=== PATIENT | female | born 1965 | race Caucasian/White ===

== ENCOUNTER 2022-12-14 13:56 | Outpatient (REF) | payer OTHER, SELFPAY ==
[2022-12-14 15:49] LABS: Urine Cytology See Pathology rpt
[2022-12-14 15:55] LABS: Blood Urea Nitrogen 6 mg/dL (9-16); Estimated Glomerular Filt Rate > 60
== END 2022-12-14 13:57 | disposition home or self-care (01) ==
LOC: HO.LAB 13:56
PROVIDERS: PCP Internal Medicine Medical Oncology; Visit Provider Nurse Practitioner Family
DX: N39.46 Mixed incontinence (principal); R31.29 Other microscopic hematuria; N32.81 Overactive bladder; R31.0 Gross hematuria
CPT/HCPCS: 36415; 51798; 82565; 84520; 88112; 99202

== ENCOUNTER 2022-12-14 16:08 | Outpatient (REF) | payer OTHER, SELFPAY | END 2022-12-14 16:09 | disposition home or self-care (01) | LOC: HO.LNP 16:08 | PROVIDERS: Visit Provider Nurse Practitioner Family | DX: Z13.89 Encounter for screening for other disorder (principal) ==

== ENCOUNTER 2023-01-09 11:00 | Outpatient (REF) | payer OTHER, SELFPAY ==
--- NOTE | ~2023-01-09 | CT_ITS ---
EXAMINATION: CT ABDOMEN AND PELVIS WITHOUT AND WITH CONTRAST CLINICAL INFORMATION: Gross hematuria COMPARISON: None available. TECHNIQUE: Noncontrast CT of the abdomen and pelvis is performed followed by split bolus contrast-enhanced images using 85 mL Omnipaque 350 contrast.? Postcontrast imaging is performed during the combined nephrogram and excretion phase. Sagittal and coronal reformatted images were obtained on the technologist's workstation for both the precontrast and postcontrast phases. This CT examination was performed using dose optimization techniques as appropriate, variously including the following: *Automated exposure control *Adjustment of mA and/or kV according to patient size (this includes techniques or standardized protocols for targeted exams where dose is matched to indication/reason for exam; i.e. extremities or head) *Use of iterative reconstruction technique DLP: 378 mGy-cm FINDINGS: LUNG BASES: Minimal compressive atelectasis right lung base. Heart size is normal. LIVER, GALLBLADDER, AND BILIARY TREE: The liver is normal in size, shape, and attenuation. No focal hepatic lesion or biliary ductal dilatation is present. The gallbladder is unremarkable with no evidence of radiopaque gallstones, gallbladder wall thickening, or obvious pericholecystic inflammatory changes. PANCREAS: Unremarkable. SPLEEN: Unremarkable. ADRENAL GLANDS: Unremarkable. KIDNEYS AND URETERS: On noncontrast CT there is no radiopaque renal or ureteral calculi. Following contrast administration there is bilateral symmetrical nephrograms with left kidney measuring 12.1 cm right kidney measuring 11.8 cm. There are bilateral extrarenal kidney pelvises. There is good opacification of kidney pelvis and the ureters without any intraluminal filling defect or narrowing. No perinephric stranding visualized. BLADDER: The bladder is unremarkable. GASTROINTESTINAL TRACT: There is diffuse colonic diverticulosis with mild mural thickening involving the sigmoid colon but no pericolic fat stranding seen to suspect any acute inflammatory process. ABDOMINAL WALL: No significant hernia is appreciated. LYMPH NODES: Normal. VASCULAR: Unremarkable. PELVIC VISCERA: The uterus is retroverted. No adnexal mass or free fluid seen. OSSEUS STRUCTURES: There is grade 1 anterolisthesis L4-L5 and degenerative disc changes L4-L5 and L5/S1 disc levels. Rest the disc levels are unremarkable. Mild facet joint arthropathy L5 4-5 disc level is noted. No aggressive lytic or sclerotic process seen. CT/CT urogram IMPRESSION: 1. No radiopaque urolith or hydroureteronephrosis. There are bilateral extrarenal kidney pelvises. The bladder is unremarkable. 2. Diffuse colonic diverticulosis with mild mural thickening involving the sigmoid colon but no pericolic fat stranding seen to suspect any acute inflammatory process. 3. Grade 1 anterolisthesis L4 over L5 with degenerative disc changes L4-L5 and L5-S1 disc levels.
[2023-01-09] MEDS: iohexoL 350 MG/ML 100 ML INFUS..BTL IV (11:44)
== END 2023-01-09 11:01 | disposition home or self-care (01) ==
LOC: HO.CT 11:00
PROVIDERS: PCP Internal Medicine Medical Oncology; Visit Provider Nurse Practitioner Family
DX: R31.0 Gross hematuria (principal)
CPT/HCPCS: 74178; Q9967

== ENCOUNTER 2023-01-09 11:46 | Outpatient (REF) | payer OTHER, SELFPAY ==
--- NOTE | ~2023-01-09 | MM_ITS ---
EXAMINATION: MM SCREENING DIGITAL BREAST TOMOSYNTHESIS, BILATERAL CLINICAL INFORMATION: Screening. Asymptomatic. Prior [id number] mammography from [place] currently unavailable. Prior local mammogram 2005, purged. No known family history breast cancer. The lifetime risk of breast cancer based on the Tyrer-Cuzick Model is 5%. COMPARISON: None. TECHNIQUE: Digital breast tomosynthesis is performed in both the craniocaudal and mediolateral oblique views along with computer-aided detection (CAD). Synthesized 2D images are generated from the tomosynthesis. FINDINGS: There are scattered areas of fibroglandular density (ACR BI-RADS breast composition Category b). There are no significant masses, abnormal calcifications, or other abnormalities. The axilla and skin contours are unremarkable. Radiology department staff will attempt to retrieve prior [id number] mammography to allow for comparison in an addendum report. MM/MM tomosynthesis screening BI IMPRESSION: No mammographic evidence of malignancy. ASSESSMENT: BI-RADS 1: Negative RECOMMENDATION: -Routine annual mammography screening. -Radiology department staff will attempt to retrieve prior [id number] mammography to allow for comparison in an addendum report. This patient's information was entered into a reminder system with a target due date for their next mammogram.
--- NOTE | ~2023-01-09 | MM_ITS ---
EXAMINATION: BONE DENSITOMETRY CLINICAL INDICATION: Menopausal and perimenopausal disorder, unspecified. COMPARISON: None (current study represents initial baseline exam). TECHNIQUE: Using a [employer] DXA System (software version: 13.1) manufactured by [employer], dual-energy x-ray absorptiometry was performed of the lumbar spine and left hip. The images are of good technical quality. Summary results are attached. FINDINGS: AP SPINE L1-L4: BMD 0.790 g/cm2, Z-score -1.8, T-score -3.2, osteoporosis. LEFT FEMUR, NECK: BMD 0.674 g/cm2, Z-score -1.2, T-score -2.6, osteoporosis. LEFT FEMUR, TOTAL: BMD 0.698 g/cm2, Z-score -1.4, T-score -2.5, osteoporosis. IDENTIFIED RISK FACTORS: Menopause, height loss, tobacco use (current smoker). HISTORY OF FRACTURE: None listed. MEDICATIONS: Vitamin D. MM/XR DEXA axial skeleton IMPRESSION: 1. DIAGNOSIS: Osteoporosis based on the lowest T-score value of -3.2 in the lumbar spine applying World Health Organization criteria. 2. 10-YEAR FRACTURE RISK PREDICTION, FRAX: According to the guidelines, FRAX calculation should only be performed on patients in the osteopenia bone density category. Therefore, FRAX was not performed on this patient. 3. Treatment Recommendations: NOF guidelines recommend consideration for treatment in postmenopausal women and men age 50 and older presenting with the following: -A hip or vertebral (clinical or morphometric) fracture. -T-score less than or equal to -2.5 at the femoral neck or spine after appropriate evaluation to exclude secondary causes. -Low bone mass at the hip or spine and a 10-year fracture probability by FRAX of greater than or equal to 3% for hip fracture or greater than or equal to 20% for major osteoporotic fracture based on the [place] adapted WHO algorithm. 4. Other Recommendations: All treatment decisions require clinical judgment and consideration of individual patient factors, including patient preferences, comorbidities, previous drug use, risk factors not captured in the FRAX model (e.g. frailty, falls, vitamin D deficiency, increased bone turnover, interval significant decline in bone density) and possible under or overestimation of fracture risk by FRAX. Additional medical evaluation for secondary cause of low bone mineral density may be appropriate. FUTURE SCAN RECOMMENDATION: People with diagnosed cases of osteoporosis or at high risk for fracture should have regular bone mineral density tests. For patients eligible for Medicare, routine testing is allowed once every 2 years. The testing frequency can be increased to one year for patients who have rapidly progressing disease, those who are receiving or discontinuing medical therapy to restore bone mass, or have additional risk factors.
== END 2023-01-09 11:47 | disposition home or self-care (01) ==
LOC: HO.MAMMO 11:46
PROVIDERS: Visit Provider Internal Medicine Medical Oncology
DX: Z12.31 Encounter for screening mammogram for malignant neoplasm of breast (principal); Z13.820 Encounter for screening for osteoporosis; Z78.0 Asymptomatic menopausal state
CPT/HCPCS: 77063; 77067; 77080

== ENCOUNTER 2023-01-26 11:02 | Outpatient (REF) | payer OTHER, SELFPAY ==
[2023-01-26 11:23] LABS: MANUAL DIFF FLAG NO
[2023-01-26 12:07] LABS: Basophils Absolute Auto 0.1 X10*3/uL (0.0-0.2); Basophils Percent Auto 0.5 % (0-2); Eosinophils Absolute Auto 0.1 X10*3/uL (0.0-0.4); Eosinophils Percent Auto 0.9 % (0-4); Hematocrit 43.7 % (37.0-47.0); Hemoglobin 14.9 g/dl (12.0-16.0); Imm Gran Abs Auto 0.07 X10*3/uL (0.00-0.03); Imm Gran Pct Auto 0.7 % (0.0-0.4); Lymphocytes Absolute Auto 2.6 X10*3/uL (1.2-4.9); Lymphocytes Percent Auto 26.2 % (20-40); Mean Corpuscular HGB Conc 34.1 g/dl (31.0-35.0); Mean Corpuscular Hemoglobin 34.6 pg (27.0-33.0); Mean Corpuscular Volume 101.4 fL (80.0-98.0); Mean Platelet Volume 9.2 fL (9.4-12.3); Monocytes Absolute Auto 0.6 X10*3/uL (0.1-1.2); Monocytes Percent Auto 5.9 % (2-11); Neutrophils Absolute Auto 6.6 x10*3/uL (2.0-8.3); Neutrophils Percent Auto 65.8 % (45-73); Platelet Count 295 X10*3/uL (160-400); Red Blood Count 4.31 X10*6/uL (4.20-5.50); Red Cell Distribution Width 12.5 % (11.0-16.0); White Blood Count 10.1 X10*3/uL (4.8-10.8)
[2023-01-26 12:47] LABS: Erythrocyte Sedimentation Rate 5 MM/HR (0-20)
[2023-01-26 13:09] LABS: Vitamin D 25-OH Total 34.4 ng/mL (>30)
[2023-01-26 13:11] LABS: Alanine Aminotransferase 24 U/L (0-31); Albumin Level 4.3 g/dL (3.5-5.0); Alkaline Phosphatase 83 U/L (39-117); Anion Gap 14 (12-20); Aspartate Amino Transferase 30 U/L (5-31); Bilirubin Total 0.9 mg/dL (0.0-1.0); Blood Urea Nitrogen < 3 mg/dL (9-16); Calcium 9.4 mg/dL (8.4-10.2); Carbon Dioxide 26 mmol/L (22-29); Chloride 102 mmol/L (96-108); Cholesterol 174 mg/dL; Estimated Glomerular Filt Rate > 60; Glucose Fasting 86 mg/dL (60-99); HDL Cholesterol 63 mg/dL; LDL Cholesterol Calculated 97 mg/dl; Potassium 3.4 mmol/L (3.3-5.1); Sodium 139 mmol/L (135-145); Total Protein 7.2 g/dL (6.5-8.0); Triglycerides 71 mg/dL
== END 2023-01-26 11:03 | disposition home or self-care (01) ==
LOC: HO.LAB 11:02
PROVIDERS: PCP Internal Medicine Medical Oncology; Visit Provider Internal Medicine Medical Oncology
DX: I10 Essential (primary) hypertension (principal); K59.00 Constipation, unspecified; R19.7 Diarrhea, unspecified; E55.9 Vitamin D deficiency, unspecified; E78.5 Hyperlipidemia, unspecified; N39.3 Stress incontinence (female) (male); R31.29 Other microscopic hematuria; R39.15 Urgency of urination
CPT/HCPCS: 36415; 52000; 80053; 80061; 82306; 85025; 85652

== ENCOUNTER 2023-01-30 12:57 | Outpatient (REF) | payer OTHER, SELFPAY ==
--- NOTE | ~2023-01-30 | US_ITS ---
EXAMINATION: US PELVIS CLINICAL INFORMATION: Abdominal distention, pelvic pain and bloating COMPARISON: Previous CT of the abdomen and pelvis most recent January 2023 TECHNIQUE: Ultrasound of the pelvis is performed using both transabdominal and transvaginal transducers along with Doppler. Transvaginal imaging is performed due to inadequate visualization transabdominally. FINDINGS: The uterus is retroverted and retroflexed and measures 6.7 x 3.3 x 4.1 cm in dimension. The endometrium is not well visualized. The endometrium does not appear thickened. No focal uterine lesion is seen. The ovaries are not seen. There is a small amount of fluid in the pelvis. There is question of bowel wall thickening. US/US pelvic and transvaginal IMPRESSION: Limited exam. Normal-appearing uterus. Ovaries not seen. Small amount of fluid in the pelvis and question bowel wall thickening. Follow-up CT scan should be considered if clinically indicated.
== END 2023-01-30 12:58 | disposition home or self-care (01) ==
LOC: HO.US 12:57
PROVIDERS: PCP Internal Medicine Medical Oncology; Visit Provider Internal Medicine Medical Oncology
DX: R14.0 Abdominal distension (gaseous) (principal); R10.2 Pelvic and perineal pain
CPT/HCPCS: 76830; 76856

== ENCOUNTER 2023-02-01 11:35 | Outpatient (REF) | payer OTHER, SELFPAY ==
[2023-02-01 13:19] LABS: Appearance Urine Clear; Color Urine Yellow; Glucose Urine UA Negative (Negative); Leukocyte Esterase Urine Negative (Negative); Nitrite Urine Negative (Negative); Specific Gravity - Urine <= 1.005 (1.005-1.025); UMIC TRIGGER UA YES; Urine Blood Moderate (2+) (Negative); Urine Ketones Negative (Negative); Urine Protein Negative (Neg-Trace)
[2023-02-01 13:27] LABS: Bacteria Urine None Seen (None Seen); Hyaline Casts Urine 0-2 /LPF (0-2); Squamous Epithelial Cell Urine 0-2 /HPF (0-2); WBC Urine 0-5 /HPF (0-5)
== END 2023-02-01 11:36 | disposition home or self-care (01) ==
LOC: HO.10HDL 11:35
PROVIDERS: Visit Provider Internal Medicine Medical Oncology
DX: R32 Unspecified urinary incontinence (principal)
CPT/HCPCS: 81001; 87086

== ENCOUNTER → 2023-02-22 15:00 | Outpatient (BNVA) | payer OTHER, SELFPAY | PROVIDERS: PCP Internal Medicine Medical Oncology; Visit Provider Nurse Practitioner | DX: K57.92 Diverticulitis of intestine, part unspecified, without perforation or abscess without bleeding (principal); R10.9 Unspecified abdominal pain | CPT/HCPCS: 99202 ==

== ENCOUNTER 2023-03-28 09:19 | Outpatient (REF) | payer OTHER, SELFPAY ==
--- NOTE | ~2023-03-28 | CT_ITS ---
EXAMINATION: CT ABDOMEN AND PELVIS WITH CONTRAST CLINICAL INFORMATION: Unspecified abdominal pain. COMPARISON: CT of the abdomen and pelvis with IV contrast 01/18/2008. TECHNIQUE: Multidetector volumetric images were obtained from the superior aspect of the liver through the pubic symphysis following administration 85 mL of Omnipaque 350 intravenous contrast. Sagittal and coronal reformatted images were obtained on the technologist's workstation. Oral contrast: No This CT examination was performed using dose optimization techniques as appropriate, variously including the following: *Automated exposure control *Adjustment of mA and/or kV according to patient size (this includes techniques or standardized protocols for targeted exams where dose is matched to indication/reason for exam; i.e. extremities or head) *Use of iterative reconstruction technique DLP: 393 mGy-cm FINDINGS: LUNG BASES: The lung bases are clear. LIVER, GALLBLADDER, AND BILIARY TREE: The liver is normal in size, shape, and diffusely attenuated. No focal hepatic lesion or biliary ductal dilatation is present. The gallbladder is unremarkable with no evidence of radiopaque gallstones, gallbladder wall thickening, or obvious pericholecystic inflammatory changes. PANCREAS: Unremarkable. SPLEEN: Unremarkable. ADRENAL GLANDS: Unremarkable. KIDNEYS AND URETERS: The kidneys are normal in size, shape, and attenuation. No hydronephrosis, hydroureter, or calculi seen. No perinephric stranding. BLADDER: Unremarkable. GASTROINTESTINAL TRACT: There is scattered stool, diverticula and gas seen throughout the colon without distention. There is mild mural thickening involving sigmoid colon but no pericolic fat stranding seen. The small bowel loops are normal caliber. Appendix is normal caliber. Stomach is nondistended. No free air or free fluid seen. ABDOMINAL WALL: No significant hernia is appreciated. LYMPH NODES: Normal. VASCULAR: Mild atherosclerosis without dilation of the abdominal aorta. PELVIC VISCERA: The uterus is anteverted with 2 hypodense areas in the left adnexa, likely ovarian cysts measuring 7 mm and 1 cm and approximately 24 Hounsfield units, likely ovarian cysts. OSSEOUS STRUCTURES: There is grade 1 anterolisthesis at L4-L5 with degenerative disc changes at L4-L5 and L5-S1 disc level. No aggressive lytic or sclerotic process is seen. CT/CT abdomen pelvis w IV con IMPRESSION: 1. Colonic diverticulosis most extensive in the sigmoid colon with mild mural thickening but no pericolic fat stranding. 2. Mild hepatic steatosis without focal lesion. 3. Grade 1 anterolisthesis at L4 over L5 with degenerative disc changes at L4-L5 and L5-S1 disc levels. Fleischner guidelines were followed.
[2023-03-28] MEDS: iohexoL 350 MG/ML 100 ML INFUS..BTL 85 ML IV (11:41)
[2023-03-28] MEDS: Barium Sulfate Oral (Berry) 450 ML ORAL.SUSP 900 ML PO (11:58)
[2023-03-29 09:56] LABS: Creatinine POC 0.6 mg/dL (0.5-1.4); GFR POC 60
== END 2023-03-28 09:20 | disposition home or self-care (01) ==
LOC: HO.CT 09:19
PROVIDERS: PCP Internal Medicine Medical Oncology; Visit Provider Nurse Practitioner
DX: R10.9 Unspecified abdominal pain (principal)
CPT/HCPCS: 74177; 82565; Q9967

== ENCOUNTER 2023-04-19 11:29 | Outpatient (AMB) | payer OTHER, SELFPAY ==
--- NOTE | 2023-04-19 11:30 | A.OFFVIS_ITS ---
Intake Vital Signs 04/19/23 11:34 Height 5 ft 3.5 in Weight 113 lb 5.082 oz BMI 19.8 BP 136/88 Blood Pressure Location Rt brachial Position Sitting Pulse 91 Intake Visit Reasons: F/U CT Scan Intake Note: Patient presents to in office visit today in follow up of CT scan. CC: Patient reports her symptoms continue to be the same. She c/o LLQ abdominal pain, bloating, poor appetite, constipation and diarrhea (that comes out as nuggets). Denies any new GI symptoms. 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 This coupled with her elevated MCV an AST greater than ALT making the seriously question if she has an alcohol use disorder. She has been having constant LLQ pain, she used to have cramps in this area off and on but now it has been constant. She says that she was tx'ed with an antibiotic and there is only cipro (so not the correct coverage for TICS). She does have a hx of diverticulitis many years ago. Her normal BM's are looser, no CIC. Watery stools are her baseline. She has post prandial BM's at her baseline but now she has severe pain in the LLQ and bloating. . She had a CT urogram and a transvaginal US that showed ? thickening in the sigmoid.? I HAD SPENT TIME EDUCATING?THE PATIENT THAT THIS IS NOT a definite finding.? That particularly since she did not have p.o. contrast thickening frequently can be an artifact from underdistention of the colon. She had a colonoscopy about 15 years ago at [facility] and polyps were found - she has not had another.? Obviously she was poorly educated that she should be having a colonoscopy every 5 years.? However, we do not want put a scope an inflamed colon so I would like to get a better idea of what is really going on in there with an appropriate CT scan study and try to get her pain better controlled with appropriate antibiotic coverage. The patient was vigorously and thoroughly educated that she cannot drink any alcohol while she is on the Flagyl.? I took great pains let her know she will need to go 10 days without drinking any alcohol or she will vomit.? I let her know that this is a chemical reaction has nothing to do with decreasing the effectiveness of the antibiotic.? I let her know that even taking NyQuil which is dissolved in alcohol base will cause the vomiting to try to impress upon her how important it is that she avoid alcohol.? I can treat with Augmentin because she is allergic to amoxicillin.? We could consider Bactrim going forward. I am going to order CRP to try to rule out IBD, stool studies to try to rule out an acute infectious process other than diverticulitis, and a CT of the abdomen and pelvis with oral contrast especially since she is also sensitive on the right side of her abdomen as well. Since she is having tenesmus we may also consider dicyclomine but I do not start too many medications at the same time.? I think diverticulitis particularly given her history of having this in the past is the strongest likelihood for the source of her pathology but we really need to find a way to get her through the appropriate antibiotic therapy before we consider colonoscopy.? Putting a colonoscope into an inflamed: Increases the wrist rheumatic late of opportunistic infection and perforation. Return office visit in 2 weeks to see how she is doing and to go over what ever studies we have available at that time. (2) Diverticulitis: ?Code(s): K57.92 - Diverticulitis of intestine, part unspecified, without perforation or abscess without bleeding ? ? ? Orders: Orders CT abdomen pelvis w IV con Today R10.9 - Unspecifie d abdominal pain ? Blood Urea Nitroge n Today R10.9 - Unspecifie d abdominal pain ? Creatinine Today R10.9 - Unspecifie d abdominal pain ? C Reactive Protein Today R10.9 - Unspecifie d abdominal pain ? GI Panel Today R10.9 - Unspecifie d abdominal pain ? Medications: New levofloxacin 500 mg? PO DAILY 1 0 days 10 tabs 0RF K57.92 - Diverticu litis of intestine , part unspecified , without perforat ion or abscess wit hout bleeding ? metronidazole 500 mg? PO TID 10 days 30 tabs 0RF ? LABS:GI panel not performed CT ABDOMEN AND PELVIS 04/10/23 FINDINGS: LUNG BASES: The lung bases are clear.? LIVER, GALLBLADDER, AND BILIARY TREE: The liver is normal in size, shape, and diffusely attenuated. No focal hepatic lesion or biliary ductal dilatation is present. The gallbladder is unremarkable with no evidence of radiopaque gallstones, gallbladder wall thickening, or obvious pericholecystic inflammatory changes.? PANCREAS: Unremarkable.? SPLEEN: Unremarkable.? ADRENAL GLANDS: Unremarkable.? KIDNEYS AND URETERS: The kidneys are normal in size, shape, and attenuation. No hydronephrosis, hydroureter, or calculi seen. No perinephric stranding. ? BLADDER: Unremarkable.? GASTROINTESTINAL TRACT: There is scattered stool, diverticula and gas seen throughout the colon without distention. There is mild mural thickening involving sigmoid colon but no? pericolic fat stranding seen. The small bowel loops are normal caliber. Appendix is normal caliber. Stomach is nondistended. No free air or free fluid seen.? ABDOMINAL WALL: No significant hernia is appreciated.? LYMPH NODES: Normal. VASCULAR: Mild atherosclerosis without dilation of the abdominal aorta. PELVIC VISCERA: The uterus is anteverted with 2 hypodense areas in the left adnexa, likely ovarian cysts measuring 7 mm and 1 cm and approximately 24 Hounsfield units, likely ovarian cysts.? OSSEOUS STRUCTURES: There is grade 1 anterolisthesis at L4-L5 with degenerative disc changes at L4-L5 and L5-S1 disc level. No aggressive lytic or sclerotic process is seen.? CT/CT abdomen pelvis w IV con IMPRESSION: 1. Colonic diverticulosis most extensive in the sigmoid colon with mild mural thickening but no pericolic fat stranding.? ? 2. Mild hepatic steatosis without focal lesion. ? 3. Grade 1 anterolisthesis at L4 over L5 with degenerative disc changes at L4-L5 and L5-S1 disc levels. ? Fleischner guidelines were followed. TODAY'S VISIT She has not yet done the Gi panel. She still has pain in the LLQ that is constant and very severe with BM's I scream in pain when I have to move my bowels even if it is diarrhea or irina. We review the CT and there is no clear cause for her pain revealed. However, she does have ? thickening in the sigmoid but this is a common reading that is not usually pathologic but under-distension but this is why I ordered the Levaquin and Flagyl. She is unclear if there was any improvement with this, she also had dysuria and this improved along with her new incontinence pill. We will order colonoscopy for definitive dx and add thoracic spine xrays and a trial of bentyl. She has established diagnosis of cervical spondylosis has anterolisthesis at L4-L5 and a CT scan so possibility of orthopedic pain is in the differential diagnosis. There are no prior problems with anesthesia or sedation. She denies any cardiac or respiratory problems. There are no infectious disease problems. She had polyps removed [facility] 15 years ago but I do not have any pathology reports about this. ROV 3 weeks. [facility] Medical History Cervical spondylosis Degenerative joint disease of spine Fibromyalgia History of hypertension Insomnia Lumbar radiculopathy Lumbar spinal stenosis Nephrolithiasis Pyelonephritis Tobacco dependence Ureterolithiasis Urinary incontinence Surgical History H/O colonoscopy History of facial surgery History of hip surgery History of right knee surgery History of salpingectomy Social History Household Members Other:: Patient lives by herself Housing: Apartment Alcohol intake: current Alcohol intake frequency: a few times a week Patient Tobacco Use Status: Current everyday Tobacco user Tobacco use type: Cigarette Cigarette Packs Per Day: 1 Cigarettes Per Day: 20.0 Substance Use Type: Marijuana Review of Systems Const Denies fatigue, Denies fever(s), Denies night sweats, Denies poor appetite and Denies weight loss ENT Reports Normal hearing present, Denies dental pain, Denies dysphagia, Denies hearing loss, Denies mouth pain, Denies odynophagia, Denies throat swelling, Denies tongue swelling and Reports other (Dentition adequate) Card Reports no additional complaints Resp Reports no additional complaints GI Reports abdominal pain, Denies melena, Denies bloating, Denies hematochezia, Denies constipation, Reports GI cramping, Denies dysphagia, Denies excessive flatus, Denies early satiety, Denies heartburn, Denies diarrhea, Denies nausea, Denies odynophagia, Denies vomiting and Denies hematemesis Musc Reports back pain, Reports myalgias and Reports arthralgias Skin/Breast Denies pruritus, Denies lesions, Denies rash and Denies jaundice Neuro Reports Normal hearing present and Denies Abnormal speech present Endo Denies fatigue Aller/Immun Denies throat swelling and Denies tongue swelling Physical Exam Vital Signs: Last Vital Signs Pulse 91 04/19/23 11:34 BP 136/88 04/19/23 11:34 BMI result Body Mass Index 19.8 Const General: cooperative, no acute distress, well developed and well groomed Nutritional Appearance: average body habitus and well nourished Orientation/consciousness: oriented to person, oriented to place and oriented to time Limitations: No language barrier HEENT Head: Yes normocephalic and Yes atraumatic Eyes General: appearance normal, both eyes and all related structures Pupils: Equal, round and reactive pupils present Neck Neck: Yes normal visual inspection and Yes no lymphadenopathy Thyroid: Thyroid normal Resp Effort & Inspection: normal respiratory effort and able to speak in complete sentences Auscultation: clear to auscultation bilaterally Cardio Rate: regular rate Rhythm: regular rhythm Heart sounds: Normal, physiologic split S2 sound present Peripheral pulses: radial pulses present and posterior tibial pulses present GI Inspection: No distended and No Abdominal panniculus present Palpation (GI): Soft to palpation, Tenderness to palpation present (GI) in the LLQ, no guarding, not rigid and Hepatosplenomegaly present Percussion: Yes normal to percussion Auscultation: normal bowel sounds Rectal Exam - Female: deferred Skin General skin exam: no rashes or lesions noted, turgor normal, skin not dry, no jaundice, No spider nevi and no striae Rashes: no rashes Nails: normal Neuro General: oriented to person, oriented to place and oriented to time Cranial nerves: Yes Equal, round and reactive pupils present and Yes Normal hearing present Speech: No Abnormal speech present Extrem General: Yes normal to inspection, No clubbing, No cyanosis and No edema Psych Appearance: grossly normal and well kempt Mental Status: mental status grossly normal Speech and movement: Normal speech and movement present Affect: normal affect Attitude: cooperative Thought process: Normal thought process present and not confabulating Thought content: Normal thought content present Insight: Limited insight present (Psych) Judgement: Limited judgement present (Psych) Results Reviewed Results Reviewed: CT ABDOMEN AND PELVIS 04/10/23 FINDINGS: LUNG BASES: The lung bases are clear.? LIVER, GALLBLADDER, AND BILIARY TREE: The liver is normal in size, shape, and diffusely attenuated. No focal hepatic lesion or biliary ductal dilatation is present. The gallbladder is unremarkable with no evidence of radiopaque gallstones, gallbladder wall thickening, or obvious pericholecystic inflammatory changes.? PANCREAS: Unremarkable.? SPLEEN: Unremarkable.? ADRENAL GLANDS: Unremarkable.? KIDNEYS AND URETERS: The kidneys are normal in size, shape, and attenuation. No hydronephrosis, hydroureter, or calculi seen. No perinephric stranding. ? BLADDER: Unremarkable.? GASTROINTESTINAL TRACT: There is scattered stool, diverticula and gas seen throughout the colon without distention. There is mild mural thickening involving sigmoid colon but no? pericolic fat stranding seen. The small bowel loops are normal caliber. Appendix is normal caliber. Stomach is nondistended. No free air or free fluid seen.? ABDOMINAL WALL: No significant hernia is appreciated.? LYMPH NODES: Normal. VASCULAR: Mild atherosclerosis without dilation of the abdominal aorta. PELVIC VISCERA: The uterus is anteverted with 2 hypodense areas in the left adnexa, likely ovarian cysts measuring 7 mm and 1 cm and approximately 24 Hounsfield units, likely ovarian cysts.? OSSEOUS STRUCTURES: There is grade 1 anterolisthesis at L4-L5 with degenerative disc changes at L4-L5 and L5-S1 disc level. No aggressive lytic or sclerotic process is seen.? CT/CT abdomen pelvis w IV con IMPRESSION: 1. Colonic diverticulosis most extensive in the sigmoid colon with mild mural thickening but no pericolic fat stranding.? ? 2. Mild hepatic steatosis without focal lesion. ? 3. Grade 1 anterolisthesis at L4 over L5 with degenerative disc changes at L4-L5 and L5-S1 disc levels. ? Fleischner guidelines were followed Assessment & Plan Assessment & Plan (1) Left sided abdominal pain: Code(s): R10.9 - Unspecified abdominal pain Plan: She has not yet done the Gi panel. She still has pain in the LLQ that is constant and very severe with BM's I scream in pain when I have to move my bowels even if it is diarrhea or irina. We review the CT and there is no clear cause for her pain revealed. However, she does have ? thickening in the sigmoid but this is a common reading that is not usually pathologic but under-distension but this is why I ordered the Levaquin and Flagyl. She is unclear if there was any improvement with this, she also had dysuria and this improved along with her new incontinence pill. We will order colonoscopy for definitive dx and add thoracic spine xrays and a trial of bentyl. She has established diagnosis of cervical spondylosis has anterolisthesis at L4-L5 and a CT scan so possibility of orthopedic pain is in the differential diagnosis. There are no prior problems with anesthesia or sedation. She denies any cardiac or respiratory problems. There are no infectious disease problems. She had polyps removed [facility] 15 years ago but I do not have any pathology reports about this. ROV 3 weeks. (2) Back pain: Code(s): M54.9 - Dorsalgia, unspecified (3) Diverticulitis: Code(s): K57.92 - Diverticulitis of intestine, part unspecified, without perforation or abscess without bleeding (4) History of colon polyps: Comment: Fifteen years ago at [facility] Code(s): Z86.010 - Personal history of colonic polyps (5) Pre-op examination: Code(s): Z01.818 - Encounter for other preprocedural examination Orders: Orders XR thoracic spine 2V 04/19/23 R10.9 - Unspecified abdominal pain, M54.9 - Dorsalgia, unspecified Colonoscopy - GI Use Only 04/19/23 R10.9 - Unspecified abdominal pain, M54.9 - Dorsalgia, unspecified Medications: New peg 3350-electrolytes 236-22.74-6.74 -5.86 gram (Golytely) until fecal effluent is clear; do not exceed a total volume of 2,000 mL 240 mL PO Q10M 4,000 mL 0RF 1 day Z12.11 - Encounter for screening for malignant neoplasm of colon dicyclomine 20 mg PO QID 120 tabs 1RF 30 days Coding Level of Care Code Est Pt Level 4 (28579) Diagnoses Left sided abdominal pain R10.9 Back pain M54.9 Diverticulitis K57.92 History of colon polyps Z86.010 Pre-op examination Z01.818
[2023-04-19 11:34] VITALS: BP 136/88; PULSE 91; BMI 19.8
== END 2023-04-19 12:13 | disposition home or self-care (01) ==
PROVIDERS: PCP Internal Medicine Medical Oncology; Visit Provider Nurse Practitioner
DX: R10.9 Unspecified abdominal pain (principal); M54.9 Dorsalgia, unspecified; K57.92 Diverticulitis of intestine, part unspecified, without perforation or abscess without bleeding; Z86.010 Personal history of colon polyps; Z01.818 Encounter for other preprocedural examination
CPT/HCPCS: 99214

== ENCOUNTER 2023-04-19 11:29 | Outpatient (REF) | payer OTHER, SELFPAY ==
--- NOTE | ~2023-04-19 | XR_ITS ---
EXAMINATION: XR THORACOLUMBAR SPINE CLINICAL INFORMATION: Abdominal pain. COMPARISON: None available. TECHNIQUE: 2 views FINDINGS: There is normal thoracic kyphosis. The vertebral heights and alignment is normal. There is mild loss of T6-T7 and T7-T8 disc heights. There is minimal scoliosis. No visible acute fracture, dislocation or subluxation seen. The paravertebral soft tissues are normal. XR/XR thoracic spine 2V IMPRESSION: Mild scoliosis. Degenerative disc changes mid dorsal spine. No visible acute fracture, dislocation or lytic process seen.
== END 2023-04-19 11:30 | disposition home or self-care (01) ==
LOC: HO.XRAY 11:29
PROVIDERS: PCP Internal Medicine Medical Oncology; Visit Provider Nurse Practitioner
DX: R10.9 Unspecified abdominal pain (principal); M54.9 Dorsalgia, unspecified
CPT/HCPCS: 72070; 99212

== ENCOUNTER 2023-04-20 14:52 | Outpatient (REF) | payer OTHER, SELFPAY ==
[2023-04-21 09:37] LABS: Adenovirus F 40/41 Not Detected (Not Detect.); Campylobacter Detected (Not Detect.); Cryptosporidium Not Detected (Not Detect.); Cyclospora cayetanensis Not Detected (Not Detect.); E. coli EAEC Not Detected (Not Detect.); E. coli EPEC Not Detected (Not Detect.); E. coli ETEC Not Detected (Not Detect.); E. coli STEC Not Detected (Not Detect.); Entamoeba histolytica Not Detected (Not Detect.); Giardia lamblia Not Detected (Not Detect.); Plesiomonas shigelloides Not Detected (Not Detect.); Salmonella Not Detected (Not Detect.); Shigella sp./EIEC Not Detected (Not Detect.); Vibrio Not Detected (Not Detect.); Vibrio Cholerae Not Detected (Not Detect.); Yersinia enterocolitica Not Detected (Not Detect.)
[2023-04-21 09:38] LABS: Astrovirus Not Detected (Not Detect.); Norovirus GI/GII Not Detected (Not Detect.); Rotavirus A Not Detected (Not Detect.); Sapovirus Not Detected (Not Detect.)
== END 2023-04-20 14:53 | disposition home or self-care (01) ==
LOC: HO.LNP 14:52
PROVIDERS: Visit Provider Nurse Practitioner
DX: R10.9 Unspecified abdominal pain (principal)
CPT/HCPCS: 87507

== ENCOUNTER 2023-04-30 11:17 | Outpatient (AMB) | payer OTHER, SELFPAY ==
--- NOTE | 2023-04-30 02:14 | A.OFFVIS_ITS ---
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 04/30/2023? She was last seen by me on 01/26/2023 for microscopic hematuria. Myrbetriq 50 mg QD was ordered at that time, and advised to follow up after 3 months during that time. I reviewed the CAT scan of the abdomen/pelvis results from 03/28/2023 revealed colonic diverticulosis most extensive in the sigmoid colon with mild mural thickening but no pericolic fat stranding.? Mild hepatic steatosis without focal lesion.? Grade 1 anterolisthesis at L4 over L5 with degenerative disc changes at L4-L5 and L5-S1 disc levels. She states that she is taking Myrbetriq with benefit; however she reports urine leakage while coughing, persists but is not bothersome. She states that she had tried Kegel?s exercises with minimal benefit. She states she is scheduled for colonoscopy soon. I discussed with the patient that in future if her stress incontinence worsens, will consider minimal invasive treatment options including bulking agent into the bladder neck. Review of charts: Last visit: 01/26/2023? OV?12/14/22-- with SAIMA Arellano for complains of urinary incontinence. Has history of cigarette use. [employer]IVER discussed work up for microscopic hematuria She was sent for CT urogram and urine for cytology. 01/09/23-- The patient complains having pain on the right lower quadrant. She complains urgency and bladder pressure. States that oxybutynin prescribed by [employer]IVER did not help so she stopped taking it. CT urogram/urinary tract are WNL. Collected--12/14/22--Urine cytology-- negative for malignant cells. Cystoscopy findings--No suspicious bladder lesion visualized. Plan: Myrbetriq 50 mg QD. Follow-up after 3 months. 04/30/2023: Plan: Patient is doing better with Myrbetriq. Will continue Myrbetriq 50 mg daily and follow up in one year. [facility] Medical History Cervical spondylosis Degenerative joint disease of spine Fibromyalgia History of hypertension Insomnia Lumbar radiculopathy Lumbar spinal stenosis Nephrolithiasis Pyelonephritis Tobacco dependence Ureterolithiasis Urinary incontinence Surgical History H/O colonoscopy History of facial surgery History of hip surgery History of right knee surgery History of salpingectomy Social History Household Members Other:: Patient lives by herself Housing: Apartment Alcohol intake: current Alcohol intake frequency: a few times a week Patient Tobacco Use Status: Current everyday Tobacco user Cigarette Packs Per Day: 20 Substance Use Type: Marijuana Review of Systems Const All systems reviewed & are unremarkable except as noted in HPI and below Reports no additional complaints Eyes Reports no additional complaints ENT Reports no additional complaints Card Denies dyspnea Resp Denies cough and Denies dyspnea GI Reports no additional complaints Reports no additional complaints Musc Reports no additional complaints Skin/Breast Denies rash and Denies unusual bruising Neuro Reports no additional complaints Psych Reports no additional complaints Endo Reports no additional complaints Raymond/Lymph Reports no additional complaints Aller/Immun Reports no additional complaints Results Reviewed Results Reviewed: Date of Service: 03/28/23 EXAMINATION: CT ABDOMEN AND PELVIS WITH CONTRAST? CLINICAL INFORMATION: Unspecified abdominal pain.? COMPARISON: CT of the abdomen and pelvis with IV contrast 01/18/2008. FINDINGS: LUNG BASES: The lung bases are clear.? LIVER, GALLBLADDER, AND BILIARY TREE: The liver is normal in size, shape, and diffusely attenuated. No focal hepatic lesion or biliary ductal dilatation is present. The gallbladder is unremarkable with no evidence of radiopaque gallstones, gallbladder wall thickening, or obvious pericholecystic inflammatory changes.? PANCREAS: Unremarkable.? SPLEEN: Unremarkable.? ADRENAL GLANDS: Unremarkable.? KIDNEYS AND URETERS: The kidneys are normal in size, shape, and attenuation. No hydronephrosis, hydroureter, or calculi seen. No perinephric stranding. ? BLADDER: Unremarkable.? GASTROINTESTINAL TRACT: There is scattered stool, diverticula and gas seen throughout the colon without distention. There is mild mural thickening involving sigmoid colon but no? pericolic fat stranding seen. The small bowel loops are normal caliber. Appendix is normal caliber. Stomach is nondistended. No free air or free fluid seen.? ABDOMINAL WALL: No significant hernia is appreciated.? LYMPH NODES: Normal. VASCULAR: Mild atherosclerosis without dilation of the abdominal aorta. PELVIC VISCERA: The uterus is anteverted with 2 hypodense areas in the left adnexa, likely ovarian cysts measuring 7 mm and 1 cm and approximately 24 Hounsfield units, likely ovarian cysts.? OSSEOUS STRUCTURES: There is grade 1 anterolisthesis at L4-L5 with degenerative disc changes at L4-L5 and L5-S1 disc level. No aggressive lytic or sclerotic process is seen.? IMPRESSION: 1. Colonic diverticulosis most extensive in the sigmoid colon with mild mural thickening but no pericolic fat stranding.? ? 2. Mild hepatic steatosis without focal lesion. ? 3. Grade 1 anterolisthesis at L4 over L5 with degenerative disc changes at L4-L5 and L5-S1 disc levels. Assessment & Plan Assessment & Plan (1) Stress incontinence: Code(s): N39.3 - Stress incontinence (female) (male) Plan: Patient is doing better with Myrbetriq. Will continue Myrbetriq 50 mg daily and follow up in one year. (2) Microhematuria: Code(s): R31.29 - Other microscopic hematuria (3) Urinary urgency: Code(s): R39.15 - Urgency of urination (4) Sensation of pressure in bladder area: Code(s): R39.89 - Other symptoms and signs involving the genitourinary system Patient Instructions: The patient had an opportunity to ask questions regarding treatment plan. All questions were answered. Imaging, Laboratory studies and physical exam results were discussed and reviewed in detail. No major barriers to understanding were identified. The patient expressed understanding and agreement with the above treatment plan.? ? ? The patient is aware they should contact our office by phone for worsening of their current condition or the appearance of new symptoms. Compliance is encouraged with any medications and followup testing that is ordered.? ? ? It is a privilege to be allowed the opportunity to participate in the urologic care of your patient. If you have any questions or concerns regarding treatment for the above conditions please do not hesitate to contact me. The office telephone contact is [phone].? ? ? This note is constructed in part using voice recognition software. While every effort has been made to ensure accuracy waiter/waitress informal errors may have been included.? ? ? Yours sincerely,? ? ? Lianna Robertson MD? ? Coding Level of Care Code Est Pt Level 3 (97237) Diagnoses Stress incontinence N39.3 Microhematuria R31.29 Urinary urgency R39.15 Sensation of pressure in bladder area R39.89
== END 2023-04-30 11:53 | disposition home or self-care (01) ==
PROVIDERS: PCP Internal Medicine Medical Oncology; Visit Provider Urology
DX: N39.3 Stress incontinence (female) (male) (principal); R31.29 Other microscopic hematuria; R39.15 Urgency of urination; R39.89 Other symptoms and signs involving the genitourinary system
CPT/HCPCS: 99213

== ENCOUNTER → 2023-04-30 11:17 | Outpatient (BNVA) | payer OTHER, SELFPAY | PROVIDERS: Visit Provider Urology | DX: N39.3 Stress incontinence (female) (male) (principal); R31.29 Other microscopic hematuria; R39.15 Urgency of urination | CPT/HCPCS: 99212 ==

== ENCOUNTER 2023-05-01 11:58 | Day surgery (SDC) | payer OTHER, SELFPAY ==
--- NOTE | 2023-05-01 12:38 | HO.ANESPROP2 ---
HPI - Anesthesia Eval Consult details Narrative: colonoscopy PMFSH Active Problems Active Problems: All Active Problems (Updated 04/19/23 @ 12:04 by LAKHWINDER Flannery) Back pain (Acute) Diverticulitis (Acute) Left sided abdominal pain (Acute) High cholesterol (Acute) Hypertension (Acute) Sensation of pressure in bladder area (Acute) Urinary urgency (Acute) Stress incontinence (Acute) Microhematuria (Acute) Past Medical History Medical History Cervical spondylosis Degenerative joint disease of spine Fibromyalgia History of hypertension Insomnia Lumbar radiculopathy Lumbar spinal stenosis Nephrolithiasis Pyelonephritis Tobacco dependence Ureterolithiasis Urinary incontinence Family History Family history of problems with anesthesia: No Surgical History Surgical History H/O colonoscopy History of facial surgery History of hip surgery History of right knee surgery History of salpingectomy History of Problems with Anesthesia: No Social History Social History Household Members Other:: Patient lives by herself Housing: Apartment Alcohol intake: current Alcohol intake frequency: a few times a week Patient Tobacco Use Status: Current everyday Tobacco user Cigarette Packs Per Day: 20 Substance Use Type: Marijuana Advance Directives: No Advance Directives Information Provided: Yes Meds Allergies Allergy/AdvReac Type Severity Reaction Status Date / Time amoxicillin [From Augmentin] Allergy Vomiting Verified 04/30/23 11:46 clavulanic acid Allergy Vomiting Verified 04/30/23 11:46 [From Augmentin] Home Medications Medication Instructions Recorded Confirmed Last Taken Type calcium carbonate 500 mg calcium 500 mg PO BID 02/22/23 Unknown History (1,250 mg) tablet (Oyster Shell Calcium) cholecalciferol (vitamin D3) 25 25 mcg PO DAILY 02/22/23 Unknown History mcg (1,000 unit) tablet Exam Exam Date and Time: May 01, 2023 1238 Airway Mallampati Class: II TM Dist: >3cm Neck ROM: Full Heart: rrr Lungs: CTA Assessment and Plan Assessment Anesthesia Assessment: Anesthesia Plan Discussed and Chart Reviewed Final Anesthetic Review Family History of Problems with Anesthesia: No History of Problems with Anesthesia: No NPO: Yes Final Preanesthetic Review: No Changes in Pt Med Stat, Meds/Allgs Chart Reviewed, Consent Obtained/Reviewed and Anes Risks/Benef Reviewed Patient Risk: Low Procedure Risk: Low Anesthetic Plan Anesthetic Plan: MAC: and Agree w/ Assess. and Plan Disposition: Standard PACU
[2023-05-01 12:40] VITALS: BMI 19.2
[2023-05-01 12:59] VITALS: BP 153/95; PULSE 80; RESP 16; TEMP 37; O2SAT 97
[2023-05-01] MEDS: Lactated Ringers 1,000 ML 80 ML IVCONT (13:08)
[2023-05-01] MEDS: ondansetron HCL 4 MG/2 ML VIAL IVPUSH (13:08)
--- NOTE | 2023-05-01 13:38 | MHC.SHP ---
Pre-Procedural Eval Section A Date of Service: 05/01/23 Section B Chief Complaint: Dorsalgia, unspecified, Unspecified abdominal pain Relevant Family History (Specify if Yes): No Relevant Social History: Tobacco Use Present Medications: see Short Stay Collaborative assessment Medical History: Significant History (Cervical spondylosis Degenerative joint disease of spine Fibromyalgia History of hypertension Insomnia Lumbar radiculopathy Lumbar spinal stenosis Nephrolithiasis Pyelonephritis Tobacco dependence Ureterolithiasis Urinary incontinence) History of Previous Operations: Relevant previous surgery/procedure and date(s) (H/O colonoscopy History of facial surgery History of hip surgery History of right knee surgery History of salpingectomy) Allergies: Allergies Allergy/AdvReac Type Severity Reaction Status Date / Time amoxicillin [From Augmentin] Allergy Vomiting Verified 04/30/23 11:46 clavulanic acid Allergy Vomiting Verified 04/30/23 11:46 [From Augmentin] Review of Systems Sugical H&P ROS: Negative: Constitution, Cardiovascular, Respiratory, Neurological, Psychiatric, Hem-Onc, Allergic/Immunologic, Gastrointestinal, Genitourinary, Musculoskeletal, Integumentary, Endocrine and Eyes/Ears/Nose/Throat Exam Surgical H&P Exam: Normal: HEENT, Normal: Heart, Normal: Lungs, Normal: Extremities, Normal: Abdomen, Normal: Skin and Normal: Neurological Plan Diagnosis/Plan: Unchanged I have reviewed the history and physical and performed a pertinent physical examination on my patient. No changes have occurred unless specified. Time Spent With Patient Time: Total time managing care of this patient today ____ minutes.
--- NOTE | 2023-05-01 13:52 | P.OP_ITS ---
Operative Note Operative Note Date of Service: 05/01/23 Narrative: Operative Information Procedure Description: Colonoscopy Indication: LLQ pain Anesthesia: MAC COLONOSCOPY Instrument: Olympus variable stiffness pediatric scope 190L Colonoscopy Monitoring: Vital signs and clinical assessment, continuous EKG monitoring, Pulse oximetry, Carbon Dioxide monitoring and blood pressure monitoring were done throughout the procedure. Colon withdrawal time was 14 minutes. Procedure: The patient was placed in the left lateral decubitis position and pre-procedure medications were administered. After a digital rectal examination of the ano-rectum, the video colonoscope was inserted into the rectum and advanced through the colon to the cecum/TI. The colonoscope was slowly withdrawn in a retrograde panoramic fashion and the colon mucosa was carefully examined including a retroflexed view of the rectum. Findings and interventions are described below. Procedure Difficulty: difficult Findings: Terminal Ileum-normal Cecum:normal Ascending Colon: scattered diverticula Transverse Colon -normal Descending Colon: moderate diverticulosis Sigmoid Colon: severe diverticulosis with mucosal hypertrophy and narrowing, with tight angulation of colon. 10 mm sessile polyp removed with cold snare Rectum: Retroflexion with medium sized internal hemorrhoids, grade I, At rectosigmoid jn there was mucosal hypertrophy and marked narrowing with erythema, bx taken, no masses seen Anorectum - normal Colon preparation: [place] Bowel Preparation Scale Right colon; 2 Transverse colon: 2 Left colon; 2 (0 = Unprepared colon segment with mucosa not seen due to solid stool that can not be cleared. 1 = Portion of mucosa of the colon segment seen, but other areas of the colon segment not well seen due to staining, residual stool and/or opaque liquid. 2 = Minor amount of residual staining, small fragments of stool and/or opaque liquid, but mucosa of colon segment seen well. 3 = Entire mucosa of colon segment seen well with no residual staining, small fragments of stool or opaque liquid) Impression and Post Procedure Diagnosis: polyp internal hemorrhoids diverticular disease- probably this is the cause of her LLQ pain non specific colitis possible SCAD Plan: High fiber diet leaflet Avoid straining at stool, epsom salts and sitz bath, anusol supps or cream, avoid constipation Repeat sigmoidoscopy in 3-6 months to re evaluate rectosigmoid area or earlier if clinically indicated--will also send her a trial of mesalamine supp to see if helps Above findings were reviewed with the patient and relevant handouts were provided if indicated.
[2023-05-01 14:34] VITALS: BP 141/97; PULSE 100; RESP 24; TEMP 36.8; O2SAT 96
[2023-05-01 14:49] VITALS: BP 158/93; PULSE 81; RESP 20; TEMP 36.2; O2SAT 98
[2023-05-01] MEDS: Dicyclomine HCl 10 MG CAPSULE PO (14:50)
== END 2023-05-01 15:11 | disposition home or self-care (01) ==
PROVIDERS: PCP Internal Medicine Medical Oncology; Visit Provider Internal Medicine Gastroenterology
PROC: 0DJD8ZZ Inspection of Lower Intestinal Tract, Via Natural or Artificial Opening Endoscopic (ICD-10-PCS; CPT 45378; principal; 2023-05-01 13:50)
DX: R10.32 Left lower quadrant pain (principal); Z87.19 Personal history of other diseases of the digestive system; Z86.010 Personal history of colon polyps; D12.5 Benign neoplasm of sigmoid colon; K57.30 Diverticulosis of large intestine without perforation or abscess without bleeding; K64.0 First degree hemorrhoids; K52.9 Noninfective gastroenteritis and colitis, unspecified; R14.0 Abdominal distension (gaseous); K76.0 Fatty (change of) liver, not elsewhere classified; M47.812 Spondylosis without myelopathy or radiculopathy, cervical region; M54.9 Dorsalgia, unspecified; M79.7 Fibromyalgia; I10 Essential (primary) hypertension; R63.4 Abnormal weight loss; Z68.1 Body mass index [BMI] 19.9 or less, adult; Z79.899 Other long term (current) drug therapy; Z88.1 Allergy status to other antibiotic agents; F17.210 Nicotine dependence, cigarettes, uncomplicated; Z98.890 Other specified postprocedural states
CPT/HCPCS: 45385; 45380; 88305; J2405; J3010

== ENCOUNTER → 2023-05-01 11:58 | Outpatient (BNV) | payer OTHER, SELFPAY | PROVIDERS: PCP Internal Medicine Medical Oncology; Visit Provider Internal Medicine Gastroenterology | DX: R10.32 Left lower quadrant pain (principal); K57.30 Diverticulosis of large intestine without perforation or abscess without bleeding; D12.5 Benign neoplasm of sigmoid colon; K64.0 First degree hemorrhoids | CPT/HCPCS: 45385 ==

== ENCOUNTER 2023-05-21 13:13 | Inpatient (IN) | payer OTHER, SELFPAY ==
--- NOTE | ~2023-05-21 | CT_ITS ---
EXAMINATION: CT ABDOMEN AND PELVIS WITH CONTRAST CLINICAL INFORMATION: LLQ pain rectal bleeding 2 weeks s/p colonoscopy COMPARISON: 03/28/2023 TECHNIQUE: Multidetector volumetric imaging was performed from the superior aspect of the liver through the pubic symphysis following administration of 85 mL Omnipaque 300 intravenous contrast. Sagittal and coronal reformatted images were obtained on the technologist workstation.. This CT examination was performed using dose optimization techniques as appropriate, variously including the following: *Automated exposure control *Adjustment of mA and/or kV according to patient size (this includes techniques or standardized protocols for targeted exams where dose is matched to indication/reason for exam; i.e. extremities or head) *Use of iterative reconstruction technique DLP: 300 mGy-cm FINDINGS: LUNG BASES: Interval dependent atelectasis and lower lobe calcified granuloma. LIVER, GALLBLADDER, AND BILIARY TREE: Mild diffuse fatty infiltration of the liver but no focal hepatic lesion nor biliary ductal dilatation. The gallbladder is unremarkable with mild gallbladder fundal fold but no evidence of radiopaque gallstones, gallbladder wall thickening, or obvious pericholecystic inflammatory changes. PANCREAS: Unremarkable. SPLEEN: Unremarkable. ADRENAL GLANDS: Unremarkable. KIDNEYS AND URETERS: The kidneys are normal in size, shape, and attenuation. No hydronephrosis, hydroureter, or calculi seen. No perinephric stranding. BLADDER: Unremarkable. GASTROINTESTINAL TRACT: Although decompressed there is rectal wall thickening concerning for focal proctitis. This area appeared more normal on the prior 03/28/2023 examination. Colonic diverticulosis more so in the sigmoid colon. No obstructive changes noted. Normal-appearing appendix in the right lower quadrant. Visualized small bowel unremarkable ABDOMINAL WALL: No significant hernia is appreciated. LYMPHOVASCULAR STRUCTURES: Vascular calcification within the aorta iliac system. No bulky adenopathy PELVIC VISCERA: Unremarkable. OSSEOUS STRUCTURES: Degenerative changes in the spine more so at L4/L5 and L5/S1. CT/CT abdomen pelvis w IV con IMPRESSION: Although decompressed there is rectal wall thickening with perirectal inflammatory change concerning for focal proctitis. This area appeared more normal on the prior 03/28/2023 examination. Colonic diverticulosis but no obvious diverticulitis.
[2023-05-21 13:53] VITALS: BP 141/95; PULSE 90; RESP 18; TEMP 36.8; O2SAT 96; BMI 19.8
--- NOTE | 2023-05-21 13:53 | ED.GIBLEED ---
HPI - GI Bleed General Chief complaint: GI Bleed Stated complaint: blood in stool abd pain Time Seen by Provider: 05/21/23 16:31 Source: patient Mode of arrival: ambulatory Limitations: no limitations History of Present Illness HPI Narrative: Patient comes to the emergency room complaining of 2 weeks of rectal bleeding. Patient states that approximately 2 weeks ago, patient had colonoscopy done, since then, she has had left lower quadrant pain and intermittent bright red blood rectal bleeding. Also, patient states that even before her colonoscopy, earlier this month she was diagnosed with that Campylobacter intestinal infection, completed a course of 10 days with Levaquin. Related Data Home Medications Medication Instructions Recorded Confirmed calcium carbonate 500 mg calcium 500 mg PO BID 02/22/23 (1,250 mg) tablet (Oyster Shell Calcium) cholecalciferol (vitamin D3) 25 25 mcg PO DAILY 02/22/23 mcg (1,000 unit) tablet Previous Rx's Medication Instructions Recorded mirabegron 50 mg tablet,extended 50 mg PO DAILY #90 tabs 01/26/23 release 24 hr (Myrbetriq) dicyclomine 20 mg tablet 20 mg PO QID 30 days #120 tabs 04/19/23 peg 3350-electrolytes 236 240 ml PO Q10M 1 day #4,000 mL 04/19/23 gram-22.74 gram-6.74 gram-5.86 gram solution (Golytely) mesalamine 1,000 mg rectal 1 g [place] BEDTIME 30 days #30 ea 05/01/23 suppository Allergies Allergy/AdvReac Type Severity Reaction Status Date / Time amoxicillin [From Augmentin] Allergy Vomiting Verified 04/30/23 11:46 clavulanic acid Allergy Vomiting Verified 04/30/23 11:46 [From Augmentin] Review of Systems Review of Systems: Constitutional : No Weight loss, No Fever, No Chills, No Night Sweats, No Fatigue, No Malaise ENT/Mouth : No Hearing loss, No Ear Pain, No Nasal Congestion, No Sinus Pain, No Hoarseness, No sore throat, No Rhinorrhea, No Swallowing Difficulty Eyes: No Eye Pain, No Swelling, No Redness, No Foreign Body, No Discharge, No Vision Changes Cardiovascular : No Chest Pain, No SOB, No Dyspnea on Exertion, No Orthopnea, No Edema, No Palpitations Respiratory : No Cough, No Sputum, No Wheezing, No Smoke Exposure, No Dyspnea Gastrointestinal : No Nausea, No Vomiting, complaining of bloody stool, bright red blood, left lower quadrant pain Genitourinary : no irregular bleeding, No Dysuria, No Urinary Frequency, No Hematuria, No Urinary Incontinence, No Urgency, No Flank Pain, No Urinary Flow Changes, No Hesitancy Musculoskeletal : No joint pain, No Myalgias, No Joint Swelling Skin : No Skin Lesions, No rash Neuro : No Weakness, No Numbness, No Paresthesias, No Loss of Consciousness, No Dizziness, No Headache Psych : No Anxiety/Panic, No Depression, No SI/HI/AH/VH, No Social Issues, Heme/Lymph: No Bruising, No Bleeding,No Lymphadenopathy Endocrine : No Polyuria, No Polydipsia, No Temperature Intolerance [facility] Past Medical History Medical History Pyelonephritis Nephrolithiasis Ureterolithiasis Insomnia History of hypertension Tobacco dependence Urinary incontinence Lumbar spinal stenosis Cervical spondylosis Lumbar radiculopathy Fibromyalgia Degenerative joint disease of spine Surgical History H/O colonoscopy History of facial surgery History of salpingectomy History of hip surgery History of right knee surgery Social History Social History Household Members Other:: Patient lives by herself Housing: Apartment Alcohol intake: current Alcohol intake frequency: a few times a week Patient Tobacco Use Status: Current everyday Tobacco user Tobacco use type: Cigarette Cigarette Packs Per Day: 1 Cigarettes Per Day: 20.0 Smoked in Last 30 Days: Yes Use of substances other than those prescribed or required for medical reasons: Yes Substance Use Type: Marijuana Advance Directives: No Advance Directives Information Provided: Yes Patient : No Physical Exam Vital Signs: Vital Signs: Last Vital Signs Temp 98.6 F 05/21/23 19:14 Pulse 86 05/21/23 19:14 Resp 18 05/21/23 16:43 BP 134/87 05/21/23 19:14 Pulse Ox 95 05/21/23 19:14 O2 Del Method Room Air 05/21/23 19:14 BMI result Body Mass Index 19.8 Const: Other: Appearance: Alert. Oriented X3. No acute distress. Eyes: Pupils equal, round and reactive to light. ENT: Pharynx normal. Neck: Normal inspection. Neck supple. No lymph nodes noted. No crepitus CVS: Normal heart rate and rhythm. Pulses normal. Normal S1 and S2 Respiratory: No respiratory distress. Breath sounds normal. No Wheezing. No rales Abdomen: Soft , tenderness to palpation the left lower quadrant, mild rebound and guarding Skin: Skin warm and dry. Normal skin color. Normal skin turgor. Extremities: No lower extremity edema. No Lacerations. No Rash Neuro: Oriented X 3. No motor deficit. No sensory deficit. Moving all extremities. No slurred speech. CN 2 through 12 grossly intact Psych: calm, cooperative, normal affect Course Course Course Narrative: RME - 57 yo female with history of colonic polyps, diverticulosis, hemorrhoids, colitis (all on recent colonoscopy 05/01/23) presents to the ER for evaluation of BRBPR that started on Sunday. No GIB history in the past. Reports 6 months of LLQ pain. Had CT in March colonic diverticulosis in the sigmoid colon with mild mural thickening. Reports fatigue and weakness. Reports several episodes per day but small volume. Plan: start w/ lab workup, ?GI bleed CT vs regular CT based on labs and if she is actively bleeding Medications Administered Generic Name Dose Route Start Last Admin Trade Name Freq PRN Reason Stop Dose Admin Sodium Chloride 1,000 mls @ 100 mls/hr 05/21/23 17:02 05/21/23 17:45 Ns IVCONT 05/22/23 03:01 100 mls/hr .Q10H ONE Administration Discontinued Medications Generic Name Dose Route Start Last Admin Trade Name Freq PRN Reason Stop Dose Admin Iohexol 100 ml 05/21/23 17:31 05/21/23 17:32 Iohexol 350 Mg/Ml 100 Ml Infus..Btl IV 05/21/23 17:32 85 ml ONCE ONE Administration Medical Decision Making Medical Decision Making [facility] Narrative: -my interpretation of labs: White blood cell count 9.7, hemoglobin and hematocrit stable. -patient's sodium 127, being repleted with IV fluids -urinalysis pending -my interpretation of CT scan, no small-bowel obstruction, no obvious source of bleeding Differential Diagnosis Differential Diagnoses: The differential diagnosis associated with the presentation includes (Diverticulitis, ovarian cyst, intestinal perforation, colonoscopy complication) Admission/Observation Consideration of admission/observation: Escalation of care including admission/observation considered (Patient being admitted) Consult Healthcare Provider Management of the patient was discussed with: Hospitalist Lab Data MDM Lab Attestation statement: I reviewed the patient's lab results. 05/21/23 14:04 05/21/23 14:04 Labs: Lab Results 05/21/23 Range/Units 14:04 WBC 9.7 (4.8-10.8) X10*3/uL RBC 4.10 L (4.20-5.50) X10*6/uL Hgb 14.6 (12.0-16.0) g/dl Hct 41.1 (37.0-47.0) % MCV 100.2 H (80.0-98.0) fL MCH 35.6 H (27.0-33.0) pg MCHC 35.5 H (31.0-35.0) g/dl RDW 12.1 (11.0-16.0) % Plt Count 235 (160-400) X10*3/uL MPV 8.4 L (9.4-12.3) fL Immature Gran % (Auto) 0.7 H (0.0-0.4) % Neut % (Auto) 54.5 (45-73) % Lymph % (Auto) 29.9 (20-40) % Evans % (Auto) 11.3 H (2-11) % Eos % (Auto) 3.0 (0-4) % Baso % (Auto) 0.6 (0-2) % Lymph # (Auto) 2.9 (1.2-4.9) X10*3/uL Evans # (Auto) 1.1 (0.1-1.2) X10*3/uL Eos # (Auto) 0.3 (0.0-0.4) X10*3/uL Baso # (Auto) 0.1 (0.0-0.2) X10*3/uL Abs Immat Gran (auto) 0.07 H (0.00-0.03) X10*3/uL Absolute Neuts (auto) 5.3 (2.0-8.3) x10*3/uL Absolute Nucleated RBC 0.000 (0.0-0.012) X10*3/uL Nucleated RBC % (auto) 0.0 (0.0-0.2) /100WBC PT 11.0 L (11.1-13.3) SEC INR 0.9 (0.9-1.1) APTT 32.9 (26.0-36.4) SEC Sodium 127 L (135-145) mmol/L Potassium 3.6 (3.3-5.1) mmol/L Chloride 94 L (96-108) mmol/L Carbon Dioxide 22 (22-29) mmol/L Anion Gap 15 (12-20) BUN < 3 L (9-16) mg/dL Creatinine 0.54 (0.5-1.4) mg/dL Estim Creat Clear Calc 91.0 Estimated GFR > 60 Random Glucose 82 (60-115) mg/dL Calcium 9.6 (8.4-10.2) mg/dL Magnesium 1.7 (1.6-2.6) mg/dL Total Bilirubin 0.4 (0.0-1.0) mg/dL Direct Bilirubin 0.2 (0.0-0.5) mg/dL AST 27 (5-31) U/L ALT 21 (0-31) U/L Alkaline Phosphatase 86 (39-117) U/L Total Protein 7.7 (6.5-8.0) g/dL Albumin 4.2 (3.5-5.0) g/dL Independent Interpretation I performed an independent interpretation of an: CT Scan Radiology Impression Discussion of test interpretation with radiology: I have reviewed the radiologist's reading. Radiologist Impression: FINDINGS: LUNG BASES: Interval dependent atelectasis and lower lobe calcified granuloma. LIVER, GALLBLADDER, AND BILIARY TREE: Mild diffuse fatty infiltration of the liver but no focal hepatic lesion nor biliary ductal dilatation. The gallbladder is unremarkable with mild gallbladder fundal fold but no evidence of radiopaque gallstones, gallbladder wall thickening, or obvious pericholecystic inflammatory changes. PANCREAS: Unremarkable. SPLEEN: Unremarkable. ADRENAL GLANDS: Unremarkable. KIDNEYS AND URETERS: The kidneys are normal in size, shape, and attenuation. No hydronephrosis, hydroureter, or calculi seen. No perinephric stranding. BLADDER: Unremarkable. GASTROINTESTINAL TRACT: Although decompressed there is rectal wall thickening concerning for focal proctitis. This area appeared more normal on the prior 03/28/2023 examination. Colonic diverticulosis more so in the sigmoid colon. No obstructive changes noted. Normal-appearing appendix in the right lower quadrant. Visualized small bowel unremarkable ABDOMINAL WALL: No significant hernia is appreciated. LYMPHOVASCULAR STRUCTURES: Vascular calcification within the aorta iliac system. No bulky adenopathy PELVIC VISCERA: Unremarkable. OSSEOUS STRUCTURES: Degenerative changes in the spine more so at L4/L5 and L5/S1. CT/CT abdomen pelvis w IV con IMPRESSION: Although decompressed there is rectal wall thickening with perirectal inflammatory change concerning for focal proctitis. This area appeared more normal on the prior 03/28/2023 examination. Colonic diverticulosis but no obvious diverticulitis. Critical Care Time Critical Care Time Critical Care Time: Yes Total Critical Care Time: 60 Attestation: I have personally provided critical care time. Time includes review of lab data, radiology results, discussion with consultants, and monitoring for potential decompensation. Intervention performed as documented. Discharge Plan Discharge Clinical Impression: Acute hyponatremia, Proctitis Patient Disposition: Admitted As Inpatient Prescriptions: No Action mesalamine 1,000 mg suppository 1 g [place] BEDTIME 30 Days Qty: 30 3RF Myrbetriq 50 mg tablet extended release 24 hr 50 mg PO DAILY Qty: 90 1RF calcium carbonate [Oyster Shell Calcium] 500 mg calcium (1,250 mg) tablet 500 mg PO BID cholecalciferol (vitamin D3) 25 mcg (1,000 unit) tablet 25 mcg PO DAILY peg 3350-electrolytes [Golytely] 236-22.74-6.74 -5.86 gram recon soln 240 ml PO Q10M 1 Days Qty: 4000 0RF Rx Instructions: until fecal effluent is clear; do not exceed a total volume of 2,000 mL dicyclomine 20 mg tablet 20 mg PO QID 30 Days Qty: 120 1RF
[2023-05-21 14:08] LABS: MANUAL DIFF FLAG NO
[2023-05-21 14:11] LABS: Basophils Absolute Auto 0.1 X10*3/uL (0.0-0.2); Basophils Percent Auto 0.6 % (0-2); Eosinophils Absolute Auto 0.3 X10*3/uL (0.0-0.4); Hematocrit 41.1 % (37.0-47.0); Hemoglobin 14.6 g/dl (12.0-16.0); Imm Gran Abs Auto 0.07 X10*3/uL (0.00-0.03); Imm Gran Pct Auto 0.7 % (0.0-0.4); Lymphocytes Absolute Auto 2.9 X10*3/uL (1.2-4.9); Lymphocytes Percent Auto 29.9 % (20-40); Mean Corpuscular HGB Conc 35.5 g/dl (31.0-35.0); Mean Corpuscular Hemoglobin 35.6 pg (27.0-33.0); Mean Corpuscular Volume 100.2 fL (80.0-98.0); Mean Platelet Volume 8.4 fL (9.4-12.3); Monocytes Absolute Auto 1.1 X10*3/uL (0.1-1.2); Monocytes Percent Auto 11.3 % (2-11); Neutrophils Absolute Auto 5.3 x10*3/uL (2.0-8.3); Neutrophils Percent Auto 54.5 % (45-73); Platelet Count 235 X10*3/uL (160-400); Red Cell Distribution Width 12.1 % (11.0-16.0); White Blood Count 9.7 X10*3/uL (4.8-10.8)
[2023-05-21 14:18] LABS: INTERNATIONAL NORM RATIO 0.9 (0.9-1.1)
[2023-05-21 14:21] LABS: Partial Thromboplastin Time 32.9 SEC (26.0-36.4)
[2023-05-21 14:27] LABS: Alanine Aminotransferase 21 U/L (0-31); Albumin Level 4.2 g/dL (3.5-5.0); Alkaline Phosphatase 86 U/L (39-117); Anion Gap 15 (12-20); Aspartate Amino Transferase 27 U/L (5-31); Bilirubin Direct 0.2 mg/dL (0.0-0.5); Bilirubin Total 0.4 mg/dL (0.0-1.0); Blood Urea Nitrogen < 3 mg/dL (9-16); Calcium 9.6 mg/dL (8.4-10.2); Carbon Dioxide 22 mmol/L (22-29); Chloride 94 mmol/L (96-108); Estimated Glomerular Filt Rate > 60; Glucose Random 82 mg/dL (60-115); Magnesium 1.7 mg/dL (1.6-2.6); Potassium 3.6 mmol/L (3.3-5.1); Sodium 127 mmol/L (135-145); Total Protein 7.7 g/dL (6.5-8.0)
[2023-05-21 16:43] VITALS: BP 150/92; PULSE 83; RESP 18; TEMP 37.1; O2SAT 97
[2023-05-21] MEDS: iohexoL 350 MG/ML 100 ML INFUS..BTL IV (17:32)
[2023-05-21] MEDS: 0.9 % Sodium Chloride 1,000 ML 100 ML IVCONT (17:45)
[2023-05-21 18:37] VITALS: O2SAT 99
[2023-05-21 19:14] VITALS: BP 134/87; PULSE 86; TEMP 37; O2SAT 95
--- NOTE | 2023-05-21 19:30 | PC.NURSE ---
md merrill at bedside aware pt c/o abd pain and had x1 bm in bathroom w moderate amt dark red blood per pt report.
--- NOTE | 2023-05-21 19:33 | PC.NURSE ---
pending admission- avtar chatterjee provider at bedside discussing pt plan of care.
--- NOTE | 2023-05-21 19:48 | PM.IMHP ---
History of Present Illness Date of Service: 05/21/23 Attending physician on admission: Bob Barros Chief Complaint: worsening llq pain, brbpr 57-year-old female with degenerative disc disease of the thoracic and lumbar spine, cervical spondylosis, lumbar radiculopathy, osteoporosis, and urge incontinence who is a current 1 pack per day smoker presented to the ED earlier today for evaluation of worsening left lower quadrant pain and bright red blood per rectum. She states that she has been experiencing left lower quadrant pain for about 5 months and has been following with Gastroenterology. She has had multiple CT scans showing colonic diverticulosis with mild mural thickening but no evidence of diverticulitis. She was then found to have Campylobacter infection treated with p.o. Levaquin for 10 days. She then underwent colonoscopy on 05/[address] Sotelo showing severe diverticulosis with mucosal Hydrea pressure via narrowing with tight angulation of the colon and a 1 cm sessile polyp was removed. Possibly a segmental colitis associated with diverticulosis syndrome. It was thought that the diverticular disease was the cause of her left lower quadrant pain. Unfortunately, left lower quadrant pain worsened 2 days ago. The pain now radiates to the left back and she is reporting severe rectal pain/pressure with fecal urgency with limited stool output. There is also been bright red blood per rectum. She is reporting small amount of constipation and occasional diarrhea. Denies any fevers or chills. Currently reports pain as an 8/10. On arrival, vital signs stable. There is no leukocytosis. No anemia. Renal function baseline, though BUN quite low at <3. Sodium 127, chloride 94, electrolytes otherwise normal. Hepatic function normal. CT abdomen/pelvis shows decompressed rectal wall that is thickened with perirectal inflammatory change concerning for focal proctitis which appeared normal on prior exam. There is also colonic diverticulosis as noted but no obvious diverticulitis. In the ED, given 1 L IV NS. The patient does endorse drinking between 3-6 beers about 3 nights per week. She smokes marijuana but denies any illicit drug use. Endorses smoking 1 pack cigarettes on a daily basis. Review of Systems Review of Systems: General: No fevers, malaise, unintentional weight loss Cardiovascular: No chest pain, palpitations, or leg edema Respiratory: No shortness of breath, wheezing, cough GI: +LLQ pain, +rectal pain, +rectal pressure, +fecal urgency, +constipation/diarrhea, +BRBPR. No nausea, vomiting, melena : No dysuria, hematuria, increased urinary frequency, decreased urinary output MSK: No myalgia, back pain Neuro: No headaches, weakness, paresthesias Skin: No rashes or lesions [facility] Medical History Pyelonephritis Nephrolithiasis Ureterolithiasis Insomnia History of hypertension Tobacco dependence Urinary incontinence Lumbar spinal stenosis Cervical spondylosis Lumbar radiculopathy Fibromyalgia Degenerative joint disease of spine Surgical History H/O colonoscopy History of facial surgery History of salpingectomy History of hip surgery History of right knee surgery Social History Household Members Other:: Patient lives by herself Housing: Apartment Alcohol intake: current Alcohol intake frequency: a few times a week Patient Tobacco Use Status: Current everyday Tobacco user Tobacco use type: Cigarette Cigarette Packs Per Day: 1 Cigarettes Per Day: 20.0 Smoked in Last 30 Days: Yes Use of substances other than those prescribed or required for medical reasons: Yes Substance Use Type: Marijuana Advance Directives: No Advance Directives Information Provided: Yes Patient : No Meds Allergies Allergy/AdvReac Type Severity Reaction Status Date / Time amoxicillin [From Augmentin] Allergy Vomiting Verified 04/30/23 11:46 clavulanic acid Allergy Vomiting Verified 04/30/23 11:46 [From Augmentin] Active Medications: Current Medications Acetaminophen (Acetaminophen 325 Mg Tablet) 650 mg PO Q6H PRN PRN Reason: Pain, Mild (Pain Scale 1-3) Docusate Sodium (Docusate Sodium 100 Mg Capsule) 100 mg PO DAILY PRN PRN Reason: Constipation Sodium Chloride (Ns) 1,000 mls @ 100 mls/hr IVCONT .Q10H ONE Stop: 05/22/23 03:01 Last Admin: 05/21/23 17:45 Dose: 100 mls/hr Levofloxacin (Levaquin) 500 mg in 100 mls @ 100 mls/hr IV ONCE ONE Stop: 05/21/23 20:30 Morphine Sulfate (Morphine Sulfate 4 Mg/Ml Cartridge) 2 mg IVPUSH Q4H PRN; Protocol PRN Reason: Pain, Severe (Pain Scale 7-10) Ondansetron HCl (Ondansetron Hcl 4 Mg/2 Ml Vial) 4 mg IVPUSH Q8H PRN PRN Reason: Nausea and Vomiting Oxycodone HCl (Oxycodone Hcl Immed Release 5 Mg Tablet) 5 mg PO Q6H PRN PRN Reason: Pain, Moderate(Pain Scale 4-6) Sodium Chloride (0.9 % Sodium Chloride Flush 3 Ml Syringe) 3 ml IVFLUSH QSHIFT [facility] Home Medications Medication Instructions Recorded Confirmed Last Taken Type calcium carbonate 500 mg calcium 500 mg PO BID 02/22/23 05/21/23 05/21/23 History (1,250 mg) tablet (Oyster Shell Calcium) cholecalciferol (vitamin D3) 25 25 mcg PO DAILY 02/22/23 05/21/23 05/21/23 History mcg (1,000 unit) tablet Physical Exam Vital Signs and Narrative: Vital Signs: Last Vital Signs Temp 98.6 F 05/21/23 19:14 Pulse 86 05/21/23 19:14 Resp 18 05/21/23 16:43 BP 134/87 05/21/23 19:14 Pulse Ox 95 05/21/23 19:14 O2 Del Method Room Air 05/21/23 19:14 BMI result Body Mass Index 19.8 Constitutional - Awake and Alert, No apparent distress Eyes - PERRLA, EOMI Cardiovascular - S1S2, RRR, No edema Respiratory - Normal lung expansion, Normal respiratory effort, No respiratory distress, CTA bilaterally Gastrointestinal - moderate LLQ ttp without guarding or rebound, ND; +BS Extremities - no calf tenderness bilaterally, no swelling Musculoskeletal - Normal inspection, normal ROM Skin - Warm/Dry Neurological - Alert & oriented x3 Psychological - Appropriate affect Results Labs 05/21/23 14:04 05/21/23 14:04 Labs: Laboratory Results - last 24 hr 05/21/23 14:04 MCV 100.2 H MCH 35.6 H MCHC 35.5 H RDW 12.1 Plt Count 235 MPV 8.4 L Immature Gran % (Auto) 0.7 H Neut % (Auto) 54.5 Lymph % (Auto) 29.9 [place] % (Auto) 11.3 H Eos % (Auto) 3.0 Baso % (Auto) 0.6 Lymph # (Auto) 2.9 [place] # (Auto) 1.1 Eos # (Auto) 0.3 Baso # (Auto) 0.1 Abs Immat Gran (auto) 0.07 H Absolute Neuts (auto) 5.3 Absolute Nucleated RBC 0.000 Nucleated RBC % (auto) 0.0 PT 11.0 L INR 0.9 APTT 32.9 Anion Gap 15 Estim Creat Clear Calc 91.0 Estimated GFR > 60 Random Glucose 82 Calcium 9.6 Magnesium 1.7 Total Bilirubin 0.4 Direct Bilirubin 0.2 AST 27 ALT 21 Alkaline Phosphatase 86 Total Protein 7.7 Albumin 4.2 Imaging Radiologist's Impressions: Impressions Abdomen/Pelvis CT 05/21/23 17:31 IMPRESSION: Although decompressed there is rectal wall thickening with perirectal inflammatory change concerning for focal proctitis. This area appeared more normal on the prior 03/28/2023 examination. Colonic diverticulosis but no obvious diverticulitis. Assessment and Plan (1) Proctitis: Status: Acute (2) Acute hyponatremia: Status: Acute Plan 57-year-old female with 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 #Acute proctitis -CT abdomen/pelvis showing decompressed rectal wall with wall thickening consistent with proctitis -No anemia or leukocytosis. VSS. Hold on empiric abx or steroids at this time -Proctofoam q.i.d. -clear liquid diet -ondansetron p.r.n. -pain management using pain scale -gastroenterology consult -continue mesalamine suppositories per GI # acute hyponatremia -etiology unclear, ?r/t etoh use -urine sodium, urine osmolality, serum osmolality ordered -Fluid restrict to 1.2 L -given 1 L IV NS in the ED -follow BMP a.m. # urge incontinence -continue Mirabegron # chronic left lower quadrant pain -recent colonoscopy showed severe diverticulosis which could be contributing to patient's pain per GI -continue dicyclomine, mesalamine suppositories # nicotine dependence -declines NRT -smoking cessation counseling offered DVT prophylaxis- SCPs Full code Time Spent With Patient Time: Total time managing care of this patient today ____ minutes. Quality Stroke Does the patient have a stroke diagnosis?: No VTE Prior VTE?: No VTE Risk Level:: Medical - moderate - high VTE Device Contraindication: N/A - Device Ordered VTE Drug Contraindication: Treatment Not Indicated
--- NOTE | 2023-05-21 19:56 | PHA.MEDREC ---
Pharmacy Consult ? Medication Reconciliation Pharmacy has completed the medication reconciliation. Patient has rx bottles including mesalamine suppositories. Belgica Tobar, PharmD
[2023-05-21 20:02] VITALS: RESP 16
[2023-05-21] MEDS: Morphine Sulfate 4 MG/ML CARTRIDGE IVPUSH (20:02)
[2023-05-21] MEDS: ondansetron HCL 4 MG/2 ML VIAL IVPUSH (20:02)
[2023-05-21] MEDS: levoFLOXacin/D5W 500 MG/100 ML PIGGYBACK 100 MG IV (20:03)
--- NOTE | 2023-05-21 20:29 | PC.NURSE ---
attempt to call report
--- NOTE | 2023-05-21 20:30 | PC.NURSE ---
no answer to rn's phone call to t for report- alan text'd pasquale todd
--- NOTE | 2023-05-21 20:49 | PC.NURSE ---
transport notified report called
[2023-05-21 21:32] LABS: Osmolality Urine 131 mosm/kg (373-1093)
[2023-05-21 21:58] VITALS: BP 126/74; PULSE 80; RESP 16; TEMP 36.4; O2SAT 93
[2023-05-21 21:59] LABS: Osmolality, Serum 271 mosm/kg (281-305)
[2023-05-21] MEDS: Dicyclomine HCl 10 MG CAPSULE 20 MG PO (22:18)
[2023-05-21] MEDS: Morphine Sulfate 4 MG/ML CARTRIDGE 2 MG IVPUSH (22:19)
[2023-05-21 23:02] LABS: OBS Int Ctl Valid YES; OBS1 NEGATIVE (NEGATIVE)
[2023-05-21] MEDS: oxyCODONE HCl Immed Release 5 MG TABLET PO (23:20)
[2023-05-21] MEDS: Melatonin 3 MG TABLET 6 MG PO (23:20)
[2023-05-22] MEDS: Morphine Sulfate 4 MG/ML CARTRIDGE 2 MG IVPUSH ×3 (02:28→15:13)
[2023-05-22] MEDS: ondansetron HCL 4 MG/2 ML VIAL IVPUSH (02:35)
[2023-05-22 03:21] VITALS: BP 120/76; PULSE 72; RESP 20; TEMP 36.3
--- NOTE | 2023-05-22 03:44 | PC.NURSE ---
Pt noted to have cory blood in loose bowel movement and apparent clotting at around 0200. No blood noted earlier when stool sample for OBS collected. Pt states she tries to go and only blood comes out. Reports the bleeding tends to happen at night after CA mesamine.
[2023-05-22 05:54] LABS: MANUAL DIFF FLAG NO
[2023-05-22 05:57] LABS: Basophils Percent Auto 0.5 % (0-2); Eosinophils Absolute Auto 0.3 X10*3/uL (0.0-0.4); Eosinophils Percent Auto 3.1 % (0-4); Hematocrit 39.4 % (37.0-47.0); Hemoglobin 13.8 g/dl (12.0-16.0); Imm Gran Abs Auto 0.03 X10*3/uL (0.00-0.03); Imm Gran Pct Auto 0.4 % (0.0-0.4); Lymphocytes Absolute Auto 1.8 X10*3/uL (1.2-4.9); Mean Corpuscular Hemoglobin 35.2 pg (27.0-33.0); Mean Corpuscular Volume 100.5 fL (80.0-98.0); Mean Platelet Volume 8.6 fL (9.4-12.3); Monocytes Percent Auto 12.5 % (2-11); Neutrophils Absolute Auto 5.1 x10*3/uL (2.0-8.3); Neutrophils Percent Auto 61.5 % (45-73); Platelet Count 227 X10*3/uL (160-400); Red Blood Count 3.92 X10*6/uL (4.20-5.50); Red Cell Distribution Width 12.3 % (11.0-16.0); White Blood Count 8.3 X10*3/uL (4.8-10.8)
[2023-05-22 06:09] LABS: Anion Gap 12 (12-20); Blood Urea Nitrogen 3 mg/dL (9-16); Calcium 9.6 mg/dL (8.4-10.2); Carbon Dioxide 26 mmol/L (22-29); Chloride 101 mmol/L (96-108); Creatinine Clr Calc Pharmacy 94.5; Estimated Glomerular Filt Rate > 60; Glucose Random 89 mg/dL (60-115); Potassium 3.7 mmol/L (3.3-5.1); Sodium 135 mmol/L (135-145)
[2023-05-22 07:30] VITALS: BP 123/71; PULSE 73; RESP 16; TEMP 36.8; O2SAT 91
--- NOTE | 2023-05-22 08:14 | HO.PM.IMPN ---
Subjective Subjective Date of Service: 05/22/23 Interval History: f/u on proctitis, still with pain, no bleeding Physical Exam Vital Signs: Vital Signs: Last Vital Signs Temp 98.2 F 05/22/23 07:30 Pulse 73 05/22/23 07:30 Resp 16 05/22/23 07:30 BP 123/71 05/22/23 07:30 Pulse Ox 91 L 05/22/23 07:30 O2 Del Method Room Air 05/22/23 07:30 BMI result Body Mass Index 19.8 Const: Other: Appearance: Alert. Oriented X3. No acute distress. Eyes: Pupils equal, round and reactive to light. ENT: Pharynx normal. Neck: Normal inspection. Neck supple. No lymph nodes noted. No crepitus CVS: Normal heart rate and rhythm. Pulses normal. Normal S1 and S2 Respiratory: No respiratory distress. Breath sounds normal. No Wheezing. No rales Abdomen: Soft , tenderness to palpation the left lower quadrant, mild rebound and guarding Skin: Skin warm and dry. Normal skin color. Normal skin turgor. Extremities: No lower extremity edema. No Lacerations. No Rash Neuro: Oriented X 3. No motor deficit. No sensory deficit. Moving all extremities. No slurred speech. CN 2 through 12 grossly intact Psych: calm, cooperative, normal affect Objective Data Active Medications Acetaminophen (Acetaminophen 325 Mg Tablet) 650 mg PO Q6H PRN PRN Reason: Pain, Mild (Pain Scale 1-3) Calcium Carbonate (Calcium Carbonate 500 Mg Tablet) 500 mg PO BID [facility] Last Admin: 05/21/23 22:19 Dose: 500 mg Documented By: JOHN Dicyclomine HCl (Dicyclomine Hcl 10 Mg Capsule) 20 mg PO QID [facility] Last Admin: 05/21/23 22:18 Dose: 20 mg Documented By: JOHN Docusate Sodium (Docusate Sodium 100 Mg Capsule) 100 mg PO DAILY PRN PRN Reason: Constipation Melatonin (Melatonin 3 Mg Tablet) 6 mg PO BEDTIME PRN PRN Reason: Insomnia Last Admin: 05/21/23 23:20 Dose: 6 mg Documented By: JOHN Mirabegron (Mirabegron 50 Mg Tab.Er.24h) 50 mg PO DAILY [facility] Morphine Sulfate (Morphine Sulfate 4 Mg/Ml Cartridge) 2 mg IVPUSH Q4H PRN; Protocol PRN Reason: Pain, Severe (Pain Scale 7-10) Last Admin: 05/22/23 02:28 Dose: 2 mg Documented By: JOHN Pt Own (Mesalamine 1 (,000 Mg Suppository)) 1 gm DC BEDTIME [facility] Last Admin: 05/21/23 22:18 Dose: 1 gm Documented By: JOHN Ondansetron HCl (Ondansetron Hcl 4 Mg/2 Ml Vial) 4 mg IVPUSH Q8H PRN PRN Reason: Nausea and Vomiting Last Admin: 05/22/23 02:35 Dose: 4 mg Documented By: JOHN Oxycodone HCl (Oxycodone Hcl Immed Release 5 Mg Tablet) 5 mg PO Q6H PRN PRN Reason: Pain, Moderate(Pain Scale 4-6) Last Admin: 05/21/23 23:20 Dose: 5 mg Documented By: JOHN Sodium Chloride (0.9 % Sodium Chloride Flush 3 Ml Syringe) 3 ml IVFLUSH QSHIFT [facility] Last Admin: 05/21/23 23:04 Dose: Not Given Documented By: JOHN Non-Admin Reason: Previously Administered Vitamin D (Cholecalciferol (Vitamin D3) 25 Mcg Tablet) 25 mcg PO DAILY [facility] Labs 05/22/23 05:35 05/22/23 05:35 Labs: Laboratory Results - last 24 hr 05/21/23 05/21/23 05/21/23 14:04 21:15 21:19 MCV 100.2 H MCH 35.6 H MCHC 35.5 H RDW 12.1 Plt Count 235 MPV 8.4 L Immature Gran % (Auto) 0.7 H Neut % (Auto) 54.5 Lymph % (Auto) 29.9 [place] % (Auto) 11.3 H Eos % (Auto) 3.0 Baso % (Auto) 0.6 Lymph # (Auto) 2.9 [place] # (Auto) 1.1 Eos # (Auto) 0.3 Baso # (Auto) 0.1 Abs Immat Gran (auto) 0.07 H Absolute Neuts (auto) 5.3 Absolute Nucleated RBC 0.000 Nucleated RBC % (auto) 0.0 PT 11.0 L INR 0.9 APTT 32.9 Anion Gap 15 Estim Creat Clear Calc 91.0 Estimated GFR > 60 Random Glucose 82 Osmolality 271 L Calcium 9.6 Magnesium 1.7 Total Bilirubin 0.4 Direct Bilirubin 0.2 AST 27 ALT 21 Alkaline Phosphatase 86 Total Protein 7.7 Albumin 4.2 Urine Osmolality 131 L Ur Random Sodium 24.0 Stool Occult Blood 05/21/23 05/22/23 22:00 05:35 MCV 100.5 H MCH 35.2 H MCHC 35.0 RDW 12.3 Plt Count 227 MPV 8.6 L Immature Gran % (Auto) 0.4 Neut % (Auto) 61.5 Lymph % (Auto) 22.0 [place] % (Auto) 12.5 H Eos % (Auto) 3.1 Baso % (Auto) 0.5 Lymph # (Auto) 1.8 [place] # (Auto) 1.0 Eos # (Auto) 0.3 Baso # (Auto) 0.0 Abs Immat Gran (auto) 0.03 Absolute Neuts (auto) 5.1 Absolute Nucleated RBC 0.000 Nucleated RBC % (auto) 0.0 PT INR APTT Anion Gap 12 Estim Creat Clear Calc 94.5 Estimated GFR > 60 Random Glucose 89 Osmolality Calcium 9.6 Magnesium Total Bilirubin Direct Bilirubin AST ALT Alkaline Phosphatase Total Protein Albumin Urine Osmolality Ur Random Sodium Stool Occult Blood NEGATIVE Assessment and Plan (1) Proctitis: Status: Acute Plan 57-year-old female with 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 #Acute proctitis as seen on CT, proctofoam qid, mesalamine suppositories, gi consult, hold Abx or steroid at this time # acute hyponatremia -etiology unclear, ?r/t etoh use.. Resolved. # urge incontinence -continue Mirabegron # chronic left lower quadrant pain -recent colonoscopy showed severe diverticulosis which could be contributing to patient's pain per GI -continue dicyclomine, mesalamine suppositories # nicotine dependence -declines NRT -smoking cessation counseling offered DVT prophylaxis- SCPs Full code Time Spent With Patient Time: Total time managing care of this patient today ____ minutes. Quality Stroke Does the patient have a stroke diagnosis?: No VTE Prior VTE?: No VTE Risk Level:: Medical - moderate - high VTE Device Contraindication: N/A - Device Ordered VTE Drug Contraindication: Treatment Not Indicated
[2023-05-22] MEDS: Mirabegron 50 MG TAB.ER.24H PO (08:37)
[2023-05-22] MEDS: Dicyclomine HCl 10 MG CAPSULE 20 MG PO ×4 (08:37→20:03)
[2023-05-22] MEDS: Cholecalciferol (Vitamin D3) 25 MCG TABLET PO (08:37)
[2023-05-22] MEDS: 0.9 % Sodium Chloride Flush 3 ML SYRINGE IVFLUSH ×2 (08:38→15:31)
[2023-05-22] MEDS: oxyCODONE HCl Immed Release 5 MG TABLET PO (10:58)
--- NOTE | 2023-05-22 11:59 | MHC.CM.PN ---
FADIA 05/22/23 DX Proctitis She lives with family. She is independent with all functional mobility. A HCP has been documented and scanned into EMR. DP home self care. She will arrange for transportation home.
[2023-05-22 16:00] VITALS: BP 140/79; PULSE 66; RESP 18; TEMP 37; O2SAT 96
--- NOTE | 2023-05-22 16:29 | PM.GICN ---
History of Present Illness Data of Consult Service Date: 05/22/23 [facility] Primary Care Provider: Paresh Strong MD [facility] Reason for consult: Rectal bleeding This is a 57-year-old female with past medical history of chronic lower abdominal pain, diverticular disease, history of nephrolithiasis and pyelonephritis, her myalgia, who presented to the hospital for rectal bleeding. Patient had a colonoscopy on 05/01 for left lower quadrant pain and was noted to have severe diverticulosis of sigmoid colon. Rectosigmoid junction was noted to have marked narrowing and mucosal hypertrophy with erythema but no masses. Biopsies were benign. 10 mm sigmoid polyp was tubular adenoma. Two days ago, she started developing left lower quadrant discomfort again, however this time associated with multiple episodes of loose watery bowel movements which are all maroon to red. When this lasted through the weekend, she presented to the ER. In the ER, was noted to have stable blood counts and vitals. Imaging was significant for rectal wall thickening along with perirectal inflammatory changes. At the time of evaluation, reports persistent episodes bloody diarrhea. Associated with rectal burning and discomfort as well. Patient reports no history of prior episodes. No preceding hx of constipation or fecal impaction. No report of anal receptive intercourse or trauma. Review of Systems Review of Systems: Yes all other systems are reviewed and are negative PMFSH Past Medical History Medical History Pyelonephritis Nephrolithiasis Ureterolithiasis Insomnia History of hypertension Tobacco dependence Urinary incontinence Lumbar spinal stenosis Cervical spondylosis Lumbar radiculopathy Fibromyalgia Degenerative joint disease of spine Surgical History Surgical History H/O colonoscopy History of facial surgery History of salpingectomy History of hip surgery History of right knee surgery Social History Social History Household Members: None Household Members Other:: Patient lives by herself Housing: House Do you presently have visiting nurse or other home services: No Alcohol intake: current Alcohol intake frequency: a few times a week Patient Tobacco Use Status: Current everyday Tobacco user Tobacco use type: Cigarette Cigarette Packs Per Day: 1 Cigarettes Per Day: 20.0 Smoked in Last 30 Days: Yes Use of substances other than those prescribed or required for medical reasons: Yes Substance Use Type: Marijuana Substance Use Frequency: Daily Last Used Substance: Days (ago) Currently Displaying Signs/Symptoms of Drug Intoxication Withdrawal: No Any prior treatment program specific to substance use: No Have you been hit, kicked, punched, or otherwise hurt by someone within the past year? If so, by whom?: No Do you feel safe in your current relationship?: No Current Relationship Is there a partner from a previous relationship who is making you feel unsafe now?: No Are you made to feel afraid or neglected: No [employer] Healthcare Practices: n/a Advance Directives: No Advance Directives Information Provided: Yes Do you have thoughts of harming others: None Do you have a plan to hurt others: No Plan Recently lost weight without trying: Yes How much weight loss: 2-13 pounds Eating poorly because of decreased appetite: Yes Nutrition screen score: 4 Patient : No : No Poor oral hygiene: No service: No Meds Allergies Allergy/AdvReac Type Severity Reaction Status Date / Time amoxicillin [From Augmentin] Allergy Vomiting Verified 04/30/23 11:46 clavulanic acid Allergy Vomiting Verified 04/30/23 11:46 [From Augmentin] Active Medications: Current Medications Acetaminophen (Acetaminophen 325 Mg Tablet) 650 mg PO Q6H PRN PRN Reason: Pain, Mild (Pain Scale 1-3) Calcium Carbonate (Calcium Carbonate 500 Mg Tablet) 500 mg PO BID [facility] Last Admin: 05/22/23 08:37 Dose: 500 mg Dicyclomine HCl (Dicyclomine Hcl 10 Mg Capsule) 20 mg PO QID [facility] Last Admin: 05/22/23 12:32 Dose: 20 mg Docusate Sodium (Docusate Sodium 100 Mg Capsule) 100 mg PO DAILY PRN PRN Reason: Constipation Melatonin (Melatonin 3 Mg Tablet) 6 mg PO BEDTIME PRN PRN Reason: Insomnia Last Admin: 05/21/23 23:20 Dose: 6 mg Mirabegron (Mirabegron 50 Mg Tab.Er.24h) 50 mg PO DAILY [facility] Last Admin: 05/22/23 08:37 Dose: 50 mg Morphine Sulfate (Morphine Sulfate 4 Mg/Ml Cartridge) 2 mg IVPUSH Q4H PRN; Protocol PRN Reason: Pain, Severe (Pain Scale 7-10) Last Admin: 05/22/23 15:13 Dose: 2 mg Pt Own (Mesalamine 1 (,000 Mg Suppository)) 1 gm NM BEDTIME [facility] Last Admin: 05/21/23 22:18 Dose: 1 gm Ondansetron HCl (Ondansetron Hcl 4 Mg/2 Ml Vial) 4 mg IVPUSH Q8H PRN PRN Reason: Nausea and Vomiting Last Admin: 05/22/23 02:35 Dose: 4 mg Oxycodone HCl (Oxycodone Hcl Immed Release 5 Mg Tablet) 5 mg PO Q6H PRN PRN Reason: Pain, Moderate(Pain Scale 4-6) Last Admin: 05/22/23 10:58 Dose: 5 mg Sodium Chloride (0.9 % Sodium Chloride Flush 3 Ml Syringe) 3 ml IVFLUSH QSHIFT [facility] Last Admin: 05/22/23 15:31 Dose: 3 ml Vitamin D (Cholecalciferol (Vitamin D3) 25 Mcg Tablet) 25 mcg PO DAILY [facility] Last Admin: 05/22/23 08:37 Dose: 25 mcg Home Medications Medication Instructions Recorded Confirmed Last Taken Type calcium carbonate 500 mg calcium 500 mg PO BID 02/22/23 05/21/23 05/21/23 History (1,250 mg) tablet (Oyster Shell Calcium) cholecalciferol (vitamin D3) 25 25 mcg PO DAILY 02/22/23 05/21/23 05/21/23 History mcg (1,000 unit) tablet Physical Exam Vital Signs: Vital Signs: Last Vital Signs Temp 98.6 F 05/22/23 16:00 Pulse 66 05/22/23 16:00 Resp 18 05/22/23 16:00 BP 140/79 H 05/22/23 16:00 Pulse Ox 96 05/22/23 16:00 O2 Del Method Room Air 05/22/23 16:00 BMI result Body Mass Index 19.8 Gen appear: NAD HEENT: nonicteric, no cervical lymphadenopathy Chest: CTA CVS: Regular S1/S2 Abd: soft, tender in suprapubic region and LLQ, nondistended, bowel sounds + Ext: no peripheral edema Neuro: A/Ox3, noted to move all extremities spontaneously Psych: interacting appropriately Results Labs 05/22/23 05:35 05/22/23 05:35 Labs: Short CBC 05/22/23 Range/Units 05:35 WBC 8.3 (4.8-10.8) X10*3/uL Hgb 13.8 (12.0-16.0) g/dl Hct 39.4 (37.0-47.0) % Plt Count 227 (160-400) X10*3/uL [facility] 05/22/23 05:35 Sodium 135 Potassium 3.7 Chloride 101 Carbon Dioxide 26 BUN 3 L Creatinine 0.52 Calcium 9.6 Assessment and Plan (1) Bright red rectal bleeding: Status: Acute (2) Proctitis: Status: Acute Plan Bleeding is minimal and not associated with any hemodynamic compromise. Rectal wall thickening noted on CT scan likely corresponds to the findings noted on recent colonoscopy as well. However, at that time, no spontaneous bleeding was noted and the biopsies are normal. Differentials include infectious proctitis, solitary rectal ulcer syndrome, stercoral proctitis. Will proceed with diagnostic flexible sigmoidoscopy for further evaluation and management. Recommendations: - CLD today, NPO after MN - x2 enema to be given before procedure tmrw - Check GI panel (recent hx of campylobacter infection) Thank you for allowing me to participate in her care. Please not hesitate to reach out for any questions or concerns. Time Spent With Patient Time: Total time managing care of this patient today ____ minutes. Procedures Date of Service Date of Service: 05/22/23
[2023-05-22 20:00] VITALS: BP 130/62; PULSE 70; RESP 18; TEMP 36.1; O2SAT 97
[2023-05-22] MEDS: Morphine Sulfate 2 MG/ML CARTRIDGE IVPUSH (20:47)
[2023-05-22] MEDS: Nicotine 14 MG PATCH.TD24 TRANSDERMA (21:38)
[2023-05-23] VITALS (9 sets, daily range): BP systolic 99–163; BP diastolic 60–93; PULSE 70–85; RESP 16–20; TEMP 36.3–37.1; O2SAT 95–97
[2023-05-23] MEDS: Morphine Sulfate 2 MG/ML CARTRIDGE IVPUSH ×4 (03:21→20:45)
[2023-05-23] MEDS: 0.9 % Sodium Chloride Flush 3 ML SYRINGE IVFLUSH ×2 (08:28→20:36)
[2023-05-23] MEDS: Dicyclomine HCl 10 MG CAPSULE 20 MG PO ×3 (08:31→20:33)
[2023-05-23] MEDS: Mirabegron 50 MG TAB.ER.24H PO (08:31)
--- NOTE | 2023-05-23 08:48 | HO.PM.IMPN ---
Subjective Subjective Date of Service: 05/23/23 Interval History: Persistent diarrhea, and abdominal time Physical Exam Vital Signs: Vital Signs: Last Vital Signs Temp 98.7 F 05/23/23 07:44 Pulse 72 05/23/23 07:44 Resp 18 05/23/23 07:44 BP 143/87 H 05/23/23 07:44 Pulse Ox 95 05/23/23 07:44 O2 Del Method Room Air 05/23/23 07:44 BMI result Body Mass Index 19.8 Const: Other: Appearance: Alert. Oriented X3. No acute distress. CVS: Normal heart rate and rhythm. Pulses normal. Normal S1 and S2 Respiratory: No respiratory distress. Breath sounds normal. No Wheezing. No rales Abdomen: Soft , tenderness to palpation the left lower quadrant, mild rebound and guarding Skin: Skin warm and dry. Normal skin color. Normal skin turgor. Extremities: No lower extremity edema. No Lacerations. No Rash Neuro: Oriented X 3. No motor deficit. No sensory deficit. Moving all extremities. No slurred speech. CN 2 through 12 grossly intact Psych: calm, cooperative, normal affect Objective Data Active Medications Acetaminophen (Acetaminophen 325 Mg Tablet) 650 mg PO Q6H PRN PRN Reason: Pain, Mild (Pain Scale 1-3) Calcium Carbonate (Calcium Carbonate 500 Mg Tablet) 500 mg PO BID [facility] Last Admin: 05/22/23 20:03 Dose: 500 mg Documented By: JOHN Dicyclomine HCl (Dicyclomine Hcl 10 Mg Capsule) 20 mg PO QID [facility] Last Admin: 05/23/23 08:31 Dose: 20 mg Documented By: STEVE Docusate Sodium (Docusate Sodium 100 Mg Capsule) 100 mg PO DAILY PRN PRN Reason: Constipation Melatonin (Melatonin 3 Mg Tablet) 6 mg PO BEDTIME PRN PRN Reason: Insomnia Last Admin: 05/21/23 23:20 Dose: 6 mg Documented By: JOHN Mirabegron (Mirabegron 50 Mg Tab.Er.24h) 50 mg PO DAILY [facility] Last Admin: 05/23/23 08:31 Dose: 50 mg Documented By: STEVE Morphine Sulfate (Morphine Sulfate 2 Mg/Ml Cartridge) 2 mg IVPUSH Q4H PRN; Protocol PRN Reason: Pain, Severe (Pain Scale 7-10) Last Admin: 05/23/23 08:28 Dose: 2 mg Documented By: STEVE Nicotine (Nicotine 14 Mg Patch.Td24) 14 mg TRANSDERMA DAILY [facility] Last Admin: 05/22/23 21:38 Dose: 14 mg Documented By: JOHN Pt Own (Mesalamine 1 (,000 Mg Suppository)) 1 gm CA BEDTIME [facility] Last Admin: 05/22/23 20:03 Dose: 1 gm Documented By: JOHN Ondansetron HCl (Ondansetron Hcl 4 Mg/2 Ml Vial) 4 mg IVPUSH Q8H PRN PRN Reason: Nausea and Vomiting Last Admin: 05/22/23 02:35 Dose: 4 mg Documented By: JOHN Oxycodone HCl (Oxycodone Hcl Immed Release 5 Mg Tablet) 5 mg PO Q6H PRN PRN Reason: Pain, Moderate(Pain Scale 4-6) Last Admin: 05/22/23 10:58 Dose: 5 mg Documented By: AMBROSE Sodium Biphosphate/Sodium Phosphate (Sodium Phosphate,Craig-Dibasic 133 Ml Enema) 266 ml CA ONCE ONE Stop: 05/23/23 12:01 Sodium Chloride (0.9 % Sodium Chloride Flush 3 Ml Syringe) 3 ml IVFLUSH QSHIFT [facility] Last Admin: 05/23/23 08:28 Dose: 3 ml Documented By: STEVE Vitamin D (Cholecalciferol (Vitamin D3) 25 Mcg Tablet) 25 mcg PO DAILY [facility] Last Admin: 05/22/23 08:37 Dose: 25 mcg Documented By: AMBROSE Labs 05/22/23 05:35 05/22/23 05:35 Assessment and Plan (1) Proctitis: Status: Acute Plan 57-year-old female with 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 #Acute proctitis as seen on CT, proctofoam qid, mesalamine suppositories, gi consult, hold Abx or steroid at this time. Flex sig today # acute hyponatremia -etiology unclear, ?r/t etoh use.. Resolved. # urge incontinence -continue Mirabegron # chronic left lower quadrant pain -recent colonoscopy showed severe diverticulosis which could be contributing to patient's pain per GI -continue dicyclomine, mesalamine suppositories # nicotine dependence -declines NRT -smoking cessation counseling offered DVT prophylaxis- SCPs Full code Time Spent With Patient Time: Total time managing care of this patient today ____ minutes. Quality Stroke Does the patient have a stroke diagnosis?: No VTE Prior VTE?: No VTE Risk Level:: Medical - moderate - high VTE Device Contraindication: N/A - Device Ordered VTE Drug Contraindication: Treatment Not Indicated
--- NOTE | 2023-05-23 09:34 | PC.NURSE ---
report called to SS Blanca Flores . Pt scheduled ETA for procedure 1330.
[2023-05-23] MEDS: Sodium Phosphate,Mono-Dibasic 133 ML ENEMA 266 ML PR (12:05)
--- NOTE | 2023-05-23 12:42 | PC.NURSE ---
second Fleets enema given
--- NOTE | 2023-05-23 12:47 | HO.ANESPROP2 ---
Documented by User: Nicolle Burden MD 05/23/23 16:34 [facility] Past Medical History Medical History Pyelonephritis Nephrolithiasis Ureterolithiasis Insomnia History of hypertension Tobacco dependence Urinary incontinence Lumbar spinal stenosis Cervical spondylosis Lumbar radiculopathy Fibromyalgia Degenerative joint disease of spine Surgical History Surgical History H/O colonoscopy History of facial surgery History of salpingectomy History of hip surgery History of right knee surgery Social History Social History Household Members: None Household Members Other:: Patient lives by herself Housing: House Do you presently have visiting nurse or other home services: No Alcohol intake: current Alcohol intake frequency: a few times a week Patient Tobacco Use Status: Current everyday Tobacco user Tobacco use type: Cigarette Cigarette Packs Per Day: 1 Cigarettes Per Day: 20.0 Years Smoked: 30 Smoked in Last 30 Days: Yes Use of substances other than those prescribed or required for medical reasons: Yes Substance Use Type: Marijuana Substance Use Frequency: Occasionally Last Used Substance: Days (ago) Currently Displaying Signs/Symptoms of Drug Intoxication Withdrawal: No Any prior treatment program specific to substance use: No Have you been hit, kicked, punched, or otherwise hurt by someone within the past year? If so, by whom?: No Do you feel safe in your current relationship?: No Current Relationship Is there a partner from a previous relationship who is making you feel unsafe now?: No Are you made to feel afraid or neglected: No [employer]ze Healthcare Practices: n/a Are you DNR?: No Advance Directives: No Advance Directives Information Provided: Yes Do you have thoughts of harming others: None Do you have a plan to hurt others: No Plan Recently lost weight without trying: Yes How much weight loss: 2-13 pounds Eating poorly because of decreased appetite: Yes Nutrition screen score: 4 Patient : No : No Poor oral hygiene: No service: No Meds Allergies Allergy/AdvReac Type Severity Reaction Status Date / Time amoxicillin [From Augmentin] Allergy Intermediate Vomiting Verified 05/23/23 13:44 clavulanic acid Allergy Intermediate Vomiting Verified 05/23/23 13:44 [From Augmentin] Home Medications Medication Instructions Recorded Confirmed Last Taken Type calcium carbonate 500 mg calcium 500 mg PO BID 02/22/23 05/21/23 05/21/23 History (1,250 mg) tablet (Oyster Shell Calcium) cholecalciferol (vitamin D3) 25 25 mcg PO DAILY 02/22/23 05/21/23 05/21/23 History mcg (1,000 unit) tablet Exam Airway Mallampati Class: II TM Dist: >3cm Neck ROM: Full Loose/Missing/Broken Teeth: No Heart: RRR Lungs: CTA Assessment and Plan Assessment Anesthesia Assessment: Anesthesia Plan Discussed and Chart Reviewed Final Anesthetic Review NPO: Yes ASA Class: II Final Preanesthetic Review: Meds/Allgs Chart Reviewed, Consent Obtained/Reviewed and Anes Risks/Benef Reviewed Patient Risk: Low Procedure Risk: Low Anesthetic Plan Anesthetic Plan: MAC: Disposition: Standard PACU Documented by User: Elena Fry MD [facility] Active Problems Active Problems: All Active Problems (Updated 05/22/23 @ 16:37 by Daniela Méndez MD) Bright red rectal bleeding (Acute) Proctitis (Acute) Acute hyponatremia (Acute) Pre-op examination (Acute) History of colon polyps (Acute) Back pain (Acute) Diverticulitis (Acute) Left sided abdominal pain (Acute) High cholesterol (Acute) Hypertension (Acute) Sensation of pressure in bladder area (Acute) Urinary urgency (Acute) Stress incontinence (Acute) Microhematuria (Acute) Past Medical History Medical History Pyelonephritis Nephrolithiasis Ureterolithiasis Insomnia History of hypertension Tobacco dependence Urinary incontinence Lumbar spinal stenosis Cervical spondylosis Lumbar radiculopathy Fibromyalgia Degenerative joint disease of spine Family History Family history of problems with anesthesia: No Surgical History Surgical History H/O colonoscopy History of facial surgery History of salpingectomy History of hip surgery History of right knee surgery History of Problems with Anesthesia: No Social History Social History Household Members: None Household Members Other:: Patient lives by herself Housing: House Do you presently have visiting nurse or other home services: No Alcohol intake: current Alcohol intake frequency: a few times a week Patient Tobacco Use Status: Current everyday Tobacco user Tobacco use type: Cigarette Cigarette Packs Per Day: 1 Cigarettes Per Day: 20.0 Years Smoked: 30 Smoked in Last 30 Days: Yes Use of substances other than those prescribed or required for medical reasons: Yes Substance Use Type: Marijuana Substance Use Frequency: Occasionally Last Used Substance: Days (ago) Currently Displaying Signs/Symptoms of Drug Intoxication Withdrawal: No Any prior treatment program specific to substance use: No Have you been hit, kicked, punched, or otherwise hurt by someone within the past year? If so, by whom?: No Do you feel safe in your current relationship?: No Current Relationship Is there a partner from a previous relationship who is making you feel unsafe now?: No Are you made to feel afraid or neglected: No [employer]ze Healthcare Practices: n/a Are you DNR?: No Advance Directives: No Advance Directives Information Provided: Yes Do you have thoughts of harming others: None Do you have a plan to hurt others: No Plan Recently lost weight without trying: Yes How much weight loss: 2-13 pounds Eating poorly because of decreased appetite: Yes Nutrition screen score: 4 Patient : No : No Poor oral hygiene: No service: No Meds Allergies Allergy/AdvReac Type Severity Reaction Status Date / Time amoxicillin [From Augmentin] Allergy Intermediate Vomiting Verified 05/23/23 13:44 clavulanic acid Allergy Intermediate Vomiting Verified 05/23/23 13:44 [From Augmentin] Active Medications: Current Medications Acetaminophen (Acetaminophen 325 Mg Tablet) 650 mg PO Q6H PRN PRN Reason: Pain, Mild (Pain Scale 1-3) Calcium Carbonate (Calcium Carbonate 500 Mg Tablet) 500 mg PO BID [facility] Last Admin: 05/22/23 20:03 Dose: 500 mg Dicyclomine HCl (Dicyclomine Hcl 10 Mg Capsule) 20 mg PO QID [facility] Last Admin: 05/23/23 08:31 Dose: 20 mg Docusate Sodium (Docusate Sodium 100 Mg Capsule) 100 mg PO DAILY PRN PRN Reason: Constipation Melatonin (Melatonin 3 Mg Tablet) 6 mg PO BEDTIME PRN PRN Reason: Insomnia Last Admin: 05/21/23 23:20 Dose: 6 mg Mirabegron (Mirabegron 50 Mg Tab.Er.24h) 50 mg PO DAILY [facility] Last Admin: 05/23/23 08:31 Dose: 50 mg Morphine Sulfate (Morphine Sulfate 2 Mg/Ml Cartridge) 2 mg IVPUSH Q4H PRN; Protocol PRN Reason: Pain, Severe (Pain Scale 7-10) Last Admin: 05/23/23 08:28 Dose: 2 mg Nicotine (Nicotine 14 Mg Patch.Td24) 14 mg TRANSDERMA DAILY [facility] Last Admin: 05/22/23 21:38 Dose: 14 mg Pt Own (Mesalamine 1 (,000 Mg Suppository)) 1 gm MD BEDTIME [facility] Last Admin: 05/22/23 20:03 Dose: 1 gm Ondansetron HCl (Ondansetron Hcl 4 Mg/2 Ml Vial) 4 mg IVPUSH Q8H PRN PRN Reason: Nausea and Vomiting Last Admin: 05/22/23 02:35 Dose: 4 mg Oxycodone HCl (Oxycodone Hcl Immed Release 5 Mg Tablet) 5 mg PO Q6H PRN PRN Reason: Pain, Moderate(Pain Scale 4-6) Last Admin: 05/22/23 10:58 Dose: 5 mg Sodium Chloride (0.9 % Sodium Chloride Flush 3 Ml Syringe) 3 ml IVFLUSH QSHIFT [facility] Last Admin: 05/23/23 08:28 Dose: 3 ml Vitamin D (Cholecalciferol (Vitamin D3) 25 Mcg Tablet) 25 mcg PO DAILY [facility] Last Admin: 05/22/23 08:37 Dose: 25 mcg Home Medications Medication Instructions Recorded Confirmed Last Taken Type calcium carbonate 500 mg calcium 500 mg PO BID 02/22/23 05/21/23 05/21/23 History (1,250 mg) tablet (Oyster Shell Calcium) cholecalciferol (vitamin D3) 25 25 mcg PO DAILY 02/22/23 05/21/23 05/21/23 History mcg (1,000 unit) tablet Exam Exam Date and Time: May 23, 2023 124 Height,Weight and Vital Signs: Height 5 ft 3 in Weight 50.802 kg Last Vital Signs Temp 98.7 F 05/23/23 07:44 Pulse 72 05/23/23 07:44 Resp 18 05/23/23 07:44 BP 143/87 H 05/23/23 07:44 Pulse Ox 95 05/23/23 07:44 O2 Del Method Room Air 05/23/23 07:44 Pertinent Lab Results Pertinent Lab Results: Laboratory Tests 05/21/23 05/21/23 05/21/23 14:04 21:15 21:19 WBC 9.7 RBC 4.10 L Hgb 14.6 Hct 41.1 MCV 100.2 H MCH 35.6 H MCHC 35.5 H RDW 12.1 Plt Count 235 MPV 8.4 L Immature Gran % (Auto) 0.7 H Neut % (Auto) 54.5 Lymph % (Auto) 29.9 [place] % (Auto) 11.3 H Eos % (Auto) 3.0 Baso % (Auto) 0.6 Lymph # (Auto) 2.9 [place] # (Auto) 1.1 Eos # (Auto) 0.3 Baso # (Auto) 0.1 Abs Immat Gran (auto) 0.07 H Absolute Neuts (auto) 5.3 Absolute Nucleated RBC 0.000 Nucleated RBC % (auto) 0.0 PT 11.0 L INR 0.9 APTT 32.9 Sodium 127 L Potassium 3.6 Chloride 94 L Carbon Dioxide 22 Anion Gap 15 BUN < 3 L Creatinine 0.54 Estim Creat Clear Calc 91.0 Estimated GFR > 60 Random Glucose 82 Osmolality 271 L Calcium 9.6 Magnesium 1.7 Total Bilirubin 0.4 Direct Bilirubin 0.2 AST 27 ALT 21 Alkaline Phosphatase 86 Total Protein 7.7 Albumin 4.2 Urine Osmolality 131 L Ur Random Sodium 24.0 Stool Occult Blood 05/21/23 05/22/23 22:00 05:35 WBC 8.3 RBC 3.92 L Hgb 13.8 Hct 39.4 MCV 100.5 H MCH 35.2 H MCHC 35.0 RDW 12.3 Plt Count 227 MPV 8.6 L Immature Gran % (Auto) 0.4 Neut % (Auto) 61.5 Lymph % (Auto) 22.0 [place] % (Auto) 12.5 H Eos % (Auto) 3.1 Baso % (Auto) 0.5 Lymph # (Auto) 1.8 [place] # (Auto) 1.0 Eos # (Auto) 0.3 Baso # (Auto) 0.0 Abs Immat Gran (auto) 0.03 Absolute Neuts (auto) 5.1 Absolute Nucleated RBC 0.000 Nucleated RBC % (auto) 0.0 PT INR APTT Sodium 135 Potassium 3.7 Chloride 101 Carbon Dioxide 26 Anion Gap 12 BUN 3 L Creatinine 0.52 Estim Creat Clear Calc 94.5 Estimated GFR > 60 Random Glucose 89 Osmolality Calcium 9.6 Magnesium Total Bilirubin Direct Bilirubin AST ALT Alkaline Phosphatase Total Protein Albumin Urine Osmolality Ur Random Sodium Stool Occult Blood NEGATIVE Assessment and Plan Final Anesthetic Review Family History of Problems with Anesthesia: No History of Problems with Anesthesia: No
--- NOTE | 2023-05-23 13:39 | PC.NURSE ---
Pt transported to unit
--- NOTE | 2023-05-23 16:38 | P.OP_ITS ---
Operative Note Operative Note Date of Service: 05/23/23 Narrative: Procedure: Flexible sigmoidoscopy Indication: Rectal bleeding Endoscopist: Daniela Méndez MD Anesthesia Provider: Dr Nicolle Burden Anesthesia type: MAC Instrument: Olympus [id number] Consent: Indication, risks vs benefits, and alternatives were discussed with the patient who gave written informed consent to proceed. EKG, pulse, pulse oximetry and blood pressure were monitored throughout the procedure. Please see anesthesia flowsheet. Procedure: The patient was brought to the procedure room and placed in the left lateral decubitus position. IV medications were administered by the anesthesia provider in attendance. A digital rectal exam was performed which was normal The gastroscope was then inserted through the anus and advanced through the colon to sigmoid colon till 40 cm. Mucosa was carefully examined under high definition white light as the instrument was slowly withdrawn in a retrograde panoramic fashion. Retroflexion was performed in rectum. The procedure was not difficult. There were no immediate obvious complications. Limitations: No limitations. Findings: Mucosa: Erythema and cobblestoning was noted in the rectum till 16 cm. The mucosa was then normal till distal sigmoid colon (albeit the lumen was narrowed). Cold forceps biopsies were taken to r/o ulcerative proctitis. Protruding lesions: * Medium internal hemorrhoids without stigmata of recent bleeding. Excavated lesions: * Severe diverticulosis of sigmoid colon. Impression: 1. Abnormal rectal mucosa 2. Diverticulosis 3. Internal hemorrhoids Recommendations: - Follow path results. - If bx confirm ulcerative proctitis will recommend topical mesalamine vs hydrocort enema.
--- NOTE | 2023-05-23 18:10 | PC.NURSE ---
pt returned from sp sigmoidoscopy tolerated well . Okay to have regular diet per Dr Silva
[2023-05-23] MEDS: oxyCODONE HCl Immed Release 5 MG TABLET PO (20:33)
[2023-05-24 03:43] VITALS: BP 130/85; PULSE 83; RESP 18; TEMP 36; O2SAT 96
[2023-05-24] MEDS: Morphine Sulfate 2 MG/ML CARTRIDGE IVPUSH ×4 (04:39→19:40)
[2023-05-24 07:41] VITALS: BP 128/76; PULSE 74; RESP 17; TEMP 36.2; O2SAT 95
[2023-05-24] MEDS: oxyCODONE HCl Immed Release 5 MG TABLET PO ×2 (08:10→19:35)
[2023-05-24] MEDS: Dicyclomine HCl 10 MG CAPSULE 20 MG PO ×3 (08:10→19:36)
[2023-05-24] MEDS: Cholecalciferol (Vitamin D3) 25 MCG TABLET PO (08:10)
[2023-05-24] MEDS: Mirabegron 50 MG TAB.ER.24H PO (08:10)
[2023-05-24] MEDS: 0.9 % Sodium Chloride Flush 3 ML SYRINGE IVFLUSH ×3 (08:11→19:40)
[2023-05-24] MEDS: Nicotine 14 MG PATCH.TD24 TRANSDERMA (08:11)
--- NOTE | 2023-05-24 08:45 | P.PNIM_ITS ---
Subjective Subjective Date of Service: 05/24/23 Interval History: still c/o abdominal pain, but this has been ongoing for at least 6 months Physical Exam 2 Vital Signs: Vital Signs: Last Vital Signs Temp 97.1 F 05/24/23 07:41 Pulse 74 05/24/23 07:41 Resp 17 05/24/23 07:41 BP 128/76 05/24/23 07:41 Pulse Ox 95 05/24/23 07:41 O2 Del Method Room Air 05/24/23 07:41 BMI result Body Mass Index 19.8 Objective Data Active Medications Acetaminophen (Acetaminophen 325 Mg Tablet) 650 mg PO Q6H PRN PRN Reason: Pain, Mild (Pain Scale 1-3) Calcium Carbonate (Calcium Carbonate 500 Mg Tablet) 500 mg PO BID [facility] Last Admin: 05/24/23 08:10 Dose: 500 mg Documented By: STEVE Dicyclomine HCl (Dicyclomine Hcl 10 Mg Capsule) 20 mg PO QID [facility] Last Admin: 05/24/23 08:10 Dose: 20 mg Documented By: STEVE Docusate Sodium (Docusate Sodium 100 Mg Capsule) 100 mg PO DAILY PRN PRN Reason: Constipation Melatonin (Melatonin 3 Mg Tablet) 6 mg PO BEDTIME PRN PRN Reason: Insomnia Last Admin: 05/21/23 23:20 Dose: 6 mg Documented By: JOHN Mirabegron (Mirabegron 50 Mg Tab.Er.24h) 50 mg PO DAILY [facility] Last Admin: 05/24/23 08:10 Dose: 50 mg Documented By: STEVE Morphine Sulfate (Morphine Sulfate 2 Mg/Ml Cartridge) 2 mg IVPUSH Q4H PRN; Protocol PRN Reason: Pain, Severe (Pain Scale 7-10) Last Admin: 05/24/23 04:39 Dose: 2 mg Documented By: SUSHMA Nicotine (Nicotine 14 Mg Patch.Td24) 14 mg TRANSDERMA DAILY [facility] Last Admin: 05/24/23 08:11 Dose: 14 mg Documented By: STEVE Pt Own (Mesalamine 1 (,000 Mg Suppository)) 1 gm [place] BEDTIME [facility] Last Admin: 05/23/23 20:33 Dose: Not Given Documented By: SUSHMA Non-Admin Reason: Patient Refused Ondansetron HCl (Ondansetron Hcl 4 Mg/2 Ml Vial) 4 mg IVPUSH Q8H PRN PRN Reason: Nausea and Vomiting Last Admin: 05/22/23 02:35 Dose: 4 mg Documented By: JOHN Oxycodone HCl (Oxycodone Hcl Immed Release 5 Mg Tablet) 5 mg PO Q6H PRN PRN Reason: Pain, Moderate(Pain Scale 4-6) Last Admin: 05/24/23 08:10 Dose: 5 mg Documented By: STEVE Sodium Chloride (0.9 % Sodium Chloride Flush 3 Ml Syringe) 3 ml IVFLUSH QSHIFT [facility] Last Admin: 05/24/23 08:11 Dose: 3 ml Documented By: STEVE Vitamin D (Cholecalciferol (Vitamin D3) 25 Mcg Tablet) 25 mcg PO DAILY [facility] Last Admin: 05/24/23 08:10 Dose: 25 mcg Documented By: STEVE Labs 05/22/23 05:35 05/22/23 05:35 Assessment and Plan (1) Proctitis: Status: Acute Plan 57-year-old female with 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 #Acute proctitis as seen on CT, proctofoam qid, mesalamine suppositories, gi consult, hold Abx or steroid at this time. Flex yesterday, biopsy taken further recommendation based # acute hyponatremia -etiology unclear, ?r/t etoh use.. Resolved. # urge incontinence -continue Mirabegron # chronic left lower quadrant pain -recent colonoscopy showed severe diverticulosis which could be contributing to patient's pain per GI -continue dicyclomine, mesalamine suppositories # nicotine dependence -declines NRT -smoking cessation counseling offered DVT prophylaxis- SCPs Full code Time Spent With Patient Time: Total time managing care of this patient today ____ minutes. Quality Stroke Does the patient have a stroke diagnosis?: No VTE Prior VTE?: No VTE Risk Level:: Medical - moderate - high VTE Device Contraindication: N/A - Device Ordered VTE Drug Contraindication: Treatment Not Indicated
--- NOTE | 2023-05-24 13:43 | HO.POSTANES ---
Post Anesthesia Evaluation Post Anesthesia Evaluation Date of Service: 05/23/23 Vital Signs: Vital Signs Temp Pulse Resp BP Pulse Ox O2 Del Method 05/24/23 07:41 97.1 F 74 17 128/76 95 Room Air 05/24/23 03:43 96.8 F 83 18 130/85 96 Room Air Anesthesia: Monitored Mental Status: Awake Pain Control: Satisfactory Nausea/Vomiting: None Hydration: Adequate Anesthesia-Related Issues: No Anes. Related Issues
[2023-05-24 15:43] VITALS: BP 156/89; PULSE 85; RESP 18; TEMP 36.5; O2SAT 96
[2023-05-24 19:48] VITALS: BP 158/95; PULSE 80; RESP 18; TEMP 36.3; O2SAT 97
[2023-05-25 03:29] VITALS: BP 128/70; PULSE 64; RESP 18; TEMP 36.2; O2SAT 98
[2023-05-25] MEDS: Morphine Sulfate 2 MG/ML CARTRIDGE IVPUSH ×2 (06:18→10:19)
--- NOTE | 2023-05-25 06:39 | PC.NURSE ---
patient had a small blood tinged BM this morning,
[2023-05-25 07:32] VITALS: BP 119/76; PULSE 88; RESP 16; TEMP 36; O2SAT 94
--- NOTE | 2023-05-25 07:43 | P.PNIM_ITS ---
Subjective Subjective Date of Service: 05/25/23 Interval History: Says she had bloody bm overnight Physical Exam 2 Vital Signs: Vital Signs: Last Vital Signs Temp 96.8 F 05/25/23 07:32 Pulse 88 05/25/23 07:32 Resp 16 05/25/23 07:32 BP 119/76 05/25/23 07:32 Pulse Ox 94 05/25/23 07:32 O2 Del Method Room Air 05/25/23 07:32 BMI result Body Mass Index 19.8 Const: Other: General: AO X 3, no acute distress Resp: CTA bilateral CVS: S1,S2,RRR GI: +BS, minimal lower abd tenderness, no distention Skin: No rash Neuro: motor grossly intact Psych: appropriate affect Objective Data Active Medications Acetaminophen (Acetaminophen 325 Mg Tablet) 650 mg PO Q6H PRN PRN Reason: Pain, Mild (Pain Scale 1-3) Calcium Carbonate (Calcium Carbonate 500 Mg Tablet) 500 mg PO BID [facility] Last Admin: 05/24/23 19:36 Dose: 500 mg Documented By: SUSHMA Dicyclomine HCl (Dicyclomine Hcl 10 Mg Capsule) 20 mg PO QID [facility] Last Admin: 05/24/23 19:36 Dose: 20 mg Documented By: SUSHMA Docusate Sodium (Docusate Sodium 100 Mg Capsule) 100 mg PO DAILY PRN PRN Reason: Constipation Melatonin (Melatonin 3 Mg Tablet) 6 mg PO BEDTIME PRN PRN Reason: Insomnia Last Admin: 05/21/23 23:20 Dose: 6 mg Documented By: JOHN Mirabegron (Mirabegron 50 Mg Tab.Er.24h) 50 mg PO DAILY [facility] Last Admin: 05/24/23 08:10 Dose: 50 mg Documented By: STEVE Morphine Sulfate (Morphine Sulfate 2 Mg/Ml Cartridge) 2 mg IVPUSH Q4H PRN; Protocol PRN Reason: Pain, Severe (Pain Scale 7-10) Last Admin: 05/25/23 06:18 Dose: 2 mg Documented By: SUSHMA Nicotine (Nicotine 14 Mg Patch.Td24) 14 mg TRANSDERMA DAILY [facility] Last Admin: 05/24/23 08:11 Dose: 14 mg Documented By: STEVE Pt Own (Mesalamine 1 (,000 Mg Suppository)) 1 gm [place] BEDTIME [facility] Last Admin: 05/24/23 19:40 Dose: 1 gm Documented By: SUSHMA Ondansetron HCl (Ondansetron Hcl 4 Mg/2 Ml Vial) 4 mg IVPUSH Q8H PRN PRN Reason: Nausea and Vomiting Last Admin: 05/22/23 02:35 Dose: 4 mg Documented By: JOHN Oxycodone HCl (Oxycodone Hcl Immed Release 5 Mg Tablet) 5 mg PO Q6H PRN PRN Reason: Pain, Moderate(Pain Scale 4-6) Last Admin: 05/24/23 19:35 Dose: 5 mg Documented By: SUSHMA Sodium Chloride (0.9 % Sodium Chloride Flush 3 Ml Syringe) 3 ml IVFLUSH QSHIFT [facility] Last Admin: 05/24/23 19:40 Dose: 3 ml Documented By: SUSHMA Vitamin D (Cholecalciferol (Vitamin D3) 25 Mcg Tablet) 25 mcg PO DAILY [facility] Last Admin: 05/24/23 08:10 Dose: 25 mcg Documented By: MCGINNM Labs 05/22/23 05:35 05/22/23 05:35 Assessment and Plan (1) Proctitis: Status: Acute Plan 57-year-old female with 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 #Acute proctitis as seen on CT, proctofoam qid, mesalamine suppositories, , hold Abx or steroid at this time. Flex 05/23: Mucosa: Erythema and cobblestoning was noted in the rectum till 16 cm. The mucosa was then normal till distal sigmoid colon (albeit the lumen was narrowed). Cold forceps biopsies were taken to r/o ulcerative proctitis. Protruding lesions: * Medium internal hemorrhoids without stigmata of recent bleeding. Excavated lesions: * Severe diverticulosis of sigmoid colon. * check cbc today if ok, discharge # acute hyponatremia -etiology unclear, ?r/t etoh use.. Resolved. # urge incontinence -continue Mirabegron # chronic left lower quadrant pain -recent colonoscopy showed severe diverticulosis which could be contributing to patient's pain per GI -continue dicyclomine, mesalamine suppositories # nicotine dependence -declines NRT -smoking cessation counseling offered DVT prophylaxis- SCPs Full code Time Spent With Patient Time: Total time managing care of this patient today ____ minutes. Quality Stroke Does the patient have a stroke diagnosis?: No VTE Prior VTE?: No VTE Risk Level:: Medical - moderate - high VTE Device Contraindication: N/A - Device Ordered VTE Drug Contraindication: Treatment Not Indicated
[2023-05-25] MEDS: Mirabegron 50 MG TAB.ER.24H PO (08:14)
[2023-05-25] MEDS: Docusate Sodium 100 MG CAPSULE PO (08:14)
[2023-05-25] MEDS: Dicyclomine HCl 10 MG CAPSULE 20 MG PO ×2 (08:14→14:08)
[2023-05-25] MEDS: Cholecalciferol (Vitamin D3) 25 MCG TABLET PO (08:15)
[2023-05-25] MEDS: Nicotine 14 MG PATCH.TD24 TRANSDERMA (08:16)
[2023-05-25] MEDS: oxyCODONE HCl Immed Release 5 MG TABLET PO ×2 (08:19→14:10)
[2023-05-25] MEDS: 0.9 % Sodium Chloride Flush 3 ML SYRINGE IVFLUSH (10:21)
[2023-05-25 10:36] LABS: Hematocrit 40.3 % (37.0-47.0); Hemoglobin 14.3 g/dl (12.0-16.0); Mean Corpuscular HGB Conc 35.5 g/dl (31.0-35.0); Mean Corpuscular Hemoglobin 35.9 pg (27.0-33.0); Mean Corpuscular Volume 101.3 fL (80.0-98.0); Mean Platelet Volume 8.8 fL (9.4-12.3); Platelet Count 275 X10*3/uL (160-400); Red Blood Count 3.98 X10*6/uL (4.20-5.50); Red Cell Distribution Width 11.9 % (11.0-16.0); White Blood Count 10.3 X10*3/uL (4.8-10.8)
--- NOTE | 2023-05-25 15:46 | PM.DS ---
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 She states that she has been experiencing left lower quadrant pain for about 5 months and has been following with Gastroenterology. She has had multiple CT scans showing colonic diverticulosis with mild mural thickening but no evidence of diverticulitis. She was then found to have Campylobacter infection treated with p.o. Levaquin for 10 days. She then underwent colonoscopy on 05/[address] Sotelo showing severe diverticulosis with mucosal Hydrea pressure via narrowing with tight angulation of the colon and a 1 cm sessile polyp was removed. Possibly a segmental colitis associated with diverticulosis syndrome. It was thought that the diverticular disease was the cause of her left lower quadrant pain. Unfortunately, left lower quadrant pain worsened 2 days ago. The pain now radiates to the left back and she is reporting severe rectal pain/pressure with fecal urgency with limited stool output. There is also been bright red blood per rectum. She is reporting small amount of constipation and occasional diarrhea. Denies any fevers or chills. Currently reports pain as an 8/10. On arrival, vital signs stable. There is no leukocytosis. No anemia. Renal function baseline, though BUN quite low at <3. Sodium 127, chloride 94, electrolytes otherwise normal. Hepatic function normal. CT abdomen/pelvis shows decompressed rectal wall that is thickened with perirectal inflammatory change concerning for focal proctitis which appeared normal on prior exam. There is also colonic diverticulosis as noted but no obvious diverticulitis. In the ED, given 1 L IV NS. The patient does endorse drinking between 3-6 beers about 3 nights per week. She smokes marijuana but denies any illicit drug use. Endorses smoking 1 pack cigarettes on a daily basis. Hospital course: patient was admitted, initially given antibiotics but these were stopped due to low suspicion for infectious process, her hemoglobin has not shifted and remainin normal range presently at 14. She underwent Flex [address] Méndez on 05/23 with findings and recommendation as follow: 1. Abnormal rectal mucosa 2. Diverticulosis 3. Internal hemorrhoids Recommendations: - Follow path results. - If bx confirm ulcerative proctitis will recommend topical mesalamine vs hydrocort enema. Pathology report is not yet available but will give Preparatio H for hemorrhoid and to follow up with Dr. Méndez for biopsy result and further management. Time Spent with Patient Time attestation: Total time managing care of this patient today ____ minutes. Discharge coordination time: Greater than 30 minutes Quality: Safe Use of Opioids Does Pt have an Active Cancer Diagnosis on the Problem List?: No Quality: Stroke Does the patient have a stroke diagnosis?: No Physical Exam Vital Signs: Vital Signs: Last Vital Signs Temp 96.8 F 05/25/23 07:32 Pulse 88 05/25/23 07:32 Resp 16 05/25/23 07:32 BP 119/76 05/25/23 07:32 Pulse Ox 94 05/25/23 07:32 O2 Del Method Room Air 05/25/23 07:32 BMI result Body Mass Index 19.8 DS: Data Data Completed and Pending Completed studies during hospitalization [Text1]: Pending at discharge 05/23/23 16:29 Surgical [PTH] Routine Labs on day of discharge: Laboratory Results - last 24 hr 05/25/23 10:25 WBC 10.3 RBC 3.98 L Hgb 14.3 Hct 40.3 MCV 101.3 H MCH 35.9 H MCHC 35.5 H RDW 11.9 Plt Count 275 MPV 8.8 L Absolute Nucleated RBC 0.000 Nucleated RBC % (auto) 0.0 Discharge Plan Discharge Anticipated Discharge Date/Time: 05/25/23 15:09 Patient Disposition: Home, Self-Care Discharge Diagnosis: proctitis Referrals: Paresh Strong MD [Primary Care Provider] - 1 Week Daniela Méndez MD [Physician] - 1 Week Discharge Medications: New Hemorrhoidal(PE-min oil-kun) 0.25-14-74.9 % ointment 1 appl MO BID Qty: 57 0RF Continued mesalamine 1,000 mg suppository 1 g MO BEDTIME 30 Days Qty: 30 3RF Myrbetriq 50 mg tablet extended release 24 hr 50 mg PO DAILY Qty: 90 1RF calcium carbonate [Oyster Shell Calcium] 500 mg calcium (1,250 mg) tablet 500 mg PO BID cholecalciferol (vitamin D3) 25 mcg (1,000 unit) tablet 25 mcg PO DAILY dicyclomine 20 mg tablet 20 mg PO QID 30 Days Qty: 120 1RF Discharge Orders: Discharge Order (Routine); Ordered 05/25/23 Ordered By: Pierre Silva Diet: Advance to usual diet Activity on Discharge: As tolerated Stand Alone Forms: Patient Portal Discharge page Care Plan Goals: resolution of rectal inflamation Health Concerns: rectal inflamation Plan of Treatment: use preparation h as recommended and follow up with Dr. Méndez Assessment: as above
--- NOTE | 2023-05-25 16:09 | MHC.CM.PN ---
PT WILL DC HOME WITH NO SERVICES VIA PRIVATE TRANSPORT
== END 2023-05-25 17:00 | disposition home or self-care (01) | DRG 244 ==
LOC: HO.ED 19:37 → HO.EDOVER 19:58 → HO.S3 20:08
PROVIDERS: Internal Medicine; Physician Assistant; Admitting Provider Physician Assistant; Emergency Provider Emergency Medicine; PCP Internal Medicine Medical Oncology; Visit Provider Internal Medicine
PROC: 0DJD8ZZ Inspection of Lower Intestinal Tract, Via Natural or Artificial Opening Endoscopic (ICD-10-PCS; CPT 45330; principal; 2023-05-23 15:10)
DX: K57.31 Diverticulosis of large intestine without perforation or abscess with bleeding (principal); E87.1 Hypo-osmolality and hyponatremia; F17.210 Nicotine dependence, cigarettes, uncomplicated; M48.05 Spinal stenosis, thoracolumbar region; K62.89 Other specified diseases of anus and rectum; M51.05 Intervertebral disc disorders with myelopathy, thoracolumbar region; N39.41 Urge incontinence; M51.15 Intervertebral disc disorders with radiculopathy, thoracolumbar region; K64.8 Other hemorrhoids; Z71.6 Tobacco abuse counseling; Z79.899 Other long term (current) drug therapy
CPT/HCPCS: 36415; 74177; 80048; 80076; 82272; 83735; 83930; 83935; 84300; 85025; 85027; 85610; 85730; 88305; 99285; J1956; J2270; J2405; Q9967

== ENCOUNTER → 2023-05-21 19:46 | Outpatient (BNV) | payer OTHER, SELFPAY | PROVIDERS: Admitting Provider Physician Assistant; Emergency Provider Emergency Medicine; PCP Internal Medicine Medical Oncology; Visit Provider Physician Assistant | DX: K62.89 Other specified diseases of anus and rectum (principal) | CPT/HCPCS: 99223; 99232; 99239 ==

== ENCOUNTER → 2023-05-22 09:43 | Outpatient (BNV) | payer OTHER, SELFPAY | PROVIDERS: Admitting Provider Physician Assistant; Emergency Provider Emergency Medicine; PCP Internal Medicine Medical Oncology; Visit Provider Internal Medicine | DX: K62.5 Hemorrhage of anus and rectum (principal); K57.30 Diverticulosis of large intestine without perforation or abscess without bleeding; K64.9 Unspecified hemorrhoids; K31.89 Other diseases of stomach and duodenum | CPT/HCPCS: 45331; 99222 ==

== ENCOUNTER 2023-05-31 11:12 | Outpatient (AMB) | payer OTHER, SELFPAY ==
--- NOTE | 2023-05-31 11:20 | MHC.OFFVIS ---
Intake Vital Signs 05/31/23 11:24 Height 5 ft 3 in Weight 114 lb 10.246 oz BMI 20.3 BP 128/86 Blood Pressure Location Lt brachial Position Sitting Pulse 84 Intake Visit Reasons: s/p colo Intake Note: Cathie presents in the office as a follow up colonoscopy. CC: She states that she was in the ED mon-sunday last week. She was having bowel movements of blood. She still has some spotting. Gaming Manager Required: No Allergies amoxicillin [From Augmentin] Allergy (Intermediate, Verified 05/31/23 11:25) Vomiting clavulanic acid [From Augmentin] Allergy (Intermediate, Verified 05/31/23 11:25) Vomiting HPI s/p colo HPI Details Assessment & Plan (1) Left sided abdominal pain: ?Code(s): R10.9 - Unspecified abdominal pain (2) Back pain: ?Code(s): M54.9 - Dorsalgia, unspecified ? ? ? Orders: Orders XR thoracic spine 2V Today M54.9 - Dorsalgia, unspecified, R10. 9 - Unspecified ab dominal pain ? Colonoscopy - GI U se Only Today M54.9 - Dorsalgia, unspecified, R10. 9 - Unspecified ab dominal pain ? Medications: New peg 3350-electroly navin 236-22.74-6.74 -5.86 gram (Golyt mohan) ?? until feca l effluent is jami r; do not exceed a total volume of 2 ,000 mL 240 mL? PO Q10M 1 day 4,000 mL 0RF Z12.11 - Encounter for screening for malignant neoplas m of colon ? dicyclomine 20 mg? PO QID 30 d ays 120 tabs 1RF ? She has not yet done the Gi panel. She stlll has pain in hanh LLQ that is constant and very severe with BM's I scream in pain when I have to move my bowels even if it is diarrhea or irina. We review the CT and there is no clear cause for her pain revealed. However, she does have ? thickening in the sigmoid but this is a common reading that is not usually pathologic but under-distension but this is why I ordered the leva and flagy. She is unclear if there was any improvement with this, she also had dysuria and this improved along wtih her new incontinence pill. We will order colonoscopy for definitive dx and add thoracic spine xrays and a trial fo bentyl. ROV 3 weeks.? ? X-RAY OF THORACIC SPINE COLONOSCOPY 05/24/23 Findings: Terminal Ileum-normal Cecum:normal Ascending Colon: scattered diverticula Transverse Colon -normal Descending Colon: moderate diverticulosis Sigmoid Colon: severe diverticulosis with mucosal hypertrophy and narrowing, with tight angulation of colon. 10 mm sessile polyp removed with cold snare Rectum: Retroflexion with medium sized internal hemorrhoids, grade I, At rectosigmoid jn there was mucosal hypertrophy and marked narrowing with erythema, bx taken, no masses seen Anorectum - normal Impression and Post Procedure Diagnosis: polyp internal hemorrhoids diverticular disease- probably this is the cause of her LLQ pain non specific colitis possible SCAD Plan: High fiber diet leaflet Avoid straining at stool, epsom salts and sitz bath, anusol supps or cream, avoid constipation Repeat sigmoidoscopy in 3-6 months to re evaluate rectosigmoid area or earlier if clinically indicated--will also send her a trial of mesalamine supp to see if helps BIOPSY Received: 05/24/23 Diagnosis Rectum, abnormal mucosa, biopsy: Active proctitis with mild activity and surface erosion (see comment). COMMENT: No chronic mucosal injury nor granulomas are seen. The differential diagnosis includes infection, ischemic changes, drug/medication effect or idiopathic inflammatory bowel disease CORRESPONDENCE On 04/30/23 @ 15:51 Adams Eastman Wrote To Tavares,December FYI-Called patient back and she stated that she was returning a call back about test results. She states she had a little bit of diarrhea this morning but she is usually constipated. She is unsure if this is related to bacteria as she states she has been like this for about 5 months sometimes having diarrhea and other times constipation. Patient scheduled for colonoscopy tomorrow. ? Called Jolie Devine and [facility] requesting a call back. On 04/30/23 @ 14:15 Sonja Chapin Wrote To Adams Eastman We already treated her with Levaquin thinking it might be diverticulitis and she was feeling better in terms of the diarrhea.? That is all I really no as she denies eating out or eating any undercooked food seafood etc.. TODAY'S VISIT She had severe rectal bleeding and LLQ pain and presented to the ER where they did a CT scan showing possible focal proctitis and she was admitted. At that time she had either flex sig or full colonoscopy by Dr. Jairo geiger (they said they saw through the ascending colon) that did show cobblestoning and erythema in the sigmoid/rectal region. In the past there been some question for IBD and Dr. Has son had tried putting on mesalamine suppositories which seem to worsen her condition. At this point I will start her on systemic therapy since we have had no other good diagnosis with prednisone and mesalamine. She does have osteoporosis so will need to try to keep the prednisone therapy to the short as possible duration. She was educated about inflammatory bowel disease and the exacerbating remitting nature of it that makes diagnosis difficult which is why she has probably gone for such a long time without a good explanation particularly in the face of having stop severe diverticulosis in the sigmoid area with narrowing also complicating the picture. I think I will get [facility] to try to clarify the diagnosis further and since she was admitted for hyponatremia we will repeat her Chem panel to make sure her . Sodium is normalized. She does drink Gatorade on a regular basis. She is NOT having diarrhea now but CIC (she thinks is r/t oxycodone) and she is digitally disimpacting with a feeling of tenesmus. She still has severe LLQ pain. Smells of ETOH again. ROV 3 weeks. [facility] Medical History (Updated 06/02/23 @ 00:04 by Juan Guallpa) Hx of sigmoidoscopy Pyelonephritis Nephrolithiasis Ureterolithiasis Insomnia History of hypertension Tobacco dependence Urinary incontinence Lumbar spinal stenosis Cervical spondylosis Lumbar radiculopathy Fibromyalgia Degenerative joint disease of spine Surgical History H/O colonoscopy History of facial surgery History of salpingectomy History of hip surgery History of right knee surgery Social History Household Members: None Household Members Other:: Patient lives by herself Housing: House Do you presently have visiting nurse or other home services: No Alcohol intake: current Alcohol intake frequency: a few times a week Patient Tobacco Use Status: Current everyday Tobacco user Tobacco use type: Cigarette Cigarette Packs Per Day: 1 Cigarettes Per Day: 20.0 Years Smoked: 30 Substance Use Type: Marijuana service: No Review of Systems Const Denies fatigue, Denies fever(s), Denies night sweats, Denies poor appetite and Denies weight loss ENT Reports Normal hearing present, Denies dental pain, Denies dysphagia, Denies hearing loss, Denies mouth pain, Denies odynophagia, Denies throat swelling, Denies tongue swelling and Reports other (Dentition adequate) Card Reports no additional complaints Resp Reports no additional complaints GI Reports abdominal pain, Denies melena, Denies bloating, Reports hematochezia, Reports constipation, Denies GI cramping, Denies dysphagia, Denies excessive flatus, Denies early satiety, Denies heartburn, Denies diarrhea, Denies nausea, Denies odynophagia, Denies vomiting and Denies hematemesis Musc Reports back pain Skin/Breast Denies pruritus, Denies lesions, Denies rash and Denies jaundice Neuro Reports Normal hearing present and Denies Abnormal speech present Endo Denies fatigue Aller/Immun Denies throat swelling and Denies tongue swelling Physical Exam Vital Signs: Last Vital Signs Pulse 84 05/31/23 11:24 BP 128/86 05/31/23 11:24 BMI result Body Mass Index 20.3 Const General: cooperative, no acute distress, well developed and well groomed Nutritional Appearance: average body habitus and well nourished Orientation/consciousness: oriented to person, oriented to place and oriented to time Limitations: No language barrier HEENT Head: Yes normocephalic and Yes atraumatic Eyes General: appearance normal, both eyes and all related structures Pupils: Equal, round and reactive pupils present Neck Neck: Yes normal visual inspection and Yes no lymphadenopathy Thyroid: Thyroid normal Resp Effort & Inspection: normal respiratory effort and able to speak in complete sentences Auscultation: clear to auscultation bilaterally Cardio Rate: regular rate Rhythm: regular rhythm Heart sounds: Normal, physiologic split S2 sound present Peripheral pulses: radial pulses present and posterior tibial pulses present GI Inspection: No distended and No Abdominal panniculus present Palpation (GI): Soft to palpation, nontender, no guarding, not rigid and No hepatosplenomegaly present Percussion: Yes normal to percussion Auscultation: normal bowel sounds Rectal Exam - Female: deferred Skin General skin exam: no rashes or lesions noted, turgor normal, skin not dry, no jaundice, No spider nevi and no striae Rashes: no rashes Nails: normal Neuro General: oriented to person, oriented to place and oriented to time Cranial nerves: Yes Equal, round and reactive pupils present and Yes Normal hearing present Speech: No Abnormal speech present Extrem General: Yes normal to inspection, No clubbing, No cyanosis and No edema Psych Appearance: grossly normal and well kempt Mental Status: mental status grossly normal Speech and movement: Normal speech and movement present Affect: normal affect Attitude: cooperative Thought process: Normal thought process present and not confabulating Thought content: Normal thought content present Insight: Limited insight present (Psych) Judgement: Limited judgement present (Psych) Assessment & Plan Assessment & Plan (1) Ulcerative colitis: Code(s): K51.90 - Ulcerative colitis, unspecified, without complications Plan: She had severe rectal bleeding and LLQ pain and presented to the ER where they did a CT scan showing possible focal proctitis and she was admitted. At that time she had either flex sig or full colonoscopy by Dr. Jairo geiger (they said they saw through the ascending colon) that did show cobblestoning and erythema in the sigmoid/rectal region. In the past there been some question for IBD and Has son had tried putting on mesalamine suppositories which seem to worsen her condition. At this point I will start her on systemic therapy since we have had no other good diagnosis with prednisone and mesalamine. She does have osteoporosis so will need to try to keep the prednisone therapy to the short as possible duration. She was educated about inflammatory bowel disease and the exacerbating remitting nature of it that makes diagnosis difficult which is why she has probably gone for such a long time without a good explanation particularly in the face of having stop severe diverticulosis in the sigmoid area with narrowing also complicating the picture. I think I will get [facility] to try to clarify the diagnosis further and since she was admitted for hyponatremia we will repeat her Chem panel to make sure her . Sodium is normalized. She does drink Gatorade on a regular basis. She is NOT having diarrhea now but CIC (she thinks is r/t oxycodone) and she is digitally disimpacting with a feeling of tenesmus. She still has severe LLQ pain. Smells of ETOH again. ROV 3 weeks. (2) Bright red rectal bleeding: Code(s): K62.5 - Hemorrhage of anus and rectum (3) Proctitis: Code(s): K62.89 - Other specified diseases of anus and rectum (4) Left sided abdominal pain: Code(s): R10.9 - Unspecified abdominal pain (5) Hyponatremia: Code(s): E87.1 - Hypo-osmolality and hyponatremia Orders: Orders Electrolytes 05/31/23 E87.1 - Hypo-osmolality and hyponatremia, K51.90 - Ulcerative colitis, unspecified, without complications [facility] 05/31/23 E87.1 - Hypo-osmolality and hyponatremia, K51.90 - Ulcerative colitis, unspecified, without complications [facility] 05/31/23 E87.1 - Hypo-osmolality and hyponatremia, K51.90 - Ulcerative colitis, unspecified, without complications Medications: New prednisone 40 mg (2 x 20 mg) PO DAILY 60 tabs 1RF K51.90 - Ulcerative colitis, unspecified, without complications mesalamine ER 1,000 mg (2 x 500 mg) PO BID 120 caps 3RF K51.90 - Ulcerative colitis, unspecified, without complications, K62.5 - Hemorrhage of anus and rectum, K62.89 - Other specified diseases of anus and rectum, R10.9 - Unspecified abdominal pain Coding Level of Care Code Est Pt Level 4 (35791) Diagnoses Ulcerative colitis K51.90 Bright red rectal bleeding K62.5 Proctitis K62.89 Left sided abdominal pain R10.9 Hyponatremia E87.1
[2023-05-31 11:24] VITALS: BP 128/86; PULSE 84; BMI 20.3
== END 2023-05-31 11:54 | disposition home or self-care (01) ==
PROVIDERS: PCP Internal Medicine Medical Oncology; Visit Provider Nurse Practitioner
DX: K51.90 Ulcerative colitis, unspecified, without complications (principal); K62.5 Hemorrhage of anus and rectum; K62.89 Other specified diseases of anus and rectum; R10.9 Unspecified abdominal pain; E87.1 Hypo-osmolality and hyponatremia
CPT/HCPCS: 99214

== ENCOUNTER → 2023-05-31 11:12 | Outpatient (BNVA) | payer OTHER, SELFPAY | PROVIDERS: PCP Internal Medicine Medical Oncology; Visit Provider Nurse Practitioner | DX: K51.90 Ulcerative colitis, unspecified, without complications (principal); K62.5 Hemorrhage of anus and rectum; K62.89 Other specified diseases of anus and rectum; R10.9 Unspecified abdominal pain; E87.1 Hypo-osmolality and hyponatremia | CPT/HCPCS: 99212 ==

== ENCOUNTER 2023-11-21 11:46 | Outpatient (REF) | payer OTHER, SELFPAY ==
[2023-11-21 13:21] LABS: Anion Gap 14 (12-20); Blood Urea Nitrogen 4 mg/dL (9-16); Carbon Dioxide 31 mmol/L (22-29); Chloride 94 mmol/L (96-108); Estimated Glomerular Filt Rate > 60; Potassium 3.1 mmol/L (3.3-5.1); Sodium 136 mmol/L (135-145)
== END 2023-11-21 11:47 | disposition home or self-care (01) ==
LOC: HO.LAB 11:46
PROVIDERS: PCP Internal Medicine Medical Oncology; Visit Provider Nurse Practitioner
DX: R10.9 Unspecified abdominal pain (principal); E87.1 Hypo-osmolality and hyponatremia; K51.90 Ulcerative colitis, unspecified, without complications; R30.0 Dysuria; N39.0 Urinary tract infection, site not specified
CPT/HCPCS: 36415; 80051; 81335; 81479; 82397; 82565; 83520; 84520; 86140; 87086; 88346; 88350

== ENCOUNTER 2024-01-10 12:00 | Outpatient (AMB) | payer OTHER, SELFPAY ==
--- NOTE | 2024-01-10 12:05 | MHC.OFFVIS ---
Vital Signs 01/10/24 12:06 Height 5 ft 3 in Weight 114 lb 3.191 oz BMI 20.2 BP 125/84 Blood Pressure Location Lt brachial Position Sitting Pulse 93 Intake Visit Reasons: pt requested appointment r/s from 12/12/23 Intake Note: Cathie returns in follow up of labs and abdominal pain. CC: Patient c/o bilateral upper quadrant abdominal pain. She also states that she's had a few flare ups in the past 7 months and was having a clear gel like substance coming out of her rectum mixed with blood. She states her PCP placed her on abx. She states she d/c the Prednisone d/t feeling terrible and a lot of pain all over her body. 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 At that time she had either flex sig or full colonoscopy by Dr. Jairo geiger (they said they saw through the ascending colon) that did show cobblestoning and erythema in the sigmoid/rectal region. In the past there been some question for IBD and DrUlysses Has son had tried putting on mesalamine suppositories which seem to worsen her condition. At this point I will start her on systemic therapy since we have had no other good diagnosis with prednisone and mesalamine. She does have osteoporosis so will need to try to keep the prednisone therapy to the short as possible duration. She was educated about inflammatory bowel disease and the exacerbating remitting nature of it that makes diagnosis difficult which is why she has probably gone for such a long time without a good explanation particularly in the face of having stop severe diverticulosis in the sigmoid area with narrowing also complicating the picture. I think I will get [facility] to try to clarify the diagnosis further and since she was admitted for hyponatremia we will repeat her Chem panel to make sure her . Sodium is normalized. She does drink Gatorade on a regular basis. She is NOT having diarrhea now but CIC (she thinks is r/t oxycodone) and she is digitally disimpacting with a feeling of tenesmus. She still has severe LLQ pain. Smells of ETOH again. ROV 3 weeks. (2) Bright red rectal bleeding: Code(s): K62.5 - Hemorrhage of anus and rectum (3) Proctitis: Code(s): K62.89 - Other specified diseases of anus and rectum (4) Left sided abdominal pain: Code(s): R10.9 - Unspecified abdominal pain (5) Hyponatremia: Code(s): E87.1 - Hypo-osmolality and hyponatremia Orders: Orders Electrolytes 05/31/23 E87.1 - Hypo-osmolality and hyponatremia, K51.90 - Ulcerative colitis, unspecified, without complications [facility] SGI 05/31/23 E87.1 - Hypo-osmolality and hyponatremia, K51.90 - Ulcerative colitis, unspecified, without complications [facility] TPMT Genetics 05/31/23 E87.1 - Hypo-osmolality and hyponatremia, K51.90 - Ulcerative colitis, unspecified, without complications Medications: New prednisone 40 mg (2 x 20 mg) PO DAILY 60 tabs 1RF K51.90 - Ulcerative colitis, unspecified, without complications mesalamine ER 1,000 mg (2 x 500 mg) PO BID 120 caps 3RF K51.90 - Ulcerative colitis, unspecified, without complications, K62.5 - Hemorrhage of anus and rectum, K62.89 - Other specified diseases of anus and rectum, R10.9 - Unspecified abdominal pain LABS: Laboratory Tests 05/22/23 11/21/23 05:35 12:04 Sodium 135 136 Potassium 3.7 3.1 L Chloride 101 94 L Carbon Dioxide 26 31 H C-Reactive Protein 0.80 H [facility] were not consistent with inflammatory bowel disease. X-RAY OF THORACIC SPINE COLONOSCOPY 05/24/23 Findings: Terminal Ileum-normal Cecum:normal Ascending Colon: scattered diverticula Transverse Colon -normal Descending Colon: moderate diverticulosis Sigmoid Colon: severe diverticulosis with mucosal hypertrophy and narrowing, with tight angulation of colon. 10 mm sessile polyp removed with cold snare Rectum: Retroflexion with medium sized internal hemorrhoids, grade I, At rectosigmoid jn there was mucosal hypertrophy and marked narrowing with erythema, bx taken, no masses seen Anorectum - normal Colon preparation: Impression and Post Procedure Diagnosis: polyp internal hemorrhoids diverticular disease- probably this is the cause of her LLQ pain non specific colitis possible SCAD Plan: High fiber diet leaflet Avoid straining at stool, epsom salts and sitz bath, anusol supps or cream, avoid constipation Repeat sigmoidoscopy in 3-6 months to re evaluate rectosigmoid area or earlier if clinically indicated--will also send her a trial of mesalamine supp to see if helps BIOPSY Received: 05/24/23 Diagnosis Rectum, abnormal mucosa, biopsy: Active proctitis with mild activity and surface erosion (see comment). COMMENT: No chronic mucosal injury nor granulomas are seen. The differential diagnosis includes infection, ischemic changes, drug/medication effect or idiopathic inflammatory bowel disease CORRESPONDENCE On 04/30/23 @ 15:51 Adams Eastman Wrote To Chapin,December FYI-Called patient back and she stated that she was returning a call back about test results. She states she had a little bit of diarrhea this morning but she is usually constipated. She is unsure if this is related to bacteria as she states she has been like this for about 5 months sometimes having diarrhea and other times constipation. Patient scheduled for colonoscopy tomorrow. ? Called Jolie Devine and [facility] requesting a call back. On 04/30/23 @ 14:15 Sonja Chapin Wrote To Adams Eastman We already treated her with Levaquin thinking it might be diverticulitis and she was feeling better in terms of the diarrhea.? That is all I really no as she denies eating out or eating any undercooked food seafood etc.. TODAY'S VISIT Patient has not been seen since 05/2023 despite calling for a three-week follow-up. She went on a cruise and says she called the office several times and left messages for appts and 'no one called me back. She could not tolerate the prednisone. I let her know that I do not think the she really has UC, I think she has severe diverticular disease. This was evident on the 2022 scope, and since I have seen her she had episodes of current jelly stools and bleeding. She was treated with abx and this improved the acute problems. However, she still has a low level of LLQ pain that is not solved with prednisone or any IBD tx (and the genetics are negative and the biopsies not conclusive) and has not responded to any IBD tx. She had been taking mesalamine w/o any relief and ? a rash on her back. At this point, I think she needs to see surgery about TICS adn SUDD. Referring to gen surgery. [facility] Medical History Hx of sigmoidoscopy Pyelonephritis Nephrolithiasis Ureterolithiasis Insomnia History of hypertension Tobacco dependence Urinary incontinence Lumbar spinal stenosis Cervical spondylosis Lumbar radiculopathy Fibromyalgia Degenerative joint disease of spine Surgical History H/O colonoscopy History of facial surgery History of salpingectomy History of hip surgery History of right knee surgery Social History Household Members: None Household Members Other:: Patient lives by herself Housing: House Do you presently have visiting nurse or other home services: No Alcohol intake: current Alcohol intake frequency: a few times a week Patient Tobacco Use Status: Current everyday Tobacco user Tobacco use type: Cigarette Cigarette Packs Per Day: 1 Cigarettes Per Day: 20.0 Years Smoked: 30 Substance Use Type: Marijuana service: No Review of Systems Const Denies fatigue, Denies fever(s), Denies night sweats, Denies poor appetite and Denies weight loss ENT Reports Normal hearing present, Denies dental pain, Denies dysphagia, Denies hearing loss, Denies mouth pain, Denies odynophagia, Denies throat swelling, Denies tongue swelling and Reports other (Dentition adequate) Card Reports no additional complaints Resp Reports no additional complaints GI Details: Reports abdominal pain, Denies melena, Denies bloating, Denies hematochezia, Denies constipation, Denies GI cramping, Denies dysphagia, Denies excessive flatus, Denies early satiety, Denies heartburn, Denies diarrhea, Denies nausea, Denies odynophagia, Denies vomiting and Denies hematemesis Skin/Breast Denies pruritus, Denies lesions, Denies rash and Denies jaundice Neuro Reports Normal hearing present and Denies Abnormal speech present Psych Reports anxiety Endo Denies fatigue Aller/Immun Denies throat swelling and Denies tongue swelling Physical Exam Vital Signs: Last Vital Signs Pulse 93 01/10/24 12:06 BP 125/84 01/10/24 12:06 BMI result Body Mass Index 20.2 Const General: cooperative, no acute distress, well developed and well groomed Nutritional Appearance: average body habitus and well nourished Orientation/consciousness: oriented to person, oriented to place and oriented to time Limitations: No language barrier HEENT Head: Yes normocephalic and Yes atraumatic Eyes General: appearance normal, both eyes and all related structures Pupils: Equal, round and reactive pupils present Neck Neck: Yes normal visual inspection and Yes no lymphadenopathy Thyroid: Thyroid normal Resp Effort & Inspection: normal respiratory effort and able to speak in complete sentences Auscultation: clear to auscultation bilaterally Cardio Rate: regular rate Rhythm: regular rhythm Heart sounds: Normal, physiologic split S2 sound present Peripheral pulses: radial pulses present and posterior tibial pulses present GI Inspection: No distended and No Abdominal panniculus present Palpation (GI): Soft to palpation, Tenderness to palpation present (GI) in the LLQ, no guarding, not rigid and No hepatosplenomegaly present Percussion: Yes normal to percussion Auscultation: normal bowel sounds Rectal Exam - Female: deferred Skin General skin exam: no rashes or lesions noted, turgor normal, skin not dry, no jaundice, No spider nevi and no striae Rashes: no rashes Nails: normal Neuro General: oriented to person, oriented to place and oriented to time Cranial nerves: Yes Equal, round and reactive pupils present and Yes Normal hearing present Speech: No Abnormal speech present Extrem General: Yes normal to inspection, No clubbing, No cyanosis and No edema Psych Appearance: grossly normal and well kempt Mental Status: mental status grossly normal Speech and movement: Normal speech and movement present Affect: Labile affect present Attitude: cooperative Thought process: Normal thought process present and not confabulating Thought content: Normal thought content present Insight: Limited insight present (Psych) Judgement: Limited judgement present (Psych) Assessment & Plan Assessment & Plan (1) Ulcerative colitis: Code(s): K51.90 - Ulcerative colitis, unspecified, without complications Category: Medical (2) Left sided abdominal pain: Code(s): R10.9 - Unspecified abdominal pain Category: Medical (3) Diverticulitis large intestine: Comment: Severe LLQ pain not IBD/UC and > 3 tx TICS in past year Code(s): K57.32 - Diverticulitis of large intestine without perforation or abscess without bleeding Category: Medical Plan Patient has not been seen since 05/2023 despite calling for a three-week follow-up. She went on a cruise and says she called the office several times and left messages for appts and 'no one called me back. She could not tolerate the prednisone. I let her know that I do not think the she really has UC, I think she has severe diverticular disease. This was evident on the 2022 scope, and since I have seen her she had episodes of current jelly stools and bleeding. She was treated with abx and this improved the acute problems. However, she still has a low level of LLQ pain that is not solved with prednisone or any IBD tx (and the genetics are negative and the biopsies not conclusive) and has not responded to any IBD tx. She had been taking mesalamine w/o any relief and ? a rash on her back. At this point, I think she needs to see surgery about TICS adn SUDD. Referring to gen surgery. Orders: Referrals General Surgery Referral K57.32 - Diverticulitis of large intestine without perforation or abscess without bleeding Medications: Discontinued mesalamine ER Discontinued Reason: Doctor's Order 1,000 mg (2 x 500 mg) PO BID 120 caps 3RF K51.90 - Ulcerative colitis, unspecified, without complications, K62.5 - Hemorrhage of anus and rectum, K62.89 - Other specified diseases of anus and rectum, R10.9 - Unspecified abdominal pain Coding Level of Care Code Est Pt Level 3 (22340) Diagnoses Ulcerative colitis K51.90 Left sided abdominal pain R10.9 Diverticulitis large intestine K57.32
[2024-01-10 12:06] VITALS: BP 125/84; PULSE 93; BMI 20.2
== END 2024-01-10 12:48 | disposition home or self-care (01) ==
PROVIDERS: PCP Internal Medicine Medical Oncology; Visit Provider Nurse Practitioner
DX: K51.90 Ulcerative colitis, unspecified, without complications (principal); R10.9 Unspecified abdominal pain; K57.32 Diverticulitis of large intestine without perforation or abscess without bleeding
CPT/HCPCS: 99213

== ENCOUNTER → 2024-01-10 12:00 | Outpatient (BNVA) | payer OTHER, SELFPAY | PROVIDERS: PCP Internal Medicine Medical Oncology; Visit Provider Nurse Practitioner | DX: K51.90 Ulcerative colitis, unspecified, without complications (principal); K57.32 Diverticulitis of large intestine without perforation or abscess without bleeding; R10.9 Unspecified abdominal pain | CPT/HCPCS: 99212 ==

== ENCOUNTER 2024-03-07 10:49 | Outpatient (AMB) | payer OTHER, SELFPAY ==
--- NOTE | 2024-03-07 11:01 | MHC.OFFVIS ---
Vital Signs 03/07/24 11:10 Height 5 ft 2.5 in Weight 114 lb BMI 20.5 BP 145/95 H Blood Pressure Location Lt brachial Position Sitting Pulse 85 Intake Visit Reasons: Diverticulitis Intake Note: Patient is seen in office for evaluation and treatment of diverticulitis. 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 She is undergone extensive workup and was found to have an area of proctitis possibly due to ulcerative colitis. She underwent testing for ulcerative colitis and was started on UC treatment without significant improvement. CT abdomen and pelvis revealed an area of diverticular changes in the sigmoid colon and flexible sigmoidoscopy revealed area of thickening of the sigmoid colon suggestive of chronic diverticulitis. She reports persistent pain in the left lower quadrant as well as pain passing her bowels. She denies any bleeding per rectum. She has had some postmenopausal vaginal bleeding and is due to see Melody Dumont in April for an initial evaluation. She denies any fever or chills. 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 [facility] Medical History Hx of sigmoidoscopy Pyelonephritis Nephrolithiasis Ureterolithiasis Insomnia History of hypertension Tobacco dependence Urinary incontinence Lumbar spinal stenosis Cervical spondylosis Lumbar radiculopathy Fibromyalgia Degenerative joint disease of spine Surgical History H/O colonoscopy History of facial surgery History of salpingectomy History of hip surgery History of right knee surgery Social History Household Members: None Household Members Other:: Patient lives by herself Housing: House Do you presently have visiting nurse or other home services: No Alcohol intake: current Alcohol intake frequency: a few times a week Patient Tobacco Use Status: Current everyday Tobacco user Tobacco use type: Cigarette Cigarette Packs Per Day: 1 Cigarettes Per Day: 20.0 Years Smoked: 30 Substance Use Type: Marijuana service: No Review of Systems Const All systems reviewed & are unremarkable except as noted in HPI and below Physical Exam Vital Signs: Last Vital Signs Pulse 85 03/07/24 11:10 BP 145/95 H 03/07/24 11:10 BMI result Body Mass Index 20.5 Const General: cooperative and no acute distress Nutritional Appearance: well nourished Orientation/consciousness: patient oriented x3 Limitations: no limitations HEENT Head: Yes normocephalic and Yes atraumatic Ears: hearing grossly normal bilaterally Resp Effort & Inspection: normal respiratory effort, no audible wheezes, no cough and no respiratory distress Cardio Jugular venous distension: no JVD GI Inspection: Yes normal to inspection Palpation (GI): Soft to palpation, Tenderness to palpation present (GI) in the LLQ and in the RLQ; not at McBurney's point, Severino's sign negative and with no rebound tenderness, no guarding, not rigid and No hepatosplenomegaly present Percussion: Yes normal to percussion Auscultation: normal bowel sounds Rectal Exam - Female: deferred Skin Other: Warm, dry, no rash Neuro General: patient oriented x3 Extrem General: Yes no clubbing, cyanosis or edema Assessment & Plan Assessment & Plan (1) Diverticulitis large intestine: Comment: Severe LLQ pain not IBD/UC and > 3 tx TICS in past year Code(s): K57.32 - Diverticulitis of large intestine without perforation or abscess without bleeding Category: Medical Qualifiers: Diverticulitis bleeding: without bleeding Diverticulitis complication: without perforation or abscess Qualified Code(s): K57.32 - Diverticulitis of large intestine without perforation or abscess without bleeding Plan 58-year-old female patient presenting with complaints of left lower quadrant abdominal pain and difficulty with bowels found to have diverticulitis. Her pain has persisted with several episodes of increased pain requiring IV antibiotics. She currently reports constant pain in the left lower quadrant. She incidentally also noted vaginal bleeding which should be worked up prior to any surgical procedure. She will try to obtain an appointment with radio sales account executive earlier. We discussed the role of surgery for diverticulitis. While she has not had any complications from the diverticulitis she does have persistent pain with multiple episodes of increased pain requiring IV antibiotics. As such we would be a good candidate for sigmoid colectomy. I reviewed the procedure, risks and alternatives in detail. She gives her consent for a hand assisted laparoscopic sigmoid colectomy. She will call after her radio sales account executive examination to schedule the surgery. Coding Level of Care Code New Pt Level 4 (18016) Diagnoses Diverticulitis of large intestine without perforation or abscess without bleeding K57.32 Diverticulitis bleeding: without bleeding Diverticulitis complication: without perforation or abscess
[2024-03-07 11:10] VITALS: BP 145/95; PULSE 85; BMI 20.5
== END 2024-03-07 11:38 | disposition home or self-care (01) ==
PROVIDERS: PCP Internal Medicine Medical Oncology; Referring Provider Nurse Practitioner; Visit Provider Surgery
DX: K57.32 Diverticulitis of large intestine without perforation or abscess without bleeding (principal)
CPT/HCPCS: 99204

== ENCOUNTER 2024-03-07 10:49 | Outpatient (REF) | payer OTHER, SELFPAY ==
[2024-03-07 14:11] LABS: Appearance Urine Clear; Color Urine Yellow; Glucose Urine UA Negative (Negative); Leukocyte Esterase Urine Negative (Negative); Nitrite Urine Negative (Negative); PH 5.5 (5.0-9.0); Specific Gravity - Urine <= 1.005 (1.005-1.025); UMIC TRIGGER UA YES; Urine Blood Small (1+) (Negative); Urine Ketones Negative (Negative); Urine Protein Negative (Neg-Trace)
[2024-03-07 14:27] LABS: Bacteria Urine None Seen (None Seen); Hyaline Casts Urine 0-2 /LPF (0-2); RBC Urine 0-2 /HPF (0-2); Squamous Epithelial Cell Urine 0-2 /HPF (0-2); WBC Urine 0-5 /HPF (0-5)
== END 2024-03-07 10:50 | disposition home or self-care (01) ==
LOC: HO.LAB 10:49
PROVIDERS: Absent Provider Internal Medicine Medical Oncology; PCP Internal Medicine Medical Oncology; Referring Provider Nurse Practitioner; Visit Provider Surgery
DX: K57.32 Diverticulitis of large intestine without perforation or abscess without bleeding (principal); R39.9 Unspecified symptoms and signs involving the genitourinary system
CPT/HCPCS: 81001; 81003; 87086; 99202

== ENCOUNTER 2024-03-20 07:24 | Outpatient (REF) | payer OTHER, SELFPAY ==
[2024-03-20 07:37] LABS: MANUAL DIFF FLAG NO
[2024-03-20 08:09] LABS: Basophils Absolute Auto 0.1 X10*3/uL (0.0-0.2); Basophils Percent Auto 0.6 % (0-2); Eosinophils Percent Auto 0.3 % (0-4); Hematocrit 48.1 % (37.0-47.0); Imm Gran Abs Auto 0.07 X10*3/uL (0.00-0.03); Imm Gran Pct Auto 0.5 % (0.0-0.4); Lymphocytes Absolute Auto 2.6 X10*3/uL (1.2-4.9); Lymphocytes Percent Auto 20.5 % (20-40); Mean Corpuscular HGB Conc 35.3 g/dl (31.0-35.0); Mean Corpuscular Hemoglobin 34.6 pg (27.0-33.0); Mean Platelet Volume 8.9 fL (9.4-12.3); Monocytes Absolute Auto 1.3 X10*3/uL (0.1-1.2); Monocytes Percent Auto 10.1 % (2-11); Neutrophils Absolute Auto 8.7 x10*3/uL (2.0-8.3); Platelet Count 332 X10*3/uL (160-400); Red Blood Count 4.91 X10*6/uL (4.20-5.50); Red Cell Distribution Width 13.2 % (11.0-16.0); White Blood Count 12.8 X10*3/uL (4.8-10.8)
[2024-03-20 08:42] LABS: Alanine Aminotransferase 19 U/L (0-31); Albumin Level 4.3 g/dL (3.5-5.0); Alkaline Phosphatase 117 U/L (39-117); Anion Gap 16 (12-20); Aspartate Amino Transferase 24 U/L (5-31); Bilirubin Total 1.3 mg/dL (0.0-1.0); Blood Urea Nitrogen 6 mg/dL (9-16); Calcium 10.4 mg/dL (8.4-10.2); Carbon Dioxide 25 mmol/L (22-29); Chloride 98 mmol/L (96-108); Cholesterol 151 mg/dL (<200); Estimated Glomerular Filt Rate > 60; Glucose Fasting 105 mg/dL (60-99); HDL Cholesterol 54 mg/dL (>40); LDL Cholesterol Calculated 78 mg/dL (<100); Potassium 3.4 mmol/L (3.3-5.1); Sodium 136 mmol/L (135-145); Total Protein 8.5 g/dL (6.5-8.0); Triglycerides 98 mg/dL (<150)
== END 2024-03-20 07:25 | disposition home or self-care (01) ==
LOC: HO.LAB 07:24
PROVIDERS: PCP Internal Medicine Medical Oncology; Visit Provider Internal Medicine Medical Oncology
DX: I10 Essential (primary) hypertension (principal); E78.5 Hyperlipidemia, unspecified
CPT/HCPCS: 36415; 80053; 80061; 85025

== ENCOUNTER 2024-04-11 10:41 | Outpatient (REF) | payer OTHER, SELFPAY ==
[2024-04-11 12:50] LABS: Bacterial Vaginosis PCR NEGATIVE (Negative); Candida Group PCR NOT DETECTED (Not Detect); Candida glab krusei PCR NOT DETECTED (Not Detect); Trichomonas vaginalis PCR NOT DETECTED (Not Detect)
[2024-04-11 13:23] LABS: CT PCR NOT DETECTED (Not Detect.); NG PCR NOT DETECTED (Not Detect.)
[2024-04-15 18:42] LABS: HPV mRNA E6/E7 Not Detected (Not Detected)
== END 2024-04-11 10:42 | disposition home or self-care (01) ==
LOC: HO.LAB 10:41
PROVIDERS: PCP Internal Medicine Medical Oncology; Visit Provider Advanced Practice Midwife
DX: Z01.419 Encounter for gynecological examination (general) (routine) without abnormal findings (principal); Z11.51 Encounter for screening for human papillomavirus (HPV); N95.0 Postmenopausal bleeding; R35.0 Frequency of micturition; N89.8 Other specified noninflammatory disorders of vagina; R31.9 Hematuria, unspecified
CPT/HCPCS: 0352U; 36415; 81003; 87086; 87491; 87591; 87624; 88175; 99386

== ENCOUNTER 2024-04-11 10:41 | Outpatient (AMB) | payer OTHER, SELFPAY ==
[2024-04-11 10:50] VITALS: BP 142/88; BMI 20.5
--- NOTE | 2024-04-11 10:50 | MHC.OFFVIS ---
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 Appears anxious and concerned, desires to speed up things to get everything done so she can have her bowel surgery. She reports being in constant left lower quadrant severe pain for approximately 2 years. She has concerns: frequency of urination, green discharge-no odor, frequency of urination, postmenopausal bleeding for 2-3 months, pain with intimacy and deep penetration, external irritation-reports frequent wiping and wearing of pads due to discharge. Was treated with an external cream in the past by her PCP. Reports a long history of hematuria. Is due to have bowel surgery due to her chronic pain, medical conditions inflammatory bowel, awaiting medical clearance. Struggling to eat a healthy diet, with calcium and vitamin D. Currently rarely sexually active. STI testing offered; she accepts. Last pap smear; years ago. Last mammogram; not up to date, needs to reschedule. Denies any family history of breast, ovarian or colon cancer. [facility]LY [facility] Medical History Hx of sigmoidoscopy Pyelonephritis Nephrolithiasis Ureterolithiasis Insomnia History of hypertension Tobacco dependence Urinary incontinence Lumbar spinal stenosis Cervical spondylosis Lumbar radiculopathy Fibromyalgia Degenerative joint disease of spine Surgical History H/O colonoscopy History of facial surgery History of salpingectomy History of hip surgery History of right knee surgery Family History (Updated 04/11/24 @ 11:29 by ЕКАТЕРИНА Morrison) Father Esophageal cancer Mother Diabetes mellitus Maternal Grandfather Diabetes mellitus Social History (Updated 04/11/24 @ 10:53 by Jeri M Mendrala, RMA) Household Members: None Household Members Other:: Patient lives by herself Housing: House Do you presently have visiting nurse or other home services: No Alcohol intake: current Alcohol intake frequency: a few times a week Patient Tobacco Use Status: Current everyday Tobacco user Tobacco use type: Cigarette Cigarette Packs Per Day: 1 Cigarettes Per Day: 20.0 Years Smoked: 30 Substance Use Type: Marijuana service: No Sexual orientation: Straight/Heterosexual Gender identity: Female Female Reproductive History Menstrual Menopause type: natural Total pregnancies: 4 Full term: 3 Number of Living Children: 3 Ectopics: 1 History of abnormal pap smear: No Date of Mammogram: 01/09/23 Date of last Bone Density Screenin01/09/23 Review of Systems Const All systems reviewed & are unremarkable except as noted in HPI and below Reports as per HPI Eyes Reports no additional complaints ENT Reports no additional complaints Card Reports no additional complaints Resp Reports no additional complaints GI Reports as per HPI and Reports no additional complaints Reports as per HPI Musc Reports no additional complaints Skin/Breast Reports as per HPI Neuro Reports no additional complaints Psych Reports no additional complaints Endo Reports no additional complaints Raymond/Lymph Reports no additional complaints Aller/Immun Reports no additional complaints Physical Exam Vital Signs: Last Vital Signs BP 142/88 H 04/11/24 10:50 BMI result Body Mass Index 20.5 Const General: cooperative, healthy appearing, no acute distress, well developed and alert Orientation/consciousness: patient oriented x3 HEENT Head: Yes normal to inspection Eyes General: appearance normal, both eyes and all related structures Neck Neck: Yes normal visual inspection Thyroid: Thyroid normal Chest Chest palpation & inspection: normal inspection of the chest and other (no puckering, dimpling, peau de orange, retraction, discharge, masses) Breast/axilla inspection: normal inspection of the breasts Breast/axilla palpation: normal palpation of the breasts Resp Effort & Inspection: normal respiratory effort GI Inspection: Yes normal to inspection Palpation (GI): Soft to palpation, Tenderness to palpation present (GI) in the LUQ and Rigid due to palpation Rectal Exam - Female: deferred Other: Sensitive to speculum insertion and including Q-tip swipe to vaginal rogers reports all uncomfortable. External erythema with labial rash, appears like mechanical irritation from external neyda pads. General: Yes bladder normal to palpation External Female Exam: normal external appearance and normal appearance of the urethra Speculum Exam - Vagina: normal appearance of the vagina, normal palpation, normal vaginal discharge and vagina atrophic Speculum Exam - Cervix: normal appearance of the cervix and normal palpation Bimanual exam- vagina & uterus: normal bimanual exam, normal palpation, uterine size normal, bladder normal to palpation, normal palpation and non-tender Bimanual Exam- Adnexa, other: no masses Skin General skin exam: no rashes or lesions noted Rashes: no rashes Neuro General: patient oriented x3 Cognition (Neuro): normal cognition Extrem General: Yes normal to inspection Psych Attitude: cooperative Thought process: Normal thought process present Results AMB Urinalysis, Automated UA Leukoctes 3 Cathi/uL Last Edit by ЕКАТЕРИНА Morrison on 04/11/24 11:04 UA Nitrite Negative Last Edit by ЕКАТЕРИНА Morrison on 04/11/24 11:04 UA Urobilinogen 0 mg/dL Last Edit by ЕКАТЕРИНА Morrison on 04/11/24 11:04 UA Protein 0 mg/dL Last Edit by ЕКАТЕРИНА Morrison on 04/11/24 11:04 UA pH 6.0 Last Edit by ЕКАТЕРИНА Morrison on 04/11/24 11:04 UA Blood 3 Leopoldo/uL Last Edit by ЕКАТЕРИНА Morrison on 04/11/24 11:04 UA Specific [place] 1.005 Last Edit by ЕКАТЕРИНА Morrison on 04/11/24 11:04 UA Ketone Negative Last Edit by ЕКАТЕРИНА Morrison on 04/11/24 11:04 UA Bilirubin 0 mg/dL Last Edit by ЕКАТЕРИНА Morrison on 04/11/24 11:04 UA Glucose 0 mg/dL Last Edit by ЕКАТЕРИНА Morrison on 04/11/24 11:04 Results Reviewed Results Reviewed: Laboratory Last Values Urine pH (Auto) 6.0 04/11/24 10:59 Specific [place] (Auto) 1.005 04/11/24 10:59 Urine Protein (Auto) 0 mg/dL 04/11/24 10:59 Glucose (UA)(Auto) 0 mg/dL 04/11/24 10:59 Urine Ketones (Auto) Negative 04/11/24 10:59 Urine Blood (Auto) 3 Leopoldo/uL 04/11/24 10:59 Urine Nitrite (Auto) Negative 04/11/24 10:59 Urine Bilirubin (Auto) 0 mg/dL 04/11/24 10:59 Urine Urobilinogen (Auto) 0 mg/dL 04/11/24 10:59 Leukocyte Esterase (Auto) 3 Cathi/uL 04/11/24 10:59 Assessment & Plan Assessment & Plan (1) Encounter for well woman exam with routine gynecological exam: Code(s): Z01.419 - Encounter for gynecological examination (general) (routine) without abnormal findings Category: Medical (2) Postmenopausal bleeding: Code(s): N95.0 - Postmenopausal bleeding (3) Vaginal discharge: Code(s): N89.8 - Other specified noninflammatory disorders of vagina (4) Frequency of urination: Code(s): R35.0 - Frequency of micturition (5) Hematuria: Code(s): R31.9 - Hematuria, unspecified Plan Discussed: Current recommendations for pap smears per ASCCP guidelines. Pap smear obtained today. Breast awareness, periodic self breast exams and yearly mammogram. [facility] her [facility] as soon as possible. Maintain a healthy lifestyle. Cervical and vaginal cultures obtained await results for plan of care. Change neyda pads to different brands to see if the brand is irritating the external labia, and to coat the external region with a thin coat of Vaseline or other topical ointment such as Desitin for now. Urine dip today with leukocytes and blood we will plan to send for culture and initiate antibiotics-Macrobid. Advised to hydrate well mostly water. Workup for postmenopausal bleeding and including pelvic ultrasound and endometrial biopsy. Purpose for the biopsy explained to rule out endometrial cancer. Anticipatory guidance with preparation for testing to include having something to eat drink an hour before her appointment. Patient verbalizes understanding and agrees to the plan of care. She was given opportunity to ask questions and all questions were answered to the best of my ability. 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 This note is constructed using voice recognition software. While every effort has been made to ensure accuracy, allergist/immunologist errors may have been included. Orders: Orders AMB Urinalysis Automated Today R30.0 - Dysuria CT NG by PCR Today N89.8 - Other specified noninflammatory disorders of vagina Urine Culture Today R35.0 - Frequency of micturition Bacterial Vaginosis Panel Today N89.8 - Other specified noninflammatory disorders of vagina PAP + HPV E6/E7 rfx 18/45 Today Z01.419 - Encounter for gynecological examination (general) (routine) without abnormal findings US pelvic and transvaginal Today N95.0 - Postmenopausal bleeding Medications: New nitrofurantoin monohyd/m-cryst 100 mg (Macrobid) must administer with a meal/food 100 mg PO BID 5 days PRN 10 caps 0RF UTI Coding Level of Care Code New Pt Prev Care 40-64y(34337) Diagnoses Encounter for well woman exam with routine gynecological exam Z01.419 Postmenopausal bleeding N95.0 Vaginal discharge N89.8 Frequency of urination R35.0 Hematuria R31.9
== END 2024-04-11 11:32 | disposition home or self-care (01) ==
PROVIDERS: PCP Internal Medicine Medical Oncology; Visit Provider Advanced Practice Midwife
DX: Z01.419 Encounter for gynecological examination (general) (routine) without abnormal findings (principal); N95.0 Postmenopausal bleeding; N89.8 Other specified noninflammatory disorders of vagina; R35.0 Frequency of micturition; R31.9 Hematuria, unspecified; R30.0 Dysuria
CPT/HCPCS: 99386

== ENCOUNTER 2024-04-11 11:24 | Outpatient (REF) | payer OTHER, SELFPAY | END 2024-04-11 11:25 | disposition home or self-care (01) | LOC: HO.LNP 11:24 | PROVIDERS: Visit Provider Advanced Practice Midwife | DX: Z13.89 Encounter for screening for other disorder (principal) ==

== ENCOUNTER 2024-04-15 14:37 | Inpatient (IN) | payer OTHER, SELFPAY ==
[2024-04-15] VITALS (10 sets, daily range): BP systolic 104–140; BP diastolic 61–95; PULSE 78–138; RESP 16–38; TEMP 36.7–37.9; O2SAT 88–96; BMI 20.6
--- NOTE | 2024-04-15 | ECG_ITS ---
Test Reason : LBBB Blood Pressure : / mmHG Vent. Rate : 076 BPM Atrial Rate : 076 BPM P-R Int : 170 ms QRS Dur : 090 ms QT Int : 454 ms P-R-T Axes : 044 043 -71 degrees QTc Int : 510 ms Normal sinus rhythm ST & Marked T wave abnormality, consider anterior ischemia or T wave memory Prolonged QT Abnormal ECG When compared with ECG of 15-APR-2024 15:53, Left bundle branch block is no longer Present Referred By: Yoni Mitchell Electronically Signed By:YUKI ESPINOZA MD
--- NOTE | ~2024-04-15 | CT_ITS ---
EXAMINATION: CT ABDOMEN AND PELVIS WITH CONTRAST CLINICAL INFORMATION: Abdominal discomfort with question of diverticulitis COMPARISON: CT abdomen pelvis 05/21/2023 TECHNIQUE: Multidetector volumetric images were obtained from the superior aspect of the liver through the pubic symphysis following administration 85 mL of Omnipaque 350 intravenous contrast. Sagittal and coronal reformatted images were obtained on the technologist's workstation. Oral contrast: No This CT examination was performed using dose optimization techniques as appropriate, variously including the following: *Automated exposure control *Adjustment of mA and/or kV according to patient size (this includes techniques or standardized protocols for targeted exams where dose is matched to indication/reason for exam; i.e. extremities or head) *Use of iterative reconstruction technique DLP: 328 mGy-cm FINDINGS: LUNG BASES: See report of chest CT same day LIVER, GALLBLADDER, AND BILIARY TREE: The liver is normal in size, shape, and attenuation. No focal hepatic lesion or biliary ductal dilatation is present. The gallbladder is unremarkable with no evidence of radiopaque gallstones, gallbladder wall thickening, or obvious pericholecystic inflammatory changes. PANCREAS: Unremarkable. SPLEEN: Unremarkable. ADRENAL GLANDS: Unremarkable. KIDNEYS AND URETERS: The kidneys are normal in size, shape, and attenuation. No hydronephrosis, hydroureter, or calculi seen. No perinephric stranding. BLADDER: Unremarkable. GASTROINTESTINAL TRACT: Again seen is marked thickening of the sigmoid with extensive diverticular changes. No extraluminal air or drainable fluid collections are seen. There is a structure in the left adnexa abutting this which appears somewhat tubular. This may be a dilated tube with enhancing wall, possibly hydro-/pyosalpinx. A small amount of fluid surrounds this region. The appendix is normal. There is no evidence of small bowel obstruction. A lipoma may be present in the small bowel (13:42). ABDOMINAL WALL: No significant hernia is appreciated. LYMPH NODES: No retroperitoneal lymphadenopathy. VASCULAR: Calcific atherosclerotic changes are present in the aorta and iliac vessels in a Leriche-type pattern. Is this patient a smoker ? There is no evidence of an abdominal aortic aneurysm. PELVIC VISCERA: Please see discussion above regarding question of left-sided hydro-/pyosalpinx. Uterus is difficult to see secondary to abutting surrounding bowel OSSEOUS STRUCTURES: Degenerative changes in the spine predominantly at L4-S1 with grade 1 anterolisthesis of L4 upon L5. CT/CT abdomen pelvis w IV con IMPRESSION: 1. Marked thickening of the sigmoid with extensive diverticular changes. No extraluminal air or drainable fluid collections are seen. Findings could represent mild diverticulitis. Similar appearances have been seen in the past. 2. There is a structure in the left adnexa which appears somewhat tubular. This may be a dilated tube with enhancing wall, possibly hydro-/pyosalpinx. Transabdominal and more importantly endovaginal pelvic ultrasound is recommended for further evaluation. 3. Other incidental findings as described above. Fleischner guidelines were followed.
--- NOTE | ~2024-04-15 | CT_ITS ---
EXAMINATION: CT ANGIOGRAM OF THE CHEST WITH AND WITHOUT CONTRAST (CT PULMONARY ANGIOGRAM FOR PE) CLINICAL INFORMATION: dyspnea, elevated ddimer COMPARISON: Chest radiograph earlier today CT abdomen pelvis 03/28/2023. TECHNIQUE: Prior to contrast administration, noncontrast localization images were obtained. Subsequently, multidetector volumetric imaging was performed from the thoracic inlet to below the diaphragms following the administration of 85 mL Omnipaque 350 intravenous contrast. No contrast reaction reported Sagittal, coronal, and MIP oblique sagittal reformatted images were obtained on the CT workstation, uploaded to PACS, and reviewed. This CT examination was performed using dose optimization techniques as appropriate, variously including the following: *Automated exposure control *Adjustment of mA and/or kV according to patient size (this includes techniques or standardized protocols for targeted exams where dose is matched to indication/reason for exam; i.e. extremities or head) *Use of iterative reconstruction technique Total exam dose-length product 266 mGy-cm FINDINGS: QUALITY OF STUDY/CONTRAST BOLUS: Satisfactory. PULMONARY ARTERIES: No pulmonary emboli. THORACIC AORTA: No aneurysm. LUNG: There is interstitial prominence and Niyah B-lines. There are dependent infiltrates and groundglass changes at the lung bases, right greater than left. These findings are new when compared to the lung bases on the 03/28/2023 study. A calcified granuloma noted at the right lung base. PLEURA: No pleural effusion or pneumothorax. MEDIASTINUM: The left lobe of the thyroid is either quite small or absent. Normal heart size. No pericardial effusion. No hilar or mediastinal lymphadenopathy. No evidence of septal bowing or right heart strain. CORONARY ARTERY CALCIFICATION: None visualized on this study. CHEST WALL/AXILLA: No axillary or internal mammary lymphadenopathy. OSSEOUS STRUCTURES: No acute or suspicious osseous abnormality. UPPER ABDOMEN: Unremarkable. No reflux of contrast into the hepatic veins to suggest elevated right heart pressures. CT/CT angio chest PE protocol IMPRESSION: 1. No evidence of pulmonary emboli. 2. Interstitial prominence with Niyah B-lines and dependent infiltrates and groundglass changes at the lung bases, right greater than left. Findings are suggestive of interstitial and alveolar pulmonary edema. Infectious etiologies would be another possibility although considered to be much less likely VTE: negative.
--- NOTE | ~2024-04-15 | US_ITS ---
EXAMINATION: ULTRASOUND PELVIC, COMPLETE CLINICAL INFORMATION: Pelvic pain. History of right-sided salpingectomy COMPARISON: CT abdomen pelvis April 15, 2024. Pelvic ultrasound January 30, 2023 TECHNIQUE: Transvaginal: Used to better visualize pelvic structures Transabdominal: Not adequate for visualization. Spectral Doppler and color Doppler exam was utilized. LMP: Postmenopausal FINDINGS: Exam limited by bowel. There is a large fluid-filled loop of bowel in the left adnexal area. There is left-sided tenderness. UTERUS: Unremarkable. Uterus is retroverted and retroflexed. Uterus measures 6.2 x 1.9 x 4.1 cm. Endometrial thickness 0.2 cm ADNEXA: Ovarian vascularity:Doppler demonstrates both arterial and venous vascular flow in the right and left ovary. No evidence of ovarian torsion. Right Ovary: 2.1 x 0.8 x 2.1 cm. Volume 1.8 mL. Left Ovary: Left ovary measures 4.6 x 2.6 x 2.6 cm. Volume 15.7 mL. Anechoic follicle/cyst measuring 2.1 x 1.6 x 1.4 cm. There is a corpus luteum cyst with hypervascular rim in the ovary measuring 1 cm. Adjacent to the left ovary the left adnexa is a thick-walled structure with fluid centrally. The rogers hypervascular on color Doppler. This measures approximately 2.6 x 2.8 x 1.5 cm. This correlates to the rim-enhancing structure in the left adnexa on CT abdomen pelvis April 15, 2024. Given the acute process of the adjacent sigmoid colon colon this is likely a small abscess in the pelvis. A tubo-ovarian abscess is less likely. Cul-de-sac: No Fluid US/US pelvic and transvaginal IMPRESSION: 1. Normal ultrasound of uterus. 2. Normal right and left ovary. 3. Thick-walled hypervascular structure in the left adnexa measuring 2.6 x 2.8 x 1.5 cm. This correlates to the rim-enhancing structure in the left adnexa on CT abdomen pelvis April 15, 2024. Given the acute process of the adjacent sigmoid colon, this is likely a small abscess in the pelvis. A tubo-ovarian abscess is less likely.
--- NOTE | ~2024-04-15 | XR_ITS ---
EXAMINATION: XR CHEST CLINICAL INFORMATION: Chest pain COMPARISON: None available TECHNIQUE: Frontal view of the chest was obtained. FINDINGS: There is some mild reticular nodular densities seen at right lung base. No consolidations with air bronchograms are seen. No other abnormality is noted involving the heart, lungs, mediastinum, bony thorax or soft tissues. XR/XR chest 1V IMPRESSION: Mild reticular nodular densities right lung base. No prior studies are available for comparison to assess if this is a chronic finding.
--- NOTE | 2024-04-15 14:39 | ECG_ITS ---
Test Reason : palpitations,sob Blood Pressure : / mmHG Vent. Rate : 140 BPM Atrial Rate : 140 BPM P-R Int : 144 ms QRS Dur : 130 ms QT Int : 328 ms P-R-T Axes : 051 -20 102 degrees QTc Int : 500 ms Sinus tachycardia Left bundle branch block Abnormal ECG When compared with ECG of 13-APR-2006 10:16, Vent. rate has increased BY 77 BPM Left bundle branch block is now Present Referred By: Danielle Sibley Electronically Signed By:YUKI ESPINOZA MD
[2024-04-15 15:14] LABS: MANUAL DIFF FLAG NO
[2024-04-15] MEDS: Metoprolol Tartrate 5 MG/5 ML VIAL IVPUSH (15:18)
[2024-04-15 15:19] LABS: Basophils Absolute Auto 0.1 X10*3/uL (0.0-0.2); Basophils Percent Auto 0.4 % (0-2); Eosinophils Absolute Auto 0.3 X10*3/uL (0.0-0.4); Hematocrit 45.1 % (37.0-47.0); Hemoglobin 16.7 g/dl (12.0-16.0); Imm Gran Abs Auto 0.06 X10*3/uL (0.00-0.03); Imm Gran Pct Auto 0.5 % (0.0-0.4); Lymphocytes Absolute Auto 0.7 X10*3/uL (1.2-4.9); Lymphocytes Percent Auto 5.6 % (20-40); Mean Corpuscular Hemoglobin 35.1 pg (27.0-33.0); Mean Corpuscular Volume 94.7 fL (80.0-98.0); Mean Platelet Volume 9.2 fL (9.4-12.3); Monocytes Percent Auto 7.9 % (2-11); Neutrophils Absolute Auto 10.6 x10*3/uL (2.0-8.3); Neutrophils Percent Auto 83.6 % (45-73); Platelet Count 196 X10*3/uL (160-400); Red Blood Count 4.76 X10*6/uL (4.20-5.50); Red Cell Distribution Width 12.6 % (11.0-16.0); White Blood Count 12.7 X10*3/uL (4.8-10.8)
[2024-04-15 15:34] LABS: Alanine Aminotransferase 16 U/L (0-31); Albumin Level 4.1 g/dL (3.5-5.0); Alkaline Phosphatase 77 U/L (39-117); Anion Gap 15 (12-20); Aspartate Amino Transferase 19 U/L (5-31); Bilirubin Total 1.2 mg/dL (0.0-1.0); Blood Urea Nitrogen 8 mg/dL (9-16); Calcium 10.2 mg/dL (8.4-10.2); Carbon Dioxide 23 mmol/L (22-29); Chloride 95 mmol/L (96-108); Creatinine Clr Calc Pharmacy 79.8; Estimated Glomerular Filt Rate > 60; Glucose Random 120 mg/dL (60-115); Potassium 2.9 mmol/L (3.3-5.1); Sodium 130 mmol/L (135-145); Total Protein 8.3 g/dL (6.5-8.0)
[2024-04-15 15:38] LABS: Troponin-I High Sensitivity 5.9 ng/L (<3.5-17.0)
--- OUTSIDE RECORDS SUMMARY | 2024-04-15 15:41 | XMS_ITS ---
Author Organization Paresh Strong III, MD Address [address] [address] Care Team Providers Care Director Internal Control Name Role Phone Paresh Strong Primary Care Provider [phone] REASON FOR VISIT Vaginal area rash SOCIAL HISTORY Sex Assigned At : Social History Observation Description Sex Assigned At Female Encounters Encounter Location Date Provider Diagnosis Paresh Strong III, MD [address] [place] [address] [place] [address] 02/21/2024 Paresh Strong UTI symptoms R39.9 ASSESSMENTS Encounter Date Diagnosis Assessment Notes Treatment Notes Treatment Clinical Notes 02/21/2024 UTI symptoms (ICD-10 - R39.9) PLAN OF TREATMENT Pending Test Test Name Order Date URINALYSIS (UA) 02/21/2024 URINE CULTURE 02/21/2024 Next Appt Details Provider Name:Paresh Strong, 04/17/2024 11:15:00 AM, [address] [place] [address] [place], [address], Provider Name:Paresh Strong, 11/20/2024 11:00:00 AM, [address] [place] [address] [place], [address],
--- OUTSIDE RECORDS SUMMARY | 2024-04-15 15:41 | XMS_ITS ---
Author Organization Paresh Strong III, MD Address [address] [place] [address] [address] Care Team Providers Care Roustabout Name Role Phone Paresh Strong Primary Care Provider ALLERGIES Allergen (clinical drug ingredient) Drug/Non Drug Allergy documented on EMR Reaction Allergy Type Onset Date Status amoxicillin / clavulanate Augmentin vomiting Drug Allergy Active REASON FOR VISIT Diverticulitis, Postmenopausal bleeding, Lumbar radiculopathy, Hypertension, Ureterolithiasis, Hyperlipidemia, Tobacco dependence MEDICATIONS Medication SIG (Take, Route, Frequency, Duration) Notes Start Date End Date Status metroNIDAZOLE 500 MG TAKE ONE TABLET BY MOUTH EVERY 8 HOURS FOR 7 DAYS Oral Active Vitamin D3 25 MCG (1000 UT) TAKE ONE TAB LET BY MOUTH EVERY DAY Active Myrbetriq 50 MG TAKE ONE TABLET BY M OUTH EVERY DAY Oral Active levoFLOXacin 500 MG TAKE ONE TABLET BY M OUTH EVERY DAY Oral Active Calcium 500 MG as directed Orally T wice a 01/15/2023 Active SOCIAL HISTORY Tobacco Use: Social History Observation Description Date Details (start date - stop date) Current Smoker NA - NA Sex Assigned At : Social History Observation Description Sex Assigned At Female Tobacco Use/Smoking Question Answer Notes Patient is a current smoker How often do you smoke cigarettes? every day How many cigarettes a day do you smoke? 11-20 How soon after you wake up d o you smoke your first cigarette? 6-30 minutes Are you interested in quitting? Not ready to anthony t Additional Findings: Tobacco User Heavy cigarett e smoker (20-39 cigs/day) PROBLEMS Problem Type ICD Code Onset Dates Problem Status W/U Status Risk SNOMED Code Notes Problem Diverticulitis (K57.92) Active confirmed [id number] The condition has become chronic and she is scheduled for resection of the sigmoid colon April 11, 2024. There is no contraindication surgery. She is medically cleared for the procedure. VITAL SIGNS BMI 20.67 kg/m2 03/25/2024 Blood pressure systolic 131 mm Hg 03/25/20 24 Blood pressure diastolic 83 mm Hg 024 Heart Rate 93 /min 03/25/2024 Height 62 in 03/25/2024 Temperature 97.7 degrees Fahrenheit 03/25/20 24 Weight 113 lbs 03/25/2024 Encounters Encounter Location Date Provider Diagnosis Paresh Strong III, MD [address] [place] [address] [place] [address] 03/25/2024 Paresh Strong Essential hypertensi on I10 ; Diverticulitis K57.92 ; Degenerative disc disease at L5-S1 level M51.37 ; Urinary incontinence R32 ; Cervical spondylosis M47.812 ; Lumbar radiculopathy M54.16 ; Spinal stenosis of lumbar region, unspecified whether neurogenic claudication present M48.061 ; Tobacco dependence F17.200 ; Hyperlipidemia E78.5 and Vitamin D deficiency E55.9 ASSESSMENTS Encounter Date Diagnosis Assessment Notes Treatment Notes Treatment Clinical Notes 03/25/2024 Essential hypertension (ICD-10 - I10) Her blood pressure today is 131/83 and no change in her regimen was made. 03/25/2024 Diverticulitis (ICD-10 - K57.92) The condition has become chronic and she is scheduled for resection of the sigmoid colon April 11, 2024. There is no contraindication surgery. She is medically cleared for the procedure. 03/25/2024 Degenerative disc disease at L5-S1 level (ICD-10 - M51.37) She has had several MRIs in the past for ppain like this. She has done nothing she can think of to cause this exacerbation. 03/25/2024 Urinary incontinence (ICD-10 - R32) She has been to see urology and had the cystoscopy. Apparently there were no significant findings. We have requested the note. She has had no hematuria. 03/25/2024 Cervical spondylosis (ICD-10 - M47.812) She has chronic pain with range of motion of the neck. There is no radiculopathy. 03/25/2024 Lumbar radiculopathy (ICD-10 - M54.16) She is experiencing a flareup of the pain, likely due to nerve impingement from a disc. An MRI has been ordered and a surgical consultation may be necessary. She is gooing to use heat and rest and ibuprofen at this time. Dexamethasone will be added. If the pain does not improve rapidly. 03/25/2024 Spinal stenosis of lumbar region, unspecified whether neurogenic claudication present (ICD-10 - M48.061) She will refrain from heavy lifting. If necessary, she will see surgery. 03/25/2024 Tobacco dependence (ICD-10 - F17.200) She has been seen by the gastroenterology consult nontender evaluation is in progress. 03/25/2024 Hyperlipidemia (ICD-10 - E78.5) Comprehensive blood work with a fasting lipid profile will be done tomorrow morning. 03/25/2024 Vitamin D deficiency (ICD-10 - E55.9) Vitamin D supplementation was discussed today. I recommended 1000 units daily. PLAN OF TREATMENT Medication Medication Name Sig Start Date Stop Date Notes metroNIDAZOLE 500 MG TAKE ONE TABLET BY MOUTH EVERY 8 HOURS FOR 7 DAYS Oral Vitamin D3 25 MCG (1000 UT) TAKE ONE TAB LET BY MOUTH EVERY DAY Myrbetriq 50 MG TAKE ONE TABLET BY M OUTH EVERY DAY Oral levoFLOXacin 500 MG TAKE ONE TABLET BY M OUTH EVERY DAY Oral Calcium 500 MG as directed Orally Twice a day 01/15/2023 Next Appt Details Follow Up: 4 Weeks, Reason: Office visit Provider Name:Paresh Strong, 04/17/2024 11:15:00 AM, [address] [place] [address] [address], [place], [address], Provider Name:Paresh Strong, 11/20/2024 11:00:00 AM, [address] [place] [address] [address], [place], [address], Progress Notes * Examination Category Sub-Category Detail Notes General Examination GENERAL APPEARANCE: pleasant , well nourished, well developed, in no acute distress, calm and relaxed , woman HEAD: atraumatic, normocep halic EYES: eomi, perrla, anicte china, conjugate EARS: normal NOSE: septum intact NECK/THYROID: no jugular venous di stention, no carotid bruit, thyroid normal HEART: no clicks, gallops, murmurs, or rubs, regular rhythm, S1, S2 normal, no s3, or vascular bruits LUNGS: clear to auscultatio n ABDOMEN: bowel sounds normal, no ascites, no organomegaly, no mass, Tenderness left lower quadrant NEUROLOGIC: alert and oriented, cranial nerves 2-12 grossly intact, deep tendon reflexes 2+ symmetrical, motor strength normal upper and lower extremities, sensory exam intact SKIN: no suspicious lesion s, anicteric PERIPHERAL PULSES: normal BREASTS: not examined MUSCULOSKELETAL: extremities unremark able, no clubbing, cyanosis or edema LYMPH NODES: no enlarged lymph no ami,spleen normal RECTAL EXAM: not examined PSYCH: alert, oriented , co gnitive function intact , cooperative with exam , good eye contact , speech clear , thought process logical, goal directed ORAL CAVITY: normal, unremarkable History and Physical Notes * HPI (History of Present Illness) Category Sub-Category Detail Notes COVID-19 Screening Questions Have you expe rienced fever, chills, cough, sore throat, shortness of breath, difficulty breathing, muscle aches, loss of taste or smell?: No Have you been exposed to the virus withi n the last 10 days?: No Have you travelled internationally in last 10 days?: No Have you been exposed to COVID-19 in the past?: No
--- OUTSIDE RECORDS SUMMARY | 2024-04-15 15:41 | XMS_ITS ---
Author Organization Paresh Strong III, MD Address [address] [place] [address] Care Team Providers Care Precision Farming Specialist Name Role Phone Paresh Strong Primary Care Provider [phone] MEDICATIONS Medication SIG (Take, Route, Frequency, Duration) Notes Start Date End Date Status Sulfamethoxazole-Trimethop rim 800-160 MG 1 tablet Orally twice a day for 7 days 02/21/2024 02/28/2024 Active Fluconazole 100 MG 1 tablet Orally chris y for 2 days 02/21/2024 02/23/2024 Active SOCIAL HISTORY Sex Assigned At : Social History Observation Description Sex Assigned At Female Encounters Encounter Location Date Provider Diagnosis Paresh Strong III, MD [address] [place] [address] [place] [address] 02/21/2024 Paresh Strong PLAN OF TREATMENT Medication Medication Name Sig Start Date Stop Date Notes Sulfamethoxazole-Trimethopri m 800-160 MG 1 tablet Orally twice a day for 7 days 02/21/2024 02/28/2024 Fluconazole 100 MG 1 tablet Orally chris y for 2 days 02/21/2024 02/23/2024 Next Appt Details Provider Name:Paresh Strong, 04/17/2024 11:15:00 AM, [address] [facility] [place], [address], Provider Name:Paresh Strong, 11/20/2024 11:00:00 AM, [address] [facility] [place], [address],
--- NOTE | 2024-04-15 15:42 | CA_ITS ---
Transthoracic Echocardiogram Patient (Last, First, Middle): Cathie Arguello, Gender: Female Date of : 1965 Age: 58 Procedure Date: 04/15/2024 Procedure Type: Transthoracic Echocardiogram Location: ER Height: 157.48 cm Weight: 50.8 kg BSA: 1.49 m2 Heart Rate: 117 bpm BP: 123 / 79 mmHg Saw Offbearer: BRAYDEN Cramer MD: Shayne Carmichael MD Supervisor Patching: Rufus Grewal MD Symptoms: indication: dyspnea Study Quality: Fair ECG Rhythm: Atrial flutter Conclusions: - 1. Moderately reduced LV ejection fraction at 35-40% with impaired relaxation filling pattern 2. Normal cardiac valvular Doppler Findings Left Ventricle Normal left ventricular cavity size. There is normal left ventricular wall thickness. The left ventricular systolic function is moderately decreased. The visually estimated ejection fraction is between 35-40%. There is moderate global hypokinesis. There is paradoxical septal motion consistent with a left bundle branch block. Spectral Doppler is indicative of an impaired relaxation filling pattern. E/E prime ratio is between 8 and 15 consistent with indeterminate filling pressures. Right Ventricle Normal right ventricular cavity size and systolic function. Atria The left atrium is normal in size. There is no evidence of interatrial shunt. The right atrium is normal in size. Aortic Valve Normal aortic valve structure and function. There is no aortic valve stenosis. There is no aortic valve regurgitation. Mitral Valve Normal mitral valve structure and function. There is trace mitral valve regurgitation. There is no mitral valve stenosis. Pulmonic Valve The pulmonic valve is likely normal. Tricuspid Valve Likely normal tricuspid valve structure and function. Tricuspid regurgitation envelope is inadequate for calculation of right ventricular systolic pressure. Low right atrial pressure. Great Vessels All visible segments of the aorta are normal in size. The pulmonary artery was not well visualized. Venous The inferior vena cava is collapsed, consistent with reduced intravascular volume. Pericardium/Pleural There is no evidence of pericardial effusion. Prior Study Comparison No prior study available for comparison. Measurements 2D Linear Measurements IVSd: 1.00 0.6-0.9/0.6-1.0 cm LVIDd: 4.61 3.9-5.3/4.2-5.9 cm LVIDd Index: 3.09 2.4-3.2/2.2-3.1 cm/m2 LVIDs: 3.49 2.0-3.6 cm LVPWd: 0.90 0.7-1.1 cm LA Diam: 2.80 2.7-3.8/3.0-4.0 cm LAIDs Index: 1.88 1.5-2.3 cm/m2 LV Mass: 184.77 67-162/88-224 g LV Mass Index: 124.01 43-95/49-115 g/m2 LVOT Diam: 1.90 3.0+(-)1.3 cm 2D Systolic Function EF 4C: 36.50 >55% EF 2C: 36.70 >55% EF BiP: 35.50 >55% Mitral Valve E'Lateral: 9.25 E'Medial: 4.13 Aortic Valve AoV Pk Jeramy: 1.63 AoV Mn Jeramy: 1.15 AoV VTI: 0.21 AoV Pk Grad: 11.00 Aov Mn Grad: 6.00 CHRISTIANNE Cont.VTI: 1.69 LVOT LVOT Pk Jeramy: 1.03 LVOT Mn Jeramy: 0.79 LVOT VTI: 0.13 LVOT Pk Grad: 4.00 LVOT Mn Grad: 3.00 LVOT Diam: 1.90 LVOT Area: 2.84 Diastolic Function E'Medial: 4.13 E' Laterial: 9.25 Right Ventricle TAPSE (mm): 13.10 TVS' Jeramy: 11.10 Tricuspid Valve RA Press: 3.00 Great Vessels Aorta Sinus of Valsalva: 3.10 2.0-3.5 cm Ao Asc: 3.50 2.1-3.4 cm Pulmonary Valve PV Pk Jeramy: 1.06 Peak PV Grad: 4.00 Updated in Other Vendor System with Status of Final Rufus Grewal MD electronically signed on 04/15/2024 5:07:29 PM with status of Final
--- OUTSIDE RECORDS SUMMARY | 2024-04-15 15:42 | XMS_ITS | Patient Health Record ---
Author Organization Paresh Strong III, MD Address [address] [place] [address] Care Team Providers Care Renal Medicine Physician Name Role Phone Paresh Strong Primary Care Provider [phone] ALLERGIES Allergen (clinical drug ingredient) Drug/Non Drug Allergy documented on EMR Reaction Allergy Type Onset Date Status amoxicillin / clavulanate Augmentin vomiting Drug Allergy Active RESULTS Component Value Reference Range Notes SCREENING COLONOSCOPY Reviewed date:01/04/2024 04:41:07 AM Interpretation:undefined Performing Lab: Notes/Report: undefined Pathology Reviewed date:05/07/2023 05:10:23 AM Interpretation: Performing Lab:[facility], [address] [place] [phone] Notes/Report: Complete Blood Count Auto Di ff Reviewed date:05/22/2023 11:12:45 AM Interpretation: Performing Lab:[facility], [address] [place] [phone] Notes/Report: White Blood Count 9.7 4.8-10.8 X10*3/uL Red Blood Count 4.10 4.20-5.50 X10*6/uL Hemoglobin 14.6 12.0-16.0 g/dl Hematocrit 41.1 37.0-47.0 % Mean Corpuscular Volume 100.2 80.0-98.0 fL Mean Corpuscular Hemoglobin 35.6 27.0-33.0 pg Mean Corpuscular HGB Conc 35.5 31.0-35.0 g/dl Red Cell Distribution Width 12.1 11.0-16.0 % Platelet Count 235 160-400 X10*3/uL Mean Platelet Volume 8.4 9.4-12.3 fL Neutrophils Percent Auto 54.5 45-73 % Imm Gran Pct Auto 0.7 0.0-0.4 % Lymphocytes Percent Auto 29.9 20-40 % Monocytes Percent Auto 11.3 2-11 % Eosinophils Percent Auto 3.0 0-4 % Basophils Percent Auto 0.6 0-2 % NRBC Pct Auto 0.0 0.0-0.2 /100WBC Neutrophils Absolute Auto 5.3 2.0-8.3 x10*3/u L Imm Gran Abs Auto 0.07 0.00-0.03 X10*3/uL Lymphocytes Absolute Auto 2.9 1.2-4.9 X10*3/u L Monocytes Absolute Auto 1.1 0.1-1.2 X10*3/uL Eosinophils Absolute Auto 0.3 0.0-0.4 X10*3/u L Basophils Absolute Auto 0.1 0.0-0.2 X10*3/uL NRBC Abs Auto 0.000 0.0-0.012 X10*3/uL Prothrombin Time INR Reviewed date:05/22/2023 11:12:45 AM Interpretation: Performing Lab:[address] [phone] Notes/Report: Prothrombin Time 11.0 11.1-13.3 SEC INTERNATIONAL NORM RATIO 0.9 0.9-1.1 INTERNATIONAL NORMALIZED RATIO (INR) REFERENCE RANGES Reference Range For patients not on anticoagulant therapy: 0.9 - 1.1 INR ranges for oral anticoagulant therapy: For prevention and treatment of venous thrombosis and pulmonary embolism: 2.0 - 3.0 For acute myocardial infarction with aspirin therapy: 2.0 - 3.0 For acute myocardial infarction without aspirin therapy: 3.0 - 4.0 For patients with mechanical prosthetic heart valves: 2.5 - 3.5 Partial Thromboplastin Time Reviewed date:05/22/2023 11:12:45 AM Interpretation: Performing Lab:[address] [phone] Notes/Report: Partial Thromboplastin Time 32.9 26.0-36.4 SEC OBSX1 Reviewed date:05/22/2023 11:12:45 AM Interpretation: Performing Lab:[address] [phone] Notes/Report: OBS1 NEGATIVE NEGATIVE Liver Panel Reviewed date:05/22/2023 11:12:45 AM Interpretation: Performing Lab:[facility], [address] [place] [phone] Notes/Report: Bilirubin Total 0.4 0.0-1.0 mg/dL Bilirubin Direct 0.2 0.0-0.5 mg/dL Aspartate Amino Transferase 27 5-31 U/L Alanine Aminotransferase 21 0-31 U/L Total Protein 7.7 6.5-8.0 g/dL Albumin Level 4.2 3.5-5.0 g/dL Alkaline Phosphatase 86 39-117 U/L Basic Metabolic Panel Reviewed date:05/22/2023 11:12:45 AM Interpretation: Performing Lab:[address] [phone] Notes/Report: Sodium 127 135-145 mmol/L Potassium 3.6 3.3-5.1 mmol/L Chloride 94 96-108 mmol/L Carbon Dioxide 22 22-29 mmol/L Anion Gap 15 12-20 Blood Urea Nitrogen < 3 9-16 mg/dL Creatinine 0.54 0.5-1.4 mg/dL Creatinine Clr Calc Pharmacy 91.0 Provided height and weight: 160.02 cm, 50.802 kg. eGFR (calculated from the MDRD study equation) and eCrCl (calculated from the Cockcroft-Gault equation) are based on different parameters and may not yield comparable results. If eCrCl result is absurd, please check patient's height/weight. Estimated Glomerular Filt Rate > 60 NOTE: For -[place] individuals, multiply the result by 1.210. Chronic Kidney Disease: Estimated GFR < 60 mL/min/1.73m2 Severe Kidney Disease: Estimated GFR < 15 mL/min/1.73m2 Glucose Random 82 60-115 mg/dL Calcium 9.6 8.4-10.2 mg/dL Osmolality, Serum Reviewed date:05/22/2023 11:12:45 AM Interpretation: Performing Lab:[facility], [address] [place] [phone] Notes/Report: Osmolality, Serum 271 281-305 mosm/kg Magnesium Reviewed date:05/22/2023 11:12:45 AM Interpretation: Performing Lab:[facility], [address] [place] [phone] Notes/Report: Magnesium 1.7 1.6-2.6 mg/dL Osmolality Urine Reviewed date:05/22/2023 11:12:45 AM Interpretation: Performing Lab:[facility], [address] [place] [phone] Notes/Report: Osmolality Urine 438 306-5373 mosm/kg Sodium Urine Random Reviewed date:05/22/2023 11:12:45 AM Interpretation: Performing Lab:[facility], [address] [place] [phone] Notes/Report: Sodium Urine Random 24.0 CT abdomen pelvis w con Reviewed date:05/22/2023 11:12:45 AM Interpretation: Performing Lab: Notes/Report: [address] [address] [address] Scan Report Signed Patient: Cathie Arguello MR#: [id number] 0 : 1965 Acct:[id number] Age/Sex: 57 / F ADM Date: 05/21/23 Loc: HO.ED Attending Dr: Ordering Physician: Funmilayo Lancaster MD Date of Service: 05/21/23 Procedure(s): CT abdomen pelvis w IV con Accession Number(s): [id number] cc: Paresh Strong MD; Funmilayo Lancaster MD EXAMINATION: CT ABDOMEN AND PELVIS WITH CONTRAST CLINICAL INFORMATION: LLQ pain rectal bleeding 2 weeks s/p colonoscopy COMPARISON: 03/28/2023 TECHNIQUE: Multidetector volumetric imaging was performed from the superior aspect of the liver through the pubic symphysis following administration of 85 mL Omnipaque 300 intravenous contrast. Sagittal and coronal reformatted images were obtained on the technologist workstation.. This CT examination was performed using dose optimization techniques as appropriate, variously including the following: *Automated exposure control *Adjustment of mA and/or kV according to patient size (this includes techniques or standardized protocols for targeted exams where dose is matched to indication/reason for exam; i.e. extremities or head) *Use of iterative reconstruction technique DLP: 300 mGy-cm FINDINGS: LUNG BASES: Interval dependent atelectasis and lower lobe calcified granuloma. LIVER, GALLBLADDER, AND BILIARY TREE: Mild diffuse fatty infiltration of the liver but no focal hepatic lesion nor biliary ductal dilatation. The gallbladder is unremarkable with mild gallbladder fundal fold but no evidence of radiopaque gallstones, gallbladder wall thickening, or obvious pericholecystic inflammatory changes. PANCREAS: Unremarkable. SPLEEN: Unremarkable. ADRENAL GLANDS: Unremarkable. KIDNEYS AND URETERS: The kidneys are normal in size, shape, and attenuation. No hydronephrosis, hydroureter, or calculi seen. No perinephric stranding. BLADDER: Unremarkable. GASTROINTESTINAL TRACT: Although decompressed there is rectal wall thickening concerning for focal proctitis. This area appeared more normal on the prior 03/28/2023 examination. Colonic diverticulosis more so in the sigmoid colon. No obstructive changes noted. Normal-appearing appendix in the right lower quadrant. Visualized small bowel unremarkable ABDOMINAL WALL: No significant hernia is appreciated. LYMPHOVASCULAR STRUCTURES: Vascular calcification within the aorta iliac system. No bulky adenopathy PELVIC VISCERA: Unremarkable. OSSEOUS STRUCTURES: Degenerative changes in the spine more so at L4/L5 and L5/S1. CT/CT abdomen pelvis w IV con IMPRESSION: Although decompressed there is rectal wall thickening with perirectal inflammatory change concerning for focal proctitis. This area appeared more normal on the prior 03/28/2023 examination. Colonic diverticulosis but no obvious diverticulitis. Dictated By: Wilder Powers MD Signed By: <Electronically signed by Wilder Powers MD in OV> 05/21/23 1816 DD/ 1731 TD/TT: Hay Baler: NEELAM Complete Blood Count Auto Di ff Reviewed date:05/22/2023 11:12:45 AM Interpretation: Performing Lab:[facility], [address] [place] [phone] Notes/Report: White Blood Count 8.3 4.8-10.8 X10*3/uL Red Blood Count 3.92 4.20-5.50 X10*6/uL Hemoglobin 13.8 12.0-16.0 g/dl Hematocrit 39.4 37.0-47.0 % Mean Corpuscular Volume 100.5 80.0-98.0 fL Mean Corpuscular Hemoglobin 35.2 27.0-33.0 pg Mean Corpuscular HGB Conc 35.0 31.0-35.0 g/dl Red Cell Distribution Width 12.3 11.0-16.0 % Platelet Count 227 160-400 X10*3/uL Mean Platelet Volume 8.6 9.4-12.3 fL Neutrophils Percent Auto 61.5 45-73 % Imm Gran Pct Auto 0.4 0.0-0.4 % Lymphocytes Percent Auto 22.0 20-40 % Monocytes Percent Auto 12.5 2-11 % Eosinophils Percent Auto 3.1 0-4 % Basophils Percent Auto 0.5 0-2 % NRBC Pct Auto 0.0 0.0-0.2 /100WBC Neutrophils Absolute Auto 5.1 2.0-8.3 x10*3/u L Imm Gran Abs Auto 0.03 0.00-0.03 X10*3/uL Lymphocytes Absolute Auto 1.8 1.2-4.9 X10*3/u L Monocytes Absolute Auto 1.0 0.1-1.2 X10*3/uL Eosinophils Absolute Auto 0.3 0.0-0.4 X10*3/u L Basophils Absolute Auto 0.0 0.0-0.2 X10*3/uL NRBC Abs Auto 0.000 0.0-0.012 X10*3/uL Basic Metabolic Panel Reviewed date:05/22/2023 11:12:45 AM Interpretation: Performing Lab:[facility], [address] [place] [phone] Notes/Report: Sodium 135 135-145 mmol/L Potassium 3.7 3.3-5.1 mmol/L Chloride 101 96-108 mmol/L Carbon Dioxide 26 22-29 mmol/L Anion Gap 12 12-20 Blood Urea Nitrogen 3 9-16 mg/dL Creatinine 0.52 0.5-1.4 mg/dL Creatinine Clr Calc Pharmacy 94.5 Provided height and weight: 160.02 cm, 50.802 kg. eGFR (calculated from the MDRD study equation) and eCrCl (calculated from the Cockcroft-Gault equation) are based on different parameters and may not yield comparable results. If eCrCl result is absurd, please check patient's height/weight. Estimated Glomerular Filt Rate > 60 NOTE: For -[place] individuals, multiply the result by 1.210. Chronic Kidney Disease: Estimated GFR < 60 mL/min/1.73m2 Severe Kidney Disease: Estimated GFR < 15 mL/min/1.73m2 Glucose Random 89 60-115 mg/dL Calcium 9.6 8.4-10.2 mg/dL Pathology Reviewed date:05/26/2023 09:08:47 PM Interpretation: Performing Lab:[facility], [address] [place] [phone] Notes/Report: Complete Blood Count no Diff Reviewed date:05/26/2023 09:08:47 PM Interpretation: Performing Lab:[facility], [address] [place] [phone] Notes/Report: White Blood Count 10.3 4.8-10.8 X10*3/uL Red Blood Count 3.98 4.20-5.50 X10*6/uL Hemoglobin 14.3 12.0-16.0 g/dl Hematocrit 40.3 37.0-47.0 % Mean Corpuscular Volume 101.3 80.0-98.0 fL Mean Corpuscular Hemoglobin 35.9 27.0-33.0 pg Mean Corpuscular HGB Conc 35.5 31.0-35.0 g/dl Red Cell Distribution Width 11.9 11.0-16.0 % Platelet Count 275 160-400 X10*3/uL Mean Platelet Volume 8.8 9.4-12.3 fL NRBC Pct Auto 0.0 0.0-0.2 /100WBC NRBC Abs Auto 0.000 0.0-0.012 X10*3/uL URINE DIP STICK Reviewed date:11/20/2023 11:35:59 AM Interpretation: Performing Lab: Notes/Report: SG 1.020 1.005 - 1.025 pH 5.0 5.0 - 9.0 MOHAMUD 15 Negative - NIT Negative Negative - PRO 15 Negative - Trace GLU Negative Negative - KET 5 Negative - UBG 0.2 0.1 - 1.8 CHI Negative 0.2 - 1.3 BLD Positive Negative - Menstrating No Urine Culture Reviewed date:01/04/2024 04:41:07 AM Interpretation: Performing Lab:[facility], [address] [place] [phone] Notes/Report: Urine Culture No growth. Electrolytes Reviewed date:01/04/2024 04:41:07 AM Interpretation: Performing Lab:[facility], [address] [place] [phone] Notes/Report: Sodium 136 135-145 mmol/L Potassium 3.1 3.3-5.1 mmol/L Chloride 94 96-108 mmol/L Carbon Dioxide 31 22-29 mmol/L Anion Gap 14 12-20 Blood Urea Nitrogen Reviewed date:01/04/2024 04:41:07 AM Interpretation: Performing Lab:[facility], [address] [place] [phone] Notes/Report: Blood Urea Nitrogen 4 9-16 mg/dL Creatinine Reviewed date:01/04/2024 04:41:07 AM Interpretation: Performing Lab:[facility], [address] [place] [phone] Notes/Report: Creatinine 0.53 0.5-1.4 mg/dL Estimated Glomerular Filt Rate > 60 NOTE: For -[place]icar[place] individuals, multiply the result by 1.210. Chronic Kidney Disease: Estimated GFR < 60 mL/min/1.73m2 Severe Kidney Disease: Estimated GFR < 15 mL/min/1.73m2 C Reactive Protein Reviewed date:01/04/2024 04:41:07 AM Interpretation: Performing Lab:[facility], [address] [place] [phone] Notes/Report: C Reactive Protein 0.80 < or = 0.50 mg/dL [facility] Reviewed date:01/04/2024 04:41:07 AM Interpretation: Performing Lab:[facility], [address] [place] [phone] Notes/Report: [facility] SEE NOTE SEE SCANN ED RESULTS IN EMR [facility] Reviewed date:01/04/2024 04:41:07 AM Interpretation: Performing Lab:[facility], [address] [place] [phone] Notes/Report: [facility] SEE NOTE SEE SCANNED RESULTS IN EMR Urinalysis and Microscopic Reviewed date:03/22/2024 07:07:11 AM Interpretation: Performing Lab:[facility] [address] [phone] Notes/Report: Color Urine Yellow Appearance Urine Clear PH 5.5 5.0-9.0 Glucose Urine UA Negative Negative mg/dL Urine Blood Small (1+) Negative Specific [place] - Urine <= 1.005 1.005-1.025 Urine Protein Negative Neg-Trace mg/dL Urine Ketones Negative Negative mg/dL Nitrite Urine Negative Negative Leukocyte Esterase Urine Negative Negative RBC Urine 0-2 0-2 /HPF WBC Urine 0-5 0-5 /HPF Squamous Epithelial Cell Urine 0-2 0-2 /HPF Bacteria Urine None Seen None Seen Hyaline Casts Urine 0-2 0-2 /LPF Urine Culture Reviewed date:03/22/2024 07:07:11 AM Interpretation: Performing Lab:[address] [phone] Notes/Report: Urine Culture Report Result Urine Culture < 10,000 cfu/ml Complete Blood Count Auto Di ff Reviewed date:03/22/2024 07:07:11 AM Interpretation: Performing Lab:[address] [phone] Notes/Report: White Blood Count 12.8 4.8-10.8 X10*3/uL Red Blood Count 4.91 4.20-5.50 X10*6/uL Hemoglobin 17.0 12.0-16.0 g/dl Hematocrit 48.1 37.0-47.0 % Mean Corpuscular Volume 98.0 80.0-98.0 fL Mean Corpuscular Hemoglobin 34.6 27.0-33.0 pg Mean Corpuscular HGB Conc 35.3 31.0-35.0 g/dl Red Cell Distribution Width 13.2 11.0-16.0 % Platelet Count 332 160-400 X10*3/uL Mean Platelet Volume 8.9 9.4-12.3 fL Neutrophils Percent Auto 68.0 45-73 % Imm Gran Pct Auto 0.5 0.0-0.4 % Lymphocytes Percent Auto 20.5 20-40 % Monocytes Percent Auto 10.1 2-11 % Eosinophils Percent Auto 0.3 0-4 % Basophils Percent Auto 0.6 0-2 % NRBC Pct Auto 0.0 0.0-0.2 /100WBC Neutrophils Absolute Auto 8.7 2.0-8.3 x10*3/u L Imm Gran Abs Auto 0.07 0.00-0.03 X10*3/uL Lymphocytes Absolute Auto 2.6 1.2-4.9 X10*3/u L Monocytes Absolute Auto 1.3 0.1-1.2 X10*3/uL Eosinophils Absolute Auto 0.0 0.0-0.4 X10*3/u L Basophils Absolute Auto 0.1 0.0-0.2 X10*3/uL NRBC Abs Auto 0.000 0.0-0.012 X10*3/uL Comprehensive [place]. Panel Fa st Reviewed date:03/22/2024 07:07:11 AM Interpretation: Performing Lab:[facility], [address] [place] [phone] Notes/Report: Sodium 136 135-145 mmol/L Potassium 3.4 3.3-5.1 mmol/L Chloride 98 96-108 mmol/L Carbon Dioxide 25 22-29 mmol/L Anion Gap 16 12-20 Blood Urea Nitrogen 6 9-16 mg/dL Creatinine 0.64 0.5-1.4 mg/dL Estimated Glomerular Filt Rate > 60 NOTE: For -[place]icar[place] individuals, multiply the result by 1.210. Chronic Kidney Disease: Estimated GFR < 60 mL/min/1.73m2 Severe Kidney Disease: Estimated GFR < 15 mL/min/1.73m2 Glucose Fasting 105 60-99 mg/dL A fasting glucose from 100-125 mg/dl is considered impaired (pre-diabetes). Calcium 10.4 8.4-10.2 mg/dL Bilirubin Total 1.3 0.0-1.0 mg/dL Aspartate Amino Transferase 24 5-31 U/L Alanine Aminotransferase 19 0-31 U/L Total Protein 8.5 6.5-8.0 g/dL Albumin Level 4.3 3.5-5.0 g/dL Alkaline Phosphatase 117 39-117 U/L Lipid Panel Reviewed date:03/22/2024 07:07:11 AM Interpretation: Performing Lab:[facility], [address] [place] [phone] Notes/Report: Triglycerides 98 <150 mg/dL Desirable Triglyceride: less than 150 mg/dL Borderline High Triglyceride 150-199 mg/dL High Triglyceride: 200-499 mg/dL Very High Triglyceride: greater than or equal to 5OO mg/dL Cholesterol 151 <200 mg/dL Desirable Cholesterol: less than 200 mg/dL Borderline High Cholesterol: 200-239 mg/dL High Cholesterol: greater than 239 mg/dL LDL Cholesterol Calculated 78 <100 mg/dL Desirable LDL: less than 100 mg/dL Near Optimal/Above Optimal LDL: 110-129 mg/dL Borderline High LDL: 130-159 mg/dL High LDL: 160-189 mg/dL Very High LDL: greater than or equal to 190 mg/dL HDL Cholesterol 54 >40 mg/dL Desirable HDL: greater than 40 mg/dL Note: This HDL assay may give artificially low results in patients with liver disease. CT NG by PCR Reviewed date:04/13/2024 05:52:45 AM Interpretation: Performing Lab:[facility], [address] [place] [phone] Notes/Report: Vaginal CT PCR NOT DETECTED Not Detect. A not detected test result does not exclude the possibility of infection because test results can be affected by improper specimen collection, concurrent antibiotic therapy, or the number of organisms in the specimen which may be below the sensitivity of the test. As with many diagnostic tests, results from the Xpert CT/NG assay should be interpreted in conjunction with other laboratory and clinical data available to the clinician. Xpert CT/NG performance has not been evaluated in patients less than 14 years of age. The assay should not be used for the evaluation of suspected sexual abuse or for other medico-legal indications. Additional testing is recommended in any circumstance when false positive or false negative results could lead to adverse medical, social or psychological consequences. NG PCR NOT DETECTED Not Detect. A not detected test result does not exclude the possibility of infection because test results can be affected by improper specimen collection, concurrent antibiotic therapy, or the number of organisms in the specimen which may be below the sensitivity of the test. As with many diagnostic tests, results from the Xpert CT/NG assay should be interpreted in conjunction with other laboratory and clinical data available to the clinician. Xpert CT/NG performance has not been evaluated in patients less than 14 years of age. The assay should not be used for the evaluation of suspected sexual abuse or for other medico-legal indications. Additional testing is recommended in any circumstance when false positive or false negative results could lead to adverse medical, social or psychological consequences. Bacterial Vaginosis Panel Reviewed date:04/13/2024 05:52:45 AM Interpretation: Performing Lab:[address] [phone] Notes/Report: Trichomonas vaginalis PCR NOT DETECTED Not Detect Bacterial Vaginosis PCR NEGATIVE Negative The BV organism targets of the Xpert Xpress MVP test can be commensal in women; Xpert Xpress MVP positive results for bacterial vaginosis should be considered in conjunction with other clinical and patient information to determine the disease status. Organisms that are not detected by the Xpert Xpress MVP test have also been reported to be associated with BV and aerobic vaginitis. The Xpert Xpress MVP test performance has not been evaluated in patients under the age of 14. [employer] PCR NOT DETECTED Not Detect Mila glab krusei PCR NOT DETECTED Not Detect Urine Culture Reviewed date:04/13/2024 05:52:44 AM Interpretation: Performing Lab:[address] [phone] Notes/Report: Urine Culture No growth. REASON FOR REFERRAL Reason Consult and Treat Diagnosis 1 Lumbar radiculopathy (M54.16) Diagnosis 2 Spinal stenosis of l umbar region, unspecified whether neurogenic claudication present (M48.061) Referral Organization Paresh Strong III, MD Referring Provider First Name Paresh Referring Provider Last Name Tae Referring Provider Speciality Internal M edicine Referred Provider [facility] Referred Provider Specialty Physical Med iciwy General Notes Priti Gray 07/25 04:10:39 PM > FaxedMarina Amber 08/08/2023 03:33:37 PM EST > The office caleed patient and left a message for the patient to call back and schedule. patient never called back.Called patient and given her the number for spine and sports to schedule appointment, patient stated she will call and schedule an appointment.Marina Amber 08/09/2023 02:59:24 PM > Office stated that the patient has not called and scheduled an appointment.Marina Amber 09/25/2023 03:10:21 PM EST > Office stated patient was scheduled for 12/21 which patient rescheduled to 09/18 then the patient cancelled and stated she would call back to reschedule Referral Priority Routine Referral Appointment Date 08/30/2023 Reason yearly pelvic and pa p smear Diagnosis 1 Pelvic pain (R10.2) Diagnosis 2 Annual physical exam (Z00.00) Referral Organization Paresh Strong III, MD Referring Provider First Name Paresh Referring Provider Last Name Tae Referring Provider Speciality Internal M edicine Referred Organization [facility] P[facility] ntindio Referred Provider [facility] Referred Address [address] [place] [address],[place], [id number], Referred Provider Specialty OB - Gynecol ogy General Notes Kamilla Vargas CMA 11/08 01:48:25 PM EDT > ref/demo/progress note sent to [facility], Kamilla Vargas CMA 02/07/2024 11:23:21 AM EDT > called [facility] they stated pt has not been given appt asked for referal to be refaxed to them this was done today , Kamilla Vargas CMA 02/19/2024 03:19:54 PM EDT > called was told they have not contact patient as of yet but will be calling her soon , Kamilal Vargas CMA 02/21/2024 09:30:20 AM EDT > Pt stating called OBGYN and made this appt Referral Priority Routine Referral Appointment Date 04/11/2024 MEDICATIONS Medication SIG (Take, Route, Frequency, Duration) Notes Start Date End Date Status levoFLOXacin 500 MG TAKE ONE TABLET BY M OUTH EVERY DAY Oral Active metroNIDAZOLE 500 MG TAKE ONE TABLET BY MOUTH EVERY 8 HOURS FOR 7 DAYS Oral Active Vitamin D3 25 MCG (1000 UT) TAKE ONE TAB LET BY MOUTH EVERY DAY Active Myrbetriq 50 MG TAKE ONE TABLET BY M OUTH EVERY DAY Oral Active Calcium 500 MG as directed Orally T wi a 01/15/2023 Active IMMUNIZATIONS Vaccine Route Administration Date Status Comme nts Tetanus and Diphtheria Toxoi ds Adsorbed Unknown 08/08/2002 Administered Influenza, quad Unknown 08/15/2018 Administered COVID- 19 Vaccine Unknown 09/18/2022 Administered COVID- 19 Vaccine Unknown 05/08/2021 Administered COVID- 19 Vaccine Unknown 06/05/2021 Administered COVID- 19 Vaccine Unknown 05/29/2021 Administered COVID- 19 Vaccine Unknown 11/24/2021 Administered Influenza no Preserv 3 and > Unknown 10/10/2016 Adminis tered Influenza no Preserv 3 and > Unknown 10/08/2013 Adminis tered Influenza no Preserv 3 and > Unknown 06/06/2012 Adminis tered COVID Pfizer Bivalent Unknown 09/18/2022 Administered Tdap Unknown 12/22/2014 Administered Td (adult) Unknown 08/04/2002 Administered Influenza-iiv4 p-free high dose Unknown 09/18/2022 Admi nistered SOCIAL HISTORY Tobacco Use: Social History Observation [...] User Heavy cigarett e smoker (20-39 cigs/day) Alcohol Screen Question Answer Notes Did you have a drink contain ing alcohol in the past year? Yes How often did you have a dri nk containing alcohol in the past year? 2 to 3 times a week (3 points) How many drinks did you have on a typical day when you were drinking in the past year? 1 or 2 drinks (0 point) How often did you have 6 or more drinks on one occasion in the past year? Never (0 point) Points 3 Interpretation Positive PROBLEMS Problem Type ICD Code Onset Dates Problem Status W/U Status Risk SNOMED Code Notes Problem Hyperlipidemia (E78.5) Active confirmed Hyperlipidemia (71189848) Comprehensive blood work with a fasting lipid profile will be done tomorrow morning. Problem Lumbar radiculopathy (M54.16) Active confirmed [id number] She is experiencing a flareup of the pain, likely due to nerve impingement from a disc. An MRI has been ordered and a surgical consultation may be necessary. She is gooing to use heat and rest and ibuprofen at this time. Dexamethasone will be added. If the pain does not improve rapidly. Problem Primary insomnia (F51.01) Active confirmed [id number] We discussed melatonin. She will continue on current therapy. Problem Ureterolithiasis (N20.1) Active confirmed 54039124 This diagnosis was made in [place] had an episode of renal colic. In recent years she has had no recurrence. She is not aware of any history of hypercalcemia or hyperuricemia. Problem Essential hypertension (I10) Active confirmed 23567366 Her blood pressure today is 131/83 and no change in her regimen was made. Problem Tobacco dependence (F17.200) Active confirmed 82946187 She has been s een by the gastroenterology consult nontender evaluation is in progress. Problem Urinary incontinence (R32) Active confirmed Urinary incontinence (871687716) She has been to see urology and had the cystoscopy. Apparently there were no significant findings. We have requested the note. She has had no hematuria. Problem Cervical spondylosis (M47.812) Active confirmed 189699134 She has chroni c pain with range of motion of the neck. There is no radiculopathy. Problem Vitamin D deficiency (E55.9) Active confirmed Vitamin D deficiency (33472642) Vitamin D supplementation was discussed today. I recommended 1000 units daily. Problem Diverticulitis (K57.92) Active confirmed [id number] The condition has become chronic and she is scheduled for resection of the sigmoid colon April 11, 2024. There is no contraindication surgery. She is medically cleared for the procedure. Problem Constipation (K59.00) Active confirmed Constipation (61751198) Problem Spinal stenosis of lumbar region, unspecified whether neurogenic claudication present (M48.061) Active confirmed 17799219 She will refra in from heavy lifting. If necessary, she will see surgery. Problem Degenerative disc disease at L5-S1 level (M51.37) Active confirmed 92034867 She has had several MRIs in the past for ppain like this. She has done nothing she can think of to cause this exacerbation. Problem Mural thickening of sigmoid colon (K63.9) Active confirmed [id number] This is a find ing on both the ultrasound and CT scan. We have requested a gastroenterology consultation or colonoscopy. She is waiting to hear from them. The rectal examination today was normal. Cystoscopy was brown and guaiac negative. There was significant pain on manipulating the uterus. Colonoscopy seems indicated. He was also referred to [facility]. VITAL SIGNS Heart Rate 93 /min 03/25/2024 Temperature 97.7 degrees Fahrenheit 03/25/2024 Blood pressure diastolic 83 mm Hg 03/25/2024 Height 62 in 03/25/2024 Blood pressure systolic 131 mm Hg 03/25/2024 Weight 113 lbs 03/25/2024 BMI 20.67 kg/m2 03/25/2024 Encounters Encounter Location Date Provider Diagnosis Paresh Strong III, MD [address] [place] [address] [place] [address] 08/28/2023 Paresh Strong III, MD [address] [place] [address] [place] [address] 11/20/2023 Paresh Strong Essential hypertensi on I10 ; Dysuria R30.0 ; Hyperlipidemia E78.5 ; Encounter for screening mammogram for malignant neoplasm of breast Z12.31 ; Urinary incontinence R32 ; Lumbar radiculopathy M54.16 ; Degenerative disc disease at L5-S1 level M51.37 ; Spinal stenosis of lumbar region, unspecified whether neurogenic claudication present M48.061 and Tobacco dependence F17.200 Paresh Strong III, MD [address] [place] [address] [place] [address] 06/05/2023 Paresh Strong III, MD [address] [place] [address] [place] [address] 07/24/2023 Paresh Strong Essential hypertensi on I10 ; Degenerative disc disease at L5-S1 level M51.37 ; Lumbar radiculopathy M54.16 ; Hyperlipidemia E78.5 ; Primary insomnia F51.01 ; Tobacco dependence F17.200 ; Gastrointestinal bleeding, lower K92.2 and Exacerbation of ulcerative colitis with rectal bleeding K51.911 Paresh Strong III, MD [address] [place] [address] [place] [address] 03/25/2024 Paresh Strong Essential hypertensi on I10 ; Diverticulitis K57.92 ; Degenerative disc disease at L5-S1 level M51.37 ; Urinary incontinence R32 ; Cervical spondylosis M47.812 ; Lumbar radiculopathy M54.16 ; Spinal stenosis of lumbar region, unspecified whether neurogenic claudication present M48.061 ; Tobacco dependence F17.200 ; Hyperlipidemia E78.5 and Vitamin D deficiency E55.9 Paresh Strong III, MD [address] [place] [address] [place] [address] 09/20/2023 Paresh Strong Constipation K59.00 and Mural thickening of sigmoid colon K63.9 Paresh Strong III, MD [address] [place] [address] [place] [address] 12/03/2023 Paresh Strong III, MD [address] [place] [address] [place] [address] 02/21/2024 Paresh Strong UTI symptoms R39.9 Paresh Strong III, MD [address] [place] [address] [place] [address] 02/21/2024 Paresh Strong III, MD [address] [place] [address] [place] [address] 04/23/2023 Paresh Strong Degenerative disc di sease at L5-S1 level M51.37 ; Lumbar radiculopathy M54.16 ; Essential hypertension I10 ; Hyperlipidemia E78.5 ; Tobacco dependence F17.200 ; Mural thickening of sigmoid colon K63.9 and Pelvic pain R10.2 Paresh Strong III, MD [address] [place] [address] [place] [address] 05/21/2023 Paresh Strong Essential hypertensi on I10 ; Spinal stenosis of lumbar region, unspecified whether neurogenic claudication present M48.061 ; Lumbar radiculopathy M54.16 ; Primary insomnia F51.01 ; Screening for breast cancer Z12.31 ; Tobacco dependence F17.200 and Gastrointestinal bleeding, lower K92.2 ASSESSMENTS Encounter Date Diagnosis Assessment Notes Treatment Notes Treatment Clinical Notes 11/20/2023 Dysuria (ICD-10 - R30.0) A urine culture will be ordered. 11/20/2023 Essential hypertension (ICD-10 - I10) Her blood pressure today is 137/82 and no change in her regimen was made. 07/24/2023 Essential hypertension (ICD-10 - I10) Her blood pressure today is 110/60. She was given an appointment to return to the office to measure her vital signs. 07/24/2023 Degenerative disc disease at L5-S1 level (ICD-10 - M51.37) She has had several MRIs in the past for ppain like this. She has done nothing she can think of to cause this exacerbation. 03/25/2024 Essential hypertension (ICD-10 - I10) Her blood pressure today is 131/83 and no change in her regimen was made. 03/25/2024 Diverticulitis (ICD-10 - K57.92) The condition has become chronic and she is scheduled for resection of the sigmoid colon April 11, 2024. There is no contraindication surgery. She is medically cleared for the procedure. 04/23/2023 Lumbar radiculopathy (ICD-10 - M54.16) Chest occasionally has exacerbations of low back pain that radiates down both legs. The pain is mild at this time. She is able to conduct all of the activities of daily life. 04/23/2023 Degenerative disc disease at L5-S1 level (ICD-10 - M51.37) She is disabled because of the disease in her spine. She has pain and reduced function in the neck and the lumbar spine. She has occasional thoracic spine. She is using acetaminophen at this time. She has had no benefit from NSAID S and does not wish to take narcotics. She has had no relief in the past from gabapentin. We discussed other options, but she would prefer to stay with acetaminophen. 05/21/2023 Essential hypertension (ICD-10 - I10) Her most recent blood pressure was 126/80. She was given an appointment to return to the office to measure her vital signs. 05/21/2023 Spinal stenosis of lumbar region, unspecified whether neurogenic claudication present (ICD-10 - M48.061) She will refrain from heavy lifting. If necessary, she will see surgery. 11/20/2023 Hyperlipidemia (ICD-10 - E78.5) Comprehensive blood work with a fasting lipid profile will be done tomorrow morning. 07/24/2023 Lumbar radiculopathy (ICD-10 - M54.16) She is experiencing a flareup of the pain, likely due to nerve impingement from a disc. An MRI has been ordered and a surgical consultation may be necessary. She is gooing to use heat and rest and ibuprofen at this time. Dexamethasone will be added. If the pain does not improve rapidly. 03/25/2024 Degenerative disc disease at L5-S1 level (ICD-10 - M51.37) She has had several MRIs in the past for ppain like this. She has done nothing she can think of to cause this exacerbation. 09/20/2023 Constipation (ICD-10 - K59.00) 02/21/2024 UTI symptoms (ICD-10 - R39.9) 04/23/2023 Essential hypertension (ICD-10 - I10) Her most recent blood pressure was 126/80. She was given an appointment to return to the office to measure her vital signs. 05/21/2023 Lumbar radiculopathy (ICD-10 - M54.16) Chest occasionally has exacerbations of low back pain that radiates down both legs. The pain is mild at this time. She is able to conduct all of the activities of daily life. 11/20/2023 Encounter for screening mammogram for malignant neoplasm of breast (ICD-10 - Z12.31) We have scheduled her annual screening mammogram. 07/24/2023 Hyperlipidemia (ICD-10 - E78.5) Comprehensive blood work with a fasting lipid profile has been ordered. 03/25/2024 Urinary incontinence (ICD-10 - R32) She has been to see urology and had the cystoscopy. Apparently there were no significant findings. We have requested the note. She has had no hematuria. 09/20/2023 Mural thickening of sigmoid colon (ICD-10 - K63.9) 04/23/2023 Hyperlipidemia (ICD-10 - E78.5) Comprehensive blood work with a fasting lipid profile has been ordered. 05/21/2023 Primary insomnia (ICD-10 - F51.01) We discussed melatonin. She will continue on current therapy. 11/20/2023 Urinary incontinence (ICD-10 - R32) She has been to see urology and had the cystoscopy. Apparently there were no significant findings. We have requested the note. She has had no hematuria. 07/24/2023 Primary insomnia (ICD-10 - F51.01) We discussed melatonin. She will continue on current therapy. 03/25/2024 Cervical spondylosis (ICD-10 - M47.812) She has chronic pain with range of motion of the neck. There is no radiculopathy. 04/23/2023 Tobacco dependence (ICD-10 - F17.200) She has been seen by the gastroenterology consult nontender evaluation is in progress. 05/21/2023 Screening for breast cancer (ICD-10 - Z12.31) A screening mammogram was ordered. This will be an annual event. 11/20/2023 Lumbar radiculopathy (ICD-10 - M54.16) She is experiencing a flareup of the pain, likely due to nerve impingement from a disc. An MRI has been ordered and a surgical consultation may be necessary. She is gooing to use heat and rest and ibuprofen at this time. Dexamethasone will be added. If the pain does not improve rapidly. 07/24/2023 Tobacco dependence (ICD-10 - F17.200) She has been seen by the gastroenterology consult nontender evaluation is in progress. 03/25/2024 Lumbar radiculopathy (ICD-10 - M54.16) She is experiencing a flareup of the pain, likely due to nerve impingement from a disc. An MRI has been ordered and a surgical consultation may be necessary. She is gooing to use heat and rest and ibuprofen at this time. Dexamethasone will be added. If the pain does not improve rapidly. 04/23/2023 Mural thickening of sigmoid colon (ICD-10 - K63.9) This is a finding on both the ultrasound and CT scan. We have requested a gastroenterology consultation or colonoscopy. She is waiting to hear from them. The rectal examination today was normal. Cystoscopy was brown and guaiac negative. There was significant pain on manipulating the uterus. Colonoscopy seems indicated. He was also referred to [facility]. 05/21/2023 Tobacco dependence (ICD-10 - F17.200) She has been seen by the gastroenterology consult nontender evaluation is in progress. 11/20/2023 Degenerative disc disease at L5-S1 level (ICD-10 - M51.37) She has had several MRIs in the past for ppain like this. She has done nothing she can think of to cause this exacerbation. 07/24/2023 Gastrointestinal bleeding, lower (ICD-10 - K92.2) She was referred to the emergency room and will be seen there. 03/25/2024 Spinal stenosis of lumbar region, unspecified whether neurogenic claudication present (ICD-10 - M48.061) She will refrain from heavy lifting. If necessary, she will see surgery. 04/23/2023 Pelvic pain (ICD-10 - R10.2) She continues to have pain in the pelvis and rectum and left lower quadrant of the abdomen. Both the ultrasound and CT scan had shown thickening of the sigmoid colon. She was given an appointment to the office in 48 hours to evaluate the perineal rash and have a rectal examination. A GI consultation is pending for colonoscopy. 05/21/2023 Gastrointestinal bleeding, lower (ICD-10 - K92.2) She was referred to the emergency room and will be seen there. 11/20/2023 Spinal stenosis of lumbar region, unspecified whether neurogenic claudication present (ICD-10 - M48.061) She will refrain from heavy lifting. If necessary, she will see surgery. 07/24/2023 Exacerbation of ulcerative colitis with rectal bleeding (ICD-10 - K51.911) She will continue to use the prednisone and meselamine. 03/25/2024 Tobacco dependence (ICD-10 - F17.200) She has been seen by the gastroenterology consult nontender evaluation is in progress. 11/20/2023 Tobacco dependence (ICD-10 - F17.200) She has been seen by the gastroenterology consult nontender evaluation is in progress. 03/25/2024 Hyperlipidemia (ICD-10 - E78.5) Comprehensive blood work with a fasting lipid profile will be done tomorrow morning. 03/25/2024 Vitamin D deficiency (ICD-10 - E55.9) Vitamin D supplementation was discussed today. I recommended 1000 units daily. PLAN OF TREATMENT Pending Test Test Name Order Date PROFILE, FASTING (COMPREHENSIVE METABOLI C) 11/20/2023 CBC w DIFF 11/20/2023 URINALYSIS (UA) 02/21/2024 URINE CULTURE 02/21/2024 MRI LUMBAR SPINE NO CONTRAST 07/24/2023 BONE DENSITY DEXA 10/16/2022 MAMMOGRAM DIGITAL BILATERAL SCREEN 10/16 Lipid Panel 11/20/2023 MM tomosynthesis screening BI 11/20/2023 Next Appt Details Provider Name:Paresh Strong, 04/17/2024 11:15:00 AM, [address] [place] [address] [address], [place], [phone], Provider Name:Paresh Strong, 11/20/2024 11:00:00 AM, [address] [place] [address] [place], [address], Insurance Providers Payer Name Payer Address Payer Phone Subscriber Number Group Number Insured Name Patient Relationship to Insured Coverage Start Date Coverage End Date [employer] [address] [address] [place] [address] [id number] Cathie Arguello Self - patient is the insured MEDICAID [address] [place], [place] [id number] [phone] [id number] SurinderCathie navarrete Self - patient is the insured MEDICAL (GENERAL) HISTORY Medical History History ICD Code Disabled from degenerative disease of th e spine Fibromyalgia Lumbar radiculopathy Cervical spondylosis Lumbar spinal stenosis Urinary incontinence History of pyelonephritis Frequent urinary tract infections Allergic to Augmentin Urinary incontinence Tobacco dependence History of hypertension Insomnia Last menstrual period 2014 History of ureterolithiasis Surgical History Surgery Date(Month/Year) Last menstrual period 2014 History of colonoscopy Etopic , right salpingectomy Bilateral hip surgery Right knee patella reconstruction Facial reconstruction
--- NOTE | 2024-04-15 15:45 | ECG_ITS ---
Test Reason : ?CONVERTED TO SR Blood Pressure : / mmHG Vent. Rate : 112 BPM Atrial Rate : 112 BPM P-R Int : 146 ms QRS Dur : 134 ms QT Int : 380 ms P-R-T Axes : 037 -42 100 degrees QTc Int : 518 ms Sinus tachycardia Left axis deviation Left bundle branch block Abnormal ECG When compared with ECG of 15-APR-2024 14:41, No significant change was found Referred By: Shayne Carmichael Electronically Signed By:YUKI ESPINOZA MD
--- NOTE | 2024-04-15 15:46 | ED_ITS ---
HPI - Chest Pain General Chief Complaint: Chest Pain Stated Complaint: Palpitations, SOB Time Seen by Provider: 04/15/24 15:42 Source: patient Mode of arrival: ambulatory Limitations: no limitations History of Present Illness HPI narrative: This is a 58yof with pmhx DDD, osteoporosis, daily smoker, UC who presents for evaluation of dyspnea and palpitations. She states feeling sick for the last 2 days. She states associated dyspnea and chest tightness. She states dry cough without sputum production. She states no hemoptysis. She states no exertional chest pain. She states no syncope. She states no new back or abdominal pain. She states she does have diverticulitis and wonder if it is flaring up. She states chronic abdominal discomfort. She states no changes to bowel habits. She states no vomiting. She states she was diagnosed with a UTI recently with dysuria and has been taking an antibiotic as prescribed. Related Data Home Medications ?Medication ?Instructions ?Recorded ?Confirmed calcium carbonate (Oyster Shell 500 mg PO BID 02/22/23 03/07/24 Calcium) cholecalciferol (vitamin D3) 25 25 mcg PO DAILY 02/22/23 03/07/24 mcg (1,000 unit) tablet Previous Rx's ?Medication ?Instructions ?Recorded mirabegron 50 mg tablet,extended 50 mg PO DAILY 90 days #90 tabs 10/03/23 release 24 hr (Myrbetriq) nitrofurantoin 100 mg PO BID PRN UTI 5 days #10 04/11/24 monohydrate/macrocrystals 100 mg caps capsule (Macrobid) Allergies Allergy/AdvReac Type Severity Reaction Status Date / Time amoxicillin [From Augmentin] Allergy Intermediate Vomiting Verified 04/15/24 15:00 clavulanic acid Allergy Intermediate Vomiting Verified 04/15/24 15:00 [From Augmentin] nitrofurantoin AdvReac Severe Shortness Verified 04/15/24 15:16 of Breath Review of Systems 2 Review of Systems: ROS as per HPI [facility] Past Medical History Medical History Hx of sigmoidoscopy Pyelonephritis Nephrolithiasis Ureterolithiasis Insomnia History of hypertension Tobacco dependence Urinary incontinence Lumbar spinal stenosis Cervical spondylosis Lumbar radiculopathy Fibromyalgia Degenerative joint disease of spine Surgical History H/O colonoscopy History of facial surgery History of salpingectomy History of hip surgery History of right knee surgery Family History Family History Father Esophageal cancer Mother Diabetes mellitus Maternal Grandfather Diabetes mellitus Social History Social History Household Members: None Household Members Other:: Patient lives by herself Housing: House Do you presently have visiting nurse or other home services: No Alcohol intake: current Alcohol intake frequency: 3 or more drinks per day Alcohol type: beer Patient Tobacco Use Status: Current everyday Tobacco user Tobacco use type: Cigarette Cigarette Packs Per Day: 1 Cigarettes Per Day: 20.0 Years Smoked: 30 Smoked in Last 30 Days: Yes Use of substances other than those prescribed or required for medical reasons: No Substance Use Type: Marijuana Advance Directives: Yes Advance Directives on File: Yes Advance Directives Date on File: 05/28/23 Do you have a plan to hurt others: No Plan service: No Sexual orientation: Straight/Heterosexual Gender identity: Female Physical Exam 2 Vital Signs: Vital Signs: Last Vital Signs Temp 98.0 F 04/15/24 19:36 Pulse 82 04/15/24 19:36 Resp 17 04/15/24 19:36 BP 106/61 04/15/24 19:36 Pulse Ox 91 L 04/15/24 19:36 O2 Del Method Nasal Cannula 04/15/24 19:36 O2 Flow Rate 2 04/15/24 19:36 BMI result Body Mass Index 20.6 Gen: NAD, AOx3 HEENT: NCAT, EOMI, normal conjunctiva CV: tachycardic rate, regular rhythm Pulm: CTAB, tachypneic, no respiratory distress, faint expiratory wheezes at bases, no rhonchi GI: Soft, mild generalized abdominal tenderness to palpation, ND, no rebound, guarding or rigidity Neuro: Grossly non focal Medications Administered Discontinued Medications Generic Name Dose Route Start Last Admin Trade Name Freq PRN Reason Stop Dose Admin Albuterol Sulfate 5 mg/ 0 mg 04/15/24 15:57 04/15/24 16:15 Albuterol/Ipratropium 3 ml INHALE 04/15/24 15:58 1 each ONCE ONE Administration Magnesium Sulfate 2 gm in 50 mls @ 25 mls/hr 04/15/24 16:21 04/15/24 18:43 Magnesium Sulfate/H2o IV 04/15/24 18:20 Infused ONCE ONE Infusion Magnesium Sulfate 2 gm in 50 mls @ 25 mls/hr 04/15/24 16:22 04/15/24 18:42 Magnesium Sulfate/H2o IV 04/15/24 18:21 25 mls/hr ONCE ONE Administration Potassium Chloride 10 meq in 100 mls @ 100 mls/hr 04/15/24 16:30 04/15/24 19:49 Potassium Chloride/H20 IV 04/15/24 20:29 100 mls/hr Q1H ELFEGO Administration Iohexol 100 ml 04/15/24 18:29 04/15/24 18:30 Iohexol 350 Mg/Ml 100 Ml Infus..Btl IV 04/15/24 18:30 85 ml ONCE ONE Administration Metoprolol Tartrate 5 mg 04/15/24 15:17 04/15/24 15:18 Metoprolol Tartrate 5 Mg/5 Ml Vial IVPUSH 04/15/24 15:18 5 mg ONCE ONE Administration Protocol Metoprolol Tartrate 25 mg 04/15/24 16:35 04/15/24 16:53 Metoprolol Tartrate 25 Mg Tablet PO 04/15/24 16:36 25 mg ONCE ONE Administration Protocol Potassium Chloride 20 meq 04/15/24 16:22 04/15/24 16:53 Potassium Chloride Er 20 Meq Tab.Er.Prt PO 04/15/24 16:23 20 meq ONCE ONE Administration Medical Decision Making Medical Decision Making [facility] Narrative: 1600 - at time of my evaluation, patient is tachycardic with regular rhyhm. Initial EKG as below demonstrating atrial flutter 140 beats per minute, new left bundle branch block morphology, QRS 130, IA 144, QTC 500. Repeat EKG shortly after my evaluation demonstrates a sinus tachycardia at 112 beats per minute, left bundle branch block morphology, QRS 134, IA 146, QTC 518. Of note, this is after patient has received 5mg IV Lopressor, which is ordered by Dr. Vaughn. Bedside echo performed by Dr. Vaughn with concerning findings for decreased EF. Dr. Vaughn discussed case with System Archive Analyst, Dr. Grewal, who recommended against adenosine and recommended beta-mya and considered loading with Digoxin. Patient is now in sinus tachycardiac, hemodynamically stable alebti with new oxygen requirment. She is mildly tachypneic. I will provide DuoNeb given scattered expiratory wheezes at the bases and history of smoking. Screening labs and chest x-ray ordered. Further, System Archive Analyst recommend urgent echocardiogram, which is ordered Dr. Vaughn (I am notified that order needs to be modified with need for indication, which is updated by me). I do not suspect this is sepsis. 1636 - I updated Dr. Grewal on conversion to sinus tachycardia. they recommend po metoprolol at this time. will provide 25mg po metoprolol tartrate. I have reviewed and interpreted labs which are notable for WBC 12.7 (suspect this is reactive leukocytosis), Hgb 16.7 (this may be secondary to chronic smoking), Na 130, K 2.9, Mg 1.4. Tbili 1.2 (suspect this is reactive and/or secondary to alcohol use). I have initiated repletion of hypokalemia and hypomagnesemia. D- dimer is unable to exclude PE at 302, thus will obtain CTA PE. Given mild abdominal discomfort and reported history of diverticulitis, will obtain CT imaging for evaluation of diverticulitis as trigger for atrial tachycardia. otherwise, alcohol abuse may be contributing factor especially in contact of aforementioend electrolyte/lab abnormalities commonly seen is alcohol abuse. 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 will await CT imaging. anticipate admission. I reviewed ultrasound finding results ?System Archive Analyst: Rufus Grewal MD Symptoms: indication: dyspnea Study Quality: Fair ECG Rhythm: Atrial flutter Conclusions: - 1. Moderately reduced LV ejection fraction at 35-40% with impaired relaxation filling pattern 2. Normal cardiac valvular Doppler I independently reviewed the patient's chest x-ray which demonstrates no focal consolidation or pneumothorax. I reviewed radiology impression of chest x-ray as below. I reviewed radiology impression of CT imaging as below.CT imaging demonstrates no evidence of pulmonary emboli. CT images with findings of interstitial and alveolar pulmonary edema. I considered diuresis, but patient is hypokalemic receiving potassium chloride repletion. I discussed this with the admitting hospitalist, Dr. Galloway, and we will withhold at this time until repeat potassium level is obtained following potassium repletion. Admission/Observation Consideration of admission/observation: Escalation of care including admission/observation considered Consult Healthcare Provider Management of the patient was discussed with: Hospitalist and Document Examiner I have discussed case and management with System Archive Analyst, Dr. Grewal, as above. Lab Data MDM Lab Attestation statement: I reviewed the patient's lab results. 04/15/24 15:10 04/15/24 15:10 Labs: Lab Results 04/15/24 04/15/24 04/15/24 Range/Units 15:10 15:35 17:34 WBC 12.7 H (4.8-10.8) X10*3/uL RBC 4.76 (4.20-5.50) X10*6/uL Hgb 16.7 H (12.0-16.0) g/dl Hct 45.1 (37.0-47.0) % MCV 94.7 (80.0-98.0) fL MCH 35.1 H (27.0-33.0) pg MCHC 37.0 H (31.0-35.0) g/dl RDW 12.6 (11.0-16.0) % Plt Count 196 D (160-400) X10*3/uL MPV 9.2 L (9.4-12.3) fL Immature Gran % (Auto) 0.5 H (0.0-0.4) % Neut % (Auto) 83.6 H (45-73) % Lymph % (Auto) 5.6 L (20-40) % [place] % (Auto) 7.9 (2-11) % Eos % (Auto) 2.0 (0-4) % Baso % (Auto) 0.4 (0-2) % Lymph # (Auto) 0.7 L (1.2-4.9) X10*3/uL [place] # (Auto) 1.0 (0.1-1.2) X10*3/uL Eos # (Auto) 0.3 (0.0-0.4) X10*3/uL Baso # (Auto) 0.1 (0.0-0.2) X10*3/uL Abs Immat Gran (auto) 0.06 H (0.00-0.03) X10*3/uL Absolute Neuts (auto) 10.6 H (2.0-8.3) x10*3/uL Absolute Nucleated RBC 0.000 (0.0-0.012) X10*3/uL Nucleated RBC % (auto) 0.0 (0.0-0.2) /100WBC D-Dimer High Sensitivty 302 NG/ML Sodium 130 L (135-145) mmol/L Potassium 2.9 L* (3.3-5.1) mmol/L Chloride 95 L (96-108) mmol/L Carbon Dioxide 23 (22-29) mmol/L Anion Gap 15 (12-20) BUN 8 L (9-16) mg/dL Creatinine 0.60 (0.5-1.4) mg/dL Estim Creat Clear Calc 79.8 Estimated GFR > 60 Random Glucose 120 H (60-115) mg/dL Calcium 10.2 (8.4-10.2) mg/dL Magnesium 1.4 L* (1.6-2.6) mg/dL Total Bilirubin 1.2 H (0.0-1.0) mg/dL AST 19 (5-31) U/L ALT 16 (0-31) U/L Alkaline Phosphatase 77 (39-117) U/L Troponin I High Sens 5.9 (<3.5-17.0) ng/L B-Natriuretic Peptide 24 (<100) pg/mL Total Protein 8.3 H (6.5-8.0) g/dL Albumin 4.1 (3.5-5.0) g/dL Influenza Type A (PCR) NEGATIVE (Negative) Influenza Type B (PCR) NEGATIVE (Negative) RSV RNA Qual (PCR) NEGATIVE (Negative) SARS-CoV-2 RNA (RT-PCR) NEGATIVE (Negative) Radiology Impression Discussion of test interpretation with radiology: I have reviewed the radiologist's reading. Radiologist Impression: IMPRESSION: Mild reticular nodular densities right lung base. No prior studies are available for comparison to assess if this is a chronic finding. Dictated By: Aman Romo MD Signed By: <Electronically signed by Aman Romo MD in [place]> 04/15/[address]/CT angio chest PE protocol IMPRESSION: 1. No evidence of pulmonary emboli. 2. Interstitial prominence with Niyah B-lines and dependent infiltrates and groundglass changes at the lung bases, right greater than left. Findings are suggestive of interstitial and alveolar pulmonary edema. Infectious etiologies would be another possibility although considered to be much less likely VTE: negative. Dictated By: Aman Romo MD Signed By: <Electronically signed by Aman Romo MD in [place]> 04/15/242023 Discharge Plan Discharge Clinical Impression: New onset of congestive heart failure Patient Disposition: Admitted As Inpatient Print Language: Chinese
[2024-04-15 15:57] LABS: D Dimer High Sensitivity 302 NG/ML
[2024-04-15 16:01] LABS: B Type Natriuretic Peptide 24 pg/mL (<100)
[2024-04-15] MEDS: Albuterol Sulfate 5 MG, Albuterol/Iprat 2.5/0.5MG 3 ML 3 ML INHALE (16:15)
[2024-04-15 16:21] LABS: Magnesium 1.4 mg/dL (1.6-2.6)
--- NOTE | 2024-04-15 16:33 | PC.NURSE ---
Patient currently getting bedside ECHO, MG and K to be hung once ECHO complete.
--- NOTE | 2024-04-15 16:43 | P.CONCA_ITS ---
History of Present Illness History of Present Illness Date of Service: 04/15/24 Requesting physician: Doron Vaughn Consult reason: other (Atrial flutter) Chief complaint: Palpitations, SOB Narrative: I was consulted to see Cathie in urgent in cardiology consultation today as she was noted to be in persistent no complex tachycardia consistent with atrial flutter with rapid ventricular response difficult to control. Patient came to the hospital saying that she has been treated for some UTI urinary tract related infection. She was antibiotics and for the last 2-3 days she was feeling rapid heart rate. She then got significantly short of breath and her mother brought her to the emergency room. She says she has been short of breath with exertion for some time. 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 Her BNP at 24. She was given digoxin and IV metoprolol and subsequently EKG shows that she has converted to sinus tachycardia. She remained short of breath. She has not had any wheezing. She does smoke about a pack a day but she said for the last 2 3 days she has not had much smoking. She denies any clear orthopnea, PND. She denies any syncopal episode. Denies any chest pain. Still appears to be very short of breath. Review of Systems 2 Constitutional: Constitutional: Reports lethargy Eyes: Eyes: Reports no additional eye complaints Cardiovascular: Cardiovascular: Denies chest pain, Denies lightheadedness, Denies Loss of Consciousness, Reports palpitations and Reports dyspnea Respiratory: Respiratory: Reports dyspnea Genitourinary: Genitourinary: Reports flank pain, Reports urinary incontinence and Reports urinary urgency Neurologic: Reports system reviewed and no additional complaints, except as documented Endocrine: Endocrine: Reports palpitations [facility] Past Medical History Medical History Hx of sigmoidoscopy Pyelonephritis Nephrolithiasis Ureterolithiasis Insomnia History of hypertension Tobacco dependence Urinary incontinence Lumbar spinal stenosis Cervical spondylosis Lumbar radiculopathy Fibromyalgia Degenerative joint disease of spine Family History Family History Father Esophageal cancer Mother Diabetes mellitus Maternal Grandfather Diabetes mellitus Surgical History Surgical History H/O colonoscopy History of facial surgery History of salpingectomy History of hip surgery History of right knee surgery Social History Social History Household Members: None Household Members Other:: Patient lives by herself Housing: House Do you presently have visiting nurse or other home services: No Alcohol intake: current Alcohol intake frequency: 3 or more drinks per day Alcohol type: beer Patient Tobacco Use Status: Current everyday Tobacco user Tobacco use type: Cigarette Cigarette Packs Per Day: 1 Cigarettes Per Day: 20.0 Years Smoked: 30 Smoked in Last 30 Days: Yes Use of substances other than those prescribed or required for medical reasons: No Substance Use Type: Marijuana Advance Directives: Yes Advance Directives on File: Yes Advance Directives Date on File: 05/28/23 Do you have a plan to hurt others: No Plan service: No Sexual orientation: Straight/Heterosexual Gender identity: Female Meds Allergies Allergy/AdvReac Type Severity Reaction Status Date / Time amoxicillin [From Augmentin] Allergy Intermediate Vomiting Verified 04/15/24 15:00 clavulanic acid Allergy Intermediate Vomiting Verified 04/15/24 15:00 [From Augmentin] nitrofurantoin AdvReac Severe Shortness Verified 04/15/24 15:16 of Breath Active Medications: Current Medications Magnesium Sulfate (Magnesium Sulfate/H2o) 2 gm in 50 mls @ 25 mls/hr IV ONCE ONE Stop: 04/15/24 18:20 Magnesium Sulfate (Magnesium Sulfate/H2o) 2 gm in 50 mls @ 25 mls/hr IV ONCE ONE Stop: 04/15/24 18:21 Potassium Chloride (Potassium Chloride/H20) 10 meq in 100 mls @ 100 mls/hr IV Q1H ELFEGO Stop: 04/15/24 20:29 Home Medications ?Medication ?Instructions ?Recorded ?Confirmed ?Last Taken ?Type calcium carbonate (Oyster Shell 500 mg PO BID 02/22/23 03/07/24 05/21/23 History Calcium) cholecalciferol (vitamin D3) 25 25 mcg PO DAILY 02/22/23 03/07/24 05/21/23 History mcg (1,000 unit) tablet Physical Exam 2 Vital Signs: Vital Signs: Last Vital Signs Temp 98.5 F 04/15/24 14:59 Pulse 108 H 04/15/24 16:16 Resp 16 04/15/24 16:16 BP 134/84 04/15/24 15:20 Pulse Ox 88 L 04/15/24 14:59 O2 Del Method Room Air 04/15/24 14:59 BMI result Body Mass Index 20.6 Const: General: cooperative, alert, awake, in distress mild and respiratory and anxious Nutritional Appearance: thin and underweight O rientation/consciousness: patient oriented x3 HEENT: Head: Yes normocephalic and Yes atraumatic Neck: Neck: Yes trachea midline, Yes supple and Yes no JVD Resp: Effort & Inspection: normal respiratory effort Auscultation: no rales, no wheezes and diminished lung sounds Cardio: Jugular venous distension: no JVD Rate: tachycardic Heart sounds: S1 normal heart sound present, S2 normal heart sound present, no click, no gallops and no murmurs GI: Auscultation: normal bowel sounds Skin: General skin exam: no rashes or lesions noted Neuro: General: patient oriented x3 and no focal motor deficits Extrem: General: Yes no clubbing, cyanosis or edema Objective Labs and Meds 04/15/24 15:10 04/15/24 15:10 Lab results: Laboratory Results - last 24 hr 04/15/24 04/15/24 15:10 15:35 WBC 12.7 H RBC 4.76 Hgb 16.7 H Hct 45.1 MCV 94.7 MCH 35.1 H MCHC 37.0 H RDW 12.6 Plt Count 196 D MPV 9.2 L Immature Gran % (Auto) 0.5 H Neut % (Auto) 83.6 H Lymph % (Auto) 5.6 L Door % (Auto) 7.9 Eos % (Auto) 2.0 Baso % (Auto) 0.4 Lymph # (Auto) 0.7 L [place] # (Auto) 1.0 Eos # (Auto) 0.3 Baso # (Auto) 0.1 Abs Immat Gran (auto) 0.06 H Absolute Neuts (auto) 10.6 H Absolute Nucleated RBC 0.000 Nucleated RBC % (auto) 0.0 D-Dimer High Sensitivty 302 Sodium 130 L Potassium 2.9 L* Chloride 95 L Carbon Dioxide 23 Anion Gap 15 BUN 8 L Creatinine 0.60 Estim Creat Clear Calc 79.8 Estimated GFR > 60 Random Glucose 120 H Calcium 10.2 Magnesium 1.4 L* Total Bilirubin 1.2 H AST 19 ALT 16 Alkaline Phosphatase 77 Troponin I High Sens 5.9 B-Natriuretic Peptide 24 Total Protein 8.3 H Albumin 4.1 EKG 1. Is suggestive sinus tachycardia at 140 beats per minute left bundle- branch block. EKG 2. Shows sinus tachycardia left bundle-branch block Assessment and Plan (1) Sinus tachycardia: Status: Acute Patient's initial EKG also appears to be sinus tachycardia. Has underlying left bundle-branch block. Unknown duration. Cause for sinus tachycardia is not sure. Ruled out sepsis. Also ruled out pulmonary embolism given her significant shortness of breath. Clinically does appear to be in heart failure. Replace electrolytes aggressively. Also I would consider hydration. (2) Cardiomyopathy: Status: Acute Cardiomyopathy process do not think is causing her shortness of breath as she does not appear to be in congestive heart failure. I would gently hydrate her. Could be related to either left bundle-branch block or alcohol related. Advised to stop alcohol. P.o. metoprolol therapy for neurohormonal modulation for now. IV hydration for now. Will review the echocardiogram. Once stable and blood pressure is stabilized will consider adding other neurohormonal modulators. Will follow with you Procedures Date of Service Date of Service: 04/15/24
[2024-04-15] MEDS: Potassium Chloride ER 20 MEQ TAB.ER.PRT PO (16:53)
[2024-04-15] MEDS: Metoprolol Tartrate 25 MG TABLET PO (16:53)
[2024-04-15] MEDS: Magnesium Sulfate/H2O 2 GM/50 ML PIGGYBACK IV ×2 (17:03→18:42)
[2024-04-15] MEDS: Potassium Chloride/H20 10 MEQ/100 ML PIGGYBACK 100 MEQ IV ×4 (17:04→22:08)
[2024-04-15 18:20] LABS: Influenza A PCR NEGATIVE (Negative); Influenza B PCR NEGATIVE (Negative); Resp Syncy Virus RNA Qual PCR NEGATIVE (Negative); SARS COV2 PCR INHOUSE NEGATIVE (Negative)
[2024-04-15] MEDS: iohexoL 350 MG/ML 100 ML INFUS..BTL IV (18:30)
--- NOTE | 2024-04-15 21:17 | PC.NURSE ---
Pt taken to u/s. Ab ordered to be administered once pt returns from u/s.
--- NOTE | 2024-04-15 21:52 | PHA.MEDREC ---
Addendum entered by Andrey Ramírez RPh 04/15/24 22:02: Reviewed by [facility] Original Note: Pharmacy Consult ? Medication Reconciliation Pharmacy has completed the medication reconciliation. Spoke to patient to confirm med list.
[2024-04-15] MEDS: metroNIDAZOLE/NS 500 MG/100 ML PIGGYBACK 100 MG IV (22:08)
[2024-04-15] MEDS: levoFLOXacin/D5W 750 MG/150 ML PIGGYBACK 100 MG IV (22:08)
--- NOTE | 2024-04-15 22:21 | PM.IMHP ---
History of Present Illness Date of Service: 04/15/24 Attending physician on admission: Yoni Mitchell Chief Complaint: Shortness of breaths Cathie Arguello is a 58 years old woman with past medical history significant for UC, fibromyalgia and over reactive bladder presents to the emergency department complaining of multiple symptoms including shortness on breath, productive cough of yellowish sputum, chest tightness, palpitations suggestive fever, chills, sweats, vaginal spotting + yellowish discharge, LLQ pain, RLQ pain radiating to the back, pain with urination, occasional rectal bleeding, nausea, vomiting and soft stools (this is normal to her). Patient denied alcohol abuse. She has an ongoing tobacco smoker and smokes 1 pack per day, smokes and consumes marijuana edible occasionally. Denies illicit drug use. In the ED, she was found to have sinus tachycardia, tachypnea and oxygen saturation of 88% on room air. She is currently requiring 2 liters/minute supplemental oxygen via nasal cannula. Blood workup was remarkable for leukocytosis of 12.7, hemoglobin 16.7 and platelets 196. There is hypokalemia 2.9, hyponatremia 130 and hypomagnesemia 1.4. Bilirubin is slightly elevated 1.2, but other LFTs are normal. BNP is 24 and troponin is 5.6. Urinalysis is not available. Viral testing is negative for COVID-19, influenza and RSV. Chest, abdomen pelvis CT scan showed marked thickening of the sigmoid colon with extensive diverticular changes without drainable fluid collections, possibly representing mild diverticulitis. It also showed finding possible secondary to hydro/pyosalpinx. Pelvic ultrasound done but results still pending. Chest CTA showed no PE, however showed findings a suggestive of interstitial and alveolar pulmonary edema. ECGs showed sinus tachycardia associated with lung bundle branch block which seems to be new. ECG was repeated after resolution of tachycardia and showed normal sinus rhythm with a heart rate of 76 beats per minute, with T-wave inversions in the anterior and inferior leads, QT is prolonged with 510 msec. TTE showed EF of 35-40% with impaired relaxation filling pattern. ED tx: Metoprolol 5 mg IV, DuoNeb, magnesium 2 g IV, potassium 20 mEq p.o., KCl IV, metoprolol 25 mg p.o. daily, metronidazole 500 mg IV, Levaquin 700 mg IV, magnesium sulfate 2 g IV Review of Systems Review of Systems: All 12 systems were reviewed and normal except as noted in HPI. [facility] Medical History Hx of sigmoidoscopy Pyelonephritis Nephrolithiasis Ureterolithiasis Insomnia History of hypertension Tobacco dependence Urinary incontinence Lumbar spinal stenosis Cervical spondylosis Lumbar radiculopathy Fibromyalgia Degenerative joint disease of spine Family History Father Esophageal cancer Mother Diabetes mellitus Maternal Grandfather Diabetes mellitus Surgical History H/O colonoscopy History of facial surgery History of salpingectomy History of hip surgery History of right knee surgery Social History Household Members: None Household Members Other:: Patient lives by herself Housing: House Do you presently have visiting nurse or other home services: No Alcohol intake: current Alcohol intake frequency: 3 or more drinks per day Alcohol type: beer Patient Tobacco Use Status: Current everyday Tobacco user Tobacco use type: Cigarette Cigarette Packs Per Day: 1 Cigarettes Per Day: 20.0 Years Smoked: 30 Smoked in Last 30 Days: Yes Use of substances other than those prescribed or required for medical reasons: No Substance Use Type: Marijuana Advance Directives: Yes Advance Directives on File: Yes Advance Directives Date on File: 05/28/23 Do you have a plan to hurt others: No Plan Nutrition Risks: No Nutritional Risk service: No Sexual orientation: Straight/Heterosexual Gender identity: Female Meds Allergies Allergy/AdvReac Type Severity Reaction Status Date / Time amoxicillin [From Augmentin] Allergy Intermediate Vomiting Verified 04/15/24 15:00 clavulanic acid Allergy Intermediate Vomiting Verified 04/15/24 15:00 [From Augmentin] nitrofurantoin AdvReac Severe Shortness Verified 04/15/24 15:16 of Breath Active Medications: Current Medications Acetaminophen (Acetaminophen 325 Mg Tablet) 975 mg PO Q6H PRN PRN Reason: Pain, Mild (Pain Scale 1-3), fever or headache Aspirin (Aspirin 81 Mg Tab.Chew) 324 mg PO ONCE STA Stop: 04/15/24 22:21 Aspirin (Aspirin Enteric Coated 81 Mg Tablet.Dr) 81 mg PO DAILY ELFEGO Heparin Sodium (Porcine) (Heparin Sodium,Porcine 5,000 Unit/Ml Vial) 5,000 unit SUBCUT Q8H [facility] Levofloxacin (Levaquin) 750 mg in 150 mls @ 100 mls/hr IV ONCE ONE Stop: 04/15/24 22:41 Last Admin: 04/15/24 22:08 Dose: 100 mls/hr Potassium Chloride/Sodium Chloride (Kcl 40 Meq In 0.9 % Sodium Chl) 40 meq in 1,000 mls @ 75 mls/hr IVCONT .[id number] [facility] Melatonin (Melatonin 3 Mg Tablet) 6 mg PO BEDTIME PRN PRN Reason: Insomnia Prochlorperazine Edisylate (Prochlorperazine Edisylate 10 Mg/2 Ml Vial) 5 mg IVPUSH Q6H PRN PRN Reason: Nausea and Vomiting Sodium Chloride (0.9 % Sodium Chloride Flush 3 Ml Syringe) 3 ml IVFLUSH QSHIFT [facility] Home Medications ?Medication ?Instructions ?Recorded ?Confirmed ?Last Taken ?Type calcium carbonate (Oyster Shell 500 mg PO BID 02/22/23 04/15/24 04/15/24 History Calcium) cholecalciferol (vitamin D3) 25 25 mcg PO DAILY 02/22/23 04/15/24 04/15/24 History mcg (1,000 unit) tablet Physical Exam Vital Signs and Narrative: Vital Signs: Last Vital Signs Temp 98.0 F 04/15/24 22:18 Pulse 78 04/15/24 22:18 Resp 22 H 04/15/24 22:18 BP 104/70 04/15/24 22:18 Pulse Ox 96 04/15/24 22:18 O2 Del Method Nasal Cannula 04/15/24 22:18 O2 Flow Rate 2 04/15/24 22:18 BMI result Body Mass Index 20.6 Constitutional - Awake and Alert, No apparent distress. Cooperative. HEENT - Normocephalic. Normal sclerae. Heart - RRR, No murmurs. Lungs - Normal lung expansion, Normal respiratory effort, No respiratory distress. Tachypnea. Bilateral rhonchi. No wheezing. No crackles. Abdomen - left lower quadrant right lower quadrant tenderness, nondistended; increased BS; No rebound or guarding Extremities - no calf tenderness bilaterally, no swelling Musculoskeletal - Normal inspection, normal ROM Skin - Warm/Dry Neurological - Alert & oriented x3. No focal weakness grossly noted. Normal speech. Psychological - Appropriate affect Results Labs 04/15/24 15:10 04/15/24 15:10 Labs: Laboratory Results - last 24 hr 04/15/24 04/15/24 04/15/24 15:10 15:35 17:34 MCV 94.7 MCH 35.1 H MCHC 37.0 H RDW 12.6 Plt Count 196 D MPV 9.2 L Immature Gran % (Auto) 0.5 H Neut % (Auto) 83.6 H Lymph % (Auto) 5.[address] [place] % (Auto) 7.9 Eos % (Auto) 2.0 Baso % (Auto) 0.4 Lymph # (Auto) 0.[address] [place] # (Auto) 1.0 Eos # (Auto) 0.3 Baso # (Auto) 0.1 Abs Immat Gran (auto) 0.06 H Absolute Neuts (auto) 10.6 H Absolute Nucleated RBC 0.000 Nucleated RBC % (auto) 0.0 D-Dimer High Sensitivty 302 Anion Gap 15 Estim Creat Clear Calc 79.8 Estimated GFR > 60 Random Glucose 120 H Calcium 10.2 Magnesium 1.4 L* Total Bilirubin 1.2 H AST 19 ALT 16 Alkaline Phosphatase 77 Troponin I High Sens 5.9 B-Natriuretic Peptide 24 Total Protein 8.3 H Albumin 4.1 Influenza Type A (PCR) NEGATIVE Influenza Type B (PCR) NEGATIVE RSV RNA Qual (PCR) NEGATIVE SARS-CoV-2 RNA (RT-PCR) NEGATIVE Imaging Radiologist's Impressions: Impressions Chest X-Ray 04/15/24 15:31 IMPRESSION: Mild reticular nodular densities right lung base. No prior studies are available for comparison to assess if this is a chronic finding. Abdomen/Pelvis CT 04/15/24 18:59 IMPRESSION: 1. Marked thickening of the sigmoid with extensive diverticular changes. No extraluminal air or drainable fluid collections are seen. Findings could represent mild diverticulitis. Similar appearances have been seen in the past. 2. There is a structure in the left adnexa which appears somewhat tubular. This may be a dilated tube with enhancing wall, possibly hydro-/pyosalpinx. Transabdominal and more importantly endovaginal pelvic ultrasound is recommended for further evaluation. 3. Other incidental findings as described above. Fleischner guidelines were followed. Chest CTA 04/15/24 18:59 IMPRESSION: 1. No evidence of pulmonary emboli. 2. Interstitial prominence with Niyah B-lines and dependent infiltrates and groundglass changes at the lung bases, right greater than left. Findings are suggestive of interstitial and alveolar pulmonary edema. Infectious etiologies would be another possibility although considered to be much less likely VTE: negative. Assessment and Plan (1) Cardiomyopathy: Qualifiers: Cardiomyopathy type: unspecified Qualified Code(s): I42.9 - Cardiomyopathy, unspecified Status: Acute (2) Diverticulitis large intestine: Qualifiers: Diverticulitis bleeding: without bleeding Diverticulitis complication: without perforation or abscess Qualified Code(s): K57.32 - Diverticulitis of large intestine without perforation or abscess without bleeding Status: Acute (3) Hyponatremia: Status: Acute Plan Cathie Arguello is a 58 years old woman admitted with: Hypoxic respiratory failure, suspected underlying COPD/acute bronchitis associated with underlying systolic congestive heart failure (new diagnosis) without decompensation. Admit to hospitalist service. Telemetry. Pulse oximetry. Supplemental oxygen to keep oxygen saturation above 90%. IV steroids and bronchodilator therapy. IV antibiotic therapy: Doxycycline. Left bundle branch block, new, while having sinus tachycardia associated with chest pain. First troponin negative. Repeat troponin now. Repeat/recent ECG NSR with T-wave inversion in the anterior and inferior leads. Start treatment with aspirin. Check lipid panel and hemoglobin A1c. Cardiology consult obtained by ED. Systolic congestive heart failure, doubt acute decompensation. BNP is normal. TTE done today showed significant congestive heart failure, EF 35-40%. Acute diverticulitis. Continue treatment with Flagyl. Start ceftriaxone. Discontinue Levaquin due to prolonged QT. Left adnexa structure. Possible small abscess in the pelvis, tubo-ovarian abscess less likely. Continue antibiotic therapy with Flagyl, ceftriaxone and doxycycline. Multiple electrolyte imbalances: Hyponatremia, hypomagnesemia and hypokalemia. Replete as needed. Continue to monitor electrolytes. Continue gentle IV fluids. Prolonged QT, likely secondary to electrolyte imbalances. Telemetry. Dysuria. Check urinalysis. Over reactive bladder. Continue Myrbetriq. Tobacco smoking. Tobacco cessation education. DVT prophylaxis: Heparin Code status: Full Patient will need hospitalization for at least 2 midnights for hypoxic respiratory failure treatment with supplemental oxygen, bronchodilator therapy, IV steroids and IV antibiotics. Patient also will need evaluation by Cardiology Service. Quality Stroke Does the patient have a stroke diagnosis?: No VTE Prior VTE?: No VTE Risk Level:: Medical - moderate - high VTE Device Contraindication: Treatment Not Indicated VTE Drug Contraindication: N/A - Med Ordered
[2024-04-15] MEDS: Albuterol/Iprat 2.5/0.5MG 3 ML AMPUL.NEB INHALE (22:33)
[2024-04-15 23:00] LABS: Thyroid Stimulating Hormone 2.02 uIU/mL (0.32-4.0)
[2024-04-15 23:02] LABS: Anion Gap 15 (12-20); Blood Urea Nitrogen 7 mg/dL (9-16); Calcium 8.8 mg/dL (8.4-10.2); Carbon Dioxide 24 mmol/L (22-29); Chloride 97 mmol/L (96-108); Creatinine Clr Calc Pharmacy 81.2; Estimated Glomerular Filt Rate > 60; Glucose Random 151 mg/dL (60-115); Magnesium 2.8 mg/dL (1.6-2.6); Potassium 3.4 mmol/L (3.3-5.1); Sodium 133 mmol/L (135-145)
[2024-04-15 23:10] LABS: Troponin-I High Sensitivity 2.8 ng/L (<3.5-17.0)
[2024-04-15] MEDS: methylPREDNISolone Sod Succ 125 MG/2 ML VIAL 80 MG IVPUSH (23:17)
[2024-04-15] MEDS: KCl 40 mEq in 0.9 % Sodium Chl 40 MEQ/1,000 ML IV.SOLN 75 MEQ IVCONT (23:17)
[2024-04-15] MEDS: Aspirin 81 MG TAB.CHEW 324 MG PO (23:18)
[2024-04-15] MEDS: 0.9 % Sodium Chloride Flush 3 ML SYRINGE IVFLUSH (23:21)
[2024-04-15] MEDS: cefTRIAXone sodium 1 GM in 0.9 % Sodium Chloride 50 ML IV (23:52)
[2024-04-16] VITALS (8 sets, daily range): BP systolic 93–144; BP diastolic 66–88; PULSE 69–90; RESP 16–26; TEMP 36.2–36.6; O2SAT 95–98
[2024-04-16] MEDS: Doxycycline Hyclate 100 MG in 0.9 % Sodium Chloride 250 ML 166.67 MG IV ×3 (00:56→23:26)
[2024-04-16 05:06] LABS: MANUAL DIFF FLAG NO
[2024-04-16 05:07] LABS: Basophils Percent Auto 0.4 % (0-2); Eosinophils Absolute Auto 0.3 X10*3/uL (0.0-0.4); Eosinophils Percent Auto 4.4 % (0-4); Hematocrit 40.8 % (37.0-47.0); Hemoglobin 14.4 g/dl (12.0-16.0); Imm Gran Abs Auto 0.04 X10*3/uL (0.00-0.03); Imm Gran Pct Auto 0.5 % (0.0-0.4); Lymphocytes Absolute Auto 0.6 X10*3/uL (1.2-4.9); Lymphocytes Percent Auto 8.1 % (20-40); Mean Corpuscular HGB Conc 35.3 g/dl (31.0-35.0); Mean Corpuscular Hemoglobin 34.6 pg (27.0-33.0); Mean Corpuscular Volume 98.1 fL (80.0-98.0); Mean Platelet Volume 9.6 fL (9.4-12.3); Monocytes Absolute Auto 0.8 X10*3/uL (0.1-1.2); Monocytes Percent Auto 10.7 % (2-11); Neutrophils Absolute Auto 5.7 x10*3/uL (2.0-8.3); Neutrophils Percent Auto 75.9 % (45-73); Platelet Count 194 X10*3/uL (160-400); Red Blood Count 4.16 X10*6/uL (4.20-5.50); Red Cell Distribution Width 12.9 % (11.0-16.0); White Blood Count 7.5 X10*3/uL (4.8-10.8)
[2024-04-16 05:26] LABS: Anion Gap 13 (12-20); Blood Urea Nitrogen 6 mg/dL (9-16); Calcium 8.7 mg/dL (8.4-10.2); Carbon Dioxide 20 mmol/L (22-29); Chloride 106 mmol/L (96-108); Cholesterol 122 mg/dL (<200); Creatinine Clr Calc Pharmacy 90.4; Estimated Glomerular Filt Rate > 60; Glucose Random 113 mg/dL (60-115); HDL Cholesterol 27 mg/dL (>40); LDL Cholesterol Calculated 74 mg/dL (<100); Magnesium 2.3 mg/dL (1.6-2.6); Potassium 3.7 mmol/L (3.3-5.1); Sodium 135 mmol/L (135-145); Triglycerides 109 mg/dL (<150)
[2024-04-16 05:48] LABS: Estimated Average Glucose 88 mg/dL; Hemoglobin A1c % 4.7 % (<6.0)
[2024-04-16] MEDS: metroNIDAZOLE/NS 500 MG/100 ML PIGGYBACK 100 MG IV ×3 (06:19→21:32)
[2024-04-16 07:10] LABS: Reflex LDLD? No
--- NOTE | 2024-04-16 09:48 | PM.PNCARD ---
Subjective Subjective Date of Service: 04/16/24 Principal diagnosis: Cardiomyopathy, intra-abdominal abscess Interval history: Patient's heart rate settled down since yesterday. However she remains short of breath with minimal exertion. She also has quite quick oxygen desaturation. BNP was still normal, she did not receive any diuresis although CT chest was suggestive of congestive heart failure. She has no other symptoms of congestive heart failure. Continues to have left flank discomfort. Abdominal CT and ultrasound suggestive of pelvic abscess Review of Systems Constitutional: Reports malaise Cardiovascular: Denies chest pain, Denies leg edema, Denies lightheadedness, Denies palpitations and Reports dyspnea on exertion Respiratory: Reports dyspnea on exertion Genitourinary: Reports flank pain Musculoskeletal: Reports no additional musculoskeletal complaints Endocrine: Denies palpitations Physical Exam Vital Signs: Last Vital Signs Temp 97.9 F 04/16/24 07:30 Pulse 77 04/16/24 07:30 Resp 20 04/16/24 07:30 BP 133/88 04/16/24 07:30 Pulse Ox 96 04/16/24 07:30 O2 Del Method Nasal Cannula 04/16/24 07:30 O2 Flow Rate 2 04/16/24 07:30 BMI result Body Mass Index 20.6 Const General: cooperative, comfortable and alert Nutritional Appearance: thin and underweight Orientation/consciousness: patient oriented x3 Neck Neck: Yes trachea midline, Yes supple and Yes no JVD Resp Effort & Inspection: normal respiratory effort Auscultation: diminished lung sounds and bronchovesicular breath sounds Cardio Jugular venous distension: no JVD Rate: regular rate Rhythm: regular rhythm Heart sounds: S1 normal heart sound present, S2 normal heart sound present, no click, no gallops and no murmurs GI Auscultation: normal bowel sounds Neuro General: patient oriented x3 and no focal motor deficits Extrem General: Yes no clubbing, cyanosis or edema Objective Labs and Meds 04/16/24 04:33 04/16/24 04:33 Lab results: Laboratory Results - last 24 hr 04/15/24 04/15/24 04/15/24 15:10 15:35 17:34 WBC 12.7 H RBC 4.76 Hgb 16.7 H Hct 45.1 MCV 94.7 MCH 35.1 H MCHC 37.0 H RDW 12.6 Plt Count 196 D MPV 9.2 L Immature Gran % (Auto) 0.5 H Neut % (Auto) 83.6 H Lymph % (Auto) 5.6 L [place] % (Auto) 7.9 Eos % (Auto) 2.0 Baso % (Auto) 0.4 Lymph # (Auto) 0.7 L [place] # (Auto) 1.0 Eos # (Auto) 0.3 Baso # (Auto) 0.1 Abs Immat Gran (auto) 0.06 H Absolute Neuts (auto) 10.6 H Absolute Nucleated RBC 0.000 Nucleated RBC % (auto) 0.0 D-Dimer High Sensitivty 302 Sodium 130 L Potassium 2.9 L* Chloride 95 L Carbon Dioxide 23 Anion Gap 15 BUN 8 L Creatinine 0.60 Estim Creat Clear Calc 79.8 Estimated GFR > 60 Random Glucose 120 H Estimat Average Glucose Hemoglobin A1c % Calcium 10.2 Magnesium 1.4 L* Total Bilirubin 1.2 H AST 19 ALT 16 Alkaline Phosphatase 77 Troponin I High Sens 5.9 B-Natriuretic Peptide 24 Total Protein 8.3 H Albumin 4.1 Triglycerides Cholesterol LDL Cholesterol, Calc HDL Cholesterol TSH 2.02 Influenza Type A (PCR) NEGATIVE Influenza Type B (PCR) NEGATIVE RSV RNA Qual (PCR) NEGATIVE SARS-CoV-2 RNA (RT-PCR) NEGATIVE 04/15/24 04/16/24 22:41 04:33 WBC 7.5 RBC 4.16 L Hgb 14.4 Hct 40.8 MCV 98.1 H MCH 34.6 H MCHC 35.3 H RDW 12.9 Plt Count 194 MPV 9.6 Immature Gran % (Auto) 0.5 H Neut % (Auto) 75.9 H Lymph % (Auto) 8.1 L [place] % (Auto) 10.7 Eos % (Auto) 4.4 H Baso % (Auto) 0.4 Lymph # (Auto) 0.6 L [place] # (Auto) 0.8 Eos # (Auto) 0.3 Baso # (Auto) 0.0 Abs Immat Gran (auto) 0.04 H Absolute Neuts (auto) 5.7 Absolute Nucleated RBC 0.000 Nucleated RBC % (auto) 0.0 D-Dimer High Sensitivty Sodium 133 L 135 Potassium 3.4 3.7 Chloride 97 106 Carbon Dioxide 24 20 L Anion Gap 15 13 BUN 7 L 6 L Creatinine 0.59 0.53 Estim Creat Clear Calc 81.2 90.4 Estimated GFR > 60 > 60 Random Glucose 151 H 113 Estimat Average Glucose 88 Hemoglobin A1c % 4.7 Calcium 8.8 D 8.7 Magnesium 2.8 H 2.3 Total Bilirubin AST ALT Alkaline Phosphatase Troponin I High Sens 2.8 D B-Natriuretic Peptide Total Protein Albumin Triglycerides 109 Cholesterol 122 LDL Cholesterol, Calc 74 HDL Cholesterol 27 L TSH Influenza Type A (PCR) Influenza Type B (PCR) RSV RNA Qual (PCR) SARS-CoV-2 RNA (RT-PCR) Imaging Radiologist's impression: Impressions Chest X-Ray 04/15/24 15:31 IMPRESSION: Mild reticular nodular densities right lung base. No prior studies are available for comparison to assess if this is a chronic finding. Abdomen/Pelvis CT 04/15/24 18:59 IMPRESSION: 1. Marked thickening of the sigmoid with extensive diverticular changes. No extraluminal air or drainable fluid collections are seen. Findings could represent mild diverticulitis. Similar appearances have been seen in the past. 2. There is a structure in the left adnexa which appears somewhat tubular. This may be a dilated tube with enhancing wall, possibly hydro-/pyosalpinx. Transabdominal and more importantly endovaginal pelvic ultrasound is recommended for further evaluation. 3. Other incidental findings as described above. Fleischner guidelines were followed. Chest CTA 04/15/24 18:59 IMPRESSION: 1. No evidence of pulmonary emboli. 2. Interstitial prominence with Niyah B-lines and dependent infiltrates and groundglass changes at the lung bases, right greater than left. Findings are suggestive of interstitial and alveolar pulmonary edema. Infectious etiologies would be another possibility although considered to be much less likely VTE: negative. Pelvic/Transvag US 04/15/24 21:33 IMPRESSION: 1. Normal ultrasound of uterus. 2. Normal right and left ovary. 3. Thick-walled hypervascular structure in the left adnexa measuring 2.6 x 2.8 x 1.5 cm. This correlates to the rim-enhancing structure in the left adnexa on CT abdomen pelvis April 15, 2024. Given the acute process of the adjacent sigmoid colon, this is likely a small abscess in the pelvis. A tubo-ovarian abscess is less likely. Progress Note: A&P Assessment and plan (1) Cardiomyopathy: Status: Acute Assessment and Plan: Cardiomyopathy which either could be alcohol related and/or stress related from her intra-abdominal process. Her tachycardia has improved with IV hydration and metoprolol therapy. Continue metoprolol therapy for neurohormonal modulation. Clinically she does not appear to be in congestive heart failure. Chest CTA findings are unclear question acute lung injury. I would suggest to continue to hydrate if she requires. She has significant intra-abdominal process that needs attention. Discussed with hospitalist team and surgery and electric blanket packer will be involved in her care. Add valsartan 20 mg b.i.d. for neurohormonal modulation if blood pressure allows. Continue to treat underlying pulmonary issues with bronchodilators and continue oxygen therapy given that she desaturates quickly. Incentive spirometry should be considered. Will follow with you Time Spent With Patient Time: Total time managing care of this patient today ____ minutes. Progress Note: Quality Stroke Does the patient have a stroke diagnosis?: No Procedures Date of Service Date of Service: 04/16/24
[2024-04-16] MEDS: Mirabegron 50 MG TAB.ER.24H PO (10:21)
[2024-04-16] MEDS: Aspirin Enteric Coated 81 MG TABLET.DR PO (10:21)
[2024-04-16] MEDS: Cholecalciferol (Vitamin D3) 25 MCG TABLET PO (10:22)
[2024-04-16] MEDS: Heparin Sodium,Porcine 5,000 UNIT/ML VIAL 5000 UNIT SUBCUT ×3 (10:23→23:27)
--- NOTE | 2024-04-16 10:50 | MHC.CM.PN ---
Pt lives alone, she does not have home health services or DME. HCP is on file, her daughter, Nyasia. Pt. can arrange transport home at [place]. PCP confirmed: Paresh Strong. DCP: home, self care. CM to follow for DC needs.
--- NOTE | 2024-04-16 11:16 | HO.PM.IMPN ---
Subjective Subjective Date of Service: 04/17/24 Interval History: Complaining of bilateral lower quadrant abdominal pain, worse in left lower quadrant, complaining of intermittent yellowish vaginal discharge, denies bleeding, denies fever, no chills, denies chest pain or palpitations, denies nausea,or vomiting, tolerating diet. Complaining of mild shortness of breath and cough productive of white phlegm. Shortness of breath worse with activity and humid weather. Tele monitor showed no recurrent sinus tachycardia . Review of Systems All other system reviewed and are negative Physical Exam Vital Signs: Vital Signs: Last Vital Signs Temp 97.8 F 04/16/24 10:18 Pulse 76 04/16/24 10:18 Resp 26 H 04/16/24 10:18 BP 121/78 04/16/24 10:18 Pulse Ox 96 04/16/24 10:18 O2 Del Method Nasal Cannula 04/16/24 10:18 O2 Flow Rate 2 04/16/24 10:18 BMI result Body Mass Index 20.6 Const: Other: General awake alert x3, in no acute distress. Anicteric sclera Neck no JVD. CVS regular rate rhythm, Respiratory lungs coarse breath sounds at bases, no respiratory distress, no wheeze, no rhonchi. Gastrointestinal abdomen soft, right and left lower quadrant tenderness, bowel sounds audible, no guarding , no rigidity. Extremities no edema. Neuro non focal Skin no rash Psych appropriate affect Objective Data Active Medications Acetaminophen (Acetaminophen 325 Mg Tablet) 975 mg PO Q6H PRN PRN Reason: Pain, Mild (Pain Scale 1-3), fever or headache Aspirin (Aspirin Enteric Coated 81 Mg Tablet.) 81 mg PO DAILY [facility] Last Admin: 04/16/24 10:21 Dose: 81 mg Documented By: CHRISTINA Heparin Sodium (Porcine) (Heparin Sodium,Porcine 5,000 Unit/Ml Vial) 5,000 unit SUBCUT Q8H [facility] Last Admin: 04/16/24 10:23 Dose: 5,000 unit Documented By: CHRISTINA Potassium Chloride/Sodium Chloride (Kcl 40 Meq In 0.9 % Sodium Chl) 40 meq in 1,000 mls @ 75 mls/hr IVCONT .[id number] [facility] Last Admin: 04/15/24 23:17 Dose: 75 mls/hr Documented By: MICHAEL Ceftriaxone Sodium 1 gm/ (Sodium Chloride) 50 mls @ 100 mls/hr IV Q24H [facility] Last Infusion: 04/16/24 00:22 Dose: Infused Documented By: MICHAEL Metronidazole (Flagyl) 500 mg in 100 mls @ 100 mls/hr IV Q8H [facility] Last Infusion: 04/16/24 07:30 Dose: Infused Documented By: CHRISTINA Doxycycline Hyclate 100 mg/ (Sodium Chloride) 250 mls @ 166.67 mls/hr IV Q12H [facility] Last Infusion: 04/16/24 02:34 Dose: Infused Documented By: MICHAEL Melatonin (Melatonin 3 Mg Tablet) 6 mg PO BEDTIME PRN PRN Reason: Insomnia Mirabegron (Mirabegron 50 Mg Tab.Er.24h) 50 mg PO DAILY [facility] Last Admin: 04/16/24 10:21 Dose: 50 mg Documented By: CHRISTINA Prochlorperazine Edisylate (Prochlorperazine Edisylate 10 Mg/2 Ml Vial) 5 mg IVPUSH Q6H PRN PRN Reason: Nausea and Vomiting Sodium Chloride (0.9 % Sodium Chloride Flush 3 Ml Syringe) 3 ml IVFLUSH QSHIFT [facility] Last Admin: 04/16/24 08:02 Dose: Not Given Documented By: CHRISTINA Non-Admin Reason: IV Running Vitamin D (Cholecalciferol (Vitamin D3) 25 Mcg Tablet) 25 mcg PO DAILY [facility] Last Admin: 04/16/24 10:22 Dose: 25 mcg Documented By: CHRISTINA Labs 04/16/24 04:33 04/16/24 04:33 Labs: Laboratory Results - last 24 hr 04/15/24 04/15/24 04/15/24 15:10 15:35 17:34 MCV 94.7 MCH 35.1 H MCHC 37.0 H RDW 12.6 Plt Count 196 D MPV 9.2 L Immature Gran % (Auto) 0.5 H Neut % (Auto) 83.6 H Lymph % (Auto) 5.6 L [place] % (Auto) 7.9 Eos % (Auto) 2.0 Baso % (Auto) 0.4 Lymph # (Auto) 0.7 L [place] # (Auto) 1.0 Eos # (Auto) 0.3 Baso # (Auto) 0.1 Abs Immat Gran (auto) 0.06 H Absolute Neuts (auto) 10.6 H Absolute Nucleated RBC 0.000 Nucleated RBC % (auto) 0.0 D-Dimer High Sensitivty 302 Anion Gap 15 Estim Creat Clear Calc 79.8 Estimated GFR > 60 Random Glucose 120 H Estimat Average Glucose Hemoglobin A1c % Calcium 10.2 Magnesium 1.4 L* Total Bilirubin 1.2 H AST 19 ALT 16 Alkaline Phosphatase 77 Troponin I High Sens 5.9 B-Natriuretic Peptide 24 Total Protein 8.3 H Albumin 4.1 Triglycerides Cholesterol LDL Cholesterol, Calc HDL Cholesterol TSH 2.02 Influenza Type A (PCR) NEGATIVE Influenza Type B (PCR) NEGATIVE RSV RNA Qual (PCR) NEGATIVE SARS-CoV-2 RNA (RT-PCR) NEGATIVE 04/15/24 04/16/24 22:41 04:33 MCV 98.1 H MCH 34.6 H MCHC 35.3 H RDW 12.9 Plt Count 194 MPV 9.6 Immature Gran % (Auto) 0.5 H Neut % (Auto) 75.9 H Lymph % (Auto) 8.1 L [place] % (Auto) 10.7 Eos % (Auto) 4.4 H Baso % (Auto) 0.4 Lymph # (Auto) 0.6 L [place] # (Auto) 0.8 Eos # (Auto) 0.3 Baso # (Auto) 0.0 Abs Immat Gran (auto) 0.04 H Absolute Neuts (auto) 5.7 Absolute Nucleated RBC 0.000 Nucleated RBC % (auto) 0.0 D-Dimer High Sensitivty Anion Gap 15 13 Estim Creat Clear Calc 81.2 90.4 Estimated GFR > 60 > 60 Random Glucose 151 H 113 Estimat Average Glucose 88 Hemoglobin A1c % 4.7 Calcium 8.8 D 8.7 Magnesium 2.8 H 2.3 Total Bilirubin AST ALT Alkaline Phosphatase Troponin I High Sens 2.8 D B-Natriuretic Peptide Total Protein Albumin Triglycerides 109 Cholesterol 122 LDL Cholesterol, Calc 74 HDL Cholesterol 27 L TSH Influenza Type A (PCR) Influenza Type B (PCR) RSV RNA Qual (PCR) SARS-CoV-2 RNA (RT-PCR) Assessment and Plan (1) Cardiomyopathy: Status: Acute (2) Sinus tachycardia: Status: Acute (3) Diverticulitis large intestine: Status: Acute Plan Cathie Arguello is a 58 years old woman admitted with: Acute Hypoxic respiratory failure, suspected underlying COPD/acute bronchitis CTA chest showed no PE, but showed dependent infiltrates/ground-glass changes right greater than left suggestive of interstitial/alveolar pulmonary edema and less likely infectious Clinically no evidence of systolic congestive heart failure, normal troponin and BNP Add incentive spirometry, wean oxygen as tolerated not on home oxygen strongly recommend to abstain from smoking. Seen by cardiology they recommend to add valsartan 25 b.i.d. if blood pressure allows, recommend to use IV fluid if needed. Will treat underlying infection. Sinus tachycardia with underlying left bundle branch block unknown duration Normal troponin x2, denies chest pain, LDL 122, hemoglobin A1c less than 6, echo showed EF 35-40%, moderate global hypokinesis and impaired relaxation filling pattern Cardiomyopathy with no acute evidence of CHF Being followed by Cardiology. Acute diverticulitis. Continue treatment with Flagyl and IV ceftriaxone started on 04/15. Left adnexa structure. Possible small abscess in the pelvis, tubo-ovarian abscess less likely. Continue antibiotic therapy with Flagyl, ceftriaxone and doxycycline. Patient had recent negative STD screen, General surgery and advanced practice nurse psychotherapist consult obtained. Acute hypomagnesemia repleted and normalized Acute hypokalemia repleted Prolonged QT, likely secondary to electrolyte imbalances. Dysuria. UA showed no bacteria. Over reactive bladder. Continue Myrbetriq. Tobacco smoking. Tobacco cessation education. DVT prophylaxis: Heparin Code status: Full Patient will need hospitalization for at least 2 midnights for hypoxic respiratory failure treatment with supplemental oxygen, bronchodilator therapy, IV steroids and IV antibiotics. Patient also will need evaluation by Cardiology Service as well as OBGYN. Quality Stroke Does the patient have a stroke diagnosis?: No VTE Prior VTE?: No VTE Risk Level:: Medical - moderate - high VTE Device Contraindication: Treatment Not Indicated VTE Drug Contraindication: N/A - Med Ordered
[2024-04-16] MEDS: KCl 40 mEq in 0.9 % Sodium Chl 40 MEQ/1,000 ML IV.SOLN 75 MEQ IVCONT (12:01)
--- NOTE | 2024-04-16 13:58 | PM.CNGS ---
History of Present Illness Consult details Consult date: 04/16/24 Requesting physician: Sherrill Hernandez Narrative: 58-year-old female patient previously evaluated by me as an outpatient now presenting to the ED with complaints of shortness of breath. She initially presented with left lower quadrant pain which persists and was previously diagnosed with diverticulitis. She was being considered for a laparoscopic sigmoid resection because of her persistent symptoms however needed to be evaluated by obstetrics gynecology physician due to changes noted by the CT suggestive of a tubal fluid collection. She was evaluated by Melody Dumont from OBGYN last [place] and arrangements made for a pelvic ultrasound. Subsequent workup in the emergency department revealed an elevated WBC of 12.7. CT angio was negative for pulmonary embolism. Abdomen and pelvic CT was repeated again reveals an area of what appears to be diverticulitis with a fluid collection in the left lower quadrant possibly from the adnexa. Subsequent ultrasound of the pelvis reveals normal uterus and normal left and right ovary. A thick-walled hypervascular structure was noted in the left adnexa measuring 2.6 x 2.8 x 1.5 cm. This correlated with the rim enhanced structure in the left adnexa on CT. This was felt to be likely a small abscess in the pelvis although a tubo-ovarian abscess was less likely. She is mainly concerned about the persistent abdominal pain in the left lower abdomen and is anxious to proceed to a sigmoid colectomy. Consultation with Dr. Mandujano is pending. Review of Systems Review of Systems: Yes all other systems are reviewed and are negative PMFSH Past Medical History Medical History Hx of sigmoidoscopy Pyelonephritis Nephrolithiasis Ureterolithiasis Insomnia History of hypertension Tobacco dependence Urinary incontinence Lumbar spinal stenosis Cervical spondylosis Lumbar radiculopathy Fibromyalgia Degenerative joint disease of spine Family History Family History Father Esophageal cancer Mother Diabetes mellitus Maternal Grandfather Diabetes mellitus Surgical History Surgical History H/O colonoscopy History of facial surgery History of salpingectomy History of hip surgery History of right knee surgery Social History Social History Household Members: Family Household Members Other:: Patient lives by herself Housing: House Do you presently have visiting nurse or other home services: No Alcohol intake: current Alcohol intake frequency: 3 or more drinks per day Alcohol type: beer Patient Tobacco Use Status: Current everyday Tobacco user Tobacco use type: Cigarette Cigarette Packs Per Day: 1 Cigarettes Per Day: 20.0 Years Smoked: 30 Substance Use Type: Marijuana Advance Directives Date on File: 05/28/23 service: No Sexual orientation: Straight/Heterosexual Gender identity: Female Meds Allergies Allergy/AdvReac Type Severity Reaction Status Date / Time amoxicillin [From Augmentin] Allergy Intermediate Vomiting Verified 04/15/24 15:00 clavulanic acid Allergy Intermediate Vomiting Verified 04/15/24 15:00 [From Augmentin] nitrofurantoin AdvReac Severe Shortness Verified 04/15/24 15:16 of Breath Active Medications: Current Medications Acetaminophen (Acetaminophen 325 Mg Tablet) 975 mg PO Q6H PRN PRN Reason: Pain, Mild (Pain Scale 1-3), fever or headache Aspirin (Aspirin Enteric Coated 81 Mg Tablet.) 81 mg PO DAILY [facility] Last Admin: 04/16/24 10:21 Dose: 81 mg Heparin Sodium (Porcine) (Heparin Sodium,Porcine 5,000 Unit/Ml Vial) 5,000 unit SUBCUT Q8H [facility] Last Admin: 04/16/24 10:23 Dose: 5,000 unit Potassium Chloride/Sodium Chloride (Kcl 40 Meq In 0.9 % Sodium Chl) 40 meq in 1,000 mls @ 75 mls/hr IVCONT .[id number] [facility] Last Admin: 04/16/24 12:01 Dose: 75 mls/hr Ceftriaxone Sodium 1 gm/ (Sodium Chloride) 50 mls @ 100 mls/hr IV Q24H [facility] Last Infusion: 04/16/24 00:22 Dose: Infused Metronidazole (Flagyl) 500 mg in 100 mls @ 100 mls/hr IV Q8H [facility] Last Infusion: 04/16/24 07:30 Dose: Infused Doxycycline Hyclate 100 mg/ (Sodium Chloride) 250 mls @ 166.67 mls/hr IV Q12H [facility] Last Infusion: 04/16/24 13:50 Dose: Infused Melatonin (Melatonin 3 Mg Tablet) 6 mg PO BEDTIME PRN PRN Reason: Insomnia Mirabegron (Mirabegron 50 Mg Tab.Er.24h) 50 mg PO DAILY [facility] Last Admin: 04/16/24 10:21 Dose: 50 mg Prochlorperazine Edisylate (Prochlorperazine Edisylate 10 Mg/2 Ml Vial) 5 mg IVPUSH Q6H PRN PRN Reason: Nausea and Vomiting Sodium Chloride (0.9 % Sodium Chloride Flush 3 Ml Syringe) 3 ml IVFLUSH QSHIFT [facility] Last Admin: 04/16/24 08:02 Dose: Not Given Vitamin D (Cholecalciferol (Vitamin D3) 25 Mcg Tablet) 25 mcg PO DAILY [facility] Last Admin: 04/16/24 10:22 Dose: 25 mcg Home Medications ?Medication ?Instructions ?Recorded ?Confirmed ?Last Taken ?Type calcium carbonate ([place]yster [place] 500 mg PO BID 02/22/23 04/15/24 04/15/24 History Calcium) cholecalciferol (vitamin D3) 25 25 mcg PO DAILY 02/22/23 04/15/24 04/15/24 History mcg (1,000 unit) tablet Physical Exam Vital Signs: Vital Signs: Last Vital Signs Temp 97.1 F 04/16/24 11:40 Pulse 71 04/16/24 11:40 Resp 18 04/16/24 11:40 BP 138/83 04/16/24 11:40 Pulse Ox 97 04/16/24 11:40 O2 Del Method Nasal Cannula 04/16/24 11:40 O2 Flow Rate 2 04/16/24 11:40 BMI result Body Mass Index 20.0 Const: General: cooperative and no acute distress Nutritional Appearance: well nourished Orientation/consciousness: patient oriented x3 Limitations: no limitations HEENT: Head: Yes normocephalic and Yes atraumatic Ears: hearing grossly normal bilaterally Resp: Effort & Inspection: normal respiratory effort, no audible wheezes, no cough and no respiratory distress Cardio: Jugular venous distension: no JVD GI: Inspection: Yes normal to inspection Palpation (GI): Soft to palpation, Tenderness to palpation present (GI) in the RLQ; with no rebound tenderness, no guarding and not rigid Percussion: Yes normal to percussion Auscultation: normal bowel sounds Rectal Exam - Female: deferred Skin: Other: Warm, dry, no rash Neuro: General: patient oriented x3 Extrem: General: Yes no clubbing, cyanosis or edema Results Labs 04/16/24 04:33 04/16/24 04:33 Labs: Abnormal lab results 04/15/24 04/15/24 04/16/24 Range/Units 15:10 22:41 04:33 WBC 12.7 H (4.8-10.8) X10*3/uL RBC 4.16 L (4.20-5.50) X10*6/uL Hgb 16.7 H (12.0-16.0) g/dl MCV 98.1 H (80.0-98.0) fL MCH 35.1 H 34.6 H (27.0-33.0) pg MCHC 37.0 H 35.3 H (31.0-35.0) g/dl MPV 9.2 L (9.4-12.3) fL Immature Gran % (Auto) 0.5 H 0.5 H (0.0-0.4) % Neut % (Auto) 83.6 H 75.9 H (45-73) % Lymph % (Auto) 5.6 L 8.1 L (20-40) % Eos % (Auto) 4.4 H (0-4) % Lymph # (Auto) 0.7 L 0.6 L (1.2-4.9) X10*3/uL Abs Immat Gran (auto) 0.06 H 0.04 H (0.00-0.03) X10*3/uL Absolute Neuts (auto) 10.6 H (2.0-8.3) x10*3/uL Sodium 130 L 133 L (135-145) mmol/L Potassium 2.9 L* (3.3-5.1) mmol/L Chloride 95 L (96-108) mmol/L Carbon Dioxide 20 L (22-29) mmol/L BUN 8 L 7 L 6 L (9-16) mg/dL Random Glucose 120 H 151 H (60-115) mg/dL Magnesium 1.4 L* 2.8 H (1.6-2.6) mg/dL Total Bilirubin 1.2 H (0.0-1.0) mg/dL Total Protein 8.3 H (6.5-8.0) g/dL HDL Cholesterol 27 L (>40) mg/dL Short CBC 08/06/24 08/07/24 Range/Units 15:10 04:33 WBC 12.7 H 7.5 (4.8-10.8) X10*3/uL Hgb 16.7 H 14.4 (12.0-16.0) g/dl Hct 45.1 40.8 (37.0-47.0) % Plt Count 196 D 194 (160-400) X10*3/uL BMP 04/15/24 04/15/24 04/16/24 15:10 22:41 04:33 Sodium 130 L 133 L 135 Potassium 2.9 L* 3.4 3.7 Chloride 95 L 97 106 Carbon Dioxide 23 24 20 L BUN 8 L 7 L 6 L Creatinine 0.60 0.59 0.53 Calcium 10.2 8.8 D 8.7 Liver Function 04/15/24 Range/Units 15:10 Total Bilirubin 1.2 H (0.0-1.0) mg/dL AST 19 (5-31) U/L ALT 16 (0-31) U/L Alkaline Phosphatase 77 (39-117) U/L Albumin 4.1 (3.5-5.0) g/dL All other labs normal. Imaging Abdomen CT scan report/results: image reviewed CT scan - chest: image reviewed CT scan - pelvis: image reviewed US - pelvic: image reviewed Assessment and Plan (1) Diverticulitis large intestine: Qualifiers: Diverticulitis bleeding: without bleeding Diverticulitis complication: without perforation or abscess Qualified Code(s): K57.32 - Diverticulitis of large intestine without perforation or abscess without bleeding Status: Acute Plan 58-year-old female patient with a known history of sigmoid diverticulitis now returning to the ER with complaints of shortness of breath and abdominal pain in the left lower quadrant. A fluid collection in the left pelvis appears to be a possible abscess related to the sigmoid diverticulitis and less likely tubo-ovarian abscess. Will await Dr. Mandujano's consultation. Could potentially schedule a hand assisted laparoscopic sigmoid colectomy, possible open, possible colostomy with drainage of abscess collection, during this hospitalization. Patient expresses understanding and agrees with the plan. Procedures Date of Service Date of Service: 04/16/24
[2024-04-16] MEDS: Acetaminophen 325 MG TABLET 975 MG PO (14:03)
--- NOTE | 2024-04-16 14:04 | P.CONOB_ITS ---
RAIL GRINDER - CN: HPI Data of Consult Consult date: 04/16/24 Requesting Physician: Sherrill Hernandez MD Primary Care Provider: Paresh Strong MD Consult Narrative Narrative: I was consulted on Cathie Arguello who is a 58 year old female who presented to the emergency room yesterday complaining of multiple symptoms including shortness on breath, productive cough of yellowish sputum, chest tightness, palpitations suggestive fever, chills, sweats. The patient gives history multiple episodes of vaginal bleeding over the last few months associated with yellowish discharge, in addition to LLQ pain, RLQ pain radiating to the back. In the ED, she was found to have sinus tachycardia, tachypnea and oxygen saturation of 88% on room air. Chest, abdomen pelvis CT scan showed marked thickening of the sigmoid colon with extensive diverticular changes without drainable fluid collections, possibly representing mild diverticulitis. It also showed finding possible secondary to hydro/pyosalpinx. Pelvic ultrasound showed the following: UTERUS: Unremarkable. Uterus is retroverted and retroflexed. Uterus measures 6.2 x 1.9 x 4.1 cm. Endometrial thickness 0.2 cm ADNEXA: Ovarian vascularity:Doppler demonstrates both arterial and venous vascular flow in the right and left ovary. No evidence of ovarian torsion. Right Ovary: 2.1 x 0.8 x 2.1 cm. Volume 1.8 mL. Left Ovary: Left ovary measures 4.6 x 2.6 x 2.6 cm. Volume 15.7 mL. Anechoic follicle/cyst measuring 2.1 x 1.6 x 1.4 cm. There is a corpus luteum cyst with hypervascular rim in the ovary measuring 1 cm. Adjacent to the left ovary the left adnexa is a thick-walled structure with fluid centrally. The rogers hypervascular on color Doppler. This measures approximately 2.6 x 2.8 x 1.5 cm. This correlates to the rim-enhancing structure in the left adnexa on CT abdomen pelvis April 15, 2024. Given the acute process of the adjacent sigmoid colon colon this is likely a small abscess in the pelvis. A tubo-ovarian abscess is less likely. Cul-de-sac: No Fluid Chest CTA showed no PE Echocardiogram showed cardiomyopathy In the ED metronidazole 500 mg IV was started and continued Q 8 our, Levaquin 750 mg IV 1 dose was given Doxycycline 100 IV b.i.d. and ceftriaxone 1 g Q 24 were added later yesterday In the emergency room CBC showed a white count of 12.7 K , H and H 16.7/45.1 This a.m. CBC showed a white count was 7.5k, H&H 14.4/40.8 The patient was seen in the outpatient office on 04/11 : co testing was negative GC/CT was negative BV panel was negative for Trichomonas Mila and bacterial vaginosis cc:: CC: Sherrill Hernandez MD [facility] Past Medical History Medical History Hx of sigmoidoscopy Pyelonephritis Nephrolithiasis Ureterolithiasis Insomnia History of hypertension Tobacco dependence Urinary incontinence Lumbar spinal stenosis Cervical spondylosis Lumbar radiculopathy Fibromyalgia Degenerative joint disease of spine Family History Family History Father Esophageal cancer Mother Diabetes mellitus Maternal Grandfather Diabetes mellitus Surgical History Surgical History H/O colonoscopy History of facial surgery History of salpingectomy History of hip surgery History of right knee surgery Social History Social History Household Members: Family Household Members Other:: Patient lives by herself Housing: House Do you presently have visiting nurse or other home services: No Alcohol intake: current Alcohol intake frequency: 3 or more drinks per day Alcohol type: beer Patient Tobacco Use Status: Current everyday Tobacco user Tobacco use type: Cigarette Cigarette Packs Per Day: 1 Cigarettes Per Day: 20.0 Years Smoked: 30 Substance Use Type: Marijuana Advance Directives Date on File: 05/28/23 service: No Sexual orientation: Straight/Heterosexual Gender identity: Female Meds Allergies Allergy/AdvReac Type Severity Reaction Status Date / Time amoxicillin [From Augmentin] Allergy Intermediate Vomiting Verified 04/15/24 15:00 clavulanic acid Allergy Intermediate Vomiting Verified 04/15/24 15:00 [From Augmentin] nitrofurantoin AdvReac Severe Shortness Verified 04/15/24 15:16 of Breath Active Medications: Current Medications Acetaminophen (Acetaminophen 325 Mg Tablet) 975 mg PO Q6H PRN PRN Reason: Pain, Mild (Pain Scale 1-3), fever or headache Aspirin (Aspirin Enteric Coated 81 Mg Tablet.Dr) 81 mg PO DAILY [facility] Last Admin: 04/16/24 10:21 Dose: 81 mg Heparin Sodium (Porcine) (Heparin Sodium,Porcine 5,000 Unit/Ml Vial) 5,000 unit SUBCUT Q8H [facility] Last Admin: 04/16/24 10:23 Dose: 5,000 unit Potassium Chloride/Sodium Chloride (Kcl 40 Meq In 0.9 % Sodium Chl) 40 meq in 1,000 mls @ 75 mls/hr IVCONT .[id number] [facility] Last Admin: 04/16/24 12:01 Dose: 75 mls/hr Ceftriaxone Sodium 1 gm/ (Sodium Chloride) 50 mls @ 100 mls/hr IV Q24H [facility] Last Infusion: 04/16/24 00:22 Dose: Infused Metronidazole (Flagyl) 500 mg in 100 mls @ 100 mls/hr IV Q8H [facility] Last Infusion: 04/16/24 07:30 Dose: Infused Doxycycline Hyclate 100 mg/ (Sodium Chloride) 250 mls @ 166.67 mls/hr IV Q12H [facility] Last Infusion: 04/16/24 13:50 Dose: Infused Melatonin (Melatonin 3 Mg Tablet) 6 mg PO BEDTIME PRN PRN Reason: Insomnia Mirabegron (Mirabegron 50 Mg Tab.Er.24h) 50 mg PO DAILY [facility] Last Admin: 04/16/24 10:21 Dose: 50 mg Prochlorperazine Edisylate (Prochlorperazine Edisylate 10 Mg/2 Ml Vial) 5 mg IVPUSH Q6H PRN PRN Reason: Nausea and Vomiting Sodium Chloride (0.9 % Sodium Chloride Flush 3 Ml Syringe) 3 ml IVFLUSH QSHIFT [facility] Last Admin: 04/16/24 08:02 Dose: Not Given Vitamin D (Cholecalciferol (Vitamin D3) 25 Mcg Tablet) 25 mcg PO DAILY [facility] Last Admin: 04/16/24 10:22 Dose: 25 mcg Home Medications ?Medication ?Instructions ?Recorded ?Confirmed ?Last Taken ?Type calcium carbonate (Oyster Shell 500 mg PO BID 02/22/23 04/15/24 04/15/24 History Calcium) cholecalciferol (vitamin D3) 25 25 mcg PO DAILY 02/22/23 04/15/24 04/15/24 History mcg (1,000 unit) tablet [facility]IL [facility]ER Physical Exam Vitals Vital signs: Temp Pulse Resp BP Pulse Ox O2 Del Method O2 Flow Rate 97.1 F 71 18 138/83 97 Nasal Cannula 2 04/16/24 11:40 04/16/24 11:40 04/16/24 11:40 04/16/24 11:40 04/16/24 11:40 04/16/24 11:40 04/16/24 11:40 BMI result Body Mass Index 20.0 Abdomen Auscultation/Inspection/Palpation: Soft, Non-distended and Tenderness (Left lower quadrant) Female Genitalia (Pelvic) Vulva: No lesions Vagina: Nontender Cervix: Grossly normal Uterus: Normal size Adnexa/Parametria: Adnexal Tenderness: None, Adnexal Mass: None, Parametrial Tenderness: None and Parametrial Mass: None RAIL GRINDER - Results Labs 04/16/24 04:33 04/16/24 04:33 Labs: Short CBC 04/15/24 04/16/24 Range/Units 15:10 04:33 WBC 12.7 H 7.5 (4.8-10.8) X10*3/uL Hgb 16.7 H 14.4 (12.0-16.0) g/dl Hct 45.1 40.8 (37.0-47.0) % Plt Count 196 D 194 (160-400) X10*3/uL BMP 04/15/24 04/15/24 04/16/24 15:10 22:41 04:33 Sodium 130 L 133 L 135 Potassium 2.9 L* 3.4 3.7 Chloride 95 L 97 106 Carbon Dioxide 23 24 20 L BUN 8 L 7 L 6 L Creatinine 0.60 0.59 0.53 Calcium 10.2 8.8 D 8.7 Liver Function 04/15/24 Range/Units 15:10 Total Bilirubin 1.2 H (0.0-1.0) mg/dL AST 19 (5-31) U/L ALT 16 (0-31) U/L Alkaline Phosphatase 77 (39-117) U/L Albumin 4.1 (3.5-5.0) g/dL Imaging US - abdomen: Radiologist's impression: ITS Impressions Chest X-Ray 04/15/24 15:31 IMPRESSION: Mild reticular nodular densities right lung base. No prior studies are available for comparison to assess if this is a chronic finding. Abdomen/Pelvis CT 04/15/24 18:59 IMPRESSION: 1. Marked thickening of the sigmoid with extensive diverticular changes. No extraluminal air or drainable fluid collections are seen. Findings could represent mild diverticulitis. Similar appearances have been seen in the past. 2. There is a structure in the left adnexa which appears somewhat tubular. This may be a dilated tube with enhancing wall, possibly hydro-/pyosalpinx. Transabdominal and more importantly endovaginal pelvic ultrasound is recommended for further evaluation. 3. Other incidental findings as described above. Fleischner guidelines were followed. Chest CTA 04/15/24 18:59 IMPRESSION: 1. No evidence of pulmonary emboli. 2. Interstitial prominence with Niyah B-lines and dependent infiltrates and groundglass changes at the lung bases, right greater than left. Findings are suggestive of interstitial and alveolar pulmonary edema. Infectious etiologies would be another possibility although considered to be much less likely VTE: negative. Pelvic/Transvag US 04/15/24 21:33 IMPRESSION: 1. Normal ultrasound of uterus. 2. Normal right and left ovary. 3. Thick-walled hypervascular structure in the left adnexa measuring 2.6 x 2.8 x 1.5 cm. This correlates to the rim-enhancing structure in the left adnexa on CT abdomen pelvis April 15, 2024. Given the acute process of the adjacent sigmoid colon, this is likely a small abscess in the pelvis. A tubo-ovarian abscess is less likely. Assessment and Plan (1) Diverticulitis large intestine: Qualifiers: Diverticulitis bleeding: without bleeding Diverticulitis complication: without perforation or abscess Qualified Code(s): K57.32 - Diverticulitis of large intestine without perforation or abscess without bleeding Status: Acute Defer the management to the hospitalist and surgical team (2) Tubo-ovarian abscess: Status: Acute Although unlikely for the patient to have tubo-ovarian abscess with a recent negative STD screen , the patient is on the [facility] parental regimen for the treatment of tubo-ovarian abscess GC chlamydia, BV panel and Trichomonas taken. STD screen including HIV, hepatitis-B surface antigen, Hepatitis-C antibody and RPR done on 04/11 were all negative. Recommend continue IV antibiotics with Ceftriaxone 1 g Q 24, doxycycline 100 mg p.o. or IV q.12, metronidazole 500 mg IV or p.o. q.12 till clinical improvement for 48-72 hours, then discharge home on doxycycline 100 mg p.o. b.i.d. with Flagyl 500 mg p.o. b.i.d. for a total of 14 days, to be followed up as an outpatient within 2 weeks. In the event the patient does not progress or develop any of the following: Suspected sepsis , enlarging pelvic mass, new onset fever, persistent or worsening abdomino/pelvic tenderness after 48-72 hours of treatment with IV antibiotics, the patient might need minimally invasive abscess drainage through interventional radiology or surgical intervention. (3) Complex cyst of left ovary: Status: Acute Pelvic ultrasound reports a left colpo luteum cyst; is unlikely for a 58-year-old postmenopausal patient to have ovulation, therefore left ovarian cyst could not be a corpous luteum cyst; will consider the left ovarian cyst ultrasound finding as a complex ovarian cyst, and will follow it up with outpatient pelvic MRI for further evaluation with ovarian cancer tumor marker and will treat accordingly (4) Postmenopausal bleeding: Status: Acute Discussed with the patient the differential diagnosis of post menopausal bleeding with normal pelvic exam including but not limited to, endometrial hyperplasia, cancer, polyps and other causes; co testing done on 04/11 was negative, pelvic ultrasound to endometrial stripe was 2 mm; discussed with the patient that although the endometrial thickness is less than 4 mm, the negative predictive value of endometrial pathology is 99%, but since the patient had recurrent episodes of vaginal bleeding, recommended office endometrial sampling versus hysteroscopy D&C polypectomy , per patient request attempted endometrial biopsy but was aborted since it could not be tolerated by the patient. Instructions given the patient to schedule an outpatient follow-up after discharge for office EMB rule out endometrial pathology . All questions answered, the patient verbalized understanding and agreed with the plan.
[2024-04-16] MEDS: Morphine Sulfate 4 MG/ML CARTRIDGE 3 MG IVPUSH ×2 (15:45→21:31)
[2024-04-16 16:31] LABS: Bacterial Vaginosis PCR NEGATIVE (Negative); Candida Group PCR DETECTED (Not Detect); Candida glab krusei PCR NOT DETECTED (Not Detect); Trichomonas vaginalis PCR NOT DETECTED (Not Detect)
[2024-04-16 17:10] LABS: CT PCR NOT DETECTED (Not Detect.); NG PCR NOT DETECTED (Not Detect.)
[2024-04-16 17:17] LABS: Appearance Urine Turbid; Color Urine Dark Yellow; Glucose Urine UA Negative (Negative); Leukocyte Esterase Urine Large (3+) (Negative); Nitrite Urine Negative (Negative); PH 5.5 (5.0-9.0); Specific Gravity - Urine 1.025 (1.005-1.025); UMIC TRIGGER UACC YES; Urine Blood Large (3+) (Negative); Urine Ketones Negative (Negative); Urine Protein 30 (1+) mg/dL (Neg-Trace)
[2024-04-16 17:19] LABS: Bacteria Urine None Seen (None Seen); Hyaline Casts Urine 0-2 /LPF (0-2); RBC Urine >20 /HPF (0-2); Squamous Epithelial Cell Urine 0-2 /HPF (0-2); UACC Culture Trigger YES; WBC Urine >50 /HPF (0-5)
[2024-04-16] MEDS: oxyCODONE HCl Immed Release 5 MG TABLET PO (19:14)
[2024-04-16] MEDS: cefTRIAXone sodium 1 GM in 0.9 % Sodium Chloride 50 ML IV (22:49)
[2024-04-16] MEDS: 0.9 % Sodium Chloride Flush 3 ML SYRINGE IVFLUSH (23:28)
[2024-04-17] MEDS: KCl 40 mEq in 0.9 % Sodium Chl 40 MEQ/1,000 ML IV.SOLN 75 MEQ IVCONT (01:07)
[2024-04-17 03:48] VITALS: BP 122/77; PULSE 74; RESP 18; TEMP 36.3; O2SAT 97
[2024-04-17] MEDS: metroNIDAZOLE/NS 500 MG/100 ML PIGGYBACK 100 MG IV ×3 (05:50→21:54)
[2024-04-17] MEDS: Morphine Sulfate 4 MG/ML CARTRIDGE 3 MG IVPUSH ×3 (05:50→19:37)
[2024-04-17 08:00] VITALS: BP 133/91; PULSE 69; RESP 18; TEMP 36.6; O2SAT 97
[2024-04-17] MEDS: Heparin Sodium,Porcine 5,000 UNIT/ML VIAL 5000 UNIT SUBCUT ×2 (08:42→17:33)
[2024-04-17] MEDS: Mirabegron 50 MG TAB.ER.24H PO (08:42)
[2024-04-17] MEDS: Aspirin Enteric Coated 81 MG TABLET.DR PO (08:42)
[2024-04-17] MEDS: Cholecalciferol (Vitamin D3) 25 MCG TABLET PO (08:42)
[2024-04-17] MEDS: 0.9 % Sodium Chloride Flush 3 ML SYRINGE IVFLUSH ×3 (08:43→23:03)
[2024-04-17] MEDS: oxyCODONE HCl Immed Release 5 MG TABLET PO (08:49)
--- NOTE | 2024-04-17 10:32 | PM.PNGS ---
Subjective Subjective Date of Service: 04/17/24 Interval history: Patient with continued abdominal pain mainly in the left lower quadrant. Also reports pain with bowel movements. Physical Exam Vital Signs: Vital Signs: Last Vital Signs Temp 97.9 F 04/17/24 08:00 Pulse 69 04/17/24 08:00 Resp 18 04/17/24 08:00 BP 133/91 H 04/17/24 08:00 Pulse Ox 97 04/17/24 08:00 O2 Del Method Room Air 04/17/24 08:00 O2 Flow Rate 2 04/17/24 03:48 BMI result Body Mass Index 20.0 Const: General: cooperative and no acute distress Nutritional Appearance: well nourished Orientation/consciousness: patient oriented x3 Limitations: no limitations HEENT: Head: Yes normocephalic and Yes atraumatic Ears: hearing grossly normal bilaterally Resp: Effort & Inspection: normal respiratory effort, no audible wheezes, no cough and no respiratory distress Cardio: Jugular venous distension: no JVD GI: Inspection: Yes normal to inspection Palpation (GI): Soft to palpation, Tenderness to palpation present (GI) in the RLQ; with no rebound tenderness, no guarding and not rigid Percussion: Yes normal to percussion Auscultation: normal bowel sounds Rectal Exam - Female: deferred Skin: Other: Warm, dry, no rash Neuro: General: patient oriented x3 Extrem: General: Yes no clubbing, cyanosis or edema Objective Data Active Medications Acetaminophen (Acetaminophen 325 Mg Tablet) 975 mg PO Q6H PRN PRN Reason: Pain, Mild (Pain Scale 1-3), fever or headache Last Admin: 04/16/24 14:03 Dose: 975 mg Documented By: INES Aspirin (Aspirin Enteric Coated 81 Mg Tablet.) 81 mg PO DAILY [facility] Last Admin: 04/17/24 08:42 Dose: 81 mg Documented By: GONZALO Heparin Sodium (Porcine) (Heparin Sodium,Porcine 5,000 Unit/Ml Vial) 5,000 unit SUBCUT Q8H [facility] Last Admin: 04/17/24 08:42 Dose: 5,000 unit Documented By: GONZALO Potassium Chloride/Sodium Chloride (Kcl 40 Meq In 0.9 % Sodium Chl) 40 meq in 1,000 mls @ 75 mls/hr IVCONT .[id number] [facility] Last Admin: 04/17/24 01:07 Dose: 75 mls/hr Documented By: SUSHMA Ceftriaxone Sodium 1 gm/ (Sodium Chloride) 50 mls @ 100 mls/hr IV Q24H [facility] Last Infusion: 04/16/24 23:24 Dose: Infused Documented By: SUSHMA Metronidazole (Flagyl) 500 mg in 100 mls @ 100 mls/hr IV Q8H [facility] Last Infusion: 04/17/24 06:58 Dose: Infused Documented By: GONZALO Doxycycline Hyclate 100 mg/ (Sodium Chloride) 250 mls @ 166.67 mls/hr IV Q12H [facility] Last Infusion: 04/17/24 00:59 Dose: Infused Documented By: SUSHMA Melatonin (Melatonin 3 Mg Tablet) 6 mg PO BEDTIME PRN PRN Reason: Insomnia Mirabegron (Mirabegron 50 Mg Tab.Er.24h) 50 mg PO DAILY [facility] Last Admin: 04/17/24 08:42 Dose: 50 mg Documented By: GONZALO Morphine Sulfate (Morphine Sulfate 4 Mg/Ml Cartridge) 3 mg IVPUSH Q4H PRN; Protocol PRN Reason: Pain, Severe (Pain Scale 7-10) Last Admin: 04/17/24 05:50 Dose: 3 mg Documented By: SUSHMA Oxycodone HCl (Oxycodone Hcl Immed Release 5 Mg Tablet) 5 mg PO Q6H PRN PRN Reason: Pain, Moderate(Pain Scale 4-6) Last Admin: 04/17/24 08:49 Dose: 5 mg Documented By: GONZALO Prochlorperazine Edisylate (Prochlorperazine Edisylate 10 Mg/2 Ml Vial) 5 mg IVPUSH Q6H PRN PRN Reason: Nausea and Vomiting Sodium Chloride (0.9 % Sodium Chloride Flush 3 Ml Syringe) 3 ml IVFLUSH QSHIFT [facility] Last Admin: 04/17/24 08:43 Dose: 3 ml Documented By: GONZALO Vitamin D (Cholecalciferol (Vitamin D3) 25 Mcg Tablet) 25 mcg PO DAILY [facility] Last Admin: 04/17/24 08:42 Dose: 25 mcg Documented By: GONZALO Labs 04/16/24 04:33 04/16/24 04:33 Labs: Laboratory Results - last 24 hr 04/16/24 04/16/24 15:00 17:05 Urine Color Dark Yellow Urine Appearance Turbid Urine pH 5.5 Ur Specific Sandy 1.025 Urine Protein 30 (1+) H Urine Glucose (UA) Negative Urine Ketones Negative Urine Blood Large (3+) H Urine Nitrite Negative Ur Leukocyte Esterase Large (3+) H Urine RBC >20 H Urine WBC >50 H Ur Squamous Epith Cells 0-2 Urine Bacteria None Seen Hyaline Casts 0-2 Chlam trachomat DNA PCR NOT DETECTED N.gonorrhoeae DNA (PCR) NOT DETECTED T. vaginalis (PCR) NOT DETECTED Bact Vaginosis (PCR) NEGATIVE C. krusei/glabrata (PCR) NOT DETECTED Mila group (PCR) DETECTED A Procedures Date of Service Date of Service: 04/17/24 Progress Note: A&P Assessment and plan (1) Diverticulitis large intestine: Status: Acute Plan 58-year-old female patient with persistent abdominal pain in the left lower quadrant with CT findings suggestive of diverticulitis and a possible abscess collection verses tubal abscess. Patient currently on antibiotics for a potential tubal abscess. I discussed once again proceeding to a hand assisted laparoscopic sigmoid colectomy during this admission. I reviewed the procedure, risks, and alternatives, and she wishes to proceed with the surgery. I will tentatively schedule her for Sunday if she is medically cleared. She expressed understanding and agrees with the plan. Time Spent With Patient Time: Total time managing care of this patient today ____ minutes. Quality Stroke Does the patient have a stroke diagnosis?: No VTE Prior VTE?: No VTE Risk Level:: Medical - moderate - high VTE Device Contraindication: Treatment Not Indicated VTE Drug Contraindication: N/A - Med Ordered
[2024-04-17] MEDS: Doxycycline Hyclate 100 MG in 0.9 % Sodium Chloride 250 ML 166.67 MG IV ×2 (11:40→23:56)
--- NOTE | 2024-04-17 12:53 | P.PNIM_ITS ---
Subjective Subjective Date of Service: 04/17/24 Interval History: Being followed for diverticulitis/tachycardia/shortness of breath. Complaining of persistent left lower quadrant abdominal pain, had loose bowel movement after breakfast, as per patient this is a chronic issue to have bowel movement after every meal, no shortness of breath at rest, complaining of dry cough no phlegm, complaining of shortness of breath with activity, denies fever, no chills, no vaginal discharge. No nausea, no vomiting. Review of Systems All other system reviewed and are negative Physical Exam 2 Vital Signs: Vital Signs: Last Vital Signs Temp 97.9 F 04/17/24 08:00 Pulse 69 04/17/24 08:00 Resp 18 04/17/24 08:00 BP 133/91 H 04/17/24 08:00 Pulse Ox 97 04/17/24 08:00 O2 Del Method Room Air 04/17/24 08:00 O2 Flow Rate 2 04/17/24 03:48 BMI result Body Mass Index 20.0 Const: Other: General awake alert x3, in no acute distress. Anicteric sclera Neck no JVD. CVS regular rate rhythm, Respiratory lungs coarse breath sounds at bases, no respiratory distress, no wheeze, no rhonchi. Gastrointestinal abdomen soft, left lower quadrant tenderness with palpation, bowel sounds audible, no guarding , no rigidity. Extremities no edema. Neuro non focal Skin no rash Psych appropriate affect Objective Data Active Medications Acetaminophen (Acetaminophen 325 Mg Tablet) 975 mg PO Q6H PRN PRN Reason: Pain, Mild (Pain Scale 1-3), fever or headache Last Admin: 04/16/24 14:03 Dose: 975 mg Documented By: INES Aspirin (Aspirin Enteric Coated 81 Mg Tablet.) 81 mg PO DAILY [facility] Last Admin: 04/17/24 08:42 Dose: 81 mg Documented By: GONZALO Erythromycin (Erythromycin Base 250 Mg Tablet) 1,000 mg PO 1300,1400,2200 [facility] Stop: 04/20/24 22:01 Heparin Sodium (Porcine) (Heparin Sodium,Porcine 5,000 Unit/Ml Vial) 5,000 unit SUBCUT Q8H [facility] Last Admin: 04/17/24 08:42 Dose: 5,000 unit Documented By: GONZALO Potassium Chloride/Sodium Chloride (Kcl 40 Meq In 0.9 % Sodium Chl) 40 meq in 1,000 mls @ 75 mls/hr IVCONT .[id number] [facility] Last Admin: 04/17/24 01:07 Dose: 75 mls/hr Documented By: SUSHMA Ceftriaxone Sodium 1 gm/ (Sodium Chloride) 50 mls @ 100 mls/hr IV Q24H [facility] Last Infusion: 04/16/24 23:24 Dose: Infused Documented By: SUSHMA Metronidazole (Flagyl) 500 mg in 100 mls @ 100 mls/hr IV Q8H [facility] Last Infusion: 04/17/24 06:58 Dose: Infused Documented By: GONZALO Doxycycline Hyclate 100 mg/ (Sodium Chloride) 250 mls @ 166.67 mls/hr IV Q12H [facility] Last Admin: 04/17/24 11:40 Dose: 166.67 mls/hr Documented By: GONZALO Melatonin (Melatonin 3 Mg Tablet) 6 mg PO BEDTIME PRN PRN Reason: Insomnia Mirabegron (Mirabegron 50 Mg Tab.Er.24h) 50 mg PO DAILY [facility] Last Admin: 04/17/24 08:42 Dose: 50 mg Documented By: GONZALO Morphine Sulfate (Morphine Sulfate 4 Mg/Ml Cartridge) 3 mg IVPUSH Q4H PRN; Protocol PRN Reason: Pain, Severe (Pain Scale 7-10) Last Admin: 04/17/24 11:36 Dose: 3 mg Documented By: GONZALO Neomycin Sulfate (Neomycin Sulfate 500 Mg Tablet) 1,000 mg PO 13,14,22 [facility] Stop: 04/20/24 22:01 Oxycodone HCl (Oxycodone Hcl Immed Release 5 Mg Tablet) 5 mg PO Q6H PRN PRN Reason: Pain, Moderate(Pain Scale 4-6) Last Admin: 04/17/24 08:49 Dose: 5 mg Documented By: GONZALO Polyethylene Glycol/Electrolytes (Peg 3350/Na Sulf,Bicarb,Cl/Kcl 4,000 Ml Soln.Recon) 4,000 ml PO ONCE ONE Stop: 04/20/24 12:01 Prochlorperazine Edisylate (Prochlorperazine Edisylate 10 Mg/2 Ml Vial) 5 mg IVPUSH Q6H PRN PRN Reason: Nausea and Vomiting Sodium Chloride (0.9 % Sodium Chloride Flush 3 Ml Syringe) 3 ml IVFLUSH QSHIFT [facility] Last Admin: 04/17/24 08:43 Dose: 3 ml Documented By: GONZALO Vitamin D (Cholecalciferol (Vitamin D3) 25 Mcg Tablet) 25 mcg PO DAILY [facility] Last Admin: 04/17/24 08:42 Dose: 25 mcg Documented By: GONZALO Labs 04/16/24 04:33 04/16/24 04:33 Labs: Laboratory Results - last 24 hr 04/16/24 04/16/24 15:00 17:05 Urine Color Dark Yellow Urine Appearance Turbid Urine pH 5.5 Ur Specific [place] 1.025 Urine Protein 30 (1+) H Urine Glucose (UA) Negative Urine Ketones Negative Urine Blood Large (3+) H Urine Nitrite Negative Ur Leukocyte Esterase Large (3+) H Urine RBC >20 H Urine WBC >50 H Ur Squamous Epith Cells 0-2 Urine Bacteria None Seen Hyaline Casts 0-2 Chlam trachomat DNA PCR NOT DETECTED N.gonorrhoeae DNA (PCR) NOT DETECTED T. vaginalis (PCR) NOT DETECTED Bact Vaginosis (PCR) NEGATIVE C. krusei/glabrata (PCR) NOT DETECTED Mila group (PCR) DETECTED A Microbiology Microbiology Results: Microbiology 04/16/24 Unknown Urine Culture - Preliminary Urine clean catch - Clean Catch Midstream No growth to date. Assessment and Plan (1) Cardiomyopathy: Status: Acute (2) Sinus tachycardia: Status: Acute (3) Diverticulitis large intestine: Status: Acute Plan Cathie Arguello is a 58 years old woman admitted with: Acute Hypoxic respiratory failure, suspected underlying COPD/acute bronchitis CTA chest showed no PE, but showed dependent infiltrates/ground-glass changes right greater than left suggestive of interstitial/alveolar pulmonary edema and less likely infectious Clinically no evidence of systolic congestive heart failure, normal troponin and BNP Shortness of breath resolved, mostly shortness of breath with activity Wean oxygen as tolerated not on home O2, strongly recommend to abstain from smoking, as needed inhalers, incentive spirometry. Seen by cardiology they recommend to add valsartan 25 b.i.d. if blood pressure allows, blood pressure improved will DC IV fluids and follow blood pressure Will treat underlying infection. Sinus tachycardia with underlying left bundle branch block unknown duration Normal troponin x2, denies chest pain, LDL 122, hemoglobin A1c less than 6, echo showed EF 35-40%, moderate global hypokinesis and impaired relaxation filling pattern Cardiomyopathy with no acute evidence of CHF, question stress-induced Continue tele monitor, heart rate stable not on beta-blockers. Acute diverticulitis. Persistent left lower quadrant abdominal pain/diarrhea. Continue treatment with Flagyl and IV ceftriaxone started on 04/15. Left adnexa structure likely possible diverticulitis with abscess collection, tubo-ovarian abscess less likely. Continue antibiotic therapy with Flagyl, ceftriaxone and doxycycline. Seen by Dr. Garnett he recommend hand assisted laparoscopic sigmoid colectomy tentatively scheduled for Sunday Seen by Dr. Mandujano from OBGYN he agrees with current treatment with IV ceftriaxone, doxycycline and metronidazole till clinical improvement in 48-72 hours then he recommend doxycycline 100 mg b.i.d. and Flagyl 500 mg b.i.d. for total 14 days to cover for possible tubo-ovarian abscess although less likely with recent negative STD screen and outpatient follow-up with OBGYN in 2 weeks in regard to complex cyst of left ovary he recommend outpatient pelvic MRI for further evaluation. He recommend outpatient endometrial sampling versus hysteroscopy D&C polypectomy for postmenopausal bleeding Acute hypomagnesemia repleted and normalized. Acute hypokalemia repleted. Dysuria. resolved, UA showed no bacteria. Over reactive bladder. Continue Myrbetriq. Tobacco smoking. Tobacco cessation education. DVT prophylaxis: Heparin Code status: Full Patient will need continued inpatient hospitalization for hypoxic respiratory failure treatment with supplemental oxygen, bronchodilator therapy, and IV antibiotics, in regard to acute diverticulitis and abscess will possibly undergo Surgery. Quality Stroke Does the patient have a stroke diagnosis?: No VTE Prior VTE?: No VTE Risk Level:: Medical - moderate - high VTE Device Contraindication: Treatment Not Indicated VTE Drug Contraindication: N/A - Med Ordered
[2024-04-17 15:41] VITALS: BP 146/82; PULSE 83; RESP 16; TEMP 36.4; O2SAT 96
[2024-04-17 19:35] VITALS: BP 134/79; PULSE 80; RESP 18; TEMP 36.7; O2SAT 93
[2024-04-17] MEDS: Prochlorperazine Edisylate 10 MG/2 ML VIAL 5 MG IVPUSH (19:36)
[2024-04-17] MEDS: cefTRIAXone sodium 1 GM in 0.9 % Sodium Chloride 50 ML IV (23:03)
[2024-04-18] MEDS: Morphine Sulfate 4 MG/ML CARTRIDGE 3 MG IVPUSH ×4 (00:11→20:33)
[2024-04-18] MEDS: Heparin Sodium,Porcine 5,000 UNIT/ML VIAL 5000 UNIT SUBCUT ×3 (01:38→17:18)
[2024-04-18] MEDS: oxyCODONE HCl Immed Release 5 MG TABLET PO ×2 (02:42→18:10)
[2024-04-18 03:07] VITALS: BP 133/82; PULSE 60; RESP 18; TEMP 36.4; O2SAT 97
[2024-04-18] MEDS: metroNIDAZOLE/NS 500 MG/100 ML PIGGYBACK 100 MG IV ×3 (05:58→21:37)
[2024-04-18 07:56] VITALS: BP 148/87; PULSE 80; RESP 14; TEMP 37.1; O2SAT 96
[2024-04-18] MEDS: 0.9 % Sodium Chloride Flush 3 ML SYRINGE IVFLUSH ×2 (08:07→17:18)
[2024-04-18] MEDS: Cholecalciferol (Vitamin D3) 25 MCG TABLET PO (08:08)
[2024-04-18] MEDS: Aspirin Enteric Coated 81 MG TABLET.DR PO (08:08)
[2024-04-18] MEDS: Mirabegron 50 MG TAB.ER.24H PO (08:08)
[2024-04-18] MEDS: Doxycycline Hyclate 100 MG in 0.9 % Sodium Chloride 250 ML 166.67 MG IV ×2 (11:52→23:18)
--- NOTE | 2024-04-18 12:16 | P.PNIM_ITS ---
Subjective Subjective Date of Service: 04/18/24 Interval History: Feels better, slept well tolerated breakfast, no nausea no vomiting, had 4 bowel movement, seems to be her baseline after every meal has a bowel movement, denies fever, no chills right-sided abdominal pain has improved, no acute events overnight. No shortness a breath, minimal intermittent cough. Review of Systems All other system reviewed and are negative. Physical Exam 2 Vital Signs: Vital Signs: Last Vital Signs Temp 98.7 F 04/18/24 07:56 Pulse 80 04/18/24 07:56 Resp 14 04/18/24 07:56 BP 148/87 H 04/18/24 07:56 Pulse Ox 96 04/18/24 07:56 O2 Del Method Nasal Cannula 04/18/24 07:56 O2 Flow Rate 2 04/18/24 07:56 BMI result Body Mass Index 20.0 Const: Other: General awake alert x3, in no acute distress. Anicteric sclera Neck no JVD. CVS regular rate rhythm, Respiratory lungs coarse breath sounds at bases, no respiratory distress, no wheeze, no rhonchi. Gastrointestinal abdomen soft, left lower quadrant tenderness with palpation, bowel sounds audible, no guarding , no rigidity. Extremities no edema. Neuro non focal Skin no rash Psych appropriate affect Objective Data Active Medications Acetaminophen (Acetaminophen 325 Mg Tablet) 975 mg PO Q6H PRN PRN Reason: Pain, Mild (Pain Scale 1-3), fever or headache Last Admin: 04/16/24 14:03 Dose: 975 mg Documented By: INES Albuterol Sulfate (Albuterol Sulfate 90 Mcg 8 Gm Inhaler) 2 puff INHALE RQ4H PRN PRN Reason: sob Aspirin (Aspirin Enteric Coated 81 Mg Tablet.) 81 mg PO DAILY [facility] Last Admin: 04/18/24 08:08 Dose: 81 mg Documented By: NAEEM Erythromycin (Erythromycin Base 250 Mg Tablet) 1,000 mg PO 1300,1400,2200 [facility] Stop: 04/20/24 22:01 Heparin Sodium (Porcine) (Heparin Sodium,Porcine 5,000 Unit/Ml Vial) 5,000 unit SUBCUT Q8H [facility] Last Admin: 04/18/24 08:07 Dose: 5,000 unit Documented By: NAEEM Ceftriaxone Sodium 1 gm/ (Sodium Chloride) 50 mls @ 100 mls/hr IV Q24H [facility] Last Infusion: 04/17/24 23:56 Dose: Infused Documented By: JOZEF Metronidazole (Flagyl) 500 mg in 100 mls @ 100 mls/hr IV Q8H [facility] Last Infusion: 04/18/24 08:09 Dose: Infused Documented By: NAEEM Doxycycline Hyclate 100 mg/ (Sodium Chloride) 250 mls @ 166.67 mls/hr IV Q12H [facility] Last Admin: 04/18/24 11:52 Dose: 166.67 mls/hr Documented By: NAEEM Melatonin (Melatonin 3 Mg Tablet) 6 mg PO BEDTIME PRN PRN Reason: Insomnia Mirabegron (Mirabegron 50 Mg Tab.Er.24h) 50 mg PO DAILY [facility] Last Admin: 04/18/24 08:08 Dose: 50 mg Documented By: NAEEM Morphine Sulfate (Morphine Sulfate 4 Mg/Ml Cartridge) 3 mg IVPUSH Q4H PRN; Protocol PRN Reason: Pain, Severe (Pain Scale 7-10) Last Admin: 04/18/24 09:28 Dose: 3 mg Documented By: TIAN Neomycin Sulfate (Neomycin Sulfate 500 Mg Tablet) 1,000 mg PO 13,14,22 [facility] Stop: 04/20/24 22:01 Oxycodone HCl (Oxycodone Hcl Immed Release 5 Mg Tablet) 5 mg PO Q6H PRN PRN Reason: Pain, Moderate(Pain Scale 4-6) Last Admin: 04/18/24 02:42 Dose: 5 mg Documented By: JOZEF Polyethylene Glycol/Electrolytes (Peg 3350/Na Sulf,Bicarb,Cl/Kcl 4,000 Ml Soln.Recon) 4,000 ml PO ONCE ONE Stop: 04/20/24 12:01 Prochlorperazine Edisylate (Prochlorperazine Edisylate 10 Mg/2 Ml Vial) 5 mg IVPUSH Q6H PRN PRN Reason: Nausea and Vomiting Last Admin: 04/17/24 19:36 Dose: 5 mg Documented By: JOZEF Sodium Chloride (0.9 % Sodium Chloride Flush 3 Ml Syringe) 3 ml IVFLUSH QSHIFT [facility] Last Admin: 04/18/24 08:07 Dose: 3 ml Documented By: NAEEM Vitamin D (Cholecalciferol (Vitamin D3) 25 Mcg Tablet) 25 mcg PO DAILY [facility] Last Admin: 04/18/24 08:08 Dose: 25 mcg Documented By: NAEEM Labs 04/16/24 04:33 04/16/24 04:33 Microbiology Microbiology Results: Microbiology 04/16/24 Unknown Urine Culture - Preliminary Urine clean catch - Clean Catch Midstream No growth to date. Assessment and Plan (1) Cardiomyopathy: Status: Acute (2) Sinus tachycardia: Status: Acute (3) Diverticulitis large intestine: Status: Acute Plan Cathie Arguello is a 58 years old woman admitted with: Acute Hypoxic respiratory failure, suspected underlying COPD/acute bronchitis No recurrent episode, hypoxia improving, shortness of breath resolved CTA chest showed no PE, but showed dependent infiltrates/ground-glass changes right greater than left suggestive of interstitial/alveolar pulmonary edema and less likely infectious Clinically no evidence of systolic congestive heart failure, normal troponin and BNP Shortness of breath resolved, mostly shortness of breath with activity Wean oxygen as tolerated not on home O2, strongly recommend to abstain from smoking, as needed inhalers, incentive spirometry. Seen by cardiology they recommend to add valsartan 25 b.i.d. if blood pressure allows, started on low-dose beta-blockers, if BP remains stable will add low-dose valsartan Sinus tachycardia with underlying left bundle branch block unknown duration Normal troponin x2, denies chest pain, LDL 122, hemoglobin A1c less than 6, echo showed EF 35-40%, moderate global hypokinesis and impaired relaxation filling pattern Cardiomyopathy with no acute evidence of CHF, question stress-induced Continue tele monitor, will place on low-dose beta-blockers . Acute diverticulitis. Persistent left lower quadrant abdominal pain/diarrhea, no worsening symptoms, WBC normalized. Left adnexa structure likely possible diverticulitis with abscess collection, tubo-ovarian abscess less likely. Continue antibiotic therapy with Flagyl, ceftriaxone and doxycycline started 04/15. Will transition to by mouth antibiotic after surgery. Seen by Dr. Garnett he recommend hand assisted laparoscopic sigmoid colectomy tentatively scheduled for Sunday Seen by Dr. Mandujano from [facility] he agrees with current treatment with IV ceftriaxone, doxycycline and metronidazole till clinical improvement in 48-72 hours then he recommend doxycycline 100 mg b.i.d. and Flagyl 500 mg b.i.d. for total 14 days to cover for possible tubo-ovarian abscess although less likely with recent negative STD screen and outpatient follow-up with OBGYN in 2 weeks in regard to complex cyst of left ovary he recommend outpatient pelvic MRI for further evaluation. He recommend outpatient endometrial sampling versus hysteroscopy D&C polypectomy for postmenopausal bleeding Acute hypomagnesemia repleted and normalized. Acute hypokalemia repleted. Dysuria. resolved, UA showed no bacteria. Over reactive bladder. Continue Myrbetriq. Tobacco smoking. Tobacco cessation education. DVT prophylaxis: Heparin Code status: Full Patient will need continued inpatient hospitalization for hypoxic respiratory failure treatment with supplemental oxygen, bronchodilator therapy, and IV antibiotics, for acute diverticulitis and abscess will possibly undergo Surgery. Quality Stroke Does the patient have a stroke diagnosis?: No VTE Prior VTE?: No VTE Risk Level:: Medical - moderate - high VTE Device Contraindication: Treatment Not Indicated VTE Drug Contraindication: N/A - Med Ordered
--- NOTE | 2024-04-18 13:01 | MHC.CM.PN ---
PER MD ROUNDS, PT IS EXPECTED TO REMAIN THROUGH THE WEEKEND DCP REMAINS HOME WITH NO SERVICES VIA PRIVATE TRANSPORT
[2024-04-18] MEDS: Metoprolol Tartrate 12.5 MG HALFTAB PO ×2 (13:12→20:33)
--- NOTE | 2024-04-18 13:14 | P.PNGS_ITS ---
Subjective Subjective Date of Service: 04/18/24 Interval history: Patient with no new complaints. Continues with frequent BM after eating. Mild left lower quadrant abdominal pain Physical Exam 2 Vital Signs: Vital Signs: Last Vital Signs Temp 98.7 F 04/18/24 07:56 Pulse 80 04/18/24 07:56 Resp 14 04/18/24 07:56 BP 148/87 H 04/18/24 07:56 Pulse Ox 96 04/18/24 07:56 O2 Del Method Nasal Cannula 04/18/24 07:56 O2 Flow Rate 2 04/18/24 07:56 BMI result Body Mass Index 20.0 Const: General: no acute distress Nutritional Appearance: well nourished Orientation/consciousness: patient oriented x3 Resp: Effort & Inspection: normal respiratory effort GI: Inspection: Yes normal to inspection Palpation (GI): Soft to palpation, Tenderness to palpation present (GI) in the LLQ, no guarding, not rigid and No hepatosplenomegaly present Percussion: Yes normal to percussion A uscultation: normal bowel sounds Rectal Exam - Female: deferred Neuro: General: patient oriented x3 Objective Data Active Medications Acetaminophen (Acetaminophen 325 Mg Tablet) 975 mg PO Q6H PRN PRN Reason: Pain, Mild (Pain Scale 1-3), fever or headache Last Admin: 04/16/24 14:03 Dose: 975 mg Documented By: INES Albuterol Sulfate (Albuterol Sulfate 90 Mcg 8 Gm Inhaler) 2 puff INHALE RQ4H PRN PRN Reason: sob Benzonatate (Benzonatate 100 Mg Capsule) 100 mg PO TID PRN PRN Reason: Cough Erythromycin (Erythromycin Base 250 Mg Tablet) 1,000 mg PO 1300,1400,2200 [facility] Stop: 04/20/24 22:01 Heparin Sodium (Porcine) (Heparin Sodium,Porcine 5,000 Unit/Ml Vial) 5,000 unit SUBCUT Q8H [facility] Last Admin: 04/18/24 08:07 Dose: 5,000 unit Documented By: NAEEM Ceftriaxone Sodium 1 gm/ (Sodium Chloride) 50 mls @ 100 mls/hr IV Q24H [facility] Last Infusion: 04/17/24 23:56 Dose: Infused Documented By: JOZEF Metronidazole (Flagyl) 500 mg in 100 mls @ 100 mls/hr IV Q8H [facility] Last Infusion: 04/18/24 08:09 Dose: Infused Documented By: NAEEM Doxycycline Hyclate 100 mg/ (Sodium Chloride) 250 mls @ 166.67 mls/hr IV Q12H [facility] Last Admin: 04/18/24 11:52 Dose: 166.67 mls/hr Documented By: NAEEM Melatonin (Melatonin 3 Mg Tablet) 6 mg PO BEDTIME PRN PRN Reason: Insomnia Metoprolol Tartrate (Metoprolol Tartrate 12.5 Mg Halftab) 12.5 mg PO BID [facility]; Protocol Mirabegron (Mirabegron 50 Mg Tab.Er.24h) 50 mg PO DAILY [facility] Last Admin: 04/18/24 08:08 Dose: 50 mg Documented By: NAEEM Morphine Sulfate (Morphine Sulfate 4 Mg/Ml Cartridge) 3 mg IVPUSH Q4H PRN; Protocol PRN Reason: Pain, Severe (Pain Scale 7-10) Last Admin: 04/18/24 09:28 Dose: 3 mg Documented By: TIAN Neomycin Sulfate (Neomycin Sulfate 500 Mg Tablet) 1,000 mg PO 13,14,22 [facility] Stop: 04/20/24 22:01 Oxycodone HCl (Oxycodone Hcl Immed Release 5 Mg Tablet) 5 mg PO Q6H PRN PRN Reason: Pain, Moderate(Pain Scale 4-6) Last Admin: 04/18/24 02:42 Dose: 5 mg Documented By: JOZEF Polyethylene Glycol/Electrolytes (Peg 3350/Na Sulf,Bicarb,Cl/Kcl 4,000 Ml Soln.Recon) 4,000 ml PO ONCE ONE Stop: 04/20/24 12:01 Prochlorperazine Edisylate (Prochlorperazine Edisylate 10 Mg/2 Ml Vial) 5 mg IVPUSH Q6H PRN PRN Reason: Nausea and Vomiting Last Admin: 04/17/24 19:36 Dose: 5 mg Documented By: JOZEF Sodium Chloride (0.9 % Sodium Chloride Flush 3 Ml Syringe) 3 ml IVFLUSH QSHIFT [facility] Last Admin: 04/18/24 08:07 Dose: 3 ml Documented By: NAEEM Vitamin D (Cholecalciferol (Vitamin D3) 25 Mcg Tablet) 25 mcg PO DAILY [facility] Last Admin: 04/18/24 08:08 Dose: 25 mcg Documented By: NAEEM Labs 04/16/24 04:33 04/16/24 04:33 Microbiology Microbiology Results: Microbiology 04/16/24 Unknown Urine Culture - Final Urine clean catch - Clean Catch Midstream No growth. Procedures Date of Service Date of Service: 04/18/24 Progress Note: A&P Assessment and plan (1) Diverticulitis large intestine: Status: Acute (2) Intra-abdominal abscess: Status: Acute Plan 58-year-old female patient with recurrent episodes of sigmoid diverticulitis and continued abdominal pain found to have possible pelvic abscess in the left lower quadrant verses tubal abscess. Overall the patient does feel improved but still has some tenderness in the left lower quadrant. Once again discussed the risks, alternatives, and benefits of hand assisted laparoscopic sigmoid colectomy possible open and she consents to the surgery. She has been added onto the schedule for Sunday. She will undergo bowel prep on Sunday including GoLYTELY in the morning and antibiotics p.o. in the afternoon. She should remain on a clear liquid diet on Sunday. Patient expressed understanding and agrees with the plan. Time Spent With Patient Time: Total time managing care of this patient today ____ minutes. Quality Stroke Does the patient have a stroke diagnosis?: No VTE Prior VTE?: No VTE Risk Level:: Medical - moderate - high VTE Device Contraindication: Treatment Not Indicated VTE Drug Contraindication: N/A - Med Ordered
[2024-04-18 16:00] VITALS: BP 138/85; PULSE 68; RESP 14; TEMP 36.6; O2SAT 97
[2024-04-18 19:40] VITALS: BP 156/84; PULSE 68; RESP 19; TEMP 36.7; O2SAT 95
[2024-04-18] MEDS: cefTRIAXone sodium 1 GM in 0.9 % Sodium Chloride 50 ML IV (22:42)
[2024-04-19] MEDS: Morphine Sulfate 4 MG/ML CARTRIDGE 3 MG IVPUSH ×4 (00:57→20:10)
[2024-04-19] MEDS: Melatonin 3 MG TABLET 6 MG PO (00:58)
[2024-04-19] MEDS: Heparin Sodium,Porcine 5,000 UNIT/ML VIAL 5000 UNIT SUBCUT ×3 (01:03→16:37)
[2024-04-19] MEDS: 0.9 % Sodium Chloride Flush 3 ML SYRINGE IVFLUSH ×3 (01:04→14:55)
[2024-04-19 04:00] VITALS: BP 125/71; PULSE 60; RESP 14; TEMP 36.4; O2SAT 93
[2024-04-19] MEDS: metroNIDAZOLE/NS 500 MG/100 ML PIGGYBACK 100 MG IV ×3 (06:14→22:18)
[2024-04-19] MEDS: oxyCODONE HCl Immed Release 5 MG TABLET PO ×3 (06:26→22:30)
[2024-04-19 08:00] VITALS: BP 133/82; PULSE 66; RESP 16; TEMP 36; O2SAT 95
[2024-04-19] MEDS: Cholecalciferol (Vitamin D3) 25 MCG TABLET PO (09:18)
[2024-04-19] MEDS: Metoprolol Tartrate 12.5 MG HALFTAB PO ×2 (09:18→20:11)
[2024-04-19] MEDS: Mirabegron 50 MG TAB.ER.24H PO (09:36)
--- NOTE | 2024-04-19 09:54 | P.PNGS_ITS ---
Subjective Subjective Date of Service: 04/19/24 Interval history: No new complaints Continues to have what she describes as chronic left lower quadrant pain Tolerating diet Physical Exam 2 Vital Signs: Vital Signs: Last Vital Signs Temp 96.8 F 04/19/24 08:00 Pulse 66 04/19/24 08:00 Resp 16 04/19/24 08:00 BP 133/82 04/19/24 08:00 Pulse Ox 95 04/19/24 08:00 O2 Del Method Nasal Cannula 04/19/24 08:00 O2 Flow Rate 1 04/19/24 08:00 BMI result Body Mass Index 20.0 Const: General: comfortable and no acute distress Resp: Effort & Inspection: normal respiratory effort GI: Other: Some tenderness mostly Palpation (GI): Soft to palpation, not firm and no guarding Objective Data Active Medications Acetaminophen (Acetaminophen 325 Mg Tablet) 975 mg PO Q6H PRN PRN Reason: Pain, Mild (Pain Scale 1-3), fever or headache Last Admin: 04/16/24 14:03 Dose: 975 mg Documented By: INES Albuterol Sulfate (Albuterol Sulfate 90 Mcg 8 Gm Inhaler) 2 puff INHALE RQ4H PRN PRN Reason: sob Benzonatate (Benzonatate 100 Mg Capsule) 100 mg PO TID PRN PRN Reason: Cough Erythromycin (Erythromycin Base 250 Mg Tablet) 1,000 mg PO 1300,1400,2200 [facility] Stop: 04/20/24 22:01 Heparin Sodium (Porcine) (Heparin Sodium,Porcine 5,000 Unit/Ml Vial) 5,000 unit SUBCUT Q8H [facility] Last Admin: 04/19/24 09:18 Dose: 5,000 unit Documented By: SHADI Ceftriaxone Sodium 1 gm/ (Sodium Chloride) 50 mls @ 100 mls/hr IV Q24H [facility] Last Infusion: 04/18/24 23:26 Dose: Infused Documented By: SUSHMA Metronidazole (Flagyl) 500 mg in 100 mls @ 100 mls/hr IV Q8H [facility] Last Infusion: 04/19/24 07:31 Dose: Infused Documented By: SHADI Doxycycline Hyclate 100 mg/ (Sodium Chloride) 250 mls @ 166.67 mls/hr IV Q12H [facility] Last Infusion: 04/19/24 01:04 Dose: Infused Documented By: SUSHMA Melatonin (Melatonin 3 Mg Tablet) 6 mg PO BEDTIME PRN PRN Reason: Insomnia Last Admin: 04/19/24 00:58 Dose: 6 mg Documented By: SUSHMA Metoprolol Tartrate (Metoprolol Tartrate 12.5 Mg Halftab) 12.5 mg PO BID [facility]; Protocol Last Admin: 04/19/24 09:18 Dose: 12.5 mg Documented By: SHADI Mirabegron (Mirabegron 50 Mg Tab.Er.24h) 50 mg PO DAILY [facility] Last Admin: 04/19/24 09:36 Dose: 50 mg Documented By: SHADI Morphine Sulfate (Morphine Sulfate 4 Mg/Ml Cartridge) 3 mg IVPUSH Q4H PRN; Protocol PRN Reason: Pain, Severe (Pain Scale 7-10) Last Admin: 04/19/24 09:19 Dose: 3 mg Documented By: SHADI Neomycin Sulfate (Neomycin Sulfate 500 Mg Tablet) 1,000 mg PO 13,14,22 [facility] Stop: 04/20/24 22:01 Oxycodone HCl (Oxycodone Hcl Immed Release 5 Mg Tablet) 5 mg PO Q6H PRN PRN Reason: Pain, Moderate(Pain Scale 4-6) Last Admin: 04/19/24 06:26 Dose: 5 mg Documented By: SUSHMA Polyethylene Glycol/Electrolytes (Peg 3350/Na Sulf,Bicarb,Cl/Kcl 4,000 Ml Soln.Recon) 4,000 ml PO ONCE ONE Stop: 04/20/24 12:01 Prochlorperazine Edisylate (Prochlorperazine Edisylate 10 Mg/2 Ml Vial) 5 mg IVPUSH Q6H PRN PRN Reason: Nausea and Vomiting Last Admin: 04/17/24 19:36 Dose: 5 mg Documented By: JOZEF Sodium Chloride (0.9 % Sodium Chloride Flush 3 Ml Syringe) [facility] Last Admin: 04/19/24 09:17 Dose: 3 ml Documented By: SHADI Vitamin D (Cholecalciferol (Vitamin D3) 25 Mcg Tablet) 25 mcg PO DAILY [facility] Last Admin: 04/19/24 09:18 Dose: 25 mcg Documented By: SHADI Labs 04/16/24 04:33 04/16/24 04:33 Microbiology Microbiology Results: Microbiology 04/16/24 Unknown Urine Culture - Final Urine clean catch - Clean Catch Midstream No growth. Procedures Date of Service Date of Service: 04/19/24 Progress Note: A&P Assessment and plan (1) Diverticulitis large intestine: Status: Acute Assessment and Plan: With question of diverticulitis related abscesses in the pelvis next to the ovaries For sigmoid resection Sunday Bowel prep tomorrow Patient understands plan well Time Spent With Patient Time: Total time managing care of this patient today ____ minutes. Quality Stroke Does the patient have a stroke diagnosis?: No VTE Prior VTE?: No VTE Risk Level:: Medical - moderate - high VTE Device Contraindication: Treatment Not Indicated VTE Drug Contraindication: N/A - Med Ordered
--- NOTE | 2024-04-19 10:57 | P.PNIM_ITS ---
Subjective Subjective Date of Service: 04/19/24 Interval History: Being followed for acute diverticulitis No recurrent episode of sinus tachycardia, oxygenation stable on 1 L, scheduled for hand assisted laparoscopic sigmoid colectomy for Sunday. Complaining of persistent left lower quadrant pain, associated with bowel movement soon after every meal Denies shortness of breath at rest, mild dry cough, no fevers, no chills, no other acute events overnight. Review of Systems All other system reviewed and are negative. Physical Exam 2 Vital Signs: Vital Signs: Last Vital Signs Temp 96.8 F 04/19/24 08:00 Pulse 66 04/19/24 08:00 Resp 16 04/19/24 08:00 BP 133/82 04/19/24 08:00 Pulse Ox 95 04/19/24 08:00 O2 Del Method Nasal Cannula 04/19/24 08:00 O2 Flow Rate 1 04/19/24 08:00 BMI result Body Mass Index 20.0 Const: Other: General awake alert x3, in no acute distress. Anicteric sclera Neck no JVD. CVS regular rate rhythm, Respiratory lungs coarse breath sounds at bases, no respiratory distress, no wheeze, no rhonchi. Gastrointestinal abdomen soft, left lower quadrant tenderness with palpation, bowel sounds audible, no guarding , no rigidity. Extremities no edema. Neuro non focal Skin no rash Psych appropriate affect Objective Data Active Medications Acetaminophen (Acetaminophen 325 Mg Tablet) 975 mg PO Q6H PRN PRN Reason: Pain, Mild (Pain Scale 1-3), fever or headache Last Admin: 04/16/24 14:03 Dose: 975 mg Documented By: INES Albuterol Sulfate (Albuterol Sulfate 90 Mcg 8 Gm Inhaler) 2 puff INHALE RQ4H PRN PRN Reason: sob Benzonatate (Benzonatate 100 Mg Capsule) 100 mg PO TID PRN PRN Reason: Cough Erythromycin (Erythromycin Base 250 Mg Tablet) 1,000 mg PO 1300,1400,2200 [facility] Stop: 04/20/24 22:01 Heparin Sodium (Porcine) (Heparin Sodium,Porcine 5,000 Unit/Ml Vial) 5,000 unit SUBCUT Q8H [facility] Last Admin: 04/19/24 09:18 Dose: 5,000 unit Documented By: SHADI Ceftriaxone Sodium 1 gm/ (Sodium Chloride) 50 mls @ 100 mls/hr IV Q24H [facility] Last Infusion: 04/18/24 23:26 Dose: Infused Documented By: SUSHMA Metronidazole (Flagyl) 500 mg in 100 mls @ 100 mls/hr IV Q8H [facility] Last Infusion: 04/19/24 07:31 Dose: Infused Documented By: SHADI Doxycycline Hyclate 100 mg/ (Sodium Chloride) 250 mls @ 166.67 mls/hr IV Q12H [facility] Last Infusion: 04/19/24 01:04 Dose: Infused Documented By: SUSHMA Melatonin (Melatonin 3 Mg Tablet) 6 mg PO BEDTIME PRN PRN Reason: Insomnia Last Admin: 04/19/24 00:58 Dose: 6 mg Documented By: SUSHMA Metoprolol Tartrate (Metoprolol Tartrate 12.5 Mg Halftab) 12.5 mg PO BID [facility]; Protocol Last Admin: 04/19/24 09:18 Dose: 12.5 mg Documented By: SHADI Mirabegron (Mirabegron 50 Mg Tab.Er.24h) 50 mg PO DAILY [facility] Last Admin: 04/19/24 09:36 Dose: 50 mg Documented By: SHADI Morphine Sulfate (Morphine Sulfate 4 Mg/Ml Cartridge) 3 mg IVPUSH Q4H PRN; Protocol PRN Reason: Pain, Severe (Pain Scale 7-10) Last Admin: 04/19/24 09:19 Dose: 3 mg Documented By: SHADI Neomycin Sulfate (Neomycin Sulfate 500 Mg Tablet) 1,000 mg PO 13,14,22 [facility] Stop: 04/20/24 22:01 Oxycodone HCl (Oxycodone Hcl Immed Release 5 Mg Tablet) 5 mg PO Q6H PRN PRN Reason: Pain, Moderate(Pain Scale 4-6) Last Admin: 04/19/24 06:26 Dose: 5 mg Documented By: SUSHMA Polyethylene Glycol/Electrolytes (Peg 3350/Na Sulf,Bicarb,Cl/Kcl 4,000 Ml Soln.Recon) 4,000 ml PO ONCE ONE Stop: 04/20/24 12:01 Prochlorperazine Edisylate (Prochlorperazine Edisylate 10 Mg/2 Ml Vial) 5 mg IVPUSH Q6H PRN PRN Reason: Nausea and Vomiting Last Admin: 04/17/24 19:36 Dose: 5 mg Documented By: JOZEF Sodium Chloride (0.9 % Sodium Chloride Flush 3 Ml Syringe) 3 ml IVFLUSH QSHIFT [facility] Last Admin: 04/19/24 09:17 Dose: 3 ml Documented By: SHADI Vitamin D (Cholecalciferol (Vitamin D3) 25 Mcg Tablet) 25 mcg PO DAILY [facility] Last Admin: 04/19/24 09:18 Dose: 25 mcg Documented By: SHADI Labs 04/16/24 04:33 04/16/24 04:33 Microbiology Microbiology Results: Microbiology 04/16/24 Unknown Urine Culture - Final Urine clean catch - Clean Catch Midstream No growth. Assessment and Plan (1) Cardiomyopathy: Status: Acute (2) Sinus tachycardia: Status: Acute (3) Diverticulitis large intestine: Status: Acute Plan Cathie Arguello is a 58 years old woman admitted with: Acute Hypoxic respiratory failure, suspected underlying COPD/acute bronchitis/no CHF No recurrent episode, hypoxia improving, shortness of breath resolved at rest ,c/o mild shortness of breath with activity, CTA chest showed no PE, but showed dependent infiltrates/ground-glass changes right greater than left suggestive of interstitial/alveolar pulmonary edema and less likely infectious Echo showed EF 35-40%, moderate global hypokinesis and impaired relaxation filling pattern, question stress-induced cardiomyopathy Clinically no evidence of systolic congestive heart failure, normal troponin and BNP Wean oxygen as tolerated not on home O2, strongly recommend to abstain from smoking, as needed inhalers, incentive spirometry. Seen by cardiology they recommend to add valsartan 25 b.i.d. if blood pressure allows, Sinus tachycardia with underlying left bundle branch block unknown duration Normal troponin x2, likely due to infection, underlying cardiomyopathy Continue tele monitor, continue metoprolol 12.5 b.i.d. Acute diverticulitis. Persistent left lower quadrant abdominal pain/diarrhea, no worsening symptoms, WBC normalized. Left adnexa structure likely possible diverticulitis with abscess collection, tubo-ovarian abscess less likely. Continue antibiotic therapy with Flagyl, ceftriaxone and doxycycline started 04/15. Will transition to by mouth antibiotic after surgery. Seen by Dr. Garnett he recommend hand assisted laparoscopic sigmoid colectomy tentatively scheduled for Sunday Seen by Dr. Mandujano from OBGYN he agrees with current treatment with IV ceftriaxone, doxycycline and metronidazole till clinical improvement in 48-72 hours then he recommend doxycycline 100 mg b.i.d. and Flagyl 500 mg b.i.d. for total 14 days to cover for possible tubo-ovarian abscess although less likely with recent negative STD screen and outpatient follow-up with OBGYN in 2 weeks in regard to complex cyst of left ovary he recommend outpatient pelvic MRI for further evaluation. He recommend outpatient endometrial sampling versus hysteroscopy D&C polypectomy for postmenopausal bleeding Acute hypomagnesemia repleted and normalized. Acute hypokalemia repleted. Dysuria. resolved, UA showed no bacteria. Over reactive bladder. Continue Myrbetriq. Tobacco smoking. Tobacco cessation education. DVT prophylaxis: Heparin Code status: Full Patient will need continued inpatient hospitalization for hypoxic respiratory failure treatment with supplemental oxygen, bronchodilator therapy, and IV antibiotics, for acute diverticulitis and abscess will possibly undergo Surgery on 04/21.. Quality Stroke Does the patient have a stroke diagnosis?: No VTE Prior VTE?: No VTE Risk Level:: Medical - moderate - high VTE Device Contraindication: Treatment Not Indicated VTE Drug Contraindication: N/A - Med Ordered
[2024-04-19] MEDS: Doxycycline Hyclate 100 MG in 0.9 % Sodium Chloride 250 ML 166.67 MG IV (12:47)
[2024-04-19 15:47] VITALS: BP 134/84; PULSE 64; RESP 12; TEMP 37.1; O2SAT 96
[2024-04-19 19:55] VITALS: BP 146/93; PULSE 65; RESP 16; TEMP 36.8; O2SAT 95
[2024-04-19] MEDS: cefTRIAXone sodium 1 GM in 0.9 % Sodium Chloride 50 ML IV (23:25)
[2024-04-20] VITALS (7 sets, daily range): BP systolic 144–166; BP diastolic 76–88; PULSE 64–94; RESP 14–18; TEMP 36.4–36.6; O2SAT 94–96
[2024-04-20] MEDS: Doxycycline Hyclate 100 MG in 0.9 % Sodium Chloride 250 ML 166.67 MG IV ×3 (00:02→23:21)
[2024-04-20] MEDS: Morphine Sulfate 4 MG/ML CARTRIDGE 3 MG IVPUSH ×5 (00:03→21:29)
[2024-04-20] MEDS: 0.9 % Sodium Chloride Flush 3 ML SYRINGE IVFLUSH ×4 (00:04→21:35)
[2024-04-20] MEDS: Melatonin 3 MG TABLET 6 MG PO (01:33)
[2024-04-20] MEDS: Heparin Sodium,Porcine 5,000 UNIT/ML VIAL 5000 UNIT SUBCUT (01:34)
[2024-04-20] MEDS: metroNIDAZOLE/NS 500 MG/100 ML PIGGYBACK 100 MG IV ×3 (06:07→21:32)
[2024-04-20 07:07] LABS: Hematocrit 39.1 % (37.0-47.0); Hemoglobin 13.6 g/dl (12.0-16.0); Mean Corpuscular HGB Conc 34.8 g/dl (31.0-35.0); Mean Corpuscular Hemoglobin 34.8 pg (27.0-33.0); Mean Platelet Volume 9.5 fL (9.4-12.3); Platelet Count 384 X10*3/uL (160-400); Red Blood Count 3.91 X10*6/uL (4.20-5.50); Red Cell Distribution Width 12.6 % (11.0-16.0); White Blood Count 12.4 X10*3/uL (4.8-10.8)
[2024-04-20 07:15] LABS: Anion Gap 12 (12-20); Blood Urea Nitrogen 4 mg/dL (9-16); Calcium 9.6 mg/dL (8.4-10.2); Carbon Dioxide 25 mmol/L (22-29); Chloride 103 mmol/L (96-108); Creatinine Clr Calc Pharmacy 96.6; Estimated Glomerular Filt Rate > 60; Glucose Random 60 mg/dL (60-115); Potassium 3.4 mmol/L (3.3-5.1); Sodium 137 mmol/L (135-145)
[2024-04-20] MEDS: Valsartan 40 MG TABLET 20 MG PO ×2 (08:44→21:30)
[2024-04-20] MEDS: Metoprolol Tartrate 12.5 MG HALFTAB PO ×2 (08:44→21:30)
[2024-04-20] MEDS: Cholecalciferol (Vitamin D3) 25 MCG TABLET PO (08:45)
[2024-04-20] MEDS: Mirabegron 50 MG TAB.ER.24H PO (08:45)
[2024-04-20] MEDS: oxyCODONE HCl Immed Release 5 MG TABLET PO ×2 (08:49→22:37)
--- NOTE | 2024-04-20 09:51 | PM.PNGS ---
Subjective Subjective Date of Service: 04/20/24 Interval history: No new complaints Has chronic pain in the left side Says she is looking forward to finally having surgery for diverticular disease Physical Exam Vital Signs: Vital Signs: Last Vital Signs Temp 97.6 F 04/20/24 07:38 Pulse 73 04/20/24 07:38 Resp 16 04/20/24 07:38 BP 166/88 H 04/20/24 08:44 Pulse Ox 94 04/20/24 07:38 O2 Del Method Room Air 04/20/24 07:38 O2 Flow Rate 1 04/19/24 15:47 BMI result Body Mass Index 20.0 Const: General: comfortable and no acute distress Resp: Effort & Inspection: normal respiratory effort Cardio: Rate: regular rate GI: Palpation (GI): Soft to palpation, not firm and no guarding Objective Data Active Medications Acetaminophen (Acetaminophen 325 Mg Tablet) 975 mg PO Q6H PRN PRN Reason: Pain, Mild (Pain Scale 1-3), fever or headache Last Admin: 04/16/24 14:03 Dose: 975 mg Documented By: INES Albuterol Sulfate (Albuterol Sulfate 90 Mcg 8 Gm Inhaler) 2 puff INHALE RQ4H PRN PRN Reason: sob Benzonatate (Benzonatate 100 Mg Capsule) 100 mg PO TID PRN PRN Reason: Cough Erythromycin (Erythromycin Base 250 Mg Tablet) 1,000 mg PO 1300,1400,2200 [facility] Stop: 04/20/24 22:01 Heparin Sodium (Porcine) (Heparin Sodium,Porcine 5,000 Unit/Ml Vial) 5,000 unit SUBCUT Q8H [facility] Last Admin: 04/20/24 01:34 Dose: 5,000 unit Documented By: SUSHMA Ceftriaxone Sodium 1 gm/ (Sodium Chloride) 50 mls @ 100 mls/hr IV Q24H [facility] Last Infusion: 04/20/24 00:04 Dose: Infused Documented By: SUSHMA Metronidazole (Flagyl) 500 mg in 100 mls @ 100 mls/hr IV Q8H [facility] Last Infusion: 04/20/24 07:11 Dose: Infused Documented By: STEVE Doxycycline Hyclate 100 mg/ (Sodium Chloride) 250 mls @ 166.67 mls/hr IV Q12H [facility] Last Infusion: 04/20/24 01:38 Dose: Infused Documented By: SUSHMA Melatonin (Melatonin 3 Mg Tablet) 6 mg PO BEDTIME PRN PRN Reason: Insomnia Last Admin: 04/20/24 01:33 Dose: 6 mg Documented By: SUSHMA Metoprolol Tartrate (Metoprolol Tartrate 12.5 Mg Halftab) 12.5 mg PO BID [facility]; Protocol Last Admin: 04/20/24 08:44 Dose: 12.5 mg Documented By: STEVE Mirabegron (Mirabegron 50 Mg Tab.Er.24h) 50 mg PO DAILY [facility] Last Admin: 04/20/24 08:45 Dose: 50 mg Documented By: STEVE Morphine Sulfate (Morphine Sulfate 4 Mg/Ml Cartridge) 3 mg IVPUSH Q4H PRN; Protocol PRN Reason: Pain, Severe (Pain Scale 7-10) Last Admin: 04/20/24 06:06 Dose: 3 mg Documented By: SUSHMA Neomycin Sulfate (Neomycin Sulfate 500 Mg Tablet) 1,000 mg PO 13,14, [facility] Stop: 04/20/24 22:01 Oxycodone HCl (Oxycodone Hcl Immed Release 5 Mg Tablet) 5 mg PO Q6H PRN PRN Reason: Pain, Moderate(Pain Scale 4-6) Last Admin: 04/20/24 08:49 Dose: 5 mg Documented By: STEVE Polyethylene Glycol/Electrolytes (Peg 3350/Na Sulf,Bicarb,Cl/Kcl 4,000 Ml Soln.Recon) 4,000 ml PO ONCE ONE Stop: 04/20/24 12:01 Prochlorperazine Edisylate (Prochlorperazine Edisylate 10 Mg/2 Ml Vial) 5 mg IVPUSH Q6H PRN PRN Reason: Nausea and Vomiting Last Admin: 04/17/24 19:36 Dose: 5 mg Documented By: JOZEF Sodium Chloride (0.9 % Sodium Chloride Flush 3 Ml Syringe) 3 ml IVFLUSH QSHIFT [facility] Last Admin: 04/20/24 08:44 Dose: 3 ml Documented By: STEVE Valsartan (Valsartan 40 Mg Tablet) 20 mg PO BID [facility]; Protocol Last Admin: 04/20/24 08:44 Dose: 20 mg Documented By: STEVE Vitamin D (Cholecalciferol (Vitamin D3) 25 Mcg Tablet) 25 mcg PO DAILY [facility] Last Admin: 04/20/24 08:45 Dose: 25 mcg Documented By: STEVE Labs 04/20/24 05:59 04/20/24 05:59 Labs: Laboratory Results - last 24 hr 04/20/24 05:59 MCV 100.0 H MCH 34.8 H MCHC 34.8 RDW 12.6 Plt Count 384 D MPV 9.5 Absolute Nucleated RBC 0.000 Nucleated RBC % (auto) 0.0 Anion Gap 12 Estim Creat Clear Calc 96.6 Estimated GFR > 60 Random Glucose 60 Calcium 9.6 D Procedures Date of Service Date of Service: 04/20/24 Progress Note: A&P Assessment and plan (1) Diverticulitis large intestine: Status: Acute Assessment and Plan: For sigmoid resection tomorrow Bowel prep today Patient currently on clear liquids She understands plan of care well Time Spent With Patient Time: Total time managing care of this patient today ____ minutes. Quality Stroke Does the patient have a stroke diagnosis?: No VTE Prior VTE?: No VTE Risk Level:: Medical - moderate - high VTE Device Contraindication: Treatment Not Indicated VTE Drug Contraindication: N/A - Med Ordered
--- NOTE | 2024-04-20 09:55 | P.PNIM_ITS ---
Subjective Subjective Date of Service: 04/20/24 Interval History: Being followed for acute diverticulitis possible abscess Complaining of persistent left lower quadrant abdominal pain and diarrhea after every meal, on clear liquid diet today and NPO after midnight for sigmoid colectomy at a.m. No acute events overnight. Review of Systems All other system reviewed and negative. Physical Exam 2 Vital Signs: Vital Signs: Last Vital Signs Temp 97.6 F 04/20/24 07:38 Pulse 73 04/20/24 07:38 Resp 16 04/20/24 07:38 BP 166/88 H 04/20/24 08:44 Pulse Ox 94 04/20/24 07:38 O2 Del Method Room Air 04/20/24 07:38 O2 Flow Rate 1 04/19/24 15:47 BMI result Body Mass Index 20.0 Const: Other: General awake alert x3, in no acute distress. Anicteric sclera Neck no JVD. CVS regular rate rhythm, Respiratory lungs coarse breath sounds at bases, no respiratory distress, no wheeze, no rhonchi. Gastrointestinal abdomen soft, left lower quadrant tenderness with palpation, bowel sounds audible, no guarding , no rigidity. Extremities no edema. Neuro non focal Skin no rash Psych appropriate affect Objective Data Active Medications Acetaminophen (Acetaminophen 325 Mg Tablet) 975 mg PO Q6H PRN PRN Reason: Pain, Mild (Pain Scale 1-3), fever or headache Last Admin: 04/16/24 14:03 Dose: 975 mg Documented By: INES Albuterol Sulfate (Albuterol Sulfate 90 Mcg 8 Gm Inhaler) 2 puff INHALE RQ4H PRN PRN Reason: sob Benzonatate (Benzonatate 100 Mg Capsule) 100 mg PO TID PRN PRN Reason: Cough Erythromycin (Erythromycin Base 250 Mg Tablet) 1,000 mg PO 1300,1400,2200 [facility] Stop: 04/20/24 22:01 Heparin Sodium (Porcine) (Heparin Sodium,Porcine 5,000 Unit/Ml Vial) 5,000 unit SUBCUT Q8H [facility] Last Admin: 04/20/24 01:34 Dose: 5,000 unit Documented By: SUSHMA Ceftriaxone Sodium 1 gm/ (Sodium Chloride) 50 mls @ 100 mls/hr IV Q24H [facility] Last Infusion: 04/20/24 00:04 Dose: Infused Documented By: SUSHMA Metronidazole (Flagyl) 500 mg in 100 mls @ 100 mls/hr IV Q8H [facility] Last Infusion: 04/20/24 07:11 Dose: Infused Documented By: STEVE Doxycycline Hyclate 100 mg/ (Sodium Chloride) 250 mls @ 166.67 mls/hr IV Q12H [facility] Last Infusion: 04/20/24 01:38 Dose: Infused Documented By: SUSHMA Melatonin (Melatonin 3 Mg Tablet) 6 mg PO BEDTIME PRN PRN Reason: Insomnia Last Admin: 04/20/24 01:33 Dose: 6 mg Documented By: SUSHMA Metoprolol Tartrate (Metoprolol Tartrate 12.5 Mg Halftab) 12.5 mg PO BID [facility]; Protocol Last Admin: 04/20/24 08:44 Dose: 12.5 mg Documented By: STEVE Mirabegron (Mirabegron 50 Mg Tab.Er.24h) 50 mg PO DAILY [facility] Last Admin: 04/20/24 08:45 Dose: 50 mg Documented By: STEVE Morphine Sulfate (Morphine Sulfate 4 Mg/Ml Cartridge) 3 mg IVPUSH Q4H PRN; Protocol PRN Reason: Pain, Severe (Pain Scale 7-10) Last Admin: 04/20/24 06:06 Dose: 3 mg Documented By: SUSHMA Neomycin Sulfate (Neomycin Sulfate 500 Mg Tablet) 1,000 mg PO 13,14, [facility] Stop: 04/20/24 22:01 Oxycodone HCl (Oxycodone Hcl Immed Release 5 Mg Tablet) 5 mg PO Q6H PRN PRN Reason: Pain, Moderate(Pain Scale 4-6) Last Admin: 04/20/24 08:49 Dose: 5 mg Documented By: STEVE Polyethylene Glycol/Electrolytes (Peg 3350/Na Sulf,Bicarb,Cl/Kcl 4,000 Ml Soln.Recon) 4,000 ml PO ONCE ONE Stop: 04/20/24 12:01 Prochlorperazine Edisylate (Prochlorperazine Edisylate 10 Mg/2 Ml Vial) 5 mg IVPUSH Q6H PRN PRN Reason: Nausea and Vomiting Last Admin: 04/17/24 19:36 Dose: 5 mg Documented By: JOZEF Sodium Chloride (0.9 % Sodium Chloride Flush 3 Ml Syringe) 3 ml IVFLUSH QSHIFT [facility] Last Admin: 04/20/24 08:44 Dose: 3 ml Documented By: STEVE Valsartan (Valsartan 40 Mg Tablet) 20 mg PO BID [facility]; Protocol Last Admin: 04/20/24 08:44 Dose: 20 mg Documented By: STEVE Vitamin D (Cholecalciferol (Vitamin D3) 25 Mcg Tablet) 25 mcg PO DAILY [facility] Last Admin: 04/20/24 08:45 Dose: 25 mcg Documented By: STEVE Labs 04/20/24 05:59 04/20/24 05:59 Labs: Laboratory Results - last 24 hr 04/20/24 05:59 MCV 100.0 H MCH 34.8 H MCHC 34.8 RDW 12.6 Plt Count 384 D MPV 9.5 Absolute Nucleated RBC 0.000 Nucleated RBC % (auto) 0.0 Anion Gap 12 Estim Creat Clear Calc 96.6 Estimated GFR > 60 Random Glucose 60 Calcium 9.6 D Assessment and Plan (1) Diverticulitis large intestine: Status: Acute (2) Intra-abdominal abscess: Status: Acute (3) Complex cyst of left ovary: Status: Acute (4) Cardiomyopathy: Status: Acute (5) Sinus tachycardia: Status: Acute Plan Cathie Arguello is a 58 years old woman admitted with: Acute Hypoxic respiratory failure, suspected underlying COPD/acute bronchitis/no CHF No recurrent episode, hypoxia and shortness of breath resolved CTA chest showed no PE, but showed dependent infiltrates/ground-glass changes right greater than left suggestive of interstitial/alveolar pulmonary edema and less likely infectious Echo showed EF 35-40%, moderate global hypokinesis and impaired relaxation filling pattern, question stress-induced cardiomyopathy Clinically no evidence of systolic congestive heart failure, normal troponin and BNP Continue as needed albuterol/IS/ Seen by cardiology they recommend valsartan 20 b.i.d. Sinus tachycardia with underlying left bundle branch block unknown duration Normal troponin x2, likely due to infection, underlying cardiomyopathy metoprolol 12.5 b.i.d. Acute diverticulitis. Persistent left lower quadrant abdominal pain/diarrhea, no worsening symptoms, WBC elevated,no fevers. Left adnexa structure likely possible diverticulitis with abscess collection, tubo-ovarian abscess less likely. Continue antibiotic therapy with Flagyl, ceftriaxone and doxycycline started 04/15. Seen by Dr. Garnett he recommend hand assisted laparoscopic sigmoid colectomy tentatively scheduled for Thursday 06/[address] Mandujano from OBGYN he agrees with current treatment with IV ceftriaxone, doxycycline and metronidazole till clinical improvement in 48-72 hours then he recommend doxycycline 100 mg b.i.d. and Flagyl 500 mg b.i.d. for total 14 days end date 04/29 to cover for possible tubo-ovarian abscess although less likely with recent negative STD screen and outpatient follow-up with OBGYN in 2 weeks in regard to complex cyst of left ovary he recommend outpatient pelvic MRI for further evaluation. outpatient endometrial sampling versus hysteroscopy D&C polypectomy for postmenopausal bleeding. Acute hypomagnesemia repleted and normalized. Acute hypokalemia repleted. Dysuria. resolved, UA showed no bacteria. Over reactive bladder. Continue Myrbetriq. Tobacco smoking. Tobacco cessation education. DVT prophylaxis: Heparin Code status: Full Patient will need continued inpatient hospitalization for IV antibiotics for acute diverticulitis and abscess will possibly undergo Surgery on 04/21.. Quality Stroke Does the patient have a stroke diagnosis?: No VTE Prior VTE?: No VTE Risk Level:: Medical - moderate - high VTE Device Contraindication: Treatment Not Indicated VTE Drug Contraindication: N/A - Med Ordered
[2024-04-20] MEDS: PEG 3350/Na Sulf,Bicarb,Cl/KCL 4,000 ML SOLN.RECON 4000 ML PO (13:07)
[2024-04-20] MEDS: neoMYCIN Sulfate 500 MG TABLET 1000 MG PO ×3 (13:08→22:42)
[2024-04-20] MEDS: Erythromycin Base 250 MG TABLET 1000 MG PO ×3 (13:08→21:29)
[2024-04-20] MEDS: Prochlorperazine Edisylate 10 MG/2 ML VIAL 5 MG IVPUSH (16:18)
[2024-04-20] MEDS: cefTRIAXone sodium 1 GM in 0.9 % Sodium Chloride 50 ML IV (22:38)
[2024-04-21] VITALS (14 sets, daily range): BP systolic 101–158; BP diastolic 62–88; PULSE 71–111; RESP 14–22; TEMP 36.3–37.1; O2SAT 93–96
--- NOTE | 2024-04-21 00:37 | PC.NURSE ---
Addendum entered by Sindy Centeno RN 04/21/24 06:38: Report called to short stay surgery per RN [email or web address] request that stated anticipated pickup at 07:30 this morning. Handoff report given to oncoming RN. Original Note: Patient requesting Can you please not wake me up for vitals at four a.m.? I'd like to get more than two hours of sleep tonight . Plan discussed with patient; patient requests to do vitals around 01:30 when due for next IV pain medication instead of 23:00 and 04:00 vitals. Plan discussed with [employer] as well. Patient finished her bowel prep drink and has been NPO since midnight as ordered for OR on 04/21. Denies n/v. 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 Reports pain is well managed with current regimen. Safety measures in place.
[2024-04-21] MEDS: Morphine Sulfate 4 MG/ML CARTRIDGE 3 MG IVPUSH ×5 (01:34→23:42)
[2024-04-21] MEDS: metroNIDAZOLE/NS 500 MG/100 ML PIGGYBACK 100 MG IV ×3 (06:11→21:33)
[2024-04-21] MEDS: 0.9 % Sodium Chloride Flush 3 ML SYRINGE IVFLUSH ×3 (07:25→20:34)
--- NOTE | 2024-04-21 07:59 | HO.ANESPROP2 ---
[facility] Active Problems Active Problems: All Active Problems Diverticulitis large intestine (Acute) Intra-abdominal abscess (Acute) Postmenopausal bleeding (Acute) Complex cyst of left ovary (Acute) Tubo-ovarian abscess (Acute) New onset of congestive heart failure (Acute) Cardiomyopathy (Acute) Sinus tachycardia (Acute) Encounter for well woman exam with routine gynecological exam (Acute) Hyponatremia (Acute) Ulcerative colitis (Acute) Proctitis (Acute) Pre-op examination (Acute) History of colon polyps (Acute) Back pain (Acute) Diverticulitis (Acute) Left sided abdominal pain (Acute) High cholesterol (Acute) Hypertension (Acute) Sensation of pressure in bladder area (Acute) Urinary urgency (Acute) Stress incontinence (Acute) Microhematuria (Acute) Past Medical History Medical History Hx of sigmoidoscopy Pyelonephritis Nephrolithiasis Ureterolithiasis Insomnia History of hypertension Tobacco dependence Urinary incontinence Lumbar spinal stenosis Cervical spondylosis Lumbar radiculopathy Fibromyalgia Degenerative joint disease of spine Functional capacity: independent ambulation Patient : No Family History Family History Father Esophageal cancer Mother Diabetes mellitus Maternal Grandfather Diabetes mellitus Family history of problems with anesthesia: No Surgical History Surgical History H/O colonoscopy History of facial surgery History of salpingectomy History of hip surgery History of right knee surgery History of Problems with Anesthesia: No Social History Social History Household Members: Family Household Members Other:: Patient lives by herself Housing: House Do you presently have visiting nurse or other home services: No Alcohol intake: current Alcohol intake frequency: 3 or more drinks per day Alcohol type: beer Patient Tobacco Use Status: Current everyday Tobacco user Tobacco use type: Cigarette Cigarette Packs Per Day: 1 Cigarettes Per Day: 20.0 Years Smoked: 30 Substance Use Type: Marijuana Advance Directives Date on File: 05/28/23 service: No Sexual orientation: Straight/Heterosexual Gender identity: Female Meds Allergies Allergy/AdvReac Type Severity Reaction Status Date / Time amoxicillin [From Augmentin] Allergy Intermediate Vomiting Verified 04/15/24 15:00 clavulanic acid Allergy Intermediate Vomiting Verified 04/15/24 15:00 [From Augmentin] nitrofurantoin AdvReac Severe Shortness Verified 04/15/24 15:16 of Breath Active Medications: Current Medications Acetaminophen (Acetaminophen 325 Mg Tablet) 975 mg PO Q6H PRN PRN Reason: Pain, Mild (Pain Scale 1-3), fever or headache Last Admin: 04/16/24 14:03 Dose: 975 mg Albuterol Sulfate (Albuterol Sulfate 90 Mcg 8 Gm Inhaler) 2 puff INHALE RQ4H PRN PRN Reason: sob Benzonatate (Benzonatate 100 Mg Capsule) 100 mg PO TID PRN PRN Reason: Cough Heparin Sodium (Porcine) (Heparin Sodium,Porcine 5,000 Unit/Ml Vial) 5,000 unit SUBCUT Q8H [facility] Last Admin: 04/20/24 01:34 Dose: 5,000 unit Ceftriaxone Sodium 1 gm/ (Sodium Chloride) 50 mls @ 100 mls/hr IV Q24H [facility] Last Infusion: 04/20/24 23:08 Dose: Infused Metronidazole (Flagyl) 500 mg in 100 mls @ 100 mls/hr IV Q8H [facility] Last Infusion: 04/21/24 07:23 Dose: Infused Doxycycline Hyclate 100 mg/ (Sodium Chloride) 250 mls @ 166.67 mls/hr IV Q12H [facility] Last Infusion: 04/21/24 00:51 Dose: Infused Melatonin (Melatonin 3 Mg Tablet) 6 mg PO BEDTIME PRN PRN Reason: Insomnia Last Admin: 04/20/24 01:33 Dose: 6 mg Metoprolol Tartrate (Metoprolol Tartrate 12.5 Mg Halftab) 12.5 mg PO BID [facility]; Protocol Last Admin: 04/21/24 07:24 Dose: Not Given Mirabegron (Mirabegron 50 Mg Tab.Er.24h) 50 mg PO DAILY [facility] Last Admin: 04/21/24 07:24 Dose: Not Given Morphine Sulfate (Morphine Sulfate 4 Mg/Ml Cartridge) 3 mg IVPUSH Q4H PRN; Protocol PRN Reason: Pain, Severe (Pain Scale 7-10) Last Admin: 04/21/24 06:20 Dose: 3 mg Oxycodone HCl (Oxycodone Hcl Immed Release 5 Mg Tablet) 5 mg PO Q6H PRN PRN Reason: Pain, Moderate(Pain Scale 4-6) Last Admin: 04/20/24 22:37 Dose: 5 mg Prochlorperazine Edisylate (Prochlorperazine Edisylate 10 Mg/2 Ml Vial) 5 mg IVPUSH Q6H PRN PRN Reason: Nausea and Vomiting Last Admin: 04/20/24 16:18 Dose: 5 mg Sodium Chloride (0.9 % Sodium Chloride Flush 3 Ml Syringe) 3 ml IVFLUSH QSHIFT [facility] Last Admin: 04/21/24 07:25 Dose: 3 ml Valsartan (Valsartan 40 Mg Tablet) 20 mg PO BID [facility]; Protocol Last Admin: 04/21/24 07:24 Dose: Not Given Vitamin D (Cholecalciferol (Vitamin D3) 25 Mcg Tablet) 25 mcg PO DAILY [facility] Last Admin: 04/21/24 07:24 Dose: Not Given Home Medications ?Medication ?Instructions ?Recorded ?Confirmed ?Last Taken ?Type calcium carbonate (Oyster Shell 500 mg PO BID 02/22/23 04/15/24 04/15/24 History Calcium) cholecalciferol (vitamin D3) 25 25 mcg PO DAILY 02/22/23 04/15/24 04/15/24 History mcg (1,000 unit) tablet Exam Height,Weight and Vital Signs: Height 5 ft 2 in Weight 49.5 kg Last Vital Signs Temp 98.1 F 04/21/24 07:49 Pulse 95 04/21/24 07:49 Resp 18 04/21/24 07:49 BP 155/82 H 04/21/24 07:49 Pulse Ox 95 04/21/24 07:49 O2 Del Method Room Air 04/21/24 07:49 O2 Flow Rate 1 04/19/24 15:47 Pertinent Lab Results Pertinent Lab Results: Laboratory Tests 04/15/24 04/15/24 04/15/24 15:10 15:35 17:34 WBC 12.7 H RBC 4.76 Hgb 16.7 H Hct 45.1 MCV 94.7 MCH 35.1 H MCHC 37.0 H RDW 12.6 Plt Count 196 D MPV 9.2 L Immature Gran % (Auto) 0.5 H Neut % (Auto) 83.6 H Lymph % (Auto) 5.6 L Hill % (Auto) 7.9 Eos % (Auto) 2.0 Baso % (Auto) 0.4 Lymph # (Auto) 0.7 L Hill # (Auto) 1.0 Eos # (Auto) 0.3 Baso # (Auto) 0.1 Abs Immat Gran (auto) 0.06 H Absolute Neuts (auto) 10.6 H Absolute Nucleated RBC 0.000 Nucleated RBC % (auto) 0.0 D-Dimer High Sensitivty 302 Sodium 130 L Potassium 2.9 L* Chloride 95 L Carbon Dioxide 23 Anion Gap 15 BUN 8 L Creatinine 0.60 Estim Creat Clear Calc 79.8 Estimated GFR > 60 Random Glucose 120 H Estimat Average Glucose Hemoglobin A1c % Calcium 10.2 Magnesium 1.4 L* Total Bilirubin 1.2 H AST 19 ALT 16 Alkaline Phosphatase 77 Troponin I High Sens 5.9 B-Natriuretic Peptide 24 Total Protein 8.3 H Albumin 4.1 Triglycerides Cholesterol LDL Cholesterol, Calc HDL Cholesterol TSH 2.02 Urine Color Urine Appearance Urine pH Ur Specific [place] Urine Protein Urine Glucose (UA) Urine Ketones Urine Blood Urine Nitrite Ur Leukocyte Esterase Urine RBC Urine WBC Ur Squamous Epith Cells Urine Bacteria Hyaline Casts Chlam trachomat DNA PCR Influenza Type A (PCR) NEGATIVE Influenza Type B (PCR) NEGATIVE N.gonorrhoeae DNA (PCR) RSV RNA Qual (PCR) NEGATIVE SARS-CoV-2 RNA (RT-PCR) NEGATIVE T. vaginalis (PCR) Bact Vaginosis (PCR) C. krusei/glabrata (PCR) Mila group (PCR) Blood Type Antibody Screen 04/15/24 04/16/24 04/16/24 22:41 04:33 15:00 WBC 7.5 RBC 4.16 L Hgb 14.4 Hct 40.8 MCV 98.1 H MCH 34.6 H MCHC 35.3 H RDW 12.9 Plt Count 194 MPV 9.6 Immature Gran % (Auto) 0.5 H Neut % (Auto) 75.9 H Lymph % (Auto) 8.1 L Hill % (Auto) 10.7 Eos % (Auto) 4.4 H Baso % (Auto) 0.4 Lymph # (Auto) 0.6 L Hill # (Auto) 0.8 Eos # (Auto) 0.3 Baso # (Auto) 0.0 Abs Immat Gran (auto) 0.04 H Absolute Neuts (auto) 5.7 Absolute Nucleated RBC 0.000 Nucleated RBC % (auto) 0.0 D-Dimer High Sensitivty Sodium 133 L 135 Potassium 3.4 3.7 Chloride 97 106 Carbon Dioxide 24 20 L Anion Gap 15 13 BUN 7 L 6 L Creatinine 0.59 0.53 Estim Creat Clear Calc 81.2 90.4 Estimated GFR > 60 > 60 Random Glucose 151 H 113 Estimat Average Glucose 88 Hemoglobin A1c % 4.7 Calcium 8.8 D 8.7 Magnesium 2.8 H 2.3 Total Bilirubin AST ALT Alkaline Phosphatase Troponin I High Sens 2.8 D B-Natriuretic Peptide Total Protein Albumin Triglycerides 109 Cholesterol 122 LDL Cholesterol, Calc 74 HDL Cholesterol 27 L TSH Urine Color Urine Appearance Urine pH Ur Specific [place] Urine Protein Urine Glucose (UA) Urine Ketones Urine Blood Urine Nitrite Ur Leukocyte Esterase Urine RBC Urine WBC Ur Squamous Epith Cells Urine Bacteria Hyaline Casts Chlam trachomat DNA PCR NOT DETECTED Influenza Type A (PCR) Influenza Type B (PCR) N.gonorrhoeae DNA (PCR) NOT DETECTED RSV RNA Qual (PCR) SARS-CoV-2 RNA (RT-PCR) T. vaginalis (PCR) NOT DETECTED Bact Vaginosis (PCR) NEGATIVE C. krusei/glabrata (PCR) NOT DETECTED Mila group (PCR) DETECTED A Blood Type Antibody Screen 04/16/24 04/20/24 04/20/24 17:05 05:59 09:47 WBC 12.4 H RBC 3.91 L Hgb 13.6 Hct 39.1 MCV 100.0 H MCH 34.8 H MCHC 34.8 RDW 12.6 Plt Count 384 D MPV 9.5 Immature Gran % (Auto) Neut % (Auto) Lymph % (Auto) Hill % (Auto) Eos % (Auto) Baso % (Auto) Lymph # (Auto) Hill # (Auto) Eos # (Auto) Baso # (Auto) Abs Immat Gran (auto) Absolute Neuts (auto) Absolute Nucleated RBC 0.000 Nucleated RBC % (auto) 0.0 D-Dimer High Sensitivty Sodium 137 Potassium 3.4 Chloride 103 Carbon Dioxide 25 Anion Gap 12 BUN 4 L Creatinine 0.49 L Estim Creat Clear Calc 96.6 Estimated GFR > 60 Random Glucose 60 Estimat Average Glucose Hemoglobin A1c % Calcium 9.6 D Magnesium Total Bilirubin AST ALT Alkaline Phosphatase Troponin I High Sens B-Natriuretic Peptide Total Protein Albumin Triglycerides Cholesterol LDL Cholesterol, Calc HDL Cholesterol TSH Urine Color Dark Yellow Urine Appearance Turbid Urine pH 5.5 Ur Specific Clayton 1.025 Urine Protein 30 (1+) H Urine Glucose (UA) Negative Urine Ketones Negative Urine Blood Large (3+) H Urine Nitrite Negative Ur Leukocyte Esterase Large (3+) H Urine RBC >20 H Urine WBC >50 H Ur Squamous Epith Cells 0-2 Urine Bacteria None Seen Hyaline Casts 0-2 Chlam trachomat DNA PCR Influenza Type A (PCR) Influenza Type B (PCR) N.gonorrhoeae DNA (PCR) RSV RNA Qual (PCR) SARS-CoV-2 RNA (RT-PCR) T. vaginalis (PCR) Bact Vaginosis (PCR) C. krusei/glabrata (PCR) Mila group (PCR) Blood Type O Positive Antibody Screen NEGATIVE Assessment and Plan Final Anesthetic Review Family History of Problems with Anesthesia: No History of Problems with Anesthesia: No
[2024-04-21] MEDS: Lactated Ringers 1,000 ML 50 ML IVCONT (08:06)
--- NOTE | 2024-04-21 08:13 | HO.ANESPROP2 ---
[facility] Active Problems Active Problems: All Active Problems Diverticulitis large intestine (Acute) Intra-abdominal abscess (Acute) Postmenopausal bleeding (Acute) Complex cyst of left ovary (Acute) Tubo-ovarian abscess (Acute) New onset of congestive heart failure (Acute) Cardiomyopathy (Acute) Sinus tachycardia (Acute) Encounter for well woman exam with routine gynecological exam (Acute) Hyponatremia (Acute) Ulcerative colitis (Acute) Proctitis (Acute) Pre-op examination (Acute) History of colon polyps (Acute) Back pain (Acute) Diverticulitis (Acute) Left sided abdominal pain (Acute) High cholesterol (Acute) Hypertension (Acute) Sensation of pressure in bladder area (Acute) Urinary urgency (Acute) Stress incontinence (Acute) Microhematuria (Acute) Past Medical History Medical History Hx of sigmoidoscopy Pyelonephritis Nephrolithiasis Ureterolithiasis Insomnia History of hypertension Tobacco dependence Urinary incontinence Lumbar spinal stenosis Cervical spondylosis Lumbar radiculopathy Fibromyalgia Degenerative joint disease of spine Functional capacity: independent ambulation Family History Family History Father Esophageal cancer Mother Diabetes mellitus Maternal Grandfather Diabetes mellitus Family history of problems with anesthesia: No Surgical History Surgical History H/O colonoscopy History of facial surgery History of salpingectomy History of hip surgery History of right knee surgery History of Problems with Anesthesia: No Social History Social History Household Members: Family Household Members Other:: Patient lives by herself Housing: House Do you presently have visiting nurse or other home services: No Alcohol intake: current Alcohol intake frequency: 3 or more drinks per day Alcohol type: beer Patient Tobacco Use Status: Current everyday Tobacco user Tobacco use type: Cigarette Cigarette Packs Per Day: 1 Cigarettes Per Day: 20.0 Years Smoked: 30 Substance Use Type: Marijuana Advance Directives Date on File: 05/28/23 service: No Sexual orientation: Straight/Heterosexual Gender identity: Female Meds Allergies Allergy/AdvReac Type Severity Reaction Status Date / Time amoxicillin [From Augmentin] Allergy Intermediate Vomiting Verified 04/15/24 15:00 clavulanic acid Allergy Intermediate Vomiting Verified 04/15/24 15:00 [From Augmentin] nitrofurantoin AdvReac Severe Shortness Verified 04/15/24 15:16 of Breath Active Medications: Current Medications Acetaminophen (Acetaminophen 325 Mg Tablet) 975 mg PO Q6H PRN PRN Reason: Pain, Mild (Pain Scale 1-3), fever or headache Last Admin: 04/16/24 14:03 Dose: 975 mg Albuterol Sulfate (Albuterol Sulfate 90 Mcg 8 Gm Inhaler) 2 puff INHALE RQ4H PRN PRN Reason: sob Benzonatate (Benzonatate 100 Mg Capsule) 100 mg PO TID PRN PRN Reason: Cough Heparin Sodium (Porcine) (Heparin Sodium,Porcine 5,000 Unit/Ml Vial) 5,000 unit SUBCUT Q8H [facility] Last Admin: 04/20/24 01:34 Dose: 5,000 unit Ceftriaxone Sodium 1 gm/ (Sodium Chloride) 50 mls @ 100 mls/hr IV Q24H [facility] Last Infusion: 04/20/24 23:08 Dose: Infused Metronidazole (Flagyl) 500 mg in 100 mls @ 100 mls/hr IV Q8H [facility] Last Infusion: 04/21/24 07:23 Dose: Infused Doxycycline Hyclate 100 mg/ (Sodium Chloride) 250 mls @ 166.67 mls/hr IV Q12H [facility] Last Infusion: 04/21/24 00:51 Dose: Infused Lactated Ringer's (Lr) 1,000 mls @ 50 mls/hr IVCONT .Q20H [facility] Last Admin: 04/21/24 08:06 Dose: 50 mls/hr Melatonin (Melatonin 3 Mg Tablet) 6 mg PO BEDTIME PRN PRN Reason: Insomnia Last Admin: 04/20/24 01:33 Dose: 6 mg Metoprolol Tartrate (Metoprolol Tartrate 12.5 Mg Halftab) 12.5 mg PO BID [facility]; Protocol Last Admin: 04/21/24 07:24 Dose: Not Given Mirabegron (Mirabegron 50 Mg Tab.Er.24h) 50 mg PO DAILY [facility] Last Admin: 04/21/24 07:24 Dose: Not Given Morphine Sulfate (Morphine Sulfate 4 Mg/Ml Cartridge) 3 mg IVPUSH Q4H PRN; Protocol PRN Reason: Pain, Severe (Pain Scale 7-10) Last Admin: 04/21/24 06:20 Dose: 3 mg Oxycodone HCl (Oxycodone Hcl Immed Release 5 Mg Tablet) 5 mg PO Q6H PRN PRN Reason: Pain, Moderate(Pain Scale 4-6) Last Admin: 04/20/24 22:37 Dose: 5 mg Prochlorperazine Edisylate (Prochlorperazine Edisylate 10 Mg/2 Ml Vial) 5 mg IVPUSH Q6H PRN PRN Reason: Nausea and Vomiting Last Admin: 04/20/24 16:18 Dose: 5 mg Sodium Chloride (0.9 % Sodium Chloride Flush 3 Ml Syringe) 3 ml IVFLUSH QSHIFT [facility] Last Admin: 04/21/24 07:25 Dose: 3 ml Valsartan (Valsartan 40 Mg Tablet) 20 mg PO BID [facility]; Protocol Last Admin: 04/21/24 07:24 Dose: Not Given Vitamin D (Cholecalciferol (Vitamin D3) 25 Mcg Tablet) 25 mcg PO DAILY [facility] Last Admin: 04/21/24 07:24 Dose: Not Given Home Medications ?Medication ?Instructions ?Recorded ?Confirmed ?Last Taken ?Type calcium carbonate (Oyster Shell 500 mg PO BID 02/22/23 04/15/24 04/15/24 History Calcium) cholecalciferol (vitamin D3) 25 25 mcg PO DAILY 02/22/23 04/15/24 04/15/24 History mcg (1,000 unit) tablet Exam Height,Weight and Vital Signs: Height 5 ft 2 in Weight 49.5 kg Last Vital Signs Temp 98.4 F 04/21/24 08:01 Pulse 75 04/21/24 08:01 Resp 18 04/21/24 08:01 BP 110/78 04/21/24 08:01 Pulse Ox 94 04/21/24 08:01 O2 Del Method Room Air 04/21/24 08:01 O2 Flow Rate 1 04/19/24 15:47 Pertinent Lab Results Pertinent Lab Results: Laboratory Tests 04/15/24 04/15/24 04/15/24 15:10 15:35 17:34 WBC 12.7 H RBC 4.76 Hgb 16.7 H Hct 45.1 MCV 94.7 MCH 35.1 H MCHC 37.0 H RDW 12.6 Plt Count 196 D MPV 9.2 L Immature Gran % (Auto) 0.5 H Neut % (Auto) 83.6 H Lymph % (Auto) 5.6 L [place] % (Auto) 7.9 Eos % (Auto) 2.0 Baso % (Auto) 0.4 Lymph # (Auto) 0.7 L [place] # (Auto) 1.0 Eos # (Auto) 0.3 Baso # (Auto) 0.1 Abs Immat Gran (auto) 0.06 H Absolute Neuts (auto) 10.6 H Absolute Nucleated RBC 0.000 Nucleated RBC % (auto) 0.0 D-Dimer High Sensitivty 302 Sodium 130 L Potassium 2.9 L* Chloride 95 L Carbon Dioxide 23 Anion Gap 15 BUN 8 L Creatinine 0.60 Estim Creat Clear Calc 79.8 Estimated GFR > 60 Random Glucose 120 H Estimat Average Glucose Hemoglobin A1c % Calcium 10.2 Magnesium 1.4 L* Total Bilirubin 1.2 H AST 19 ALT 16 Alkaline Phosphatase 77 Troponin I High Sens 5.9 B-Natriuretic Peptide 24 Total Protein 8.3 H Albumin 4.1 Triglycerides Cholesterol LDL Cholesterol, Calc HDL Cholesterol TSH 2.02 Urine Color Urine Appearance Urine pH Ur Specific [place] Urine Protein Urine Glucose (UA) Urine Ketones Urine Blood Urine Nitrite Ur Leukocyte Esterase Urine RBC Urine WBC Ur Squamous Epith Cells Urine Bacteria Hyaline Casts Chlam trachomat DNA PCR Influenza Type A (PCR) NEGATIVE Influenza Type B (PCR) NEGATIVE N.gonorrhoeae DNA (PCR) RSV RNA Qual (PCR) NEGATIVE SARS-CoV-2 RNA (RT-PCR) NEGATIVE T. vaginalis (PCR) Bact Vaginosis (PCR) C. krusei/glabrata (PCR) Mila group (PCR) Blood Type Antibody Screen 04/15/24 04/16/24 04/16/24 22:41 04:33 15:00 WBC 7.5 RBC 4.16 L Hgb 14.4 Hct 40.8 MCV 98.1 H MCH 34.6 H MCHC 35.3 H RDW 12.9 Plt Count 194 MPV 9.6 Immature Gran % (Auto) 0.5 H Neut % (Auto) 75.9 H Lymph % (Auto) 8.1 L [place] % (Auto) 10.7 Eos % (Auto) 4.4 H Baso % (Auto) 0.4 Lymph # (Auto) 0.6 L [place] # (Auto) 0.8 Eos # (Auto) 0.3 Baso # (Auto) 0.0 Abs Immat Gran (auto) 0.04 H Absolute Neuts (auto) 5.7 Absolute Nucleated RBC 0.000 Nucleated RBC % (auto) 0.0 D-Dimer High Sensitivty Sodium 133 L 135 Potassium 3.4 3.7 Chloride 97 106 Carbon Dioxide 24 20 L Anion Gap 15 13 BUN 7 L 6 L Creatinine 0.59 0.53 Estim Creat Clear Calc 81.2 90.4 Estimated GFR > 60 > 60 Random Glucose 151 H 113 Estimat Average Glucose 88 Hemoglobin A1c % 4.7 Calcium 8.8 D 8.7 Magnesium 2.8 H 2.3 Total Bilirubin AST ALT Alkaline Phosphatase Troponin I High Sens 2.8 D B-Natriuretic Peptide Total Protein Albumin Triglycerides 109 Cholesterol 122 LDL Cholesterol, Calc 74 HDL Cholesterol 27 L TSH Urine Color Urine Appearance Urine pH Ur Specific [place] Urine Protein Urine Glucose (UA) Urine Ketones Urine Blood Urine Nitrite Ur Leukocyte Esterase Urine RBC Urine WBC Ur Squamous Epith Cells Urine Bacteria Hyaline Casts Chlam trachomat DNA PCR NOT DETECTED Influenza Type A (PCR) Influenza Type B (PCR) N.gonorrhoeae DNA (PCR) NOT DETECTED RSV RNA Qual (PCR) SARS-CoV-2 RNA (RT-PCR) T. vaginalis (PCR) NOT DETECTED Bact Vaginosis (PCR) NEGATIVE C. krusei/glabrata (PCR) NOT DETECTED Mila group (PCR) DETECTED A Blood Type Antibody Screen 04/16/24 04/20/24 04/20/24 17:05 05:59 09:47 WBC 12.4 H RBC 3.91 L Hgb 13.6 Hct 39.1 MCV 100.0 H MCH 34.8 H MCHC 34.8 RDW 12.6 Plt Count 384 D MPV 9.5 Immature Gran % (Auto) Neut % (Auto) Lymph % (Auto) [place] % (Auto) Eos % (Auto) Baso % (Auto) Lymph # (Auto) [place] # (Auto) Eos # (Auto) Baso # (Auto) Abs Immat Gran (auto) Absolute Neuts (auto) Absolute Nucleated RBC 0.000 Nucleated RBC % (auto) 0.0 D-Dimer High Sensitivty Sodium 137 Potassium 3.4 Chloride 103 Carbon Dioxide 25 Anion Gap 12 BUN 4 L Creatinine 0.49 L Estim Creat Clear Calc 96.6 Estimated GFR > 60 Random Glucose 60 Estimat Average Glucose Hemoglobin A1c % Calcium 9.6 D Magnesium Total Bilirubin AST ALT Alkaline Phosphatase Troponin I High Sens B-Natriuretic Peptide Total Protein Albumin Triglycerides Cholesterol LDL Cholesterol, Calc HDL Cholesterol TSH Urine Color Dark Yellow Urine Appearance Turbid Urine pH 5.5 Ur Specific [place] 1.025 Urine Protein 30 (1+) H Urine Glucose (UA) Negative Urine Ketones Negative Urine Blood Large (3+) H Urine Nitrite Negative Ur Leukocyte Esterase Large (3+) H Urine RBC >20 H Urine WBC >50 H Ur Squamous Epith Cells 0-2 Urine Bacteria None Seen Hyaline Casts 0-2 Chlam trachomat DNA PCR Influenza Type A (PCR) Influenza Type B (PCR) N.gonorrhoeae DNA (PCR) RSV RNA Qual (PCR) SARS-CoV-2 RNA (RT-PCR) T. vaginalis (PCR) Bact Vaginosis (PCR) C. krusei/glabrata (PCR) Mila group (PCR) Blood Type O Positive Antibody Screen NEGATIVE Assessment and Plan Final Anesthetic Review Family History of Problems with Anesthesia: No History of Problems with Anesthesia: No
--- NOTE | 2024-04-21 08:34 | MHC.SHP ---
Pre-Procedural Eval Section A - 24 Hr Update-Section A only Date of Service: 04/21/24 The patient is an INPATIENT: Yes Changes since office visit: Yes Patient answered all questions; No Cold of Flu in the past 2 weeks, No New Medical Problems and No Changes in Medication Section B - Complete if H&P > 30 days Chief Complaint: acute diverticulitis and bronchitis Allergies: Allergies Allergy/AdvReac Type Severity Reaction Status Date / Time amoxicillin [From Augmentin] Allergy Intermediate Vomiting Verified 04/15/24 15:00 clavulanic acid Allergy Intermediate Vomiting Verified 04/15/24 15:00 [From Augmentin] nitrofurantoin AdvReac Severe Shortness Verified 04/15/24 15:16 of Breath Plan Diagnosis/Plan: Unchanged I have reviewed the history and physical and performed a pertinent physical examination on my patient. No changes have occurred unless specified. Time Spent With Patient Time: Total time managing care of this patient today ____ minutes.
--- NOTE | 2024-04-21 08:40 | PM.PNGS ---
Subjective Subjective Date of Service: 04/21/24 <Yas Dick PA-C - Last Filed: 04/21/24 08:43> 04/21/24 <Tony Garnett MD - Last Filed: 04/21/24 09:10> Interval history: Awaiting surgery today. Had bowel prep yesterday. Reports clear liquid stools. <Yas Dick PA-C - Last Filed: 04/21/24 08:43> Physical Exam Vital Signs: Vital Signs: Last Vital Signs Temp 98.4 F 04/21/24 08:01 Pulse 75 04/21/24 08:01 Resp 18 04/21/24 08:01 BP 110/78 04/21/24 08:01 Pulse Ox 94 04/21/24 08:01 O2 Del Method Room Air 04/21/24 08:01 O2 Flow Rate 1 04/19/24 15:47 BMI result Body Mass Index 20.0 <Yas Dick PA-C - Last Filed: 04/21/24 08:43> Const: General: comfortable, no acute distress and alert <Yas Dick PA-C - Last Filed: 04/21/24 08:43> Orientation/consciousness: patient oriented x3 <Yas Dick PA-C - Last Filed: 04/21/24 08:43> Resp: Effort & Inspection: normal respiratory effort <Yas Dick PA-C - Last Filed: 04/21/24 08:43> GI: Inspection: No distended <Yas Dick PA-C - Last Filed: 04/21/24 08:43> Palpation (GI): Soft to palpation, Tenderness to palpation present (GI) ( LLQ ) and no guarding <Yas Dick PA-C - Last Filed: 04/21/24 08:43> Skin: General skin exam: no rashes or lesions noted <RUPERTO Bhagat Last Filed: 04/21/24 08:43> Neuro: General: patient oriented x3 and moves all extremities <Yas Dick PA-C - Last Filed: 04/21/24 08:43> Objective Data Active Medications Acetaminophen (Acetaminophen 325 Mg Tablet) 975 mg PO Q6H PRN PRN Reason: Pain, Mild (Pain Scale 1-3), fever or headache Last Admin: 04/16/24 14:03 Dose: 975 mg Documented By: INES Albuterol Sulfate (Albuterol Sulfate 90 Mcg 8 Gm Inhaler) 2 puff INHALE RQ4H PRN PRN Reason: sob Benzonatate (Benzonatate 100 Mg Capsule) 100 mg PO TID PRN PRN Reason: Cough Heparin Sodium (Porcine) (Heparin Sodium,Porcine 5,000 Unit/Ml Vial) 5,000 unit SUBCUT Q8H [facility] Last Admin: 04/20/24 01:34 Dose: 5,000 unit Documented By: SUSHMA Ceftriaxone Sodium 1 gm/ (Sodium Chloride) 50 mls @ 100 mls/hr IV Q24H [facility] Last Infusion: 04/20/24 23:08 Dose: Infused Documented By: JANEL Metronidazole (Flagyl) 500 mg in 100 mls @ 100 mls/hr IV Q8H [facility] Last Infusion: 04/21/24 07:23 Dose: Infused Documented By: GONZALO Doxycycline Hyclate 100 mg/ (Sodium Chloride) 250 mls @ 166.67 mls/hr IV Q12H [facility] Last Infusion: 04/21/24 00:51 Dose: Infused Documented By: JANEL Lactated Ringer's (Lr) 1,000 mls @ 50 mls/hr IVCONT .Q20H [facility] Last Admin: 04/21/24 08:06 Dose: 50 mls/hr Documented By: MAVERICK Melatonin (Melatonin 3 Mg Tablet) 6 mg PO BEDTIME PRN PRN Reason: Insomnia Last Admin: 04/20/24 01:33 Dose: 6 mg Documented By: SUSHMA Metoprolol Tartrate (Metoprolol Tartrate 12.5 Mg Halftab) 12.5 mg PO BID [facility]; Protocol Last Admin: 04/21/24 07:24 Dose: Not Given Documented By: GONZALO Non-Admin Reason: Med held for surgery Mirabegron (Mirabegron 50 Mg Tab.Er.24h) 50 mg PO DAILY [facility] Last Admin: 04/21/24 07:24 Dose: Not Given Documented By: GONZALO Non-Admin Reason: Med held for surgery Morphine Sulfate (Morphine Sulfate 4 Mg/Ml Cartridge) 3 mg IVPUSH Q4H PRN; Protocol PRN Reason: Pain, Severe (Pain Scale 7-10) Last Admin: 04/21/24 06:20 Dose: 3 mg Documented By: JANEL Oxycodone HCl (Oxycodone Hcl Immed Release 5 Mg Tablet) 5 mg PO Q6H PRN PRN Reason: Pain, Moderate(Pain Scale 4-6) Last Admin: 04/20/24 22:37 Dose: 5 mg Documented By: JANEL Prochlorperazine Edisylate (Prochlorperazine Edisylate 10 Mg/2 Ml Vial) 5 mg IVPUSH Q6H PRN PRN Reason: Nausea and Vomiting Last Admin: 04/20/24 16:18 Dose: 5 mg Documented By: STEVE Sodium Chloride (0.9 % Sodium Chloride Flush 3 Ml Syringe) [facility] Last Admin: 04/21/24 07:25 Dose: 3 ml Documented By: GONZALO Valsartan (Valsartan 40 Mg Tablet) 20 mg PO BID [facility]; Protocol Last Admin: 04/21/24 07:24 Dose: Not Given Documented By: GONZALO Non-Admin Reason: Med held for surgery Vitamin D (Cholecalciferol (Vitamin D3) 25 Mcg Tablet) 25 mcg PO DAILY [facility] Last Admin: 04/21/24 07:24 Dose: Not Given Documented By: GONZALO Non-Admin Reason: Med held for surgery <Yas Dick PA-C - Last Filed: 04/21/24 08:43> Labs CBC & Chem 7: 04/20/24 05:59 04/20/24 05:59 <Yas Dick PA-C - Last Filed: 04/21/24 08:43> Labs: Laboratory Results - last 24 hr 04/20/24 09:47 Blood Type O Positive Antibody Screen NEGATIVE <Yas Dick PA-C - Last Filed: 04/21/24 08:43> Procedures Date of Service Date of Service: 04/21/24 <Yas Dick PA-C - Last Filed: 04/21/24 08:43> 04/21/24 <Tony Garnett MD - Last Filed: 04/21/24 09:10> Progress Note: A&P Assessment and plan (1) Diverticulitis large intestine: Status: Acute <Yas Dick PA-C - Last Filed: 04/21/24 08:43> (2) Intra-abdominal abscess: Status: Acute <Yas Dick PA-C - Last Filed: 04/21/24 08:43> Assessment and Plan: Plan for MARYLU sigmoid colectomy today. All questions answered. <Yas Dick PA-C - Last Filed: 04/21/24 08:43> Time Spent With Patient Time: Total time managing care of this patient today ____ minutes. <Yas Dick PA-C - Last Filed: 04/21/24 08:43> Quality Stroke Does the patient have a stroke diagnosis?: No <Ysa Dick PA-C - Last Filed: 04/21/24 08:43> VTE Prior VTE?: No <Yas Dick PA-C - Last Filed: 04/21/24 08:43> VTE Risk Level:: Medical - moderate - high <Yas Dick PA-C - Last Filed: 04/21/24 08:43> VTE Device Contraindication: Treatment Not Indicated <Yas Dick PA-C - Last Filed: 04/21/24 08:43> VTE Drug Contraindication: N/A - Med Ordered <Yas Dick PA-C - Last Filed: 04/21/24 08:43>
--- NOTE | 2024-04-21 09:05 | HO.ANESPROP2 ---
[facility] Active Problems Active Problems: All Active Problems (Updated 04/18/24 @ 13:15 by Tony Garnett MD) Diverticulitis large intestine (Acute) Intra-abdominal abscess (Acute) Postmenopausal bleeding (Acute) Complex cyst of left ovary (Acute) Tubo-ovarian abscess (Acute) New onset of congestive heart failure (Acute) Cardiomyopathy (Acute) Sinus tachycardia (Acute) Encounter for well woman exam with routine gynecological exam (Acute) Hyponatremia (Acute) Ulcerative colitis (Acute) Proctitis (Acute) Pre-op examination (Acute) History of colon polyps (Acute) Back pain (Acute) Diverticulitis (Acute) Left sided abdominal pain (Acute) High cholesterol (Acute) Hypertension (Acute) Sensation of pressure in bladder area (Acute) Urinary urgency (Acute) Stress incontinence (Acute) Microhematuria (Acute) Past Medical History Medical History Hx of sigmoidoscopy Pyelonephritis Nephrolithiasis Ureterolithiasis Insomnia History of hypertension Tobacco dependence Urinary incontinence Lumbar spinal stenosis Cervical spondylosis Lumbar radiculopathy Fibromyalgia Degenerative joint disease of spine Functional capacity: independent ambulation Family History Family History Father Esophageal cancer Mother Diabetes mellitus Maternal Grandfather Diabetes mellitus Family history of problems with anesthesia: No Surgical History Surgical History H/O colonoscopy History of facial surgery History of salpingectomy History of hip surgery History of right knee surgery History of Problems with Anesthesia: No Social History Social History Household Members: Family Household Members Other:: Patient lives by herself Housing: House Do you presently have visiting nurse or other home services: No Alcohol intake: current Alcohol intake frequency: 3 or more drinks per day Alcohol type: beer Patient Tobacco Use Status: Current everyday Tobacco user Tobacco use type: Cigarette Cigarette Packs Per Day: 1 Cigarettes Per Day: 20.0 Years Smoked: 30 Substance Use Type: Marijuana Advance Directives Date on File: 05/28/23 service: No Sexual orientation: Straight/Heterosexual Gender identity: Female Meds Allergies Allergy/AdvReac Type Severity Reaction Status Date / Time amoxicillin [From Augmentin] Allergy Intermediate Vomiting Verified 04/15/24 15:00 clavulanic acid Allergy Intermediate Vomiting Verified 04/15/24 15:00 [From Augmentin] nitrofurantoin AdvReac Severe Shortness Verified 04/15/24 15:16 of Breath Active Medications: Current Medications Acetaminophen (Acetaminophen 325 Mg Tablet) 975 mg PO Q6H PRN PRN Reason: Pain, Mild (Pain Scale 1-3), fever or headache Last Admin: 04/16/24 14:03 Dose: 975 mg Albuterol Sulfate (Albuterol Sulfate 90 Mcg 8 Gm Inhaler) 2 puff INHALE RQ4H PRN PRN Reason: sob Benzonatate (Benzonatate 100 Mg Capsule) 100 mg PO TID PRN PRN Reason: Cough Heparin Sodium (Porcine) (Heparin Sodium,Porcine 5,000 Unit/Ml Vial) 5,000 unit SUBCUT Q8H [facility] Last Admin: 04/20/24 01:34 Dose: 5,000 unit Ceftriaxone Sodium 1 gm/ (Sodium Chloride) 50 mls @ 100 mls/hr IV Q24H [facility] Last Infusion: 04/20/24 23:08 Dose: Infused Metronidazole (Flagyl) 500 mg in 100 mls @ 100 mls/hr IV Q8H [facility] Last Infusion: 04/21/24 07:23 Dose: Infused Doxycycline Hyclate 100 mg/ (Sodium Chloride) 250 mls @ 166.67 mls/hr IV Q12H [facility] Last Infusion: 04/21/24 00:51 Dose: Infused Lactated Ringer's (Lr) 1,000 mls @ 50 mls/hr IVCONT .Q20H [facility] Last Admin: 04/21/24 08:06 Dose: 50 mls/hr Melatonin (Melatonin 3 Mg Tablet) 6 mg PO BEDTIME PRN PRN Reason: Insomnia Last Admin: 04/20/24 01:33 Dose: 6 mg Metoprolol Tartrate (Metoprolol Tartrate 12.5 Mg Halftab) 12.5 mg PO BID [facility]; Protocol Last Admin: 04/21/24 07:24 Dose: Not Given Mirabegron (Mirabegron 50 Mg Tab.Er.24h) 50 mg PO DAILY [facility] Last Admin: 04/21/24 07:24 Dose: Not Given Morphine Sulfate (Morphine Sulfate 4 Mg/Ml Cartridge) 3 mg IVPUSH Q4H PRN; Protocol PRN Reason: Pain, Severe (Pain Scale 7-10) Last Admin: 04/21/24 06:20 Dose: 3 mg Oxycodone HCl (Oxycodone Hcl Immed Release 5 Mg Tablet) 5 mg PO Q6H PRN PRN Reason: Pain, Moderate(Pain Scale 4-6) Last Admin: 04/20/24 22:37 Dose: 5 mg Prochlorperazine Edisylate (Prochlorperazine Edisylate 10 Mg/2 Ml Vial) 5 mg IVPUSH Q6H PRN PRN Reason: Nausea and Vomiting Last Admin: 04/20/24 16:18 Dose: 5 mg Sodium Chloride (0.9 % Sodium Chloride Flush 3 Ml Syringe) 3 ml IVFLUSH [facility] Last Admin: 04/21/24 07:25 Dose: 3 ml Valsartan (Valsartan 40 Mg Tablet) 20 mg PO BID [facility]; Protocol Last Admin: 04/21/24 07:24 Dose: Not Given Vitamin D (Cholecalciferol (Vitamin D3) 25 Mcg Tablet) 25 mcg PO DAILY [facility] Last Admin: 04/21/24 07:24 Dose: Not Given Home Medications ?Medication ?Instructions ?Recorded ?Confirmed ?Last Taken ?Type calcium carbonate (Oyster Shell 500 mg PO BID 02/22/23 04/15/24 04/15/24 History Calcium) cholecalciferol (vitamin D3) 25 25 mcg PO DAILY 02/22/23 04/15/24 04/15/24 History mcg (1,000 unit) tablet Exam Height,Weight and Vital Signs: Height 5 ft 2 in Weight 49.5 kg Last Vital Signs Temp 98.4 F 04/21/24 08:01 Pulse 75 04/21/24 08:01 Resp 18 04/21/24 08:01 BP 110/78 04/21/24 08:01 Pulse Ox 94 04/21/24 08:01 O2 Del Method Room Air 04/21/24 08:01 O2 Flow Rate 1 04/19/24 15:47 Pertinent Lab Results Pertinent Lab Results: Laboratory Tests 04/15/24 04/15/24 04/15/24 15:10 15:35 17:34 WBC 12.7 H RBC 4.76 Hgb 16.7 H Hct 45.1 MCV 94.7 MCH 35.1 H MCHC 37.0 H RDW 12.6 Plt Count 196 D MPV 9.2 L Immature Gran % (Auto) 0.5 H Neut % (Auto) 83.6 H Lymph % (Auto) 5.6 L [place] % (Auto) 7.9 Eos % (Auto) 2.0 Baso % (Auto) 0.4 Lymph # (Auto) 0.7 L [place] # (Auto) 1.0 Eos # (Auto) 0.3 Baso # (Auto) 0.1 Abs Immat Gran (auto) 0.06 H Absolute Neuts (auto) 10.6 H Absolute Nucleated RBC 0.000 Nucleated RBC % (auto) 0.0 D-Dimer High Sensitivty 302 Sodium 130 L Potassium 2.9 L* Chloride 95 L Carbon Dioxide 23 Anion Gap 15 BUN 8 L Creatinine 0.60 Estim Creat Clear Calc 79.8 Estimated GFR > 60 Random Glucose 120 H Estimat Average Glucose Hemoglobin A1c % Calcium 10.2 Magnesium 1.4 L* Total Bilirubin 1.2 H AST 19 ALT 16 Alkaline Phosphatase 77 Troponin I High Sens 5.9 B-Natriuretic Peptide 24 Total Protein 8.3 H Albumin 4.1 Triglycerides Cholesterol LDL Cholesterol, Calc HDL Cholesterol TSH 2.02 Urine Color Urine Appearance Urine pH Ur Specific [place] Urine Protein Urine Glucose (UA) Urine Ketones Urine Blood Urine Nitrite Ur Leukocyte Esterase Urine RBC Urine WBC Ur Squamous Epith Cells Urine Bacteria Hyaline Casts Chlam trachomat DNA PCR Influenza Type A (PCR) NEGATIVE Influenza Type B (PCR) NEGATIVE N.gonorrhoeae DNA (PCR) RSV RNA Qual (PCR) NEGATIVE SARS-CoV-2 RNA (RT-PCR) NEGATIVE T. vaginalis (PCR) Bact Vaginosis (PCR) C. krusei/glabrata (PCR) Mila group (PCR) Blood Type Antibody Screen 04/15/24 04/16/24 04/16/24 22:41 04:33 15:00 WBC 7.5 RBC 4.16 L Hgb 14.4 Hct 40.8 MCV 98.1 H MCH 34.6 H MCHC 35.3 H RDW 12.9 Plt Count 194 MPV 9.6 Immature Gran % (Auto) 0.5 H Neut % (Auto) 75.9 H Lymph % (Auto) 8.1 L [place] % (Auto) 10.7 Eos % (Auto) 4.4 H Baso % (Auto) 0.4 Lymph # (Auto) 0.6 L [place] # (Auto) 0.8 Eos # (Auto) 0.3 Baso # (Auto) 0.0 Abs Immat Gran (auto) 0.04 H Absolute Neuts (auto) 5.7 Absolute Nucleated RBC 0.000 Nucleated RBC % (auto) 0.0 D-Dimer High Sensitivty Sodium 133 L 135 Potassium 3.4 3.7 Chloride 97 106 Carbon Dioxide 24 20 L Anion Gap 15 13 BUN 7 L 6 L Creatinine 0.59 0.53 Estim Creat Clear Calc 81.2 90.4 Estimated GFR > 60 > 60 Random Glucose 151 H 113 Estimat Average Glucose 88 Hemoglobin A1c % 4.7 Calcium 8.8 D 8.7 Magnesium 2.8 H 2.3 Total Bilirubin AST ALT Alkaline Phosphatase Troponin I High Sens 2.8 D B-Natriuretic Peptide Total Protein Albumin Triglycerides 109 Cholesterol 122 LDL Cholesterol, Calc 74 HDL Cholesterol 27 L TSH Urine Color Urine Appearance Urine pH Ur Specific [place] Urine Protein Urine Glucose (UA) Urine Ketones Urine Blood Urine Nitrite Ur Leukocyte Esterase Urine RBC Urine WBC Ur Squamous Epith Cells Urine Bacteria Hyaline Casts Chlam trachomat DNA PCR NOT DETECTED Influenza Type A (PCR) Influenza Type B (PCR) N.gonorrhoeae DNA (PCR) NOT DETECTED RSV RNA Qual (PCR) SARS-CoV-2 RNA (RT-PCR) T. vaginalis (PCR) NOT DETECTED Bact Vaginosis (PCR) NEGATIVE C. krusei/glabrata (PCR) NOT DETECTED Mila group (PCR) DETECTED A Blood Type Antibody Screen 04/16/24 04/20/24 04/20/24 17:05 05:59 09:47 WBC 12.4 H RBC 3.91 L Hgb 13.6 Hct 39.1 MCV 100.0 H MCH 34.8 H MCHC 34.8 RDW 12.6 Plt Count 384 D MPV 9.5 Immature Gran % (Auto) Neut % (Auto) Lymph % (Auto) [place] % (Auto) Eos % (Auto) Baso % (Auto) Lymph # (Auto) [place] # (Auto) Eos # (Auto) Baso # (Auto) Abs Immat Gran (auto) Absolute Neuts (auto) Absolute Nucleated RBC 0.000 Nucleated RBC % (auto) 0.0 D-Dimer High Sensitivty Sodium 137 Potassium 3.4 Chloride 103 Carbon Dioxide 25 Anion Gap 12 BUN 4 L Creatinine 0.49 L Estim Creat Clear Calc 96.6 Estimated GFR > 60 Random Glucose 60 Estimat Average Glucose Hemoglobin A1c % Calcium 9.6 D Magnesium Total Bilirubin AST ALT Alkaline Phosphatase Troponin I High Sens B-Natriuretic Peptide Total Protein Albumin Triglycerides Cholesterol LDL Cholesterol, Calc HDL Cholesterol TSH Urine Color Dark Yellow Urine Appearance Turbid Urine pH 5.5 Ur Specific [place] 1.025 Urine Protein 30 (1+) H Urine Glucose (UA) Negative Urine Ketones Negative Urine Blood Large (3+) H Urine Nitrite Negative Ur Leukocyte Esterase Large (3+) H Urine RBC >20 H Urine WBC >50 H Ur Squamous Epith Cells 0-2 Urine Bacteria None Seen Hyaline Casts 0-2 Chlam trachomat DNA PCR Influenza Type A (PCR) Influenza Type B (PCR) N.gonorrhoeae DNA (PCR) RSV RNA Qual (PCR) SARS-CoV-2 RNA (RT-PCR) T. vaginalis (PCR) Bact Vaginosis (PCR) C. krusei/glabrata (PCR) Mila group (PCR) Blood Type O Positive Antibody Screen NEGATIVE Airway Mallampati Class: II TM Dist: >3cm Neck ROM: Full Heart: RRR Lungs: CTA Assessment and Plan Assessment Anesthesia Assessment: Anesthesia Plan Discussed, Smoking Cess. Discussed and Chart Reviewed Final Anesthetic Review Family History of Problems with Anesthesia: No History of Problems with Anesthesia: No NPO: Yes ASA Class: III Final Preanesthetic Review: Meds/Allgs Chart Reviewed, Consent Obtained/Reviewed and Anes Risks/Benef Reviewed Patient Risk: Intermediate Procedure Risk: Intermediate Anesthetic Plan Anesthetic Plan: GA Disposition: Standard PACU
--- NOTE | 2024-04-21 11:50 | HO.PM.IMPN ---
Subjective Subjective Date of Service: 04/21/24 Interval History: NPO for colectomy. No acute events overnight, vitals stable, no shortness of breath, no chest no lightheadedness or dizziness persistent abdominal pain. Review of Systems All other system reviewed and are negative Physical Exam Vital Signs: Vital Signs: Last Vital Signs Temp 98.4 F 04/21/24 08:01 Pulse 75 04/21/24 08:01 Resp 18 04/21/24 08:01 BP 110/78 04/21/24 08:01 Pulse Ox 94 04/21/24 08:01 O2 Del Method Room Air 04/21/24 08:01 O2 Flow Rate 1 04/19/24 15:47 BMI result Body Mass Index 20.0 Const: Other: General awake alert x3, in no acute distress. Anicteric sclera Neck no JVD. CVS regular rate rhythm, Respiratory lungs coarse breath sounds at bases, no respiratory distress, no wheeze, no rhonchi. Gastrointestinal abdomen soft, left lower quadrant tenderness with palpation, bowel sounds audible, no guarding , no rigidity. Extremities no edema. Neuro non focal Skin no rash Psych appropriate affect Objective Data Active Medications Acetaminophen (Acetaminophen 325 Mg Tablet) 975 mg PO Q6H PRN PRN Reason: Pain, Mild (Pain Scale 1-3), fever or headache Last Admin: 04/16/24 14:03 Dose: 975 mg Documented By: INES Albuterol Sulfate (Albuterol Sulfate 90 Mcg 8 Gm Inhaler) 2 puff INHALE RQ4H PRN PRN Reason: sob Benzonatate (Benzonatate 100 Mg Capsule) 100 mg PO TID PRN PRN Reason: Cough Droperidol (Droperidol 5 Mg/2 Ml Vial) 0.625 mg IVPUSH ONCE PRN PRN Reason: intractable nausea Stop: 04/21/24 15:07 Fentanyl (Fentanyl Citrate/Pf 100 Mcg/2 Ml Vial) 25 mcg IVPUSH Q5M PRN PRN Reason: Pain, Moderate(Pain Scale 4-6) Stop: 04/21/24 15:07 Heparin Sodium (Porcine) (Heparin Sodium,Porcine 5,000 Unit/Ml Vial) 5,000 unit SUBCUT Q8H [facility] Last Admin: 04/20/24 01:34 Dose: 5,000 unit Documented By: SUSHMA Hydromorphone HCl (Hydromorphone Hcl 0.5 Mg/0.5 Ml Syringe) 0.5 mg IVPUSH Q5M PRN PRN Reason: Pain, Severe (Pain Scale 7-10) Stop: 04/21/24 15:07 Ceftriaxone Sodium 1 gm/ (Sodium Chloride) 50 mls @ 100 mls/hr IV Q24H [facility] Last Infusion: 04/20/24 23:08 Dose: Infused Documented By: JANEL Metronidazole (Flagyl) 500 mg in 100 mls @ 100 mls/hr IV Q8H [facility] Last Infusion: 04/21/24 07:23 Dose: Infused Documented By: GONZALO Doxycycline Hyclate 100 mg/ (Sodium Chloride) 250 mls @ 166.67 mls/hr IV Q12H [facility] Last Infusion: 04/21/24 00:51 Dose: Infused Documented By: JANEL Lactated Ringer's (Lr) 1,000 mls @ 50 mls/hr IVCONT .Q20H [facility] Last Admin: 04/21/24 08:06 Dose: 50 mls/hr Documented By: MAVERICK Melatonin (Melatonin 3 Mg Tablet) 6 mg PO BEDTIME PRN PRN Reason: Insomnia Last Admin: 04/20/24 01:33 Dose: 6 mg Documented By: SUSHMA Metoprolol Tartrate (Metoprolol Tartrate 12.5 Mg Halftab) 12.5 mg PO BID [facility]; Protocol Last Admin: 04/21/24 07:24 Dose: Not Given Documented By: GONZALO Non-Admin Reason: Med held for surgery Mirabegron (Mirabegron 50 Mg Tab.Er.24h) 50 mg PO DAILY [facility] Last Admin: 04/21/24 07:24 Dose: Not Given Documented By: GONZALO Non-Admin Reason: Med held for surgery Morphine Sulfate (Morphine Sulfate 4 Mg/Ml Cartridge) 3 mg IVPUSH Q4H [facility]; Protocol PRN Reason: Pain, Severe (Pain Scale 7-10) Last Admin: 04/21/24 06:20 Dose: 3 mg Documented By: JANEL Oxycodone HCl (Oxycodone Hcl Immed Release 5 Mg Tablet) 5 mg PO Q6H PRN PRN Reason: Pain, Moderate(Pain Scale 4-6) Last Admin: 04/20/24 22:37 Dose: 5 mg Documented By: JANEL Prochlorperazine Edisylate (Prochlorperazine Edisylate 10 Mg/2 Ml Vial) 5 mg IVPUSH Q6H PRN PRN Reason: Nausea and Vomiting Last Admin: 04/20/24 16:18 Dose: 5 mg Documented By: STEVE Sodium Chloride (0.9 % Sodium Chloride Flush 3 Ml Syringe) 3 ml IVFLUSH QSHIFT [facility] Last Admin: 04/21/24 07:25 Dose: 3 ml Documented By: GONZALO Valsartan (Valsartan 40 Mg Tablet) 20 mg PO BID [facility]; Protocol Last Admin: 04/21/24 07:24 Dose: Not Given Documented By: GONZALO Non-Admin Reason: Med held for surgery Vitamin D (Cholecalciferol (Vitamin D3) 25 Mcg Tablet) 25 mcg PO DAILY [facility] Last Admin: 04/21/24 07:24 Dose: Not Given Documented By: GONZALO Non-Admin Reason: Med held for surgery Labs 04/20/24 05:59 04/20/24 05:59 Assessment and Plan (1) Diverticulitis large intestine: Status: Acute Plan Cathie Arguello is a 58 years old woman admitted with: Acute Hypoxic respiratory failure, suspected underlying COPD/acute bronchitis/no CHF No recurrent episode, hypoxia and shortness of breath resolved CTA chest showed no PE, but showed dependent infiltrates/ground-glass changes right greater than left suggestive of interstitial/alveolar pulmonary edema and less likely infectious Echo showed EF 35-40%, moderate global hypokinesis and impaired relaxation filling pattern, question stress-induced cardiomyopathy Clinically no evidence of systolic congestive heart failure, normal troponin and BNP Continue as needed albuterol/IS/ Seen by cardiology they recommend valsartan 20 b.i.d. and beta-blockers Outpatient follow-up with Cardiology Dr. Aguirre Sinus tachycardia with underlying left bundle branch block unknown duration Normal troponin x2, likely due to infection, underlying cardiomyopathy metoprolol 12.5 b.i.d. Acute diverticulitis. Persistent left lower quadrant abdominal pain/diarrhea, no worsening symptoms, WBC elevated 12.4,no fevers. Left adnexa structure likely possible diverticulitis with abscess collection, tubo-ovarian abscess less likely. Continue antibiotic therapy with Flagyl, ceftriaxone and doxycycline started 04/15. Seen by Dr. Garnett he recommend hand assisted laparoscopic sigmoid colectomy tentatively scheduled for Thursday 06/[address] Mandujano from OBGYN he agrees with current treatment with IV ceftriaxone, doxycycline and metronidazole till clinical improvement in 48-72 hours then he recommend doxycycline 100 mg b.i.d. and Flagyl 500 mg b.i.d. for total 14 days end date 04/29 to cover for possible tubo-ovarian abscess although less likely with recent negative STD screen and outpatient follow-up with OBGYN in 2 weeks in regard to complex cyst of left ovary he recommend outpatient pelvic MRI for further evaluation. outpatient endometrial sampling versus hysteroscopy D&C polypectomy for postmenopausal bleeding.(patient has an appointment with Dr. Mandujano on 05/08) Acute hypomagnesemia repleted and normalized. Acute hypokalemia repleted. Dysuria. resolved, UA showed no bacteria. Over reactive bladder. Continue Myrbetriq. Tobacco smoking. Tobacco cessation education. DVT prophylaxis: Heparin Code status: Full Patient will need continued inpatient hospitalization for IV antibiotics for acute diverticulitis and abscess , and to undergo surgery today (04/21.) Quality Stroke Does the patient have a stroke diagnosis?: No VTE Prior VTE?: No VTE Risk Level:: Medical - moderate - high VTE Device Contraindication: Treatment Not Indicated VTE Drug Contraindication: N/A - Med Ordered
--- NOTE | 2024-04-21 13:26 | P.OP_ITS ---
Operative Note Operative Note Date of Service: 04/21/24 Narrative: Preoperative diagnosis: Sigmoid diverticulitis with abscess Postoperative diagnosis: Same Procedure: Hand assisted laparoscopic sigmoid colectomy, colorectal anastomosis, drainage of abscess, extensive lysis of adhesions Surgeon: Tony Garnett MD Industrial Arts Teacher: Yas Dick PA-C, KARLEY Watters Anesthesia: General endotracheal Indications for procedure: 58-year-old female patient presenting with com plaints of pain in the left lower quadrant associated with difficulty with bowel movements and pain. Patient reports a bowel movement after each meal. Workup revealed extensive area of diverticulitis. There is a question of a pelvic abscess verses tubal abscess. Operative findings: Large area of diverticulitis involving the sigmoid colon with a perforation/abscess located in the pelvic wall. No tubal abscess identified. Specimen: Sigmoid colon, wound culture, pelvic abscess Estimated blood loss: 25 mL Complications: None Procedure details: Patient was brought to the OR and placed in a supine position. After administering general anesthesia, the patient was placed in a lithotomy position. A Worley catheter was inserted, and then the abdomen and perineum was prepped and draped in a sterile fashion. Surgical time-out was called the consent confirmed. Patient received ongoing preoperative antibiotics and Venodyne boots were in place. A tap block and rectus sheath block was previously applied by anesthesia. A 7.5 mm incision was then made in the lower midline and carried out through subcutaneous tissue, through linea alba into the peritoneum. Dense adhesions were identified in the anterior abdominal wall. This was taken down using gentle dissection. Extensive lysis of adhesion was performed at which point the hand port was inserted. The abdomen was insufflated to a pressure of 15 mmHg. A 12 mm trocar was then placed in the right upper quadrant. A LigaSure was then used to dissect the adhesions to the anterior abdominal wall. A 5 mm trocar was then placed in the upper midline and 5 mm trocar placed in the left upper quadrant. Once the it anterior abdominal wall he adhesions were completely taken down the patient was placed in a right lateral decubitus position. The left colon was then mobilized along the white line of [place]t using LigaSure. This was continued up to the splenic flexure. The splenic flexure was then completely mobilized. Dissection was then continued distally to the sigmoid colon. The sigmoid colon was found to be densely adherent to the pelvic sidewall. With dissection a abscess was identified into the pelvis. This was drained and cultures obtained. The sigmoid colon was noted to be very phlegmonous. Gentle dissection was then used to free the sigmoid colon down to the rectosigmoid junction. After an extensive amount of dissection a proximal line of division was identified in the proximal sigmoid colon. The mesentery was divided using LigaSure and a Endo-MILAGROS purple 60 stapler used to divide the bowel at this level. A LigaSure was then used to dissect mesentery below the sigmoid colon beyond the area of the diverticulitis. Hemostasis was assured using a suture LigaSure of 3-0 Polysorb sutures as well as LigaSure. Dissection was then continued below the area of diverticulitis to the area distal which was softer with a normal texture. At this point a 2nd firing of the Endo-MILAGROS using a curved stapler was used to divide the bowel. The specimen was removed and sent to pathology for further examination. At this point the pursestring clamp was applied to the descending colon and a pursestring applied. This was then opened and sequentially dilated. A 28 EEA stapler was then obtained. The anvil was placed in the descending colon and the pursestring tied. The rectum was then dilated using the EEA sizers. Stapler was then inserted and the spike passed through the staple line distally. The anvil the was connected to the spike and the stapler fired. Two complete donuts were identified. At this point a leak test was performed by filling the pelvis with saline solution and instilling air into the rectum. No leak could be identified. The anastomosis was reinforced using interrupted 3-0 Surgilon sutures. The abdomen was then thoroughly irrigated and suctioned dry. Fascia was then closed using a running 0 PDS looped suture. Fascia in the 12 mm trocar site was closed using a [id number] 0 Polysorb suture. All skin incisions were then closed using 4-0 Polysorb suture in a subcuticular fashion. Steri-Strips, 4 x 4 gauze and Tegaderm were then applied. The patient tolerated the procedure well. Sponge, instrument, and needle counts reported as correct. The patient was transferred to PACU in stable condition.
[2024-04-21] MEDS: HYDROmorphone HCl 0.5 MG/0.5 ML SYRINGE IVPUSH (13:45)
[2024-04-21] MEDS: fentaNYL citrate/PF 100 MCG/2 ML VIAL 25 MCG IVPUSH (14:13)
--- NOTE | 2024-04-21 14:41 | HO.ANESEVENT ---
Anesthesia Event Note Date of Service: 04/21/24 Event Note: called to PACU , pt complaining of right eye, sand like sensation and irrtation. appears to be a corneal abrasion. eye patched , will reassess in 24 hrs. Time Spent With Patient Time: Total time managing care of this patient today ____ minutes.
--- NOTE | 2024-04-21 16:02 | MHC.CM.PN ---
per rounds pt is not medically stable expected dc thurs or fri
[2024-04-21] MEDS: oxyCODONE HCl Immed Release 5 MG TABLET PO ×2 (16:20→22:48)
[2024-04-21] MEDS: Erythromycin Base 0.5% Oph Oin 1 GM TUBE 1 CM EYE-RIGHT ×2 (17:19→20:34)
[2024-04-21] MEDS: Valsartan 40 MG TABLET 20 MG PO (20:34)
[2024-04-21] MEDS: Metoprolol Tartrate 12.5 MG HALFTAB PO (20:34)
[2024-04-21] MEDS: cefTRIAXone sodium 1 GM in 0.9 % Sodium Chloride 50 ML IV (22:48)
[2024-04-21] MEDS: Doxycycline Hyclate 100 MG in 0.9 % Sodium Chloride 250 ML 166.7 MG IV (23:42)
[2024-04-22] MEDS: Melatonin 3 MG TABLET 6 MG PO (01:18)
[2024-04-22 03:19] VITALS: BP 122/71; PULSE 71; RESP 20; TEMP 35.8; O2SAT 93
[2024-04-22] MEDS: Morphine Sulfate 4 MG/ML CARTRIDGE 3 MG IVPUSH (05:33)
[2024-04-22] MEDS: metroNIDAZOLE/NS 500 MG/100 ML PIGGYBACK 100 MG IV ×3 (05:34→21:58)
[2024-04-22 06:54] LABS: Hematocrit 32.9 % (37.0-47.0); Hemoglobin 11.4 g/dl (12.0-16.0); Mean Corpuscular HGB Conc 34.7 g/dl (31.0-35.0); Mean Corpuscular Hemoglobin 34.7 pg (27.0-33.0); Mean Platelet Volume 9.3 fL (9.4-12.3); Platelet Count 433 X10*3/uL (160-400); Red Blood Count 3.29 X10*6/uL (4.20-5.50); Red Cell Distribution Width 12.8 % (11.0-16.0)
--- NOTE | 2024-04-22 06:56 | PM.PNGS ---
Subjective Subjective Date of Service: 04/22/24 <[facility] Last Filed: 04/22/24 07:07> 04/22/24 <Tony Garnett MD - Last Filed: 04/22/24 07:22> Interval history: Patient reports she is doing well overall. Says her pain is somewhat managed, but she thinks I'm getting used to the morphine and it's not helping like it used to . Currently receiving Morphine 3mg IV q4 hrs and oxycodone 5mg PO q 6 hrs. Tolerating clear liquids without difficulty. Interested in increasing diet today. Urinary catheter still in place. Has not passed gas or had a BM since surgery. Interested in ice pack for alternative pain control. Plans to work on increasing ambulation today. <[facility] Filed: 04/22/24 07:07> Physical Exam Vital Signs: Vital Signs: Last Vital Signs Temp 96.4 F L 04/22/24 03:19 Pulse 71 04/22/24 03:19 Resp 20 04/22/24 03:19 BP 122/71 04/22/24 03:19 Pulse Ox 93 04/22/24 03:19 O2 Del Method Nasal Cannula 04/22/24 03:19 O2 Flow Rate 2 04/22/24 03:19 BMI result Body Mass Index 20.0 <[facility] Filed: 04/22/24 07:07> Const: General: cooperative and healthy appearing <[facility] Filed: 04/22/24 07:07> Orientation/consciousness: patient oriented x3 <[facility] Filed: 04/22/24 07:07> Chest: Chest palpation & inspection: normal inspection of the chest <[facility] Filed: 04/22/24 07:07> Resp: Effort & Inspection: normal respiratory effort and able to speak in complete sentences <[facility] Filed: 04/22/24 07:07> Cardio: Rate: regular rate <[facility] Filed: 04/22/24 07:07> Rhythm: regular rhythm <[facility] Filed: 04/22/24 07:07> GI: Inspection: Yes normal to inspection, Yes distended (mildly) and Yes incision (bandages clean, dry and intact) <[facility] Filed: 04/22/24 07:07> Neuro: General: patient oriented x3 <[facility] Filed: 04/22/24 07:07> Extrem: General: Yes normal to inspection and Yes full ROM <[facility] Filed: 04/22/24 07:07> Objective Data Active Medications Acetaminophen (Acetaminophen 325 Mg Tablet) 975 mg PO Q6H PRN PRN Reason: Pain, Mild (Pain Scale 1-3), fever or headache Last Admin: 04/16/24 14:03 Dose: 975 mg Documented By: INES Albuterol Sulfate (Albuterol Sulfate 90 Mcg 8 Gm Inhaler) 2 puff INHALE RQ4H PRN PRN Reason: sob Benzonatate (Benzonatate 100 Mg Capsule) 100 mg PO TID PRN PRN Reason: Cough Erythromycin (Erythromycin Base 0.5% Oph Oin 1 Gm Tube) 1 cm EYE-RIGHT QID [facility] Last Admin: 04/21/24 20:34 Dose: 1 cm Documented By: JOZEF Heparin Sodium (Porcine) (Heparin Sodium,Porcine 5,000 Unit/Ml Vial) 5,000 unit SUBCUT Q12H [facility] Ceftriaxone Sodium 1 gm/ (Sodium Chloride) 50 mls @ 100 mls/hr IV Q24H [facility] Last Infusion: 04/21/24 23:34 Dose: Infused Documented By: JOZEF Metronidazole (Flagyl) 500 mg in 100 mls @ 100 mls/hr IV Q8H [facility] Last Infusion: 04/22/24 06:39 Dose: Infused Documented By: JOZEF Doxycycline Hyclate 100 mg/ (Sodium Chloride) 250 mls @ 166.67 mls/hr IV Q12H [facility] Last Infusion: 04/22/24 01:23 Dose: Infused Documented By: JOZEF Lactated Ringer's (Lr) 1,000 mls @ 50 mls/hr IVCONT .Q20H [facility] Last Admin: 04/22/24 06:04 Dose: Not Given Documented By: JOZEF Non-Admin Reason: IV Running Melatonin (Melatonin 3 Mg Tablet) 6 mg PO BEDTIME PRN PRN Reason: Insomnia Last Admin: 04/22/24 01:18 Dose: 6 mg Documented By: JOZEF Metoprolol Tartrate (Metoprolol Tartrate 12.5 Mg Halftab) 12.5 mg PO BID [facility]; Protocol Last Admin: 04/21/24 20:34 Dose: 12.5 mg Documented By: JOZEF Mirabegron (Mirabegron 50 Mg Tab.Er.24h) 50 mg PO DAILY [facility] Last Admin: 04/21/24 07:24 Dose: Not Given Documented By: GONZALO Non-Admin Reason: Med held for surgery Morphine Sulfate (Morphine Sulfate 4 Mg/Ml Cartridge) 3 mg IVPUSH Q4H PRN; Protocol PRN Reason: Pain, Severe (Pain Scale 7-10) Last Admin: 04/22/24 05:33 Dose: 3 mg Documented By: JOZEF Ondansetron HCl (Ondansetron Hcl 4 Mg/2 Ml Vial) 4 mg IVPUSH QID PRN PRN Reason: Nausea Oxycodone HCl (Oxycodone Hcl Immed Release 5 Mg Tablet) 5 mg PO Q6H PRN PRN Reason: Pain, Moderate(Pain Scale 4-6) Last Admin: 04/21/24 22:48 Dose: 5 mg Documented By: JOZEF Prochlorperazine Edisylate (Prochlorperazine Edisylate 10 Mg/2 Ml Vial) 5 mg IVPUSH Q6H PRN PRN Reason: Nausea and Vomiting Last Admin: 04/20/24 16:18 Dose: 5 mg Documented By: STEVE Sodium Chloride (0.9 % Sodium Chloride Flush 3 Ml Syringe) 3 ml IVFSH [facility] Last Admin: 04/21/24 20:34 Dose: 3 ml Documented By: JOZEF Valsartan (Valsartan 40 Mg Tablet) 20 mg PO BID [facility]; Protocol Last Admin: 04/21/24 20:34 Dose: 20 mg Documented By: JOZEF Vitamin D (Cholecalciferol (Vitamin D3) 25 Mcg Tablet) 25 mcg PO DAILY [facility] Last Admin: 04/21/24 07:24 Dose: Not Given Documented By: GONZALO Non-Admin Reason: Med held for surgery <[facility] [place] - Last Filed: 04/22/24 07:07> Labs CBC & Chem 7: 04/22/24 05:31 04/20/24 05:59 <[facility] Last Filed: 04/22/24 07:07> Labs: Laboratory Results - last 24 hr 04/22/24 05:31 MCV 100.0 H MCH 34.7 H MCHC 34.7 RDW 12.8 Plt Count 433 H MPV 9.3 L Absolute Nucleated RBC 0.000 Nucleated RBC % (auto) 0.0 <[facility] Filed: 04/22/24 07:07> Microbiology Microbiology Results: Microbiology 04/21/24 11:05 Gram Stain - Final Abscess Intra-abdominal <[facility] Last Filed: 04/22/24 07:07> Procedures Date of Service Date of Service: 04/22/24 <[facility] Last Filed: 04/22/24 07:07> 04/22/24 <Tony Garnett MD - Last Filed: 04/22/24 07:22> Progress Note: A&P Assessment and plan (1) Diverticulitis large intestine: Status: Acute <[facility] Last Filed: 04/22/24 07:07> (2) S/P laparoscopic colectomy: Status: Acute <[facility] Filed: 04/22/24 07:07> Assessment and Plan: Patient is s/p sigmoid colectomy and abscess drainage secondary to diverticulitis. Pain is overall well managed, will add order for ice pack. Will increase morphine to 4mg. Tolerating clear liquids without difficulty, can consider increasing diet. Encouraged ambulation. Order to remove levy catheter. <[facility] Filed: 04/22/24 07:07> Patient is s/p sigmoid colectomy and abscess drainage secondary to diverticulitis. Pain is overall well managed, will add order for ice pack. Will increase morphine to 4mg. Tolerating clear liquids without difficulty, can consider increasing diet. Encouraged ambulation. Order to remove levy catheter. Agree with the above assessment and plan. Patient reports feeling bloated with pain in the right lower quadrant mainly. Wounds are clean and intact. Abdomen distended. WBC increased after drainage of abscess. Encouraged patient to limit narcotic intake to reduce abdominal distension. Encouraged OOB and ambulation; Instructed patient on incentive spirometry, q1hr x10. Will hold to clear liquids for now due to the abdominal distension. <Tony Garnett MD - Last Filed: 04/22/24 07:22> Time Spent With Patient Time: Total time managing care of this patient today ____ minutes. <[facility] [place] - Last Filed: 04/22/24 07:07> Quality Stroke Does the patient have a stroke diagnosis?: No <[facility] Last Filed: 04/22/24 07:07> VTE Prior VTE?: No <[facility] Filed: 04/22/24 07:07> VTE Risk Level:: Medical - moderate - high <[facility] Filed: 04/22/24 07:07> VTE Device Contraindication: Treatment Not Indicated <[facility] Filed: 04/22/24 07:07> VTE Drug Contraindication: N/A - Med Ordered <[facility] Filed: 04/22/24 07:07>
[2024-04-22 07:25] LABS: Anion Gap 13 (12-20); Blood Urea Nitrogen 3 mg/dL (9-16); Calcium 8.8 mg/dL (8.4-10.2); Carbon Dioxide 27 mmol/L (22-29); Chloride 101 mmol/L (96-108); Creatinine Clr Calc Pharmacy 100.6; Estimated Glomerular Filt Rate > 60; Glucose Random 116 mg/dL (60-115); Potassium 2.9 mmol/L (3.3-5.1); Sodium 138 mmol/L (135-145)
[2024-04-22 07:33] VITALS: BP 112/62; PULSE 61; RESP 18; TEMP 36.8; O2SAT 96
[2024-04-22] MEDS: Acetaminophen 1,000 MG/100 ML PIGGYBACK 400 MG IV ×3 (07:39→19:06)
[2024-04-22] MEDS: oxyCODONE HCl Immed Release 5 MG TABLET PO ×3 (07:45→21:01)
[2024-04-22] MEDS: Potassium Chloride/H20 10 MEQ/100 ML PIGGYBACK 100 MEQ IV (08:04)
[2024-04-22] MEDS: Valsartan 40 MG TABLET 20 MG PO ×2 (08:40→21:02)
[2024-04-22] MEDS: Metoprolol Tartrate 12.5 MG HALFTAB PO ×2 (08:40→21:01)
[2024-04-22] MEDS: Erythromycin Base 0.5% Oph Oin 1 GM TUBE 1 CM EYE-RIGHT ×4 (08:40→21:01)
[2024-04-22] MEDS: Cholecalciferol (Vitamin D3) 25 MCG TABLET PO (08:40)
[2024-04-22] MEDS: Mirabegron 50 MG TAB.ER.24H PO (08:40)
--- NOTE | 2024-04-22 08:41 | HO.POSTANES ---
Post Anesthesia Evaluation Post Anesthesia Evaluation Date of Service: 04/21/24 Vital Signs: Vital Signs Temp Pulse Resp BP Pulse Ox O2 Del Method O2 Flow Rate 04/22/24 07:33 98.3 F 61 18 112/62 96 Nasal Cannula 2 04/22/24 03:19 96.4 F L 71 20 122/71 93 Nasal Cannula 2 04/21/24 23:32 97.6 F 71 17 114/62 95 Room Air Anesthesia: General Mental Status: Awake Pain Control: Satisfactory Nausea/Vomiting: None Hydration: Adequate Anesthesia-Related Issues: No Anes. Related Issues (eye irritation much better, patch will beoff in 24 hrs)
[2024-04-22] MEDS: Potassium Chloride ER 20 MEQ TAB.ER.PRT PO ×2 (09:11→21:01)
[2024-04-22] MEDS: Morphine Sulfate 4 MG/ML CARTRIDGE IVPUSH ×3 (10:53→21:58)
[2024-04-22 11:51] VITALS: BP 98/60; PULSE 59; RESP 18; TEMP 36.6; O2SAT 59
[2024-04-22] MEDS: Doxycycline Hyclate 100 MG in 0.9 % Sodium Chloride 250 ML 166.7 MG IV ×2 (11:59→23:48)
[2024-04-22] MEDS: Heparin Sodium,Porcine 5,000 UNIT/ML VIAL 5000 UNIT SUBCUT (14:53)
--- NOTE | 2024-04-22 15:10 | P.PNIM_ITS ---
Subjective Subjective Date of Service: 04/22/24 Interval History: No acute issues overnight. Pain control adequate Review of Systems Denies chest pain Denies shortness of breath Denies nausea vomiting diarrhea Admits to mild abdominal discomfort Physical Exam 2 Vital Signs: Vital Signs: Last Vital Signs Temp 98 F 04/22/24 11:51 Pulse 59 04/22/24 11:51 Resp 18 04/22/24 11:51 BP 98/60 04/22/24 11:51 Pulse Ox 59 L 04/22/24 11:51 O2 Del Method Nasal Cannula 04/22/24 11:51 O2 Flow Rate 2 04/22/24 11:51 BMI result Body Mass Index 20.0 Const: Other: Awake alert no acute distress Resp: Other: Clear to auscultation bilaterally no rales rhonchi or wheezes Cardio: Other: No S4; positive S1-S2; no S3 murmurs rubs or gallops GI: Other: Soft quiet bowel sounds. Diffusely tender to soft palpation Neuro: Other: Cranial nerves 2-12 grossly intact as tested. Sensation is intact bilaterally. Motor is 5/5 Extrem: Other: No edema bilaterally Objective Data Active Medications Albuterol Sulfate (Albuterol Sulfate 90 Mcg 8 Gm Inhaler) 2 puff INHALE RQ4H PRN PRN Reason: sob Benzonatate (Benzonatate 100 Mg Capsule) 100 mg PO TID PRN PRN Reason: Cough Erythromycin (Erythromycin Base 0.5% Oph Oin 1 Gm Tube) 1 cm EYE-RIGHT QID [facility] Last Admin: 04/22/24 13:13 Dose: 1 cm Documented By: GONZALO Heparin Sodium (Porcine) (Heparin Sodium,Porcine 5,000 Unit/Ml Vial) 5,000 unit SUBCUT Q12H [facility] Last Admin: 04/22/24 14:53 Dose: 5,000 unit Documented By: GONZALO Ceftriaxone Sodium 1 gm/ (Sodium Chloride) 50 mls @ 100 mls/hr IV Q24H [facility] Last Infusion: 04/21/24 23:34 Dose: Infused Documented By: JOZEF Metronidazole (Flagyl) 500 mg in 100 mls @ 100 mls/hr IV Q8H [facility] Last Admin: 04/22/24 14:54 Dose: 100 mls/hr Documented By: GONZALO Doxycycline Hyclate 100 mg/ (Sodium Chloride) 250 mls @ 166.67 mls/hr IV Q12H [facility] Last Infusion: 04/22/24 13:36 Dose: Infused Documented By: GONZALO Lactated Ringer's (Lr) 1,000 mls @ 50 mls/hr IVCONT .Q20H [facility] Last Admin: 04/22/24 06:04 Dose: Not Given Documented By: JOZEF Non-Admin Reason: IV Running Acetaminophen (Ofirmev) 1,000 mg in 100 mls @ 400 mls/hr IV Q6H [facility] Last Infusion: 04/22/24 14:01 Dose: Infused Documented By: GONZALO Melatonin (Melatonin 3 Mg Tablet) 6 mg PO BEDTIME PRN PRN Reason: Insomnia Last Admin: 04/22/24 01:18 Dose: 6 mg Documented By: JOZEF Metoprolol Tartrate (Metoprolol Tartrate 12.5 Mg Halftab) 12.5 mg PO BID [facility]; Protocol Last Admin: 04/22/24 08:40 Dose: 12.5 mg Documented By: GONZALO Mirabegron (Mirabegron 50 Mg Tab.Er.24h) 50 mg PO DAILY [facility] Last Admin: 04/22/24 08:40 Dose: 50 mg Documented By: GONZALO Morphine Sulfate (Morphine Sulfate 4 Mg/Ml Cartridge) 4 mg IVPUSH Q4H PRN; Protocol PRN Reason: Pain, Severe (Pain Scale 7-10) Last Admin: 04/22/24 10:53 Dose: 4 mg Documented By: GONZALO Ondansetron HCl (Ondansetron Hcl 4 Mg/2 Ml Vial) 4 mg IVPUSH QID PRN PRN Reason: Nausea Oxycodone HCl (Oxycodone Hcl Immed Release 5 Mg Tablet) 5 mg PO Q4H PRN PRN Reason: Pain, Moderate(Pain Scale 4-6) Last Admin: 04/22/24 15:00 Dose: 5 mg Documented By: GONZALO Potassium Chloride (Potassium Chloride Er 20 Meq Tab.Er.Prt) 20 meq PO BID [facility] Stop: 04/22/24 21:01 Last Admin: 04/22/24 09:11 Dose: 20 meq Documented By: GONZALO Prochlorperazine Edisylate (Prochlorperazine Edisylate 10 Mg/2 Ml Vial) 5 mg IVPUSH Q6H PRN PRN Reason: Nausea and Vomiting Last Admin: 04/20/24 16:18 Dose: 5 mg Documented By: STEVE Sodium Chloride (0.9 % Sodium Chloride Flush 3 Ml Syringe) 3 ml IVFLUSH QSHIFT [facility] Last Admin: 04/22/24 08:05 Dose: Not Given Documented By: GONZALO Non-Admin Reason: IV Running Valsartan (Valsartan 40 Mg Tablet) 20 mg PO BID [facility]; Protocol Last Admin: 04/22/24 08:40 Dose: 20 mg Documented By: GONZALO Vitamin D (Cholecalciferol (Vitamin D3) 25 Mcg Tablet) 25 mcg PO DAILY [facility] Last Admin: 04/22/24 08:40 Dose: 25 mcg Documented By: GONZALO Labs 04/22/24 05:31 04/22/24 05:31 Labs: Laboratory Results - last 24 hr 04/22/24 05:31 MCV 100.0 H MCH 34.7 H MCHC 34.7 RDW 12.8 Plt Count 433 H MPV 9.3 L Absolute Nucleated RBC 0.000 Nucleated RBC % (auto) 0.0 Anion Gap 13 Estim Creat Clear Calc 100.6 Estimated GFR > 60 Random Glucose 116 H Calcium 8.8 D Microbiology Microbiology Results: Microbiology 04/21/24 11:05 Gram Stain - Final Abscess Intra-abdominal Routine Culture - Preliminary No growth to date. Assessment and Plan (1) Diverticulitis large intestine: Status: Acute (2) S/P laparoscopic colectomy: Status: Acute Plan Cathie Arguello is a 58 years old woman admitted with: 1.Acute Hypoxic respiratory failure, suspected underlying COPD/acute bronchitis/no CHF -resolved -further treatment as per surgery 2.Acute diverticulitis... Status post colectomy -IV ceftriaxone, doxycycline and metronidazole till clinical improvement in 48- 72 hours then he recommend doxycycline 100 mg b.i.d. and Flagyl 500 mg b.i.d. x 14 days -status post colectomy -as per surgery Heparin Full Patient will need continued inpatient hospitalization for IV antibiotics for acute diverticulitis and abscess ; further plans as per surgery Quality Stroke Does the patient have a stroke diagnosis?: No VTE Prior VTE?: No VTE Risk Level:: Medical - moderate - high VTE Device Contraindication: Treatment Not Indicated VTE Drug Contraindication: N/A - Med Ordered
[2024-04-22 16:00] VITALS: BP 122/67; PULSE 57; RESP 18; TEMP 36.8; O2SAT 96
[2024-04-22] MEDS: Lactated Ringers 1,000 ML 50 ML IVCONT ×2 (17:54→21:07)
[2024-04-22 19:36] VITALS: BP 150/84; PULSE 58; RESP 18; TEMP 36.3; O2SAT 97
[2024-04-22] MEDS: 0.9 % Sodium Chloride Flush 3 ML SYRINGE IVFLUSH (21:03)
[2024-04-22] MEDS: cefTRIAXone sodium 1 GM in 0.9 % Sodium Chloride 50 ML IV (23:08)
[2024-04-22 23:56] VITALS: BP 144/72; PULSE 56; RESP 18; TEMP 36.3; O2SAT 95
[2024-04-23] VITALS (7 sets, daily range): BP systolic 114–160; BP diastolic 59–94; PULSE 52–72; RESP 16–18; TEMP 36.1–36.7; O2SAT 93–97
[2024-04-23] MEDS: Acetaminophen 1,000 MG/100 ML PIGGYBACK 400 MG IV ×4 (01:22→19:32)
[2024-04-23] MEDS: Heparin Sodium,Porcine 5,000 UNIT/ML VIAL 5000 UNIT SUBCUT ×2 (01:22→12:52)
[2024-04-23] MEDS: Melatonin 3 MG TABLET 6 MG PO (02:00)
[2024-04-23] MEDS: Morphine Sulfate 4 MG/ML CARTRIDGE IVPUSH ×5 (02:00→19:47)
[2024-04-23] MEDS: metroNIDAZOLE/NS 500 MG/100 ML PIGGYBACK 100 MG IV ×3 (05:39→21:22)
[2024-04-23 06:43] LABS: MANUAL DIFF FLAG NO
[2024-04-23 06:53] LABS: Basophils Absolute Auto 0.1 X10*3/uL (0.0-0.2); Basophils Percent Auto 0.3 % (0-2); Eosinophils Absolute Auto 0.2 X10*3/uL (0.0-0.4); Eosinophils Percent Auto 1.1 % (0-4); Hematocrit 31.8 % (37.0-47.0); Hemoglobin 10.9 g/dl (12.0-16.0); Imm Gran Abs Auto 0.11 X10*3/uL (0.00-0.03); Imm Gran Pct Auto 0.7 % (0.0-0.4); Lymphocytes Absolute Auto 3.4 X10*3/uL (1.2-4.9); Lymphocytes Percent Auto 22.4 % (20-40); Mean Corpuscular HGB Conc 34.3 g/dl (31.0-35.0); Mean Corpuscular Hemoglobin 34.3 pg (27.0-33.0); Mean Platelet Volume 9.3 fL (9.4-12.3); Monocytes Absolute Auto 1.2 X10*3/uL (0.1-1.2); Monocytes Percent Auto 7.8 % (2-11); Neutrophils Absolute Auto 10.2 x10*3/uL (2.0-8.3); Neutrophils Percent Auto 67.7 % (45-73); Platelet Count 464 X10*3/uL (160-400); Red Blood Count 3.18 X10*6/uL (4.20-5.50); Red Cell Distribution Width 12.9 % (11.0-16.0); White Blood Count 15.1 X10*3/uL (4.8-10.8)
--- NOTE | 2024-04-23 07:03 | P.PNGS_ITS ---
Subjective Subjective Date of Service: 04/23/24 <[facility] Last Filed: 04/23/24 07:16> 04/23/24 <Yas Dick PA-C - Last Filed: 04/23/24 08:02> 04/23/24 <Tony Garnett MD - Last Filed: 04/23/24 10:04> Interval history: Patient is doing well. She reports her pain is better controlled with increase in morphine to 4mg. She is tolerating full liquid diet but reports associated nausea with eating. She had a bowel movement overnight. She reports increased abdominal pain with trying to pass gas. <[facility] Last Filed: 04/23/24 07:16> Physical Exam 2 Vital Signs: Vital Signs: Last Vital Signs Temp 98 F 04/23/24 02:58 Pulse 57 04/23/24 02:58 Resp 18 04/23/24 02:58 BP 147/76 H 04/23/24 02:58 Pulse Ox 93 04/23/24 02:58 O2 Del Method Room Air 04/23/24 02:58 O2 Flow Rate 2 04/22/24 19:36 BMI result Body Mass Index 20.0 <[facility] Filed: 04/23/24 07:16> Const: General: cooperative and comfortable <[facility] Filed: 04/23/24 07:16> Orientation/consciousness: patient oriented x3 <[facility] Filed: 04/23/24 07:16> Chest: Chest palpation & inspection: normal inspection of the chest < [facility] Filed: 04/23/24 07:16> Resp: Effort & Inspection: normal respiratory effort and able to speak in complete sentences <[facility] Filed: 04/23/24 07:16> Cardio: Rate: regular rate <[facility] Filed: 04/23/24 07:16> Rhythm: regular rhythm <[facility] Filed: 04/23/24 07:16> Heart sounds: S1 normal heart sound present and S2 normal heart sound present <[facility] Filed: 04/23/24 07:16> GI: Inspection: Yes normal to inspection, Yes distended and Yes incision (clean, dry and intact) <[facility] Filed: 04/23/24 07:16> Percussion: Yes tympanic to percussion <[facility] Filed: 04/23/24 07:16> Neuro: General: patient oriented x3 <[facility] Filed: 04/23/24 07:16> Objective Data Active Medications Albuterol Sulfate (Albuterol Sulfate 90 Mcg 8 Gm Inhaler) 2 puff INHALE RQ4H PRN PRN Reason: sob Benzonatate (Benzonatate 100 Mg Capsule) 100 mg PO TID PRN PRN Reason: Cough Erythromycin (Erythromycin Base 0.5% Oph Oin 1 Gm Tube) 1 cm EYE-RIGHT QID [facility] Last Admin: 04/22/24 21:01 Dose: 1 cm Documented By: JOZEF Heparin Sodium (Porcine) (Heparin Sodium,Porcine 5,000 Unit/Ml Vial) 5,000 unit SUBCUT Q12H [facility] Last Admin: 04/23/24 01:22 Dose: 5,000 unit Documented By: SHITAL Ceftriaxone Sodium 1 gm/ (Sodium Chloride) 50 mls @ 100 mls/hr IV Q24H [facility] Last Infusion: 04/22/24 23:47 Dose: Infused Documented By: JOZEF Metronidazole (Flagyl) 500 mg in 100 mls @ 100 mls/hr IV Q8H [facility] Last Admin: 04/23/24 05:39 Dose: 100 mls/hr Documented By: JOZEF Doxycycline Hyclate 100 mg/ (Sodium Chloride) 250 mls @ 166.67 mls/hr IV Q12H [facility] Last Infusion: 04/23/24 01:33 Dose: Infused Documented By: SHITAL Lactated Ringer's (Lr) 1,000 mls @ 50 mls/hr IVCONT .Q20H [facility] Last Admin: 04/22/24 21:07 Dose: 50 mls/hr Documented By: JOZEF Acetaminophen (Ofirmev) 1,000 mg in 100 mls @ 400 mls/hr IV Q6H [facility] Last Infusion: 04/23/24 01:37 Dose: Infused Documented By: SHITAL Melatonin (Melatonin 3 Mg Tablet) 6 mg PO BEDTIME PRN PRN Reason: Insomnia Last Admin: 04/23/24 02:00 Dose: 6 mg Documented By: JOZEF Metoprolol Tartrate (Metoprolol Tartrate 12.5 Mg Halftab) 12.5 mg PO BID [facility]; Protocol Last Admin: 04/22/24 21:01 Dose: 12.5 mg Documented By: JOZEF Mirabegron (Mirabegron 50 Mg Tab.Er.24h) 50 mg PO DAILY [facility] Last Admin: 04/22/24 08:40 Dose: 50 mg Documented By: GONZALO Morphine Sulfate (Morphine Sulfate 4 Mg/Ml Cartridge) 4 mg IVPUSH Q4H PRN; Protocol PRN Reason: Pain, Severe (Pain Scale 7-10) Last Admin: 04/23/24 05:59 Dose: 4 mg Documented By: JOZEF Ondansetron HCl (Ondansetron Hcl 4 Mg/2 Ml Vial) 4 mg IVPUSH QID PRN PRN Reason: Nausea Oxycodone HCl (Oxycodone Hcl Immed Release 5 Mg Tablet) 5 mg PO Q4H PRN PRN Reason: Pain, Moderate(Pain Scale 4-6) Last Admin: 04/22/24 21:01 Dose: 5 mg Documented By: JOZEF Prochlorperazine Edisylate (Prochlorperazine Edisylate 10 Mg/2 Ml Vial) 5 mg IVPUSH Q6H PRN PRN Reason: Nausea and Vomiting Last Admin: 04/20/24 16:18 Dose: 5 mg Documented By: STEVE Sodium Chloride (0.9 % Sodium Chloride Flush 3 Ml Syringe) 3 ml [facility] Last Admin: 04/22/24 21:03 Dose: 3 ml Documented By: JOZEF Valsartan (Valsartan 40 Mg Tablet) 20 mg PO BID [facility]; Protocol Last Admin: 04/22/24 21:02 Dose: 20 mg Documented By: JOZEF Vitamin D (Cholecalciferol (Vitamin D3) 25 Mcg Tablet) 25 mcg PO DAILY [facility] Last Admin: 04/22/24 08:40 Dose: 25 mcg Documented By: GONZALO <[facility] Last Filed: 04/23/24 07:16> Labs CBC & Chem 7: 04/23/24 05:35 04/23/24 05:35 <[facility] [place] - Last Filed: 04/23/24 07:16> Labs: Laboratory Results - last 24 hr 04/22/24 04/23/24 05:31 05:35 MCV 100.0 H MCH 34.3 H MCHC 34.3 RDW 12.9 Plt Count 464 H MPV 9.3 L Immature Gran % (Auto) 0.7 H Neut % (Auto) 67.7 Lymph % (Auto) 22.4 Howard % (Auto) 7.8 Eos % (Auto) 1.1 Baso % (Auto) 0.3 Lymph # (Auto) 3.4 Howard # (Auto) 1.2 Eos # (Auto) 0.2 Baso # (Auto) 0.1 Abs Immat Gran (auto) 0.11 H Absolute Neuts (auto) 10.2 H Absolute Nucleated RBC 0.000 Nucleated RBC % (auto) 0.0 Anion Gap 13 Estim Creat Clear Calc 100.6 Estimated GFR > 60 Random Glucose 116 H Calcium 8.8 D <[facility] Last Filed: 04/23/24 07:16> Microbiology Microbiology Results: Microbiology 04/21/24 11:05 Gram Stain - Final Abscess Intra-abdominal Routine Culture - Preliminary No growth to date. <[facility] Last Filed: 04/23/24 07:16> Procedures Date of Service Date of Service: 04/23/24 <[facility] - Last Filed: 04/23/24 07:16> 04/23/24 <Yas Dick PA-C - Last Filed: 04/23/24 08:02> 04/23/24 <Tony Garnett MD - Last Filed: 04/23/24 10:04> Progress Note: A&P Assessment and plan (1) S/P laparoscopic colectomy: Status: Acute <[facility] Last Filed: 04/23/24 07:16> (2) Diverticulitis large intestine: Status: Acute <[facility] Last Filed: 04/23/24 07:16> (3) Intra-abdominal abscess: Status: Acute <[facility] Last Filed: 04/23/24 07:16> Assessment and Plan: Patient is s/p sigmoid colectomy secondary to diverticulitis. Her pain is better managed with increase of morphine yesterday, will continue current pain management. Abdomen is distended and she reports nausea with meals- would continue full liquid diet, can consider advancing this evening or tomorrow morning if symptoms improve. Encouraged ambulation, icing of the incision and incentive spirometry. < [facility] Last Filed: 04/23/24 07:16> Patient is s/p sigmoid colectomy secondary to diverticulitis. Her pain is better managed with increase of morphine yesterday, will continue current pain management. Abdomen is distended and she reports nausea with meals- would continue full liquid diet, can consider advancing this evening or tomorrow morning if symptoms improve. Encouraged ambulation, icing of the incision and incentive spirometry. Agree with above assessment and plan. POD #2 s/p Hand assisted laparoscopic sigmoid colectomy, colorectal anastomosis, drainage of abscess, extensive lysis of adhesions. Continues to do fairy well post op. Had some nausea following full liquids last night but reports passing more flatus and liquid BM overnight. VSS. Abd exam benign with appropriate post op tenderness, clean incisions, distention improved. If tolerating full liquids this morning, advance to solids. Dc IVF. Increase activity. WBC downtrending. Patient comfortable with plan. <Yas Dick PA-C - Last Filed: 04/23/24 08:02> Time Spent With Patient Time: Total time managing care of this patient today ____ minutes. <[facility] - Last Filed: 04/23/24 07:16> Quality Stroke Does the patient have a stroke diagnosis?: No <[facility] Last Filed: 04/23/24 07:16> VTE Prior VTE?: No <[facility] Last Filed: 04/23/24 07:16> VTE Risk Level:: Medical - moderate - high <[facility] - Last Filed: 04/23/24 07:16> VTE Device Contraindication: Treatment Not Indicated <[facility] - Last Filed: 04/23/24 07:16> VTE Drug Contraindication: N/A - Med Ordered <[facility] Last Filed: 04/23/24 07:16>
[2024-04-23 07:08] LABS: Alanine Aminotransferase 13 U/L (0-31); Alkaline Phosphatase 41 U/L (39-117); Anion Gap 11 (12-20); Aspartate Amino Transferase 20 U/L (5-31); Bilirubin Total 0.3 mg/dL (0.0-1.0); Blood Urea Nitrogen 3 mg/dL (9-16); Calcium 9.1 mg/dL (8.4-10.2); Carbon Dioxide 25 mmol/L (22-29); Chloride 104 mmol/L (96-108); Creatinine Clr Calc Pharmacy 98.6; Estimated Glomerular Filt Rate > 60; Glucose Fasting 74 mg/dL (60-99); Potassium 3.2 mmol/L (3.3-5.1); Sodium 137 mmol/L (135-145); Total Protein 5.7 g/dL (6.5-8.0)
[2024-04-23] MEDS: Valsartan 40 MG TABLET 20 MG PO ×2 (08:40→21:24)
[2024-04-23] MEDS: Metoprolol Tartrate 12.5 MG HALFTAB PO ×2 (08:41→21:24)
[2024-04-23] MEDS: Mirabegron 50 MG TAB.ER.24H PO (08:41)
[2024-04-23] MEDS: Cholecalciferol (Vitamin D3) 25 MCG TABLET PO (08:42)
[2024-04-23] MEDS: Erythromycin Base 0.5% Oph Oin 1 GM TUBE 1 CM EYE-RIGHT ×3 (08:42→21:22)
[2024-04-23] MEDS: 0.9 % Sodium Chloride Flush 3 ML SYRINGE IVFLUSH ×2 (08:46→16:20)
[2024-04-23] MEDS: oxyCODONE HCl Immed Release 5 MG TABLET PO ×3 (09:20→21:24)
--- NOTE | 2024-04-23 12:34 | P.PNIM_ITS ---
Subjective Subjective Date of Service: 04/23/24 Interval History: Slowly improving. Diet advanced to full liquids. Pain control adequate per patient Review of Systems Denies chest pain Denies shortness of breath Denies nausea vomiting diarrhea Admits to mild abdominal discomfort that is improving Physical Exam 2 Vital Signs: Vital Signs: Last Vital Signs Temp 97.9 F 04/23/24 11:21 Pulse 52 04/23/24 11:21 Resp 16 04/23/24 11:21 BP 114/59 L 04/23/24 11:21 Pulse Ox 95 04/23/24 11:21 O2 Del Method Room Air 04/23/24 11:21 O2 Flow Rate 2 04/22/24 19:36 BMI result Body Mass Index 20.0 Const: Other: Awake alert no acute distress Resp: Other: Clear to auscultation bilaterally no rales rhonchi or wheezes Cardio: Other: No S4; positive S1-S2; no S3 murmurs rubs or gallops GI: Other: Soft quiet bowel sounds. Diffusely tender to soft palpation Neuro: Other: Cranial nerves 2-12 grossly intact as tested. Sensation is intact bilaterally. Motor is 5/5 Extrem: Other: No edema bilaterally Objective Data Active Medications Albuterol Sulfate (Albuterol Sulfate 90 Mcg 8 Gm Inhaler) 2 puff INHALE RQ4H PRN PRN Reason: sob Benzonatate (Benzonatate 100 Mg Capsule) 100 mg PO TID PRN PRN Reason: Cough Erythromycin (Erythromycin Base 0.5% Oph Oin 1 Gm Tube) 1 cm EYE-RIGHT QID [facility] Last Admin: 04/23/24 08:42 Dose: 1 cm Documented By: FLIP Heparin Sodium (Porcine) (Heparin Sodium,Porcine 5,000 Unit/Ml Vial) 5,000 unit SUBCUT Q12H [facility] Last Admin: 04/23/24 01:22 Dose: 5,000 unit Documented By: SHITAL Ceftriaxone Sodium 1 gm/ (Sodium Chloride) 50 mls @ 100 mls/hr IV Q24H [facility] Last Infusion: 04/22/24 23:47 Dose: Infused Documented By: JOZEF Metronidazole (Flagyl) 500 mg in 100 mls @ 100 mls/hr IV Q8H [facility] Last Infusion: 04/23/24 07:00 Dose: Infused Documented By: FLIP Doxycycline Hyclate 100 mg/ (Sodium Chloride) 250 mls @ 166.67 mls/hr IV Q12H [facility] Last Infusion: 04/23/24 01:33 Dose: Infused Documented By: SHITAL Lactated Ringer's (Lr) 1,000 mls @ 50 mls/hr IVCONT .Q20H [facility] Last Admin: 04/22/24 21:07 Dose: 50 mls/hr Documented By: JOZEF Acetaminophen (Ofirmev) 1,000 mg in 100 mls @ 400 mls/hr IV Q6H [facility] Last Infusion: 04/23/24 09:19 Dose: Infused Documented By: FLIP Melatonin (Melatonin 3 Mg Tablet) 6 mg PO BEDTIME PRN PRN Reason: Insomnia Last Admin: 04/23/24 02:00 Dose: 6 mg Documented By: JOZEF Metoprolol Tartrate (Metoprolol Tartrate 12.5 Mg Halftab) 12.5 mg PO BID [facility]; Protocol Last Admin: 04/23/24 08:41 Dose: 12.5 mg Documented By: FLIP Mirabegron (Mirabegron 50 Mg Tab.Er.24h) 50 mg PO DAILY [facility] Last Admin: 04/23/24 08:41 Dose: 50 mg Documented By: FLIP Morphine Sulfate (Morphine Sulfate 4 Mg/Ml Cartridge) 4 mg IVPUSH Q4H PRN; Protocol PRN Reason: Pain, Severe (Pain Scale 7-10) Last Admin: 04/23/24 10:39 Dose: 4 mg Documented By: FLIP Ondansetron HCl (Ondansetron Hcl 4 Mg/2 Ml Vial) 4 mg IVPUSH QID PRN PRN Reason: Nausea Oxycodone HCl (Oxycodone Hcl Immed Release 5 Mg Tablet) 5 mg PO Q4H PRN PRN Reason: Pain, Moderate(Pain Scale 4-6) Last Admin: 04/23/24 09:20 Dose: 5 mg Documented By: FLIP Prochlorperazine Edisylate (Prochlorperazine Edisylate 10 Mg/2 Ml Vial) 5 mg IVPUSH Q6H PRN PRN Reason: Nausea and Vomiting Last Admin: 04/20/24 16:18 Dose: 5 mg Documented By: STEVE Sodium Chloride (0.9 % Sodium Chloride Flush 3 Ml Syringe) 3 ml IVFLUSH QSHIFT [facility] Last Admin: 04/23/24 08:46 Dose: 3 ml Documented By: FLIP Valsartan (Valsartan 40 Mg Tablet) 20 mg PO BID [facility]; Protocol Last Admin: 04/23/24 08:40 Dose: 20 mg Documented By: FLIP Vitamin D (Cholecalciferol (Vitamin D3) 25 Mcg Tablet) 25 mcg PO DAILY [facility] Last Admin: 04/23/24 08:42 Dose: 25 mcg Documented By: FLIP Labs 04/23/24 05:35 04/23/24 05:35 Labs: Laboratory Results - last 24 hr 04/23/24 05:35 MCV 100.0 H MCH 34.3 H MCHC 34.3 RDW 12.9 Plt Count 464 H MPV 9.3 L Immature Gran % (Auto) 0.7 H Neut % (Auto) 67.7 Lymph % (Auto) 22.4 [place] % (Auto) 7.8 Eos % (Auto) 1.1 Baso % (Auto) 0.3 Lymph # (Auto) 3.4 [place] # (Auto) 1.2 Eos # (Auto) 0.2 Baso # (Auto) 0.1 Abs Immat Gran (auto) 0.11 H Absolute Neuts (auto) 10.2 H Absolute Nucleated RBC 0.000 Nucleated RBC % (auto) 0.0 Anion Gap 11 L Estim Creat Clear Calc 98.6 Estimated GFR > 60 Fasting Glucose 74 Calcium 9.1 Total Bilirubin 0.3 AST 20 ALT 13 Alkaline Phosphatase 41 Total Protein 5.7 L Albumin 3.0 L Microbiology Microbiology Results: Microbiology 04/21/24 11:05 Gram Stain - Final Abscess Intra-abdominal Routine Culture - Preliminary Culture in progress. Assessment and Plan (1) Diverticulitis large intestine: Status: Acute (2) S/P laparoscopic colectomy: Status: Acute Plan Cathie Arguello is a 58 years old woman admitted with: 1.Acute Hypoxic respiratory failure, suspected underlying COPD/acute bronchitis/no CHF -resolved -further treatment as per surgery 2.Acute diverticulitis... Status post colectomy -IV ceftriaxone, doxycycline and metronidazole till clinical improvement in 48- 72 hours then he recommend doxycycline 100 mg b.i.d. and Flagyl 500 mg b.i.d. x 14 days -status post colectomy -as per surgery 3. Hypokalemia -replete -follow renals/divalents Heparin Full Patient will need continued inpatient hospitalization for IV antibiotics for acute diverticulitis and abscess ; further plans as per surgery Quality Stroke Does the patient have a stroke diagnosis?: No VTE Prior VTE?: No VTE Risk Level:: Medical - moderate - high VTE Device Contraindication: Treatment Not Indicated VTE Drug Contraindication: N/A - Med Ordered
[2024-04-23] MEDS: Potassium Chloride ER 20 MEQ TAB.ER.PRT PO ×2 (12:51→21:24)
[2024-04-23] MEDS: Doxycycline Hyclate 100 MG in 0.9 % Sodium Chloride 250 ML 166.7 MG IV (13:19)
[2024-04-23] MEDS: cefTRIAXone sodium 1 GM in 0.9 % Sodium Chloride 50 ML IV (22:50)
[2024-04-23] MEDS: Doxycycline Hyclate 100 MG in 0.9 % Sodium Chloride 250 ML 166.67 MG IV (23:28)
[2024-04-24] VITALS (9 sets, daily range): BP systolic 137–159; BP diastolic 69–91; PULSE 63–68; RESP 16–20; TEMP 36.1–36.7; O2SAT 93–95
[2024-04-24] MEDS: Heparin Sodium,Porcine 5,000 UNIT/ML VIAL 5000 UNIT SUBCUT ×2 (01:15→13:33)
[2024-04-24] MEDS: Melatonin 3 MG TABLET 6 MG PO (01:16)
[2024-04-24] MEDS: Morphine Sulfate 4 MG/ML CARTRIDGE IVPUSH ×5 (01:16→20:58)
[2024-04-24] MEDS: oxyCODONE HCl Immed Release 5 MG TABLET PO ×4 (03:19→19:52)
[2024-04-24 06:14] LABS: MANUAL DIFF FLAG NO
[2024-04-24] MEDS: metroNIDAZOLE/NS 500 MG/100 ML PIGGYBACK 100 MG IV ×3 (06:41→20:59)
[2024-04-24 06:43] LABS: Basophils Absolute Auto 0.1 X10*3/uL (0.0-0.2); Basophils Percent Auto 0.6 % (0-2); Eosinophils Absolute Auto 0.5 X10*3/uL (0.0-0.4); Eosinophils Percent Auto 4.5 % (0-4); Hematocrit 32.1 % (37.0-47.0); Hemoglobin 11.3 g/dl (12.0-16.0); Imm Gran Abs Auto 0.08 X10*3/uL (0.00-0.03); Imm Gran Pct Auto 0.7 % (0.0-0.4); Lymphocytes Absolute Auto 3.2 X10*3/uL (1.2-4.9); Lymphocytes Percent Auto 28.1 % (20-40); Mean Corpuscular HGB Conc 35.2 g/dl (31.0-35.0); Mean Corpuscular Hemoglobin 35.2 pg (27.0-33.0); Mean Platelet Volume 9.2 fL (9.4-12.3); Monocytes Absolute Auto 0.8 X10*3/uL (0.1-1.2); Neutrophils Absolute Auto 6.7 x10*3/uL (2.0-8.3); Neutrophils Percent Auto 59.1 % (45-73); Platelet Count 468 X10*3/uL (160-400); Red Blood Count 3.21 X10*6/uL (4.20-5.50); Red Cell Distribution Width 12.8 % (11.0-16.0); White Blood Count 11.4 X10*3/uL (4.8-10.8)
[2024-04-24 06:50] LABS: Alanine Aminotransferase 12 U/L (0-31); Albumin Level 3.1 g/dL (3.5-5.0); Alkaline Phosphatase 36 U/L (39-117); Anion Gap 11 (12-20); Aspartate Amino Transferase 18 U/L (5-31); Bilirubin Total 0.3 mg/dL (0.0-1.0); Blood Urea Nitrogen 3 mg/dL (9-16); Calcium 8.5 mg/dL (8.4-10.2); Carbon Dioxide 27 mmol/L (22-29); Chloride 104 mmol/L (96-108); Creatinine Clr Calc Pharmacy 112.6; Estimated Glomerular Filt Rate > 60; Glucose Fasting 83 mg/dL (60-99); Potassium 3.7 mmol/L (3.3-5.1); Sodium 138 mmol/L (135-145); Total Protein 5.9 g/dL (6.5-8.0)
--- NOTE | 2024-04-24 06:53 | P.PNGS_ITS ---
Subjective Subjective Date of Service: 04/24/24 <[facility] Last Filed: 04/24/24 07:10> 04/24/24 <Yas Dick PA-C - Last Filed: 04/24/24 07:46> 04/24/24 <Tony Garnett MD - Last Filed: 04/24/24 08:16> Interval history: Patient reports she is doing better overall. Reporting pain with urination and increased frequency. Bandages removed yesterday, steri strips are intact. Continues to complain of abdominal pain but reports the current pain management is helpful. Tolerating regular diet without nausea or vomiting. Reports loose BM overnight. <[facility] Last Filed: 04/24/24 07:10> Physical Exam 2 Vital Signs: Vital Signs: Last Vital Signs Temp 97.5 F 04/23/24 23:28 Pulse 60 04/23/24 23:28 Resp 20 04/24/24 04:00 BP 153/92 H 04/23/24 23:28 Pulse Ox 97 04/23/24 23:28 O2 Del Method Room Air 04/23/24 23:28 O2 Flow Rate 2 04/22/24 19:36 BMI result Body Mass Index 20.0 <[facility] Last Filed: 04/24/24 07:10> Const: General: cooperative, healthy appearing and comfortable <[facility] Filed: 04/24/24 07:10> Orientation/consciousness: patient oriented x3 <[facility] Filed: 04/24/24 07:10> Chest: Chest palpation & inspection: normal inspection of the chest < [facility] Last Filed: 04/24/24 07:10> Resp: Effort & Inspection: normal respiratory effort and able to speak in complete sentences <[facility] Last Filed: 04/24/24 07:10> Cardio: Rate: regular rate <[facility] Last Filed: 04/24/24 07:10> Rhythm: regular rhythm <[facility] Filed: 04/24/24 07:10> GI: Inspection: Yes incision (steri-strips intact, no bleeding or drainage from incision sites) <[facility] Filed: 04/24/24 07:10> Palpation (GI): Soft to palpation and Tenderness to palpation present (GI) (appropriate, complains of increased tenderness in RLQ and suprapubic) < [facility] Filed: 04/24/24 07:10> Neuro: General: patient oriented x3 <[facility] Filed: 04/24/24 07:10> Objective Data Active Medications Albuterol Sulfate (Albuterol Sulfate 90 Mcg 8 Gm Inhaler) 2 puff INHALE RQ4H PRN PRN Reason: sob Benzonatate (Benzonatate 100 Mg Capsule) 100 mg PO TID PRN PRN Reason: Cough Erythromycin (Erythromycin Base 0.5% Oph Oin 1 Gm Tube) 1 cm EYE-RIGHT QID [facility] Last Admin: 04/23/24 21:22 Dose: 1 cm Documented By: SUSHMA Heparin Sodium (Porcine) (Heparin Sodium,Porcine 5,000 Unit/Ml Vial) 5,000 unit SUBCUT Q12H [facility] Last Admin: 04/24/24 01:15 Dose: 5,000 unit Documented By: SUSHMA Ceftriaxone Sodium 1 gm/ (Sodium Chloride) 50 mls @ 100 mls/hr IV Q24H [facility] Last Infusion: 04/23/24 23:32 Dose: Infused Documented By: SUSHMA Metronidazole (Flagyl) 500 mg in 100 mls @ 100 mls/hr IV Q8H [facility] Last Admin: 04/24/24 06:41 Dose: 100 mls/hr Documented By: SUSHMA Doxycycline Hyclate 100 mg/ (Sodium Chloride) 250 mls @ 166.67 mls/hr IV Q12H [facility] Last Infusion: 04/24/24 01:00 Dose: Infused Documented By: SUSHMA Lactated Ringer's (Lr) 1,000 mls @ 50 mls/hr IVCONT .Q20H [facility] Last Infusion: 04/23/24 21:26 Dose: 0 mls/hr Documented By: SUSHMA Acetaminophen (Ofirmev) 1,000 mg in 100 mls @ 400 mls/hr IV Q6H [facility] Last Admin: 04/24/24 03:32 Dose: Not Given Documented By: SUSHMA Non-Admin Reason: exceeded allowed daily dose Melatonin (Melatonin 3 Mg Tablet) 6 mg PO BEDTIME PRN PRN Reason: Insomnia Last Admin: 04/24/24 01:16 Dose: 6 mg Documented By: SUSHMA Metoprolol Tartrate (Metoprolol Tartrate 12.5 Mg Halftab) 12.5 mg PO BID [facility]; Protocol Last Admin: 04/23/24 21:24 Dose: 12.5 mg Documented By: SUSHMA Mirabegron (Mirabegron 50 Mg Tab.Er.24h) 50 mg PO DAILY [facility] Last Admin: 04/23/24 08:41 Dose: 50 mg Documented By: FLIP Morphine Sulfate (Morphine Sulfate 4 Mg/Ml Cartridge) 4 mg IVPUSH Q4H PRN; Protocol PRN Reason: Pain, Severe (Pain Scale 7-10) Last Admin: 04/24/24 06:46 Dose: 4 mg Documented By: SUSHMA Ondansetron HCl (Ondansetron Hcl 4 Mg/2 Ml Vial) 4 mg IVPUSH QID PRN PRN Reason: Nausea Oxycodone HCl (Oxycodone Hcl Immed Release 5 Mg Tablet) 5 mg PO Q4H PRN PRN Reason: Pain, Moderate(Pain Scale 4-6) Last Admin: 04/24/24 03:19 Dose: 5 mg Documented By: SUSHMA Prochlorperazine Edisylate (Prochlorperazine Edisylate 10 Mg/2 Ml Vial) 5 mg IVPUSH Q6H PRN PRN Reason: Nausea and Vomiting Last Admin: 04/20/24 16:18 Dose: 5 mg Documented By: STEVE Sodium Chloride (0.9 % Sodium Chloride Flush 3 Ml Syringe) 3 ml IVFLUSH [facility] Last Admin: 04/24/24 00:41 Dose: Not Given Documented By: SUSHMA Non-Admin Reason: IV Running Valsartan (Valsartan 40 Mg Tablet) 20 mg PO BID [facility]; Protocol Last Admin: 04/23/24 21:24 Dose: 20 mg Documented By: SUSHMA Vitamin D (Cholecalciferol (Vitamin D3) 25 Mcg Tablet) 25 mcg PO DAILY [facility] Last Admin: 04/23/24 08:42 Dose: 25 mcg Documented By: FLIP <Jeanne [place] - Last Filed: 04/24/24 07:10> Labs CBC & Chem 7: 04/24/24 05:23 04/24/24 05:23 <[facility] - Last Filed: 04/24/24 07:10> Labs: Laboratory Results - last 24 hr 04/23/24 04/24/24 05:35 05:23 MCV 100.0 H 100.0 H MCH 34.3 H 35.2 H MCHC 34.3 35.2 H RDW 12.9 12.8 Plt Count 464 H 468 H MPV 9.3 L 9.2 L Immature Gran % (Auto) 0.7 H 0.7 H Neut % (Auto) 67.7 59.1 Lymph % (Auto) 22.4 28.1 [place] % (Auto) 7.8 7.0 Eos % (Auto) 1.1 4.5 H Baso % (Auto) 0.3 0.6 Lymph # (Auto) 3.4 3.2 [place] # (Auto) 1.2 0.8 Eos # (Auto) 0.2 0.5 H Baso # (Auto) 0.1 0.1 Abs Immat Gran (auto) 0.11 H 0.08 H Absolute Neuts (auto) 10.2 H 6.7 Absolute Nucleated RBC 0.000 0.000 Nucleated RBC % (auto) 0.0 0.0 Anion Gap 11 L 11 L Estim Creat Clear Calc 98.6 112.6 Estimated GFR > 60 > 60 Fasting Glucose 74 83 Calcium 9.1 8.5 D Total Bilirubin 0.3 0.3 AST 20 18 ALT 13 12 Alkaline Phosphatase 41 36 L Total Protein 5.7 L 5.9 L Albumin 3.0 L 3.1 L <[facility] - Last Filed: 04/24/24 07:10> Microbiology Microbiology Results: Microbiology 04/21/24 11:05 Gram Stain - Final Abscess Intra-abdominal Routine Culture - Preliminary Culture in progress. <[facility] - Last Filed: 04/24/24 07:10> Procedures Date of Service Date of Service: 04/24/24 <[facility] - Last Filed: 04/24/24 07:10> 04/24/24 <Yas Dick PA-C - Last Filed: 04/24/24 07:46> 04/24/24 <Tony Garnett MD - Last Filed: 04/24/24 08:16> Progress Note: A&P Assessment and plan (1) S/P laparoscopic colectomy: Status: Acute <Jeanne [place] - Last Filed: 04/24/24 07:10> (2) Diverticulitis large intestine: Status: Acute <[facility] Last Filed: 04/24/24 07:10> Assessment and Plan: Patient is POD #3 s/p hand assisted laparoscopic sigmoid resection and abscess drainage. Tolerating regular diet without nausea and continues to have BMs. Appropriate post operative tenderness, abdominal distention improving. No bleeding or drainage from incision sites. Complaining of pain with urination and increased frequency. Can consider ordering UA. UTI would be surprising given she is currently receiving ceftriaxone, doxycycline and metronidazole. Continue ambulation, icing of incision and incentive spirometry. IV fluids were discontinued yesterday. WBC downtrending and Hgb/Hct is stable. <[facility] Last Filed: 04/24/24 07:10> Patient is POD #3 s/p hand assisted laparoscopic sigmoid resection and abscess drainage. Tolerating regular diet without nausea and continues to have BMs. Appropriate post operative tenderness, abdominal distention improving. No bleeding or drainage from incision sites. Complaining of pain with urination and increased frequency. Can consider ordering UA. UTI would be surprising given she is currently receiving ceftriaxone, doxycycline and metronidazole. Continue ambulation, icing of incision and incentive spirometry. IV fluids were discontinued yesterday. WBC downtrending and Hgb/Hct is stable. POD #3 s/p hand assisted laparoscopic sigmoid resection and abscess drainage. Doing well, tolerating solid diet and continues to pass flatus. VSS. Abd exam is benign with clean incision, she does have a fair amount of ecchymosis of right and left lower abdomen and fullness of right side, ?hematoma secondary to surgery vs heparin injections, H/H stable. She does report some burning and urinary frequency but this would be covered by the ceftriaxone and doxy. Encouraged transition to oral analgesics. Stable for dc from surgical standpoint when comfortable on PO analgesics. <Yas Dick PA-C - Last Filed: 04/24/24 07:46> Time Spent With Patient Time: Total time managing care of this patient today ____ minutes. <[facility] Last Filed: 04/24/24 07:10> Quality Stroke Does the patient have a stroke diagnosis?: No <[facility] Filed: 04/24/24 07:10> VTE Prior VTE?: No <[facility] Filed: 04/24/24 07:10> VTE Risk Level:: Medical - moderate - high <[facility] Filed: 04/24/24 07:10> VTE Device Contraindication: Treatment Not Indicated <[facility] Filed: 04/24/24 07:10> VTE Drug Contraindication: N/A - Med Ordered <[facility] Filed: 04/24/24 07:10>
[2024-04-24] MEDS: Mirabegron 50 MG TAB.ER.24H PO (07:56)
[2024-04-24] MEDS: Erythromycin Base 0.5% Oph Oin 1 GM TUBE 1 CM EYE-RIGHT ×2 (07:56→20:58)
[2024-04-24] MEDS: Valsartan 40 MG TABLET 20 MG PO ×2 (07:56→20:58)
[2024-04-24] MEDS: Metoprolol Tartrate 12.5 MG HALFTAB PO ×2 (07:56→20:58)
[2024-04-24] MEDS: Cholecalciferol (Vitamin D3) 25 MCG TABLET PO (07:56)
[2024-04-24] MEDS: Acetaminophen 1,000 MG/100 ML PIGGYBACK 400 MG IV ×2 (09:43→16:55)
[2024-04-24 10:25] LABS: Appearance Urine Clear; Color Urine Yellow; Glucose Urine UA Negative (Negative); Leukocyte Esterase Urine Negative (Negative); Nitrite Urine Negative (Negative); PH 7.5 (5.0-9.0); Urine Blood Negative (Negative); Urine Ketones Negative (Negative); Urine Protein Negative (Neg-Trace)
[2024-04-24 10:39] LABS: Bacteria Urine None Seen (None Seen); Hyaline Casts Urine 0-2 /LPF (0-2); RBC Urine 0-2 /HPF (0-2); Squamous Epithelial Cell Urine 0-2 /HPF (0-2); WBC Urine 0-5 /HPF (0-5)
[2024-04-24] MEDS: Doxycycline Hyclate 100 MG in 0.9 % Sodium Chloride 250 ML 166.67 MG IV ×2 (11:25→22:49)
[2024-04-24] MEDS: 0.9 % Sodium Chloride Flush 3 ML SYRINGE IVFLUSH ×2 (13:29→22:50)
--- NOTE | 2024-04-24 13:42 | P.PNIM_ITS ---
Subjective Subjective Date of Service: 04/24/24 Interval History: Slowly improving. Advancing diet Review of Systems Denies chest pain Denies shortness of breath Denies nausea vomiting diarrhea Admits to mild abdominal discomfort that is improving Physical Exam 2 Vital Signs: Vital Signs: Last Vital Signs Temp 97.0 F 04/24/24 12:00 Pulse 65 04/24/24 12:00 Resp 18 04/24/24 12:00 BP 137/80 04/24/24 12:00 Pulse Ox 95 04/24/24 12:00 O2 Del Method Room Air 04/24/24 12:00 O2 Flow Rate 2 04/22/24 19:36 BMI result Body Mass Index 20.0 Const: Other: Awake alert no acute distress Resp: Other: Clear to auscultation bilaterally no rales rhonchi or wheezes Cardio: Other: No S4; positive S1-S2; no S3 murmurs rubs or gallops GI: Other: Soft quiet bowel sounds. Diffusely tender to soft palpation Neuro: Other: Cranial nerves 2-12 grossly intact as tested. Sensation is intact bilaterally. Motor is 5/5 Extrem: Other: No edema bilaterally Objective Data Active Medications Albuterol Sulfate (Albuterol Sulfate 90 Mcg 8 Gm Inhaler) 2 puff INHALE RQ4H PRN PRN Reason: sob Benzonatate (Benzonatate 100 Mg Capsule) 100 mg PO TID PRN PRN Reason: Cough Erythromycin (Erythromycin Base 0.5% Oph Oin 1 Gm Tube) 1 cm EYE-RIGHT QID [facility] Last Admin: 04/24/24 12:50 Dose: Not Given Documented By: COTEMA Non-Admin Reason: Patient Refused Heparin Sodium (Porcine) (Heparin Sodium,Porcine 5,000 Unit/Ml Vial) 5,000 unit SUBCUT Q12H [facility] Last Admin: 04/24/24 13:33 Dose: 5,000 unit Documented By: COTEMA Ceftriaxone Sodium 1 gm/ (Sodium Chloride) 50 mls @ 100 mls/hr IV Q24H [facility] Last Infusion: 04/23/24 23:32 Dose: Infused Documented By: LYSZ Metronidazole (Flagyl) 500 mg in 100 mls @ 100 mls/hr IV Q8H [facility] Last Admin: 04/24/24 13:31 Dose: 100 mls/hr Documented By: COTEMA Doxycycline Hyclate 100 mg/ (Sodium Chloride) 250 mls @ 166.67 mls/hr IV Q12H [facility] Last Infusion: 04/24/24 13:03 Dose: Infused Documented By: COTEMA Acetaminophen (Ofirmev) 1,000 mg in 100 mls @ 400 mls/hr IV Q6H PRN PRN Reason: Pain, Mild (Pain Scale 1-3) Last Infusion: 04/24/24 10:04 Dose: Infused Documented By: BLANCA Melatonin (Melatonin 3 Mg Tablet) 6 mg PO BEDTIME PRN PRN Reason: Insomnia Last Admin: 04/24/24 01:16 Dose: 6 mg Documented By: LYSJairo Metoprolol Tartrate (Metoprolol Tartrate 12.5 Mg Halftab) 12.5 mg PO BID [facility]; Protocol Last Admin: 04/24/24 07:56 Dose: 12.5 mg Documented By: BLANCA Mirabegron (Mirabegron 50 Mg Tab.Er.24h) 50 mg PO DAILY [facility] Last Admin: 04/24/24 07:56 Dose: 50 mg Documented By: BLANCA Morphine Sulfate (Morphine Sulfate 4 Mg/Ml Cartridge) 4 mg IVPUSH Q4H PRN; Protocol PRN Reason: Pain, Severe (Pain Scale 7-10) Last Admin: 04/24/24 11:26 Dose: 4 mg Documented By: BLANCA Ondansetron HCl (Ondansetron Hcl 4 Mg/2 Ml Vial) 4 mg IVPUSH QID PRN PRN Reason: Nausea Oxycodone HCl (Oxycodone Hcl Immed Release 5 Mg Tablet) 5 mg PO Q4H PRN PRN Reason: Pain, Moderate(Pain Scale 4-6) Last Admin: 04/24/24 13:32 Dose: 5 mg Documented By: BLANCA Prochlorperazine Edisylate (Prochlorperazine Edisylate 10 Mg/2 Ml Vial) 5 mg IVPUSH Q6H PRN PRN Reason: Nausea and Vomiting Last Admin: 04/20/24 16:18 Dose: 5 mg Documented By: RABIANM Sodium Chloride (0.9 % Sodium Chloride Flush 3 Ml Syringe) [facility] Last Admin: 04/24/24 13:29 Dose: 3 ml Documented By: BLANCA Valsartan (Valsartan 40 Mg Tablet) 20 mg PO BID [facility]; Protocol Last Admin: 04/24/24 07:56 Dose: 20 mg Documented By: BLANCA Vitamin D (Cholecalciferol (Vitamin D3) 25 Mcg Tablet) 25 mcg PO DAILY [facility] Last Admin: 04/24/24 07:56 Dose: 25 mcg Documented By: BLANCA Labs 04/24/24 05:23 04/24/24 05:23 Labs: Laboratory Results - last 24 hr 04/24/24 04/24/24 05:23 09:54 MCV 100.0 H MCH 35.2 H MCHC 35.2 H RDW 12.8 Plt Count 468 H MPV 9.2 L Immature Gran % (Auto) 0.7 H Neut % (Auto) 59.1 Lymph % (Auto) 28.1 [place] % (Auto) 7.0 Eos % (Auto) 4.5 H Baso % (Auto) 0.6 Lymph # (Auto) 3.2 [place] # (Auto) 0.8 Eos # (Auto) 0.5 H Baso # (Auto) 0.1 Abs Immat Gran (auto) 0.08 H Absolute Neuts (auto) 6.7 Absolute Nucleated RBC 0.000 Nucleated RBC % (auto) 0.0 Anion Gap 11 L Estim Creat Clear Calc 112.6 Estimated GFR > 60 Fasting Glucose 83 Calcium 8.5 D Total Bilirubin 0.3 AST 18 ALT 12 Alkaline Phosphatase 36 L Total Protein 5.9 L Albumin 3.1 L Urine Color Yellow Urine Appearance Clear Urine pH 7.5 Ur Specific [place] 1.010 Urine Protein Negative Urine Glucose (UA) Negative Urine Ketones Negative Urine Blood Negative Urine Nitrite Negative Ur Leukocyte Esterase Negative Urine RBC 0-2 Urine WBC 0-5 Ur Squamous Epith Cells 0-2 Urine Bacteria None Seen Hyaline Casts 0-2 Microbiology Microbiology Results: Microbiology 04/21/24 11:05 Gram Stain - Final Abscess Intra-abdominal Routine Culture - Preliminary Yeast Assessment and Plan (1) S/P laparoscopic colectomy: Status: Acute Plan Cathie Arguello is a 58 years old woman admitted with: 1.Acute Hypoxic respiratory failure, suspected underlying COPD/acute bronchitis/no CHF -resolved -further treatment as per surgery 2.Acute diverticulitis... Status post colectomy -IV ceftriaxone, doxycycline and metronidazole till clinical improvement in 48- 72 hours then he recommend doxycycline 100 mg b.i.d. and Flagyl 500 mg b.i.d. x 14 days (as per surgery) -status post colectomy -as per surgery 3. Hypokalemia -replete -follow renals/divalents Heparin Full Patient will need continued inpatient hospitalization for IV antibiotics for acute diverticulitis and abscess ; further plans as per surgery Quality Stroke Does the patient have a stroke diagnosis?: No VTE Prior VTE?: No VTE Risk Level:: Medical - moderate - high VTE Device Contraindication: Treatment Not Indicated VTE Drug Contraindication: N/A - Med Ordered
[2024-04-24] MEDS: cefTRIAXone sodium 1 GM in 0.9 % Sodium Chloride 50 ML IV (22:11)
[2024-04-25] MEDS: Melatonin 3 MG TABLET 6 MG PO (01:04)
[2024-04-25] MEDS: oxyCODONE HCl Immed Release 5 MG TABLET PO (01:04)
[2024-04-25] MEDS: Heparin Sodium,Porcine 5,000 UNIT/ML VIAL 5000 UNIT SUBCUT (01:05)
[2024-04-25] MEDS: Morphine Sulfate 4 MG/ML CARTRIDGE IVPUSH ×2 (01:06→06:19)
[2024-04-25] MEDS: metroNIDAZOLE/NS 500 MG/100 ML PIGGYBACK 100 MG IV (06:08)
[2024-04-25 06:32] LABS: MANUAL DIFF FLAG NO
[2024-04-25 06:38] LABS: Basophils Absolute Auto 0.1 X10*3/uL (0.0-0.2); Basophils Percent Auto 0.6 % (0-2); Eosinophils Absolute Auto 0.5 X10*3/uL (0.0-0.4); Eosinophils Percent Auto 5.4 % (0-4); Hematocrit 33.6 % (37.0-47.0); Hemoglobin 11.7 g/dl (12.0-16.0); Imm Gran Abs Auto 0.09 X10*3/uL (0.00-0.03); Lymphocytes Absolute Auto 2.6 X10*3/uL (1.2-4.9); Lymphocytes Percent Auto 28.4 % (20-40); Mean Corpuscular HGB Conc 34.8 g/dl (31.0-35.0); Mean Corpuscular Hemoglobin 34.5 pg (27.0-33.0); Mean Corpuscular Volume 99.1 fL (80.0-98.0); Mean Platelet Volume 9.1 fL (9.4-12.3); Monocytes Absolute Auto 0.7 X10*3/uL (0.1-1.2); Monocytes Percent Auto 7.5 % (2-11); Neutrophils Absolute Auto 5.3 x10*3/uL (2.0-8.3); Neutrophils Percent Auto 57.1 % (45-73); Platelet Count 500 X10*3/uL (160-400); Red Blood Count 3.39 X10*6/uL (4.20-5.50); Red Cell Distribution Width 12.7 % (11.0-16.0); White Blood Count 9.3 X10*3/uL (4.8-10.8)
[2024-04-25 06:55] LABS: Alanine Aminotransferase 11 U/L (0-31); Albumin Level 3.3 g/dL (3.5-5.0); Alkaline Phosphatase 43 U/L (39-117); Anion Gap 14 (12-20); Aspartate Amino Transferase 13 U/L (5-31); Bilirubin Total 0.4 mg/dL (0.0-1.0); Blood Urea Nitrogen 3 mg/dL (9-16); Calcium 9.2 mg/dL (8.4-10.2); Carbon Dioxide 24 mmol/L (22-29); Chloride 104 mmol/L (96-108); Creatinine Clr Calc Pharmacy 105.1; Estimated Glomerular Filt Rate > 60; Glucose Fasting 89 mg/dL (60-99); Potassium 3.3 mmol/L (3.3-5.1); Sodium 139 mmol/L (135-145); Total Protein 6.2 g/dL (6.5-8.0)
[2024-04-25 07:15] VITALS: BP 137/87; PULSE 76; RESP 20; TEMP 36.7; O2SAT 93
--- NOTE | 2024-04-25 07:27 | PM.PNGS ---
Subjective Subjective Date of Service: 04/25/24 <Yas Dick PA-C - Last Filed: 04/25/24 07:31> 04/25/24 <Tony Garnett MD - Last Filed: 04/25/24 08:40> Interval history: C/o pain at incision and right lower abdomen. Overall feels better but still stating she needs IV morphine and oxycodone for adequate pain control. Passing flatus, BMs becoming more solid. Tolerating solid diet. <Yas Dick PA-C - Last Filed: 04/25/24 07:31> Physical Exam Vital Signs: Vital Signs: Last Vital Signs Temp 98.1 F 04/25/24 07:15 Pulse 76 04/25/24 07:15 Resp 20 04/25/24 07:15 BP 137/87 04/25/24 07:15 Pulse Ox 93 04/25/24 07:15 O2 Del Method Room Air 04/25/24 07:15 O2 Flow Rate 2 04/22/24 19:36 BMI result Body Mass Index 20.0 <Yas Dick PA-C - Last Filed: 04/25/24 07:31> Const: General: comfortable, no acute distress and alert <RUPERTO Bhagat Last Filed: 04/25/24 07:31> Orientation/consciousness: patient oriented x3 <Yas Dick PA-C - Last Filed: 04/25/24 07:31> Resp: Effort & Inspection: normal respiratory effort <Yas Dick PA-C - Last Filed: 04/25/24 07:31> GI: Other: ecchymosis lateral to midline incision extending into RLQ and right flank, mild tenderness, no significant fullness <Yas Dick PA-C - Last Filed: 04/25/24 07:31> Inspection: Yes distended (mildly ) and Yes incision (clean) <RUPERTO Bhagat Last Filed: 04/25/24 07:31> Palpation (GI): Soft to palpation, Tenderness to palpation present (GI) and no guarding <RUPERTO Bhagat Last Filed: 04/25/24 07:31> Skin: General skin exam: no rashes or lesions noted <Yas Dick PA-C - Last Filed: 04/25/24 07:31> Neuro: General: patient oriented x3 and moves all extremities <Yas Dick PA-C - Last Filed: 04/25/24 07:31> Objective Data Active Medications Albuterol Sulfate (Albuterol Sulfate 90 Mcg 8 Gm Inhaler) 2 puff INHALE RQ4H PRN PRN Reason: sob Benzonatate (Benzonatate 100 Mg Capsule) 100 mg PO TID PRN PRN Reason: Cough Erythromycin (Erythromycin Base 0.5% Oph Oin 1 Gm Tube) 1 cm EYE-RIGHT QID [facility] Last Admin: 04/24/24 20:58 Dose: 1 cm Documented By: SUSHMA Heparin Sodium (Porcine) (Heparin Sodium,Porcine 5,000 Unit/Ml Vial) 5,000 unit SUBCUT Q12H [facility] Last Admin: 04/25/24 01:05 Dose: 5,000 unit Documented By: SUSHMA Ceftriaxone Sodium 1 gm/ (Sodium Chloride) 50 mls @ 100 mls/hr IV Q24H [facility] Last Infusion: 04/24/24 22:48 Dose: Infused Documented By: SUSHMA Metronidazole (Flagyl) 500 mg in 100 mls @ 100 mls/hr IV Q8H [facility] Last Admin: 04/25/24 06:08 Dose: 100 mls/hr Documented By: SUSHMA Doxycycline Hyclate 100 mg/ (Sodium Chloride) 250 mls @ 166.67 mls/hr IV Q12H [facility] Last Infusion: 04/25/24 00:42 Dose: Infused Documented By: SUSHMA Acetaminophen (Ofirmev) 1,000 mg in 100 mls @ 400 mls/hr IV Q6H PRN PRN Reason: Pain, Mild (Pain Scale 1-3) Last Infusion: 04/24/24 17:19 Dose: Infused Documented By: COTEMA Melatonin (Melatonin 3 Mg Tablet) 6 mg PO BEDTIME PRN PRN Reason: Insomnia Last Admin: 04/25/24 01:04 Dose: 6 mg Documented By: SUSHMA Metoprolol Tartrate (Metoprolol Tartrate 12.5 Mg Halftab) 12.5 mg PO BID [facility]; Protocol Last Admin: 04/24/24 20:58 Dose: 12.5 mg Documented By: SUSHMA Mirabegron (Mirabegron 50 Mg Tab.Er.24h) 50 mg PO DAILY [facility] Last Admin: 04/24/24 07:56 Dose: 50 mg Documented By: BLANCA Morphine Sulfate (Morphine Sulfate 4 Mg/Ml Cartridge) 4 mg IVPUSH Q4H PRN; Protocol PRN Reason: Pain, Severe (Pain Scale 7-10) Last Admin: 04/25/24 06:19 Dose: 4 mg Documented By: SUSHMA Ondansetron HCl (Ondansetron Hcl 4 Mg/2 Ml Vial) 4 mg IVPUSH QID PRN PRN Reason: Nausea Oxycodone HCl (Oxycodone Hcl Immed Release 5 Mg Tablet) 5 mg PO Q4H PRN PRN Reason: Pain, Moderate(Pain Scale 4-6) Last Admin: 04/25/24 01:04 Dose: 5 mg Documented By: SUSHMA Prochlorperazine Edisylate (Prochlorperazine Edisylate 10 Mg/2 Ml Vial) 5 mg IVPUSH Q6H PRN PRN Reason: Nausea and Vomiting Last Admin: 04/20/24 16:18 Dose: 5 mg Documented By: STEVE Sodium Chloride (0.9 % Sodium Chloride Flush 3 Ml Syringe) [facility] Last Admin: 04/24/24 22:50 Dose: 3 ml Documented By: SUSHMA Valsartan (Valsartan 40 Mg Tablet) 20 mg PO BID [facility]; Protocol Last Admin: 04/24/24 20:58 Dose: 20 mg Documented By: SUSHMA Vitamin D (Cholecalciferol (Vitamin D3) 25 Mcg Tablet) 25 mcg PO DAILY [facility] Last Admin: 04/24/24 07:56 Dose: 25 mcg Documented By: BLANCA <Yas Dick PA-C - Last Filed: 04/25/24 07:31> Labs CBC & Chem 7: 04/25/24 05:36 04/25/24 05:36 <Yas Dick PA-C - Last Filed: 04/25/24 07:31> Labs: Laboratory Results - last 24 hr 04/24/24 04/25/24 09:54 05:36 MCV 99.1 H MCH 34.5 H MCHC 34.8 RDW 12.7 Plt Count 500 H MPV 9.1 L Immature Gran % (Auto) 1.0 H Neut % (Auto) 57.1 Lymph % (Auto) 28.4 [place] % (Auto) 7.5 Eos % (Auto) 5.4 H Baso % (Auto) 0.6 Lymph # (Auto) 2.6 [place] # (Auto) 0.7 Eos # (Auto) 0.5 H Baso # (Auto) 0.1 Abs Immat Gran (auto) 0.09 H Absolute Neuts (auto) 5.3 Absolute Nucleated RBC 0.000 Nucleated RBC % (auto) 0.0 Anion Gap 14 Estim Creat Clear Calc 105.1 Estimated GFR > 60 Fasting Glucose 89 Calcium 9.2 D Total Bilirubin 0.4 AST 13 ALT 11 Alkaline Phosphatase 43 Total Protein 6.2 L Albumin 3.3 L Urine Color Yellow Urine Appearance Clear Urine pH 7.5 Ur Specific [place] 1.010 Urine Protein Negative Urine Glucose (UA) Negative Urine Ketones Negative Urine Blood Negative Urine Nitrite Negative Ur Leukocyte Esterase Negative Urine RBC 0-2 Urine WBC 0-5 Ur Squamous Epith Cells 0-2 Urine Bacteria None Seen Hyaline Casts 0-2 <Yas Dick PA-C - Last Filed: 04/25/24 07:31> Microbiology Microbiology Results: Microbiology 04/21/24 11:05 Gram Stain - Final Abscess Intra-abdominal Routine Culture - Preliminary Yeast <Yas Dick PA-C - Last Filed: 04/25/24 07:31> Procedures Date of Service Date of Service: 04/25/24 <Yas Dick PA-C - Last Filed: 04/25/24 07:31> 04/25/24 <Tony Garnett MD - Last Filed: 04/25/24 08:40> Progress Note: A&P Assessment and plan (1) S/P laparoscopic colectomy: Status: Acute <Yas Dick PA-C - Last Filed: 04/25/24 07:31> (2) Diverticulitis large intestine: Status: Acute <Yas Dick PA-C - Last Filed: 04/25/24 07:31> Assessment and Plan: POD #4 s/p hand assisted laparoscopic sigmoid resection and abscess drainage. Doing well, tolerating solid diet and continues to pass flatus now with more solid BMs. VSS. Abd exam is benign, clean incisions, does have moderate ecchymosis of RLQ/right flank but H/H has been stable for the past few days. Encouraged transition to oral analgesics. Stable for dc from surgical standpoint when comfortable on PO analgesics, patient reports she is not ready today. <Yas Dick PA-C - Last Filed: 04/25/24 07:31> POD #4 s/p hand assisted laparoscopic sigmoid resection and abscess drainage. Doing well, tolerating solid diet and continues to pass flatus now with more solid BMs. VSS. Abd exam is benign, clean incisions, does have moderate ecchymosis of RLQ/right flank but H/H has been stable for the past few days. Encouraged transition to oral analgesics. Stable for dc from surgical standpoint when comfortable on PO analgesics, patient reports she is not ready today. Patient is much improved, reports a solid bowel movement yesterday, no bleeding. Does know bruising in the abdominal wall bilaterally. Patient is still taking IV pain medication. I will stop the IV pain meds and switched only to p.o. in preparation for discharge to home. We will stop heparin due to the increased ecchymosis in her abdominal wall. Encouraged out of bed and ambulation. If patient is tolerating oral pain medication, will be ready for discharge possibly tomorrow. <Tony Garnett MD - Last Filed: 04/25/24 08:40> Time Spent With Patient Time: Total time managing care of this patient today ____ minutes. <Yas Dick PA-C - Last Filed: 04/25/24 07:31> Quality Stroke Does the patient have a stroke diagnosis?: No <Yas Dick PA-C - Last Filed: 04/25/24 07:31> VTE Prior VTE?: No <Yas Dick PA-C - Last Filed: 04/25/24 07:31> VTE Risk Level:: Medical - moderate - high <Yas Dick PA-C - Last Filed: 04/25/24 07:31> VTE Device Contraindication: Treatment Not Indicated <Yas Dick PA-C - Last Filed: 04/25/24 07:31> VTE Drug Contraindication: N/A - Med Ordered <Yas Dick PA-C - Last Filed: 04/25/24 07:31>
[2024-04-25] MEDS: Metoprolol Tartrate 12.5 MG HALFTAB PO ×2 (08:52→21:33)
[2024-04-25] MEDS: 0.9 % Sodium Chloride Flush 3 ML SYRINGE IVFLUSH ×3 (08:52→21:31)
[2024-04-25] MEDS: Valsartan 40 MG TABLET 20 MG PO ×2 (08:52→21:33)
[2024-04-25] MEDS: Cholecalciferol (Vitamin D3) 25 MCG TABLET PO (08:53)
[2024-04-25] MEDS: Mirabegron 50 MG TAB.ER.24H PO (08:53)
[2024-04-25] MEDS: oxyCODONE HCl Immed Release 5 MG TABLET 10 MG PO ×4 (09:00→21:32)
[2024-04-25 12:00] VITALS: BP 127/76; PULSE 79; RESP 20; TEMP 36.6; O2SAT 92
--- NOTE | 2024-04-25 12:06 | P.PNIM_ITS ---
Subjective Subjective Date of Service: 04/25/24 Interval History: status post hand assisted laparoscopic sigmoid resection due to recurrent diverticulitis. Patient complaining of abdominal pain worse with movement, tolerating diet with no nausea, no vomiting had a bowel movement without pain, denies fever, no chills, no other acute issues overnight. Review of Systems All other system reviewed and are negative. Physical Exam 2 Vital Signs: Vital Signs: Last Vital Signs Temp 98.1 F 04/25/24 07:15 Pulse 76 04/25/24 07:15 Resp 20 04/25/24 07:15 BP 137/87 04/25/24 07:15 Pulse Ox 93 04/25/24 07:15 O2 Del Method Room Air 04/25/24 07:15 O2 Flow Rate 2 04/22/24 19:36 BMI result Body Mass Index 20.0 Const: Other: General awake alert x3, in no acute distress. Anicteric sclera Neck no JVD. CVS regular rate rhythm, Respiratory lungs , no respiratory distress, no wheeze, no rhonchi. Gastrointestinal abdomen diffuse ecchymosis , midline incision, tender to palpation, bowel sounds audible, no guarding , no rigidity. Extremities no edema. Neuro non focal Skin no rash Psych appropriate affect Objective Data Active Medications Albuterol Sulfate (Albuterol Sulfate 90 Mcg 8 Gm Inhaler) 2 puff INHALE RQ4H PRN PRN Reason: sob Benzonatate (Benzonatate 100 Mg Capsule) 100 mg PO TID PRN PRN Reason: Cough Erythromycin (Erythromycin Base 0.5% Oph Oin 1 Gm Tube) 1 cm EYE-RIGHT QID [facility] Last Admin: 04/25/24 08:53 Dose: Not Given Documented By: SHADI Non-Admin Reason: Patient Refused Ceftriaxone Sodium 1 gm/ (Sodium Chloride) 50 mls @ 100 mls/hr IV Q24H [facility] Last Infusion: 04/24/24 22:48 Dose: Infused Documented By: SUSHMA Metronidazole (Flagyl) 500 mg in 100 mls @ 100 mls/hr IV Q8H [facility] Last Infusion: 04/25/24 08:59 Dose: Infused Documented By: SHADI Doxycycline Hyclate 100 mg/ (Sodium Chloride) 250 mls @ 166.67 mls/hr IV Q12H [facility] Last Infusion: 04/25/24 00:42 Dose: Infused Documented By: SUSHMA Melatonin (Melatonin 3 Mg Tablet) 6 mg PO BEDTIME PRN PRN Reason: Insomnia Last Admin: 04/25/24 01:04 Dose: 6 mg Documented By: SUSHMA Metoprolol Tartrate (Metoprolol Tartrate 12.5 Mg Halftab) 12.5 mg PO BID [facility]; Protocol Last Admin: 04/25/24 08:52 Dose: 12.5 mg Documented By: SHADI Mirabegron (Mirabegron 50 Mg Tab.Er.24h) 50 mg PO DAILY [facility] Last Admin: 04/25/24 08:53 Dose: 50 mg Documented By: SHADI Ondansetron HCl (Ondansetron Hcl 4 Mg/2 Ml Vial) 4 mg IVPUSH QID PRN PRN Reason: Nausea Oxycodone HCl (Oxycodone Hcl Immed Release 5 Mg Tablet) 5 mg PO Q4H PRN PRN Reason: Pain, Moderate(Pain Scale 4-6) Last Admin: 04/25/24 01:04 Dose: 5 mg Documented By: SUSHMA Oxycodone HCl (Oxycodone Hcl Immed Release 5 Mg Tablet) 10 mg PO Q4H PRN PRN Reason: Pain, Severe (Pain Scale 7-10) Last Admin: 04/25/24 09:00 Dose: 10 mg Documented By: SHADI Prochlorperazine Edisylate (Prochlorperazine Edisylate 10 Mg/2 Ml Vial) 5 mg IVPUSH Q6H PRN PRN Reason: Nausea and Vomiting Last Admin: 04/20/24 16:18 Dose: 5 mg Documented By: STEVE Sodium Chloride (0.9 % Sodium Chloride Flush 3 Ml Syringe) 3 ml IVFLUSH [facility] Last Admin: 04/25/24 08:52 Dose: 3 ml Documented By: SHADI Valsartan (Valsartan 40 Mg Tablet) 20 mg PO BID [facility]; Protocol Last Admin: 04/25/24 08:52 Dose: 20 mg Documented By: SHADI Vitamin D (Cholecalciferol (Vitamin D3) 25 Mcg Tablet) 25 mcg PO DAILY [facility] Last Admin: 04/25/24 08:53 Dose: 25 mcg Documented By: SHADI Labs 04/25/24 05:36 04/25/24 05:36 Labs: Laboratory Results - last 24 hr 04/25/24 05:36 MCV 99.1 H MCH 34.5 H MCHC 34.8 RDW 12.7 Plt Count 500 H MPV 9.1 L Immature Gran % (Auto) 1.0 H Neut % (Auto) 57.1 Lymph % (Auto) 28.4 [place] % (Auto) 7.5 Eos % (Auto) 5.4 H Baso % (Auto) 0.6 Lymph # (Auto) 2.6 [place] # (Auto) 0.7 Eos # (Auto) 0.5 H Baso # (Auto) 0.1 Abs Immat Gran (auto) 0.09 H Absolute Neuts (auto) 5.3 Absolute Nucleated RBC 0.000 Nucleated RBC % (auto) 0.0 Anion Gap 14 Estim Creat Clear Calc 105.1 Estimated GFR > 60 Fasting Glucose 89 Calcium 9.2 D Total Bilirubin 0.4 AST 13 ALT 11 Alkaline Phosphatase 43 Total Protein 6.2 L Albumin 3.3 L Microbiology Microbiology Results: Microbiology 04/21/24 11:05 Gram Stain - Final Abscess Intra-abdominal Routine Culture - Final Mila albicans Assessment and Plan (1) S/P laparoscopic colectomy: Status: Acute (2) Diverticulitis large intestine: Status: Acute (3) Intra-abdominal abscess: Status: Acute Plan Cathie Arguello is a 58 years old woman admitted with: Acute Hypoxic respiratory failure, suspected underlying COPD/acute bronchitis/no CHF Hypoxia resolved CTA chest showed no PE, but showed dependent infiltrates/ground-glass changes right greater than left suggestive of interstitial/alveolar pulmonary edema and less likely infectious Echo showed EF 35-40%, moderate global hypokinesis and impaired relaxation filling pattern, question stress-induced cardiomyopathy Clinically no evidence of systolic congestive heart failure, normal troponin and BNP Seen by cardiology they recommend valsartan 20 b.i.d. and beta-blockers Outpatient follow-up with Cardiology Dr. Aguirre Sinus tachycardia with underlying left bundle branch block unknown duration Normal troponin x2, likely due to infection, underlying cardiomyopathy metoprolol 12.5 b.i.d. Acute diverticulitis. Status post hand assisted laparoscopic sigmoid resection POD# 4 on iv Flagyl, ceftriaxone and doxycycline started / 6. Will DC IV ceftriaxone and transition IV Flagyl and doxy to by mouth Seen by Dr. Mandujano from OBGYN he recommend doxycycline 100 mg b.i.d. and Flagyl 500 mg b.i.d. for total 14 days end date 04/29 to cover for possible tubo-ovarian abscess although less likely with recent negative STD screen outpatient follow- up with OBGYN in 2 weeks in regard to complex cyst of left ovary he recommend outpatient pelvic MRI for further evaluation. outpatient endometrial sampling versus hysteroscopy D&C polypectomy for postmenopausal bleeding.(patient has an appointment with Dr. Mandujano on 05/08) Encourage ambulation, transitioned to by mouth analgesics. Acute hypomagnesemia repleted and normalized. Acute hypokalemia repleted. Dysuria. resolved, UA showed no bacteria. Over reactive bladder. Continue Myrbetriq. Tobacco smoking. Tobacco cessation education. DVT prophylaxis: Up ad isaura Code status: Full Patient will need continued inpatient hospitalization for IV antibiotics , analgesics and safe disposition. Quality Stroke Does the patient have a stroke diagnosis?: No VTE Prior VTE?: No VTE Risk Level:: Medical - moderate - high VTE Device Contraindication: Treatment Not Indicated VTE Drug Contraindication: N/A - Med Ordered
--- NOTE | 2024-04-25 13:34 | MHC.CM.PN ---
EMR reviewed and per MD rounds, pt is not medically cleared for discharge due to management of post operative care.
[2024-04-25] MEDS: metroNIDAZOLE 500 MG TABLET PO ×2 (13:43→21:34)
[2024-04-25] MEDS: Doxycycline Monohydrate 100 MG CAPSULE PO ×2 (13:43→23:04)
[2024-04-25 16:00] VITALS: BP 145/89; PULSE 69; RESP 18; TEMP 36.2; O2SAT 94
[2024-04-25] MEDS: Acetaminophen 325 MG TABLET 650 MG PO (16:50)
[2024-04-25 19:24] VITALS: BP 138/82; PULSE 71; RESP 18; TEMP 36.5; O2SAT 93
[2024-04-25] MEDS: Nystatin Oral Susp 500,000 UNIT/5 ML ORAL.SUSP 500000 UNIT PO (23:04)
[2024-04-25 23:53] VITALS: BP 135/75; PULSE 71; RESP 20; TEMP 36.8; O2SAT 93
[2024-04-26] VITALS: RESP 18
[2024-04-26] MEDS: oxyCODONE HCl Immed Release 5 MG TABLET 10 MG PO ×6 (02:24→22:32)
[2024-04-26 04:00] VITALS: RESP 20
[2024-04-26] MEDS: metroNIDAZOLE 500 MG TABLET PO ×3 (05:11→20:14)
[2024-04-26 07:58] VITALS: BP 127/73; PULSE 80; RESP 18; TEMP 36.7; O2SAT 91
[2024-04-26] MEDS: Cholecalciferol (Vitamin D3) 25 MCG TABLET PO (08:42)
[2024-04-26] MEDS: Mirabegron 50 MG TAB.ER.24H PO (08:42)
[2024-04-26] MEDS: Metoprolol Tartrate 12.5 MG HALFTAB PO ×2 (08:42→20:14)
[2024-04-26] MEDS: Valsartan 40 MG TABLET 20 MG PO ×2 (08:42→20:14)
[2024-04-26] MEDS: oxyCODONE HCl Immed Release 5 MG TABLET PO ×3 (08:48→17:03)
[2024-04-26] MEDS: Nystatin Oral Susp 500,000 UNIT/5 ML ORAL.SUSP 500000 UNIT PO ×4 (08:49→20:14)
[2024-04-26] MEDS: Doxycycline Monohydrate 100 MG CAPSULE PO (11:20)
[2024-04-26 11:48] VITALS: BP 115/72; PULSE 84; RESP 18; TEMP 36.9
--- NOTE | 2024-04-26 12:20 | P.PNIM_ITS ---
Subjective Subjective Date of Service: 04/26/24 Interval History: Feeling better, moving bowels , complaining of persistent abdominal pain requiring narcotics every 4 hours, tolerating diet, denies fever, no chills, no other acute issues overnight. Review of Systems All other system reviewed and are negative. Physical Exam 2 Vital Signs: Vital Signs: Last Vital Signs Temp 98.4 F 04/26/24 11:48 Pulse 84 04/26/24 11:48 Resp 18 04/26/24 11:48 BP 115/72 04/26/24 11:48 Pulse Ox 91 L 04/26/24 07:58 O2 Del Method Room Air 04/26/24 11:48 O2 Flow Rate 2 04/22/24 19:36 BMI result Body Mass Index 20.0 Const: Other: General awake alert x3, in no acute distress. Anicteric sclera Neck no JVD. CVS regular rate rhythm, Respiratory lungs , no respiratory distress, no wheeze, no rhonchi. Gastrointestinal abdomen diffuse ecchymosis , midline incision, tender to palpation, bowel sounds audible, no guarding , no rigidity. Extremities no edema. Neuro non focal Skin no rash Psych appropriate affect Objective Data Active Medications Acetaminophen (Acetaminophen 325 Mg Tablet) 650 mg PO Q6H PRN PRN Reason: Pain, Mild (Pain Scale 1-3) Last Admin: 04/25/24 16:50 Dose: 650 mg Documented By: SHADI Albuterol Sulfate (Albuterol Sulfate 90 Mcg 8 Gm Inhaler) 2 puff INHALE RQ4H PRN PRN Reason: sob Benzonatate (Benzonatate 100 Mg Capsule) 100 mg PO TID PRN PRN Reason: Cough Doxycycline Monohydrate (Doxycycline Monohydrate 100 Mg Capsule) 100 mg PO Q12H [facility] Last Admin: 04/26/24 11:20 Dose: 100 mg Documented By: GARTH Melatonin (Melatonin 3 Mg Tablet) 6 mg PO BEDTIME PRN PRN Reason: Insomnia Last Admin: 04/25/24 01:04 Dose: 6 mg Documented By: SUSHMA Metoprolol Tartrate (Metoprolol Tartrate 12.5 Mg Halftab) 12.5 mg PO BID [facility]; Protocol Last Admin: 04/26/24 08:42 Dose: 12.5 mg Documented By: GARTH Metronidazole (Metronidazole 500 Mg Tablet) 500 mg PO Q8H [facility] Last Admin: 04/26/24 11:20 Dose: 500 mg Documented By: GARTH Mirabegron (Mirabegron 50 Mg Tab.Er.24h) 50 mg PO DAILY [facility] Last Admin: 04/26/24 08:42 Dose: 50 mg Documented By: GARTH Nystatin (Nystatin Oral Susp 500,000 Unit/5 Ml Oral.Susp) 500,000 unit PO QID [facility]; Protocol Last Admin: 04/26/24 11:20 Dose: 500,000 unit Documented By: GARTH Ondansetron HCl (Ondansetron Hcl 4 Mg/2 Ml Vial) 4 mg IVPUSH QID PRN PRN Reason: Nausea Oxycodone HCl (Oxycodone Hcl Immed Release 5 Mg Tablet) 5 mg PO Q4H PRN PRN Reason: Pain, Moderate(Pain Scale 4-6) Last Admin: 04/26/24 08:48 Dose: 5 mg Documented By: GARTH Oxycodone HCl (Oxycodone Hcl Immed Release 5 Mg Tablet) 10 mg PO Q4H PRN PRN Reason: Pain, Severe (Pain Scale 7-10) Last Admin: 04/26/24 10:38 Dose: 10 mg Documented By: GARTH Prochlorperazine Edisylate (Prochlorperazine Edisylate 10 Mg/2 Ml Vial) 5 mg IVPUSH Q6H PRN PRN Reason: Nausea and Vomiting Last Admin: 04/20/24 16:18 Dose: 5 mg Documented By: STEVE Sodium Chloride (0.9 % Sodium Chloride Flush 3 Ml Syringe) [facility] Last Admin: 04/26/24 12:01 Dose: Not Given Documented By: GARTH Non-Admin Reason: Previously Administered Valsartan (Valsartan 40 Mg Tablet) 20 mg PO BID [facility]; Protocol Last Admin: 04/26/24 08:42 Dose: 20 mg Documented By: GARTH Vitamin D (Cholecalciferol (Vitamin D3) 25 Mcg Tablet) 25 mcg PO DAILY [facility] Last Admin: 04/26/24 08:42 Dose: 25 mcg Documented By: GARTH Labs 04/25/24 05:36 04/25/24 05:36 Microbiology Microbiology Results: Microbiology 04/21/24 11:05 Gram Stain - Final Abscess Intra-abdominal Routine Culture - Final Mila albicans Assessment and Plan (1) Diverticulitis large intestine: Status: Acute (2) S/P laparoscopic colectomy: Status: Acute Plan Cathie Arguello is a 58 years old woman admitted with: Acute Hypoxic respiratory failure, suspected underlying COPD/acute bronchitis/no CHF Hypoxia resolved CTA chest showed no PE, but showed dependent infiltrates/ground-glass changes right greater than left suggestive of interstitial/alveolar pulmonary edema and less likely infectious Echo showed EF 35-40%, moderate global hypokinesis and impaired relaxation filling pattern, question stress-induced cardiomyopathy Clinically no evidence of systolic congestive heart failure, normal troponin and BNP Continue valsartan 20 b.i.d. and beta-blockers Outpatient follow-up with Cardiology Dr. Aguirre Sinus tachycardia with underlying left bundle branch block unknown duration Normal troponin x2, likely due to infection, underlying cardiomyopathy metoprolol 12.5 b.i.d. Acute diverticulitis. Status post hand assisted laparoscopic sigmoid resection POD# 5 s/p iv Flagyl, ceftriaxone and doxycycline started 04/15. now on po Flagyl and doxy to by mouth day 07/[address]. [address] Mandujano from OBGYN he recommend doxycycline 100 mg b.i.d. and Flagyl 500 mg b.i.d. for total 14 days end date 04/29 to cover for possible tubo-ovarian abscess although less likely with recent negative STD screen outpatient follow- up with OBGYN in 2 weeks in regard to complex cyst of left ovary he recommend outpatient pelvic MRI for further evaluation. outpatient endometrial sampling versus hysteroscopy D&C polypectomy for postmenopausal bleeding.(patient has an appointment with Dr. Mandujano on 05/08) Encourage ambulation, transitioned to by mouth analgesics. Acute hypomagnesemia repleted and normalized. Acute hypokalemia repleted. Dysuria. resolved, UA showed no bacteria. Over reactive bladder. Continue Myrbetriq. Tobacco smoking. Tobacco cessation education. DVT prophylaxis: Up ad isaura Code status: Full Patient will need continued inpatient hospitalization for close clinical monitoring, tolerance of by mouth antibiotics, analgesics and safe disposition. Quality Stroke Does the patient have a stroke diagnosis?: No VTE Prior VTE?: No VTE Risk Level:: Medical - moderate - high VTE Device Contraindication: Treatment Not Indicated VTE Drug Contraindication: N/A - Med Ordered
[2024-04-26 14:55] VITALS: BP 122/78; PULSE 83; RESP 18; TEMP 37.1; O2SAT 95
--- NOTE | 2024-04-26 16:04 | PM.PNGS ---
Subjective Subjective Date of Service: 04/26/24 Interval history: pt complaining of feeling bloated but better - hoping to go home tomorrow, tolerating po diet and having bowel movements, pain is better Physical Exam Vital Signs: Vital Signs: Last Vital Signs Temp 98.8 F 04/26/24 14:55 Pulse 83 04/26/24 14:55 Resp 18 04/26/24 14:55 BP 122/78 04/26/24 14:55 Pulse Ox 95 04/26/24 14:55 O2 Del Method Room Air 04/26/24 14:55 O2 Flow Rate 2 04/22/24 19:36 BMI result Body Mass Index 20.0 GI: Other: abdo is a little distended and tender at bruises, good bowel sounds . Objective Data Active Medications Acetaminophen (Acetaminophen 325 Mg Tablet) 650 mg PO Q6H PRN PRN Reason: Pain, Mild (Pain Scale 1-3) Last Admin: 04/25/24 16:50 Dose: 650 mg Documented By: SHADI Albuterol Sulfate (Albuterol Sulfate 90 Mcg 8 Gm Inhaler) 2 puff INHALE RQ4H PRN PRN Reason: sob Benzonatate (Benzonatate 100 Mg Capsule) 100 mg PO TID PRN PRN Reason: Cough Doxycycline Monohydrate (Doxycycline Monohydrate 100 Mg Capsule) 100 mg PO Q12H [facility] Last Admin: 04/26/24 11:20 Dose: 100 mg Documented By: GARTH Melatonin (Melatonin 3 Mg Tablet) 6 mg PO BEDTIME PRN PRN Reason: Insomnia Last Admin: 04/25/24 01:04 Dose: 6 mg Documented By: SUSHMA Metoprolol Tartrate (Metoprolol Tartrate 12.5 Mg Halftab) 12.5 mg PO BID [facility]; Protocol Last Admin: 04/26/24 08:42 Dose: 12.5 mg Documented By: GARTH Metronidazole (Metronidazole 500 Mg Tablet) 500 mg PO Q8H [facility] Last Admin: 04/26/24 11:20 Dose: 500 mg Documented By: GARTH Mirabegron (Mirabegron 50 Mg Tab.Er.24h) 50 mg PO DAILY [facility] Last Admin: 04/26/24 08:42 Dose: 50 mg Documented By: GARTH Nystatin (Nystatin Oral Susp 500,000 Unit/5 Ml Oral.Susp) 500,000 unit PO QID [facility]; Protocol Last Admin: 04/26/24 11:20 Dose: 500,000 unit Documented By: GARTH Ondansetron HCl (Ondansetron Hcl 4 Mg/2 Ml Vial) 4 mg IVPUSH QID PRN PRN Reason: Nausea Oxycodone HCl (Oxycodone Hcl Immed Release 5 Mg Tablet) 5 mg PO Q4H PRN PRN Reason: Pain, Moderate(Pain Scale 4-6) Last Admin: 04/26/24 12:50 Dose: 5 mg Documented By: AMBROSE Oxycodone HCl (Oxycodone Hcl Immed Release 5 Mg Tablet) 10 mg PO Q4H PRN PRN Reason: Pain, Severe (Pain Scale 7-10) Last Admin: 04/26/24 14:45 Dose: 10 mg Documented By: GARTH Prochlorperazine Edisylate (Prochlorperazine Edisylate 10 Mg/2 Ml Vial) 5 mg IVPUSH Q6H PRN PRN Reason: Nausea and Vomiting Last Admin: 04/20/24 16:18 Dose: 5 mg Documented By: STEVE Sodium Chloride (0.9 % Sodium Chloride Flush 3 Ml Syringe) [facility] Last Admin: 04/26/24 12:01 Dose: Not Given Documented By: GARTH Non-Admin Reason: Previously Administered Valsartan (Valsartan 40 Mg Tablet) 20 mg PO BID [facility]; Protocol Last Admin: 04/26/24 08:42 Dose: 20 mg Documented By: GARTH Vitamin D (Cholecalciferol (Vitamin D3) 25 Mcg Tablet) 25 mcg PO DAILY [facility] Last Admin: 04/26/24 08:42 Dose: 25 mcg Documented By: GARTH Labs 04/25/24 05:36 04/25/24 05:36 Procedures Date of Service Date of Service: 04/26/24 Progress Note: A&P Assessment and plan (1) S/P laparoscopic colectomy: Status: Acute Plan pt doing well s/p la colectomy now - to be dc home and fu outpt with surgery in 2 weeks. pt to follow up with [employer] as outpt. Time Spent With Patient Time: Total time managing care of this patient today ____ minutes. Quality Stroke Does the patient have a stroke diagnosis?: No VTE Prior VTE?: No VTE Risk Level:: Medical - moderate - high VTE Device Contraindication: Treatment Not Indicated VTE Drug Contraindication: N/A - Med Ordered
[2024-04-26 19:38] VITALS: BP 113/69; PULSE 92; RESP 18; TEMP 36; O2SAT 93
[2024-04-26] MEDS: Acetaminophen 325 MG TABLET 650 MG PO (20:14)
--- NOTE | 2024-04-26 21:33 | PC.NURSE ---
Assumed care of patient at 19:00. Handoff report given at 21:30. Please see shift assessment, task, and MAR for full details.
[2024-04-27] MEDS: Doxycycline Monohydrate 100 MG CAPSULE PO (02:20)
[2024-04-27] MEDS: oxyCODONE HCl Immed Release 5 MG TABLET 10 MG PO ×3 (02:23→10:34)
[2024-04-27 03:58] VITALS: BP 117/71; PULSE 83; RESP 16; TEMP 36.4; O2SAT 94
[2024-04-27] MEDS: Acetaminophen 325 MG TABLET 650 MG PO (04:54)
[2024-04-27] MEDS: metroNIDAZOLE 500 MG TABLET PO (04:55)
[2024-04-27 08:00] VITALS: BP 115/73; PULSE 85; RESP 18; TEMP 37.2; O2SAT 95
[2024-04-27] MEDS: Metoprolol Tartrate 12.5 MG HALFTAB PO (09:05)
[2024-04-27] MEDS: Mirabegron 50 MG TAB.ER.24H PO (09:05)
[2024-04-27] MEDS: 0.9 % Sodium Chloride Flush 3 ML SYRINGE IVFLUSH (09:05)
[2024-04-27] MEDS: Cholecalciferol (Vitamin D3) 25 MCG TABLET PO (09:05)
[2024-04-27] MEDS: Nystatin Oral Susp 500,000 UNIT/5 ML ORAL.SUSP 500000 UNIT PO (09:06)
[2024-04-27] MEDS: Valsartan 40 MG TABLET 20 MG PO (09:06)
--- NOTE | 2024-04-27 09:46 | PM.DS ---
DS: Providers Provider Date of Service: 04/27/24 Date of admission: 04/15/24 22:13 Primary care physician: Paresh Strong MD Consults: 04/15/24 15:18 Consult to Cardiology Stat Consulting Provider: [facility] Reason for consultation: rapid flutter Has provider been notified: Yes 04/15/24 22:19 Consult to Cardiology Routine Consulting Provider: [facility] [place] Reason for consultation: LBBB, tachycardia Has provider been notified: Yes 04/16/24 11:06 Consult to General Surgery Routine Consulting Provider: Tony Garnett Reason for consultation: recurrent diverticulitis Has provider been notified: No 04/16/24 11:08 Consult to Obstetrics / Gynecology Routine Consulting Provider: Phillip Mandujano Reason for consultation: left adnexa abscess Has provider been notified: No DS: Diagnosis Discharge Diagnosis (1) S/P laparoscopic colectomy: Status: Acute DS: Summary Hospital Course Hospital Course: History of presenting illness: Date of Service: 04/15/24 Attending physician on admission: Yoni Mitchell Chief Complaint: Shortness of breaths Cathie Arguello is a 58 years old woman with past medical history significant for UC, fibromyalgia and over reactive bladder presents to the emergency department complaining of multiple symptoms including shortness on breath, productive cough of yellowish sputum, chest tightness, palpitations suggestive fever, chills, sweats, vaginal spotting + yellowish discharge, LLQ pain, RLQ pain radiating to the back, pain with urination, occasional rectal bleeding, nausea, vomiting and soft stools (this is normal to her). Patient denied alcohol abuse. She has an ongoing tobacco smoker and smokes 1 pack per day, smokes and consumes marijuana edible occasionally. Denies illicit drug use. In the ED, she was found to have sinus tachycardia, tachypnea and oxygen saturation of 88% on room air. She is currently requiring 2 liters/minute supplemental oxygen via nasal cannula. Blood workup was remarkable for leukocytosis of 12.7, hemoglobin 16.7 and platelets 196. There is hypokalemia 2.9, hyponatremia 130 and hypomagnesemia 1.4. Bilirubin is slightly elevated 1.2, but other LFTs are normal. BNP is 24 and troponin is 5.6. Urinalysis is not available. Viral testing is negative for COVID-19, influenza and RSV. Chest, abdomen pelvis CT scan showed marked thickening of the sigmoid colon with extensive diverticular changes without drainable fluid collections, possibly representing mild diverticulitis. It also showed finding possible secondary to hydro/pyosalpinx. Pelvic ultrasound done but results still pending. Chest CTA showed no PE, however showed findings a suggestive of interstitial and alveolar pulmonary edema. ECGs showed sinus tachycardia associated with lung bundle branch block which seems to be new. ECG was repeated after resolution of tachycardia and showed normal sinus rhythm with a heart rate of 76 beats per minute, with T-wave inversions in the anterior and inferior leads, QT is prolonged with 510 msec. TTE showed EF of 35-40% with impaired relaxation filling pattern. ED tx: Metoprolol 5 mg IV, DuoNeb, magnesium 2 g IV, potassium 20 mEq p.o., KCl IV, metoprolol 25 mg p.o. daily, metronidazole 500 mg IV, Levaquin 700 mg IV, magnesium sulfate 2 g IV Hospital course: 58 years old woman admitted with Acute Hypoxic respiratory failure, underwent extensive testing, CTA chest showed no PE, but showed dependent infiltrates/ground-glass changes right greater than left suggestive of interstitial/alveolar pulmonary edema and less likely infection,Echo showed EF 35-40%, moderate global hypokinesis and impaired relaxation filling pattern, question stress-induced cardiomyopathy, clinically had no evidence of systolic congestive heart failure, normal troponin and BNP, hypoxia likely due to underlying COPD/acute bronchitis , patient also noted to have sinus tachycardia with underlying left bundle branch block of unknown duration, troponin were negative, patient seen by fly tier Dr. Aguirre he recommended low-dose beta-blockers and valsartan patient is tolerating metoprolol 12.5 mg b.i.d. and valsartan 20 mg b.i.d. with good blood pressure control recommend outpatient follow-up with Cardiology for repeat echocardiogram to rule out possibility of stress-induced cardiomyopathy. In regard to abdominal pain, patient diagnosed to have Acute diverticulitis with history of underlying recurrent diverticulitis and possible abscess, patient evaluated by General surgery and underwent hand assisted laparoscopic sigmoid resection ,Postprocedure patient is doing well, recommend to continue oxycodone for moderate to severe pain, and Tylenol for mild pain,and outpatient follow-up with Dr. Garnett, patient treated with iv Flagyl, ceftriaxone and doxycycline to cover for acute diverticulitis and possible tubo ovarian abscess, although less likely with recent negative STD screen, patient will finish a total 14 day course of doxycycline and Flagyl, she is recommended outpatient follow-up with Dr. Rodrigues in 2 weeks. Patient noted to have multiple electrolyte abnormalities including hypo magnesemia, hypokalemia repleted and normalized. She is recommended to continue nystatin for oral thrush. In regard to complex cyst of left ovary recommend outpatient pelvic MRI for further evaluation, and outpatient endometrial sampling versus hysteroscopy D&C polypectomy for postmenopausal bleeding.(patient has an appointment with Dr. Mandujano on 05/08) History of Over reactive bladder, UA was unremarkable,Continue Myrbetriq. Tobacco smoking. Tobacco cessation education provided.. Time Attestation Discharge Coordination Time (in mins): 40 Quality: Safe Use of Opioids Does Pt have an Active Cancer Diagnosis on the Problem List?: No Quality: Stroke Does the patient have a stroke diagnosis?: No Physical Exam Vital Signs: Vital Signs: Last Vital Signs Temp 98.9 F 04/27/24 08:00 Pulse 85 04/27/24 08:00 Resp 18 04/27/24 08:00 BP 115/73 04/27/24 08:00 Pulse Ox 95 04/27/24 08:00 O2 Del Method Room Air 04/27/24 08:00 O2 Flow Rate 2 04/22/24 19:36 BMI result Body Mass Index 20.0 Const: Other: General awake alert x3, in no acute distress. Anicteric sclera Neck no JVD. CVS regular rate rhythm, Respiratory lungs , no respiratory distress, no wheeze, no rhonchi. Gastrointestinal abdominal wall ecchymosis , midline incision,mild tender to palpation, bowel sounds audible, no guarding , no rigidity. Extremities no edema. Neuro non focal Skin no rash Psych appropriate affect DS: Data Data Completed and Pending Completed studies during hospitalization [Text1]: Pending at discharge 04/21/24 12:00 Surgical Path [Surgical] [PTH] Routine Procedures Excision of Sigmoid Colon, Via Natural or Artificial Opening Endoscopic, Diagnostic (05/22/23) Discharge Plan Discharge Anticipated Discharge Date/Time: 04/27/24 09:35 Patient Disposition: Home, Self-Care Discharge Diagnosis: Acute hypoxic respiratory failure Acute diverticulitis status post sigmoid resection Referrals: Paresh Strong MD [Primary Care Provider] - 1 Week Tony Garnett MD [Physician] - 1 Week Discharge Medications: New oxycodone 5 mg Tablet 5 mg PO Q4H PRN (Reason: pain (scale score 7-10)) Qty: 20 0RF Rx Instructions: Take 5 mg 1-2 tablet as needed for moderate to severe pain. ondansetron 4 mg tablet,disintegrating 4 mg PO Q8H PRN (Reason: nausea and vomiting) Qty: 20 0RF metronidazole 500 mg Tablet 500 mg PO Q8H Qty: 8 0RF doxycycline monohydrate 100 mg Capsule 100 mg PO Q12H Qty: 5 0RF albuterol sulfate [Ventolin HFA] 90 mcg/actuation Hfa Aerosol Inhaler 2 puff inhalation RQ4H PRN (Reason: sob) Qty: 8.5 0RF nystatin 100,000 unit/mL Suspension 500,000 unit PO QID 11 Days Qty: 220 0RF valsartan 40 mg Tablet 20 mg PO BID Qty: 60 0RF Protocol: Hold for SBP< HOLD for SBP < : 90 metoprolol tartrate 25 mg tablet 12.5 mg PO BID Qty: 30 0RF Continued Myrbetriq 50 mg tablet extended release 24 hr 50 mg PO DAILY 90 Days Qty: 90 1RF calcium carbonate [Oyster Shell Calcium] 500 mg calcium (1,250 mg) tablet 500 mg PO BID cholecalciferol (vitamin D3) 25 mcg (1,000 unit) tablet 25 mcg PO DAILY Discontinued nitrofurantoin monohyd/m-cryst [Macrobid] 100 mg capsule 100 mg PO BID PRN (Reason: UTI) 5 Days Qty: 10 0RF Rx Instructions: must administer with a meal/food Discharge Orders: Discharge Order (Routine); Ordered 04/27/24 Ordered By: Sherrill Hernandez Diet: Advance to usual diet Activity on Discharge: As tolerated Stand Alone Forms: Patient Portal Discharge page Print Language: Nigerian Activity Restrictions/Additional Instructions: If the incision area is tender, you may apply an ice pack for short intervals (No more than 20 minutes on, followed by at least 20 minutes off). Do not apply heat. Do not use creams, lotions, or topical antibiotics. You have steri strips (small white cloth strips) covering your incision- these will fall off ~1 week. No heavy lifting (>10lbs) or strenuous activity! Take Tylenol Extra-strength 1-2 tabs every 6 hours as needed. Oxycodone every 6-8 hours as needed for pain. Colace 100 mg every day as needed for constipation. Follow up in office with Dr. Garnett in 1 week. ([phone]) Call Your Doctor If: -Your temperature exceeds 101.5? F -You experience excessive pain or swelling -You have an unexpected reaction to medication -You have excessive bleeding -You experience continued vomiting/nausea -Your incision begins to separate -Your incision shows signs of infection such as increased redness, swelling, excessive pain, drainage (light blood or clear fluid is normal) or heat Care Plan Goals: Take doxycycline and Flagyl as prescribed Minimize use of oxycodone, take 5 to 10 mg tablet q.4 to 6 hours as needed, use Tylenol 500-1000 mg 3 times a day Finished course of nystatin Health Concerns: Continue home medications from before Plan of Treatment: Outpatient follow-up Dr. Hugh Mandujano Outpatient follow-up with primary care physician call for appointment Outpatient follow-up Dr. Garnett as above Assessment: as above Patient Instructions: Doxycycline (By mouth), Metronidazole (By mouth), Bowel Resection (DC)
--- NOTE | 2024-04-27 11:09 | MHC.CM.PN ---
PT WILL DC HOME TODAY WITH NO SERVICES VIA SELF TRANSPORT
== END 2024-04-27 10:48 | disposition home or self-care (01) | DRG 231 ==
LOC: HO.ED 20:37 → HO.EDOVER 22:18 → HO.S3 04-16 10:12
PROVIDERS: Emergency Medicine; Hospitalist; Obstetrics & Gynecology; Physician Assistant Surgical; Surgery; Admitting Provider Internal Medicine; Emergency Provider Emergency Medicine; PCP Internal Medicine Medical Oncology; Visit Provider Hospitalist
PROC: 0DTE0ZZ Resection of Large Intestine, Open Approach (ICD-10-PCS; principal; 2024-04-21 08:50)
DX: K57.20 Diverticulitis of large intestine with perforation and abscess without bleeding (principal); J96.01 Acute respiratory failure with hypoxia; J44.0 Chronic obstructive pulmonary disease with (acute) lower respiratory infection; J20.9 Acute bronchitis, unspecified; E87.1 Hypo-osmolality and hyponatremia; N83.202 Unspecified ovarian cyst, left side; E87.6 Hypokalemia; K66.0 Peritoneal adhesions (postprocedural) (postinfection); R00.0 Tachycardia, unspecified; G89.18 Other acute postprocedural pain; R94.31 Abnormal electrocardiogram [ECG] [EKG]; N95.0 Postmenopausal bleeding; E83.42 Hypomagnesemia; N32.81 Overactive bladder; F17.210 Nicotine dependence, cigarettes, uncomplicated; I51.81 Takotsubo syndrome; I44.7 Left bundle-branch block, unspecified; I48.92 Unspecified atrial flutter; Z20.822 Contact with and (suspected) exposure to COVID-19; Z71.6 Tobacco abuse counseling; Z79.899 Other long term (current) drug therapy
CPT/HCPCS: 0241U; 0352U; 36415; 71045; 71275; 74177; 76830; 76856; 80048; 80053; 80061; 81001; 83036; 83735; 83880; 84443; 84484; 85025; 85027; 85379; 86850; 86900; 86901; 87070; 87077; 87086; 87205; 87491; 87591; 88304; 88305; 88307; 93005; 93306; 94640; 99285; 99499; J0131; J0696; J0737; J1100; J1170; J1644; J1836; J1956; J2250; J2270; J2371; J2405; J2704; J2795; J2919; J3010; J3475; J3480; J7120; Q9957; Q9967

== ENCOUNTER → 2024-04-15 15:19 | Outpatient (BNV) | payer OTHER, SELFPAY | PROVIDERS: Emergency Provider Emergency Medicine; PCP Internal Medicine Medical Oncology; Visit Provider Internal Medicine Cardiovascular Disease | DX: I42.9 Cardiomyopathy, unspecified (principal); I44.7 Left bundle-branch block, unspecified; R00.0 Tachycardia, unspecified | CPT/HCPCS: 93010; 93306; 99222; 99233 ==

== ENCOUNTER → 2024-04-15 22:13 | Outpatient (BNV) | payer OTHER, SELFPAY | PROVIDERS: Admitting Provider Internal Medicine; Emergency Provider Emergency Medicine; PCP Internal Medicine Medical Oncology; Visit Provider Internal Medicine | DX: G89.18 Other acute postprocedural pain (principal); Z90.49 Acquired absence of other specified parts of digestive tract | CPT/HCPCS: 99223; 99232; 99233; 99239 ==

== ENCOUNTER → 2024-04-15 22:13 | Outpatient (BNV) | payer OTHER, SELFPAY | PROVIDERS: Admitting Provider Internal Medicine; Emergency Provider Emergency Medicine; PCP Internal Medicine Medical Oncology; Visit Provider Obstetrics & Gynecology | DX: N95.0 Postmenopausal bleeding (principal); N70.93 Salpingitis and oophoritis, unspecified; N83.292 Other ovarian cyst, left side; K57.32 Diverticulitis of large intestine without perforation or abscess without bleeding | CPT/HCPCS: 99222 ==

== ENCOUNTER → 2024-04-15 22:13 | Outpatient (BNV) | payer OTHER, SELFPAY | PROVIDERS: Admitting Provider Internal Medicine; Emergency Provider Emergency Medicine; PCP Internal Medicine Medical Oncology; Visit Provider Surgery | DX: Z90.49 Acquired absence of other specified parts of digestive tract (principal) | CPT/HCPCS: 44204; 99024; 99222; 99231; 99232 ==

== ENCOUNTER 2024-05-08 10:03 | Outpatient (REF) | payer OTHER, SELFPAY ==
[2024-05-08 13:41] LABS: Blood Urea Nitrogen 10 mg/dL (9-16); Estimated Glomerular Filt Rate > 60
== END 2024-05-08 10:04 | disposition home or self-care (01) ==
LOC: HO.LAB 10:03
PROVIDERS: Absent Provider Obstetrics & Gynecology; PCP Internal Medicine Medical Oncology; Visit Provider Surgery
DX: N95.0 Postmenopausal bleeding (principal); N83.292 Other ovarian cyst, left side; Z48.815 Encounter for surgical aftercare following surgery on the digestive system; Z90.49 Acquired absence of other specified parts of digestive tract; Z87.19 Personal history of other diseases of the digestive system
CPT/HCPCS: 36415; 58100; 82565; 84520; 99212

== ENCOUNTER 2024-05-08 10:12 | Outpatient (AMB) | payer OTHER, SELFPAY ==
--- NOTE | 2024-05-08 10:16 | A.OFFVIS_ITS ---
Vital Signs 05/08/24 10:18 Height 5 ft 2 in Weight 107 lb BMI 19.6 BP 111/69 Blood Pressure Location Lt brachial Position Sitting Pulse 81 Intake Visit Reasons: s/p Colon Resection Laparoscopic Intake Note: Patient is seen in office for post op assessment post laparoscopic colon resection. 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 Required: No Accompanied by: Family/Other Allergies amoxicillin [From Augmentin] Allergy (Intermediate, Verified 05/08/24 10:20) Vomiting clavulanic acid [From Augmentin] Allergy (Intermediate, Verified 05/08/24 10:20) Vomiting nitrofurantoin Adverse Reaction (Severe, Verified 05/08/24 10:20) Shortness of Breath Medication List - Last Reconciled 05/08/24 by Tony Garnett MD albuterol sulfate 90 mcg/actuation (Ventolin HFA) 2 puffs inhalation RQ4H PRN calcium carbonate (Oyster Shell Calcium) 500 mg PO BID cholecalciferol (vitamin D3) 25 mcg PO DAILY metoprolol tartrate 12.5 mg (1/2 x 25 mg) PO BID mirabegron ER (Myrbetriq) 50 mg PO DAILY 90 days nystatin 500,000 units (5 mL) PO QID 11 days ondansetron 4 mg PO Q8H PRN oxycodone 5 mg PO Q4H PRN valsartan 20 mg See Protocol PO BID HPI Comments Details: 58-year-old female patient returning following hand assisted sigmoid colectomy for diverticulitis. She is feeling improved with decreased left lower quadrant abdominal pain in regular bowel movements. 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 She has been eating well but has remained on a low residue diet. She denies any nausea, vomiting, fever or chills. [facility] Medical History Hx of sigmoidoscopy Pyelonephritis Nephrolithiasis Ureterolithiasis Insomnia History of hypertension Tobacco dependence Urinary incontinence Lumbar spinal stenosis Cervical spondylosis Lumbar radiculopathy Fibromyalgia Degenerative joint disease of spine Surgical History S/P laparoscopic colectomy (04/21/24) H/O colonoscopy History of facial surgery History of salpingectomy History of hip surgery History of right knee surgery Family History Father Esophageal cancer Mother Diabetes mellitus Maternal Grandfather Diabetes mellitus Social History Household Members: Family Household Members Other:: Patient lives by herself Housing: House Do you presently have visiting nurse or other home services: No Alcohol intake: current Alcohol intake frequency: 3 or more drinks per day Alcohol type: beer Patient Tobacco Use Status: Current everyday Tobacco user Tobacco use type: Cigarette Cigarette Packs Per Day: 1 Cigarettes Per Day: 20.0 Years Smoked: 30 Substance Use Type: Marijuana Advance Directives Date on File: 05/28/23 service: No Sexual orientation: Straight/Heterosexual Gender identity: Female Physical Exam Vital Signs: Last Vital Signs Pulse 81 05/08/24 10:18 BP 111/69 05/08/24 10:18 BMI result Body Mass Index 19.6 Const General: no acute distress Nutritional Appearance: well nourished Orientation/consciousness: patient oriented x3 Resp Effort & Inspection: normal respiratory effort GI Other: Abdominal incisions are clean, dry, and intact without redness or discharge. No hernias appreciated. Abdomen is otherwise soft and nondistended. Neuro General: patient oriented x3 Extrem Other: No edema Assessment & Plan Assessment & Plan (1) S/P laparoscopic colectomy: Onset Date: 04/21/24 Comment: Hand assisted laparoscopic sigmoid colectomy, colorectal anastomosis, drainage of abscess, extensive lysis of adhesions- Tony Garnett MD Code(s): Z90.49 - Acquired absence of other specified parts of digestive tract Category: Surgical (2) Diverticulitis large intestine: Comment: Severe LLQ pain not IBD/UC and > 3 tx TICS in past year Code(s): K57.32 - Diverticulitis of large intestine without perforation or abscess without bleeding Category: Medical Qualifiers: Diverticulitis bleeding: without bleeding Diverticulitis complication: without perforation or abscess Qualified Code(s): K57.32 - Diverticulitis of large intestine without perforation or abscess without bleeding Plan 58-year-old female patient returning 1 week following discharge from the [facility] after a hand assisted laparoscopic sigmoid colectomy. She tolerated the procedure well and her wounds are healing nicely. She should continue to avoid lifting greater than 10 lb for the next 4 weeks. She should return in 1 month for follow-up examination. She may increase her diet and add fiber as tolerated. Coding Level of Care Code Global (47099) Diagnoses S/P laparoscopic colectomy Z90.49 Diverticulitis of large intestine without perforation or abscess without bleeding K57.32 Diverticulitis bleeding: without bleeding Diverticulitis complication: without perforation or abscess
[2024-05-08 10:18] VITALS: BP 111/69; PULSE 81; BMI 19.6
== END 2024-05-08 10:24 | disposition home or self-care (01) ==
PROVIDERS: PCP Internal Medicine Medical Oncology; Visit Provider Surgery
DX: Z90.49 Acquired absence of other specified parts of digestive tract (principal); K57.32 Diverticulitis of large intestine without perforation or abscess without bleeding
CPT/HCPCS: 99024

== ENCOUNTER 2024-05-08 11:05 | Outpatient (AMB) | payer OTHER, SELFPAY ==
[2024-05-08 11:21] VITALS: BP 110/60; BMI 19.4
--- NOTE | 2024-05-08 11:21 | A.OFFVIS_ITS ---
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 The patient gives a history of recurrent multiple episodes of postmenopausal bleeding and during her in patients admission pelvic ultrasound was done which showed the following: Exam limited by bowel. There is a large fluid-filled loop of bowel in the left adnexal area. There is left-sided tenderness. UTERUS: Unremarkable. Uterus is retroverted and retroflexed. Uterus measures 6.2 x 1.9 x 4.1 cm. Endometrial thickness 0.2 cm ADNEXA: Ovarian vascularity:Doppler demonstrates both arterial and venous vascular flow in the right and left ovary. No evidence of ovarian torsion. Right Ovary: 2.1 x 0.8 x 2.1 cm. Volume 1.8 mL. Left Ovary: Left ovary measures 4.6 x 2.6 x 2.6 cm. Volume 15.7 mL. Anechoic follicle/cyst measuring 2.1 x 1.6 x 1.4 cm. There is a corpus luteum cyst with hypervascular rim in the ovary measuring 1 cm. Adjacent to the left ovary the left adnexa is a thick-walled structure with fluid centrally. The rogers hypervascular on color Doppler. This measures approximately 2.6 x 2.8 x 1.5 cm. This correlates to the rim-enhancing structure in the left adnexa on CT abdomen pelvis April 15, 2024. Given the acute process of the adjacent sigmoid colon colon this is likely a small abscess in the pelvis. A tubo-ovarian abscess is less likely. Cul-de-sac: No Fluid Last co testing was done in 05/03 was negative 05/03 GC/CT were negative PFSH Medical History Hx of sigmoidoscopy Pyelonephritis Nephrolithiasis Ureterolithiasis Insomnia History of hypertension Tobacco dependence Urinary incontinence Lumbar spinal stenosis Cervical spondylosis Lumbar radiculopathy Fibromyalgia Degenerative joint disease of spine Surgical History S/P laparoscopic colectomy (04/21/24) H/O colonoscopy History of facial surgery History of salpingectomy History of hip surgery History of right knee surgery Family History Father Esophageal cancer Mother Diabetes mellitus Maternal Grandfather Diabetes mellitus Social History Household Members: Family Household Members Other:: Patient lives by herself Housing: House Do you presently have visiting nurse or other home services: No Alcohol intake: current Alcohol intake frequency: 3 or more drinks per day Alcohol type: beer Patient Tobacco Use Status: Current everyday Tobacco user Tobacco use type: Cigarette Cigarette Packs Per Day: 1 Cigarettes Per Day: 20.0 Years Smoked: 30 Substance Use Type: Marijuana Advance Directives Date on File: 05/28/23 service: No Sexual orientation: Straight/Heterosexual Gender identity: Female Physical Exam Vital Signs: Last Vital Signs BP 110/60 05/08/24 11:21 BMI result Body Mass Index 19.4 Office Procedures Endometrial Biopsy Details: The patient was counseled regarding the indication and benefits of endometrial sampling to rule out endometrial pathology including not limited to endometrial hyperplasia or endometrial cancer and others; The alternatives (Either do nothing vs. hysteroscopy D&C) & the risks were discussed with the patient including but not limited: pain, uterine perforation, bleeding, infection, possible injury to bladder, bowel, ureter, possible need for blood transfusion with all its possible risks. The patient verbalized understanding all questions answered and signed consent. The patient was placed into the dorsal lithotomy position; a speculum was inserted in the vagina. Using aseptic technique for the procedure, the cervix was cleansed with Betadine. 10 cc of 2% lidocaine was injected at 02, 4, 8 and 10 o'clock at the cervix The anterior lip of the cervix was grasped with a single tooth tenaculum. The uterus was sounded to 7 cm with a 4 mm Pipelle was used. After 2 passes the patient could not tolerate the procedure and was aborted. Minimal tissues samples were obtained and placed in formalin, in a patient labeled container and sent to the pathology department. At the end of the procedure, there was minimal bleeding noted The patient tolerated the procedure well and was discharged in good condition with the following instructions: Nothing in the vagina until the bleeding stops. No sex until the bleeding stops, to call if any of the following occurs: fever (>100.4), flu-like symptoms, abdominal pain, heavy bleeding, four smelling vaginal discharge. The patient was instructed to schedule a Follow up appointment in 2 weeks to discuss pathology results of the biopsy and treatment options. This note was generated with a voice recognition program. Some errors may have been overlooked during the review of this note. Sometimes these errors may affect the content or meaning of a given sentence. [id number] Biopsy Assessment & Plan Assessment & Plan (1) Postmenopausal bleeding: Code(s): N95.0 - Postmenopausal bleeding Category: Medical Plan: Discussed with the patient the differential diagnosis of post menopausal bleeding with normal pelvic exam including but not limited to, endometrial hyperplasia, cancer, polyps and other causes; Explained to the patient that although endometrial stripe is 2 mm with a high negative predictive value endometrial pathology including endometrial hyperplasia and/or malignancy, recommended endometrial sampling to rule out endometrial pathology because of her recurrent episode of vaginal bleeding via hysteroscopy D&C possible polypectomy versus of endometrial biopsy with parac ervical block per patient request to r/o endometrial pathology including hyperplasia or cancer. All the pros and cons risks and benefits of each approach were discussed with the patient, endometrial biopsy being less invasive, office procedure with less sensitivity and inability diagnose a polyp and removal versus hysteroscopy done under anesthesia more invasive more sensitive to endometrial cancer and possibility of diagnosing and endometrial polyp with the possibility of polypectomy. All questions were answered pt verbalized understanding and decided to proceed with endometrial biopsy with paracervical block per patient's request (2) Complex cyst of left ovary: Code(s): N83.292 - Other ovarian cyst, left side Category: Medical Plan: Discussed with the patient the finding on ultrasound showing a left complex ovarian cyst, differential diagnosis discussed with the patient including other benign or malignant ovarian pathology including precancer or cancer . will order pelvic MRI. Instructions given the patient to schedule a pelvic MRI ophelia and a 2 week follow-up appointment. Orders: Orders AMB Endometrial Biopsy Today N83.292 - Other ovarian cyst, left side MR pelvis wo/w con Today N83.292 - Other ovarian cyst, left side Coding Level of Care Code Est Pt Level 3 (19991) Procedure Only Diagnoses Postmenopausal bleeding N95.0 Complex cyst of left ovary N83.292 CPT Codes Endometrial Biopsy - CPT: 86090-[id number] Biopsy ([id number])
== END 2024-05-08 14:07 | disposition home or self-care (01) ==
PROVIDERS: PCP Internal Medicine Medical Oncology; Visit Provider Obstetrics & Gynecology
DX: N95.0 Postmenopausal bleeding (principal); N83.292 Other ovarian cyst, left side
CPT/HCPCS: 58100; 99213

== ENCOUNTER 2024-05-08 12:10 | Outpatient (REF) | payer OTHER, SELFPAY | END 2024-05-08 12:11 | disposition home or self-care (01) | LOC: HO.LNP 12:10 | PROVIDERS: Visit Provider Obstetrics & Gynecology | DX: N95.0 Postmenopausal bleeding (principal); N83.292 Other ovarian cyst, left side | CPT/HCPCS: 88305 ==

== ENCOUNTER 2024-05-15 10:37 | Outpatient (AMB) | payer OTHER, SELFPAY ==
--- NOTE | 2024-05-15 10:39 | A.OFFVIS_ITS ---
Vital Signs 05/15/24 10:45 Height 5 ft 2 in Weight 107 lb BMI 19.6 BP 120/83 Blood Pressure Location Lt brachial Position Sitting Pulse 91 Temp 98 F Intake Visit Reasons: draining, hard lump , Hx colon resection Intake Note: Patient is seen in office for wound check, post laparoscopic colon resection. Pt c/o: constant pain, notice a hard lump past 3 days, redness, nausea, diarrhea, sweats, no temp Research Professional Required: No Accompanied by: Self / Same As Patient Allergies amoxicillin [From Augmentin] Allergy (Intermediate, Verified 05/08/24 10:20) Vomiting clavulanic acid [From Augmentin] Allergy (Intermediate, Verified 05/08/24 10:20) Vomiting nitrofurantoin Adverse Reaction (Severe, Verified 05/08/24 10:20) Shortness of Breath HPI Comments Details: Patient returns for wound check due to a hard lump located in the incision. She reports pain when the incision is palpated. She reports increasing her activity and doing some lifting which seemed to aggravate the pain. She also reports diarrhea with decreased appetite. [facility] Medical History Hx of sigmoidoscopy Pyelonephritis Nephrolithiasis Ureterolithiasis Insomnia History of hypertension Tobacco dependence Urinary incontinence Lumbar spinal stenosis Cervical spondylosis Lumbar radiculopathy Fibromyalgia Degenerative joint disease of spine Surgical History S/P laparoscopic colectomy (04/21/24) H/O colonoscopy History of facial surgery History of salpingectomy History of hip surgery History of right knee surgery Family History Father Esophageal cancer Mother Diabetes mellitus Maternal Grandfather Diabetes mellitus Social History Household Members: Family Household Members Other:: Patient lives by herself Housing: House Do you presently have visiting nurse or other home services: No Alcohol intake: current Alcohol intake frequency: 3 or more drinks per day Alcohol type: beer Patient Tobacco Use Status: Current everyday Tobacco user Tobacco use type: Cigarette Cigarette Packs Per Day: 1 Cigarettes Per Day: 20.0 Years Smoked: 30 Substance Use Type: Marijuana Advance Directives Date on File: 05/28/23 service: No Sexual orientation: Straight/Heterosexual Gender identity: Female Physical Exam Vital Signs: Last Vital Signs Temp 98 F 05/15/24 10:45 Pulse 91 05/15/24 10:45 BP 120/83 05/15/24 10:45 BMI result Body Mass Index 19.6 Const General: no acute distress Nutritional Appearance: well nourished Orientation/consciousness: patient oriented x3 Resp Effort & Inspection: normal respiratory effort GI Other: Abdominal incisions are clean, dry, and intact without redness or discharge. No hernias appreciated. Abdomen is otherwise soft and nondistended. There is a palpable healing ridge noted at the site of the patient's concern. No changes noted with Valsalva maneuvers. Neuro General: patient oriented x3 Extrem Other: No edema Assessment & Plan Assessment & Plan (1) S/P laparoscopic colectomy: Onset Date: 04/21/24 Comment: Hand assisted laparoscopic sigmoid colectomy, colorectal anastomosis, drainage of abscess, extensive lysis of adhesions- Tony Garnett MD Code(s): Z90.49 - Acquired absence of other specified parts of digestive tract Category: Surgical Plan 58-year-old female patient status post sigmoid colectomy for diverticulitis with an abscess. She has some diarrhea currently and incisional pain. On examination there is no evidence of wound infection or hernia. She needs to avoid lifting greater than 10 lb. I will refill her prescription for oxycodone for pain. She will return in 3 weeks for wound examination. Medications: New loperamide (Imodium A-D) 2 mg PO Q6H PRN 30 caps 0RF loose stool Z90.49 - Acquired absence of other specified parts of digestive tract Refilled oxycodone Take 5 mg 1-2 tablet as needed for moderate to severe pain. 5 mg PO Q4H PRN 20 tabs 0RF pain (scale score 7-10) Coding Level of Care Code Global (09378) Diagnoses S/P laparoscopic colectomy Z90.49
[2024-05-15 10:45] VITALS: BP 120/83; PULSE 91; TEMP 36.6; BMI 19.6
== END 2024-05-15 11:06 | disposition home or self-care (01) ==
PROVIDERS: PCP Internal Medicine Medical Oncology; Visit Provider Surgery
DX: Z90.49 Acquired absence of other specified parts of digestive tract (principal)
CPT/HCPCS: 99024

== ENCOUNTER → 2024-05-15 10:37 | Outpatient (BNVA) | payer OTHER, SELFPAY | PROVIDERS: PCP Internal Medicine Medical Oncology; Visit Provider Surgery | DX: R19.7 Diarrhea, unspecified (principal); Z48.815 Encounter for surgical aftercare following surgery on the digestive system; Z90.49 Acquired absence of other specified parts of digestive tract | CPT/HCPCS: 99212 ==

== ENCOUNTER 2024-05-16 12:34 | Outpatient (REF) | payer OTHER, SELFPAY ==
--- NOTE | ~2024-05-16 | MM_ITS ---
EXAMINATION: MM SCREENING DIGITAL BREAST TOMOSYNTHESIS, BILATERAL CLINICAL INFORMATION: Screening. Asymptomatic. COMPARISON: Mammography: Comparison is made with available priors TECHNIQUE: Digital breast mammography with tomosynthesis is performed in both the craniocaudal and mediolateral oblique views along with computer-aided detection (CAD). FINDINGS: There are scattered areas of fibroglandular density (ACR BI-RADS breast composition Category b). There are no significant masses, abnormal calcifications, or other abnormalities. MM/MM tomosynthesis screening BI IMPRESSION: No mammographic evidence of malignancy. ASSESSMENT: BI-RADS BI-RADS 1 - Negative RECOMMENDATION: Routine annual mammography screening. 1 year F/U This examination should not preclude the clinical evaluation of a suspicious palpable abnormality. This patient's information was entered into a reminder system with a target due date for their next mammogram. Electronically signed by: Tammy Weaver DO 06/01/2024 06:41 PM EDT
== END 2024-05-16 12:35 | disposition home or self-care (01) ==
LOC: HO.MAMMO 12:34
PROVIDERS: PCP Internal Medicine Medical Oncology; Visit Provider Obstetrics & Gynecology
DX: Z12.31 Encounter for screening mammogram for malignant neoplasm of breast (principal)
CPT/HCPCS: 77063; 77067

== ENCOUNTER → 2024-05-16 12:45 | Outpatient (BNV) | payer OTHER, SELFPAY | PROVIDERS: PCP Internal Medicine Medical Oncology; Visit Provider Internal Medicine | DX: Z12.31 Encounter for screening mammogram for malignant neoplasm of breast (principal) | CPT/HCPCS: 77063; 77067 ==

== ENCOUNTER 2024-05-22 10:26 | Outpatient (AMB) | payer OTHER, SELFPAY ==
[2024-05-22 10:27] VITALS: BMI 19.4
--- NOTE | 2024-05-22 10:27 | A.OFFVIS_ITS ---
Vital Signs 05/22/24 10:27 Height 5 ft 2 in Weight 105 lb 13.15 oz BMI 19.4 Intake Visit Reasons: MRI and U/S results Appeals Reviewer Veteran Required: No Information Interpreted: non-clinical & clinical Accompanied by: Self / Same As Patient Allergies amoxicillin [From Augmentin] Allergy (Intermediate, Verified 05/22/24 10:29) Vomiting clavulanic acid [From Augmentin] Allergy (Intermediate, Verified 05/22/24 10:29) Vomiting nitrofurantoin Adverse Reaction (Severe, Verified 05/22/24 10:29) Shortness of Breath Post menopausal: Yes HPI Comments Details: Presenting for follow-up pelvic MRI and endometrial biopsy regarding pos tmenopausal bleeding. Doing well with no complaints. No vaginal bleeding. 04/15 pelvic ultrasound showed the following: IMPRESSION: 1. Normal ultrasound of uterus. 2. Normal right and left ovary. 3. Thick-walled hypervascular structure in the left adnexa measuring 2.6 x 2.8 x 1.5 cm. This correlates to the rim-enhancing structure in the left adnexa on CT abdomen pelvis April 15, 2024. Given the acute process of the adjacent sigmoid colon, this is likely a small abscess in the pelvis. A tubo-ovarian abscess is less likely. Pelvic MRI showed suspected pelvic mass otherwise no suspicious findings Endometrial biopsy pathology showed the following: Endometrium, biopsy: Superficial strips of benign endometrial and endocervical epithelium; no atypia identified PFSH Medical History Hx of sigmoidoscopy Pyelonephritis Nephrolithiasis Ureterolithiasis Insomnia History of hypertension Tobacco dependence Urinary incontinence Lumbar spinal stenosis Cervical spondylosis Lumbar radiculopathy Fibromyalgia Degenerative joint disease of spine Surgical History S/P laparoscopic colectomy (04/21/24) H/O colonoscopy History of facial surgery History of salpingectomy History of hip surgery History of right knee surgery Family History Father Esophageal cancer Mother Diabetes mellitus Maternal Grandfather Diabetes mellitus Social History Household Members: Family Household Members Other:: Patient lives by herself Housing: House Do you presently have visiting nurse or other home services: No Alcohol intake: current Alcohol intake frequency: 3 or more drinks per day Alcohol type: beer Patient Tobacco Use Status: Current everyday Tobacco user Tobacco use type: Cigarette Cigarette Packs Per Day: 1 Cigarettes Per Day: 20.0 Years Smoked: 30 Substance Use Type: Marijuana Advance Directives Date on File: 05/28/23 service: No Sexual orientation: Straight/Heterosexual Gender identity: Female Review of Systems Const All systems reviewed & are unremarkable except as noted in HPI and below Reports as per HPI and Reports no additional complaints GI Reports no additional complaints Reports no additional complaints Physical Exam Vital Signs: BMI result Body Mass Index 19.4 Assessment & Plan Assessment & Plan (1) Rectal mass: Comment: By MRI Code(s): K62.89 - Other specified diseases of anus and rectum Category: Medical Plan: Discussed with the patient the MRI finding possible rectal mass, no other suspicious findings. Since the patient is status post laparoscopic colectomy for diverticular abscess will refer to Dr. Garnett for follow-up regarding MRI finding (2) Postmenopausal bleeding: Code(s): N95.0 - Postmenopausal bleeding Category: Medical Plan: Discussed with the patient the results of the endometrial biopsy showing inactive endometrium. Discussed with the patient the sensitivity, specificity, positive and negative predictive value, of endometrial biopsy in detecting endometrial pathology including but not limited to endometrial hyperplasia, cancer and other pathology; instructed the patient to call in case vaginal bleeding bleeding recurs, the next step will be to proceed with a diagnostic hysteroscopy/D&C for further endometrial sampling evaluation to rule out endometrial pathology. All questions answered and the patient verbalized understanding and agreed with the plan. Coding Level of Care Code Est Pt Level 3 (94054) Diagnoses Rectal mass K62.89 Postmenopausal bleeding N95.0
== END 2024-05-22 12:47 | disposition home or self-care (01) ==
PROVIDERS: PCP Internal Medicine Medical Oncology; Visit Provider Obstetrics & Gynecology
DX: K62.89 Other specified diseases of anus and rectum (principal); N95.0 Postmenopausal bleeding
CPT/HCPCS: 99213

== ENCOUNTER → 2024-05-22 10:26 | Outpatient (BNVA) | payer OTHER, SELFPAY | PROVIDERS: PCP Internal Medicine Medical Oncology; Visit Provider Obstetrics & Gynecology | DX: N95.0 Postmenopausal bleeding (principal); K62.89 Other specified diseases of anus and rectum | CPT/HCPCS: 99212 ==

== ENCOUNTER 2024-06-06 11:07 | Outpatient (AMB) | payer OTHER, SELFPAY ==
--- NOTE | 2024-06-06 11:09 | MHC.OFFVIS ---
Vital Signs 06/06/24 11:18 Height 5 ft 2 in Weight 113 lb BMI 20.7 BP 109/71 Blood Pressure Location Lt brachial Position Sitting Pulse 82 Intake Visit Reasons: one month s/p Colon Resection Laparoscopic Intake Note: Patient is seen in office for one month follow up visit, post laparoscopic colon resection. 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: No Accompanied by: Family/Other Allergies amoxicillin [From Augmentin] Allergy (Intermediate, Verified 06/06/24 11:12) Vomiting clavulanic acid [From Augmentin] Allergy (Intermediate, Verified 06/06/24 11:12) Vomiting nitrofurantoin Adverse Reaction (Severe, Verified 06/06/24 11:12) Shortness of Breath Medication List - Last Reconciled 06/06/24 by Tony Garnett MD albuterol sulfate 90 mcg/actuation (Ventolin HFA) 2 puffs inhalation RQ4H PRN calcium carbonate (Oyster Shell Calcium) 500 mg PO BID cholecalciferol (vitamin D3) 25 mcg PO DAILY loperamide (Imodium A-D) 2 mg PO Q6H PRN metoprolol tartrate 12.5 mg (1/2 x 25 mg) PO BID mirabegron ER (Myrbetriq) 50 mg PO DAILY 90 days nystatin 500,000 units (5 mL) PO QID 11 days ondansetron 4 mg PO Q8H PRN oxycodone 5 mg PO Q4H PRN valsartan 20 mg See Protocol PO BID HPI Comments Details: Patient returns for postop visit following hand assisted laparoscopic sigmoid colectomy for a perforated sigmoid colon with abscess on 04/21/2024. Since her last visit she notes continued pain in the right lower quadrant and loose stool. She denies nausea or vomiting. She was evaluated by Dr. Mandujano and an MRI performed. This revealed a suspected rectal mass incompletely imaged on this non-targeted study. The images of this study are not available to time of this visit. [facility] Medical History Hx of sigmoidoscopy Pyelonephritis Nephrolithiasis Ureterolithiasis Insomnia History of hypertension Tobacco dependence Urinary incontinence Lumbar spinal stenosis Cervical spondylosis Lumbar radiculopathy Fibromyalgia Degenerative joint disease of spine Surgical History S/P laparoscopic colectomy (04/21/24) H/O colonoscopy History of facial surgery History of salpingectomy History of hip surgery History of right knee surgery Family History Father Esophageal cancer Mother Diabetes mellitus Maternal Grandfather Diabetes mellitus Social History Household Members: Family Household Members Other:: Patient lives by herself Housing: House Do you presently have visiting nurse or other home services: No Alcohol intake: current Alcohol intake frequency: 3 or more drinks per day Alcohol type: beer Patient Tobacco Use Status: Current everyday Tobacco user Tobacco use type: Cigarette Cigarette Packs Per Day: 1 Cigarettes Per Day: 20.0 Years Smoked: 30 Substance Use Type: Marijuana Advance Directives Date on File: 05/28/23 service: No Sexual orientation: Straight/Heterosexual Gender identity: Female Physical Exam Vital Signs: Last Vital Signs Pulse 82 06/06/24 11:18 BP 109/71 06/06/24 11:18 BMI result Body Mass Index 20.7 Const General: comfortable and anxious Nutritional Appearance: thin Orientation/consciousness: patient oriented x3 Resp Effort & Inspection: normal respiratory effort GI Other: Well-healed lower midline incision and Pfannenstiel incision, tender right lower quadrant adjacent to the incision with light palpation. No palpable hernia noted with Valsalva maneuvers. No evidence of wound infection. Neuro General: patient oriented x3 Extrem Other: No edema Assessment & Plan Assessment & Plan (1) S/P laparoscopic colectomy: Onset Date: 04/21/24 Comment: Hand assisted laparoscopic sigmoid colectomy, colorectal anastomosis, drainage of abscess, extensive lysis of adhesions- Tony Garnett MD Code(s): Z90.49 - Acquired absence of other specified parts of digestive tract Category: Surgical (2) Rectal mass: Comment: By MRI Code(s): K62.89 - Other specified diseases of anus and rectum Category: Medical Plan Patient with a recent MRI of the pelvis which revealed evidence of rectal thickening which was partially imaged in his non targeted study. Given that she is postoperative from a sigmoid colectomy with colorectal anastomosis, this is most likely due to postoperative changes. I recommended further evaluation with a CT abdomen and pelvis with contrast with compare with prior studies. She will return following the study to review the results and discuss treatment options. Orders: Orders CT abdomen pelvis w IV con Today K62.89 - Other specified diseases of anus and rectum, Z90.49 - Acquired absence of other specified parts of digestive tract Coding Level of Care Code Global (50706) Diagnoses S/P laparoscopic colectomy Z90.49 Rectal mass K62.89
[2024-06-06 11:18] VITALS: BP 109/71; PULSE 82; BMI 20.7
== END 2024-06-06 11:37 | disposition home or self-care (01) ==
PROVIDERS: PCP Internal Medicine Medical Oncology; Visit Provider Surgery
DX: Z90.49 Acquired absence of other specified parts of digestive tract (principal); K62.89 Other specified diseases of anus and rectum
CPT/HCPCS: 99024

== ENCOUNTER → 2024-06-06 11:07 | Outpatient (BNVA) | payer OTHER, SELFPAY | PROVIDERS: PCP Internal Medicine Medical Oncology; Visit Provider Surgery | DX: K62.89 Other specified diseases of anus and rectum (principal); Z90.49 Acquired absence of other specified parts of digestive tract | CPT/HCPCS: 99212 ==

== ENCOUNTER 2024-07-22 13:54 | Outpatient (REF) | payer OTHER, SELFPAY ==
--- NOTE | ~2024-07-22 | CT_ITS ---
EXAMINATION: CT ABDOMEN AND PELVIS WITH CONTRAST CLINICAL INFORMATION: Other specified diseases of anus and rectum. Status post sigmoid colectomy and colorectal anastomosis. Rectal mass noted on MRI. COMPARISON: CT dated April 15, 2024 TECHNIQUE: Multidetector volumetric images were obtained from the superior aspect of the liver through the pubic symphysis following administration 80 mL of Omnipaque 350 intravenous contrast without reported immediate complications. Sagittal and coronal reformatted images were obtained on the technologist's workstation. Oral contrast: No This CT examination was performed using dose optimization techniques as appropriate, variously including the following: *Automated exposure control *Adjustment of mA and/or kV according to patient size (this includes techniques or standardized protocols for targeted exams where dose is matched to indication/reason for exam; i.e. extremities or head) *Use of iterative reconstruction technique DLP: 225 mGy-cm FINDINGS: Submitted for interpretation on July 31, 2024. LIVER, GALLBLADDER, AND BILIARY TREE: Liver measures 15 cm. No focal mass. Decreased enhancement pattern. Portal veins and hepatic veins are patent. Intrahepatic portion of the IVC is patent. No intrahepatic or extrahepatic biliary ductal dilatation. Gallbladder is contracted. No pericholecystic fluid collection or gallbladder wall thickening. PANCREAS: No focal pancreatic mass or peripancreatic fluid collection. No main pancreatic ductal dilatation. There is a focal calcification in the midportion of the splenic artery. SPLEEN: 6 cm. No focal mass. ADRENAL GLANDS: No nodular lesions. KIDNEYS AND URETERS: Normal enhancement pattern without gross renal mass or hydronephrosis. Subcentimeter cyst both kidneys. BLADDER: Fluid-filled. GASTROINTESTINAL TRACT: Sutures at the rectosigmoid colon demonstrated Fluid-filled pre and post anastomotic site without gross enhancing lesion. Few scattered diverticula in the sigmoid colon. No intestinal obstruction pattern. No ascites. No pneumoperitoneum. No pneumatosis intestinalis. No peripheral enhancing fluid collections in the peritoneal cavity. Appendix is normal. ABDOMINAL WALL: Post surgical/treatment changes at infraumbilical midline laparotomy incision without fluid collection. LYMPH NODES: Nonspecific prominent mesenteric lymph nodes. VASCULAR: Calcified plaques throughout the abdominal aorta wall and iliac arteries without aneurysm or dissection. Calcified plaques in the proximal main renal arteries and mesenteric arteries. PELVIC VISCERA: No gross masses in the adnexa or the uterus. OSSEOUS STRUCTURES: Osteopenia versus osteoporosis. Multilevel thoracolumbar spondylosis. Grade 1 anterolisthesis L4-5 on a degenerative basis resulting in bilateral neuroforamina stenosis. Fatty replaced bone marrow in the sacrum. No gross lytic or blastic lesions. CT/CT abdomen pelvis w IV con IMPRESSION: Post surgical/treatment changes at the rectosigmoid colon and anastomosis without gross mass at the anastomotic site or gross lymphadenopathy. Fleischner guidelines were followed. Electronically signed by: Asim Moralez MD 07/31/2024 10:13 AM CHUCK
[2024-07-22] MEDS: iohexoL 350 MG/ML 100 ML INFUS..BTL IV (16:49)
[2024-07-22] MEDS: Barium Sulfate Oral (Berry) 450 ML ORAL.SUSP 900 ML PO (16:49)
[2024-07-23 11:15] LABS: Creatinine POC 0.8 mg/dL (0.5-1.4); GFR POC > 60
== END 2024-07-22 13:55 | disposition home or self-care (01) ==
LOC: HO.CT 13:54
PROVIDERS: PCP Internal Medicine Medical Oncology; Referring Provider Obstetrics & Gynecology; Visit Provider Surgery
DX: K62.89 Other specified diseases of anus and rectum (principal); Z90.49 Acquired absence of other specified parts of digestive tract
CPT/HCPCS: 74177; 82565; Q9967

== ENCOUNTER → 2024-07-22 13:56 | Outpatient (BNV) | payer OTHER, SELFPAY | PROVIDERS: PCP Internal Medicine Medical Oncology; Referring Provider Obstetrics & Gynecology; Visit Provider Radiology Diagnostic Radiology | DX: K62.89 Other specified diseases of anus and rectum (principal) | CPT/HCPCS: 74177 ==

== ENCOUNTER 2024-11-20 12:06 | Outpatient (REF) | payer OTHER, SELFPAY ==
--- NOTE | ~2024-11-20 | XR_ITS ---
EXAMINATION: XR HAND 3 OR MORE VIEWS RIGHT HISTORY: PAIN IN RIGHT HAND COMPARISON: There are no prior studies available for comparison. FINDINGS: Three views of the right hand are submitted. The bones are osteopenic. There are fractures of the bases of the proximal phalanges of the index and middle fingers and the middle phalanx of the ring finger. The fracture lines are not well-defined and there is callus formation suggesting subacute fractures. 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 The soft tissues are unremarkable. XR/XR hand RT min 3V IMPRESSION: Osteopenia. Findings suggestive of subacute fractures of the bases of the index and middle fingers and the middle phalanx of the ring finger. Clinical correlation is recommended. Electronically signed by: Paresh Dennis MD 11/20/2024 12:44 PM EDT
--- OUTSIDE RECORDS SUMMARY | 2024-11-20 15:31 | XMS_ITS ---
Author Organization Paresh Strong III, MD Address [address] [facility] [address] Care Team Providers Care Residential Lawn Specialist Name Role Phone Paresh Strong Primary Care Provider [phone] Allergies Allergen (clinical drug ingredient) Drug/Non Drug Allergy documented on EMR Reaction Allergy Type Onset Date Status amoxicillin / clavulanate Augmentin vomiting Drug Allergy Active Results Component Value Reference Range Notes URINE DIP STICK Reviewed date:11/20/2024 11:53:00 AM Interpretation: Performing Lab: Notes/Report: SG 1.005 1.005 - 1.025 pH 5.0 5.0 - 9.0 MOHAMUD 15 + - Negative - NIT Negative Negative - PRO 15 Negative - Trace GLU Negative Negative - KET 5 Negative - UBG 0.2 0.1 - 1.8 CHI Negative 0.2 - 1.3 BLD +++ Negative - Menstrating No XR hand RT min 3V (Not yet r eviewed by provider) Interpretation: Performing Lab: Notes/Report: [address] [address] XRay Report Signed Patient: Cathie Thakkar MR#: [id number] 0 : 1965 Acct:[id number] Age/Sex: 59 / F ADM Date: 11/20/24 Loc: [facility] Attending Dr: Paresh Strong MD Ordering Physician: Paresh Strong MD Date of Service: 11/20/24 Procedure(s): XR hand RT min 3V Accession Number(s): [id number] cc: Paresh Strong MD EXAMINATION: XR HAND 3 OR MORE VIEWS RIGHT HISTORY: PAIN IN RIGHT HAND COMPARISON: There are no prior studies available for comparison. FINDINGS: Three views of the right hand are submitted. The bones are osteopenic. There are fractures of the bases of the proximal phalanges of the index and middle fingers and the middle phalanx of the ring finger. The fracture lines are not well-defined and there is callus formation suggesting subacute fractures. 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 The soft tissues are unremarkable. XR/XR hand RT min 3V IMPRESSION: Osteopenia. Findings suggestive of subacute fractures of the bases of the index and middle fingers and the middle phalanx of the ring finger. Clinical correlation is recommended. 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 FINDINGS: Three views of the r ight hand are submitted. The bones are osteopenic. There are fractures of the bases of the proximal phalanges of the index and middle fin gers and the middle phalanx of the ring finger. The fracture lines are n ot well-defined and there is callus formation suggesting subacute fractures. There is moderate osteoarthritis of the PIP joint of the rin g finger. The soft tissues are unremarkable. X R/XR hand RT min 3V IMPRESSION: Osteopenia. Findings suggestive of subacute fractures of the bases of the index and middle fingers and the middle phalanx of the ring finger. Clinical correlation is recommended. Electronically laurie d by: Paresh Dennis MD 11/20/2024 12:44 PM EDT Dictated By: Paresh Dennis MD Signed By: <Cindy ceron signed by Paresh Dennis MD in OV> 11/20/24 1244 DD/ 1219 TD/TT: 11/20/24 1225 Sheet Metal Duct Installer: Reason For Referral Reason Evaluate and Treat Right Hand Pain ? Fracture of Fingers 2,3 & 4 Diagnosis 1 Right hand pain (M79 .641) Referral Organization Paresh Strong III, MD Referring Provider First Name Paresh Referring Provider Last Name Tae Referring Provider Speciality Internal M edicine Referred Provider Kalina De La Torre Referred Provider Specialty Hand Surgery Referral Priority Routine REASON FOR VISIT Annual Exam, Right knee weakness loose balance, Rapid palpitations, zerbe Medications Medication SIG (Take, Route, Frequency, Duration) Notes Start Date End Date Status Vitamin D3 25 MCG (1000 UT) TAKE ONE TAB LET BY MOUTH EVERY DAY Active Myrbetriq 50 MG TAKE ONE TABLET BY M OUTH EVERY DAY Oral Active Nystatin 372366 UNIT/ML TAKE 5ML BY MOUT H 4 TIMES A DAY FOR 11 DAYS Mouth/Throat Active Ondansetron 4 MG DISSOLVE ONE TABLET BY MOUTH EVERY 8 HOURS NEEDED FOR NAUSEA AND VOMITING Oral Active Valsartan 40 MG 1/2 tablet Orally Tw ice a day Active Metoprolol Tartrate 25 MG TAKE ONE HALF TABLET BY MOUTH TWICE DAILY Oral Twice a day Active Oyster Shell Calcium 500 MG TAKE ONE TAB LET BY MOUTH TWICE A DAY DIRECTED Active Ventolin HFA 108 (90 Base) MCG/ACT two puffs Inhalation every 4 hrs for shortness of breath 05/08/2024 Active Social History Tobacco Use: Social History Observation Description Date Details (start date - stop date) Current Smoker NA - NA Sex Assigned At : Social History Observation Description Sex Assigned At Female Tobacco Control (Standard) Question Answer Notes Tobacco use: Current smoker How often do you smoke cigarettes? Every day How many cigarettes a day do you smoke? 6-10 How soon after you wake up d o you smoke your first cigarette? 6-30 minutes Are you interested in quitting? Not ready to anthony t Additional Findings: Tobacco user Modera te cigarette smoker (10-19 cigs/day) AUDIT-C (Standard) Question Answer Notes Did you have a drink contain ing alcohol in the past year? Yes How often did you have six o r more drinks on one occasion in the past year? 2 to 4 times a month (2 points) How many drinks did you have on a typical day when you were drinking in the past year? 10 or more drinks (4 points) How often did you have a dri nk containing alcohol in the past year? 2 to 4 times a month (2 points) Points 8 Interpretation Positive Vital Signs Temperature 97.5 degrees Fahrenheit 11/21/19 25 Blood pressure systolic 103 mm Hg 11/21/19 25 Blood pressure diastolic 64 mm Hg 025 Heart Rate 74 /min 11/20/2024 Height 62 in 11/20/2024 Weight 116 lbs 11/20/2024 BMI 21.21 kg/m2 11/20/2024 Encounters Encounter Location Date Provider Diagnosis Paresh Strong III, MD [address] [place] [address] [place] [id number] 11/20/2024 Paresh Strong Essential hypertensi on I10 ; Pain in right hand M79.641 ; Hyperlipidemia E78.5 ; Underweight R63.6 and Annual physical exam Z00.00 Assessments Encounter Date Diagnosis (ICD Code) Assessment Notes Treat ment Notes Treatment Clinical Notes 11/20/2024 Essential hypertension (ICD-10 - I10) Her blood presssure today iss 120/75. No change in her regimen is needed. 11/20/2024 Pain in right hand (ICD-10 - M79.641) 11/20/2024 Hyperlipidemia (ICD-10 - E78.5) 11/20/2024 Underweight (ICD-10 - R63.6) 11/20/2024 Annual physical exam (ICD-10 - Z00.00) Plan Of Treatment Medication Medication Name Sig Start Date Stop Date Notes Vitamin D3 25 MCG (1000 UT) TAKE ONE TAB LET BY MOUTH EVERY DAY Myrbetriq 50 MG TAKE ONE TABLET BY M OUTH EVERY DAY Oral Nystatin 999786 UNIT/ML TAKE 5ML BY MOUT H 4 TIMES A DAY FOR 11 DAYS Mouth/Throat Ondansetron 4 MG DISSOLVE ONE TABLET BY MOUTH EVERY 8 HOURS NEEDED FOR NAUSEA AND VOMITING Oral Valsartan 40 MG 1/2 tablet Orally Tw ice a day Metoprolol Tartrate 25 MG TAKE ONE HALF TABLET BY MOUTH TWICE DAILY Oral Twice a day Oyster Shell Calcium 500 MG TAKE ONE TAB LET BY MOUTH TWICE A DAY DIRECTED Ventolin HFA 108 (90 Base) MCG/ACT two puffs Inhalation every 4 hrs for shortness of breath 05/08/2024 Pending Test Test Name Order Date PROFILE, FASTING (COMPREHENSIVE METABOLI C) 11/20/2024 CBC w DIFF 11/20/2024 Lipid Panel 11/20/2024 XR hand RT min 3V 11/20/2024 Referrals Referral Date Details 11/20/2024 11/20/2024, Evaluate and Treat Right Hand Pain ? Fracture of Fingers 2,3 & 4, Kalina De La Torre Next Appt Details Follow Up: 3 Months, Reason: OV Provider Name:Paresh Strong, 11/27/2024 11:30:00 AM, [address] [place] [address] [address], [place], [id number], Provider Name:Paresh Strong, 02/20/2025 11:00:00 AM, [address] [place] [address] [address], [place], [phone], Provider Name:Paresh Strong, 11/24/2025 11:00:00 AM, [address] [place] [address] [address], [place], [phone], Progress Notes * Cathie THAKKAR CDOB:[birth year] (59 yo F)Acc No.[id number]:11/20/2024 Progress Notes Patient:?Cathie THAKKAR C Provider:?Paresh Strong MD :1965???Age:59 Y???Sex:Female D ate:11/20/2024 Address:[address] [place] [address] [id number] Subjective: * Chief Complaints: * ???1. Annual Exam. 2. Right knee weakness loose balance. 3. Rapid palpitations. 4. Zerbe. * HPI: ???Depression Screening:?PHQ-9?Little interest or pleasure in doing things?More than half the days ?Feeling down, depressed, or hopeless?More than half the days ?Trouble falling or staying asleep, or sleeping too much?More than half the days ?Feeling tired or having little energy?More than half the days ?Poor appetite or overeating?More than half the days ?Feeling bad about yourself or that you are a failure, or have let yourself or your family down?More than half the days ?Trouble concentrating on things, such as reading the newspaper or watching television?Not at all ?Moving or speaking so slowly that other people could have noticed; or the opposite, being so fidgety or restless that you have been moving around a lot more than usual?Not at all ?Thoughts that you would be better off or of hurting yourself in some way?Not at all ?Total Score?12 ?Interpretation?Moderate Depression ???COVID-19 Screening:?r hand ? fz. still diarrhea, ct no findings, has roids, urine ok? wears pads 12 a day, ad, back hurts, sharp pin down legs. ?Questions?Have you had any new onset fever, chills, cough, congestion, sore throat, shortness of breath, muscle aches??No ???SDOH Questions:?SDOH Questions?In the past year have you been worried about losing your housing??No ?In the past year have you or any family members you live with been unable to get any of the following when it was really needed? Check all that apply:?None * ROS:?General/Constitutional:?pain?only normal aches and pains.?Chills?denies.?Fatigue?admits.?Fever?denies.?ENT:?Decreased hearing?denies.?Respiratory:?Cough?denies.?Cardiovascular:?Chest pain with exertion?denies.?Dyspnea on exertion?denies.?Shortness of breath?denies.?Gastrointestinal:?Constipation?denies.?Decreased appetite?denies.?Diarrhea?denies.?Heartburn?denies.?Nausea?denies.?Rectal bleeding?denies.?Vomiting?denies.?Hematology:?bruising?denies.?petechiae?denies.?Swollen glands?none have been noted.?Genitourinary:?Frequent urination?denies.?Musculoskeletal:?Muscle aches?denies.?Painful joints?denies.?Sciatica?denies.?Weakness?denies.?Skin:?Itching?denies.?Rash?denies.?Skin lesion(s)?denies.?Neurologic:?Difficulty speaking?denies.?Dizziness?denies.?Headache?denies.?Low back pain?denies.?Psychiatric:?Depressed mood?denies.? * Medical History:?Disabled fr om degenerative disease of the spine, Fibromyalgia, Lumbar radiculopathy, Cervical spondylosis, Lumbar spinal stenosis, Urinary incontinence, History of pyelonephritis, Frequent urinary tract infections, Allergic to Augmentin, Urinary incontinence, Tobacco dependence, History of hypertension, Insomnia, Last menstrual period 2014, History of ureterolithiasis. * Surgical History:?Facial rec onstruction , Right knee patella reconstruction , Bilateral hip surgery , Etopic , right salpingectomy , History of colonoscopy , Last menstrual period 2014 , Sigmoid Colectomy 04/2024. * Hospitalization/Major Diagno stic Procedure:?Denies Past Hospitalization. * Family History:?Father: dece ased, diagnosed with Cancer.?Mother: alive, Diabetes mellitus, diagnosed with DM.?1 brother(s) - healthy. 1 son(s) , 2 daughter(s) - healthy. .? Her mother and grandmother had diabetes. There is no history of coronary artery disease. She is not aware of any family history of mental illness or substance use disorder. * Social History:?Tobacco Use:?Tobacco Control (Standard)?Tobacco use:?Current smoker ?How often do you smoke cigarettes??Every day ?How many cigarettes a day do you smoke??6-10 ?How soon after you wake up do you smoke your first cigarette??6-30 minutes ?Are you interested in quitting??Not ready to quit ?Additional Findings: Tobacco user?Moderate cigarette smoker (10-19 cigs/day) ???Drugs/Alcohol:?Drugs?Have you used drugs other than those for medical reasons in the past 12 months??Yes ?Marijuana??Yes ???Drug/Alcohol:?AUDIT-C (Standard)?Did you have a drink containing alcohol in the past year??Yes ?How often did you have six or more drinks on one occasion in the past year??2 to 4 times a month (2 points) ?How many drinks did you have on a typical day when you were drinking in the past year??10 or more drinks (4 points) ?How often did you have a drink containing alcohol in the past year??2 to 4 times a month (2 points) ?Points?8 ?Interpretation?Positive ???She was born in [place], [place]. She moved to [place] at the age of 53 and has just returned due to the of Kyle,a significant other, from esophageal cancer. She has 3 children, Shayne 40, Mariana 36, Nyasia 33. She has 10 grandchildren. She is unemployed and disabled at this time due to degenerative disease of the spine. She is now single. * Medications:?Taking Oyster S hell Calcium 500 MG Tablet TAKE ONE TABLET BY MOUTH TWICE A DAY DIRECTED , Taking Nystatin 786519 UNIT/ML Suspension TAKE 5ML BY MOUTH 4 TIMES A DAY FOR 11 DAYS Mouth/Throat , Taking Ondansetron 4 MG Tablet Disintegrating DISSOLVE ONE TABLET BY MOUTH EVERY 8 HOURS NEEDED FOR NAUSEA AND VOMITING Oral , Taking Myrbetriq 50 MG Tablet Extended Release 24 Hour TAKE ONE TABLET BY MOUTH EVERY DAY Oral , Taking Vitamin D3 25 MCG (1000 UT) Tablet TAKE ONE TABLET BY MOUTH EVERY DAY , Taking Valsartan 40 MG Tablet 1/2 tablet Orally Twice a day , Taking Ventolin HFA 108 (90 Base) MCG/ACT Aerosol Solution two puffs Inhalation every 4 hrs for shortness of breath , Taking Metoprolol Tartrate 25 MG Tablet TAKE ONE HALF TABLET BY MOUTH TWICE DAILY Oral Twice a day , Medication List reviewed and reconciled with the patient * Allergies:?Augmentin: vomiti ng. Objective: * Vitals:?Ht: 62, Wt: 116, BMI :21.21, BP: 103/64, HR: 74, Temp: 97.5, Wt-k.62. * Examination: ???General Examination: ?GENERAL APPEARANCE:?pleasant, well nourished, well developed, in no acute distress, calm and relaxed.?HEAD:?atraumatic, normocephalic.?EYES:?eomi, perrla, anicteric, conjugate.?EARS:?normal.?NOSE:?septum intact.?ORAL CAVITY:?normal, unremarkable.?NECK/THYROID:?no jugular venous distention, no carotid bruit, thyroid normal.?LYMPH NODES:?no enlarged lymph nodes,spleen normal.?SKIN:?no suspicious lesions, anicteric.?HEART:?no clicks, gallops, murmurs, or rubs, regular rhythm, S1, S2 normal, no s3, or vascular bruits.?LUNGS:?clear to auscultation .?BREASTS:??no masses palpable bilaterally.?ABDOMEN:?bowel sounds normal, no ascites, no organomegaly, no mass.?RECTAL EXAM:?not examined.?MUSCULOSKELETAL:?extremities unremarkable, no clubbing, cyanosis or edema.?PERIPHERAL PULSES:?normal.?NEUROLOGIC:?alert and oriented, cranial nerves 2-12 grossly intact, deep tendon reflexes 2+ symmetrical, motor strength normal upper and lower extremities, sensory exam intact.?PSYCH:?alert, oriented.? Assessment: * Assessment: 1.?Annual physical exam - Z0 0.00 (Primary)???2.?Essential hypertension - I10???Notes :Her blood presssure today iss 120/75. No change in her regimen is needed.???3.?Pain in right hand - M79.641???4.?Hyperlipidemia - E78.5???5.?Underweight - R63.6??? Plan: * Treatment: ? Value Reference Range ?SG 1.005 1.005 - 1.025 * ?pH 5.0 5.0 - 9.0 * ?MOHAMUD 15 + - Negative - * ?NIT Negative Negative - * ?PRO 15 Negative - Trac e * ?GLU Negative Negative - * ?KET 5 Negative - * ?UBG 0.2 0.1 - 1.8 * ?CHI Negative 0.2 - 1.3 * ?BLD +++ Negative - * ?Menstrating No 2.?Essential hypertension? Continue Myrbetriq Tablet Extended Release 24 Hour, 50 MG, TAKE ONE TABLET BY MOUTH EVERY DAY, Oral;?Continue Vitamin D3 Tablet, 25 MCG (1000 UT), TAKE ONE TABLET BY MOUTH EVERY DAY.?LAB: PROFILE, FASTING (COMPREHENSIVE METABOLIC) ?LAB: CBC w DIFF ?LAB: Lipid Panel3.?Pain in right hand?Imaging: XR hand RT min 3V (Performed Date - 11/20/2024)4.?Hyperlipidemia?LAB: PROFILE, FASTING (COMPREHENSIVE METABOLIC) ?LAB: CBC w DIFF ?LAB: Lipid Panel5.?Underweight?LAB: PROFILE, FASTING (COMPREHENSIVE METABOLIC) ?LAB: CBC w DIFF ?LAB: Lipid Panel6.?Others? Continue Valsartan Tablet, 40 MG, 1/2 tablet, Orally, Twice a day;?Continue Ventolin HFA Aerosol Solution, 108 (90 Base) MCG/ACT, two puffs, Inhalation, every 4 hrs for shortness of breath;?Continue Metoprolol Tartrate Tablet, 25 MG, TAKE ONE HALF TABLET BY MOUTH TWICE DAILY, Oral, Twice a day;?Continue Oyster Shell Calcium Tablet, 500 MG, TAKE ONE TABLET BY MOUTH TWICE A DAY DIR ECTED;?Continue Nystatin Suspension, 861593 UNIT/ML, TAKE 5ML BY MOUTH 4 TIMES A DAY FOR 11 DAYS, Mouth/Throat;?Continue Ondansetron Tablet Disintegrating, 4 MG, DISSOLVE ONE TABLET BY MOUTH EVERY 8 HOURS NEEDED FOR NAUSEA AND VOMITING, Oral.? Referral To:Kalina De La Torre??Hand Surgery ?Reason:Evaluateand Treat Right Hand Pain ? Fracture of Fingers 2,3 & 4 * Procedure Codes:?46079 URINE -NO MICRO * Preventive Medicine:? ??Counseling:?Smoking/Tobacco Use?Patient counseled on the dangers of tobacco use and urged to quit.?11/20/2024 * Follow Up:?3 Months (Reason: OV) * Images: * The named appointment provid er may or may not be the originator of this progress note, and it is not deemed complete until electronically signed by the appointment provider. Sign off status: Pending * Provider:?Paresh Strong MD Date:?11/08 Generated for Sajan roberts/Crystal/Annie on:?11/20/2024 03:30 PM EDT History and Physical Notes * HPI (History of Present Illness) Category Sub-Category Detail Notes Depression Screening PHQ-9 Little inte rest or pleasure in doing things: More than half the days Feeling down, depressed, or hopeless: Mo re than half the days Trouble falling or staying a sleep, or sleeping too much: More than half the days Feeling tired or having little energy: M ore than half the days Poor appetite or overeating: More than h fdc the days Feeling bad about yourself o r that you are a failure, or have let yourself or your family down: More than half the days Trouble concentrating on thi ngs, such as reading the newspaper or watching television: Not at all Moving or speaking so slowly that other people could have noticed; or the opposite, being so fidgety or restless that you have been moving around a lot more than usual: Not at all Thoughts that you would be b lamberto off or of hurting yourself in some way: Not at all Total Score: 12 Interpretation: Moderate Depression COVID-19 Screening Questions Have you had any new onset fever, chills, cough, congestion, sore throat, shortness of breath, muscle aches?: No SDOH Questions SDOH Questions In the past year have you been worried about losing your housing?: No In the past year have you or any family members you live with been unable to get any of the following when it was really needed? Check all that apply:: None Examination Category Sub-Category Detail Notes General Examination GENERAL APPEARANCE: pleasant , well nourished, well developed, in no acute distress, calm and relaxed HEAD: atraumatic, normocep halic EYES: eomi, perrla, anicte china, conjugate EARS: normal NOSE: septum intact NECK/THYROID: no jugular venous di stention, no carotid bruit, thyroid normal HEART: no clicks, gallops, murmurs, or rubs, regular rhythm, S1, S2 normal, no s3, or vascular bruits LUNGS: clear to auscultatio n ABDOMEN: bowel sounds normal, no ascites, no organomegaly, no mass NEUROLOGIC: alert and oriented, cranial nerves 2-12 grossly intact, deep tendon reflexes 2+ symmetrical, motor strength normal upper and lower extremities, sensory exam intact SKIN: no suspicious lesion s, anicteric PERIPHERAL PULSES: normal BREASTS: no masses palpable b ilaterally MUSCULOSKELETAL: extremities unremark able, no clubbing, cyanosis or edema LYMPH NODES: no enlarged lymph no ami,spleen normal RECTAL EXAM: not examined PSYCH: alert, oriented ORAL CAVITY: normal, unremarkable Consultation Request Notes Referral Date Referring Provider Referred Provider Not es 11/20/2024 Paresh Strong Allison Evaluate and Treat Right Hand Pain ? Fracture of Fingers 2,3 & 4
--- OUTSIDE RECORDS SUMMARY | 2024-11-20 15:31 | XMS_ITS ---
Author Organization Paresh Strong III, MD Address [address] [place] [address] Care Team Providers Care Channel Opener Name Role Phone Paresh Strong Primary Care Provider [phone] REASON FOR VISIT Rx Refill Medications Medication SIG (Take, Route, Frequency, Duration) Notes Start Date End Date Status Ventolin HFA 108 (90 Base) MCG/ACT two puffs Inhalation every 4 hrs for shortness of breath for 90 days 05/08/2024 Active Metoprolol Tartrate 25 MG TAKE ONE HALF TABLET BY MOUTH TWICE DAILY Oral Twice a day for 90 days Active Valsartan 40 MG 1/2 tablet Orally Tw ice a day for 90 days Active Social History Sex Assigned At : Social History Observation Description Sex Assigned At Female Encounters Encounter Location Date Provider Diagnosis Paresh Strong III, MD [address] [place] [address] [place] [address] 08/05/2024 Paresh Strong Plan Of Treatment Medication Medication Name Sig Start Date Stop Date Notes Ventolin HFA 108 (90 Base) MCG/ACT two puffs Inhalation every 4 hrs for shortness of breath for 90 days 05/08/2024 Metoprolol Tartrate 25 MG TAKE ONE HALF TABLET BY MOUTH TWICE DAILY Oral Twice a day for 90 days Valsartan 40 MG 1/2 tablet Orally Tw ice a day for 90 days Next Appt Details Provider Name:Paresh Strong, 11/27/2024 11:30:00 AM, [address] [facility] [place], [address], Provider Name:Paresh Strong, 02/20/2025 11:00:00 AM, [address] [facility] [address] [place], [place], [address], Provider Name:Paresh Strong, 11/24/2025 11:00:00 AM, [address] [place] [address] [address] [place], [place], [address], Progress Notes * RONALDOTRINACathie CDOB:[birth year] (59 yo F)Acc No.[id number]:08/05/2024 Patient:?Cathie THAKKAR C :1965???Age:59 Y???Sex:Female Address:[address] [place] [address], [place], [address] * Refills? Refill Valsartan Tablet, 40 MG, Orally, 90, 1/2 tablet, Twice a day, 90 days, Refills=3 Refill Ventolin HFA Aerosol Solution, 108 (90 Base) MCG/ACT, Inhalation, 1, two puffs, every 4 hrs for shortness of breath, 90 days, Refills=3 Refill Metoprolol Tartrate Tablet, 25 MG, Oral, 90, TAKE ONE HALF TABLET BY MOUTH TWICE DAILY, Twice a day, 90 days, Refills=3 * true * Date:? Generated for Sajan roberts/Crystal/Keenasmitting on:?11/20/2024 03:31 PM EDT
--- OUTSIDE RECORDS SUMMARY | 2024-11-20 15:31 | XMS_ITS | Data Portability ---
Author Organization [place] - [facility], [facility] Address [address] [place] [address] Assessment No assessment recorded. Plan of Treatment Reminders Order Date Submit Date Provider Last Modified By Organization Details Last Modified Time Details Appointments None recorded. Lab CBC 2021 SEE Not available 08:50:12 protein electrophor esis panel, serum or plasma 2021 SEE Not available 08:50:12 ESR (erythrocyt e sedimentati on rate), blood 2021 SEE Not available 08:50:12 vitamin D, 25-hydroxy, total, serum 2021 SEE Not available 08:50:11 hepatic function panel, serum 2021 SEE Not available 08:50:11 urinalysis complete, reflex culture 2021 SEE Not available 08:50:12 BMP, serum or plasma 2021 022 SEE Not available 08:50:12 HIV-1 Ab, serum 2020 021 SEE Not available 15:35:39 hepatitis C Ab, serum 2020 021 SEE Not available 15:35:37 lipid panel, serum 2020 021 SEE Not available 15:35:32 vitamin D, 25-hydroxy, total, serum 2020 SEE Not available 15:35:34 vitamin B12 + folate, serum or blood 2020 SEE Not available 15:35:35 CBC 2020 SEE Not available 15:35:33 urinalysis complete, reflex culture 2020 SEE Not available 15:35:38 CMP, serum or plasma 2020ENA Not available 15:35:36 glycohemogl obin, total, blood 2020ENA Not available 15:35:34 TSH + free T4, serum 2020 SEE Not available 15:35:37 Referral pain management referral - Eval and treat - former patient from [facility] (change due to insurance non-PAR) 2020 [email or web address] 3 [facility], [id number], [place], [address], 08:52:57 Procedures None recorded. Surgeries None recorded. Imaging None recorded. Medication Orders ergocalcife rol (vitamin D2) 1,250 mcg (50,000 unit) capsule 2020 [facility], [id number] [address], [address], 09:11:30 potassium chloride ER 20 mEq tablet,exte nded release(par t/cryst) 2020 [facility], [id number] [address], [address], 09:17:27 cefprozil 250 mg tablet 2020 022 messi servin [facility], [id number] [address], [address], 08:20:45 montelukast 10 mg tablet 2020 021 SEE [facility], [id number] [address], [address], 07:34:28 Patient Targets Encounter Date Encounter Id Patient Goals Patient Target Last Modified By Organization Details Last Modified Time Maintain or improve feelings of good well beingImprove control of chronic pain symptoms Not available 06/03/2021 07:24:52 Alleviate ear symptoms.Allevi ate chronic pain symptoms - establish with new provider.Normal potassium and vitamin D levels.Resolve WBC elevation. Not available 09/12/2021 08:45:23 Patient Instructions Encounter Date Encounter Id Patient Instructions Last Modified By Organization Details Last Modified Time 06/02/2021 [id number] Complete labs, fasting preferred. Patient is advised to call if she does not receive expected referrals or if unable to complete the testing. Not available 06/03/2021 07:26:29 Answered questions regarding the current plan of treatment. Recommend that patient notify us if she encounters any difficulties completing the planned evaluation. Currently no barriers to medications and/or treatment regimen. [email or web address] Not available 06/03/2021 07:26:11 07/01/2021 [id number] Complete labs, fasting preferred, just prior to the next scheduled appointment. [email or web address] Not available 09/12/2021 08:47:24 Medications discussed including proper use, side effects, risks, and benefits and other precautions. Answered questions regarding the current plan of treatment. Recommend that patient notify us if she encounters any difficulties completing the planned evaluation or if there is any intolerance or inability to comply with the recommended medication regimen. Currently no barriers to medications and/or treatment regimen. Not available 09/12/2021 08:47:42 Reason for Referral Pain Management Referral for Chronic pain former provider non-PAR with insurance/ Authorization Ref.#[id number] Eval and treat - former patient from [facility] (change due to insurance non-PAR) Referring Physician: Shima Lees, Family Medicine, Encounter Date: 06/02/2021 Results Created Date Observation Date Name Description Value Unit Range Abnormal Flag Note LastModifiedBy Organization Detail LastModifiedTime 06/02/20 21 06/03/2021 LIPID SCREE N (BASI C LIPID PROFI LE) cholesterol 152 mg/dL <200 Not Available [facility] ([facility]) [address], [place], [address], 06/03/2021 15:35:32 06/02/20 21 06/03/2021 LIPID SCREE N (BASI C LIPID PROFI LE) HDL chol., direct 40 mg/dL >50 low Not Available [facility] ([facility]) [address], [place], [address], 06/03/2021 15:35:32 06/02/20 21 06/03/2021 LIPID SCREE N (BASI C LIPID PROFI LE) triglyceride s 198 mg/dL <150 high Not Available [facility] ([facility]) [address], [place], [address], 06/03/2021 15:35:32 06/02/20 21 06/03/2021 LIPID SCREE N (BASI C LIPID PROFI LE) HDL % of cholesterol 26 % >14 Evalu ation : BELOW AVERA GE RISK Not Available [facility] ([facility]) [address], [place], [address], 06/03/2021 15:35:32 06/02/20 21 06/03/2021 LIPID SCREE N (BASI C LIPID PROFI LE) chol/HDL ratio 3.8 <5.8 Evalu ation : BELOW AVERA GE RISK Not Available [facility] ([facility]) [address], [place], [address], 06/03/2021 15:35:32 06/02/20 21 06/03/2021 LIPID SCREE N (BASI C LIPID PROFI LE) LDL/HDL ratio 1.80 <3.56 Not Available [facility] ([facility]) [address], [place], [address], 06/03/2021 15:35:32 06/02/20 21 06/03/2021 LIPID SCREE N (BASI C LIPID PROFI LE) LDL cholesterol 72 mg/dL <100 Not Available [facility] ([facility]) [address], [place], [address], 06/03/2021 15:35:32 06/02/20 21 06/03/2021 LIPID SCREE N (BASI C LIPID PROFI LE) VLDL, calculated 40 mg/dL 7-32 high Not Available [facility] ([facility]) [address], [place], [address], 06/03/2021 15:35:32 06/02/20 21 06/03/2021 LIPID SCREE N (BASI C LIPID PROFI LE) non-HDL cholesterol 112 mg/dL <130 Not Available [facility] ([facility]) [address], [place], [address], 06/03/2021 15:35:32 06/02/20 21 06/03/2021 CBC W/DIF F, PLATE LET CT. WBC 13.01 x10(3 )/uL 4.00-1 0.10 high Not Available [facility] ([facility]) [address], [place], [address], 06/03/2021 15:35:33 06/02/20 21 06/03/2021 CBC W/DIF F, PLATE LET CT. RBC 3.71 x10(6 )/uL 3.58-5 .19 Not Available [facility] ([facility]) [address], [place], [address], 06/03/2021 15:35:33 06/02/20 21 06/03/2021 CBC W/DIF F, PLATE LET CT. HGB 13.1 g/dL 11.0-1 5.5 Not Available [facility] ([facility]) [address], [place], [address], 06/03/2021 15:35:33 06/02/20 21 06/03/2021 CBC W/DIF F, PLATE LET CT. HCT 36.6 % 31.5-4 4.8 Not Available [facility] ([facility]) [address], [place], [address], 06/03/2021 15:35:33 06/02/20 21 06/03/2021 CBC W/DIF F, PLATE LET CT. MCV 98.7 fL 78.0-9 8.0 high Not Available [facility] ([facility]) [address], [place], [address], 06/03/2021 15:35:33 06/02/20 21 06/03/2021 CBC W/DIF F, PLATE LET CT. MCH 35.3 pg 25.2-3 2.6 high Not Available [facility] ([facility]) [address], [place], [address], 06/03/2021 15:35:33 06/02/20 21 06/03/2021 CBC W/DIF F, PLATE LET CT. MCHC 35.8 g/dL 31.0-3 4.7 high Not Available [facility] ([facility]) [address], [place], [address], 06/03/2021 15:35:33 06/02/20 21 06/03/2021 CBC W/DIF F, PLATE LET CT. RDW 11.5 % 12.0-1 5.5 low Not Available [facility] ([facility]) [address], [place], [address], 06/03/2021 15:35:33 06/02/20 21 06/03/2021 CBC W/DIF F, PLATE LET CT. polys 63.5 % 37.1-7 8.1 Not Available [facility] ([facility]) [address], [place], [address], 06/03/2021 15:35:33 06/02/20 21 06/03/2021 CBC W/DIF F, PLATE LET CT. lymphs 24.8 % 13.7-5 0.9 Not Available [facility] ([facility]) [address], [place], [address], 06/03/2021 15:35:33 06/02/20 21 06/03/2021 CBC W/DIF F, PLATE LET CT. monos 8.6 % 3.0-11 .9 Not Available [facility] ([facility]) [address], [place], [address], 06/03/2021 15:35:33 06/02/20 21 06/03/2021 CBC W/DIF F, PLATE LET CT. eos 2.3 % 0.0-5. 0 Not Available [facility] ([facility]) [address], [place], [address], 06/03/2021 15:35:33 06/02/20 21 06/03/2021 CBC W/DIF F, PLATE LET CT. basos 0.4 % 0.0-1. 0 Not Available [facility] ([facility]) [address], [place], [address], 06/03/2021 15:35:33 06/02/20 21 06/03/2021 CBC W/DIF F, PLATE LET CT. immature granulocytes 0.4 % 0.0-1. 0 Not Available [facility] ([facility]) [address], [place], [address], 06/03/2021 15:35:33 06/02/20 21 06/03/2021 CBC W/DIF F, PLATE LET CT. platelet count 336 x10(3 )/uL 140-42 5 Not Available [facility] ([facility]) [address], [place], [address], 06/03/2021 15:35:33 06/02/20 21 06/03/2021 CBC W/DIF F, PLATE LET CT. MPV 9.4 fL 8.6-12 .1 Not Available [facility] ([facility]) [address], [place], [address], 06/03/2021 15:35:33 06/02/20 21 06/03/2021 HEMOG LOBIN A1C (GLYC OHGB) hemoglobin A1C 4.8 % <5.7 HEMOG LOBIN A1c AND eAG REFER ENCE RANGE S A1c(% ) DIABE GINNA CATEG ORY* <5.7 Cheryle l (non- diabe tic) 5.7-6 .4 Incre ased risk of diabe ginna =>6.5 Consi stent with diabe ginna A1c(% ) eAG(E STIMA WERNER AVERA GE PLASM A GLUCO SE)(m g/dL) 6 126 7 154 8 183 9 212 10 240 11 269 12 298 *andrey mmend ed range s-[facility] n(201 0) NOTE: The amoun t of glyca werner hemog lobin as measu red by the HbA1c test may be overe stima werner in [place] an Ameri cans and shoul d not be used as the sole jaydon eter of glyce gurmeet burde n. Simil joshua, hemol ysis, kenyon ic hemog lobin varia nts and chemi jason modif ied hemog lobin deriv ative s (as seen in renal failu re, smoki ng, aspir in use) may also affec t glyca werner hemog lobin level s. Not Available [facility] ([facility] [address], [place], [address], 06/03/2021 15:35:33 06/02/20 21 06/03/2021 VITAM IN D, 25-HY DROXY , SERUM 25OH, vitamin D 10.3 NG/mL 32.0-1 00.0 low Not Available [facility] ([facility]) [address], [place], [address], 06/03/2021 15:35:34 06/02/20 21 06/03/2021 VITAM IN B12/F OLATE folic acid 16.43 NG/mL >5.38 Folic Acid Range Units (ng/m L) Cheryle l >5.38 Borde rline defic ient 3.38- 5.38 Defic ient 0.35- 3.37 Exces sive >24.0 0 Not Available [facility] ([facility]) [address], [place], [address], 06/03/2021 15:35:35 06/02/20 21 06/03/2021 VITAM IN B12/F OLATE vitamin B12 899 pg/mL 211-91 1 Not Available [facility] ([facility]) [address], [place], [address], 06/03/2021 15:35:35 06/02/20 21 06/03/2021 COMPR EHENS MARISOL METAB OLIC PANEL total protein 7.1 g/dL 5.9-8. 4 Not Available [facility] ([facility]) [address], [place], [address], 06/03/2021 15:35:36 06/02/20 21 06/03/2021 COMPR EHENS MARISOL METAB OLIC PANEL albumin 4.5 g/dL 3.5-5. 2 Not Available [facility] ([facility]) [address], [place], [address], 06/03/2021 15:35:36 06/02/20 21 06/03/2021 COMPR EHENS MARISOL METAB OLIC PANEL globulin 2.6 g/dL 1.7-3. 7 Not Available [facility] ([facility]) [address], [place], [address], 06/03/2021 15:35:36 06/02/20 21 06/03/2021 COMPR EHENS MARISOL METAB OLIC PANEL A/G ratio 1.7 ratio 1.1-2. 9 Not Available [facility] ([facility]) [address], [place], [address], 06/03/2021 15:35:36 06/02/20 21 06/03/2021 COMPR EHENS MARISOL METAB OLIC PANEL sodium 135 mmol/ L 136-14 5 low Not Available [facility] ([facility]) [address], [place], [address], 06/03/2021 15:35:36 06/02/20 21 06/03/2021 COMPR EHENS MARISOL METAB OLIC PANEL potassium 3.4 mmol/ L 3.6-5. 6 low Not Available [facility] ([facility]) [address], [place], [address], 06/03/2021 15:35:36 06/02/20 21 06/03/2021 COMPR EHENS MARISOL METAB OLIC PANEL chloride 91 mmol/ L 96-108 low Not Available [facility] ([facility]) [address], [place], [address], 06/03/2021 15:35:36 06/02/20 21 06/03/2021 COMPR EHENS MARISOL METAB OLIC PANEL CO2 28 mmol/ L 22-29 Not Available [facility] ([facility]) [address], [place], [address], 06/03/2021 15:35:36 06/02/20 21 06/03/2021 COMPR EHENS MARISOL METAB OLIC PANEL BUN 3 mg/dL 6-20 low Not Available [facility] ([facility]) [address], [place], [address], 06/03/2021 15:35:36 06/02/20 21 06/03/2021 COMPR EHENS MARISOL METAB OLIC PANEL creatinine 0.39 mg/dL 0.49-1 .02 low Not Available [facility] ([facility]) [address], [place], [address], 06/03/2021 15:35:36 06/02/20 21 06/03/2021 COMPR EHENS MARISOL METAB OLIC PANEL E-GFR 117 mL/mi n >or=60 Not Available [facility] ([facility]) [address], [place], [address], 06/03/2021 15:35:36 06/02/20 21 06/03/2021 COMPR EHENS MARISOL METAB OLIC PANEL E-GFR, 136 mL/mi n >or=60 Not Available [facility] ([facility]) [address], [place], [address], 06/03/2021 15:35:36 06/02/20 21 06/03/2021 COMPR EHENS MARISOL METAB OLIC PANEL BUN/creat ratio 7.7 ratio 10.0-2 8.0 low Not Available [facility] ([facility]) [address], [place], [address], 06/03/2021 15:35:36 06/02/20 21 06/03/2021 COMPR EHENS MARISOL METAB OLIC PANEL calcium 9.9 mg/dL 8.6-10 .4 Not Available [facility] ([facility]) [address], [place], [address], 06/03/2021 15:35:36 06/02/20 21 06/03/2021 COMPR EHENS MARISOL METAB OLIC PANEL bilirubin, total 0.4 mg/dL <1.2 Not Available [facility] ([facility]) [address], [place], [address], 06/03/2021 15:35:36 06/02/20 21 06/03/2021 COMPR EHENS MARISOL METAB OLIC PANEL alk phos 88 U/L 40-156 Not Available [facility] ([facility]) [address], [place], [address], 06/03/2021 15:35:36 06/02/20 21 06/03/2021 COMPR EHENS MARISOL METAB OLIC PANEL AST 14 U/L <32 Not Available [facility] ([facility]) [address], [place], [address], 06/03/2021 15:35:36 06/02/20 21 06/03/2021 COMPR EHENS MARISOL METAB OLIC PANEL ALT 12 U/L <33 Not Available [facility] ([facility] [address], [place], [address], 06/03/2021 15:35:36 06/02/20 21 06/03/2021 COMPR EHENS MARISOL METAB OLIC PANEL glucose 88 mg/dL 70-99 Not Available [facility] ([facility] [address], [place], [address], 06/03/2021 15:35:36 06/02/20 21 06/03/2021 T4,FR EE + TSH thyroxine, free (FT4) 1.15 NG/dL 0.84-1 .62 Not Available [facility] ([facility]) [address], [place], [address], 06/03/2021 15:35:36 06/02/20 21 06/03/2021 T4,FR EE + TSH TSH 0.506 uIU/m L 0.282- 4.000 Not Available [facility] ([facility]) [address], [place], [address], 06/03/2021 15:35:36 06/02/20 21 06/03/2021 HEPAT ITIS C ANTIB CIERRA W/ REFLE X RT PCR hep C Ab. (S/co ratio) 0.03 <0.80 Not Available [facility] ([facility]) [address], [place], [address], 06/03/2021 15:35:37 06/02/20 21 06/03/2021 HEPAT ITIS C ANTIB CIERRA W/ REFLE X RT PCR hep. C Ab. NON-RE ACTIVE non-re active Not Available [facility] ([facility]) [address], [place], [address], 06/03/2021 15:35:37 06/02/20 21 06/03/2021 URINA LYSIS W/REF ANA ROSA TO CULTU RE specific gravity ur 1.005 1.003- 1.030 Not Available [facility] ([facility]) [address], [place], [address], 06/03/2021 15:35:38 06/02/20 21 06/03/2021 URINA LYSIS W/REF ANA ROSA TO CULTU RE pH urine 6.0 5.0-8. 0 Not Available [facility] ([facility]) [address], [place], [address], 06/03/2021 15:35:38 06/02/20 21 06/03/2021 URINA LYSIS W/REF ANA ROSA TO CULTU RE protein, urine NEGATI VE negati ve Not Available [facility] ([facility]) [address], [place], [address], 06/03/2021 15:35:38 06/02/20 21 06/03/2021 URINA LYSIS W/REF ANA ROSA TO CULTU RE glucose, urine NEGATI VE negati ve Not Available [facility] ([facility]) [address], [place], [address], 06/03/2021 15:35:38 06/02/20 21 06/03/2021 URINA LYSIS W/REF ANA ROSA TO CULTU RE ketone, urine NEGATI VE negati ve Not Available [facility] ([facility]) [address], [place], [address], 06/03/2021 15:35:38 06/02/20 21 06/03/2021 URINA LYSIS W/REF ANA ROSA TO CULTU RE urobilinogen urine 0.2 mg/dL 0.2-1. 0 Not Available [facility] ([facility]) [address], [place], [address], 06/03/2021 15:35:38 06/02/20 21 06/03/2021 URINA LYSIS W/REF ANA ROSA TO CULTU RE bilirubin, urine NEGATI VE negati ve Not Available [facility] ([facility]) [address], [place], [address], 06/03/2021 15:35:38 06/02/20 21 06/03/2021 URINA LYSIS W/REF ANA ROSA TO CULTU RE blood, urine MODERA TE negati ve abnormal Not Available [facility] ([facility]) [address], [place], [address], 06/03/2021 15:35:38 06/02/20 21 06/03/2021 URINA LYSIS W/REF ANA ROSA TO CULTU RE nitrites urine NEGATI VE negati ve Not Available [facility] ([facility]) [address], [place], [address], 06/03/2021 15:35:38 06/02/20 21 06/03/2021 URINA LYSIS W/REF ANA ROSA TO CULTU RE crystals urine NONE none Not Available [facility] ([facility]) [address], [place], [address], 06/03/2021 15:35:38 06/02/20 21 06/03/2021 URINA LYSIS W/REF ANA ROSA TO CULTU RE WBC, urine 0-4 /[hpf ] 0-4 Not Available [facility] ([facility]) [address], [place], [address], 06/03/2021 15:35:38 06/02/20 21 06/03/2021 URINA LYSIS W/REF ANA ROSA TO CULTU RE RBC, urine 2-5 /[hpf ] none seen high Not Available [facility] ([facility]) [address], [place], [address], 06/03/2021 15:35:38 06/02/20 21 06/03/2021 URINA LYSIS W/REF ANA ROSA TO CULTU RE cast, RBC, urine NONE SEEN /[lpf ] 0-1 Not Available [facility] ([facility]) [address], [place], [address], 06/03/2021 15:35:38 06/02/20 21 06/03/2021 URINA LYSIS W/REF ANA ROSA TO CULTU RE cast, hyaline, urine 0-4 /[lpf ] 0-4 Not Available [facility] ([facility]) [address], [place], [address], 06/03/2021 15:35:38 06/02/20 21 06/03/2021 URINA LYSIS W/REF ANA ROSA TO CULTU RE epithelial cells, ur FEW none-f ew Not Available [facility] ([facility]) [address], [place], [address], 06/03/2021 15:35:38 06/02/20 21 06/03/2021 URINA LYSIS W/REF ANA ROSA TO CULTU RE cast, granular, ur NONE SEEN /[lpf ] 0-1 Not Available [facility] ([facility]) [address], [place], [address], 06/03/2021 15:35:38 06/02/20 21 06/03/2021 URINA LYSIS W/REF ANA ROSA TO CULTU RE bacteria, urine NONE none-f ew Not Available [facility] ([facility]) [address], [place], [address], 06/03/2021 15:35:38 06/02/20 21 06/03/2021 URINA LYSIS W/REF ANA ROSA TO CULTU RE crystal amt. urine NONE /[hpf ] none Not Available [facility] ([facility]) [address], [place], [address], 06/03/2021 15:35:38 06/02/20 21 06/03/2021 URINA LYSIS W/REF ANA ROSA TO CULTU RE leukocyte esterase NEGATI VE negati ve Not Available [facility] ([facility]) [address], [place], [address], 06/03/2021 15:35:38 06/02/20 21 06/03/2021 URINA LYSIS W/REF ANA ROSA TO CULTU RE color YELLOW yellow , straw, yovanny Not Available [facility] ([facility]) [address], [place], [address], 06/03/2021 15:35:38 06/02/20 21 06/03/2021 URINA LYSIS W/REF ANA ROSA TO CULTU RE character CLEAR clear Not Available [facility] ([facility]) [address], [place], [address], 06/03/2021 15:35:38 06/02/20 21 06/03/2021 HIV AG/AB 4TH GENER ATION HIV Ag/Ab NON-RE ACTIVE non-re active Assay Infor matio n: Assay for the detec tion of HIV p24 antig en and antib odies to Human Immun odefi cienc y Virus Type 1,inc marjorie g Group O (HIV- 1 + O ) and/o r Type 2 (HIV- 2) Metho d: Chemi lumin escen ce (Siem ens Healt hcare Diagn ostic s) Not Available [facility] ([facility]) [address], [place], [address], 06/03/2021 15:35:39 06/07/20 21 05/08/2020 MRI, lumba r spine , w/wo contr ast No observ ation record ed. [id number] Not Available 2020 14:17:13 06/07/20 21 05/26/2019 MRI, lumba r spine , w/o contr ast No observ ation record ed. [id number] Not Available 2020 14:19:59 Result Notes None recorded. Procedures Surgical History Date Name Laterality Status Provider Name and Address Organization Details Recorded Time 1 HEDIS MEASURES MEDICAID completed Andreea Rodriguez MA [facility] 06/02/2021 13:21:49 0 Colposcopy completed Andreea Rodriguez MA [facility] 06/02/2021 13:19:04 0 Date of Last Pap Smear completed Andreea Rodriguez MA [facility], [facility] 06/02/2021 13:23:49 0 Most Recent Mammogram completed Andreea Rodriguez MA [facility], [facility] 06/02/2021 13:24:10 0 operation on hip joint completed Andreea Rodriguez MA [facility], [facility] 06/02/2021 13:22:57 8 operative procedure on knee completed Andreea Rodriguez MA [place] [facility], [facility] 06/02/2021 13:23:08 Imaging Results Imaging Date Name Status LastModified by Organiz ation Details LastModified Time 05/08/2020 MRI, lumbar spine, w/wo contrast completed [email or web address] Information not available 06/07/2021 14:17:13 05/26/2019 MRI, lumbar spine, w/o contrast completed [email or web address] Information not available 06/07/2021 14:19:59 Procedure Notes None recorded. Medical Equipment None Reported. Allergies Allergen ID Allergen Name Allergen Category Reaction Reaction Severity Criticality Documentation Date Start Date Code Code System Note Provider Name and Address Organization Details Recorded Time 8673 Augmentin medicatio n nausea Not available Not available 06/02/2021 98218 2 RxNorm not an aller gy - side effec t intol eranc e Not Available Not Available Not Available Medications Name Sig Start Date Stop Date Status Note LastModified by Organization Details LastModified Time nicotine 14 mg/24 hr daily transdermal patch APPLY 1 PATCH ONTO SKIN AND REPLACE EVERY 24 HOURS active Not Available Not Available No t Available oxybutynin chloride ER 10 mg tablet,extende d release 24 hr TAKE ONE TABLET BY MOUTH EVERY DAY active Not Available Not Available No t Available prednisone 20 mg tablet TAKE TWO TABLETS BY MOUTH EVERY DAY WITH FOOD active Not Available Not Available No t Available metronidazole 500 mg tablet TAKE ONE TABLET BY MOUTH THREE TIMES A DAY FOR 10 DAYS active Not Available Not Available No t Available ciprofloxacin 500 mg tablet TAKE ONE TABLET BY MOUTH EVERY 12 HOURS FOR 10 DAYS active Not Available Not Available No t Available triamcinolone acetonide 0.1 % topical cream APPLY TO AFFECTED AREA S) TWO TIMES A DAY active Not Available Not Available No t Available potassium chloride ER 20 mEq tablet,extende d release(part/c ryst) Take 1 tablet every day by oral route. 2020 active Not Available Not Available Not Avai lable calcium 500 mg (as calcium carbonate 1,250 mg) tablet TAKE ONE TABLET BY MOUTH TWICE A DAY DIRECTED active Not Available Not Available No t Available dicyclomine 20 mg tablet TAKE ONE TABLET BY MOUTH FOUR TIMES A DAY active Not Available Not Available No t Available montelukast 10 mg tablet Take 1 tablet every day by oral route for 90 days. 2020 active Not Available Not Available Not Avai lable ergocalciferol (vitamin D2) 1,250 mcg (50,000 unit) capsule Take 1 capsule every week by oral route. 2020 active Not Available Not Available Not Avai lable cefprozil 250 mg tablet Take 1 tablet every 12 hours by oral route for 7 days. 2020 active Not Available Not Available Not Avai lable levofloxacin 500 mg tablet TAKE ONE TABLET BY MOUTH EVERY DAY FOR 10 DAYS active Not Available Not Available No t Available oxycodone 5 mg tablet TAKE ONE TABLET BY MOUTH EVERY 6 HOURS NEEDED FOR PAIN ON SCALE 7-10 active Not Available Not Available No t Available Pentasa 500 mg capsule,contro lled release TAKE TWO CAPSULES BY MOUTH TWICE A DAY active Not Available Not Available No t Available Canasa 1,000 mg rectal suppository INSERT 1 GRAM RECTALLY AT BEDTIME FOR 30 DAYS active Not Available Not Available No t Available cholecalcifero l (vitamin D3) 25 mcg (1,000 unit) tablet TAKE ONE TABLET BY MOUTH EVERY DAY active Not Available Not Available No t Available GaviLyte-G 236 gram-22.74 gram-6.74 gram-5.86 gram oral solution DRINK 240ML BY MOUTH EVERY 10 MINUTES UNTIL FECAL EFFLUENT IS CLEAR. DO NOT EXCEED A TOTAL VOLUME OF 2000ML HALF CONTAINER ) active Not Available Not Available No t Available Myrbetriq 50 mg tablet,extende d release TAKE ONE TABLET BY MOUTH EVERY DAY active Not Available Not Available No t Available Vitals Date Recorded Body weight Body mass index (BMI) Body height Body temperature Respiratory rate Oxygen saturation Oxygen saturation in Arterial blood by Pulse oximetry Heart rate Systolic blood pressure Diastolic blood pressure Provider Name and Address Organization Details Last Updated DateTime 88322.0 4 g 20.1 kg/m2 160.02 cm 98.6 [degF] 18 /min 98 % 98 % 85 /min 113 mm[Hg] 65 mm[Hg] [facility] 13:25:28 Social History Question Answer Notes LastModified by Organizat ion Details LastModified Time Tobacco Smoking Status Current Every Day Smoker Andreea Rodriguez MA null, [facility] 06/02/2021 13:19:15 Do You Have An Advance Directive? No [email or web address] Information n ot available 06/02/2021 What Is Your Level Of Alcohol Consumption? Occasional [email or web address] Information not available 06/02/2021 Do You Wear A Helmet When Biking? No [email or web address] Information not available 06/02/2021 Is Blood Transfusion Acceptable In An Emergency? Yes Information not available 06/02/2021 What Is Your Level Of Caffeine Consumption? Occasional [email or web address] Information not available 06/02/2021 How Much Tobacco Do You Chew? None [email or web address] Information not available 06/02/2021 In The 14 Days Before Symptom Onset, Have You Had Close Contact With A Laboratory-confirm ed COVID-19 While That Case Was Ill? No Information n ot available 06/02/2021 In The 14 Days Before Symptom Onset, Have You Had Close Contact With A Person Who Is Under Investigation For COVID-19 While That Person Was Ill? No [email or web address] Information not available 06/02/2021 Have You Been To An Area Known To Be High Risk For COVID-19? No [email or web address] Information not available 06/02/2021 Are You Currently Employed? No [email or web address] Information not available 06/02/2021 Are You Deaf Or Do You Have Serious Difficulty Hearing? No [email or web address] Information not available 06/02/2021 Which Illicit Or Recreational Drugs Have You Used? Lea [email or web address] Information not available 06/02/2021 Have You Processed Blood Or Body Fluids From An Ebola Virus Disease Patient Without Appropriate PPE? No [email or web address] Information not available 06/02/2021 Do You Reside In Or Have You Traveled To An Area Where Ebola Virus Transmission Is Active? No [email or web address] Information not available 06/02/2021 What Is The Highest Grade Or Level Of School You Have Completed Or The Highest Degree You Have Received? [id number] [email or web address] Information not available 06/02/2021 What Is Your Occupation? Disabled [email or web address] Information not available 06/02/2021 Have There Been Any Changes To Your Family Or Social Situation? No [email or web address] Information no t available 06/02/2021 Are There Any Guns Present In Your Home? No [email or web address] Information not available 06/02/2021 How Many Family Members, Including Yourself, Do You Currently Live With? 1 [email or web address] Information not available 06/02/2021 What Is Your Housing Situation Today? I Have Housing [email or web address] Information not available 06/02/2021 Are You Worried About Losing Your Housing? No [email or web address] Information not available 06/02/2021 What Is The Highest Level Of School That You Have Finished? High School Diploma Or GED [email or web address] Information not available 06/02/2021 What Is Your Current Work Situation? Unemployed [email or web address] Information not available 06/02/2021 In The Past Year Have You Or Any Of Your Family Members Been Unable To Get OWNER CONSULTING ENGINEER When It Was Really Needed? No [email or web address] Information n ot available 06/02/2021 In The Past Year Have You Or Any Of Your Family Members Been Unable To Get CLOTHING When It Was Really Needed? No [email or web address] Information n ot available 06/02/2021 In The Past Year Have You Or Any Of Your Family Members Been Unable To Get FOOD When It Was Really Needed? No [email or web address] Information not available 06/02/2021 In The Past Year Have You Or Any Of Your Family Members Been Unable To Get PHONE When It Was Really Needed? No [email or web address] Information not available 06/02/2021 In The Past Year Have You Or Any Of Your Family Members Been Unable To Get UTILITIES When It Was Really Needed? No [email or web address] Information n ot available 06/02/2021 Has Lack Of Transportation Kept You From Medical Appointments, Meetings, Work, Or From Getting Things Needed For Daily Living? I Choose Not To Answer [email or web address] Information not available 06/02/2021 How Often Do You See Or Talk To People That You Care About And Feel Close To? 1 Or 2 Times A Week [email or web address] Information not available 06/02/2021 How Stressed Are You? Somewhat [email or web address] Information not available 06/02/2021 In The Past Year, Have You Spent More Than 2 Nights In A Row In A Senior Care, Shelter, Long-Term Center, Or Juvenile Correctional Facility? No [email or web address] Information not available 06/02/2021 Do You Feel Physically And Emotionally Safe Where You Currently Live? No [email or web address] Information not available 06/02/2021 In The Past Year, Have You Been Afraid Of Your Partner Or Ex-partner? No [email or web address] Information not available 06/02/2021 What Was The Date Of Your Most Recent Tobacco Screening? 06/02/2021 [email or web address] Information not available 06/02/2021 How Many Children Do You Have? 3 [email or web address] Information not available 06/02/2021 Do You Have Any Pets? No [email or web address] Information not available 06/02/2021 Do You Use Your Seat Belt Or Car Seat Routinely? Yes [email or web address] Information not available 06/02/2021 Are You Sexually Active? No [email or web address] Information not available 06/02/2021 Do You Have Smoke And Carbon Monoxide Detectors In Your Home? Yes [email or web address] Information not available 06/02/2021 At What Age Did You Start Smoking Tobacco? 13 [email or web address] Information not available 06/02/2021 Are You Passively Exposed To Smoke? No [email or web address] Information no t available 06/02/2021 How Much Tobacco Do You Smoke? 1 PPD [email or web address] Information not available 06/02/2021 Do You Use Any Illicit Or Recreational Drugs? No [email or web address] Information not available 06/02/2021 Do You Use Sunscreen Routinely? No [email or web address] Information not available 06/02/2021 How Many Years Have You Smoked Tobacco? 30 [email or web address] Information not available 06/02/2021 Sex: Female Functional Status Question Answer Note LastModified by Organizat ion Details LastModified Time Are you able to care for yourself? Yes [email or web address] Information not available 06/02/2021 What is your exercise level? Occasional [email or web address] Information not available 06/02/2021 Mental Status None recorded. Family History Relationship Description Onset Age of this Age Resolved Age Notes LastModified by Organization Details LastModified Time Mother Diabetes mellitus [email or web address] Not available 06/02 13:23:19 Medical History Condition Response Allergies/Hayfever Y Fibromyalgia Y Arthritis Y Gynecological History Statement/Question Response Abnormal Pap N Post Menopausal Bleeding N STIs/STDs N Colposcopy 09/10/2019 HPV Vaccine N Current Control Method Menopause Most Recent Mammogram 09/10/2019 Age at Menarche 13 Age at First Child 17 If Post Menopausal, Age at Menopause 49 Sexually Active? N Y Date of Last Pap Smear 09/10/2019 Sexual Problems? N Hormone Replacement Therapy N Obstetrics History GPAL:G 3 P 3 0 0 3 Type Value Multiple Births 0 Full Term 3 Induced 0 Spontaneous 0 Premature 0 Living 3 Ectopics 0 Total 3 Immunizations Vaccine Type Date Status Note Provider Nam e and Address Organization Details Recorded Time Influenza, split virus, quadrivalent, PF 07/13/2020 completed Shima Lees MD [address] [place], [address], [facility] 06/02/2021 14:31:41 COVID-19, mRNA, LNP-S, PF, 30 mcg/0.3 mL dose 05/08/2021 completed Shima Lees MD [address] [place], [address], [facility], [facility] 06/02/2021 14:31:41 Past Encounters Encounter ID Performer Location Encounter Start Date Encounter Closed Date Diagnosis/Indication Diagnosis SNOMED-CT Code Diagnosis ICD10 Code Diagnosis Note [id number] Shima Lees MD [address] [place] [address] 06/02/2021 12:57:44 06/06/2021 02:28:29 Screening for disorder 722759448 Z13.9 Check labs Long-term drug therapy 078432829 Z79.899 Check labs Chronic pain 59312616 G8 9.29 M79.7 M51.36 M50.30 Patient with long-stand ing chronic pain. Prior treatment with chronic opioids but none in the past 6 months. Will assist her with finding a pain management provider who accepts her healthcare plan. Viral screening 58058899 4 Z11.59 Check labs Body mass index 20-24 - normal 865358986 Z68.20 Normal weight by BMI. Immunization advised 310 550926 Z71.9 Recommend vaccine for influenza. Patient declines. [id number] Shima Lees MD [address] [place] [address] 07/01/2021 10:28:30 07/06/2021 19:40:40 Otitis media 92986059 H66.90 Patient c/o ear symptoms not fully resolved with treatment. I suspect she has underlying allergic drainage that is contributi ng to her ear symptoms. There may not actually be residual infection, could be just fluid congestion . Neverthele ss, will treat again with a different abx course. Suggest to take Singulair daily. If still not resoved, should f/u with ENT. Vitamin D deficiency 347 09691 E55.9 Low level on labs. Resume supplement s. Recheck for improvemen t. Hypokalemia 38690363 E87 .6 Low level on labs. Resume supplement s. Recheck for improvemen t. Patient in formed - test result 057487944 Z71.2 Reviewed results of recent testing. Answered questions and discussed plans for recommende d follow-up as indicated. Leukocytosis 621912482 D 72.829 Mildly elevated total WBC due to elevated neutrophil s primarily. Unsure if reactionar y from the ear infection at the time. She denies treatment course of steroids. Will see if elevation of blood counts persist on future lab tests. Long-term drug therapy 673269579 Z79.899 Check labs Health Concerns Section Related Observation LastModified by Organization Detai ls LastModified Time None Recorded Concern Status LastModified by Organization Details LastModified Time None Recorded Advance Directives Directive N: Payers Encounter Date Sequence Insurance Name Policy Number Policy Lemus Covered Member ID Lemus Member ID Guarantor Name 06/02/2021 1 [employer] CLAIM[employer] [id number] Cathie [employer] [id number] Cathie Filiault 07/01/2021 1 [employer] [id number] Cathie Filiault [id number] Cathie Aries [employer] Notes Date Note Type Note Provider Name and Address Organization Details Recorded Time 06/02/2021 text/html New patient here to establish. Her main medical complaint is chronic back pain and the need for meds for pain. She gives a h/o DDD, cervical and lumbosacral, and fibromyalgia. She has been seen most recently for pain management at [facility]. She says there was discussion of obtaining a new MRI of the cervical spine because she has had worsening of the pain.It has been a while since she has had a Rx for meds for pain. Previously treated with Percocet. Last fill, based on [employer] was 10/11/2020. Patient says she has generally kept up to date with basic preventive health measures and screenings when under the care of her prior providers. Patient lives in [place]. She says that she is unable to continue care with any of her prior providers there because they do not take her insurance. She says that the only providers she can see are in [place]. Currently on abx therapy (amoxicillin) for left ear infection. On day 2 after a change from Augmentin to plain amoxicillin. Otherwise, no Rx meds. Patient brings in a large folder full of prior medical care records. Shima Lees MD [address] [place], [address], [facility], [facility] 06/03/2021 07:37:39 07/01/2021 text/html Patient is being seen at a remote location via telemedicine (includes audio and video communication). The patient is informed that telemedicine is a billable service; copays, co-insurance, and deductibles may apply. Potential risks of medical care via telemedicine include security breech, technological failure, inability to perform a comprehensive physical exam which could delay or prevent an accurate diagnosis, and potential complications from treatment decisions rendered over a telemedicine platform. The patient understands and consents to the use of telemedicine services. Seen at last visit as a new patient. Visit today is to f/u on test results and issues discussed at that visit.The main topic of discussion was chronic pain. Patient is trying to find a new provider on her health plan. It has been very difficult so far. Chronic pain symptoms continue. Labs show a mildly low potassium and low vitamin D. Recalls h/o low potassium. Takes an OTC potassium but currently she is out. Out of vitamin D supplement as well. Requesting a medication for ear infection. Patient was on treatment for an ear infection when seen at last visit. Meds completed. C/o symptoms did not fully resolve. Has a pain and pressure feeling. She has congestion, post-nasal drainage sometimes. Shima Lees MD [address] [place], [address], [facility] 09/12/2021 08:54:05 OBGyn Episode No OBEpisode recorded.
--- OUTSIDE RECORDS SUMMARY | 2024-11-20 15:31 | XMS_ITS | Data Portability ---
Author Organization [place] - [facility] - Jean rida, SVPE_CARDIO_CC_CCMOB [address] Address [address] [place] [address] Care Team Providers Care Milk Inspector Name Role Phone MARA PAL Primary Care Provider LULA FOSS Pain Management MARA PAL Primary Care Provider Assessment Encounter Date Assessment Date Assessment LastModified by Organization Details LastModified Time 08/26/2020 08/26/2020 Impression/Plan: 1) Anxiety/Depression : trial of hydroxyzine - took this medication twice and did not feel has helped her at all. Reports she is managing anxiety/depression . 2) Chronic pain - request for new pain mgmt referral d/t insurance - is continue pain managing with Dr. Braden - will be changing insurance 09/10/2020 to [employer] Medicaid 3) Elevated BP without diagnosis of HTN - probable white coat syndrome - will have her monitor at home 4) e-coli uti - recheck urine cx neg for uti 5) UE paresthesia - may be r/t cervical DDD - she will address with her spine and pain specialist Dr. Braden. Advised to schedule OV for EKG and cardiac evaluation. Consider labs - B12 , Mg+ level. Advised to seek medical attention if symptoms worsens or change sin nature. Patient verbalized understanding of POC> Patient will need full set of FBW ordered at next office visit Patietn will need to schedule AWE Plan: Renew as indicated Goals: healthier eating improved compliance Lifestyle Goals: Decreased pain Barriers of care/plan: support cost of medications Plan: Renew as indicated Goals: healthier eating improved compliance Lifestyle Goals: Decreased pain Barriers of care/plan: support cost of medications Time spent with patient:__25__minu navin. Have you been seen in the last 7 days by an [facility] provider? no I did not request that the patient schedule an appointment at the next available time as a result of this encounter. CPT CODES: Telephone with video and/or VPO/Virtual/AmWell /Google Meets Emergency Coverage Options Medicare,Medicaid, Aetna (all plans),UHC (all plans),[place] (all plans)/*[employer] (urgent cases only) 69158,GT Est Pt - Hx EPF, MDM St Fwd (10 mins) 17912,GT Est Pt - Hx EPF, MDM Low (15 mins) 33263,GT Est Pt - Hx Detailed, MDM Moderate (25 mins) 66386,GT Est Pt - Hx Comprehensive, MDM High (40 mins) 35777,GT New Pt - Hx PF, MDM St Fwd (10 mins) 40746,GT New Pt - Hx PF, MDM St Fwd (20 mins) 45885,GT New Pt - Hx Detailed, MDM Low (30 mins) 52397,GT New Pt - Hx Detailed, MDM Moderate (45 mins) 95831,GT New Pt - Hx Comprehensive, MDM High (60 mins) Telephone Audio Only --Commercial Payors-- 76097- (5-10 mins) Telephone Eval 28375- (11-20 mins) Telephone Eval 61767- (21+ mins) Telephone Eval Telephone Audio Only --Medicare/Medicai d/C-- G2012- (5-10 mins) Telephone Eval G0071- (5-10 mins) [facility] Telephone Eval Virtual Provider Office (VPO) AmWell/Audio+Video *Normal(No Emergency Options)* CIGNA and others not emergency coverage 83073- (5-10 mins) Online Digital/Virtual 45618- (11-20 mins) Online Digital/Virtual 83975- (21+ mins) Online Digital/Virtual [email or web address] Not available 08/26/2020 16:39:02 09/01/2020 09/01/2020 Impression/Plan: 1) Anxiety/Depression : trial of hydroxyzine - took this medication twice and did not feel has helped her at all. Reports she is managing anxiety/depression . 2) Chronic pain - request for new pain mgmt referral d/t insurance - is continue pain managing with Dr. Braden - will be changing insurance 09/10/2020 to [employer] Medicaid 3) Elevated BP without diagnosis of HTN - probable white coat syndrome - will have her monitor at home . BP stable today 4) e-coli uti - recheck urine cx neg for uti, urine culture negative 5) UE paresthesia - may be r/t cervical DDD - she will address with her spine and pain specialist Dr. Braden. 6) Insomnia: trazadone for sleep EKG in office today: NSR with HR= 83 bpm. No ectopy or acute ST-T wave changes Serologic work-up: B12, TSH, Mg+ FBW ordered Schedule AWE/CBE/No PAP in 2 weeks UTD with PAP . Recent cologuard negative. Will need Mammogram. Plan: Renew as indicated Goals: healthier eating improved compliance Lifestyle Goals: Decreased pain Barriers of care/plan: support cost of medications Plan: Renew as indicated Goals: healthier eating improved compliance Lifestyle Goals: Decreased pain Barriers of care/plan: support cost of medications emmanuel Not available 09/01/2020 15:05:11 01/14/2021 01/14/2021 Impression/Plan: Will have blood work on Sunday 1) Anxiety/Depression : trial of hydroxyzine - took this medication twice and did not feel has helped her at all. Reports she is managing anxiety/depression . No adjustments made to management at this time. She denies homicidal suicidal ideation. 2) Chronic pain -Patient has upcoming office visit to establish care with new pain management at [facility]. 3) Elevated BP without diagnosis of HTN - probable white coat syndrome - will have her monitor at home . BP stable [id number]. She is not currently on any pharmacotherapy for this. Advised her on DASH diet, smoking cessation, stress mgmt 4) Complaint of dysuria, right sided flank pain, urinary frequency: Urine dipstick in office negative for leukocytes and nitrates but positive for moderate blood. Will treat with Macrobid to cover possible UTI, Pyridium for lower pelvic discomfort. Reviewed home care conservative measures with patient. Urine culture will be sent out. If positive she will continue and complete antibiotic treatment. If negative will discontinue. If symptoms persist with hematuria consider urology referral. 5) Insomnia: Patient has difficulty falling and staying asleep - trazadone for sleep ? P rescription refill for 50 mg at bedtime as needed. Reviewed medication including adverse effects. Patient verbalized understanding. FBW ordered Schedule AWE/CBE/No PAP in 2 weeks UTD with PAP . Recent cologuard negative. Will need Mammogram. Plan: Renew as indicated Goals: healthier eating improved compliance Lifestyle Goals: Decreased pain Barriers of care/plan: support cost of medications Plan: Renew as indicated Goals: healthier eating improved compliance Lifestyle Goals: Decreased pain Barriers of care/plan: support cost of medications [email or web address] Not available 01/14/2021 14:58:30 05/25/2021 05/25/2021 Impression/Plan: Chief Complaint/Reason for visit: left otalgia Date of last AWE/AMWE -Advised patient to schedule annual physical exam. Patient declines reporting that she is establishing with a new PCP on 05/30/2021 who she reports will prescribe benzodiazepines with her chronic pain medication. Date of last Labs/ labs ordered today - Pending Orders/Referrals- Imaging Studies/Referrals ordered today - Time spent for Non Cspl-vx-Vood :5 minutes - reviewed previous medical records, chart prepping, review of last labs/imaging results, review of last office visit, review of specialty notes. Face-to Face time spent with patient : 15minutes - counseling, teaching/educating , reviewing medications, diet, lifestyle changes, plan of care, follow-up. Left otitis media: Clinical exam consistent with LOM. Trial of Augmentin. Reviewed new medication with patient including name, indication, dosage, frequency, adverse effects, contraindications/ cautions, safety/instruction s, and special instructions. Advised to monitor for worsening symptoms and to call office for follow-up if no improvement, worsening or changes in nature. Advised on home care/conservative measures.Patient verbalized understanding. [email or web address] Not available 05/25/2021 13:46:42 Plan of Treatment Reminders Order Date Submit Date Provider Last Modified By Organization Details Last Modified Time Details Appointments None recorded. Lab lipid panel, serum 2020 021 [email or web address] [facility], [address] [place], [address], 10:52:08 [email or web address], [address] [place], [address], 1 10:52:08 TSH + free T4, serum 2020 021 [email or web address] [facility], [address] [place], [address], 1 10:52:09 CBC w/ auto diff 2020 021 [email or web address] [facility], [address] [place], [address], 1 10:52:09 magnesium , serum or plasma 2020 021 [email or web address] [facility], [address] [place], [address], 1 10:52:09 HbA1c (hemoglob in A1c), blood [email or web address], [address] [place], [address], 1 10:52:09 culture, urine 2020 021 SEE [facility], [address] [place], [address], 1 01:43:34 urinalysi s, dipstick, auto 2020 021 [email or web address] [facility] [place] Orders (For In-Office Services Only), [address] [place], [address], 1 14:45:58 hepatitis C virus Ab, serum 2020 [facility], [address] [place], [address], 1 10:52:09 lipid panel, serum 2019 [id number] [facility], [address] [place], [address], 1 10:24:51 CBC 2019 [id number] [facility], [address] [place], [address], 1 10:24:51 vitamin B12 + folate, serum or blood 2019 [facility], [address] [place], [address], 1 14:38:16 TSH + free T4, serum 2019 [id number] [facility], [address] [place], [address], 1 10:24:50 magnesium , serum or plasma 2019 [id number] [facility], [address] [place], [address], 1 10:24:50 CMP, serum or plasma 2019 [id number] [facility], [address] [place], [address], 1 10:24:50 hepatitis C virus Ab, serum 2019 [id number] [facility], [address] [place], [address], 1 10:24:51 HbA1c (hemoglob in A1c), blood 2019 [id number] [facility], [address] [place], [address], 1 10:24:51 Referral None recorded. Procedures None recorded. Surgeries None recorded. Imaging electroca rdiogram [address] [facility] [place] Orders (For In-Office Services Only), [address] [place], [address], 0 16:25:11 Medication Orders Augmentin 875 mg-125 mg tablet 2020 021 [facility], [address] [place] [address], [address], 1 13:39:56 trazodone 50 mg tablet 2020 021 [facility], [address] [place] [address], [address], 1 14:46:08 Pyridium 200 mg tablet [address] [facility], [address] [place] [address], [address], 1 13:33:41 Macrobid 100 mg capsule 2020 021 [place] [address], [address] [place] [address], [address], 1 13:33:38 Patient TargetsNo targets recorded. Patient Instructions Encounter Date Encounter Id Patient Instructions Last Modified By Organization Details Last Modified Time 08/26/2020 [id number] rest & fluids [email or web address] Not available 08/26/2020 16:39:09 depression education [email or web address] Not available 08/26/2020 16:39:09 smoking cessatio n counseling, greater than 3 minutes up to 10 minutes* Not available 09/02/2020 08:26:58 hand-washing: ca re instructions [email or web address] Not available 08/26/2020 16:39:09 COVID-19: What T o Do If You Are Sick (CDC Official) [email or web address] Not available 08/26/2020 16:39:08 COVID-19: What y ou need to know (CDC Official) [email or web address] Not available 08/26/2020 16:39:09 Discussed with patient the following including lab orders, imaging orders, new medications, referrals. Patient verbalized understanding. All medications were reviewed including dosages, pharmacotherapy, adverse effects, management and monitoring of labs. Plan of care was discussed in detail with patient including reason for testing and follow-up care. All questions were answered to the best my ability. The patient verbalized understanding of plan of care and it is in agreement with current management plan. Time spent with patient was approximately __25 minutes___ with greater than 50% vfik-ff-nlko counseling time. [email or web address] Not available 08/26/2020 16:39:18 09/01/2020 [id number] smoking cessatio n counseling, greater than 3 minutes up to 10 minutes* Not available 09/01/2020 16:18:30 depression education vpaskowski Not available 09/01/2020 14:47:37 rest & fluids vpaskowski Not available 1 11/02/2019 14:47:38 hand-washing: ca re instructions [email or web address] Not available 09/01/2020 14:47:37 COVID-19: What T o Do If You Are Sick (CDC Official) [email or web address] Not available 09/01/2020 14:47:37 COVID-19: What y ou need to know (CDC Official) [email or web address] Not available 09/01/2020 14:47:37 Discussed with patient the following including lab orders, imaging orders, new medications, referrals. Patient verbalized understanding. All medications were reviewed including dosages, pharmacotherapy, adverse effects, management and monitoring of labs. Plan of care was discussed in detail with patient including reason for testing and follow-up care. All questions were answered to the best my ability. The patient verbalized understanding of plan of care and it is in agreement with current management plan. Time spent with patient was approximately __30 minutes___ with greater than 50% tuju-gf-cmvg counseling time. [email or web address] Not available 09/01/2020 14:50:58 01/14/2021 [id number] blood in the urine: care instructions vpaskowski Not available 01/14/2021 14:48:28 insomnia: care instructions vpaskowski Not available 01/14/2021 14:45:58 smoking cessatio n counseling, greater than 3 minutes up to 10 minutes* Not available 01/17/2021 09:06:17 depression education vpaskowski Not available 01/14/2021 14:45:59 rest & fluids vpaskowski Not available 0 01/14/2021 14:45:58 medication information vpaskowski Not available 01/14/2021 14:59:42 New Medication [email or web address] Not available 01/14/2021 14:59:42 frequent urination: care instructions vpaskowski Not available 01/14/2021 14:45:58 Wipe front to back. Always wipe from the front to the back after using the bathroom. Do not try to reach from behind because germs from the rectum can be transferred to the hand and tissue. After bowel movements, clean the area around the anus gently, wiping from front to back. Never wipe twice with the same tissue. Any wiping motion that starts nearer to the rectum and then approaches the bladder-opening area moves potentially pathogenic bacteria closer to the bladder. Take showers and avoid prolonged baths. Bath water may fairly quickly become contaminated by the bather's own skin florae. Sitting in a tub allows bacteria to reach the bladder opening area. Wash properly, front to back, in the shower or bath. Rinse well and remember to wipe correctly from front to back. Douches have no proven benefit in preventing ladder infections. Use tampons for periods. Tampons are advised during the menstrual period rather than sanitary napkins or pads because they keep the bladder opening area drier take off tender than a sanitary pad, thereby limiting bacterial overgrowth. Extremely effective is avoiding long intervals between urinating. Try to empty the bladder at least every 4 hours during the day while awake, even if the need or urge to void is absent. When feeling the need to empty the bladder, do not try to ? h old it? until a more convenient time or place. Clothing Do not wear tight-fitting undergarments made of nonbreathing materials. With such fabrics, accumulating moisture builds up .This leads to maceration of the skin and bacterial over growth adjacent to the opening of the bladder Cotton underwear for general use is suggested. Diet Drink more water. Start with 1 extra glass with each meal. If the urine appears any darker than a very pale yellow, this means not enough liquid is being ingested; increase the fluid intake. Cranberry juice and cranberry pills have unproven benefit in reducing urinary infections. They appear to be most effective in younger women. Activities When engaging in physical activity and exercise, make sure to empty the bladder frequently and drink plenty of water and other fluids. Take special precautions after sexual activity; such activity may also increase risk because it can introduce bacteria into the bladder area. The bladder should be emptied after intercourse; drink 2 extra glasses of water. [email or web address] Not available 01/14/2021 15:00:09 Discussed with patient the following including lab orders, imaging orders, new medications, referrals. Patient verbalized understanding. All medications were reviewed including dosages, pharmacotherapy, adverse effects, management and monitoring of labs. Plan of care was discussed in detail with patient including reason for testing and follow-up care. All questions were answered to the best my ability. The patient verbalized understanding of plan of care and it is in agreement with current management plan. Time spent with patient was approximately _25 minutes____ with greater than 50% crfx-nq-evlv counseling time. [email or web address] Not available 01/14/2021 14:59:56 05/25/2021 [id number] medication information [email or web address] Not available 05/25/2021 13:46:46 New Medication [email or web address] Not available 05/25/2021 13:46:46 learning about healthy weight vpaskowski Not available 05/25/2021 13:39:40 Discussed with patient the following including lab orders, imaging orders, new medications, referrals. Patient verbalized understanding. All medications were reviewed including dosages, pharmacotherapy, adverse effects, management and monitoring of labs. Plan of care was discussed in detail with patient including reason for testing and follow-up care. All questions were answered to the best my ability. The patient verbalized understanding of plan of care and it is in agreement with current management plan. [email or web address] Not available 05/25/2021 13:46:52 Reason for Referral None Reported. Results Created Date Observation Date Name Description Value Unit Range Abnormal Flag Note LastModifiedBy Organization Detail LastModifiedTime 07/13/20 20 07/15/2020 cultu re, urine urine culture Name: BRODERICK CONNER LT normal [id number] [facility] [place] [id number] #: /A GE/ 1964 55 years Femal e SEX: ORD PHY: Janine riley APRN, Vivia n Urine /GI Cultu res & Exams PROCE DURE: Cultu re Urine COLLE CTED: 2019 00:00 EST SOURC E: Ur START ED: 2019 19:35 EST FREE TEXT SOURC E: RECEI JAY DATE/ TIME: 2019 19:35 EST BODY SITE: NA ACCES MANNY: [id number] ORDER ING PHYSI LATA: Janine riley APRN, Vivia n FI NAL REPOR TS Final Repor t [] Verif ied Date/ Time: 2019 04:13 EST Ureth ral nancy 10,00 0-30, 000 cfu/m L Not Available [facility] [address] [place], [address], 07/15/2020 04:20:28 07/13/20 20 07/13/2020 urina lysis , dipst ick Leukocytes Negati ve Not Available [facility] [place] [facility] (For In-Office Services Only) [address] [place], [address], 07/13/2020 13:33:47 07/13/20 20 07/13/2020 urina lysis , dipst ick Nitrite negati ve Not Available [facility] [place] [facility] (For In-Office Services Only) [address] [place], [address], 07/13/2020 13:33:47 07/13/20 20 07/13/2020 urina lysis , dipst ick Urobilinogen 0.2 Not Available [facility] [place] [facility] (For In-Office Services Only) [address] [place], [address], 07/13/2020 13:33:47 07/13/20 20 07/13/2020 urina lysis , dipst ick Protein Negati ve Not Available [facility] [place] [facility] (For In-Office Services Only) [address] [place], [address], 07/13/2020 13:33:47 07/13/20 20 07/13/2020 urina lysis , dipst ick pH 6.0 Not Available [facility] [place] [facility] (For In-Office Services Only) [address] [place], [address], 07/13/2020 13:33:47 07/13/20 20 07/13/2020 urina lysis , dipst ick Blood Modera te Not Available [facility] [place] Orders (For In-Office Services Only) [address] [place], [address], 07/13/2020 13:33:47 07/13/20 20 07/13/2020 urina lysis , dipst ick Specific [place] 1.010 Not Available [facility] [place] [facility] (For In-Office Services Only) [address] [place], [address], 07/13/2020 13:33:47 07/13/20 20 07/13/2020 urina lysis , dipst ick Ketone Negati ve Not Available [facility] [place] Orders (For In-Office Services Only) [address] [place], [address], 07/13/2020 13:33:47 07/13/20 20 07/13/2020 urina lysis , dipst ick Bilirubin Small Not Available [facility] [place] [facility] (For In-Office Services Only) [address] [place], [address], 07/13/2020 13:33:47 07/13/20 20 07/13/2020 urina lysis , dipst ick Glucose Negati ve Not Available [facility] [place] [facility] (For In-Office Services Only) [address] [place], [address], 07/13/2020 13:33:47 07/13/20 20 07/13/2020 urina lysis , dipst ick Appearance Clear Not Available [facility] [place] [facility] (For In-Office Services Only) [address] [place], [address], 07/13/2020 13:33:47 07/13/20 20 07/13/2020 urina lysis , dipst ick Color Yellow Not Available [facility] [place] [facility] (For In-Office Services Only) [address] [place], [address], 07/13/2020 13:33:47 07/22/20 20 07/22/2020 urina lysis , compl ete urine source Random random normal Not Available [facility] [address] [place], [address], 07/22/2020 20:11:58 07/22/20 20 07/22/2020 urina lysis , compl ete urine color Colorl ess yellow normal Not Available [facility] [address] [place], [address], 07/22/2020 20:11:58 07/22/20 20 07/22/2020 urina lysis , compl ete urine clarity Clear clear normal Not Available [facility] [address] [place], [address], 07/22/2020 20:11:58 07/22/20 20 07/22/2020 urina lysis , compl ete urine specific gravity 1.003 1.005- 1.035 low Not Available [facility] [address] [place], [address], 07/22/2020 20:11:58 07/22/20 20 07/22/2020 urina lysis , compl ete urine pH 5.0 5.0-8. 0 normal Not Available [facility] [address] [place], [address], 07/22/2020 20:11:58 07/22/20 20 07/22/2020 urina lysis , compl ete urine protein Negati ve mg/dL negati ve normal Not Available [facility] [address] [place], [address], 07/22/2020 20:11:58 07/22/20 20 07/22/2020 urina lysis , compl ete urine glucose Normal (<30) mg/dL normal (<30) normal Not Available [facility] [address], [address], 07/22/2020 20:11:58 07/22/20 20 07/22/2020 urina lysis , compl ete urine ketones Negati ve mg/dL negati ve normal Not Available [facility] [address], [address], 07/22/2020 20:11:58 07/22/20 20 07/22/2020 urina lysis , compl ete urine bilirubin Negati ve mg/dL negati ve normal Not Available [facility] [address], [address], 07/22/2020 20:11:58 07/22/20 20 07/22/2020 urina lysis , compl ete urine blood 0.1 mg/dL negati ve abnormal Not Available [facility] [address], [address], 07/22/2020 20:11:58 07/22/20 20 07/22/2020 urina lysis , compl ete urine nitrite Negati ve negati ve normal Not Available [facility] [address], [address], 07/22/2020 20:11:58 07/22/20 20 07/22/2020 urina lysis , compl ete urine urobilinogen Normal (<2.0) mg/dL normal (<2.0) normal Not Available [facility] [address], [address], 07/22/2020 20:11:58 07/22/20 20 07/22/2020 urina lysis , compl ete urine leukocyte esterase Negati ve zz negati ve normal Not Available [facility] [address], [address], 07/22/2020 20:11:58 07/22/20 20 07/22/2020 urina lysis , compl ete urine white blood cells <1 per_h pf 0-5 normal Not Available [facility] [address] [place], [address], 07/22/2020 20:11:58 07/22/20 20 07/22/2020 urina lysis , compl ete urine red blood cells <1 per_h pf 0-5 normal Not Available [facility] [address], [address], 07/22/2020 20:11:58 07/22/20 20 07/22/2020 urina lysis , compl ete squamous epithelial <1 per_h pf 0-5 normal Not Available [facility] [address], [address], 07/22/2020 20:11:58 08/24/20 20 08/24/2020 nonin vasiv e color ectal cance r DNA + occul t blood scree azam, stool cologuard result reportable Negati ve not applic able A negat malini resul t indic ates a low likel ihood that a color ectal cance r (CRC) or an advan genesis adeno ma (raymond omato us polyp s with more advan genesis pre-m align ant featu res) is prese nt. The chanc e that a perso n with a negat malini Colog uard test has a color ectal cance r is less than 1 in 1500 (nega tive predi ctive value >99.9 %) or has an advan genesis adeno ma is less than 5.3% (nega tive predi ctive value 94.7% ). These data are based on a prosp ectiv e cross -sect ional scree azam study of 10,00 0 indiv idual s at hurt ge risk for color ectal cance r who were scree gab with both Colog uard and colon oscop y. (Bakari Garcia et al, N Engl J Med 2014; 370(1 4):12 86-12 97) The gabriele l value (refe rence range ) for this assay is negat malini. COLOG UARD RE-SC OPAL HOANG RECOM MENDA TION: Perio dic routi ne color ectal cance r scree azam is an impor tant part of preve ntive healt hcare for asymp tomat ic perso ns at [facility] risk for color ectal cance r. Follo wing a negat malini Colog uard resul t, the Ameri can Cance r Socie ty and U.S. Multi -Soci ety Task Force scree azam guide lines recom mend a Colog uard re-sc reehernan ng inter marilee of 3 years . Refer ences : Ameri can Cance r Socie ty (ACS) . Color ectal cance r preve ntion and early detec tion. Madan rowe [place]: Ameri can Cance r Socie ty; [upda christiano 2016 Jan 01]. https ://ww w.can cer.o rg/ca ncer/ colon -rect al-ca ncer/ detec tion- diagn osis- stagi ng/ac s-rec ommen datio ns.ht ml. Acces sed Augus t 2017; Carson YANG, Anabel martínez CR, Osmel DudleyK, Color ectal Cance r Scree azam: Recom menda tions for Physi cians and Patie nts from the U.S. Multi -Soci ety Task Force on Color ectal Cance r Scree azam, Am Luis Enrique callejas y 2017; 112:1 016-1 030. TEST TYPE: Alcova site algor ithmi c grant sis of stool DNA-b iomar kers with hemog lobin immun oassa y. Quant itati ve value s of indiv idual bioma rkers are not repor table and are not assoc iated with indiv idual bioma rker resul t refer ence range s. PRECA UTION S AND LIMIT ATION S: Colog uard is inten ded for color ectal cance r scree azam of adult s of eithe r sex, 45 years or older , who are at [facility] for color ectal cance r (CRC) . Colog uard has been appro jay for use by the U.S. FDA. Colog uard may produ ce a false negat malini or false posit malini resul t. A negat malini Colog uard test resul t does not guara ntee the absen ce of CRC or advan genesis adeno ma (pre- cance r). Patie nts with a negat malini Colog uard test resul t shoul d be advis ed to roberto nue parti cipat ing in a color ectal cance r scree azam progr am. The scree azam inter marilee for Colog uard is curre ntly recom bud d at an inter marilee of every 3 years by the Ameri can Cance r Socie ty and U.S. Multi -Soci ety Task Force . A false posit malini resul t occur s when Colog uard produ carolina a posit malini resul t, even thoug h a colon oscop y may not find color ectal cance r or preca ncero us polyp s. The perfo rmanc e of Colog uard has been estab lishe d in a cross secti onal study (i.e. , singl e point in time) of [facility] adult s aged 50-84 . Colog uard perfo rmanc e in patie nts ages 45 to 49 years was estim ated by emily-g kwaku grant sis of near- age group s. Colog uard perfo rmanc e data in a 10,00 0 patie nt pivot al study using colon oscop y as the refer ence metho d can be acces sed at the follo wing locat ion: www.e xactl abs.c om/re sults . Addit ional descr iptio n of the Colog uard test proce ss, warni ngs and preca ution s can be found at www.c [address] [facility].co m. Rx only. Not Available [facility] (Cologuard Orders Only) [address], [place], [address], 08/27/2020 08:55:53 01/15/2001/16/2021 cultu re, urine urine culture Name: [place] [id number] [facility] [id number] #: /[id number] 55 years Femal e SEX: ORD PHY: Janine riley APRN, Vivia n Urine /GI Cultu res & Exams PROCE DURE: Cultu re Urine COLLE CTED: 00:00 EDT SOURC E: URINE START ED: 20:11 EDT FREE TEXT SOURC E: RECEI JAY DATE/ TIME: 20:11 EDT BODY SITE: ACCES MANNY: [id number] ORDER ING PHYSI LATA: Janine riley APRN, Vivia n FI NAL REPOR TS Final Repor t [] Verif ied Date/ Time: 01:26 EDT Ureth ral nancy 1,000 -10,0 00 cfu/m L Not Available [facility] [address] [place], [address], 01/16/2021 01:43:34 01/15/20 21 01/14/2021 urina lysis , dipst ick, auto Leukocytes Negati ve Not Available [facility] Physician [place] Orders (For In-Office Services Only) [address] [place], [address], 01/14/2021 14:39:51 01/15/20 21 01/14/2021 urina lysis , dipst ick, auto Nitrate negati ve Not Available [facility] Phys[facility] [place] Orders (For In-Office Services Only) [address] [place], [address], 01/14/2021 14:39:51 01/15/20 21 01/14/2021 urina lysis , dipst ick, auto Urobilinogen 0.2mg/ dL Not Available [facility] Physician [place] Orders (For In-Office Services Only) [address] [place], [address], 01/14/2021 14:39:51 01/15/20 21 01/14/2021 urina lysis , dipst ick, auto Specific [place] 1.005 Not Available [facility] [place] Orders (For In-Office Services Only) [address] [place], [address], 01/14/2021 14:39:51 01/15/20 21 01/14/2021 urina lysis , dipst ick, auto Ketone Negati ve Not Available [facility] Physician [place] Orders (For In-Office Services Only) [address] [place], [address], 01/14/2021 14:39:51 01/15/20 21 01/14/2021 urina lysis , dipst ick, auto Blood Non-He molyze d: Modera te Not Available [facility] Physician [place] Orders (For In-Office Services Only) [address] [place], [address], 01/14/2021 14:39:51 01/15/20 21 01/14/2021 urina lysis , dipst ick, auto pH 5.5 Not Available [facility] Physician [place] Orders (For In-Office Services Only) [address] [place], [address], 01/14/2021 14:39:51 01/15/20 21 01/14/2021 urina lysis , dipst ick, auto Protein Negati ve Not Available [facility] Physician [place] Orders (For In-Office Services Only) [address] [place], [address], 01/14/2021 14:39:51 01/15/20 21 01/14/2021 urina lysis , dipst ick, auto Bilirubin Negati ve Not Available [facility] Physician [place] Orders (For In-Office Services Only) [address] [place], [address], 01/14/2021 14:39:51 01/15/20 21 01/14/2021 urina lysis , dipst ick, auto Glucose Negati ve Not Available [facility] Physician [place] Orders (For In-Office Services Only) [address] [place], [address], 01/14/2021 14:39:51 01/15/20 21 01/14/2021 urina lysis , dipst ick, auto Appearance Clear Not Available [facility] Phys[facility] [place] Orders (For In-Office Services Only) [address] [place], [address], 01/14/2021 14:39:51 01/15/20 21 01/14/2021 urina lysis , dipst ick, auto Color Yellow Not Available [facility] Phys[facility] [place] Orders (For In-Office Services Only) [address] [place], [address], 01/14/2021 14:39:51 09/01/20 20 elect porsha trangr am No observ ation record ed. Not Available 2019 16:25:36 09/14/19 21 05/30/2019 MAMMO , scree azam, digit al, bilat eral No observ ation record ed. Not Available 2020 11:02:53 Result Notes None recorded. Problems Name Problem SNOMED Code Status Onset Date Resolution Date Notes Provider Name and Address Organization Details Recorded Time Health educatio n given 366959307 Active 2019 Mara Pal APRN [address] [facility],[address], [place], [address] , [facility] 0 20:52:43 Tobacco dependen ce syndrome 11738446 Active 2019 Mara Pal APRN [address], [place], [address] , [facility] - [facility] 0 20:48:41 Chronic pain syndrome 714015083 Active [address] [facility] - has to change to [place] [facility] d/t insuranc e. H/O DDD Mara Garcia Citlaly, PRINT MANAGER [address], [place], [address] , [facility] 0 20:49:45 Degenera tion of interver tebral disc 39557358 Active 2019 Mara Garcia Citlaly, PRINT MANAGER [address], [place], [address] , [facility] 0 20:49:58 Divertic ular disease 067672489 Active 2019 h/o divertic ulosis Mara Garcia HELEN PalN [address], [place], [address] , [facility] 0 20:50:21 Fibromya lgia 798697144 Active 2019 Mara Garcia HELEN PalN [address], [place], [address] , [facility] 0 15:59:05 Degenera tion of lumbar interver tebral disc 58431097 Active 2019 Patient has received cortison e shots to cervical and lumbar spine Mara Radha Citlaly, TANMAY [address], [place], [address] , [facility] 0 16:00:24 Degenera tion of cervical interver tebral disc 80092295 Active 2019 Patient has received cortison e shots to the cervical and lumbar spine Mara Radha TANMAY Pal [address], [place], [address] , [facility] 0 16:00:34 Bilatera l bursitis of hips [id number] 851440 Active 2019 Mara Radha TANMAY Pal [address], [place], [address] , [facility] 0 15:59:43 Paresthe tre 14551223 Active 2019 Mara Pal APRN [address], [place], [address] , [facility] 0 16:37:41 Bacteria l urinary infectio n 611701635 Completed 201909/12/2020 [facility] :ER visit for gram-neg ative e-coli UTI; hyperkal emia; severe dehydrat ion. She was treated with ciproflo xacin Mara Pal APRN [address], [place], [address] , [facility] 1 17:35:33 Insomnia 978166482 Active 2020 Mara Pal APRN [address], [place], [address] , [facility] 1 14:44:45 Arthriti s 1414807 Active 2020 Mara Pal APRN [address], [place], [address] , [facility] 1 16:05:38 Essentia l hyperten manny 54460586 Active 2020 Mara Pal APRN [address], [place], [address] , [facility] 1 16:06:06 Chronic depressi on 529066852 Active 2020 Mara Pal APRN [address], [place], [address] , [facility] 1 16:06:31 Generali zed anxiety disorder 41979309 Active 2020 Mara Pal APRN [address], [place], [address] , [place] - [facility] 1 16:06:44 [facility] emia [id number] Completed 202001/18/2021 Mara Garcia Citlaly, PRINT MANAGER [address], [place], [address] , [place] - [facility] 1 16:07:01 Spondylo listhesi s 298364935 Active 2020 L4-L5 level Mara Garcia Citlaly, PRINT MANAGER [address], [place], [address] , [place] - [facility] 1 16:08:49 Lumbosac ral spondylo sis without myelopat hy 78503086 Active 2020 Mara F Citlaly, PRINT MANAGER [address], [place], [address] , [place] - [facility] 1 16:09:00 Primary insomnia 9751683 Active 2020 Mara Garcia Citlaly, PRINT MANAGER [address], [place], [address] , [place] - [facility] 1 16:09:22 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 Procedures Surgical History Date Name Laterality Status Provider Name and Address Organization Details Recorded Time 1 [facility] completed Mara Pal APRN [address], [place], [address], [facility] 05/25/2021 13:47:00 1 [facility] completed Mara Pal APRN [address], [place], [address], [facility] 01/14/2021 14:59:46 1 [facility] cancelled Liliane Vasquez [place] - [facility] 09/07/2020 11:21:53 0 [facility] completed Liliane Vasquez [place] - [facility] 08/27/2020 16:02:41 0 [facility] completed Liliane Vasquez [place] - [facility] 08/19/2020 14:12:44 0 [facility] completed Liliane Vasquez [place] - [facility] 07/09/2020 12:23:19 9 Date of Last Pap Smear completed Mara Pal APRN [address], [place], [address], [facility] 2020 16:05:21 6 Hip Surgery completed [address], [place], [address], [facility] 01/18/2021 16:07:16 9 Knee Surgery completed Mara Pal APRN [address], [place], [address], [facility] 01/18/2021 16:08:08 repair of nose completed Cass Vega [place] - [facility] 07/12/2020 14:11:03 Imaging Results Imaging Date Name Status LastModified by Organization Details LastModified Time 09/01/2020 electrocardiogram completed Informa tion not available 09/01/2020 16:25:36 05/30/2019 MAMMO, screening, digital, bilateral completed Information not available 09/14/2020 11:02:53 Procedure Notes None recorded. Medical Equipment None Reported. Medications Name Sig Start Date Stop Date Status Note LastModified by Organization Details LastModified Time cyclobenzap rine 10 mg tablet TAKE 1 TABLET BY MOUTH TWICE DAILY 1 2 HOURS BEFORE BEDTIME 05/25 completed Not Available Not Available Not Available trazodone 50 mg tablet TAKE 1 TABLET BY MOUTH ONCE DAILY AT BEDTIME NEEDED FOR 30 DAYS active Not Available Not Available No t Available ibuprofen 800 mg tablet TAKE 1 TABLET BY MOUTH 4 TIMES DAILY FOR 10 DAYS 01/14 completed Not Available Not Available Not Available phenazopyri dine 200 mg tablet TAKE 1 TABLET BY MOUTH THREE TIMES DAILY NEEDED 05/25 completed Not Available Not Available Not Available penicillin V potassium 500 mg tablet TAKE 1 TABLET BY MOUTH 4 TIMES DAILY FOR 7 DAYS 01/14 completed Not Available Not Available Not Available ciprofloxac in 500 mg tablet TAKE 1 TABLET BY MOUTH EVERY 12 HOURS 01/14 completed Not Available Not Available Not Available oxycodone-a cetaminophe n 5 mg-325 mg tablet TAKE 1 TABLET BY MOUTH EVERY 6 HOURS NEEDED FOR 28 DAYS 01/14 completed Not Available Not Available Not Available amoxicillin 875 mg tablet TAKE 1 TABLET BY MOUTH EVERY 12 HOURS WITH MEALS FOR 10 DAYS active Not Available Not Available No t Available dicyclomine 20 mg tablet TAKE 1 TABLET BY MOUTH THREE TIMES DAILY NEEDED FOR CRAMPING 01/14 completed Not Available Not Available Not Available hydroxyzine HCl 25 mg tablet Take 1 tablet 3 times a day by oral route as needed. 08/26 completed Not Available Not Available Not Available oxycodone-a cetaminophe n 7.5 mg-325 mg tablet TAKE 1 TABLET BY MOUTH EVERY 6 HOURS NEEDED FOR 28 DAYS 01/14 completed Not Available Not Available Not Available ondansetron 4 mg disintegrat ing tablet DISSOLVE 1 TABLET IN MOUTH EVERY 4 HOURS NEEDED FOR NAUSEA AND VOMITING 01/14 completed Not Available Not Available Not Available amoxicillin 875 mg-potassiu m clavulanate 125 mg tablet TAKE 1 TABLET BY MOUTH EVERY 12 HOURS WITH MEALS FOR 10 DAYS active Not Available Not Available No t Available nitrofurant oin monohydrate /macrocryst als 100 mg capsule TAKE 1 CAPSULE BY MOUTH EVERY 12 HOURS WITH MEALS FOR 5 DAYS 05/25 completed Not Available Not Available Not Available Vitamin C 1 tablet once a day 01/14 completed Not Available Not Available Not Available oxycodone 7.5 MG 1 tab every 6 hours as needed 01/14 completed Not Available Not Available Not Available zinc 1 tablet once a day 01/14 completed Not Available Not Available Not Available Vitamin D Take 1 tablet once daily 05/25 completed Not Available Not Available Not Available cyclobenzap rine 1 tablet once a day as needed 01/14 completed Not Available Not Available Not Available trazodone 1 tablet as needed for sleep 01/14 completed Not Available Not Available Not Available potassium 1 tablet twice a day 05/25 completed Not Available Not Available Not Available Multi Vitamin 1 tablet once a day 09/01 completed Not Available Not Available Not Available marijuana (cannabis) Uses as needed active Not Available Not Available No t Available albuterol sulfate 90 mcg/actuati on breath activated powder inhaler Inhale 2 puffs every 4 hours by inhalatio n route. 2020 active Not Available Not Available Not Avai lable Vitals Date Recorded Body height Body temperature Provider N marielena and Address Organization Details Last Updated DateTime 07/22/2020 162.56 cm 97.9 [degF] [facility] 07/22/2020 14:05:02 Date Recorded Body height Body mass index (BMI) Body weight Pain severity - 0-10 verbal numeric rating [Score] - Reported Heart rate Oxygen saturation Oxygen saturation in Arterial blood by Pulse oximetry Systolic blood pressure Diastolic blood pressure Provider Name and Address Organization Details Last Updated DateTime 0 162.56 cm 20.1 kg/m2 76223.3 1 g 5 101 /min 97 % 97 % 128 mm[Hg] 92 mm[Hg] [facility] 0 11:14:46 Date Recorded Body height Body temperature Body mass index (BMI) Body weight Heart rate Respiratory rate Oxygen saturation Oxygen saturation in Arterial blood by Pulse oximetry Pain severity - 0-10 verbal numeric rating [Score] - Reported Systolic blood pressure Diastolic blood pressure Provider Name and Address Organization Details Last Updated DateTime 0 162.56 cm 97 [degF] 20.6 kg/m2 75593.0 8 g 99 /min 16 /min 95 % 95 % 7 134 mm[Hg] 85 mm[Hg] Cass Vega [facility] [place] 0 14:35:12 Date Recorded Body height Body mass index (BMI) Body weight Heart rate Respiratory rate Oxygen saturation Oxygen saturation in Arterial blood by Pulse oximetry Body temperature Pain severity - 0-10 verbal numeric rating [Score] - Reported Systolic blood pressure Diastolic blood pressure Provider Name and Address Organization Details Last Updated DateTime 1 162.56 cm 19.8 kg/m2 23272.8 2 g 90 /min 16 /min 97 % 97 % 97.5 [degF] 8 142 mm[Hg] 88 mm[Hg] Cass Vega [facility] 1 14:30:53 Date Recorded Body height Body mass index (BMI) Body weight Heart rate Respiratory rate Oxygen saturation Oxygen saturation in Arterial blood by Pulse oximetry Body temperature Pain severity - 0-10 verbal numeric rating [Score] - Reported Systolic blood pressure Diastolic blood pressure Provider Name and Address Organization Details Last Updated DateTime 1 162.56 cm 19.1 kg/m2 10791.1 5 g 99 /min 16 /min 97 % 97 % 97.3 [degF] 4 143 mm[Hg] 96 mm[Hg] Cassmindy Vega [facility] [place] 1 13:32:23 Social History Question Answer Notes LastModified by Organizat ion Details LastModified Time Tobacco Smoking Status Current Every Day Smoker Cass Vega [facility] 07/12/2020 14:06:12 Do You Have An Advance Directive? No Information not available 07/12/2020 What Is Your Level Of Alcohol Consumption? Occasional Information not available 07/12/2020 How Many Years Have You Consumed Alcohol? 30 Information not available 01/14/2021 Are You Blind Or Do You Have Difficulty Seeing? No Information not available 07/12/2020 What Is Your Level Of Caffeine Consumption? None Information not available 01/14/2021 In The 14 Days Before Symptom Onset, Have You Had Close Contact With A Laboratory-confir med COVID-19 While That Case Was Ill? No Information not available 05/25/2021 In The 14 Days Before Symptom Onset, Have You Had Close Contact With A Person Who Is Under Investigation For COVID-19 While That Person Was Ill? No Information not available 05/25/2021 Have You Been To An Area Known To Be High Risk For COVID-19? No Information not available 05/25/2021 Are You Currently Employed? No Information not available 01/14/2021 Are You Deaf Or Do You Have Serious Difficulty Hearing? No Information not available 07/12/2020 Which Illicit Or Recreational Drugs Have You Used? MARIJUANA USER Information not available 01/14/2021 Do You Reside In Or Have You Traveled To An Area Where Ebola Virus Transmission Is Active? No Information not available 05/25/2021 Do You Or Have You Ever Used E-cigarettes Or Vape? Never Used Electronic Cigarettes Information not available 01/14/2021 How Hard Is It For You To Pay For The Very Basics Like Food, Housing, Medical Care, And Heating? [id number] Information not available 07/12/2020 Hard Of Hearing Or Deaf In One Or Both Ears? No Information not available 07/12/2020 Legally Blind In One Or Both Eyes? No Information no t available 07/12/2020 Patient Would Like A Flu Shot No Information not available 09/01/2020 Please List The Date The Patient Received The Flu Shot 07/13/2020 Information not available 09/01/2020 Please List The Location Where The Patient Received The Flu Shot In Office Information not available 09/01/2020 Date Of Last Colon Screening 10/23/2020 Information not available 01/14/2021 Location Of Last Colon Screening Did A Home Cologuard Information not available 01/14/2021 Patient Interested In Colorectal Cancer Screening No Information not available 01/14/2021 Forms Of Tobacco Cigarettes Informat ion not available 07/12/2020 Have You Had A Fever And/or Symptoms Of A Lower Respiratory Illness (cough, Difficulty Breathing, Etc)? No Information not available 07/12/2020 Have You Had Any Of These Symptoms: Chills ,Headache, Fatigue, Muscle Or Body Aches , Sore Throat, New Loss Of Taste Or Smell, Nausea Or Vomiting, Or Diarrhea? No Information not available 01/14/2021 Have You Had A COVID-19 Vaccine In The Last 7 Days? No Information not available 08/26/2020 Marital Status Informatio n not available 01/14/2021 What Was The Date Of Your Most Recent Tobacco Screening? 05/25/2021 Information not available 05/25/2021 How Many Children Do You Have? 3 Information not available 01/14/2021 What Is Your Current Pack Years? 10-19packyears Information not available 01/14/2021 Seat Belts Used Routinely Yes Information not available 07/12/2020 Smoke Alarm In Home Yes Information not available 07/12/2020 Do You Or Have You Ever Used Smokeless Tobacco? Never Used Smokeless Tobacco Information not available 01/14/2021 How Much Tobacco Do You Smoke? 1 PPW Information not available 07/12/2020 General Stress Level High Information not available 07/12/2020 Do You Feel Stressed (tense, Restless, Nervous, Or Anxious, Or Unable To Sleep At Night)? [id number] Information not available 01/14/2021 Do You Use Sunscreen Routinely? Yes Information not available 01/14/2021 How Many Years Have You Smoked Tobacco? 30 Information not available 07/12/2020 Sex: Unknown Functional Status Question Answer Note LastModified by Organizat ion Details LastModified Time Do you have difficulty walking or climbing stairs? No Information not available 07/12/2020 Do you have transportation difficulties? No Information not available 05/25/2021 Do you have difficulty doing errands alone? No Information not available 07/12/2020 Are you able to care for yourself? Yes Information not available 01/14/2021 Do you have difficulty dressing or bathing? No Information not available 07/12/2020 Mental Status Question Answer Note LastModified by Organization D etails LastModified Time Do you have difficulty concentrating, remembering or making decisions? Yes Information no t available 07/12/2020 Family History Relationship Description Onset Age of this Age Resolved Age Notes LastModified by Organization Details LastModified Time Mother Diabetes mellitus Not available 2019 14:05:30 Paternal Grandmother Diabetes mellitus [email or web address] Not available 07/14 16:00:45 Medical History No medical history recorded. Gynecological History Statement/Question Response Date and Result of Last Mammogram 019 [facility]. BI-RADS 1 - negative. Annual Mammagraphy recommended Flow Moderate Date of LMP 09/10/2011 Frequency of Cycle (Q days) 5 On BCP's at Conception? N Menses Monthly N Date of Last Pap Smear 05/09/2019 Duration of Flow (days) 5 Age at Menarche 12 LMP Approximate Location/facility name of mammogram [facility] History GPAL:G 3 P 0 0 0 3 Type Value Living 3 Total 3 Immunizations Vaccine Type Date Status Note Provider Nam e and Address Organization Details Recorded Time COVID-19, mRNA, LNP-S, PF, 30 mcg/0.3 mL dose 05/08/2021 completed Cass Vega [facility] 05/25/2021 13:35:57 Influenza, split virus, quadrivalent, PF 07/13/2020 completed Mara Pal APRN [address], [place], [address], [facility] 07/18/2020 17:11:54 Past Encounters Encounter ID Performer Location Encounter Start Date Encounter Closed Date Diagnosis/Indication Diagnosis SNOMED-CT Code Diagnosis ICD10 Code Diagnosis Note [id number] Mara Pal APRN SV[facility]PRIM ARY_FERNA NDINA [address] [place] [address] 07/12/2020 13:38:18 07/12/2020 14:54:47 Depression screening 806482135 Z13.31 Health edu cation given 376644128 Z71.9 Reviewed careplan with patient/ca regiver. Changes made where necessary, discussed obstacles and limitation s. Normal bod y mass index 56471845 Z68.20 BMO =20.3 Dysuria 22892089 R30.0 Patient was not able to give sufficient sample - will advise her to give urine sample tomorrow Low back pain 953812486 M54.5 advised patient to push fluids and take meds as directed. Screening for malignant neoplasm of colon 821092969 Z12.11 USPSTF recommends FIT -DNA test every 3 years Chronic back pain 324493 002 M54.9 Referral to [facility] - see patient order group - Dr. Mary Pablo ordering provider d/t insurance Mixed anxi ety and depressive disorder 008840108 F41.8 ANN-7 =, PHQ-9 =09/05. Denies HI/SI. We discussed pharmacoth erapy options - unfortunat mohan d/t patient being on chronic opioid therapy she is limited to medication s due to interactio ns . Trial of hydroxyzin e.Declines Psychiatry and referral at this time Cautions were reviewed with the use of this medication . Patient understand s this medication is not for long-term use. Reviewed that she should not drive, operate heavy machinery, or perform tasks that may be considered dangerous when using this medication . It should not be combined with alcohol consumptio n. Patient should not take any other sedating medication s or supplement s including sleep agents, benzodiaze pines, muscle relaxants. Advised that this medication is addictive and intended for short-term use for intermitte nt use only. Dosage and instructio ns about medication discussed with the patient. Patient educated about side effects of the medication . Patient verbalized understand ing. A safety plan was developed, patient was provided with clinic contact and crisis line informatio n. Advised patient if he/she develops any suicidal or homicidal ideation call 911 or seek emergency medical attention. Patient has decision-m aking capacity and informed consent for all treatment, interventi ons was obtained. Pros and cons of all therapeuti c interventi ons were discussed. .Patient verbalized understand ing. Elevated blood-pressure reading without diagnosis of hypertension 997771308 R03.0 Recheck BP 138/82. Continue to monitor [id number] Mara Pal APRN [facility]FERNA [facility] [address] [address] [place] [address] 07/13/2020 13:28:39 07/13/2020 14:21:43 Administration of influenza vaccine 11144992 Z23 FLu vaccine administer ed without adverse effects. Patient tolerated well. Dysuria 84640113 R30.9 Nurse visit on 07/13/2020 - u/a with moderate blood, will notify patient - advise that she will need urine cx - recently treated for e-coli UTI [id number] Mara Pal APRN [facility]FERNA [facility] [address] [address] [place] [address] 07/22/2020 13:57:28 07/22/2020 14:10:53 [id number] Mara Pal APRN [facility]FERNA [facility] [address] [address] [place] [address] 08/26/2020 11:08:28 08/26/2020 11:55:55 Tobacco dependence syndrome 26304664 F17.200 Degenerati on of cervical intervertebral disc 28734336 M50.30 see above. managed by [facility] Degenerati on of lumbar intervertebral disc 77921039 M51.36 see above. managed by [facility] spine and pain Depression screening 171 849124 Z13.31 PHQ-2=0/6 Health edu cation given 054154157 Z71.9 Reviewed careplan with patient/ca regiver. Changes made where necessary, discussed obstacles and limitation s. Normal bod y mass index 70041589 Z68.20 BMO =20.1 Dysuria 57858122 R30.0 resolved Low back pain 353791013 M54.5 advised patient to push fluids and take meds as directed. Screening for malignant neoplasm of colon 811322739 Z12.11 USPSTF recommends FIT -DNA test every 3 years Chronic back pain 615089 002 M54.9 Referral to [facility] - see patient order group - Dr. Mary Pablo ordering provider d/t insurance Mixed anxi ety and depressive disorder 728156492 F41.8 HANSA - ANN-7 =13/21, PHQ-9 =09/05. Denies HI/SI. We discussed pharmacoth erapy options - unfortunat mohan d/t patient being on chronic opioid therapy she is limited to medication s due to interactio ns . Trial of hydroxyzin e not effective. Declines Psychiatry and referral at this time Reports she i smanaging symptoms Safety education 2178413 04 Z71.9 Paresthesia 86860721 R20 .2 see above [id number] Mara Pal APRN [facility]FER[facility] [address] [place] [address] 09/01/2020 14:28:32 09/01/2020 15:04:12 Paresthesia 05688594 R20.2 see above Tobacco de pendence syndrome 35255487 F17.200 3-10 minutes spent counsellin g on smoking cessation. Reviewed the risk of smoking including health and socioecono gurmeet. Discussed benefits of cessation and methods including medication s, replacemen t and alternativ e therapies, self/behav ior cessation and counsellin g treatments as appropriat e. Also detailed e-cig vs smoking risks if appropriat e. Recommende d cessation with planned stop date and support. Normal bod y mass index 03253827 Z68.20 BMO =20.1 Degenerati on of cervical intervertebral disc 11832601 M50.30 see above. managed by [facility] Degenerati on of lumbar intervertebral disc 81237922 M51.36 see above. managed by [facility] spine and pain Depression screening 171 399740 Z13.31 PHQ-2=08/11 7 at [facility] edu cation given 295115595 Z71.9 Reviewed careplan with patient/ca regiver. Changes made where necessary, discussed obstacles and limitation s. Dysuria 73256600 R30.0 resolved- repeat urine cx neg Low back pain 697364542 M54.5 advised patient to push fluids and take meds as directed. Screening for malignant neoplasm of colon 822032178 Z12.11 USPSTF recommends FIT -DNA test every 3 years Chronic back pain 042210 002 M54.9 Referral to [facility] - see patient order group - Dr. Mary Pablo ordering provider d/t insurance Mixed anxi ety and depressive disorder 146799470 F41.8 [facility] - ANN-7 =, PHQ-9 =09/05. Denies HI/SI. We discussed pharmacoth erapy options - unfortunat mohan d/t patient being on chronic opioid therapy she is limited to medication s due to interactio ns . Trial of hydroxyzin e not effective. Declines Psychiatry and referral at this time Reports she i smanaging symptoms Safety education 6417731 04 Z71.9 Diabetes m ellitus screening 186421429 Z13.1 scr diabetes Anemia screening 1404210 07 Z13.0 scr anemia Hepatitis C screening 41 7223186 Z11.59 scr hep c Hyperlipid emia screening 470759571 Z13.220 scr lipi [id number] Mara Pal APRN [facility]PR[facility] ARY_NICHOLENA NDINA [address] [place] [address] 01/14/2021 14:19:54 01/14/2021 15:01:42 Increased frequency of urination 014347401 R35.0 see above Tobacco de pendence syndrome 80513082 F17.200 3-10 minutes spent counsellin g on smoking cessation. Reviewed the risk of smoking including health and socioecono gurmeet. Discussed benefits of cessation and methods including medication s, replacemen t and alternativ e therapies, self/behav ior cessation and counsellin g treatments as appropriat e. Also detailed e-cig vs smoking risks if appropriat e. Recommende d cessation with planned stop date and support. Normal bod y mass index 76092325 Z68.20 BMO =20.1 Degenerati on of cervical intervertebral disc 29218242 M50.30 see above. managed by [facility] Degenerati on of lumbar intervertebral disc 04934360 M51.36 see above. managed by [facility] spine and pain Depression screening 171 380202 Z13.31 PHQ-2=08/11 7 at [facility] edu cation given 155100630 Z71.9 Reviewed careplan with patient/ca regiver. Changes made where necessary, discussed obstacles and limitation s. Dysuria 92349323 R30.0 see aboveRevie wed new medication with patient including name, indication , dosage, frequency, adverse effects, contraindi cations/ca utions, safety/ins tructions, and special instructio ns. Patient verbalized understand ing. Low back pain 541216285 M54.5 advised patient to push fluids and take meds as directed. Chronic back pain 485883 002 M54.9 Referral to [facility] - see patient order group - Dr. Mary Pablo ordering provider d/t insurance Mixed anxi ety and depressive disorder 266791745 F41.8 HANSA - ANN-7 =, PHQ-9 =09/05. Denies HI/SI. We discussed pharmacoth erapy options - letty preston d/t patient being on chronic opioid therapy she is limited to medication s due to interactio ns . Trial of hydroxyzin e not effective. Declines Psychiatry and referral at this time Reports she i smanaging symptoms Hyperlipid emia screening 342310209 Z13.220 scr lipi Anemia screening 9577897 07 Z13.0 scr anemia Thyroid di sorder screening 379047508 Z13.29 Diabetes m ellitus screening 972222384 Z13.1 scr diabetes Hepatitis C screening 41 4242990 Z11.59 scr hep c Paresthesia 76398039 R20 .2 see above Insomnia 669531750 G47.0 0 Reviewed new medication with patient including name, indication , dosage, frequency, adverse effects, contraindi cations/ca utions, safety/ins tructions, and special instructio ns. Patient verbalized understand ing. Microscopic hematuria 19 8342935 R31.29 Urinalysis dipstick in clinic on 07/13/2020 with moderate blood. Urine culture on 07/13/2020 - for UTI. Advised patient to repeat urine complete to be done at [facility] ed. New medica tion commenced 749267461 Z71.89 New medication started or change in medication discussed. Reviewed indication s, possible drug interactio ns, side effects and indicators to stop. Patient and/or caregiver understand s. [id number] TANMAY SolizPE_PRIM SUHA_JILLIAN MONTEIROINA [address] [place] [address] 05/25/2021 13:22:37 05/25/2021 14:27:58 Body mass index less than 20 713911316 Z68.1 Acute left otitis media 744860291 H66.92 New medica tion commenced 281357062 Z71.89 New medication started or change in medication discussed. Reviewed indication s, possible drug interactio ns, side effects and indicators to stop. Patient and/or caregiver understand s. Health Concerns Section Related Observation LastModified by Organization Detai ls LastModified Time None Recorded Concern Status LastModified by Organization Details LastModified Time None Recorded Advance Directives Directive N: Payers Encounter Date Sequence Insurance Name Policy Number Policy Lemus Covered Member ID Lemus Member ID Guarantor Name 07/22/2020 1 [facility] - [place] [facility] Broderick C Filiault [id number] Broderick Filiault 08/26/2020 1 [employer] [place] Broderick C Filiault [id number] Broderick Filiault 09/01/2020 1 [employer] [place] - [place] Broderick C Filiault [id number] Broderick Filiault 01/14/2021 1 [employer] [place] - [place] Broderick Filiault [id number] Broderick Filiault 05/25/2021 1 [employer] [place] - [place] Broderick Filiault [id number] Broderick Filiault Notes Date Note Type Note Provider Name and Address Organization Details Recorded Time 08/26/2020 text/html Patient acknowle dged, consented, and participated in this {{telephone - audio only visit. telephone - audio and video visit which was conducted using secure real time audio and video.*}} Patient co-pay amounts may apply to virtual services when coverage is available per your payor. If coverage is not available, patient assumes responsibility for payment. {{Yes* No}} HPI: Patient acknowledged consented and participated in this virtual visit, which was conducted using secure real time audio and video. Total time spent on medical discussion: Persons present during virtual visit: Patient is a 55-year-old white female here for follow-up for urine results, DDD cervical and lumbar spine, tobacco cessation Review [facility] records. Last ER visit on 05/27/2020: Patient presented with 3 days of flank pain. BP = 143/107. Labs noted: Elevated WBC 11.65, sodium = 129, potassium = 2.2, calcium = 10.7. Elevated AST/ALT = 73/67. Pyuria with hematuria CT renal pelvis: Minimal right-sided hydronephrosis without evidence of obstructing ureteral calculus. Colonic diverticulosis without evidence of focal diverticulitis. She is diagnosed with gram-negative bacterial UTI and hypokalemia from persistent vomiting. Nausea and persistent vomiting probably multifactorial from UTI and narcotic withdrawal been unable to keep oral medications down. E. coli UTI. Hemoconcentration with hemoglobin 16.6 and macrocytosis. Hypercalcemia from hemoconcentration and dehydration. Chronic pain and chronic narcotic therapy managed by Dr. Luna from pain management. She was admitted as inpatient.Patient was discharged on 05/29/2020. She was prescribed ciprofloxacin, dicyclomine, ondansetron.07/13/2020 urine culture negative for UTIPatient reports she is no longer having urinary symptoms.States she completed cologuard on 08/24/2020. New Patient visit on 07/12/2020:Specialists: [facility] : Dr. Jaime SANTO 07/09/2020 Needs to change to [facility] due to insurance - requesting referral Review of [facility] records. Last ER visit on 05/27/2020: Patient presented with 3 days of flank pain. BP = 143/107. Labs noted: Elevated WBC 11.65, sodium = 129, potassium = 2.2, calcium = 10.7. Elevated AST/ALT = 73/67. Pyuria with hematuria CT renal pelvis: Minimal right-sided hydronephrosis without evidence of obstructing ureteral calculus. Colonic diverticulosis without evidence of focal diverticulitis. She is diagnosed with gram-negative bacterial UTI and hypokalemia from persistent vomiting. Nausea and persistent vomiting probably multifactorial from UTI and narcotic withdrawal been unable to keep oral medications down. E. coli UTI. Hemoconcentration with hemoglobin 16.6 and macrocytosis. Hypercalcemia from hemoconcentration and dehydration. Chronic pain and chronic narcotic therapy managed by Dr. Luna from pain management. She was admitted as inpatient.Patient was discharged on 05/29/2020. She was prescribed ciprofloxacin, dicyclomine, ondansetron. PMH includes: 1) chronic pain on chronic narcotic therapy ? O xycodone 7.[address] Luna pain management. 2)Degenerative disc disease of her spine - h/o bursitis of hips b/l, knees b/l 3) diverticulosis 4)Tobacco use disorder 5) Urinary incontinence wears poise - does kegels exercise CC: Feeling numbness and tingling to fingers and arms.H/O DDD cervical and lumbar spine - will discuss with pain management PSH: 1) arthroscopy right knee 2) bilateral hip surgery in [place] due to bursitis 3) fractures facial as a child from playground accident requiring surgery 4) tubal removed FH: Diabetes - mother Last CPE: reports has been within a year Last PAP: approx 1 year ago +yeast infection otherwise normal Last Mammogram: Last mammogram at [facility] this year - normal Last Colonoscopy: has not had colonoscopy - had one in [place] DEXA: has not had one Immunizations needed: Flu vaccine Social History: Has BF with esophageal Cancer 38 yo, 25 yo , 23 yo, 10 grandparents Living in [place] - with Kyle significant other On disability - SSI Education: some college Enjoys gardening Moved 2 yrs ago [facility] Mara Pal, PRINT MANAGER [address], [place], [address] 08/26/2020 16:39:32 09/01/2020 text/html Patient is a 54 year old female here to establish primary care with the practice as a new patient. Previous PCP: Dr. Wilder Perry Specialists: [facility] : Dr. Jaime SANTO 07/09/2020 Needs to change to [facility] due to insurance - requesting referral Review of [facility] records. Last ER visit on 05/27/2020: Patient presented with 3 days of flank pain. BP = 143/107. Labs noted: Elevated WBC 11.65, sodium = 129, potassium = 2.2, calcium = 10.7. Elevated AST/ALT = 73/67. Pyuria with hematuria CT renal pelvis: Minimal right-sided hydronephrosis without evidence of obstructing ureteral calculus. Colonic diverticulosis without evidence of focal diverticulitis. She is diagnosed with gram-negative bacterial UTI and hypokalemia from persistent vomiting. Nausea and persistent vomiting probably multifactorial from UTI and narcotic withdrawal been unable to keep oral medications down. E. coli UTI. Hemoconcentration with hemoglobin 16.6 and macrocytosis. Hypercalcemia from hemoconcentration and dehydration. Chronic pain and chronic narcotic therapy managed by Dr. Luna from pain management. She was admitted as inpatient.Patient was discharged on 05/29/2020. She was prescribed ciprofloxacin, dicyclomine, ondansetron. PMH includes: 1) chronic pain on chronic narcotic therapy ? O xycodone 7.[address] Luna pain management. 2)Degenerative disc disease of her spine - h/o bursitis of hips b/l, knees b/l 3) diverticulosis 4)Tobacco use disorder 5) Urinary incontinence wears poise - does kegels exercise PSH: 1) arthroscopy right knee 2) bilateral hip surgery in [place] due to bursitis 3) fractures facial as a child from playground accident requiring surgery 4) tubal removed FH: Diabetes - mother Last CPE: reports has been within a year Last PAP: approx 1 year ago +yeast infection otherwise normal Last Mammogram: Last mammogram at [facility] this year - normal 06/18/2019 Last Colonoscopy: has not had colonoscopy - Cologuard negative DEXA: has not had one Immunizations needed: Flu vaccine Social History: Has BF with esophageal Cancer 38 yo, 25 yo , 23 yo, 10 grandparents Living in [place] - with Kyle significant other On disability - SSI Education: some college Enjoys gardening Moved 2 yrs ago [facility] Mara Pal, PRINT MANAGER [address], [place], [address], [facility] 09/01/2020 15:08:08 01/14/2021 text/html Patient is a 54 year old female here for acute OV .CC: urinary frequency, right flank pain, dysuria x 3 daysH/O e-coli UTI Specialists: Has upcoming appt next week with [facility] mg[facility] Review of [facility] records. Last ER visit on 05/27/2020: Patient presented with 3 days of flank pain. BP = 143/107. Labs noted: Elevated WBC 11.65, sodium = 129, potassium = 2.2, calcium = 10.7. Elevated AST/ALT = 73/67. Pyuria with hematuria CT renal pelvis: Minimal right-sided hydronephrosis without evidence of obstructing ureteral calculus. Colonic diverticulosis without evidence of focal diverticulitis. She is diagnosed with gram-negative bacterial UTI and hypokalemia from persistent vomiting. Nausea and persistent vomiting probably multifactorial from UTI and narcotic withdrawal been unable to keep oral medications down. E. coli UTI. Hemoconcentration with hemoglobin 16.6 and macrocytosis. Hypercalcemia from hemoconcentration and dehydration. Chronic pain and chronic narcotic therapy managed by Dr. Luna from pain management. She was admitted as inpatient.Patient was discharged on 05/29/2020. She was prescribed ciprofloxacin, dicyclomine, ondansetron. PMH includes: 1) chronic pain on chronic narcotic therapy ? O xycodone 7.[address] Luna pain management. 2)Degenerative disc disease of her spine - h/o bursitis of hips b/l, knees b/l 3) diverticulosis 4)Tobacco use disorder 5) Urinary incontinence wears poise - does kegels exercise 6) insomnia - Patient has difficulty falling and staying asleep. Reports trazodone is very effective for her. Social History: Has BF with esophageal Cancer 38 yo, 25 yo , 23 yo, 10 grandparents Living in [place] - with Kyle significant other On disability - SSI Education: some college Enjoys gardening Moved 2 yrs ago [facility] Mara Pal, PRINT MANAGER [address], [place], [address], [facility] 01/14/2021 15:00:37 05/25/2021 text/html Patient is a 55-year-old female here for acute office visit. PMH includes cervical spondylosis, primary insomnia, lumbar sacral spondylosis, generalized anxiety disorder, chronic depression, HTN, insomnia, fibromyalgia, chronic pain syndrome, tobacco dependence syndrome.Medications include: Trazodone, medical marijuana Patient reports that her left ear started bothering her a couple days ago. She has been using Debrox earwax softener drops thinking that it was earwax. She has not noted any otorrhea. She denies any fever, chills, sinus pain, headache. Reports that she does have some allergies and occasionally will have clear rhinorrhea. She denies any postnasal drip, shortness of breath, cough. She has not had a recent URI or sinus infection. She does not swim and has not gotten any water into her ear. Reports that she is prone to ear infections. She continues to smoke and does not want to quit at this time. Mara Pal, PRINT MANAGER [address], [place], [address], [facility] - [facility] 05/25/2021 13:47:18 OBGyn Episode No OBEpisode recorded.
--- OUTSIDE RECORDS SUMMARY | 2024-11-20 15:31 | XMS_ITS ---
Author Organization Paresh Strong III, MD Address [address] [facility] [place] [address] Care Team Providers Care Hvac R Instructor Name Role Phone Paresh Strong Primary Care Provider [phone] Allergies Allergen (clinical drug ingredient) Drug/Non Drug Allergy documented on EMR Reaction Allergy Type Onset Date Status amoxicillin / clavulanate Augmentin vomiting Drug Allergy Active REASON FOR VISIT follow up Medications Medication SIG (Take, Route, Frequency, Duration) Notes Start Date End Date Status Oyster Shell Calcium 500 MG TAKE ONE TAB LET BY MOUTH TWICE A DAY DIRECTED Active Vitamin D3 25 MCG (1000 UT) TAKE ONE TAB LET BY MOUTH EVERY DAY Active Myrbetriq 50 MG TAKE ONE TABLET BY M OUTH EVERY DAY Oral Active Ondansetron 4 MG DISSOLVE ONE TABLET BY MOUTH EVERY 8 HOURS NEEDED FOR NAUSEA AND VOMITING Oral Active Nystatin 720481 UNIT/ML TAKE 5ML BY MOUT H 4 TIMES A DAY FOR 11 DAYS Mouth/Throat Active Metoprolol Tartrate 25 MG TAKE ONE HALF TABLET BY MOUTH TWICE DAILY Oral Active Ventolin HFA 108 (90 Base) MCG/ACT 1 puff as needed Inhalation every 4 hrs 05/08/2024 Active Valsartan 40 MG 1/2 tablet Orally Tw ice a day Active Social History Tobacco Use: Social History [...] User Heavy cigarett e smoker (20-39 cigs/day) Encounters Encounter Location Date Provider Diagnosis Paresh Strong III, MD [address] [place] [address] [place] [address] 06/25/2024 Paresh Strong Essential hypertensi on I10 Assessments Encounter Date Diagnosis (ICD Code) Assessment Notes Treat ment Notes Treatment Clinical Notes 06/25/2024 Essential hypertension (ICD-10 - I10) Her blood presssure today iss 120/75. No change in her regimen is needed. Plan Of Treatment Medication Medication Name Sig Start Date Stop Date Notes Oyster Shell Calcium 500 MG TAKE ONE TAB LET BY MOUTH TWICE A DAY DIRECTED Vitamin D3 25 MCG (1000 UT) TAKE ONE TAB LET BY MOUTH EVERY DAY Myrbetriq 50 MG TAKE ONE TABLET BY M OUTH EVERY DAY Oral Ondansetron 4 MG DISSOLVE ONE TABLET BY MOUTH EVERY 8 HOURS NEEDED FOR NAUSEA AND VOMITING Oral Nystatin 773042 UNIT/ML TAKE 5ML BY MOUT H 4 TIMES A DAY FOR 11 DAYS Mouth/Throat Metoprolol Tartrate 25 MG TAKE ONE HALF TABLET BY MOUTH TWICE DAILY Oral Ventolin HFA 108 (90 Base) MCG/ACT 1 puff as needed Inhalation every 4 hrs 05/08/2024 Valsartan 40 MG 1/2 tablet Orally Tw ice a day Next Appt Details Provider Name:Paresh Strong, 11/27/2024 11:30:00 AM, [address] [place] [address] [address], [place], [address], Provider Name:Paresh Strong, 02/20/2025 11:00:00 AM, [address] [place] [address] [place], [address], Provider Name:Paresh Strong, 11/24/2025 11:00:00 AM, [address] [place] [address] [place], [address], Progress Notes * Cathie THAKKAR CDOB:[birth year] (59 yo F)Acc No.[id number]:06/25/2024 Progress Notes Patient:?Cathie THAKKAR Provider:?Paresh Strong MD :1965???Age:58 Y???Sex:Female D ate:06/25/2024 Address:[facility] [id number] Subjective: * Chief Complaints: * ???1. Follow up. * HPI: ???COVID-19 Screening:?Questions?Have you had any new onset fever, chills, cough, congestion, sore throat, shortness of breath, muscle aches??No ?Have you been exposed to the virus within the last 10 days??No ?Have you travelled internationally in the last 10 days??No ?Have you been exposed to COVID-19 in the past??No * ROS:?General/Constitutional:?pain?only normal aches and pains.?Chills?denies.?Fatigue?admits.?Fever?denies.?ENT:?Decreased hearing?denies.?Respiratory:?Cough?denies.?Cardiovascular:?Chest [...] of colonoscopy , Last menstrual period 2014 . * Hospitalization/Major Diagno stic Procedure:?Denies Past Hospitalization. [...] substance use disorder. * Social History:?Tobacco Use:?Tobacco Use/Smoking?Patient is a?current smoker ?How often do you smoke cigarettes??every day ?How many cigarettes a day do you smoke??11-20 ?How soon after you wake up do you smoke your first cigarette??6-30 minutes ?Are you interested in quitting??Not ready to quit ?Additional Findings: Tobacco User?Heavy cigarette smoker (20-39 cigs/day) ???She was born in [place], [place]. She moved to [place] at the age of 53 and has [...] MOUTH TWICE A DAY DIRECTED , Taking Valsartan 40 MG Tablet 1/2 tablet Orally Twice a day , Taking Ventolin HFA 108 (90 Base) MCG/ACT Aerosol Solution 1 puff as needed Inhalation every 4 hrs , Taking Metoprolol Tartrate 25 MG Tablet TAKE ONE HALF TABLET BY MOUTH TWICE DAILY Oral , Taking Nystatin 464756 UNIT/ML Suspension TAKE 5ML BY MOUTH 4 [...] ONE TABLET BY MOUTH EVERY DAY , Medication List reviewed and reconciled with the patient * Allergies:?Augmentin: vomiti ng. Objective: * Vitals:? * Examination: ???General Examination: ?GENERAL APPEARANCE:?pleasant, well [...] sensory exam intact.?PSYCH:?alert, oriented.? Assessment: * Assessment: 1.?Essential hypertension - I10???Notes :Her blood presssure today iss 120/75. No change in her regimen is needed.??? Plan: * Treatment: 2.?Others? Continue Oyster Shell Calcium Tablet, 500 MG, TAKE ONE TABLET BY MOUTH TWICE A DAY DIRECTED;?Continue Valsartan Tablet, 40 MG, 1/2 tablet, Orally, Twice a day;?Continue Ventolin HFA Aerosol Solution, 108 (90 Base) MCG/ACT, 1 puff as needed, Inhalation, every 4 hrs;?Continue Metoprolol Tartrate Tablet, 25 MG, TAKE ONE HALF TABLET BY MOUTH TWICE DAILY, Oral;?Continue Nystatin Suspension, 185552 UNIT/ML, TAKE 5ML BY MOUTH 4 TIMES A DAY FOR 11 DAYS, Mouth/Throat;?Continue Ondansetron Tablet Disintegrating, 4 MG, DISSOLVE ONE TABLET BY MOUTH EVERY 8 HOURS NEEDED FOR NAUSEA AND VOMITING, Oral.?? * Images: * The named appointment provid er may or may not be the originator of this progress note, and it is not deemed complete until electronically signed by the appointment provider. Sign off status: Pending * Provider:?Paresh Strong MD Date:?06/10 Generated for Sajan roberts/Crystal/Carlaitting on:?11/20/2024 03:30 PM EDT History and Physical Notes * HPI (History of Present Illness) Category Sub-Category Detail Notes COVID-19 Screening Questions Have you had any new onset fever, chills, cough, congestion, sore throat, shortness of breath, muscle aches?: No Have you been exposed to the virus withi n the last 10 days?: No Have you travelled internationally in e last 10 days?: No Have you been exposed to COVID-19 in the past?: No Examination Category Sub-Category Detail Notes General Examination [...]
== END 2024-11-20 12:07 | disposition home or self-care (01) ==
LOC: HO.XRAY 12:06
PROVIDERS: PCP Internal Medicine Medical Oncology; Visit Provider Internal Medicine Medical Oncology
DX: M79.641 Pain in right hand (principal)
CPT/HCPCS: 73130

== ENCOUNTER → 2024-11-20 12:19 | Outpatient (BNV) | payer OTHER, SELFPAY | PROVIDERS: PCP Internal Medicine Medical Oncology; Visit Provider Radiology Diagnostic Radiology | DX: M79.641 Pain in right hand (principal) | CPT/HCPCS: 73130 ==

== ENCOUNTER 2024-11-25 09:45 | Outpatient (REF) | payer OTHER, SELFPAY | END 2024-11-25 09:46 | disposition home or self-care (01) | LOC: HO.HOSX 09:45 | PROVIDERS: Visit Provider Orthopaedic Surgery | DX: Z13.89 Encounter for screening for other disorder (principal) ==

== ENCOUNTER 2024-11-26 10:13 | Outpatient (AMB) | payer OTHER, SELFPAY ==
--- NOTE | 2024-11-26 10:24 | A.OFFVIS_ITS ---
Vital Signs 11/26/24 10:25 Height 5 ft 2 in Weight 113 lb BMI 20.7 Intake Visit Reasons: FC- RT IF, MF, PF fx, DOI 08/27/24 Intake Note: Cathie is a 59 year old left hand dominant female who presents today as a new patient for a fracture care visit of her right hand 2nd, 3rd, and 4th digits s/p falling down 08/27/24. States she did not seek medical advise. She did RICE, elevation and splinted it herself for a few weeks. She removed splint a few weeks later and her finger were stiff at her PIP joint. She also has a ring in her ring finger that she is not able to remove. Denies numbness or tingling. Allergies amoxicillin [From Augmentin] Allergy (Intermediate, Verified 11/26/24 10:29) Vomiting clavulanic acid [From Augmentin] Allergy (Intermediate, Verified 11/26/24 10:29) Vomiting nitrofurantoin Adverse Reaction (Severe, Verified 11/26/24 10:29) Shortness of Breath HPI HPI FC- RT IF, MF, PF fx, DOI 08/27/24: Details: Cathie is a 59 year old left hand dominant woman who presents for right hand pain & stiffness. She has a hx of multiple finger fractures that went untreated, after a fall, DOI: 08/27/24. She splinted her fingers at home. She complains of pain and stiffness in her index, middle, and ring fingers, particularly at the PIP joints. She says she has been limiting the use of her right hand since her injury, but finds this difficult. She also says she has a ring on her ring finger, and is not able to remove it. She says she has arthritis throughout her body, which she feels is limiting her. She is unemployed due to disability [facility] Medical History Hx of sigmoidoscopy Pyelonephritis Nephrolithiasis Ureterolithiasis Insomnia History of hypertension Tobacco dependence Urinary incontinence Lumbar spinal stenosis Cervical spondylosis Lumbar radiculopathy Fibromyalgia Degenerative joint disease of spine Surgical History S/P laparoscopic colectomy (04/21/24) H/O colonoscopy History of facial surgery History of salpingectomy History of hip surgery History of right knee surgery Family History Father Esophageal cancer Mother Diabetes mellitus Maternal Grandfather Diabetes mellitus Social History (Updated 11/26/24 @ 10:30 by DANNA Cabrera) Household Members: Family Household Members Other:: Patient lives by herself Housing: House Do you presently have visiting nurse or other home services: No Alcohol intake: current Alcohol intake frequency: 3 or more drinks per day Alcohol type: beer Patient Tobacco Use Status: Current everyday Tobacco user Tobacco use type: Cigarette Cigarette Packs Per Day: 1 Cigarettes Per Day: 20.0 Years Smoked: 30 Substance Use Type: Marijuana Advance Directives Date on File: 05/28/23 service: No Current occupational status: disabled Current occupation: left hand Sexual orientation: Straight/Heterosexual Gender identity: Female Review of Systems Const All systems reviewed & are unremarkable except as noted in HPI and below Physical Exam Vital Signs: BMI result Body Mass Index 20.7 Const General: cooperative, healthy appearing and no acute distress Orientation/consciousness: patient oriented x3 HEENT Head: Yes normocephalic and Yes atraumatic Eyes EOM: EOMs intact bilaterally Resp Effort & Inspection: normal respiratory effort and able to speak in complete sentences Cardio Jugular venous distension: no JVD Skin General skin exam: turgor normal Rashes: no rashes Neuro General: patient oriented x3 Extrem Other: Evaluation of Right Upper Extremity: The patient is alert, oriented, and in no acute distress Neuro: Median, Ulnar, Radial nerves motor and sensory intact and sensation is normal to the tips of all digits Vascular: Cap refill brisk ROM: She has visible apex volar deformities to the index & middle finger proximal phalanx bases We worked on ROM exercises for more than 15 minutes today in clinic. Initially she was able to actively bring her index & middle fingertips to ~6cm from her palm Before leaving clinic: She could bring her index & middle fingertips to ~3cm from her palm She also has slight flexion contractures of the PIP joints of the index and middle fingers though these appear to be reducible by placing them flat on the table. Active ROM of the ring finger PIP joint is from ~40-80 degrees of flexion I did not try to push ROM of that joint given the severe injury seen on radiographs Full ROM of the thumb & small finger Skin: No lacerations or abrasions. General: No Ecchymosis. No Erythema or evidence of infection. Radiographs: 3 views of the right hand were taken and viewed by me today in clinic. They show : 1. Right index finger proximal phalanx base fracture malunion with ~14 degrees of apex volar angulation 2. Right middle finger proximal phalanx base fracture malunion, with ~ 25 degrees of apex volar angulation 3. Right ring finger middle phalanx base fracture malunion, rather severe, that essentially healed with the dorsal subluxation of the joint, and a fairly large volar fracture fragment piece Psych Appearance: grossly normal Affect: normal affect Attitude: cooperative Office Procedures AMB Fracture Care Details: No fracture, manual therapy in clinic greater than 15 minutes [id number] Fracture Billing Code: Fracture Billing Code Assessment & Plan Assessment & Plan (1) Stiffness of right hand joint: Code(s): M25.641 - Stiffness of right hand, not elsewhere classified Category: Medical (2) Disp fracture of proximal phalanx of right index finger with malunion: Code(s): S62.610P - Displaced fracture of proximal phalanx of right index finger, subsequent encounter for fracture with malunion Category: Medical (3) Disp fracture of proximal phalanx of right middle finger with malunion: Code(s): S62.612P - Displaced fracture of proximal phalanx of right middle finger, subsequent encounter for fracture with malunion Category: Medical (4) Closed fracture of middle phalanx of right ring finger with malunion: Code(s): S62.624P - Displaced fracture of middle phalanx of right ring finger, subsequent encounter for fracture with malunion Category: Medical (5) Nondisp fx of proximal phalanx of right middle finger with malunion: Code(s): S62.642P - Nondisplaced fracture of proximal phalanx of right middle finger, subsequent encounter for fracture with malunion Category: Medical (6) Fracture of proximal phalanx of right index finger: Code(s): S62.610A - Displaced fracture of proximal phalanx of right index finger, initial encounter for closed fracture Category: Medical (7) Fracture of middle phalanx of right ring finger: Code(s): S62.624A - Displaced fracture of middle phalanx of right ring finger, initial encounter for closed fracture Category: Medical Plan Assessment & Plan: 1. Right hand stiffness, S/P injury DOI: 08/27/24 from a fall onto her hand 2. Right index finger proximal phalanx base fracture, malunion with ~14 degrees of apex volar angulation From an injury, DOI: 08/27/24 3. Right middle finger proximal phalanx base fracture, malunion with ~ 25 degrees of apex volar angulation From an injury, DOI: 08/27/24 4. Right ring finger middle phalanx base fracture, malunion This was essentially a fracture dislocation that went untreated From an injury, DOI: 08/27/24 Range of motion 40-80 degrees I educated her about these conditions I discussed operative & non-operative treatment options. I am not recommending surgery at this time. I recommend activity modification, and working on improving index and middle finger range of motion and she is in agreement I discussed activity modifications, she is to use her hand for more normal activities at this time She will perform ROM exercises at home, 20x daily every hour, with a focus on index & middle finger ROM We worked on ROM exercises for more than 15 minutes today in clinic I ordered OT hand therapy to work on stretching, ROM, and normalizing function In regards to the ring at the base of her ring finger, this is snug but not tight, and there is no way currently to remove this. I recommend she speak with a jeweller or other professional to have this cut off & removed from her ring finger. She expressed understanding I am hoping we can avoid the need for surgery if she can improve her range of motion some for the index and middle fingers. Given the severity of the injury to the ring finger PIP joint I would not pursue trying to improve range of motion much at all. My hope is to avoid her needing an arthrodesis in the future. She will follow up in 6-8 weeks for a ROM check Please note that greater than 45 minutes was spent with this patient going over the history, evaluating the patient and radiographs, formulating possible treatment options, discussing them with the patient, and documenting the visit. Scribed for Kalina De La Torre MD by Brendon Frazier, medical orderly, on 11/26/24 at 10:35 AM, EST. Orders: Orders OT Evaluation and Treatment Today S62.610P - Displaced fracture of proximal phalanx of right index finger, subsequent encounter for fracture with malunion, S62.612P - Displaced fracture of proximal phalanx of right middle finger, subsequent encounter for fracture with malunion, S62.624P - Displaced fracture of middle phalanx of right ring finger, subsequent encounter for fracture with malunion XR hand RT min 3V Today M79.641 - Pain in right hand Coding Level of Care Code New Pt Level 4 (13968) Diagnoses Stiffness of right hand joint M25.641 Disp fracture of proximal phalanx of right index finger with malunion S62.610P Disp fracture of proximal phalanx of right middle finger with malunion S62.612P Closed fracture of middle phalanx of right ring finger with malunion S62.624P Nondisp fx of proximal phalanx of right middle finger with malunion S62.642P Fracture of proximal phalanx of right index finger S62.610A Fracture of middle phalanx of right ring finger S62.624A CPT Codes Fracture Care - Fracture Billing Code: Fracture Billing Code ([id number])
[2024-11-26 10:25] VITALS: BMI 20.7
--- NOTE | 2024-11-26 10:25 | A.OFFVIS_ITS ---
Vital Signs 11/26/24 10:25 Height 5 ft 2 in Weight 113 lb BMI 20.7 Intake Visit Reasons: FC- RT IF, MF, PF fx, DOI 08/27/24 Allergies amoxicillin [From Augmentin] Allergy (Intermediate, Verified 11/26/24 10:29) Vomiting clavulanic acid [From Augmentin] Allergy (Intermediate, Verified 11/26/24 10:29) Vomiting nitrofurantoin Adverse Reaction (Severe, Verified 11/26/24 10:29) Shortness of Breath PFSH Medical History Hx of sigmoidoscopy Pyelonephritis Nephrolithiasis Ureterolithiasis Insomnia History of hypertension Tobacco dependence Urinary incontinence Lumbar spinal stenosis Cervical spondylosis Lumbar radiculopathy Fibromyalgia Degenerative joint disease of spine Surgical History S/P laparoscopic colectomy (04/21/24) H/O colonoscopy History of facial surgery History of salpingectomy History of hip surgery History of right knee surgery Family History Father Esophageal cancer Mother Diabetes mellitus Maternal Grandfather Diabetes mellitus Social History (Updated 11/26/24 @ 10:30 by DANNA Cabrera) Household Members: Family Household Members Other:: Patient lives by herself Housing: House Do you presently have visiting nurse or other home services: No Alcohol intake: current Alcohol intake frequency: 3 or more drinks per day Alcohol type: beer Patient Tobacco Use Status: Current everyday Tobacco user Tobacco use type: Cigarette Cigarette Packs Per Day: 1 Cigarettes Per Day: 20.0 Years Smoked: 30 Substance Use Type: Marijuana Advance Directives Date on File: 05/28/23 service: No Current occupational status: disabled Current occupation: left hand Sexual orientation: Straight/Heterosexual Gender identity: Female Physical Exam Vital Signs: BMI result Body Mass Index 20.7 Assessment & Plan Assessment & Plan Orders: Orders XR hand RT min 3V Today M79.641 - Pain in right hand Coding
== END 2024-11-26 11:07 | disposition home or self-care (01) ==
LOC: HO.HOS 10:13
PROVIDERS: PCP Internal Medicine Medical Oncology; Visit Provider Orthopaedic Surgery
DX: M25.641 Stiffness of right hand, not elsewhere classified (principal); S62.610 Displaced fracture of proximal phalanx of right index finger; S62.612 Displaced fracture of proximal phalanx of right middle finger; S62.624P Displaced fracture of middle phalanx of right ring finger, subsequent encounter for fracture with malunion; S62.642 Nondisplaced fracture of proximal phalanx of right middle finger; S62.610A Displaced fracture of proximal phalanx of right index finger, initial encounter for closed fracture; S62.624A Displaced fracture of middle phalanx of right ring finger, initial encounter for closed fracture
CPT/HCPCS: 99203

== ENCOUNTER → 2024-11-26 10:14 | Outpatient (BNV) | payer OTHER, SELFPAY | PROVIDERS: Visit Provider Radiology Diagnostic Radiology | DX: S62.611A Displaced fracture of proximal phalanx of left index finger, initial encounter for closed fracture (principal); S62.624A Displaced fracture of middle phalanx of right ring finger, initial encounter for closed fracture; S62.612A Displaced fracture of proximal phalanx of right middle finger, initial encounter for closed fracture | CPT/HCPCS: 73130 ==

== ENCOUNTER 2024-11-26 12:07 | Outpatient (REF) | payer OTHER, SELFPAY ==
--- NOTE | ~2024-11-26 | XR_ITS ---
EXAMINATION: XR HAND 3 OR MORE VIEWS RIGHT HISTORY: M79.641 - Pain in right hand COMPARISON: Comparison is made with the prior examination dated 11/20/2024. FINDINGS: Three views of the right hand are submitted. The bones are osteopenic. Again seen are fractures of the bases of the proximal phalanges of the index and middle fingers and the base of the middle phalanx of the ring finger. The fracture lines remain visible. The joint spaces are preserved. The soft tissues are unremarkable. XR/XR hand RT min 3V IMPRESSION: Fractures of the bases of the proximal phalanges of the index and middle fingers and the base of the middle phalanx of the ring finger. Electronically signed by: Paresh Dennis MD 11/26/2024 01:40 PM EDT
== END 2024-11-26 12:08 | disposition home or self-care (01) ==
LOC: HO.HOSX 12:07
PROVIDERS: Visit Provider Orthopaedic Surgery
DX: S62.610 Displaced fracture of proximal phalanx of right index finger (principal); S62.612 Displaced fracture of proximal phalanx of right middle finger; S62.642 Nondisplaced fracture of proximal phalanx of right middle finger; S62.624P Displaced fracture of middle phalanx of right ring finger, subsequent encounter for fracture with malunion; M79.641 Pain in right hand; M25.641 Stiffness of right hand, not elsewhere classified
CPT/HCPCS: 73130; 97140; 99202

== ENCOUNTER 2024-11-27 11:59 | Outpatient (REF) | payer OTHER, SELFPAY ==
--- NOTE | ~2024-11-27 | XR_ITS ---
EXAMINATION: XR PARANASAL SINUSES 3 VIEWS HISTORY: PAIN MAXILLARY SINUS COMPARISON: There are no prior studies for comparison. FINDINGS: Four views of the paranasal sinuses are submitted. The bilateral frontal, maxillary, ethmoid, and sphenoid sinuses are well-aerated and clear. There are sutures in the frontal regions. XR/XR sinus min 3V IMPRESSION: Unremarkable examination of the paranasal sinuses. Electronically signed by: Paresh Dennis MD 11/28/2024 08:26 AM EDT
== END 2024-11-27 12:00 | disposition home or self-care (01) ==
LOC: HO.XRAY 11:59
PROVIDERS: PCP Internal Medicine Medical Oncology; Visit Provider Internal Medicine Medical Oncology
DX: J32.9 Chronic sinusitis, unspecified (principal); J34.89 Other specified disorders of nose and nasal sinuses
CPT/HCPCS: 70220

== ENCOUNTER → 2024-11-27 12:03 | Outpatient (BNV) | payer OTHER, SELFPAY | PROVIDERS: PCP Internal Medicine Medical Oncology; Visit Provider Radiology Diagnostic Radiology | DX: J32.9 Chronic sinusitis, unspecified (principal) | CPT/HCPCS: 70220 ==

== ENCOUNTER 2025-01-01 11:25 | Outpatient (REF) | payer OTHER, SELFPAY ==
[2025-01-01 13:27] LABS: Alanine Aminotransferase 32 U/L (0-31); Albumin Level 4.9 g/dL (3.5-5.0); Alkaline Phosphatase 74 U/L (39-117); Anion Gap 13 (12-20); Aspartate Amino Transferase 40 U/L (5-31); Bilirubin Total 0.7 mg/dL (0.0-1.0); Blood Urea Nitrogen 5 mg/dL (9-16); Carbon Dioxide 21 mmol/L (22-29); Chloride 101 mmol/L (96-108); Cholesterol 192 mg/dL (<200); Estimated Glomerular Filt Rate > 60; Glucose Fasting 91 mg/dL (60-99); HDL Cholesterol 64 mg/dL (>40); LDL Cholesterol Calculated 106 mg/dL (<100); Potassium 4.2 mmol/L (3.3-5.1); Sodium 131 mmol/L (135-145); Total Protein 8.5 g/dL (6.5-8.0); Triglycerides 114 mg/dL (<150)
[2025-01-01 13:36] LABS: PLT CLUMP 1; SCAN SMEAR FLAG 1
[2025-01-01 13:38] LABS: Basophils Absolute Auto 0.1 X10*3/uL (0.0-0.2); Basophils Percent Auto 0.9 % (0-2); Eosinophils Absolute Auto 0.2 X10*3/uL (0.0-0.4); Eosinophils Percent Auto 1.6 % (0-4); Hematocrit 43.6 % (37.0-47.0); Hemoglobin 15.4 g/dl (12.0-16.0); Imm Gran Abs Auto 0.08 X10*3/uL (0.00-0.03); Imm Gran Pct Auto 0.9 % (0.0-0.4); Lymphocytes Absolute Auto 2.8 X10*3/uL (1.2-4.9); Lymphocytes Percent Auto 29.9 % (20-40); MANUAL DIFF FLAG SCAN; Mean Corpuscular HGB Conc 35.3 g/dl (31.0-35.0); Mean Corpuscular Hemoglobin 34.6 pg (27.0-33.0); Monocytes Absolute Auto 0.6 X10*3/uL (0.1-1.2); Monocytes Percent Auto 6.8 % (2-11); Neutrophils Absolute Auto 5.6 x10*3/uL (2.0-8.3); Neutrophils Percent Auto 59.9 % (45-73); Red Blood Count 4.45 X10*6/uL (4.20-5.50); Red Cell Distribution Width 12.8 % (11.0-16.0)
--- OUTSIDE RECORDS SUMMARY | 2025-01-01 13:42 | XMS_ITS ---
Author Organization Paresh Strong III, MD Address [address] [facility] [place] [address] Care Team Providers Care Data Systems Analyst Name Role Phone Paresh Strong Primary Care [...] Provider Speciality Internal M edicine Referred Provider [facility], [facility] Referred Provider Specialty Otolaryngolo gy General Notes Kamilla Proctor CMA 12/01 10:25:29 AM > ref/progress note/x ray faxed to [facility] Referral Priority Routine REASON FOR VISIT Left maxillary sinus infection, [...] FOR NAUSEA AND VOMITING Oral Active Nystatin 695322 UNIT/ML TAKE 5ML BY MOUT H 4 [...] Problem Status W/U Status Risk Notes Problem 580569716 Closed displaced fracture of proximal phalanx of right index finger with delayed healing, subsequent encounter (S62.610G) Active confirmed She has 3 fractured fingers and will undergo a course of physical therapy under the supervision of the hand surgeon. Vital Signs Blood pressure systolic 139 mm Hg 11/28/19 25 Blood pressure diastolic 88 mm Hg 025 Heart Rate 78 /min 11/27/2024 Height 62 in 11/27/2024 Weight 117 lbs 11/27/2024 BMI 21.4 kg/m2 11/27/2024 Encounters Encounter Location Date Provider Diagnosis Paresh Strong III, MD [address] [place] [address] [place] [address] 11/27/2024 Paresh Strong Essential hypertensi on I10 [...] - N20.1) This diagnosis was made in [place] had an episode of renal colic. In [...] NEEDED FOR NAUSEA AND VOMITING Oral Nystatin 357271 UNIT/ML TAKE 5ML BY MOUT H 4 [...] Details 11/27/2024 11/27/2024, blocked left ear, of [facility] [place], [facility] Next Appt Details Follow Up: 1 Week, Reason: T V review x ray Provider Name:Paresh Strong, 03/05/2025 11:15:00 AM, [address] [place] [address] [address], [place], [address], Provider Name:Paresh Strong, 11/24/2025 11:00:00 AM, [address] [place] [address] [address], [place], [address], Progress Notes * Cathie THAKKAR CDOB:[birth year] (59 yo F)Acc No.[id number]:11/27/2024 Progress Notes Patient:?DAREKSOO Cathie C Provider:?Paresh Strong MD :1965???Age:59 Y???Sex:Female D ate:11/27/2024 Address:[address] [place] [address] [id number] Subjective: * Chief Complaints: * ???Left maxillary sinus infe ctionLumbar radiculopathyHypertensionTobacco dependenceUnderweight3 fractured fingers * HPI: ???COVID-19 Screening:? She has been to the hand surgeon after a recent x-ray of her hand showed 3 fractures.? The mobility of those 3 fingers is diminished.? A plan for physical therapy is in place.? It is felt that surgery will not be necessary.? A new complaint is pain in the left maxillary sinus for several days.? This is worsened if she bends her head forward.? She was given an antibiotic for sinusitis.? A follow-up visit was arranged.? She had no other acute complaints today.? She continues to smoke cigarettes and we discussed smoking cessation at length today again. ?Questions?Have you had any new onset fever, chills, cough, congestion, sore throat, shortness of breath, muscle aches??No * ROS:?General/Constitutional:?pain?3 fingers right hand.?Chills?denies.?Fatigue?admits.?Fever?denies.?ENT:?Decreased hearing?denies.?Respiratory:?Cough?non-productive.?Cardiovascular:?Chest pain with exertion?denies.?Dyspnea on exertion?denies.?Shortness of breath?denies.?Gastrointestinal:?Constipation?denies.?Decreased appetite?denies.?Diarrhea?denies.?Heartburn?denies.?Nausea?denies.?Rectal bleeding?denies.?Vomiting?denies.?Hematology:?bruising?denies.?petechiae?denies.?Swollen glands?none have been noted.?Genitourinary:?Frequent urination?at night.?Musculoskeletal:?Muscle aches?denies.?Painful joints?denies.?Sciatica?denies.?Weakness?denies.?Skin:?Itching?denies.?Rash?denies.?Skin lesion(s)?denies.?Neurologic:?Difficulty speaking?denies.?Dizziness?denies.?Headache?denies.?Low back pain?denies.?Psychiatric:?Depressed mood?denies.? * Medical History:? * Surgical History:?Facial rec onstruction Right knee patella reconstruction Bilateral hip surgery Etopic , right salpingectomy History of colonoscopy Last menstrual period 2014 Sigmoid Colectomy 04/2024 * Hospitalization/Major Diagno stic Procedure:?[facility], laparoscopic resection of colon 2023 * Family History:?Father: dece ased, diagnosed with [...] Findings: Tobacco user?Moderate cigarette smoker (10-19 cigs/day) ???She was born in [place], [place]. She moved to [place] at the age of 53 and has just returned due to the of Kyle,a significant other, from esophageal cancer. She has 3 children, Shayne 40, Mariana 36, Nyasia 33. She has 10 grandchildren. She is unemployed and disabled at this time due to degenerative disease of the spine. She is now single. * Medications:?TakingValsartan 40 MG Tablet 1/2 tablet Orally Twice a day Ventolin HFA 108 (90 Base) MCG/ACT Aerosol Solution two puffs Inhalation every 4 hrs for shortness of breath Metoprolol Tartrate 25 MG Tablet TAKE ONE HALF TABLET BY MOUTH TWICE DAILY Oral Twice a day Oyster Shell Calcium 500 MG Tablet TAKE ONE TABLET BY MOUTH TWICE A DAY DIRECTED Nystatin 175179 UNIT/ML Suspension TAKE 5ML BY MOUTH 4 [...] MOUTH TWICE A DAY DIRECTED Taking Nystatin 069982 UNIT/ML Suspension TAKE 5ML BY MOUTH 4 [...] reconciled with the patient * Allergies:?Augmentin: vomiti niall[Allergies Verified] Objective: * Vitals:?Ht: 62, Wt: 117, BMI :21.4, BP: 139/88, HR: 78, Wt-k.07. * Examination: ???General Examination: ?GENERAL APPEARANCE:?pleasant, well nourished, well developed, in no acute distress, calm and relaxed, woman.?HEAD:?atraumatic, normocephalic.?EYES:?eomi, perrla, anicteric, conjugate.?EARS:?normal.?NOSE:?septum intact.?ORAL CAVITY:?normal, unremarkable.?NECK/THYROID:?no jugular venous distention, no carotid bruit, thyroid normal.?LYMPH NODES:?no enlarged lymph nodes,spleen normal.?SKIN:?no suspicious lesions, anicteric.?HEART:?no clicks, gallops, murmurs, or rubs, regular rhythm, S1, S2 normal, no s3, or vascular bruits.?LUNGS:?clear to auscultation .?BREASTS:?Not examined.?ABDOMEN:?bowel sounds normal, no ascites, no organomegaly, no mass.?RECTAL EXAM:?not examined.?MUSCULOSKELETAL:?Significant loss of mobility second third and fourth fingers right hand with pain.?PERIPHERAL PULSES:?normal.?NEUROLOGIC:?alert and oriented, cranial nerves 2-12 grossly intact, deep tendon reflexes 2+ symmetrical, motor strength normal upper and lower extremities, sensory exam intact.?PSYCH:?alert, oriented.? Assessment: * Assessment: 1.?Closed displaced fracture of proximal phalanx of right index finger with delayed healing, subsequent encounter - S62.610G (Primary)???Notes :She has 3 fractured fingers and will undergo a course of physical therapy under the supervision of the hand surgeon.???2.?Essential hypertension - I10???Notes :Her blood presssure today is within normal limits. No change in her regimen is needed.???3.?Pain of maxillary sinus - J34.89???Notes :She was treated with an antibiotic for a sinus infection.? A follow-up visit was arranged.???4.?Degenerative disc disease at L5-S1 level - M51.37???Notes :She has had several MRIs in the past for ppain like this. She has done nothing she can think of to cause this exacerbation.???5.?Lumbar radiculopathy - M54.16???Notes :She is experiencing a flareup of the pain, likely due to nerve impingement from a disc. An MRI has been ordered and a surgical consultation may be necessary. She is gooing to use heat and rest and ibuprofen at this time. Dexamethasone will be added. If the pain does not improve rapidly.???6.?Ureterolithiasis - N20.1???Notes :This diagnosis was made in [place] had an episode of renal colic. In recent years she has had no recurrence. She is not aware of any history of hypercalcemia or hyperuricemia.???7.?Primary insomnia - F51.01???Notes :We discussed melatonin. She will continue on current therapy.???8.?Tobacco dependence - F17.200???Notes :She has been seen by the gastroenterology consult nontender evaluation is in progress.??? Plan: * Treatment: 2.?Pain of maxillary sinus?Imaging: XR SINUSES 3.?Others? Continue Valsartan Tablet, 40 MG, 1/2 tablet, Orally, Twice a day;?Continue Ventolin HFA Aerosol Solution, 108 (90 Base) MCG/ACT, two puffs, Inhalation, every 4 hrs for shortness of breath;?Continue Metoprolol Tartrate Tablet, 25 MG, TAKE ONE HALF TABLET BY MOUTH TWICE DAILY, Oral, Twice a day;?Continue Oyster Shell Calcium Tablet, 500 MG, TAKE ONE TABLET BY MOUTH TWICE A DAY DIRECTED;?Continue Nystatin Suspension, 279412 UNIT/ML, TAKE 5ML BY MOUTH 4 TIMES A DAY FOR 11 DAYS, Mouth/Throat;?Continue Ondansetron Tablet Disintegrating, 4 MG, DISSOLVE ONE TABLET BY MOUTH EVERY 8 HOURS NEEDED FOR NAUSEA AND VOMITING, Oral.? Referral To:[facility]??Otolaryngology ?Reason:blocked left ear * Procedure Codes:? * Preventive Medicine:? ??Counseling:?Smoking/Tobacco Use?Patient counseled on the dangers of tobacco use and urged to quit.?11/27/2024 ?Patient Lifestyle Goals?Patient wants to quit ?Treatment Goals?Set a quit date, Cut down by 1 cigarette a week ?Barriers?Stress, Social smoker ?Self-Management Plan?Make a plan to cut down number of cigarettes over time and set a date to work towards quitting * Follow Up:?1 Week (Reason: T V review x ray) * Images: * Sign off status: Completed true * Provider:?Paresh Strong MD Date:?11/09 Generated for Sajan roberts/Crystal/Annie on:?01/01/2025 01:42 PM EDT History and Physical Notes * [...] Referral Date Referring Provider Referred Provider Not rubia 11/27/2024 Paresh Strong [facility], [facility] blocked left ear
--- OUTSIDE RECORDS SUMMARY | 2025-01-01 13:42 | XMS_ITS ---
Author Organization Paresh Strong III, MD Address [address] [address] Care Team Providers Care Seismograph Computer Name Role Phone Paresh Strong Primary [facility] [...] Provider Speciality Internal M edicine Referred Provider [facility], [facility], [facility] Referred Provider Specialty Otolaryngolo gy Referral Priority Routine REASON FOR VISIT Fractured fingers right hand, [...] FOR NAUSEA AND VOMITING Oral Active Nystatin 921016 UNIT/ML TAKE 5ML BY MOUT H 4 [...] Date Provider Diagnosis Paresh Strong III, MD [address] [place] [address] [place] [address] 12/04/2024 Paresh Strong Essential hypertensi on I10 [...] - N20.1) This diagnosis was made in [place] had an episode of renal colic. In [...] NEEDED FOR NAUSEA AND VOMITING Oral Nystatin 677098 UNIT/ML TAKE 5ML BY MOUT H 4 [...] Pain at site of past surgery, of [facility], [facility] Next Appt Details Follow Up: 4 Weeks, Reason: OV Provider Name:Paresh Strong, 03/05/2025 11:15:00 AM, [address] [place] [address] [address] [place], [place], [phone], Provider Name:Paresh Strong, 11/24/2025 11:00:00 AM, [address] [place] [address] [address] [place], [place], [phone], Progress Notes * Cathie THAKKAR CDOB:[birth year] (59 yo F)Acc No.[id number]:12/04/2024 Patient:?Cathie THAKKAR Provider:?Paresh Strong MD :1965???Age:59 Y???Sex:Female D ate:12/04/2024 Address:[address] [place] [address] [facility]-[id number] Subjective: * Chief Complaints: * ???Fractured fingers right h andUnderweightTobacco dependenceUreterolithiasisPrimary insomniaHypertension * HPI: ???:? This telehealth visit took place over 15 minutes with the patient at home and me in my office.? She gave consent for billing.? She is receiving physical therapy to try and improve the range of motion of the 3 fractured fingers on her right hand.? She has an upcoming visit with Dr. Kalina Waldron, hand surgery.? Surgery is not being planned.? The fingers are painful when used.He continues to have low back pain as well as neck pain.? She was given an appointment to return to the office to have her blood pressure check.? She continues to have insomnia but has had no kidney stones. ?Telehealth?Location of provider rendering services:?{...} [address] [place] [address] ?Location of patient:?address listed in demographics for today's visit ?Patient identification confirmed using:?Name, ?Telehealth method:?Telephone only. Patient not visible to care provider. ?Consent:?Patient verbally consented to treatment, Patient verbally consented to billing insurance company, Patient informed of any privacy concerns related to method of visit ?Total time spent with patient (mins)?15 * ROS:?General/Constitutional:?pain?Second third and fourth fingers right hand, low back pain.?Chills?denies.?Fatigue?admits.?Fever?denies.?ENT:?Decreased hearing?denies.?Respiratory:?Cough?non-productive.?Cardiovascular:?Chest pain with exertion?denies.?Dyspnea on exertion?denies.?Shortness of breath?with exertion.?Gastrointestinal:?Constipation?occasional.?Decreased appetite?denies.?Diarrhea?denies.?Heartburn?denies.?Nausea?denies.?Rectal bleeding?denies.?Vomiting?denies.?Hematology:?bruising?denies.?petechiae?denies.?Swollen glands?none have been noted.?Genitourinary:?Frequent urination?denies.?Musculoskeletal:?Muscle aches?denies.?Painful joints?Fingers of right hand.?Sciatica?denies.?Weakness?denies.?Skin:?Itching?denies.?Rash?denies.?Skin lesion(s)?denies.?Neurologic:?Difficulty speaking?denies.?Dizziness?denies.?Headache?denies.?Low back pain?that is chronic.?Psychiatric:?Depressed mood?denies.? * Medical History:? * Surgical History:?Facial rec onstruction Right knee patella reconstruction Bilateral hip surgery Etopic , right salpingectomy History of colonoscopy Last menstrual period 2014 Sigmoid Colectomy 04/2024 * Hospitalization/Major Diagno stic Procedure:?[facility], laparoscopic resection of colon 2023 * [...] smoker (10-19 cigs/day) ???She was born in [place], [place]. She moved to [place] at the age of 53 and has [...] BY MOUTH TWICE A DAY DIRECTED Nystatin 517210 UNIT/ML Suspension TAKE 5ML BY MOUTH 4 [...] MOUTH TWICE A DAY DIRECTED Taking Nystatin 740077 UNIT/ML Suspension TAKE 5ML BY MOUTH 4 [...] * Vitals:?Ht: 62, Wt: 117, BMI :21.4, Ht-cm: 157.48, Wt-k.07. Assessment: * Assessment: 1.?Closed displaced fracture of proximal phalanx of right index finger with delayed healing, subsequent encounter - S62.610G (Primary)???Notes :She has 3 fractured fingers and will undergo a course of physical therapy under the supervision of the hand surgeon.???2.?Essential hypertension - I10???Notes :Her blood pressure has been loosely controlled recently. ?No change in her regimen is needed.???3.?Urinary incontinence - R32???Notes :She has been to see urology and had the cystoscopy. Apparently there were no significant findings. We have requested the note. She has had no hematuria.???4.?Degenerative disc disease at L5-S1 level - M51.37???Notes :She has had several MRIs in the past for ppain like this. She has done nothing she can think of to cause this exacerbation.???5.?Cervical spondylosis - M47.812???Notes :She has chronic pain with range of motion of the neck. There is no radiculopathy.???6.?Ureterolithiasis - N20.1???Notes :This diagnosis was made in [place] had an episode of renal colic. In recent years she has had no recurrence. She is not aware of any history of hypercalcemia or hyperuricemia.???7.?Tobacco dependence - F17.200???Notes :She has been seen by the gastroenterology consult nontender evaluation is in progress.???8.?Lumbar radiculopathy - M54.16???Notes :She is experiencing a flareup of the pain, likely due to nerve impingement from a disc. An MRI has been ordered and a surgical consultation may be necessary. She is gooing to use heat and rest and ibuprofen at this time. Dexamethasone will be added. If the pain does not improve rapidly.??? Plan: * Treatment: 2.?Others? Continue Valsartan Tablet, 40 MG, 1/2 tablet, Orally, Twice a day;?Continue Ventolin HFA Aerosol Solution, 108 (90 Base) MCG/ACT, two puffs, Inhalation, every 4 hrs for shortness of breath;?Continue Metoprolol Tartrate Tablet, 25 MG, TAKE ONE HALF TABLET BY MOUTH TWICE DAILY, Oral, Twice a day;?Continue Oyster Shell Calcium Tablet, 500 MG, TAKE ONE TABLET BY MOUTH TWICE A DAY DIRECTED;?Continue Nystatin Suspension, 551515 UNIT/ML, TAKE 5ML BY MOUTH 4 TIMES A DAY FOR 11 DAYS, Mouth/Throat;?Continue Ondansetron Tablet Disintegrating, 4 MG, DISSOLVE ONE TABLET BY MOUTH EVERY 8 HOURS NEEDED FOR NAUSEA AND VOMITING, Oral.? Referral To:[facility]??Otolaryngology ?Reason:Evaluate and Treat Facial Injury in past to nose, eye, ear and History of surgeries Pain at site of past surgery * Procedure Codes:? * Preventive Medicine:? ??Counseling:?Smoking/Tobacco Use?Patient counseled on the dangers of tobacco use and urged to quit.?12/04/2024 ?Patient Lifestyle Goals?Patient wants to quit ?Treatment Goals?Set a quit date, Cut down by 1 cigarette a week ?Barriers?Social smoker, Stress ?Self-Management Plan?Make a plan to cut down number of cigarettes over time and set a date to work towards quitting * Follow Up:?4 Weeks (Reason: OV) * Images: * Sign off status: Completed true * Provider:?Paresh Strong MD Date:?11/09 Generated for Sajan roberts/Crystal/Annie on:?01/01/2025 01:42 PM EDT History and Physical Notes * HPI (History of Present Illness) Category Sub-Category Detail Notes Telehealth Location [facility] rendering services:: {...} [address] [place] [id number] Location of patient:: address listed in demographics [...] Date Referring Provider Referred Provider Not rubia 12/04/2024 Paresh Strong [facility], of [facility], [facility] Evaluate and Treat Facial Injury in past to nose, eye, ear and History of surgeries Pain at site of past surgery
--- OUTSIDE RECORDS SUMMARY | 2025-01-01 13:42 | XMS_ITS | Data Portability ---
Author Organization [place] - [facility] - Jean rida, SVPE_CARDIO_CC_CCMOB 300 Address [address] [place] [address] Care Team Providers Care Utility Gelatin Maker Name Role Phone MARA PAL Primary Care [...] cost of medications Time spent with patient:__25__minu navni. Have you been seen in the last 7 days by an [facility] provider? no I did not request that the patient schedule an appointment at the next available time as a result of this encounter. CPT CODES: Telephone with video and/or VPO/Virtual/AmWell /Google Meets Emergency Coverage Options Medicare,Medicaid, Aetna (all plans),UHC (all plans),[place] (all plans)/*Humana (urgent cases only) 44347,GT Est Pt - Hx EPF, MDM St Fwd (10 mins) 10263,GT Est Pt - Hx EPF, MDM Low (15 mins) 75882,GT Est Pt - Hx Detailed, MDM Moderate (25 mins) 37344,GT Est Pt - Hx Comprehensive, MDM High (40 mins) 65863,GT New Pt - Hx PF, MDM St Fwd (10 mins) 59010,GT New Pt - Hx PF, MDM St Fwd (20 mins) 02463,GT New Pt - Hx Detailed, MDM Low (30 mins) 28166,GT New Pt - Hx Detailed, MDM Moderate (45 mins) 97241,GT New Pt - Hx Comprehensive, MDM High (60 mins) Telephone Audio Only --Commercial Payors-- 33842- (5-10 mins) Telephone Eval 39192- (11-20 mins) Telephone Eval 74466- (21+ mins) Telephone Eval Telephone Audio Only --Medicare/Medicai d/C-- G2012- (5-10 mins) Telephone Eval G0071- (5-10 mins) [facility]) Telephone Eval Virtual Provider Office (VPO) AmWell/Audio+Video *Normal(No Emergency Options)* CIG[employer] and others not emergency coverage 07380- (5-10 mins) Online Digital/Virtual 76473- (11-20 mins) Online Digital/Virtual 55485- (21+ mins) Online Digital/Virtual [email or web address] Not available [...] establish care with new pain management at [facility]. 3) Elevated BP without diagnosis of HTN - probable white coat syndrome - will have her monitor at home . BP stable ppdpi571/88. She is not currently on any pharmacotherapy [...] ordered today - Time spent for Non Otpd-jc-Nemi :5 minutes - reviewed previous medical records, [...] serum 2020 021 [email or web address] [facility], [address] [place], [address], 10:52:08 CMP, serum or plasma 2020 021 [email or web address], [address] [place], [address], 1 10:52:08 TSH + free T4, serum 2020 021 [email or web address] [facility], [address] [place], [address], 1 10:52:09 CBC w/ auto diff 2020 021 [email or web address] [facility], [address] [place], [address], 1 10:52:09 magnesium , serum or plasma 2020 021 [email or web address] [facility], [address] [place], [address], 1 10:52:09 HbA1c (hemoglob in A1c), blood 2020 021 [email or web address], [address] [place], [address], 1 10:52:09 culture, urine 2020 021 SEE [facility], [address] [place], [address], 1 01:43:34 urinalysi s, dipstick, auto 2020 021 [email or web address] [facility] Orders (For In-Office Services Only), [address] [place], [address], 1 14:45:58 hepatitis C virus Ab, serum 2020 021 [email or web address], [address] [place], [address], 1 10:52:09 lipid panel, serum 2019 [email or web address] [facility], [address] [place], [address], 1 10:24:51 CBC 2019 [email or web address] [facility], [address] [place], [address], 1 10:24:51 vitamin B12 + folate, serum or blood 2019 [facility], [address] [place], [address], 1 14:38:16 TSH + free T4, serum 2019 [email or web address] [facility], [address] [place], [address], 1 10:24:50 magnesium , serum or plasma 2019 [email or web address] [facility], [address] [place], [address], 1 10:24:50 CMP, serum or plasma 2019 [email or web address] [facility], [address] [place], [address], 1 10:24:50 hepatitis C virus Ab, serum 2019 [email or web address] [facility], [address] [place], [address], 1 10:24:51 HbA1c (hemoglob in A1c), blood 2019 [email or web address] [facility], [address] [place], [address], 1 10:24:51 Referral None recorded. Procedures None recorded. Surgeries None recorded. Imaging electroca rdiogram 2019 020 [facility] Orders (For In-Office Services Only), [address] [place], [address], 0 16:25:11 Medication Orders Augmentin 875 mg-125 mg tablet 2020 021 [facility], [address] [place] [address], [address], 1 13:39:56 trazodone 50 mg tablet 2020 021 [facility] [address], [address] [place] [address], [address], 1 14:46:08 Pyridium 200 mg tablet [address] [facility], [address] [place] [address], [address], 1 13:33:41 Macrobid 100 mg capsule 2020 021 [place] [address], [address] [place] [address], [address], 1 13:33:38 Patient TargetsNo targets recorded. Patient Instructions Encounter Date Encounter Id Patient Instructions Last Modified By Organization Details Last Modified Time 08/26/2020 [id number] rest & fluids [email or web address] Not available 08/26/2020 [...] approximately __25 minutes___ with greater than 50% vyxi-up-ibyf counseling time. [email or web address] Not available 08/26/2020 16:39:18 09/01/2020 [id number] smoking cessatio n counseling, greater than 3 [...] approximately __30 minutes___ with greater than 50% dadu-iw-pqui counseling time. [email or web address] Not available 09/01/2020 14:50:58 01/14/2021 [id number] blood in the urine: care instructions [email or web address] [...] because they keep the bladder opening area chip drier than a sanitary pad, thereby limiting bacterial [...] approximately _25 minutes____ with greater than 50% dvyd-nn-futy counseling time. [email or web address] Not available 01/14/2021 14:59:56 05/25/2021 [id number] medication information [email or web address] Not available 05/25/2021 13:46:46 [...] urine culture Name: [place]NER [place] [id number] [facility] [id number] #: /A GE/ 1964 55 years Femal [...] 10,00 0-30, 000 cfu/m L Not Available [facility] [address] [place], [address], 07/15/2020 04:20:28 07/13/20 20 07/13/2020 urina lysis , dipst ick Leukocytes Negati ve Not Available [facility]For [facility] Services Only) [address] [place], [address], 07/13/2020 13:33:47 07/13/20 20 07/13/2020 urina lysis , dipst ick Nitrite negati ve Not Available [facility] Physician [facility] Orders (For In-Office Services Only) [address] [place], [address], 07/13/2020 13:33:47 07/13/20 20 07/13/2020 urina lysis , dipst ick Urobilinogen 0.2 Not Available [facility] Orders (For In-Office Services Only) [address] [place], [address], 07/13/2020 13:33:47 07/13/20 20 07/13/2020 urina lysis , dipst ick Protein Negati ve Not Available [facility] (For [facility]-Office Services Only) [address] [place], [address], 07/13/2020 13:33:47 07/13/20 20 07/13/2020 urina lysis , dipst ick pH 6.0 Not Available [facility] Orders (For In-Office Services Only) [address] [place], [address], 07/13/2020 13:33:47 07/13/20 20 07/13/2020 urina lysis , dipst ick Blood Modera te Not Available [facility] Orders (For In-Office Services Only) [address] [place], [address], 07/13/2020 13:33:47 07/13/20 20 07/13/2020 urina lysis , dipst ick Specific Perris 1.010 Not Available [facility] Orders (For In-Office Services Only) [address] [place], [address], 07/13/2020 13:33:47 07/13/20 20 07/13/2020 urina lysis , dipst ick Ketone Negati ve Not Available [facility] Orders (For In-Office Services Only) [address] [place], [address], 07/13/2020 13:33:47 07/13/20 20 07/13/2020 urina lysis , dipst ick Bilirubin Small Not Available [facility] Orders (For In-Office Services Only) [address] [place], [address], 07/13/2020 13:33:47 07/13/20 20 07/13/2020 urina lysis , dipst ick Glucose Negati ve Not Available [facility] Orders (For In-Office Services Only) [address] [place], [address], 07/13/2020 13:33:47 07/13/20 20 07/13/2020 urina lysis , dipst ick Appearance Clear Not Available [facility] Orders (For In-Office Services Only) [address] [place], [address], 07/13/2020 13:33:47 07/13/20 20 07/13/2020 urina lysis , dipst ick Color Yellow Not Available [facility] Orders (For In-Office Services Only) [address] [place], [address], 07/13/2020 13:33:47 07/22/20 20 07/22/2020 urina lysis , compl ete urine source Random random normal Not Available [facility] [address] [place], [address], 07/22/2020 20:11:58 07/22/20 20 07/22/2020 urina lysis , compl ete urine color Colorl ess yellow normal Not Available [facility] [address] [place], [address], 07/22/2020 20:11:58 07/22/20 20 07/22/2020 urina lysis , compl ete urine clarity Clear clear normal Not Available [facility] [address] [place], [address], 07/22/2020 20:11:58 07/22/20 20 07/22/2020 urina lysis , compl ete urine specific gravity 1.003 1.005- 1.035 low Not Available [facility] [address] [place], [address], 07/22/2020 20:11:58 07/22/20 20 07/22/2020 urina lysis , compl ete urine pH 5.0 5.0-8. 0 normal Not Available [facility] [address] [place], [address], 07/22/2020 20:11:58 07/22/20 20 07/22/2020 urina lysis , compl ete urine protein Negati ve mg/dL negati ve normal Not Available [facility] [address] [place], [address], 07/22/2020 20:11:58 07/22/20 20 07/22/2020 urina lysis , compl ete urine glucose Normal (<30) mg/dL normal (<30) normal Not Available [facility] [address], [address], 07/22/2020 20:11:58 07/22/20 20 07/22/2020 urina lysis , compl ete urine ketones Negati ve mg/dL negati ve normal Not Available [facility] [address], [address], 07/22/2020 20:11:58 07/22/20 20 07/22/2020 urina lysis , compl ete urine bilirubin Negati ve mg/dL negati ve normal Not Available [facility] [address], [address], 07/22/2020 20:11:58 07/22/20 20 07/22/2020 urina lysis , compl ete urine blood 0.1 mg/dL negati ve abnormal Not Available [facility] [address], [address], 07/22/2020 20:11:58 07/22/20 20 07/22/2020 urina lysis , compl ete urine nitrite Negati ve negati ve normal Not Available [facility] [address], [address], 07/22/2020 20:11:58 07/22/20 20 07/22/2020 urina lysis , compl ete urine urobilinogen Normal (<2.0) mg/dL normal (<2.0) normal Not Available [facility] [address], [address], 07/22/2020 20:11:58 07/22/20 20 07/22/2020 urina lysis , compl ete urine leukocyte esterase Negati ve zz negati ve normal Not Available [facility] [address], [address], 07/22/2020 20:11:58 07/22/20 20 07/22/2020 urina lysis , compl ete urine white blood cells <1 per_h pf 0-5 normal Not Available [facility] [address] [place], [address], 07/22/2020 20:11:58 07/22/20 20 07/22/2020 urina lysis , compl ete urine red blood cells <1 per_h pf 0-5 normal Not Available [facility] [address], [address], 07/22/2020 20:11:58 07/22/20 20 07/22/2020 urina lysis , compl ete squamous epithelial <1 per_h pf 0-5 normal Not Available [facility] [address], [address], 07/22/2020 20:11:58 08/24/20 20 08/24/2020 nonin vasiv [...] of 10,00 0 indiv idual s at [place] risk for color ectal cance r [...] for asymp tomat ic perso ns at [facility] risk for color ectal cance r. Follo [...] y 2017; 112:1 016-1 030. TEST TYPE: [place] site algor ithmi c grant sis of [...] years or older , who are at [facility] for color ectal cance r (CRC) [...] , singl e point in time) of [facility] adult s aged 50-84 . [...] s can be found at [email or web address] m. Rx only. Not Available [facility] (Cologuard Orders Only) [address], [place], [address], 08/27/2020 08:55:53 01/15/2001/16/2021 cultu re, urine [place]: [place] [id number] [facility] [id number] #: /A GE1964 55 years Femal e SEX: ORD PHY: Janine riley APRN, Vivia n Urine /GI Cultu res & Exams PROCE DURE: Cultu re Urine COLLE CTED: 00:00 EDT SOURC E: URINE START ED: 20:11 EDT FREE TEXT SOURC E: RECEI JAY DATE/ TIME: 20:11 EDT BODY SITE: ACCES MANNY: -[id number] 14 ORDER ING PHYSI LATA: Janine riley APRN, Vivia n FI NAL REPOR TS Final Repor t [] Verif ied Date/ Time: 01:26 EDT Ureth ral nancy 1,000 -10,0 00 cfu/m L Not Available [facility] [address] [place], [address], 01/16/2021 01:43:34 01/15/20 21 01/14/2021 urina lysis , dipst ick, auto Leukocytes Negati ve Not Available [facility] Physician [facility] Orders (For In-Office Services Only) [address] [place], [address], 01/14/2021 14:39:51 01/15/20 21 01/14/2021 urina lysis , dipst ick, auto Nitrate negati ve Not Available [facility] Orders (For In-Office Services Only) [address] [place], [address], 01/14/2021 14:39:51 01/15/20 21 01/14/2021 urina lysis , dipst ick, auto Urobilinogen 0.2mg/ dL Not Available [facility] Orders (For In-Office Services Only) [address] [place], [address], 01/14/2021 14:39:51 01/15/20 21 01/14/2021 urina lysis , dipst ick, auto Specific [place]err[place] 1.005 Not Available [facility] Orders (For In-Office Services Only) [address] [place], [address], 01/14/2021 14:39:51 01/15/20 21 01/14/2021 urina lysis , dipst ick, auto Ketone Negati ve Not Available [facility] Orders (For In-Office Services Only) [address] [place], [address], 01/14/2021 14:39:51 01/15/20 21 01/14/2021 urina lysis , dipst ick, auto Blood Non-He molyze d: Modera te Not Available [facility] Orders (For In-Office Services Only) [address] [place], [address], 01/14/2021 14:39:51 01/15/20 21 01/14/2021 urina lysis , dipst ick, auto pH 5.5 Not Available [facility] Orders (For In-Office Services Only) [address] [place], [address], 01/14/2021 14:39:51 01/15/20 21 01/14/2021 urina lysis , dipst ick, auto Protein Negati ve Not Available [facility] Phys[facility] Orders (For In-Office Services Only) [address] [place], [address], 01/14/2021 14:39:51 01/15/20 21 01/14/2021 urina lysis , dipst ick, auto Bilirubin Negati ve Not Available [facility] Orders (For In-Office Services Only) [address] [place], [address], 01/14/2021 14:39:51 01/15/20 21 01/14/2021 urina lysis , dipst ick, auto Glucose Negati ve Not Available [facility] Orders (For In-Office Services Only) [address] [place], [address], 01/14/2021 14:39:51 01/15/20 21 01/14/2021 urina lysis , dipst ick, auto Appearance Clear Not Available [facility] Orders (For In-Office Services Only) [address] [place], [address], 01/14/2021 14:39:51 01/15/20 21 01/14/2021 urina lysis , dipst ick, auto Color Yellow Not Available [facility] Orders (For In-Office Services Only) [address] [place], [address], 01/14/2021 14:39:51 09/01/20 20 elect porsha trangr [...] Details Recorded Time Health educatio n given [id number] Active 2019 Mara Pal APRN [address] [facility],[address], [place], [address] , [facility] - [facility] 0 20:52:43 Tobacco dependen ce syndrome 21656725 Active 2019 Mara Pal APRN [address] [facility],[address], [place], [address] , [facility] - [facility] 0 20:48:41 Chronic pain syndrome 268739594 Active [address] [facility] - has to change to [facility] d/t insuranc e. H/O DDD Mara Garcia Citlaly, EQUIPMENT VALIDATION SPECIALIST [address], [place], [address] , [facility] 0 20:49:45 Degenera tion of interver tebral disc 71141679 Active 2019 Mara Garcia Citlaly, EQUIPMENT VALIDATION SPECIALIST [address], [place], [address] , [facility] 0 20:49:58 Divertic ular disease 661750948 Active 2019 h/o divertic ulosis Mara Garcia HELEN PalN [address], [place], [address] , [facility] 0 20:50:21 Fibromya lgia 606713949 Active 2019 Mara Garcia HELEN PalN [address], [place], [address] , [facility] 0 15:59:05 Degenera tion of lumbar interver tebral disc 21300538 Active 2019 Patient has received cortison e shots to cervical and lumbar spine Mara Radha Citlaly, TANMAY [address], [place], [address] , [facility] 0 16:00:24 Degenera tion of cervical interver tebral disc 38931822 Active 2019 Patient has received cortison e shots to the cervical and lumbar spine Mara Radha TANMAY Pal [address], [place], [address] , [facility] 0 16:00:34 Bilatera l bursitis of hips [id number] 631237 Active 2019 Mara Radha TANMAY Pal [address], [place], [address] , [facility] 0 15:59:43 Paresthe tre 06751280 Active 2019 Mara Pal APRN [address], [place], [address] , [facility] 0 16:37:41 Bacteria l urinary infectio n 753968321 Completed 201909/12/2020 [facility] :ER visit for gram-neg ative e-coli UTI; hyperkal emia; severe dehydrat ion. She was treated with ciproflo xacin Mara Pal APRN [address], [place], [address] , [facility] 1 17:35:33 Insomnia 473894056 Active 2020 Mara Pal APRN [address], [place], [address] , [facility] 1 14:44:45 Arthriti s 8005216 Active 2020 Mara Pal APRN [address], [place], [address] , [facility] 1 16:05:38 Essentia l hyperten manny 06016863 Active 2020 Mara Pal APRN [address], [place], [address] , [facility] 1 16:06:06 Chronic depressi on 477151994 Active 2020 Mara Pal APRN [address], [place], [address] , [facility] 1 16:06:31 Generali zed anxiety disorder 39325599 Active 2020 Mara Pal APRN [address], [place], [address] , [place] - [facility] 1 16:06:44 [facility] emia [id number] Completed 202001/18/2021 Mara Garcia Citlaly, EQUIPMENT VALIDATION SPECIALIST [address], [place], [address] , [place] - [facility] [place] 1 16:07:01 Spondylo listhesi s 524588421 Active 2020 L4-L5 level Mara Garcia Citlaly, EQUIPMENT VALIDATION SPECIALIST [address], [place], [address] , [place] - [facility] [place] 1 16:08:49 Lumbosac ral spondylo sis without myelopat hy 52724583 Active 2020 Mara F Citlaly, EQUIPMENT VALIDATION SPECIALIST [address], [place], [address] , [place] - [facility] [place] 1 16:09:00 Primary insomnia 3887251 Active 2020 Mara Garcia Citlaly, EQUIPMENT VALIDATION SPECIALIST [address], [place], [address] , [place] - 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 [place] 1 16:09:33 Cervical spondylo sis without myelopat hy 661391995 Active 2020 Mara Radha Citlaly, EQUIPMENT VALIDATION SPECIALIST [address], [place], [address] , [place] - [facility] 1 16:09:43 Otitis media 40814753 Active 2020 Mara Radha Citlaly EQUIPMENT VALIDATION SPECIALIST [address], [place], [address] , [place] - [facility] [place] 1 12:41:53 Problem Notes None recorded. Procedures Surgical History Date Name Laterality Status Provider Name and Address Organization Details Recorded Time 1 [facility] completed Mara Pal APRN [address], [place], [address], [facility] 05/25/2021 13:47:00 1 [facility] completed Mara Pal APRN [address], [place], [address], [facility] 01/14/2021 14:59:46 1 [facility] cancelled Liliane Vasquez [place] - [facility] 09/07/2020 11:21:53 0 [facility] completed Liliane Vasquez [place] - [facility] 08/27/2020 16:02:41 0 [facility] completed Liliane Vasquez [place] - [facility] 08/19/2020 14:12:44 0 [facility] completed [place]quez [place] [facility] [facility] 07/09/2020 12:23:19 9 Date of Last Pap Smear completed Mara Pal APRN [address], [place], [address], [facility] 2020 16:05:21 6 Hip Surgery completed [address], [place], [address], [facility] 01/18/2021 16:07:16 9 Knee Surgery completed Mara Pal APRN [address], [place], [address], [facility] 01/18/2021 16:08:08 repair of nose completed Cass Vega CT - [facility] 07/12/2020 14:11:03 Imaging Results Imaging Date Name [...] Updated DateTime 07/22/2020 162.56 cm 97.9 [degF] [facility] 07/22/2020 14:05:02 Date Recorded Body height Body mass index (BMI) Body weight Pain severity - 0-10 verbal numeric rating [Score] - Reported Heart rate Oxygen saturation Oxygen saturation in Arterial blood by Pulse oximetry Systolic blood pressure Diastolic blood pressure Provider Name and Address Organization Details Last Updated DateTime 0 162.56 cm 20.1 kg/m2 44115.3 1 g 5 101 /min 97 % 97 % 128 mm[Hg] 92 mm[Hg] [facility] 0 11:14:46 Date Recorded Body height Body temperature Body mass index (BMI) Body weight Heart rate Respiratory rate Oxygen saturation Oxygen saturation in Arterial blood by Pulse oximetry Pain severity - 0-10 verbal numeric rating [Score] - Reported Systolic blood pressure Diastolic blood pressure Provider Name and Address Organization Details Last Updated DateTime 0 162.56 cm 97 [degF] 20.6 kg/m2 45407.0 8 g 99 /min 16 /min 95 % 95 % 7 134 mm[Hg] 85 mm[Hg] Cass Vega [facility] 0 14:35:12 Date Recorded Body height Body mass index (BMI) Body weight Heart rate Respiratory rate Oxygen saturation Oxygen saturation in Arterial blood by Pulse oximetry Body temperature Pain severity - 0-10 verbal numeric rating [Score] - Reported Systolic blood pressure Diastolic blood pressure Provider Name and Address Organization Details Last Updated DateTime 1 162.56 cm 19.8 kg/m2 52707.8 2 g 90 /min 16 /min 97 % 97 % 97.5 [degF] 8 142 mm[Hg] 88 mm[Hg] Cass Vega [facility] 1 14:30:53 Date Recorded Body height Body mass index (BMI) Body weight Heart rate Respiratory rate Oxygen saturation Oxygen saturation in Arterial blood by Pulse oximetry Body temperature Pain severity - 0-10 verbal numeric rating [Score] - Reported Systolic blood pressure Diastolic blood pressure Provider Name and Address Organization Details Last Updated DateTime 1 162.56 cm 19.1 kg/m2 31725.1 5 g 99 /min 16 /min 97 % 97 % 97.3 [degF] 4 143 mm[Hg] 96 mm[Hg] Cassmindy Vega [facility] 1 13:32:23 Social History Question Answer Notes LastModified by Organizat ion Details LastModified Time Tobacco Smoking Status Current Every Day Smoker Cass Vega [facility] 07/12/2020 14:06:12 Do You Have An Advance [...] Like Food, Housing, Medical Care, And Heating? [id number] Information not available 07/12/2020 Hard Of Hearing [...] Anxious, Or Unable To Sleep At Night)? [id number] Information not available 01/14/2021 Do You Use [...] mcg/0.3 mL dose 05/08/2021 completed Cass Vega [facility] 05/25/2021 13:35:57 Influenza, split virus, quadrivalent, PF 07/13/2020 completed Mara Pal APRN [address], [place], [address], [facility] 07/18/2020 17:11:54 Past Encounters Encounter ID Performer Location Encounter Start Date Encounter Closed Date Diagnosis/Indication Diagnosis SNOMED-CT Code Diagnosis ICD10 Code Diagnosis Note [id number] Mara Pal APRN [facility] [address] [place] [address] 07/12/2020 13:38:18 07/12/2020 14:54:47 Depression screening 374699760 Z13.31 Health edu cation given 171408547 Z71.9 Reviewed careplan with patient/ca regiver. Changes made where necessary, discussed obstacles and limitation s. Normal bod y mass index 22731629 Z68.20 BMO =20.3 Dysuria 92380539 R30.0 Patient was not able to give sufficient sample - will advise her to give urine sample tomorrow Low back pain 223243276 M54.5 advised patient to push fluids and take meds as directed. Screening for malignant neoplasm of colon 875889555 Z12.11 USPSTF recommends FIT -DNA test every 3 years Chronic back pain 576303 002 M54.9 Referral to [facility] - see patient order group - Dr. Mary Pablo ordering provider d/t insurance Mixed anxi ety and depressive disorder 501260622 F41.8 ANN-7 =, PHQ-9 =09/05. Denies HI/SI. [...] Elevated blood-pressure reading without diagnosis of hypertension 806753072 R03.0 Recheck BP 138/82. Continue to monitor [id number] Mara Pal APRN [facility] [address] [facility] [address] [place] [address] 07/13/2020 13:28:39 07/13/2020 14:21:43 Administration of influenza vaccine 22047792 Z23 FLu vaccine administer ed without adverse effects. Patient tolerated well. Dysuria 07911839 R30.9 Nurse visit on 07/13/2020 - u/a with moderate blood, will notify patient - advise that she will need urine cx - recently treated for e-coli UTI [id number] Mara Pal APRN [facility] [address] [facility] [address] [place] [address] 07/22/2020 13:57:28 07/22/2020 14:10:53 [id number] Mara Pal APRN [facility] [address] [facility] [address] [place] [address] 08/26/2020 11:08:28 08/26/2020 11:55:55 Tobacco dependence syndrome 92218582 F17.200 Degenerati on of cervical intervertebral disc 06610954 M50.30 see above. managed by [facility] Degenerati on of lumbar intervertebral disc 22384583 M51.36 see above. managed by [facility] spine and pain Depression screening 171 151487 Z13.31 PHQ-2=0/6 Health edu cation given 901885418 Z71.9 Reviewed careplan with patient/ca regiver. Changes made where necessary, discussed obstacles and limitation s. Normal bod y mass index 42272430 Z68.20 BMO =20.1 Dysuria 67101084 R30.0 resolved Low back pain 853613482 M54.5 advised patient to push fluids and take meds as directed. Screening for malignant neoplasm of colon 875842984 Z12.11 USPSTF recommends FIT -DNA test every 3 years Chronic back pain 254564 002 M54.9 Referral to [facility] - see patient order group - Dr. Mary Pablo ordering provider d/t insurance Mixed anxi ety and depressive disorder 312137838 F41.8 HANSA - ANN-7 =13/21, PHQ-9 =09/05. Denies HI/SI. We discussed pharmacoth erapy options - unfortunat mohan d/t patient being on chronic opioid therapy she is limited to medication s due to interactio ns . Trial of hydroxyzin e not effective. 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 Normal bod y mass index 50034146 Z68.20 BMO =20.1 Degenerati on of cervical intervertebral disc 34906150 M50.30 see above. managed by [facility] Degenerati on of lumbar intervertebral disc 27780664 M51.36 see above. managed by [facility] spine and pain Depression screening 171 695234 Z13.31 PHQ-2=08/11 7 at [facility] edu cation given 514184358 Z71.9 Reviewed careplan with patient/ca regiver. Changes made where necessary, discussed obstacles and limitation s. Dysuria 49250619 R30.0 resolved- repeat urine cx neg Low back pain 031349251 M54.5 advised patient to push fluids and take meds as directed. Screening for malignant neoplasm of colon 741827366 Z12.11 USPSTF recommends FIT -DNA test every 3 years Chronic back pain 937793 002 M54.9 Referral to [facility] - see patient order group - Dr. 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 Denies HI/SI. We discussed pharmacoth erapy options - unfortunat mohan d/t patient being on chronic opioid therapy she is limited to medication s due to interactio ns . Trial of hydroxyzin e not effective. Declines Psychiatry and referral at this time Reports she i smanaging symptoms Safety education 9008542 04 Z71.9 Diabetes m ellitus screening 935578877 Z13.1 scr diabetes Anemia screening 1632283 07 Z13.0 scr anemia Hepatitis C screening 41 7678249 Z11.59 scr hep c Hyperlipid emia screening 526959307 Z13.220 scr lipi [id number] Mara Pal APRN [facility] [address] [place] [address] 01/14/2021 14:19:54 01/14/2021 15:01:42 Increased frequency of urination 496849863 R35.0 see above Tobacco de pendence syndrome 02405349 F17.200 3-10 minutes spent counsellin g on [...] and support. Normal bod y mass index 97945522 Z68.20 BMO =20.1 Degenerati on of cervical intervertebral disc 32330967 M50.30 see above. managed by [facility] Degenerati on of lumbar intervertebral disc 82402327 M51.36 see above. managed by [facility] spine and pain Depression screening 171 263037 Z13.31 PHQ-2=08/11 7 at [facility] edu cation given 632860144 Z71.9 Reviewed careplan with patient/ca regiver. Changes made where necessary, discussed obstacles and limitation s. Dysuria 88632866 R30.0 see aboveRevie wed new medication with patient including name, indication , dosage, frequency, adverse effects, contraindi cations/ca utions, safety/ins tructions, and special instructio ns. Patient verbalized understand ing. Low back pain 733017546 M54.5 advised patient to push fluids and take meds as directed. Chronic back pain 049174 002 M54.9 Referral to [facility] - see patient order group - Dr. Mary Pablo ordering provider d/t insurance Mixed anxi ety and depressive disorder 464605174 F41.8 HANSA - ANN-7 =, PHQ-9 =09/05. Denies HI/SI. We discussed pharmacoth erapy options - letty preston d/t patient being on chronic opioid therapy she is limited to medication s due to interactio ns . Trial of hydroxyzin e not effective. Declines Psychiatry and referral at this time Reports she i smanaging symptoms Hyperlipid emia screening 022657808 Z13.220 scr lipi Anemia screening 5756750 07 Z13.0 scr anemia Thyroid di sorder screening 399854418 Z13.29 Diabetes m ellitus screening 051967669 Z13.1 scr diabetes Hepatitis C screening 41 8657899 Z11.59 scr hep c Paresthesia 19867385 R20 .2 see above Insomnia 788460183 G47.0 0 Reviewed new medication with patient including name, indication , dosage, frequency, adverse effects, contraindi cations/ca utions, safety/ins tructions, and special instructio ns. Patient verbalized understand ing. Microscopic hematuria 19 2840995 R31.29 Urinalysis dipstick in clinic on 07/13/2020 with moderate blood. Urine culture on 07/13/2020 - for UTI. Advised patient to repeat urine complete to be done at [facility] ed. New medica tion commenced 100705003 Z71.89 New medication started or change in medication discussed. Reviewed indication s, possible drug interactio ns, side effects and indicators to stop. Patient and/or caregiver understand s. [id number] TANMAY SolizPE_PRIM SUHA[facility]JILLIAN [facility]TE[facility] [address] [place] [address] 05/25/2021 13:22:37 05/25/2021 14:27:58 Body mass index less than 20 892314740 Z68.1 Acute left otitis media 350465121 H66.92 New medica tion commenced 331629192 Z71.89 New medication started or change in [...] Lemus Member ID Guarantor Name 07/22/2020 1 [facility] [place] [place]AN[place] (MED[place]AC[place] - [place]) [facility] Broderick C Filiault [id number] Broderick Filiault 08/26/2020 1 [facility] [place] ([place] - [place] [facility] Broderick C Filiault [id number] Broderick Filiault 09/01/2020 1 [facility] [place] (MED[place] - [place]) [facility] Broderick C Filiault [id number] Broderick Filiault 01/14/2021 1 [employer] [place] (MED[place] - [place]) Broderick Filiault [id number] Broderick Filiault 05/25/2021 1 [employer] [place]MED[place] - [place]) Broderick Filiault [id number] Broderick Filiault Notes Date Note Type Note [...] on 08/24/2020. New Patient visit on 07/12/2020:Specialists: [facility] : Dr. Jaime SANTO 07/09/2020 Needs to change to [facility] due to insurance - requesting referral Review of [facility] records. Last ER visit on 05/27/2020: Patient [...] right knee 2) bilateral hip surgery in [place] due to bursitis 3) fractures facial as a child from playground accident requiring surgery 4) tubal removed FH: Diabetes - mother Last CPE: reports has been within a year Last PAP: approx 1 year ago +yeast infection otherwise normal Last Mammogram: Last mammogram at [facility] this year - normal Last Colonoscopy: has not had [place]oscopy - [place] DEXA: has not had one Immunizations needed: Flu vaccine Social History: Has BF with esophageal Cancer 38 yo, 25 yo , 23 yo, 10 grandparents Living in [place] - with Kyle significant other On disability - SSI Education: some college Enjoys gardening Moved 2 yrs ago [facility] Mara Pal, EQUIPMENT VALIDATION SPECIALIST [address], [place], [address] 08/26/2020 16:39:32 09/01/2020 text/html Patient is a 54 year old female here to establish primary care with the practice as a new patient. Previous PCP: Dr. Wilder Perry Specialists: [facility] : Dr. Jaime SANTO 07/09/2020 Needs to change to [facility] due to insurance - requesting referral Review of [facility] records. Last ER visit on 05/27/2020: Patient [...] right knee 2) bilateral hip surgery in [place] due to bursitis 3) fractures facial as a child from playground accident requiring surgery 4) tubal removed FH: Diabetes - mother Last CPE: reports has been within a year Last PAP: approx 1 year ago +yeast infection otherwise normal Last Mammogram: Last mammogram at [facility] this year - normal 06/18/2019 Last Colonoscopy: has not had colonoscopy - Cologuard negative DEXA: has not had one Immunizations needed: Flu vaccine Social History: Has BF with esophageal Cancer 38 yo, 25 yo , 23 yo, 10 grandparents Living in [place] - with Kyle significant other On disability - SSI Education: some college Enjoys gardening Moved 2 yrs ago [facility] Mara Pal, EQUIPMENT VALIDATION SPECIALIST [address], [place], [address], [facility] 09/01/2020 15:08:08 01/14/2021 text/html Patient is a [...] , 23 yo, 10 grandparents Living in [place] - with Kyle significant other On disability - SSI Education: some college Enjoys gardening Moved 2 yrs ago [facility] Mara Pal, EQUIPMENT VALIDATION SPECIALIST [address], [place], [address], [facility] - [facility] 01/14/2021 15:00:37 05/25/2021 text/html Patient is a [...] to quit at this time. Mara Pal, EQUIPMENT VALIDATION SPECIALIST [address], [place], [address], [facility] - [facility] 05/25/2021 13:47:18 OBGyn Episode No OBEpisode recorded.
--- OUTSIDE RECORDS SUMMARY | 2025-01-01 13:43 | XMS_ITS ---
Author Organization Paresh Strong III, MD Address [address] [place] [address] Care Team Providers Care Home Hospice Rn Name Role Phone Paresh Strong Primary Care Provider Allergies Allergen (clinical drug ingredient) Drug/Non Drug Allergy documented on EMR Reaction Allergy Type Onset Date Status amoxicillin / clavulanate Augmentin vomiting Drug Allergy Active REASON FOR VISIT Follow up Medications Medication SIG (Take, Route, Frequency, [...] MOUTH TWICE A DAY DIRECTED Active Nystatin 427874 UNIT/ML TAKE 5ML BY MOUT H 4 [...] te cigarette smoker (10-19 cigs/day) Vital Signs Temperature 97.0 degrees Fahrenheit 01/02/20 25 Blood pressure systolic 126 mm Hg 01/02/20 25 Blood pressure diastolic 79 mm Hg 025 Heart Rate 86 /min 01/01/2025 Height 62 in 01/01/2025 Weight 115 lbs 01/01/2025 BMI 21.03 kg/m2 01/01/2025 Encounters Encounter Location Date Provider Diagnosis Paresh Strong III, MD [address] [place] [address] [place] [address] 01/01/2025 Paresh Strong Essential hypertensi on I10 Assessments Encounter Date Diagnosis (ICD Code) Assessment Notes Treat ment Notes Treatment Clinical Notes 01/01/2025 Essential hypertension [...] BY MOUTH TWICE A DAY DIRECTED Nystatin 876143 UNIT/ML TAKE 5ML BY MOUT H 4 [...] bs, Reason: OV REVIEW LABS Provider Name:Paresh Jimenezne, 03/05/2025 11:15:00 AM, [address] [place] [address] [address], [place], [address], Provider Name:Paresh Parksrne, 11/24/2025 11:00:00 AM, [address] [place] [address] [address], [place], [address], Progress Notes * Cathie THAKKAR CDOB:[birth year] (59 yo F)Acc No.[id number]:01/01/2025 Progress Notes Patient:?Cathie THAKKAR C Provider:?Paresh Strong MD :1965???Age:59 Y???Sex:Female D ate:01/01/2025 Address:[address] [place] [address] [id number] Subjective: * Chief Complaints: * ???1. Follow up. * HPI: ???COVID-19 Screening:?has allergies, gave her flonase and loratadine? refilled myrbetrig for urol, myrbet goo for inconltinence,? back pain is analy hurtin,? 10 cig a day ent will see her january 31. ?Questions?Have you had any new onset fever, chills, cough, congestion, sore throat, shortness of breath, muscle aches??No * ROS:?General/Constitutional:?pain?only normal aches and pains.?Chills?denies.?Fatigue?admits.?Fever?denies.?ENT:?Decreased hearing?denies.?Respiratory:?Cough?denies.?Cardiovascular:?Chest [...] Insomnia, Last menstrual period 2014, History of ureterolithiasis, Fractured Second third and fourth fingers Right hand November 2024. * Surgical History:?Facial rec onstruction , Right knee patella reconstruction , Bilateral hip surgery , Etopic , right salpingectomy , History of colonoscopy , Last menstrual period 2014 , Sigmoid Colectomy 04/2024. * Hospitalization/Major Diagno stic Procedure:?[facility], laparoscopic resection of colon 2023. * Family History:?Father: dece ased, diagnosed with [...] smoker (10-19 cigs/day) ???She was born in [place], [place]. She moved to [place] at the age of 53 and has just returned due to the of Kyle,a significant other, from esophageal cancer. She has 3 children, Shayne 40, Mariana 36, Nyasia 33. She has 10 grandchildren. She is unemployed and disabled at this time due to degenerative disease of the spine. She is now single. * Medications:?Taking Valsarta n 40 MG Tablet 1/2 tablet Orally Twice a day , Taking Ventolin HFA 108 (90 Base) MCG/ACT Aerosol Solution two puffs Inhalation every 4 hrs for shortness of breath , Taking Metoprolol Tartrate 25 MG Tablet TAKE ONE HALF TABLET BY MOUTH TWICE DAILY Oral Twice a day , Taking Oyster Shell Calcium 500 MG Tablet TAKE ONE TABLET BY MOUTH TWICE A DAY DIRECTED , Taking Myrbetriq 50 MG Tablet Extended Release 24 Hour TAKE ONE TABLET BY MOUTH EVERY DAY Oral , Taking Vitamin D3 25 MCG (1000 UT) Tablet TAKE ONE TABLET BY MOUTH EVERY DAY , Discontinued Nystatin 142283 UNIT/ML Suspension TAKE 5ML BY MOUTH 4 TIMES A DAY FOR 11 DAYS Mouth/Throat , Discontinued Ondansetron 4 MG Tablet Disintegrating DISSOLVE ONE TABLET BY MOUTH EVERY 8 HOURS NEEDED FOR NAUSEA AND VOMITING Oral , Medication List reviewed and reconciled with the patient * Allergies:?Augmentin: vomiti ng. Objective: * Vitals:?Ht: 62, Wt: 115, BMI :21.03, BP: 126/79, HR: 86, Temp: 97.0, Ht-cm: 157.48, Wt-k.16. * Examination: ???General Examination: ?GENERAL APPEARANCE:?pleasant, well [...] Assessment: 1.?Essential hypertension - I10???Notes :Her blood pressure has been loosely controlled recently. No change in her regimen is needed.??? Plan: * Treatment: 2.?Others? Continue Valsartan Tablet, [...] MOUTH TWICE A DAY DIRECTED;?Continue Nystatin Suspension, 406386 UNIT/ML, TAKE 5ML BY MOUTH 4 TIMES A DAY FOR 11 DAYS, Mouth/Throat;?Continue Ondansetron Tablet Disintegrating, 4 MG, DISSOLVE ONE TABLET BY MOUTH EVERY 8 HOURS NEEDED FOR NAUSEA AND VOMITING, Oral.?? * Follow Up:?8 weeks review la bs (Reason: OV REVIEW LABS) * Images: * The named appointment provid er may or may not be the originator of this progress note, and it is not deemed complete until electronically signed by the appointment provider. Sign off status: Pending * Provider:?Paresh Strong MD Date:?12/10 Generated for Sajan roberts/Crystal/eTransmitting on:?01/01/2025 01:42 PM EDT History and Physical [...]
--- OUTSIDE RECORDS SUMMARY | 2025-01-01 13:43 | XMS_ITS | Patient Health Record ---
Author Organization Paresh Strong III, MD Address [address] [facility] [place] [address] Care Team Providers Care Pet Trainer Name Role Phone Paresh Strong Primary Care Provider [phone] Allergies Allergen (clinical drug ingredient) Drug/Non Drug [...] eviewed by provider) Interpretation: Performing Lab: Notes/Report: [address] [address] XRay Report Signed Patient: Cathie Arguello MR#: [id number] 0 : 1965 Acct:[id number] Age/Sex: 59 / F ADM Date: 11/20/24 Loc: MICKI Attending Dr: Paresh Strong MD Ordering Physician: Paresh Strong MD Date of Service: 11/20/24 Procedure(s): XR hand RT min 3V Accession Number(s): [id number] cc: Paresh Strong MD EXAMINATION: XR HAND [...] 11/20/24 1244 DD/ 1219 TD/TT: 11/20/24 1225 Historiography Professor: [place] [address] XRay Report Signed Patient: Ross Arguello MR#: [id number] 0 : 1965 Acct:[id number] Age/Sex: 59 / F ADM Date: 11/20/24 Loc: HO.BOLA Attending Dr: Paresh Strong MD Ordering Physician: Paresh Strong MD Date of Service: 11/20/24 Procedure(s): XR salvador d RT min 3V Accession Number(s): [id number] cc: Paresh Strong MD EXAMINATION: XR HAND 3 OR MORE VIEWS RIGHT HISTORY: PAIN IN RIG HT HAND COMPARISON: There ar e no prior [...] Paresh Dennis MD 11/20/2024 12:44 PM EDT RP Dictated By: Paresh Dennis MD Signed By: <Electronically signed by Paresh Dennis MD in OV> 11/20/24 1244 DD/ 1219 TD/TT: 11/20/24 1225 Historiography Professor: Urinalysis and Microscopic Reviewed date:03/22/2024 07:07:11 AM Interpretation: Performing Lab:[facility], [address] [place] [phone] Notes/Report: Color Urine Yellow Appearance Urine Clear PH 5.5 5.0-9.0 Glucose Urine UA Negative Negative mg/dL Urine Blood Small (1+) Negative Specific [place] - Urine <= 1.005 1.005-1.025 Urine Protein Negative Neg-Trace mg/dL Urine Ketones Negative Negative mg/dL Nitrite Urine Negative Negative Leukocyte Esterase Urine Negative Negative RBC Urine 0-2 0-2 /HPF WBC Urine 0-5 0-5 /HPF Squamous Epithelial Cell Urine 0-2 0-2 /HPF Bacteria Urine None Seen None Seen Hyaline Casts Urine 0-2 0-2 /LPF Urine Culture Reviewed date:03/22/2024 07:07:11 AM Interpretation: Performing Lab:[facility], [address] [place] [phone] Notes/Report: Urine Culture Report Result Urine Culture < 10,000 cfu/ml Complete Blood Count Auto Di ff Reviewed date:03/22/2024 07:07:11 AM Interpretation: Performing Lab:[facility], [address] [place] [phone] Notes/Report: White Blood Count 12.8 4.8-10.8 X10*3/uL [...] 0.0-0.2 /100WBC Neutrophils Absolute Auto 8.7 2.0-8.3 x10*3/uL Imm Gran Abs Auto 0.07 0.00-0.03 X10*3/uL Lymphocytes Absolute Auto 2.6 1.2-4.9 X10*3/uL Monocytes Absolute Auto 1.3 0.1-1.2 X10*3/uL Eosinophils Absolute Auto 0.0 0.0-0.4 X10*3/uL Basophils Absolute Auto 0.1 0.0-0.2 X10*3/uL NRBC Abs Auto 0.000 0.0-0.012 X10*3/uL Comprehensive [place]. Panel Fa st Reviewed date:03/22/2024 07:07:11 AM Interpretation: Performing Lab:[facility], [address] [place] [phone] Notes/Report: Sodium 136 135-145 mmol/L Potassium 3.4 3.3-5.1 mmol/L Chloride 98 96-108 mmol/L Carbon Dioxide 25 22-29 mmol/L Anion Gap 16 12-20 Blood Urea Nitrogen 6 9-16 mg/dL Creatinine 0.64 0.5-1.4 mg/dL Estimated Glomerular Filt Rate > 60 NOTE: For -Spanish individuals, multiply the result by 1.210. Chronic [...] Panel Reviewed date:03/22/2024 07:07:11 AM Interpretation: Performing Lab:[address] [address] Notes/Report: Triglycerides 98 <150 mg/dL Desirable Triglyceride: [...] PCR Reviewed date:04/13/2024 05:52:45 AM Interpretation: Performing Lab:[address] [address] Notes/Report: Vaginal CT PCR NOT DETECTED Not [...] Panel Reviewed date:04/13/2024 05:52:45 AM Interpretation: Performing Lab:[address] [address] Notes/Report: Trichomonas vaginalis PCR NOT DETECTED Not [...] Culture Reviewed date:04/13/2024 05:52:44 AM Interpretation: Performing Lab:[address] [address] Notes/Report: Urine Culture No growth. PAP + HPV E6/E7 rfx 18/45 Reviewed date:04/17/2024 06:08:02 AM Interpretation: Performing Lab:[address] [address] Notes/Report: SEE SCANNED RESULTS IN EMR HPV 16 RNA TNP HPV 18/45 RNA TNP HPV mRNA E6/E7 Not Detected Not Detected Methodology: Electrical Unit Rebuilder-Mediat ed Amplification This assay detects E6/E7 viral messenger RNA (mRNA) from 14 high-risk HPV types (16,18,31,33,35,39,4 5,51,52,56,58,59,66, 68). Cervical sources are required for HPV testing. If a vaginal source from a patient who has had a total hysterectomy with removal of cervix was submitted, please contact the testing laboratory for alternative testing options. For additional information, please refer to http://education.SofGenie/fa q/SJV271q4 (This link if provided for information/ educational purposes only.) THIS TEST WAS PERFORMED AT: [facility] [address] [address] CURT FORD MD Thin Prep Source SEE NOTE None given Report Status TNP Clinical Information SEE NOTE None gi shalini LMP SEE NOTE NONE GIVEN Previous PAP SEE NOTE NONE GIVEN Previous Biopsy Date SEE NOTE NONE GI SHALINI State of Adequacy SEE NOTE Satisfactory for evaluation. Endocervical/transfo rmation zone component present. General Categorization TNP Interpretation/Result SEE NOTE Cytology Results: Negative for intraepithelial lesion or malignancy. Cytology Comment SEE NOTE This Pap test has been evaluated with computer assisted technology. Radiagraph Operator SEE NOTE GSG, CT(ASCP) CT screening location: [address] [address] Review Radiagraph Operator TNP Pathologist TNP PAP Infection TNP See Note SEE NOTE EXPLANATORY NOTE: The Pap is a screening test for cervical cancer. It is not a diagnostic test and is subject to false negative and false positive results. It is most reliable when a satisfactory sample, regularly obtained, is submitted with relevant clinical findings and history, and when the Pap result is evaluated along with historic and current clinical information. Basic Metabolic Panel Reviewed date:04/17/2024 06:08:02 AM Interpretation: Performing Lab:[facility], [address] [place] [phone] Notes/Report: Sodium 133 135-145 mmol/L Potassium 3.4 3.3-5.1 mmol/L Chloride 97 96-108 mmol/L Carbon Dioxide 24 22-29 mmol/L Anion Gap 15 12-20 Blood Urea Nitrogen 7 9-16 mg/dL Creatinine 0.59 0.5-1.4 mg/dL Creatinine Clr Calc Pharmacy 81.2 Provided height and weight: 157.48 cm, 51.2 kg. eGFR (calculated from the MDRD study equation) and eCrCl (calculated from the Cockcroft-Gault equation) are based on different parameters and may not yield comparable results. If eCrCl result is absurd, please check patient's height/weight. Estimated Glomerular Filt Rate > 60 NOTE: For -Spanish individuals, multiply the result by 1.210. Chronic Kidney Disease: Estimated GFR < 60 mL/min/1.73m2 Severe Kidney Disease: Estimated GFR < 15 mL/min/1.73m2 Glucose Random 151 60-115 mg/dL Calcium 8.8 8.4-10.2 mg/dL Magnesium Reviewed date:04/17/2024 06:08:02 AM Interpretation: Performing Lab:[facility], [address] [place] [phone] Notes/Report: Magnesium 2.8 1.6-2.6 mg/dL Troponin-I High Sensitivity Reviewed date:04/17/2024 06:08:02 AM Interpretation: Performing Lab:[facility], [address] [place] [phone] Notes/Report: Troponin-I High Sensitivity 2.8 <3.5-17.0 ng/L The Lopez high sensitivity Troponin-I results should be used in conjunction with other diagnostic information such as ECG, clinical observations and information, and patient symptoms to aid in the diagnosis of SC. SARS-CoV2/FLU/RSV Reviewed date:04/17/2024 06:08:02 AM Interpretation: Performing Lab:[facility], [address] [place] [phone] Notes/Report: Influenza A PCR NEGATIVE Negative Influenza B PCR NEGATIVE Negative Resp Syncy Virus RNA Qual PCR NEGATIVE Negative SARS COV2 PCR INHOUSE NEGATIVE Negative All test results must be correlated with clinical findings. Negative results do not preclude SARS-CoV2, influenza A virus, influenza B virus and/or RSV infection and should not be used as the sole basis for treatment or other patient management decisions. Negative results must be combined with clinical observations, patient history, and epidemiological information. This test has not been evaluated for monitoring treatment of infection. This test has been authorized by the FDA under an Emergency Use Authorization (EUA) for use by authorized laboratories. Testing performed on the [employer] utilizing real-time RT-PCR. All SARS CoV2 and positive influenza A/B results are reported to [facility]. CT angio chest PE protocol Reviewed date:04/17/2024 06:08:02 AM Interpretation: Performing Lab: Notes/Report: [address] [address] [address] Scan Report Signed Patient: Cathie Arguello MR#: [id number] 0 : 1965 Acct:[id number] Age/Sex: 58 / F ADM Date: 04/15/24 Loc: .ED Attending Dr: Ordering Physician: Shayne Carmichael MD Date of Service: 04/15/24 Procedure(s): CT angio chest PE protocol Accession Number(s): [id number] cc: Paresh Strong MD; Shayne Carmichael MD EXAMINATION: CT ANGIOGRAM OF THE CHEST WITH AND WITHOUT CONTRAST (CT PULMONARY ANGIOGRAM FOR PE) CLINICAL INFORMATION: dyspnea, elevated ddimer COMPARISON: Chest radiograph earlier today CT abdomen pelvis 03/28/2023. TECHNIQUE: Prior to contrast administration, noncontrast localization images were obtained. Subsequently, multidetector volumetric imaging was performed from the thoracic inlet to below the diaphragms following the administration of 85 mL Omnipaque 350 intravenous contrast. No contrast reaction reported Sagittal, coronal, and MIP oblique sagittal reformatted images were obtained on the CT workstation, uploaded to PACS, and reviewed. This CT examination was performed using dose optimization techniques as appropriate, variously including the following: *Automated exposure control *Adjustment of mA and/or kV according to patient size (this includes techniques or standardized protocols for targeted exams where dose is matched to indication/reason for exam; i.e. extremities or head) *Use of iterative reconstruction technique Total exam dose-length product 266 mGy-cm FINDINGS: QUALITY OF STUDY/CONTRAST BOLUS: Satisfactory. PULMONARY ARTERIES: No pulmonary emboli. THORACIC AORTA: No aneurysm. LUNG: There is interstitial prominence and Niyah B-lines. There are dependent infiltrates and groundglass changes at the lung bases, right greater than left. These findings are new when compared to the lung bases on the 03/28/2023 study. A calcified granuloma noted at the right lung base. PLEURA: No pleural effusion or pneumothorax. MEDIASTINUM: The left lobe of the thyroid is either quite small or absent. Normal heart size. No pericardial effusion. No hilar or mediastinal lymphadenopathy. No evidence of septal bowing or right heart strain. CORONARY ARTERY CALCIFICATION: None visualized on this study. CHEST WALL/AXILLA: No axillary or internal mammary lymphadenopathy. OSSEOUS STRUCTURES: No acute or suspicious osseous abnormality. UPPER ABDOMEN: Unremarkable. No reflux of contrast into the hepatic veins to suggest elevated right heart pressures. CT/CT angio chest PE protocol IMPRESSION: 1. No evidence of pulmonary emboli. 2. Interstitial prominence with Niyah B-lines and dependent infiltrates and groundglass changes at the lung bases, right greater than left. Findings are suggestive of interstitial and alveolar pulmonary edema. Infectious etiologies would be another possibility although considered to be much less likely VTE: negative. Dictated By: Aman Romo MD Signed By: <Electronically signed by Aman Romo MD in OV> 04/15/242023 DD/ 58 TD/TT: Historiography Professor: [place] [address] CT Scan Report Signed Patient: Ross Arguello MR#: [id number] 0 : 1965 Acct:[id number] Age/Sex: 58 / F ADM Date: 04/15/24 Loc: .ED Attending Dr: Ordering Physician: Shayne Carmichael MD Date of Service: 04/15/24 Procedure(s): CT ang io chest PE protocol Accession Number(s): [id number] cc: Paresh Strong MD; Shayne Carmichael MD EXAMINATION: CT ANGIOGRAM OF THE CHEST WITH AND WITHOUT CONTRAST (CT PULMONARY ANGIOGRAM FOR PE) CLINICAL INFORMATION: dyspnea, elevated ddimer COMPARISON: Chest radiograph ear lier today CT abdomen pelvis 03/28/2023. TECHNIQUE: Prior to contrast administration, noncontrast localization images were obtained. Subsequent ly, multidetector volumetric imaging was performed from the thoracic inlet to below the diaphragms following the administration of 85 mL Omnipaque 350 intravenous contrast. No contrast reaction reported Sagittal, coronal, a nd MIP oblique sagittal reformatted images were obtained on the CT workstation, uploaded to PACS, and reviewed. This CT examination was performed using dose optimization techniques as appropriate, various ly including the following: *Automated exposure control *Adjustment of mA an d/or kV according to patient size (this includes techniques or standardized protocols for targeted exams where dose is matched to indication/reason for exam; i.e. extremities or head) *Use of iterative reconstruction technique Total exam dose-crystal th product 266 mGy-cm FINDINGS: QUALITY OF STUDY/CONTRAST BOLUS: Satisfactory. PULMONARY ARTERIES: No pulmonary emboli. THORACIC AORTA: No aneurysm. LUNG: There is interstitial prominence and Niyah B-lines. There are dependent infiltrate s and groundglass changes at the lung bases, right greater than left. T hese findings are new when compared to the lung bases on the 023 study. A calcified granuloma noted at the right lung base. PLEURA: No pleural effusion or pneumothorax. MEDIASTINUM: The lef t lobe of the thyroid is either quite small or absent. Normal heart size. No pericardial effusion. No hilar or mediastinal lymphadenopathy. No evidence of septal bowing or right heart strain. CORONARY ARTERY CALCIFICATION: None visualized on this study. CHEST WALL/AXILLA: N o axillary or internal mammary lymphadenopathy. OSSEOUS STRUCTURES: No acute or suspicious osseous abnormality. UPPER ABDOMEN: Unremarkable. No reflux of contrast into the hepatic veins to suggest elevated right heart pressures. C T/CT angio chest PE protocol IMPRESSION: 1. No evidence of pulmonary emboli. 2. Interstitial prominence with Niyah B-lines and dependent infiltrates and groundglass changes at the lung bases, right greater than left. Findings are suggestive of interstitial and alveolar pulmonary edema. Infectious etiologies would be another possibility although considered to be much less likely VTE: negative. Dictated By: Aman Romo MD Signed By: <Electronically signed by Aman Romo MD in OV> 04/15/242023 DD/ 58 TD/TT: Electrical Unit Rebuilder ist: SS CT abdomen pelvis w con Reviewed date:04/17/2024 06:08:02 AM Interpretation: Performing Lab: Notes/Report: [address] [address] [address] Scan Report Signed with Nadira Patient: Cathie Arguello MR#: [id number] 0 : 1965 Acct:[id number] Age/Sex: 58 / F ADM Date: 04/15/24 Loc: HO.ED Attending Dr: Ordering Physician: Shayne Carmichael MD Date of Service: 04/15/24 Procedure(s): CT abdomen pelvis w IV con Accession Number(s): [id number] cc: Paresh Strong MD; Shayne Carmichael MD ADDENDUM This result was discussed with Shayne Carmichael MD at 8:45 PM on the evening of the exam and it was ascertained that the content of the report was understood at the time of direct communication. Addendum Dictated By: Aman Romo MD Addendum Signed By: <Electronically signed by Aman Romo MD in OV> 04/15/242052 Addendum Cosigned By: DD/ /03/1859 TD/TT: / EXAMINATION: CT ABDOMEN AND PELVIS WITH CONTRAST CLINICAL INFORMATION: Abdominal discomfort with question of diverticulitis COMPARISON: CT abdomen pelvis 05/21/2023 TECHNIQUE: Multidetector volumetric images were obtained from the superior aspect of the liver through the pubic symphysis following administration 85 mL of Omnipaque 350 intravenous contrast. Sagittal and coronal reformatted images were obtained on the technologist's workstation. Oral contrast: No This CT examination was performed using dose optimization techniques as appropriate, variously including the following: *Automated exposure control *Adjustment of mA and/or kV according to patient size (this includes techniques or standardized protocols for targeted exams where dose is matched to indication/reason for exam; i.e. extremities or head) *Use of iterative reconstruction technique DLP: 328 mGy-cm FINDINGS: LUNG BASES: See report of chest CT same day LIVER, GALLBLADDER, AND BILIARY TREE: The liver is normal in size, shape, and attenuation. No focal hepatic lesion or biliary ductal dilatation is present. The gallbladder is unremarkable with no evidence of radiopaque gallstones, gallbladder wall thickening, or obvious pericholecystic inflammatory changes. PANCREAS: Unremarkable. SPLEEN: Unremarkable. ADRENAL GLANDS: Unremarkable. KIDNEYS AND URETERS: The kidneys are normal in size, shape, and attenuation. No hydronephrosis, hydroureter, or calculi seen. No perinephric stranding. BLADDER: Unremarkable. GASTROINTESTINAL TRACT: Again seen is marked thickening of the sigmoid with extensive diverticular changes. No extraluminal air or drainable fluid collections are seen. There is a structure in the left adnexa abutting this which appears somewhat tubular. This may be a dilated tube with enhancing wall, possibly hydro-/pyosalpinx. A small amount of fluid surrounds this region. The appendix is normal. There is no evidence of small bowel obstruction. A lipoma may be present in the small bowel (13:42). ABDOMINAL WALL: No significant hernia is appreciated. LYMPH NODES: No retroperitoneal lymphadenopathy. VASCULAR: Calcific atherosclerotic changes are present in the aorta and iliac vessels in a Leriche-type pattern. Is this patient a smoker ? There is no evidence of an abdominal aortic aneurysm. PELVIC VISCERA: Please see discussion above regarding question of left-sided hydro-/pyosalpinx. Uterus is difficult to see secondary to abutting surrounding bowel OSSEOUS STRUCTURES: Degenerative changes in the spine predominantly at L4-S1 with grade 1 anterolisthesis of L4 upon L5. CT/CT abdomen pelvis w IV con IMPRESSION: 1. Marked thickening of the sigmoid with extensive diverticular changes. No extraluminal air or drainable fluid collections are seen. Findings could represent mild diverticulitis. Similar appearances have been seen in the past. 2. There is a structure in the left adnexa which appears somewhat tubular. This may be a dilated tube with enhancing wall, possibly hydro-/pyosalpinx. Transabdominal and more importantly endovaginal pelvic ultrasound is recommended for further evaluation. 3. Other incidental findings as described above. Fleischner guidelines were followed. Dictated By: Aman Romo MD Signed By: <Electronically signed by Aman Romo MD in OV> 04/15/242039 DD/ 58 TD/TT: Historiography Professor: [address] [address] [address] Scan Report Signed with Addenda Patient: Ross Arguello MR#: [id number] 0 : 1965 Acct:[id number] Age/Sex: 58 / F ADM Date: 04/15/24 Loc: HO.ED Attending Dr: Ordering Physician: Shayne Carmichael MD Date of Service: 04/15/24 Procedure(s): CT abd omen pelvis w IV con Accession Number(s): [id number] cc: Paresh Strong MD; Shayne Carmichael MD ADDENDUM This result was discussed with Shayne Carmichael MD at 8:45 PM on the evening of the exam and it was ascertained that the content of the report was understoo d at the time of direct communication. Addendum Dictated By : Aman Romo MD Addendum Signed By: <Electronically signed by Aman Romo MD in OV> 04/15/242052 Addendum Cosigned By: DD/ /03/1859 TD/TT: / EXAMINATION: CT ABDOMEN AND PELVI S WITH CONTRAST CLINICAL INFORMATION: Abdominal discomfort with question of diverticulitis COMPARISON: CT abdomen pelvis 05/21/2023 TECHNIQUE: Multidetector volume tric images were obtained from the superior aspect of the liver through the pubic symphysis following administration 85 mL of Omnipaque 350 intravenous contrast. Sagittal and coronal reformatted images were obtained on the technologist's workstation. Oral contrast: No This CT examination was performed using dose optimization techniques as appropriate, various ly including the following: *Automated exposure control *Adjustment of mA an d/or kV according to patient size (this includes techniques or standardized protocols for targeted exams where dose is matched to indication/reason for exam; i.e. extremities or head) *Use of iterative reconstruction technique DLP: 328 mGy-cm FINDINGS: LUNG BASES: See repo rt of chest CT same day LIVER, GALLBLADDER, AND BILIARY TREE: The liver is normal in size, shape, and attenuati on. No focal hepatic lesion or biliary ductal dilatation is presen t. The gallbladder is unremarkable with no evidence of radiopaque gallstones, gallbladder wall thickening, or obvious pericholecystic inflammatory changes. PANCREAS: Unremarkable. SPLEEN: Unremarkable. ADRENAL GLANDS: Unremarkable. KIDNEYS AND URETERS: The kidneys are normal in size, shape, and attenuation. No hydronephrosis, hydroureter, or calculi seen. No perinephric stranding. BLADDER: Unremarkable. GASTROINTESTINAL TRA CT: Again seen is marked thickening of the sigmoid with extensive diverticular changes. No extraluminal air or drainable fluid collections ar e seen. There is a structure in the left adnexa abutting this which appears somewhat tubular. This may be a dilated tube with enhancing wall, possibly hydro-/pyosalpinx. A small amount of fluid surrounds this region. The appendix is normal. There is no evidence of small anju wel obstruction. A lipoma may be present in the small bowel (13:42). ABDOMINAL WALL: No significant hernia is appreciated. LYMPH NODES: No retroperitoneal lymphadenopathy. VASCULAR: Calcific atherosclerotic changes are present in the aorta and iliac vessels in a Leriche-type pattern. Is this patient a smoker ? There is no evidence of an abdominal aortic aneurysm. PELVIC VISCERA: Plea se see discussion above regarding question of left-sided hydro-/pyosalpinx. Uterus is difficult to see secondary to abutting surrounding bowel OSSEOUS STRUCTURES: Degenerative changes in the spine predominantly at L4-S1 with grade 1 anterolisthesis of L4 upon L5. C T/CT abdomen pelvis w IV con IMPRESSION: 1. Marked thickening of the sigmoid with extensive diverticular changes. No extralum inal air or drainable fluid collections are seen. Findings could repre sent mild diverticulitis. Similar appearances have been seen in the past. 2. There is a struct ure in the left adnexa which appears somewhat tubular. This may be a dilated tube with enhancing wall, possibly hydro-/pyosalpinx. Transabdominal and more importantly endovaginal pelvic ultrasound is recommended for further evaluation. 3. Other incidental findings as described above. Fleischner guideline s were followed. Dictated By: Aman Romo MD Signed By: <Electronically signed by Aman Romo MD in OV> 04/15/242039 DD/ 58 TD/TT: Electrical Unit Rebuilder ist: SS XR chest 1V Reviewed date:04/17/2024 06:08:02 AM Interpretation: Performing Lab: Notes/Report: [address] [address] XRay Report Signed Patient: Cathie Arguello MR#: [id number] 0 : 1965 Acct:[id number] Age/Sex: 58 / F ADM Date: 04/15/24 Loc: HO.ED Attending Dr: Ordering Physician: Doron Vaughn MD Date of Service: 04/15/24 Procedure(s): XR chest 1V Accession Number(s): [id number] cc: Paresh Strong MD; Doron Vaughn MD EXAMINATION: XR CHEST CLINICAL INFORMATION: Chest pain COMPARISON: None available TECHNIQUE: Frontal view of the chest was obtained. FINDINGS: There is some mild reticular nodular densities seen at right lung base. No consolidations with air bronchograms are seen. No other abnormality is noted involving the heart, lungs, mediastinum, bony thorax or soft tissues. XR/XR chest 1V IMPRESSION: Mild reticular nodular densities right lung base. No prior studies are available for comparison to assess if this is a chronic finding. Dictated By: Aman Romo MD Signed By: <Electronically signed by Aman Room MD in OV> 04/15/241740 DD/ 153 TD/TT: Historiography Professor: [address] [address] XRay Report Signed Patient: Ross Arguello MR#: [id number] 0 : 1965 Acct:[id number] Age/Sex: 58 / F ADM Date: 04/15/24 Loc: .ED Attending Dr: Ordering Physician: Doron Vaughn MD Date of Service: 04/15/24 Procedure(s): XR r[address] st 1V Accession Number(s): [id number] cc: Paresh Strong MD; Doron Vaughn MD EXAMINATION: XR CHEST CLINICAL INFORMATION: Chest pain COMPARISON: None available TECHNIQUE: Frontal view of the chest was obtained. FINDINGS: There is some mild reticular nodular densities seen at right lung base. No consolidations wi th air bronchograms are seen. No other abnormality is noted involving t he heart, lungs, mediastinum, bony thorax or soft tissues. X R/XR chest 1V IMPRESSION: Mild reticular nodul ar densities right lung base. No prior studies are available for compar eric to assess if this is a chronic finding. Dictated By: Aman Romo MD Signed By: <Electronically signed by Aman Romo MD in OV> 04/15/241740 DD/ 153 TD/TT: Electrical Unit Rebuilder ist: US pelvic and transvaginal Reviewed date:04/17/2024 06:08:02 AM Interpretation: Performing Lab: Notes/Report: [address] [address] Ultrasound Report Signed Patient: Cathie Arguello MR#: [id number] 0 : 1965 Acct:[id number] Age/Sex: 58 / F ADM Date: 04/15/24 Loc: [place] [address]: Yoni Mitchell MD Ordering Physician: Shayne Carmichael MD Date of Service: 04/15/24 Procedure(s): US pelvic and transvaginal Accession Number(s): [id number] cc: Paresh Strong MD; Shayne Carmichael MD EXAMINATION: ULTRASOUND PELVIC, COMPLETE CLINICAL INFORMATION: Pelvic pain. History of right-sided salpingectomy COMPARISON: CT abdomen pelvis April 15, 2024. Pelvic ultrasound January 30, 2023 TECHNIQUE: Transvaginal: Used to better visualize pelvic structures Transabdominal: Not adequate for visualization. Spectral Doppler and color Doppler exam was utilized. LMP: Postmenopausal FINDINGS: Exam limited by bowel. There is a large fluid-filled loop of bowel in the left adnexal area. There is left-sided tenderness. UTERUS: Unremarkable. Uterus is retroverted and retroflexed. Uterus measures 6.2 x 1.9 x 4.1 cm. Endometrial thickness 0.2 cm ADNEXA: Ovarian vascularity:Doppler demonstrates both arterial and venous vascular flow in the right and left ovary. No evidence of ovarian torsion. Right Ovary: 2.1 x 0.8 x 2.1 cm. Volume 1.8 mL. Left Ovary: Left ovary measures 4.6 x 2.6 x 2.6 cm. Volume 15.7 mL. Anechoic follicle/cyst measuring 2.1 x 1.6 x 1.4 cm. There is a corpus luteum cyst with hypervascular rim in the ovary measuring 1 cm. Adjacent to the left ovary the left adnexa is a thick-walled structure with fluid centrally. The rogers hypervascular on color Doppler. This measures approximately 2.6 x 2.8 x 1.5 cm. This correlates to the rim-enhancing structure in the left adnexa on CT abdomen pelvis April 15, 2024. Given the acute process of the adjacent sigmoid colon colon this is likely a small abscess in the pelvis. A tubo-ovarian abscess is less likely. Cul-de-sac: No Fluid US/US pelvic and transvaginal IMPRESSION: 1. Normal ultrasound of uterus. 2. Normal right and left ovary. 3. Thick-walled hypervascular structure in the left adnexa measuring 2.6 x 2.8 x 1.5 cm. This correlates to the rim-enhancing structure in the left adnexa on CT abdomen pelvis April 15, 2024. Given the acute process of the adjacent sigmoid colon, this is likely a small abscess in the pelvis. A tubo-ovarian abscess is less likely. Dictated By: Bashir Lozano MD Signed By: <Electronically signed by Bashir Lozano MD in OV> 04/15/242225 DD/ 32 TD/TT: Historiography Professor: [place] [address] Ultrasound Report Signed Patient: Ross Arguello MR#: [id number] 0 : 1965 Acct:[id number] Age/Sex: 58 / F ADM Date: 04/15/24 Loc: [facility]: Yoni Mitchell MD Ordering Physician: Shayne Carmichael MD Date of Service: 04/15/24 Procedure(s): US pel sharri and transvaginal Accession Number(s): [id number] cc: Paresh Strong MD; Shayne Carmichael MD EXAMINATION: ULTRASOUND PELVIC, COMPLETE CLINICAL INFORMATION: Pelvic pain. History of right-sided salpingectomy COMPARISON: CT abdomen pelvis Au 2023. Pelvic ultrasound January 30, 2023 TECHNIQUE: Transvaginal: Used t o better visualize pelvic structures Transabdominal: Not adequate for visualization. Spectral Doppler and color Doppler exam was utilized. LMP: Postmenopausal FINDINGS: Exam limited by cameron montoya. There is a large fluid-filled loop of bowel in the left adnexal are a. There is left-sided tenderness. UTERUS: Unremarkable. Uterus is retroverted and retroflexed. Uterus measures 6.2 x 1.9 x 4.1 cm. Endometrial thickness 0.2 cm ADNEXA: Ovarian vascularity:Doppler demonstrates both arterial and venous vascular flow in the right and left ovary. No evidence of ovarian torsion. Right Ovary: 2.1 x 0 .8 x 2.1 cm. Volume 1.8 mL. Left Ovary: Left ova ry measures 4.6 x 2.6 x 2.6 cm. Volume 15.7 mL. Anechoic follicle/cy st measuring 2.1 x 1.6 x 1.4 cm. There is a corpus luteum cyst with hypervascular rim in the ovary measuring 1 cm. Adjacent to the left ovary the left adnexa is a thick-walled structure with fluid centrally . The rogers hypervascular on color Doppler. This measures approximate ly 2.6 x 2.8 x 1.5 cm. This correlates to the rim-enhancing struct ure in the left adnexa on CT abdomen pelvis April 15, 2024. Given the a cute process of the adjacent sigmoid colon colon this is likely a sma ll abscess in the pelvis. A tubo-ovarian abscess is less likely. Cul-de-sac: No Fluid U S/US pelvic and transvaginal IMPRESSION: 1. Normal ultrasound of uterus. 2. Normal right and left ovary. 3. Thick-walled hypervascular structure in the left adnexa measuring 2.6 x 2.8 x 1.5 cm. This correlates to the rim-enhancing structure in the left adnexa on C T abdomen pelvis April 15, 2024. Given the acute process of the adjac ent sigmoid colon, this is likely a small abscess in the pelvis. A tubo-ovarian abscess is less likely. Dictated By: Camilo Lozano MD Signed By: <Electronically signed by Bashir Lozano MD in OV> 04/15/242225 DD/ 32 TD/TT: Electrical Unit Rebuilder ist: SANJANA Complete Blood Count Auto Di ff Reviewed date:04/17/2024 06:08:02 AM Interpretation: Performing Lab:[facility], [address] [place] [phone] Notes/Report: White Blood Count 7.5 4.8-10.8 X10*3/uL Red Blood Count 4.16 4.20-5.50 X10*6/uL Hemoglobin 14.4 12.0-16.0 g/dl Hematocrit 40.8 37.0-47.0 % Mean Corpuscular Volume 98.1 80.0-98.0 fL Mean Corpuscular Hemoglobin 34.6 27.0-33.0 pg Mean Corpuscular HGB Conc 35.3 31.0-35.0 g/dl Red Cell Distribution Width 12.9 11.0-16.0 % Platelet Count 194 160-400 X10*3/uL Mean Platelet Volume 9.6 9.4-12.3 fL Neutrophils Percent Auto 75.9 45-73 % Imm Gran Pct Auto 0.5 0.0-0.4 % Lymphocytes Percent Auto 8.1 20-40 % Monocytes Percent Auto 10.7 2-11 % Eosinophils Percent Auto 4.4 0-4 % Basophils Percent Auto 0.4 0-2 % NRBC Pct Auto 0.0 0.0-0.2 /100WBC Neutrophils Absolute Auto 5.7 2.0-8.3 x10*3/uL Imm Gran Abs Auto 0.04 0.00-0.03 X10*3/uL Lymphocytes Absolute Auto 0.6 1.2-4.9 X10*3/uL Monocytes Absolute Auto 0.8 0.1-1.2 X10*3/uL Eosinophils Absolute Auto 0.3 0.0-0.4 X10*3/uL Basophils Absolute Auto 0.0 0.0-0.2 X10*3/uL NRBC Abs Auto 0.000 0.0-0.012 X10*3/uL Basic Metabolic Panel Reviewed date:04/17/2024 06:08:02 AM Interpretation: Performing Lab:[facility], [address] [place] [phone] Notes/Report: Sodium 135 135-145 mmol/L Potassium 3.7 3.3-5.1 mmol/L Chloride 106 96-108 mmol/L Carbon Dioxide 20 22-29 mmol/L Anion Gap 13 12-20 Blood Urea Nitrogen 6 9-16 mg/dL Creatinine 0.53 0.5-1.4 mg/dL Creatinine Clr Calc Pharmacy 90.4 Provided height and weight: 157.48 cm, 51.2 kg. eGFR (calculated from the MDRD study equation) and eCrCl (calculated from the Cockcroft-Gault equation) are based on different parameters and may not yield comparable results. If eCrCl result is absurd, please check patient's height/weight. Estimated Glomerular Filt Rate > 60 NOTE: For -Spanish individuals, multiply the result by 1.210. Chronic Kidney Disease: Estimated GFR < 60 mL/min/1.73m2 Severe Kidney Disease: Estimated GFR < 15 mL/min/1.73m2 Glucose Random 113 60-115 mg/dL Calcium 8.7 8.4-10.2 mg/dL Magnesium Reviewed date:04/17/2024 06:08:02 AM Interpretation: Performing Lab:[facility], [address] [place] [phone] Notes/Report: Magnesium 2.3 1.6-2.6 mg/dL Lipid Panel with Reflex Reviewed date:04/17/2024 06:08:02 AM Interpretation: Performing Lab:[facility], [address] [place] [phone] Notes/Report: Triglycerides 109 <150 mg/dL Desirable Triglyceride: less than 150 mg/dL Borderline High Triglyceride 150-199 mg/dL High Triglyceride: 200-499 mg/dL Very High Triglyceride: greater than or equal to 5OO mg/dL Cholesterol 122 <200 mg/dL Desirable Cholesterol: less than 200 mg/dL Borderline High Cholesterol: 200-239 mg/dL High Cholesterol: greater than 239 mg/dL LDL Cholesterol Calculated 74 <100 mg/dL Desirable LDL: less than 100 mg/dL Near Optimal/Above Optimal LDL: 110-129 mg/dL Borderline High LDL: 130-159 mg/dL High LDL: 160-189 mg/dL Very High LDL: greater than or equal to 190 mg/dL HDL Cholesterol 27 >40 mg/dL Desirable HDL: greater than 40 mg/dL Note: This HDL assay may give artificially low results in patients with liver disease. CT NG by PCR Reviewed date:04/17/2024 06:08:02 AM Interpretation: Performing Lab:[address] [phone] Notes/Report: Vaginal CT PCR NOT DETECTED Not [...] or psychological consequences. Bacterial Vaginosis Panel Reviewed date:04/17/2024 06:08:02 AM Interpretation: Performing Lab:[address] [phone] Notes/Report: Trichomonas vaginalis PCR NOT DETECTED Not [...] the age of 14. Mila Group PCR DETECTED Not Detect Mila glab krusei PCR NOT DETECTED Not Detect Urine Culture Reviewed date:04/21/2024 05:11:55 AM Interpretation: Performing Lab:[address] [phone] Notes/Report: Urine Culture No growth. Hemoglobin A1c Reviewed date:04/17/2024 06:08:02 AM Interpretation: Performing Lab:[address] [phone] Notes/Report: Hemoglobin A1c % 4.7 <6.0 % Hemoglobin A1C Reference Range Adults: 4.8 - 6.0 % Non diabetic: < 6.0 % Goal: < 7.0 % Additional Action Suggested: > 8.0 % Note: Hemoglobin A1c results are invalid for patients with abnormal amounts of HbF. Blood transfusions may impact the HbA1c concentration in the patient sample. Estimated Average Glucose 88 eAG = Estimated average glucose which is %A1C expressed as average glucose, using the formula of the [id number]-Xwfjruv Average Glucose study (ADAG), Diabetes Care, Vol.31,#8, 2007 UA ClnCatch+Micro w/rflx Cul t Reviewed date:04/17/2024 06:08:02 AM Interpretation: Performing Lab:[address] [phone] Notes/Report: [id number] Urine, Clean Catch Color Urine Dark Yellow Appearance Urine Turbid PH 5.5 5.0-9.0 Glucose Urine UA Negative Negative mg/dL Urine Blood Large (3+) Negative Specific [place] - Urine 1.025 1.005-1.025 Urine Protein 30 (1+) Neg-Trace mg/dL Urine Ketones Negative Negative mg/dL Nitrite Urine Negative Negative Leukocyte Esterase Urine Large (3+) Negative RBC Urine >20 0-2 /HPF WBC Urine >50 0-5 /HPF Squamous Epithelial Cell Urine 0-2 0-2 /HPF Bacteria Urine None Seen None Seen Hyaline Casts Urine 0-2 0-2 /LPF Complete Blood Count no Diff Reviewed date:04/21/2024 05:11:54 AM Interpretation: Performing Lab:[address] [phone] Notes/Report: White Blood Count 12.4 4.8-10.8 X10*3/uL Red Blood Count 3.91 4.20-5.50 X10*6/uL Hemoglobin 13.6 12.0-16.0 g/dl Hematocrit 39.1 37.0-47.0 % Mean Corpuscular Volume 100.0 80.0-98.0 fL Mean Corpuscular Hemoglobin 34.8 27.0-33.0 pg Mean Corpuscular HGB Conc 34.8 31.0-35.0 g/dl Red Cell Distribution Width 12.6 11.0-16.0 % Platelet Count 384 160-400 X10*3/uL Mean Platelet Volume 9.5 9.4-12.3 fL NRBC Pct Auto 0.0 0.0-0.2 /100WBC NRBC Abs Auto 0.000 0.0-0.012 X10*3/uL Basic Metabolic Panel Reviewed date:04/21/2024 05:11:54 AM Interpretation: Performing Lab:[facility], [address] [place] [phone] Notes/Report: Sodium 137 135-145 mmol/L Potassium 3.4 3.3-5.1 mmol/L Chloride 103 96-108 mmol/L Carbon Dioxide 25 22-29 mmol/L Anion Gap 12 12-20 Blood Urea Nitrogen 4 9-16 mg/dL Creatinine 0.49 0.5-1.4 mg/dL Creatinine Clr Calc Pharmacy 96.6 Provided height and weight: 157.48 cm, 49.5 kg. eGFR (calculated from the MDRD study equation) and eCrCl (calculated from the Cockcroft-Gault equation) are based on different parameters and may not yield comparable results. If eCrCl result is absurd, please check patient's height/weight. Estimated Glomerular Filt Rate > 60 NOTE: For -Spanish individuals, multiply the result by 1.210. Chronic Kidney Disease: Estimated GFR < 60 mL/min/1.73m2 Severe Kidney Disease: Estimated GFR < 15 mL/min/1.73m2 Glucose Random 60 60-115 mg/dL Calcium 9.6 8.4-10.2 mg/dL Type and Screen Reviewed date:04/21/2024 05:11:54 AM Interpretation: Performing Lab:[facility], [address] [place] [phone] Notes/Report: Blood Type OP Antibody Screen NEGATIVE Pathology Reviewed date:04/27/2024 06:34:28 AM Interpretation: Performing Lab:[facility], [address] [place] [phone] Notes/Report: ---- Name: Cathie Arguello Age/Sex: 58/F : 1965 Unit#: [id number] Attend Dr: Ranjan Lundberg DO Re04/15/24 Status : ADM IN Location: [facility] 360-1 Disch: ---- SPEC : [id number] RECD : 04/21/24 STATUS: SANJUANITA [facility] NUM: [id number] NADIA: 04/21/24-[address]: Tony Garnett MD ENTERED: 04/21/24 04 SP TYPE: Surgical OTHR DR: Paresh Strong MD, Nayyer MD ORDERED: Gross Micro L3, Gross Micro L5 Diagnosis A. Colon, left sigmo id, segmental resection: Diverticulitis and diverticulosis with mural abscess format ion, acute organizing serositis and adhesions. B. Colon, anastomoti c donuts, excision: Two annular portions of colonic mucosa and wall within normal limits. Clinical History Pre-Op Dx: Diverticulosis, bronchitis Post-Op Dx: Diverticulosis Microscopic Description Microscopic sections reviewed. Material Received A. Sigmoid colon left B. Anastomotic donuts Gross Description A. Received in forma lobito is an 18.5 cm segment of colon received with 2 stapled resection margins ranging from 3.2-4.5 cm in diameter. The serosa is congested with focal fibrous adhesions and up to 3.5 cm of attached, focally indurated mesentery. The mucosa is green and glistening with unremarkable mucosal folds. Multiple diverticula are identified and sectioning through t he pericolonic soft tissue shows a 1.5 cm pericolic abscess. The wall is thickened and fibrotic measuring up to 1.5 cm. Mass lesions are not identified grossly. Section code: 1-2: Circumferential margin 3-4: Diverticulum associated with pericolic abscess 5-6: Additional diverticula B. Received in forma lobito on a metal anvil are 2 intact anastomotic ring measuring 3.7 x 1.8 x 1.0 cm and 1.9 x 1.7 x 0.7 cm. The mucosa is congested and glistening. Pipe Bowl Paint Trimmer sections are submitt ed in B1. (JEAN-PIERRE Maciel) CONTINUED ON NEXT PAGE ---- Name: Cathie Arguello Age/Sex: 58/F : 1965 Unit#: [id number] Attend Dr: Ranjan Lundberg DO Re04/15/24 Status : ADM IN Location: [facility] 360-1 Disch: ---- SPEC : [id number] RECD : 04/21/24659 STATUS: SANJUANITA APONTE NUM: [id number] NADIA: 04/21/24-1200 [facility] DR: Tony Garnett MD ENTERED: 04/21/24-14 04 SP TYPE: Surgical OTHR DR: Paresh Strong MD, Nayyer MD ORDERED: Gross Micro L3, Gross Micro L5 Copies To: Paresh Strong MD [address] [place] [id number] Sherrill Hernandez MD [address] [place] [id number] Tony Garnett MD [facility] [address] [place] [address] ---- Signed (signature on file) Sandy John MD 04/22/24 1123 ---- END OF REPORT Gram stain Reviewed date:04/27/2024 06:34:28 AM Interpretation: Performing Lab:[facility], [address] [place] [phone] Notes/Report: Abscess Left Lower Quadrant Gram stain Gram stain results: Gram stain 2+ polys Gram stain 1+ epithelial cells Gram stain 3+ red blood cells Gram stain No organisms seen Routine Culture Reviewed date:04/27/2024 06:34:28 AM Interpretation: Performing Lab:[facility], [address] [place] [phone] Notes/Report: Abscess Left Lower Quadrant O:CANALB Mila albicans Routine Culture Quant Org ID Routine Culture 1+ Routine Culture [facility] N/A Routine Culture Susceptibility not routinely performed on this isolate. Complete Blood Count no Diff Reviewed date:04/27/2024 06:34:28 AM Interpretation: Performing Lab:[facility], [address] [place] [phone] Notes/Report: White Blood Count 23.0 4.8-10.8 X10*3/uL Red Blood Count 3.29 4.20-5.50 X10*6/uL Hemoglobin 11.4 12.0-16.0 g/dl Hematocrit 32.9 37.0-47.0 % Mean Corpuscular Volume 100.0 80.0-98.0 fL Mean Corpuscular Hemoglobin 34.7 27.0-33.0 pg Mean Corpuscular HGB Conc 34.7 31.0-35.0 g/dl Red Cell Distribution Width 12.8 11.0-16.0 % Platelet Count 433 160-400 X10*3/uL Mean Platelet Volume 9.3 9.4-12.3 fL NRBC Pct Auto 0.0 0.0-0.2 /100WBC NRBC Abs Auto 0.000 0.0-0.012 X10*3/uL Basic Metabolic Panel Reviewed date:04/27/2024 06:34:28 AM Interpretation: Performing Lab:[facility], [address] [place] [phone] Notes/Report: Sodium 138 135-145 mmol/L Potassium 2.9 3.3-5.1 mmol/L Critical [K] sent by a secure message and confirmed by (DR LUNDBERG, 04/22/24 AT 0724) Tech: SIENKIR Chloride 101 96-108 mmol/L Carbon Dioxide 27 22-29 mmol/L Anion Gap 13 12-20 Blood Urea Nitrogen 3 9-16 mg/dL Creatinine 0.47 0.5-1.4 mg/dL Creatinine Clr Calc Pharmacy 100.6 Provided height and weight: 157.48 cm, 49.5 kg. eGFR (calculated from the MDRD study equation) and eCrCl (calculated from the Cockcroft-Gault equation) are based on different parameters and may not yield comparable results. If eCrCl result is absurd, please check patient's height/weight. Estimated Glomerular Filt Rate > 60 NOTE: For -Spanish individuals, multiply the result by 1.210. Chronic Kidney Disease: Estimated GFR < 60 mL/min/1.73m2 Severe Kidney Disease: Estimated GFR < 15 mL/min/1.73m2 Glucose Random 116 60-115 mg/dL Calcium 8.8 8.4-10.2 mg/dL Complete Blood Count Auto Di ff Reviewed date:04/27/2024 06:34:28 AM Interpretation: Performing Lab:[facility], [address] [place] [phone] Notes/Report: White Blood Count 15.1 4.8-10.8 X10*3/uL Red Blood Count 3.18 4.20-5.50 X10*6/uL Hemoglobin 10.9 12.0-16.0 g/dl Hematocrit 31.8 37.0-47.0 % Mean Corpuscular Volume 100.0 80.0-98.0 fL Mean Corpuscular Hemoglobin 34.3 27.0-33.0 pg Mean Corpuscular HGB Conc 34.3 31.0-35.0 g/dl Red Cell Distribution Width 12.9 11.0-16.0 % Platelet Count 464 160-400 X10*3/uL Mean Platelet Volume 9.3 9.4-12.3 fL Neutrophils Percent Auto 67.7 45-73 % Imm Gran Pct Auto 0.7 0.0-0.4 % Lymphocytes Percent Auto 22.4 20-40 % Monocytes Percent Auto 7.8 2-11 % Eosinophils Percent Auto 1.1 0-4 % Basophils Percent Auto 0.3 0-2 % NRBC Pct Auto 0.0 0.0-0.2 /100WBC Neutrophils Absolute Auto 10.2 2.0-8.3 x10*3/uL Imm Gran Abs Auto 0.11 0.00-0.03 X10*3/uL Lymphocytes Absolute Auto 3.4 1.2-4.9 X10*3/uL Monocytes Absolute Auto 1.2 0.1-1.2 X10*3/uL Eosinophils Absolute Auto 0.2 0.0-0.4 X10*3/uL Basophils Absolute Auto 0.1 0.0-0.2 X10*3/uL NRBC Abs Auto 0.000 0.0-0.012 X10*3/uL Comprehensive [place]. Panel Fa st Reviewed date:04/27/2024 06:34:28 AM Interpretation: Performing Lab:[facility], [address] [place] [phone] Notes/Report: Sodium 137 135-145 mmol/L Potassium 3.2 3.3-5.1 mmol/L Chloride 104 96-108 mmol/L Carbon Dioxide 25 22-29 mmol/L Anion Gap 11 12-20 Blood Urea Nitrogen 3 9-16 mg/dL Creatinine 0.48 0.5-1.4 mg/dL Creatinine Clr Calc Pharmacy 98.6 Provided height and weight: 157.48 cm, 49.5 kg. eGFR (calculated from the MDRD study equation) and eCrCl (calculated from the Cockcroft-Gault equation) are based on different parameters and may not yield comparable results. If eCrCl result is absurd, please check patient's height/weight. Estimated Glomerular Filt Rate > 60 NOTE: For -Spanish individuals, multiply the result by 1.210. Chronic Kidney Disease: Estimated GFR < 60 mL/min/1.73m2 Severe Kidney Disease: Estimated GFR < 15 mL/min/1.73m2 Glucose Fasting 74 60-99 mg/dL Calcium 9.1 8.4-10.2 mg/dL Bilirubin Total 0.3 0.0-1.0 mg/dL Aspartate Amino Transferase 20 5-31 U/L Alanine Aminotransferase 13 0-31 U/L Total Protein 5.7 6.5-8.0 g/dL Albumin Level 3.0 3.5-5.0 g/dL Alkaline Phosphatase 41 39-117 U/L Complete Blood Count Auto Di ff Reviewed date:04/27/2024 06:34:28 AM Interpretation: Performing Lab:[facility], [address] [place] [phone] Notes/Report: White Blood Count 11.4 4.8-10.8 X10*3/uL Red Blood Count 3.21 4.20-5.50 X10*6/uL Hemoglobin 11.3 12.0-16.0 g/dl Hematocrit 32.1 37.0-47.0 % Mean Corpuscular Volume 100.0 80.0-98.0 fL Mean Corpuscular Hemoglobin 35.2 27.0-33.0 pg Mean Corpuscular HGB Conc 35.2 31.0-35.0 g/dl Red Cell Distribution Width 12.8 11.0-16.0 % Platelet Count 468 160-400 X10*3/uL Mean Platelet Volume 9.2 9.4-12.3 fL Neutrophils Percent Auto 59.1 45-73 % Imm Gran Pct Auto 0.7 0.0-0.4 % Lymphocytes Percent Auto 28.1 20-40 % Monocytes Percent Auto 7.0 2-11 % Eosinophils Percent Auto 4.5 0-4 % Basophils Percent Auto 0.6 0-2 % NRBC Pct Auto 0.0 0.0-0.2 /100WBC Neutrophils Absolute Auto 6.7 2.0-8.3 x10*3/uL Imm Gran Abs Auto 0.08 0.00-0.03 X10*3/uL Lymphocytes Absolute Auto 3.2 1.2-4.9 X10*3/uL Monocytes Absolute Auto 0.8 0.1-1.2 X10*3/uL Eosinophils Absolute Auto 0.5 0.0-0.4 X10*3/uL Basophils Absolute Auto 0.1 0.0-0.2 X10*3/uL NRBC Abs Auto 0.000 0.0-0.012 X10*3/uL Comprehensive [place]. Panel Fa st Reviewed date:04/27/2024 06:34:28 AM Interpretation: Performing Lab:[facility], [address] [place] [phone] Notes/Report: Sodium 138 135-145 mmol/L Potassium 3.7 3.3-5.1 mmol/L Slight Hemoly sis Chloride 104 96-108 mmol/L Carbon Dioxide 27 22-29 mmol/L Anion Gap 11 12-20 Blood Urea Nitrogen 3 9-16 mg/dL Creatinine 0.42 0.5-1.4 mg/dL Creatinine Clr Calc Pharmacy 112.6 Provided height and weight: 157.48 cm, 49.5 kg. eGFR (calculated from the MDRD study equation) and eCrCl (calculated from the Cockcroft-Gault equation) are based on different parameters and may not yield comparable results. If eCrCl result is absurd, please check patient's height/weight. Estimated Glomerular Filt Rate > 60 NOTE: For -Spanish individuals, multiply the result by 1.210. Chronic Kidney Disease: Estimated GFR < 60 mL/min/1.73m2 Severe Kidney Disease: Estimated GFR < 15 mL/min/1.73m2 Glucose Fasting 83 60-99 mg/dL Calcium 8.5 8.4-10.2 mg/dL Bilirubin Total 0.3 0.0-1.0 mg/dL Aspartate Amino Transferase 18 5-31 U/L Slight Hemolysis Alanine Aminotransferase 12 0-31 U/L Total Protein 5.9 6.5-8.0 g/dL Albumin Level 3.1 3.5-5.0 g/dL Alkaline Phosphatase 36 39-117 U/L UA ClnCatch+Micro w/rflx Cul t Reviewed date:04/27/2024 06:34:28 AM Interpretation: Performing Lab:[facility], [address] [place] [phone] Notes/Report: Urine, Clean Catch Color Urine Yellow Appearance Urine Clear PH 7.5 5.0-9.0 Glucose Urine UA Negative Negative mg/dL Urine Blood Negative Negative Specific [place] - Urine 1.010 1.005-1.025 Urine Protein Negative Neg-Trace mg/dL Urine Ketones Negative Negative mg/dL Nitrite Urine Negative Negative Leukocyte Esterase Urine Negative Negative RBC Urine 0-2 0-2 /HPF WBC Urine 0-5 0-5 /HPF Squamous Epithelial Cell Urine 0-2 0-2 /HPF Bacteria Urine None Seen None Seen Hyaline Casts Urine 0-2 0-2 /LPF Complete Blood Count Auto Di ff Reviewed date:04/27/2024 06:34:28 AM Interpretation: Performing Lab:[facility], [address] [place] [phone] Notes/Report: White Blood Count 9.3 4.8-10.8 X10*3/uL Red Blood Count 3.39 4.20-5.50 X10*6/uL Hemoglobin 11.7 12.0-16.0 g/dl Hematocrit 33.6 37.0-47.0 % Mean Corpuscular Volume 99.1 80.0-98.0 fL Mean Corpuscular Hemoglobin 34.5 27.0-33.0 pg Mean Corpuscular HGB Conc 34.8 31.0-35.0 g/dl Red Cell Distribution Width 12.7 11.0-16.0 % Platelet Count 500 160-400 X10*3/uL Mean Platelet Volume 9.1 9.4-12.3 fL Neutrophils Percent Auto 57.1 45-73 % Imm Gran Pct Auto 1.0 0.0-0.4 % Lymphocytes Percent Auto 28.4 20-40 % Monocytes Percent Auto 7.5 2-11 % Eosinophils Percent Auto 5.4 0-4 % Basophils Percent Auto 0.6 0-2 % NRBC Pct Auto 0.0 0.0-0.2 /100WBC Neutrophils Absolute Auto 5.3 2.0-8.3 x10*3/uL Imm Gran Abs Auto 0.09 0.00-0.03 X10*3/uL Lymphocytes Absolute Auto 2.6 1.2-4.9 X10*3/uL Monocytes Absolute Auto 0.7 0.1-1.2 X10*3/uL Eosinophils Absolute Auto 0.5 0.0-0.4 X10*3/uL Basophils Absolute Auto 0.1 0.0-0.2 X10*3/uL NRBC Abs Auto 0.000 0.0-0.012 X10*3/uL Comprehensive [place]. Panel Fa st Reviewed date:04/27/2024 06:34:28 AM Interpretation: Performing Lab:[facility], [address] [place] [phone] Notes/Report: Sodium 139 135-145 mmol/L Potassium 3.3 3.3-5.1 mmol/L Chloride 104 96-108 mmol/L Carbon Dioxide 24 22-29 mmol/L Anion Gap 14 12-20 Blood Urea Nitrogen 3 9-16 mg/dL Creatinine 0.45 0.5-1.4 mg/dL Creatinine Clr Calc Pharmacy 105.1 Provided height and weight: 157.48 cm, 49.5 kg. eGFR (calculated from the MDRD study equation) and eCrCl (calculated from the Cockcroft-Gault equation) are based on different parameters and may not yield comparable results. If eCrCl result is absurd, please check patient's height/weight. Estimated Glomerular Filt Rate > 60 NOTE: For -Spanish individuals, multiply the result by 1.210. Chronic Kidney Disease: Estimated GFR < 60 mL/min/1.73m2 Severe Kidney Disease: Estimated GFR < 15 mL/min/1.73m2 Glucose Fasting 89 60-99 mg/dL Calcium 9.2 8.4-10.2 mg/dL Bilirubin Total 0.4 0.0-1.0 mg/dL Aspartate Amino Transferase 13 5-31 U/L Alanine Aminotransferase 11 0-31 U/L Total Protein 6.2 6.5-8.0 g/dL Albumin Level 3.3 3.5-5.0 g/dL Alkaline Phosphatase 43 39-117 U/L Blood Urea Nitrogen Reviewed date:05/09/2024 05:50:01 AM Interpretation: Performing Lab:[facility], [address] [place] [phone] Notes/Report: Blood Urea Nitrogen 10 9-16 mg/dL Creatinine Reviewed date:05/09/2024 05:50:01 AM Interpretation: Performing Lab:[facility], [address] [place] [phone] Notes/Report: Creatinine 0.64 0.5-1.4 mg/dL Estimated Glomerular Filt Rate > 60 NOTE: For -Spanish individuals, multiply the result by 1.210. Chronic Kidney Disease: Estimated GFR < 60 mL/min/1.73m2 Severe Kidney Disease: Estimated GFR < 15 mL/min/1.73m2 MM tomosynthesis screening B I Reviewed date:06/09/2024 06:07:30 AM Interpretation: Performing Lab: Notes/Report: [facility]'s [address] [place] [address] Mammography Report Signed Patient: Cathie Arguello MR#: [id number] 0 : 1965 Acct:[id number] Age/Sex: 58 / F ADM Date: 05/16/24 Loc: HO.MAMMO Attending Dr: Phillip Mandujano MD Ordering Physician: Phillip Mandujano MD Results: 1Negativ e Date of Service: 05/16/24 Follow Up: 1 Year From [facility] Mammogram Procedure(s): MM tomosynthesis screening BI Accession Number(s): [id number] cc: Paresh Strong MD; Phillip Mandujano MD EXAMINATION: MM SCREENING DIGITAL BREAST TOMOSYNTHESIS, BILATERAL CLINICAL INFORMATION: Screening. Asymptomatic. COMPARISON: Mammography: Comparison is made with available priors TECHNIQUE: Digital breast mammography with tomosynthesis is performed in both the craniocaudal and mediolateral oblique views along with computer-aided detection (CAD). FINDINGS: There are scattered areas of fibroglandular density (ACR BI-RADS breast composition Category b). There are no significant masses, abnormal calcifications, or other abnormalities. MM/MM tomosynthesis screening BI IMPRESSION: No mammographic evidence of malignancy. ASSESSMENT: BI-RADS BI-RADS 1 - Negative RECOMMENDATION: Routine annual mammography screening. 1 year F/U This examination should not preclude the clinical evaluation of a suspicious palpable abnormality. This patient's information was entered into a reminder system with a target due date for their next mammogram. Electronically signed by: Tammy Weaver DO 06/01/2024 06:41 PM EDT RP Dictated By: Tammy Weaver DO Signed By: <Electronically signed by Tammy Weaver DO in OV> 06/01/24 1841 DD/ 1240 TD/TT: 05/16/24 1300 Historiography Professor: [place] [facility]'s [address] [place] [address] Mammography Report Signed Patient: Ross Arguello MR#: [id number] 0 : 1965 Acct:[id number] Age/Sex: 58 / F ADM Date: 05/16/24 Loc: HO.MAMMO Attending Dr: Phillip Mandujano MD Ordering Physician: Phillip Mandujano MD Results: 1Negativ e Date of Service: 05/16/24 Follow Up: 1 Year From Orig inal Mammogram Procedure(s): MM tomosynthesis screening BI Accession Number(s): [id number] cc: Paresh Strong MD; Phillip Mandujano MD EXAMINATION: MM SCREENING DIGITAL BREAST TOMOSYNTHESIS, BILATERAL CLINICAL INFORMATION: Screening. Asymptomatic. COMPARISON: Mammography: Compari son is made with available priors TECHNIQUE: Digital breast mammography with tomosynthesis is performed in both the craniocaudal and mediolateral oblique views along with computer-aided detection (CAD). FINDINGS: There are scattered areas of fibroglandular density (ACR BI-RADS breast composition Category b). There are no signifi cant masses, abnormal calcifications, or other abnormalities. M M/MM tomosynthesis screening BI IMPRESSION: No mammographic evid ence of malignancy. ASSESSMENT: BI-RADS BI-RADS 1 - Negative RECOMMENDATION: Routine annual mammography screening. 1 year F/U This examination dalila uld not preclude the clinical evaluation of a suspicious palpable abnormality. This patient's information was entered into a reminder system with a target due date for their next mammogram. Electronically laurie d by: Tammy Weaver DO 06/01/2024 06:41 PM EDT Dictated By: Tammy Weaver DO Signed By: <Electronically signed by Tammy Weaver DO in OV> 06/01/24 1841 DD/ 1240 TD/TT: 05/16/24 1300 Historiography Professor: MAMMOGRAM DIGITAL BILATERAL SCREEN Reviewed date:11/20/2024 11:19:13 AM Interpretation:undefined Performing Lab: Notes/Report: undefined Creatinine GFR POC Reviewed date:07/24/2024 09:50:42 AM Interpretation: Performing Lab:[facility], [address] [place] [phone] Notes/Report: [id number] 0.82 >60 1533 DIAZAAR Creatinine POC 0.8 0.5-1.4 mg/dL GFR POC > 60 Chronic Kidney Disease: Estimated GFR < 60 mL/min/1.73m2 Severe Kidney Disease: Estimated GFR < 15 mL/min/1.73m2 CT abdomen pelvis w con Reviewed date:08/04/2024 07:46:36 AM Interpretation: Performing Lab: Notes/Report: [address] [address] [address] Scan Report Signed Patient: Cathie Arguello MR#: [id number] 0 : 1965 Acct:[id number] Age/Sex: 59 / F ADM Date: 07/22/24 Loc: HO.CT Attending Dr: Tony Garnett MD Ordering Physician: Tony Garnett MD Date of Service: 07/22/24 Procedure(s): CT abdomen pelvis w IV con Accession Number(s): [id number] cc: Paresh Strong MD; Tony Garnett MD; Phillip Mandujano MD EXAMINATION: CT ABDOMEN AND PELVIS WITH CONTRAST CLINICAL INFORMATION: Other specified diseases of anus and rectum. Status post sigmoid colectomy and colorectal anastomosis. Rectal mass noted on MRI. COMPARISON: CT dated April 15, 2024 TECHNIQUE: Multidetector volumetric images were obtained from the superior aspect of the liver through the pubic symphysis following administration 80 mL of Omnipaque 350 intravenous contrast without reported immediate complications. Sagittal and coronal reformatted images were obtained on the technologist's workstation. Oral contrast: No This CT examination was performed using dose optimization techniques as appropriate, variously including the following: *Automated exposure control *Adjustment of mA and/or kV according to patient size (this includes techniques or standardized protocols for targeted exams where dose is matched to indication/reason for exam; i.e. extremities or head) *Use of iterative reconstruction technique DLP: 225 mGy-cm FINDINGS: Submitted for interpretation on July 31, 2024. LIVER, GALLBLADDER, AND BILIARY TREE: Liver measures 15 cm. No focal mass. Decreased enhancement pattern. Portal veins and hepatic veins are patent. Intrahepatic portion of the IVC is patent. No intrahepatic or extrahepatic biliary ductal dilatation. Gallbladder is contracted. No pericholecystic fluid collection or gallbladder wall thickening. PANCREAS: No focal pancreatic mass or peripancreatic fluid collection. No main pancreatic ductal dilatation. There is a focal calcification in the midportion of the splenic artery. SPLEEN: 6 cm. No focal mass. ADRENAL GLANDS: No nodular lesions. KIDNEYS AND URETERS: Normal enhancement pattern without gross renal mass or hydronephrosis. Subcentimeter cyst both kidneys. BLADDER: Fluid-filled. GASTROINTESTINAL TRACT: Sutures at the rectosigmoid colon demonstrated Fluid-filled pre and post anastomotic site without gross enhancing lesion. Few scattered diverticula in the sigmoid colon. No intestinal obstruction pattern. No ascites. No pneumoperitoneum. No pneumatosis intestinalis. No peripheral enhancing fluid collections in the peritoneal cavity. Appendix is normal. ABDOMINAL WALL: Post surgical/treatment changes at infraumbilical midline laparotomy incision without fluid collection. LYMPH NODES: Nonspecific prominent mesenteric lymph nodes. VASCULAR: Calcified plaques throughout the abdominal aorta wall and iliac arteries without aneurysm or dissection. Calcified plaques in the proximal main renal arteries and mesenteric arteries. PELVIC VISCERA: No gross masses in the adnexa or the uterus. OSSEOUS STRUCTURES: Osteopenia versus osteoporosis. Multilevel thoracolumbar spondylosis. Grade 1 anterolisthesis L4-5 on a degenerative basis resulting in bilateral neuroforamina stenosis. Fatty replaced bone marrow in the sacrum. No gross lytic or blastic lesions. CT/CT abdomen pelvis w IV con IMPRESSION: Post surgical/treatment changes at the rectosigmoid colon and anastomosis without gross mass at the anastomotic site or gross lymphadenopathy. Fleischner guidelines were followed. Electronically signed by: Asim Moralez MD 07/31/2024 10:13 AM EST Dictated By: Asim Harrington MD Signed By: <Electronically signed by Asim Esposito MD in OV> 07/31/24 1013 DD/ 1545 TD/TT: 07/22/24 1648 Historiography Professor: [place] [address] CT Scan Report Signed Patient: Ross Arguello MR#: [id number] 0 : 1965 Acct:[id number] Age/Sex: 59 / F ADM Date: 07/22/24 Loc: HO.CT Attending Dr: Tony Garnett MD Ordering Physician: Tony Garnett MD Date of Service: 07/22/24 Procedure(s): CT abd omen pelvis w IV con Accession Number(s): [id number] cc: Paresh Strong MD; Tony Garnett MD; Phillip Mandujano MD EXAMINATION: CT ABDOMEN AND PELVI S WITH CONTRAST CLINICAL INFORMATION: Other specified dise ases of anus and rectum. Status post sigmoid colectomy and colore ctal anastomosis. Rectal mass noted on MRI. COMPARISON: CT dated April 15, 2024 TECHNIQUE: Multidetector volume tric images were obtained from the superior aspect of the liver through the pubic symphysis following administration 80 mL of Omnipaque 350 intravenous contrast without reported immediate complications. Sagit larry and coronal reformatted images were obtained on the technologist's workstation. Oral contrast: No This CT examination was performed using dose optimization techniques as appropriate, various ly including the following: *Automated exposure control *Adjustment of mA an d/or kV according to patient size (this includes techniques or standardized protocols for targeted exams where dose is matched to indication/reason for exam; i.e. extremities or head) *Use of iterative reconstruction technique DLP: 225 mGy-cm FINDINGS: Submitted for interpretation on July 31, 2024. LIVER, GALLBLADDER, AND BILIARY TREE: Liver measures 15 cm . No focal mass. Decreased enhancement pattern. Portal veins and hep atic veins are patent. Intrahepatic portion of the IVC is patent. No intrahepatic or extrahepatic biliary ductal dilatation. Gallbladder is contracted. No pericholecystic fluid collection or gallbladder wall thickening. PANCREAS: No focal pancreatic mass or peripancreatic fluid collection. No main pancreatic ductal dilatation. There is a focal calcification in the midportion of th e splenic artery. SPLEEN: 6 cm. No foc al mass. ADRENAL GLANDS: No nodular lesions. KIDNEYS AND URETERS: Normal enhancement pattern without gross renal mass or hydronephrosis. Subcentimeter cyst b oth kidneys. BLADDER: Fluid-filled. GASTROINTESTINAL TRACT: Sutures at the rectosigmoid colon demonstrated Fluid-filled pre and post anastomotic sit e without gross enhancing lesion. Few scattered diverticula in the sigmoid colon. No intestinal obstruction pattern. No ascites. No pneumoperitoneum. No pneumatosis intestinalis. No peripheral enhanc ing fluid collections in the peritoneal cavity. Appendix is normal. ABDOMINAL WALL: Post surgical/treatment changes at infraumbilical midline laparotomy incision without fluid collection. LYMPH NODES: Nonspec ific prominent mesenteric lymph nodes. VASCULAR: Calcified plaques throughout the abdominal aorta wall and iliac arteries witho ut aneurysm or dissection. Calcified plaques in the proximal main renal arteries and mesenteric arteries. PELVIC VISCERA: No g ross masses in the adnexa or the uterus. OSSEOUS STRUCTURES: Osteopenia versus osteoporosis. Multilevel thoracolumbar spondylosis. Grade 1 anterolisthesis L4-5 on a degenerative basis resulting in bilateral neuroforamina stenosis. Fatty replaced bone marrow in the sacrum. No gross lytic or blastic lesions. C T/CT abdomen pelvis w IV con IMPRESSION: Post surgical/treatm ent changes at the rectosigmoid colon and anastomosis without gross mass at the anastomotic site or gross lymphadenopathy. Fleischner guideline s were followed. Electronically laurie d by: Asim Moralez MD 07/31/2024 10:13 AM EST Dictated By: Asim Garcia MD Signed By: <Electronically signed by Asim Esposito MD in OV> 07/31/24 1013 DD/ 1545 TD/TT: 07/22/24 1648 Historiography Professor: XR sinus min 3V (Not yet rev iewed by provider) Interpretation: Performing Lab: Notes/Report: [address] [address] XRay Report Signed Patient: Cathie Arguello MR#: [id number] 0 : 1965 Acct:[id number] Age/Sex: 59 / F ADM Date: 11/27/24 Loc: MICKI Attending Dr: Paresh Strong MD Ordering Physician: Paresh Strong MD Date of Service: 11/27/24 Procedure(s): XR sinus min 3V Accession Number(s): [id number] cc: Paresh Strong MD EXAMINATION: XR PARANASAL SINUSES 3 VIEWS HISTORY: PAIN MAXILLARY SINUS COMPARISON: There are no prior studies for comparison. FINDINGS: Four views of the paranasal sinuses are submitted. The bilateral frontal, maxillary, ethmoid, and sphenoid sinuses are well-aerated and clear. There are sutures in the frontal regions. XR/XR sinus min 3V IMPRESSION: Unremarkable examination of the paranasal sinuses. Electronically signed by: Paresh Dennis MD 11/28/2024 08:26 AM EDT RP Dictated By: Paresh Dennis MD Signed By: <Electronically signed by Paresh Dennis MD in OV> 11/28/24 0826 DD/ 1203 TD/TT: 11/27/24 1222 Historiography Professor: [address] [address] XRay Report Signed Patient: Ross Arguello MR#: [id number] 0 : 1965 Acct:[id number] Age/Sex: 59 / F ADM Date: 11/27/24 Loc: MICKI Attending Dr: Paresh Strong MD Ordering Physician: Paresh Strong MD Date of Service: 11/27/24 Procedure(s): XR sin us min 3V Accession Number(s): [id number] cc: Paresh Strong MD EXAMINATION: XR PARANASAL SINUSES 3 VIEWS HISTORY: PAIN MAXILL SUHA SINUS COMPARISON: There ar e no prior studies for comparison. FINDINGS: Four views of the paranasal sinuses are submitted. The bilateral frontal, maxillary, ethmoid, and sphenoid sinuses are well-aerated and seth ar. There are sutures in the frontal regions. X R/XR sinus min 3V IMPRESSION: Unremarkable examina tion of the paranasal sinuses. Electronically laurie d by: Paresh Dennis MD 11/28/2024 08:26 AM EDT RP Dictated By: Paresh Dennis MD Signed By: <Electronically signed by Paresh Dennis MD in OV> 11/28/24 0826 DD/ 1203 TD/TT: 11/27/24 1222 Historiography Professor: Dora Oneill. Panel [facility] (Not yet reviewed by provider) Interpretation: Performing Lab:[facility], [address] [place] [phone] Notes/Report: Sodium 131 135-145 mmol/L Potassium 4.2 3.3-5.1 mmol/L Slight Hemolysis.Interpret result with caution. Chloride 101 96-108 mmol/L Carbon Dioxide 21 22-29 mmol/L Anion Gap 13 12-20 Blood Urea Nitrogen 5 9-16 mg/dL Creatinine 0.55 0.5-1.4 mg/dL Estimated Glomerular Filt Rate > 60 Chronic Kidney Disease: Estimated GFR < 60 mL/min/1.73m2 Severe Kidney Disease: Estimated GFR < 15 mL/min/1.73m2 Glucose Fasting 91 60-99 mg/dL Calcium 10.0 8.4-10.2 mg/dL Bilirubin Total 0.7 0.0-1.0 mg/dL Aspartate Amino Transferase 40 5-31 U/L Slight Hemolysis.Interpret result with caution. Alanine Aminotransferase 32 0-31 U/L Total Protein 8.5 6.5-8.0 g/dL Albumin Level 4.9 3.5-5.0 g/dL Alkaline Phosphatase 74 39-117 U/L Lipid Panel (Not yet reviewe d by provider) Interpretation: Performing Lab:[facility], [address] [place] [phone] Notes/Report: Triglycerides 114 <150 mg/dL Desirable Triglyceride: less than 150 mg/dL Borderline High Triglyceride 150-199 mg/dL High Triglyceride: 200-499 mg/dL Very High Triglyceride: greater than or equal to 5OO mg/dL Cholesterol 192 <200 mg/dL Desirable Cholesterol: less than 200 mg/dL Borderline High Cholesterol: 200-239 mg/dL High Cholesterol: greater than 239 mg/dL LDL Cholesterol Calculated 106 <100 mg/dL Desirable LDL: less than 100 mg/dL Near Optimal/Above Optimal LDL: 110-129 mg/dL Borderline High LDL: 130-159 mg/dL High LDL: 160-189 mg/dL Very High LDL: greater than or equal to 190 mg/dL HDL Cholesterol 64 >40 mg/dL Desirable HDL: greater than 40 mg/dL Note: This HDL assay may give artificially low results in patients with liver disease. Reason For Referral Reason Evaluate and Treat Right Hand Pain ? Fracture of Fingers 2,3 & 4 Diagnosis 1 Right hand pain (M79 .641) Referral Organization Paresh Strong III, MD Referring Provider First Name Paresh Referring Provider Last Name Strong Referring Provider Speciality Internal edicine Referred Provider Kalina De La Torre Referred Provider Specialty Hand Surgery General Notes DPriti 11/24/2024 11:39:52 AM > Referral faxed with progress note and xr Referral Priority Routine Referral Appointment Date 11/26/2024 Reason blocked left ear Diagnosis 1 Ear pain, left (H92. 02) Referral Organization Paresh Strong III, MD Referring Provider First Name Paresh Referring Provider Last Name Strong Referring Provider Speciality Internal edicine Referred Provider [facility] Referred Provider Specialty Otolaryngolo gy General Notes Kamilla Proctor CMA 12/01 10:25:29 AM > ref/progress note/x ray faxed to [facility] Referral Priority Routine Reason Evaluate and Treat Facial Injury in past to nose, eye, ear and History of surgeries Pain at site of past surgery Diagnosis 1 Atypical facial pain (G50.1) Referral Organization Paresh Strong III, MD Referring Provider First Name Paresh Referring Provider Last Name Strong Referring Provider Speciality Internal edicine Referred Provider [facility] Referred Provider Specialty Otolaryngolo gy Referral Priority Routine Medications Medication SIG (Take, Route, Frequency, Duration) Notes Start Date End Date Status Valsartan 40 MG 1/2 tablet Orally Tw ice a day Active Ventolin HFA 108 (90 Base) MCG/ACT two puffs Inhalation every 4 hrs for shortness of breath 05/08/2024 Active Metoprolol Tartrate 25 MG TAKE ONE HALF TABLET BY MOUTH TWICE DAILY Oral Twice a day Active Loratadine 10 MG 1 tablet Orally Once a day for 30 days 01/01/2025 06/30/2025 Active Oyster Shell Calcium 500 MG TAKE ONE TABLET BY MOUTH TWICE A DAY DIRECTED Active Nystatin 296769 UNIT/ML TAKE 5ML BY MOUT H 4 TIMES A DAY FOR 11 DAYS Mouth/Throat Active Fluticasone Furoate 27.5 MCG/SPRAY 2 sprays (1 spray in each nostril) Nasally Once a day for 30 days 01/01/2025 Active Myrbetriq 50 MG 1 tablet Orally Once a day for 30 days 01/01/2025 05/01/2025 Active Ondansetron 4 MG DISSOLVE ONE TABLET BY MOUTH EVERY 8 HOURS NEEDED FOR NAUSEA AND VOMITING Oral Active Myrbetriq 50 MG TAKE ONE TABLET BY M OUTH EVERY DAY Oral Active Vitamin D3 25 MCG (1000 UT) TAKE ONE TABLET BY MOUTH EVERY DAY Active Immunizations Vaccine Route Administration Date Status Comme nts Tetanus and Diphtheria Toxoids Adsorbed Unknown 08/08/2002 Administered Influenza, quad Unknown 08/15/2018 Administered COVID- 19 Vaccine Unknown 09/18/2022 Administered COVID- 19 Vaccine Unknown 05/08/2021 Administered COVID- 19 Vaccine Unknown 06/05/2021 Administered COVID- 19 Vaccine Unknown 05/29/2021 Administered COVID- 19 Vaccine Unknown 11/24/2021 Administered Influenza no Preserv 3 and > Unknown 10/10/2016 Administered Influenza no Preserv 3 and > Unknown 10/08/2013 Administered Influenza no Preserv 3 and > Unknown 06/06/2012 Administered COVID Pfizer Bivalent Unknown 09/18/2022 Administered Tdap Unknown 12/22/2014 Administered Td (adult) Unknown 08/04/2002 Administered Influenza-iiv4 p-free high dose Unknown 09/18/2022 Administered Influenza Vaccine Afluria IM Intramuscular 05/27/2024 Admi nistered Social History Tobacco Use: Social History Observation [...] month (2 points) Points 8 Interpretation Positive Problems Problem Type SNOMED Code ICD Code Onset Dates Problem Status W/U Status Risk Notes Problem Hyperlipidemia (80670774) Hyperlipidemia (E78.5) Active confirmed Comprehensive blood work with a fasting lipid profile will be done tomorrow morning. Problem [id number] Underweight (R63.6) Active confirmed She has lost 4 pounds with the surgery and her body mass index is now 19. We have discussed diet and nutrition. Her weight will be monitored carefully. Problem [id number] Lumbar radiculopathy (M54.16) Active confirmed She is experiencing a flareup of the pain, likely due to nerve impingement from a disc. An MRI has been ordered and a surgical consultation may be necessary. She is gooing to use heat and rest and ibuprofen at this time. Dexamethasone will be added. If the pain does not improve rapidly. Problem 8238575 Primary insomnia (F51.01) Active confirmed We discussed melatonin. She will continue on current therapy. Problem 72992903 Ureterolithiasis (N20.1) Active confirmed This diagnosis was made in [place] had an episode of renal colic. In recent years she has had no recurrence. She is not aware of any history of hypercalcemia or hyperuricemia. Problem 97195253 Essential hypertension (I10) Active confirmed Her blood pressure has been loosely controlled recently. No change in her regimen is needed. Problem 87481894 Tobacco dependence (F17.200) Active confirmed She has been se en by the gastroenterology consult nontender evaluation is in progress. Problem Urinary incontinence (030318951) Urinary incontinence (R32) Active confirmed She has been to see urology and had the cystoscopy. Apparently there were no significant findings. We have requested the note. She has had no hematuria. Problem 330928023 Cervical spondylosis (M47.812) Active confirmed She has chronic pain with range of motion of the neck. There is no radiculopathy. Problem Vitamin D deficiency (36953177) Vitamin D deficiency (E55.9) Active confirmed Vitamin D supplementation was discussed today. I recommended 1000 units daily. Problem 99977102 Pelvic mass (R19.00) Active confirmed She is going to see SENIOR REACTOR OPERATOR tomorrow. She says she is scheduled for a biopsy of this mass as an outpatient. Problem [id number] Diverticulitis (K57.92) Active confirmed She has undergo ne an elective sigmoid colectomy. She has a surgical incision from the umbilicus to pubis. The pathology shows no malignancy. There is significant postoperative pain. Additional oxycodone was prescribed. She is going to see surgery tomorrow in follow-up. Problem Constipation (63740829) Constipation (K59.00) Active confirmed Problem 81247487 Spinal stenosis of lumbar region, unspecified whether neurogenic claudication present (M48.061) Active confirmed She will refrai n from heavy lifting. If necessary, she will see surgery. Problem 96917102 Degenerative disc disease at L5-S1 level (M51.37) Active confirmed She has had several MRIs in the past for ppain like this. She has done nothing she can think of to cause this exacerbation. Problem 801721533 Mural thickening of sigmoid colon (K63.9) Active confirmed This is a findi ng on both the ultrasound and CT scan. We have requested a gastroenterology consultation or colonoscopy. She is waiting to hear from them. The rectal examination today was normal. Cystoscopy was brown and guaiac negative. There was significant pain on manipulating the uterus. Colonoscopy seems indicated. He was also referred to SENIOR REACTOR OPERATOR. Problem 585671923 Recurrent sinus infections (J32.9) Active confirmed Problem 63798642 Closed nondisplaced fracture of phalanx of finger, unspecified finger, unspecified phalanx, initial encounter (Q73.525N) Active confirmed I suspect that there are fractures in the fingers of the right hand which are swollen and have limited flexion. I ordered an x-ray. She will need a consultation from hand surgery. Problem 736684850 Closed displaced fracture of proximal phalanx of right index finger with delayed healing, subsequent encounter (S62.610G) Active confirmed She has 3 fractured fingers and will undergo a course of physical therapy under the supervision of the hand surgeon. Vital Signs Heart Rate 86 /min 01/01/2025 Temperature 97.0 degrees Fahrenheit 01/01/2025 Blood pressure diastolic 79 mm Hg 01/01/2025 Height 62 in 01/01/2025 Blood pressure systolic 126 mm Hg 01/01/2025 Weight 115 lbs 01/01/2025 BMI 21.03 kg/m2 01/01/2025 Encounters Encounter Location Date Provider Diagnosis Paresh Strong III, MD [address] [place] [address] [place] [address] 01/01/2025 Paresh Strong Essential hypertensi on I10 Paresh Strong III, MD [address] [place] [address] [place] [address] 03/25/2024 Paresh Strong Essential hypertensi on I10 ; Diverticulitis K57.92 ; Degenerative disc disease at L5-S1 level M51.37 ; Urinary incontinence R32 ; Cervical spondylosis M47.812 ; Lumbar radiculopathy M54.16 ; Spinal stenosis of lumbar region, unspecified whether neurogenic claudication present M48.061 ; Tobacco dependence F17.200 ; Hyperlipidemia E78.5 and Vitamin D deficiency E55.9 Paresh Strong III, MD [address] [place] [address] [place] [address] 05/07/2024 Paresh Strong Essential hypertensi on I10 ; Diverticulitis K57.92 ; Degenerative disc disease at L5-S1 level M51.37 ; Lumbar radiculopathy M54.16 ; Spinal stenosis of lumbar region, unspecified whether neurogenic claudication present M48.061 ; Primary insomnia F51.01 ; Ureterolithiasis N20.1 ; Tobacco dependence F17.200 ; Postoperative pain G89.18 ; Pelvic mass R19.00 and Underweight R63.6 Paresh Strong III, MD [address] [place] [address] [place] [address] 05/27/2024 Paresh Strong Essential hypertensi on I10 ; Encounter for immunization Z23 ; Degenerative disc disease at L5-S1 level M51.37 ; Cervical spondylosis M47.812 ; Lumbar radiculopathy M54.16 ; Constipation K59.00 ; Mural thickening of sigmoid colon K63.9 ; Tobacco dependence F17.200 ; Hyperlipidemia E78.5 ; Adnexal mass N94.89 and Rectal mass K62.89 Paresh Strong III, MD [address] [place] [address] [place] [address] 11/20/2024 Paresh Strong Essential hypertensi on I10 ; Closed nondisplaced fracture of phalanx of finger, unspecified finger, unspecified phalanx, initial encounter S62.609A ; Urinary incontinence R32 ; Cervical spondylosis M47.812 ; Lumbar radiculopathy M54.16 ; Spinal stenosis of lumbar region, unspecified whether neurogenic claudication present M48.061 ; Primary insomnia F51.01 ; Tobacco dependence F17.200 and Hyperlipidemia E78.5 Paresh Strong III, MD [address] [place] [address] [place] [address] 11/27/2024 Paresh Strong Essential hypertensi on I10 ; Closed displaced fracture of proximal phalanx of right index finger with delayed healing, subsequent encounter S62.610G ; Pain of maxillary sinus J34.89 ; Degenerative disc disease at L5-S1 level M51.37 ; Lumbar radiculopathy M54.16 ; Ureterolithiasis N20.1 ; Primary insomnia F51.01 and Tobacco dependence F17.200 Paresh Strong III, MD [address] [place] [address] [place] [address] 12/04/2024 Paresh Strong Essential hypertensi on I10 ; Closed displaced fracture of proximal phalanx of right index finger with delayed healing, subsequent encounter S62.610G ; Urinary incontinence R32 ; Degenerative disc disease at L5-S1 level M51.37 ; Cervical spondylosis M47.812 ; Ureterolithiasis N20.1 ; Tobacco dependence F17.200 and Lumbar radiculopathy M54.16 Paresh Strong III, MD [address] [place] [address] [place] [address] 02/21/2024 Paresh Strong UTI symptoms R39.9 Paresh Strong III, MD [address] [place] [address] [place] [address] 02/21/2024 Paresh Strong III, MD [address] [place] [address] [address] [place], [place] [address] 04/16/2024 Paresh Strong III, MD [address] [place] [address] [place] [address] 04/18/2024 Paresh Strong III, MD [address] [place] [address] [place] [address] 05/08/2024 Parseh Strong III, MD [address] [place] [address] [place] [address] 08/05/2024 Paresh Strong Assessments Encounter Date Diagnosis (ICD Code) Assessment Notes T reatment Notes Treatment Clinical Notes 01/01/2025 Essential hypertension (ICD-10 - I10) Her blood pressure has been loosely controlled recently. No change in her regimen is needed. 03/25/2024 Essential hypertension (ICD-10 - I10) Her blood pressure today is 131/83 and no change in her regimen was made. 03/25/2024 Diverticulitis (ICD-10 - K57.92) The condition has become chronic and she is scheduled for resection of the sigmoid colon April 11, 2024. There is no contraindication surgery. She is medically cleared for the procedure. 05/07/2024 Essential hypertension (ICD-10 - I10) Her blood pressure today is 108/70 and no change in her regimen was made. She has lost 4 pounds with surgery. 05/07/2024 Diverticulitis (ICD-10 - K57.92) She has undergone an elective sigmoid colectomy. She has a surgical incision from the umbilicus to pubis. The pathology shows no malignancy. There is significant postoperative pain. Additional oxycodone was prescribed. She is going to see surgery tomorrow in follow-up. 05/27/2024 Encounter for immunization (ICD-10 - Z23) She received influenza vaccine today. 05/27/2024 Essential hypertension (ICD-10 - I10) Her blood presssure today iss 120/75. No change in her regimen is needed. 11/20/2024 Essential hypertension (ICD-10 - I10) Her blood presssure today is Within normal limits. No change in her regimen is needed. 11/20/2024 Closed nondisplaced fracture of phalanx of finger, unspecified finger, unspecified phalanx, initial encounter (ICD-10 - S62.609A) I suspect that there are fractures in the fingers of the right hand which are swollen and have limited flexion. I ordered an x-ray. She will need a consultation from hand surgery. 11/27/2024 Essential hypertension (ICD-10 - I10) Her blood presssure today is within normal limits. No change in her regimen is needed. 11/27/2024 Closed displaced fracture of proximal phalanx of right index finger with delayed healing, subsequent encounter (ICD-10 - S62.610G) She has 3 fractured fingers and will undergo a course of physical therapy under the supervision of the hand surgeon. 12/04/2024 Essential hypertension (ICD-10 - I10) Her blood pressure has been loosely controlled recently. No change in her regimen is needed. 12/04/2024 Closed displaced fracture of proximal phalanx of right index finger with delayed healing, subsequent encounter (ICD-10 - S62.610G) She has 3 fractured fingers and will undergo a course of physical therapy under the supervision of the hand surgeon. 03/25/2024 Degenerative disc disease at L5-S1 level (ICD-10 - M51.37) She has had several MRIs in the past for ppain like this. She has done nothing she can think of to cause this exacerbation. 05/07/2024 Degenerative disc disease at L5-S1 level (ICD-10 - M51.37) She has had several MRIs in the past for ppain like this. She has done nothing she can think of to cause this exacerbation. 05/27/2024 Degenerative disc disease at L5-S1 level (ICD-10 - M51.37) She has had several MRIs in the past for ppain like this. She has done nothing she can think of to cause this exacerbation. 11/20/2024 Urinary incontinence (ICD-10 - R32) She has been to see urology and had the cystoscopy. Apparently there were no significant findings. We have requested the note. She has had no hematuria. 11/27/2024 Pain of maxillary sinus (ICD-10 - J34.89) She was treated with an antibiotic for a sinus infection. A follow-up visit was arranged. 12/04/2024 Urinary incontinence (ICD-10 - R32) She has been to see urology and had the cystoscopy. Apparently there were no significant findings. We have requested the note. She has had no hematuria. 02/21/2024 UTI symptoms (ICD-10 - R39.9) 03/25/2024 Urinary incontinence (ICD-10 - R32) She has been to see urology and had the cystoscopy. Apparently there were no significant findings. We have requested the note. She has had no hematuria. 05/07/2024 Lumbar radiculopathy (ICD-10 - M54.16) She is experiencing a flareup of the pain, likely due to nerve impingement from a disc. An MRI has been ordered and a surgical consultation may be necessary. She is gooing to use heat and rest and ibuprofen at this time. Dexamethasone will be added. If the pain does not improve rapidly. 05/27/2024 Cervical spondylosis (ICD-10 - M47.812) She has chronic pain with range of motion of the neck. There is no radiculopathy. 11/20/2024 Cervical spondylosis (ICD-10 - M47.812) She has chronic pain with range of motion of the neck. There is no radiculopathy. 11/27/2024 Degenerative disc disease at L5-S1 level (ICD-10 - M51.37) She has had several MRIs in the past for ppain like this. She has done nothing she can think of to cause this exacerbation. 12/04/2024 Degenerative disc disease at L5-S1 level (ICD-10 - M51.37) She has had several MRIs in the past for ppain like this. She has done nothing she can think of to cause this exacerbation. 03/25/2024 Cervical spondylosis (ICD-10 - M47.812) She has chronic pain with range of motion of the neck. There is no radiculopathy. 05/07/2024 Spinal stenosis of lumbar region, unspecified whether neurogenic claudication present (ICD-10 - M48.061) She will refrain from heavy lifting. If necessary, she will see surgery. 05/27/2024 Lumbar radiculopathy (ICD-10 - M54.16) She is experiencing a flareup of the pain, likely due to nerve impingement from a disc. An MRI has been ordered and a surgical consultation may be necessary. She is gooing to use heat and rest and ibuprofen at this time. Dexamethasone will be added. If the pain does not improve rapidly. 11/20/2024 Lumbar radiculopathy (ICD-10 - M54.16) She is experiencing a flareup of the pain, likely due to nerve impingement from a disc. An MRI has been ordered and a surgical consultation may be necessary. She is gooing to use heat and rest and ibuprofen at this time. Dexamethasone will be added. If the pain does not improve rapidly. 11/27/2024 Lumbar radiculopathy (ICD-10 - M54.16) She is experiencing a flareup of the pain, likely due to nerve impingement from a disc. An MRI has been ordered and a surgical consultation may be necessary. She is gooing to use heat and rest and ibuprofen at this time. Dexamethasone will be added. If the pain does not improve rapidly. 12/04/2024 Cervical spondylosis (ICD-10 - M47.812) She [...] If the pain does not improve rapidly. 05/07/2024 Primary insomnia (ICD-10 - F51.01) We discussed melatonin. She will continue on current therapy. 05/27/2024 Constipation (ICD-10 - K59.00) 11/20/2024 Spinal stenosis of lumbar region, unspecified whether neurogenic claudication present (ICD-10 - M48.061) She will refrain from heavy lifting. If necessary, she will see surgery. 11/27/2024 Ureterolithiasis (ICD-10 - N20.1) This diagnosis was made in [place] had an episode of renal colic. In recent years she has had no recurrence. She is not aware of any history of hypercalcemia or hyperuricemia. 12/04/2024 Ureterolithiasis (ICD-10 - N20.1) This diagnosis was made in [place] had an episode of renal colic. In recent years she has had no recurrence. She is not aware of any history of hypercalcemia or hyperuricemia. 03/25/2024 Spinal stenosis of lumbar region, unspecified whether neurogenic claudication present (ICD-10 - M48.061) She will refrain from heavy lifting. If necessary, she will see surgery. 05/07/2024 Ureterolithiasis (ICD-10 - N20.1) This diagnosis was made in [place] had an episode of renal colic. In recent years she has had no recurrence. She is not aware of any history of hypercalcemia or hyperuricemia. 05/27/2024 Mural thickening of sigmoid colon (ICD-10 - K63.9) This is a finding on both the ultrasound and CT scan. We have requested a gastroenterology consultation or colonoscopy. She is waiting to hear from them. The rectal examination today was normal. Cystoscopy was brown and guaiac negative. There was significant pain on manipulating the uterus. Colonoscopy seems indicated. He was also referred to SENIOR REACTOR OPERATOR. 11/20/2024 Primary insomnia (ICD-10 - F51.01) We discussed melatonin. She will continue on current therapy. 11/27/2024 Primary insomnia (ICD-10 - F51.01) We discussed melatonin. She will continue on current therapy. 12/04/2024 Tobacco dependence (ICD-10 - F17.200) She has been seen by the gastroenterology consult nontender evaluation is in progress. 03/25/2024 Tobacco dependence (ICD-10 - F17.200) She has been seen by the gastroenterology consult nontender evaluation is in progress. 05/07/2024 Tobacco dependence (ICD-10 - F17.200) She has been seen by the gastroenterology consult nontender evaluation is in progress. 05/27/2024 Tobacco dependence (ICD-10 - F17.200) She has been seen by the gastroenterology consult nontender evaluation is in progress. 11/20/2024 Tobacco dependence (ICD-10 - F17.200) She has been seen by the gastroenterology consult nontender evaluation is in progress. 11/27/2024 Tobacco dependence (ICD-10 - F17.200) She [...] the pain does not improve rapidly. 03/25/2024 Hyperlipidemia (ICD-10 - E78.5) Comprehensive blood work with a fasting lipid profile will be done tomorrow morning. 05/07/2024 Postoperative pain (ICD-10 - G89.18) She was given an additional supply of oxycodone. 05/27/2024 Hyperlipidemia (ICD-10 - E78.5) Comprehensive blood work with a fasting lipid profile will be done tomorrow morning. 11/20/2024 Hyperlipidemia (ICD-10 - E78.5) Comprehensive blood work with a fasting lipid profile will be done tomorrow morning. 03/25/2024 Vitamin D deficiency (ICD-10 - E55.9) Vitamin D supplementation was discussed today. I recommended 1000 units daily. 05/07/2024 Pelvic mass (ICD-10 - R19.00) She is going to see SENIOR REACTOR OPERATOR tomorrow. She says she is scheduled for a biopsy of this mass as an outpatient. 05/27/2024 Adnexal mass (ICD-10 - N94.89) This issue is currently being addressed by SENIOR REACTOR OPERATOR. 05/07/2024 Underweight (ICD-10 - R63.6) She has lost 4 pounds with the surgery and her body mass index is now 19. We have discussed diet and nutrition. Her weight will be monitored carefully. 05/27/2024 Rectal mass (ICD-10 - K62.89) This was seen again on the MRI as well as the CT scan. She has appointment with the surgeon within the next 7 days. Plan Of Treatment Pending Test Test Name Order Date PROFILE, FASTING (COMPREHENSIVE METABOLI C) 11/20/2024 PROFILE, FASTING (COMPREHENSIVE METABOLI C) 11/20/2023 CBC w DIFF 11/20/2024 CBC w DIFF 11/20/2023 URINALYSIS (UA) 02/21/2024 URINE CULTURE 02/21/2024 MRI LUMBAR SPINE NO CONTRAST 07/24/2023 BONE DENSITY DEXA 10/16/2022 MAMMOGRAM DIGITAL BILATERAL SCREEN 10/16 Comprehensive [place]. Panel Fast Lipid Panel 01/01/2025 Lipid Panel 11/20/2023 Lipid Panel 11/20/2024 MM tomosynthesis screening BI 11/20/2023 XR sinus min 3V 11/27/2024 XR hand RT min 3V 11/20/2024 Next Appt Details Provider Name:Paresh Strong, 03/05/2025 11:15:00 AM, [address] [facility] [address], [place], [address], Provider Name:Paresh Strong, 11/24/2025 11:00:00 AM, [address] [place] [address] [address], [place], [address], Insurance Providers Payer Name Payer Address Payer Phone Subscriber Number Group Number Insured Name Patient Relationship to Insured Coverage Start Date Coverage End Date [employer] [address] [address] [place] [address] [id number] Cathie Arguello Self - patient is the insured [place] [address] [place], [place] [id number] [phone] [id number] Cathie Arguello Self - patient is the insured Medical (General) History Medical History History ICD Code Disabled from degenerative disease of th e spine Fibromyalgia Lumbar radiculopathy Cervical spondylosis Lumbar spinal stenosis Urinary incontinence History of pyelonephritis Frequent urinary tract infections Allergic to Augmentin Urinary incontinence Tobacco dependence History of hypertension Insomnia Last menstrual period 2014 History of ureterolithiasis Fractured Second third and fourth finger s Right hand November 2024 Surgical History Surgery Date(Month/Year) Sigmoid Colectomy 04/2024 Last menstrual period 2014 History of colonoscopy [facility]topic , right salpingectomy Bilateral hip surgery Right knee patella reconstruction Facial reconstruction Hospitalization History Reason Date(Month/Year) [facility], laparoscopic res ection of colon 2023
--- OUTSIDE RECORDS SUMMARY | 2025-01-01 13:43 | XMS_ITS | Data Portability ---
Author Organization [place] - [facility], [facility] Address [address] [place] [address] Assessment No assessment recorded. Plan of Treatment [...] available 08:50:11 hepatic function panel, serum 2021 022 SEE Not available 08:50:11 urinalysis complete, reflex [...] Eval and treat - former patient from [facility] (change due to insurance non-PAR) 2020 [email or web address] 3 [facility], [id number], [place], [address], 08:52:57 Procedures None recorded. Surgeries None recorded. Imaging None recorded. Medication Orders ergocalcife rol (vitamin D2) 1,250 mcg (50,000 unit) capsule 2020 [facility], [id number] [address], [address], 09:11:30 potassium chloride ER 20 mEq tablet,exte nded release(par t/cryst) 2020 [facility], [id number] [address], [address], 09:17:27 cefprozil 250 mg tablet 2020 022 messi servin [facility], [id number] [address], [address], 08:20:45 montelukast 10 mg tablet 2020 021 SEE [facility], [id number] [address], [address], 07:34:28 Patient Targets Encounter Date Encounter Id [...] By Organization Details Last Modified Time 06/02/2021 [id number] Complete labs, fasting preferred. Patient is advised to call if she does not receive expected referrals or if unable to complete the testing. Not available 06/03/2021 07:26:29 Answered questions regarding the current plan of treatment. Recommend that patient notify us if she encounters any difficulties completing the planned evaluation. Currently no barriers to medications and/or treatment regimen. [email or web address] Not available 06/03/2021 07:26:11 07/01/2021 [id number] Complete labs, fasting preferred, just prior to [...] pain former provider non-PAR with insurance/ Authorization Ref.#[id number] Eval and treat - former patient from [facility] (change due to insurance non-PAR) Referring Physician: Shima Lees, Family Medicine, Encounter Date: 06/02/2021 Results Created Date Observation Date Name Description Value Unit Range Abnormal Flag Note LastModifiedBy Organization Detail LastModifiedTime 06/02/20 21 06/03/2021 LIPID SCREE N (BASI C LIPID PROFI LE) cholesterol 152 mg/dL <200 Not Available [employer] ([facility]) [address], [place], [address], 06/03/2021 15:35:32 06/02/20 21 06/03/2021 LIPID SCREE N (BASI C LIPID PROFI LE) HDL chol., direct 40 mg/dL >50 low Not Available [employer] ([facility]) [address], [place], [address], 06/03/2021 15:35:32 06/02/20 21 06/03/2021 LIPID SCREE N (BASI C LIPID PROFI LE) triglyceride s 198 mg/dL <150 high Not Available [employer] ([facility]) [address], [place], [address], 06/03/2021 15:35:32 06/02/20 21 06/03/2021 LIPID SCREE N (BASI C LIPID PROFI LE) HDL % of cholesterol 26 % >14 Evalu ation : BELOW AVERA GE RISK Not Available [employer] ([facility]) [address], [place], [address], 06/03/2021 15:35:32 06/02/20 21 06/03/2021 LIPID SCREE N (BASI C LIPID PROFI LE) chol/HDL ratio 3.8 <5.8 Evalu ation : BELOW AVERA GE RISK Not Available [facility] ([facility]) [address], [place], [address], 06/03/2021 15:35:32 06/02/20 21 06/03/2021 LIPID SCREE N (BASI C LIPID PROFI LE) LDL/HDL ratio 1.80 <3.56 Not Available [facility] ([facility]) [address], [place], [address], 06/03/2021 15:35:32 06/02/20 21 06/03/2021 LIPID SCREE N (BASI C LIPID PROFI LE) LDL cholesterol 72 mg/dL <100 Not Available [facility] ([facility]) [address], [place], [address], 06/03/2021 15:35:32 06/02/20 21 06/03/2021 LIPID SCREE N (BASI C LIPID PROFI LE) VLDL, calculated 40 mg/dL 7-32 high Not Available [facility] ([facility]) [address], [place], [address], 06/03/2021 15:35:32 06/02/20 21 06/03/2021 LIPID SCREE N (BASI C LIPID PROFI LE) non-HDL cholesterol 112 mg/dL <130 Not Available [facility] ([facility]) [address], [place], [address], 06/03/2021 15:35:32 06/02/20 21 06/03/2021 CBC W/DIF F, PLATE LET CT. WBC 13.01 x10(3 )/uL 4.00-1 0.10 high Not Available [facility] ([facility]) [address], [place], [address], 06/03/2021 15:35:33 06/02/20 21 06/03/2021 CBC W/DIF F, PLATE LET CT. RBC 3.71 x10(6 )/uL 3.58-5 .19 Not Available [facility] ([facility]) [address], [place], [address], 06/03/2021 15:35:33 06/02/20 21 06/03/2021 CBC W/DIF F, PLATE LET CT. HGB 13.1 g/dL 11.0-1 5.5 Not Available [facility] ([facility]) [address], [place], [address], 06/03/2021 15:35:33 06/02/20 21 06/03/2021 CBC W/DIF F, PLATE LET CT. HCT 36.6 % 31.5-4 4.8 Not Available [facility] ([facility]) [address], [place], [address], 06/03/2021 15:35:33 06/02/20 21 06/03/2021 CBC W/DIF F, PLATE LET CT. MCV 98.7 fL 78.0-9 8.0 high Not Available [facility] ([facility]) [address], [place], [address], 06/03/2021 15:35:33 06/02/20 21 06/03/2021 CBC W/DIF F, PLATE LET CT. MCH 35.3 pg 25.2-3 2.6 high Not Available [facility] ([facility]) [address], [place], [address], 06/03/2021 15:35:33 06/02/20 21 06/03/2021 CBC W/DIF F, PLATE LET CT. MCHC 35.8 g/dL 31.0-3 4.7 high Not Available [facility] ([facility]) [address], [place], [address], 06/03/2021 15:35:33 06/02/20 21 06/03/2021 CBC W/DIF F, PLATE LET CT. RDW 11.5 % 12.0-1 5.5 low Not Available [facility] ([facility]) [address], [place], [address], 06/03/2021 15:35:33 06/02/20 21 06/03/2021 CBC W/DIF F, PLATE LET CT. polys 63.5 % 37.1-7 8.1 Not Available [facility] ([facility]) [address], [place], [address], 06/03/2021 15:35:33 06/02/20 21 06/03/2021 CBC W/DIF F, PLATE LET CT. lymphs 24.8 % 13.7-5 0.9 Not Available [facility] ([facility]) [address], [place], [address], 06/03/2021 15:35:33 06/02/20 21 06/03/2021 CBC W/DIF F, PLATE LET CT. monos 8.6 % 3.0-11 .9 Not Available [facility] ([facility]) [address], [place], [address], 06/03/2021 15:35:33 06/02/20 21 06/03/2021 CBC W/DIF F, PLATE LET CT. eos 2.3 % 0.0-5. 0 Not Available [facility] ([facility]) [address], [place], [address], 06/03/2021 15:35:33 06/02/20 21 06/03/2021 CBC W/DIF F, PLATE LET CT. basos 0.4 % 0.0-1. 0 Not Available [facility] ([facility]) [address], [place], [address], 06/03/2021 15:35:33 06/02/20 21 06/03/2021 CBC W/DIF F, PLATE LET CT. immature granulocytes 0.4 % 0.0-1. 0 Not Available [facility] ([facility]) [address], [place], [address], 06/03/2021 15:35:33 06/02/20 21 06/03/2021 CBC W/DIF F, PLATE LET CT. platelet count 336 x10(3 )/uL 140-42 5 Not Available [facility] ([facility]) [address], [place], [address], 06/03/2021 15:35:33 06/02/20 21 06/03/2021 CBC W/DIF F, PLATE LET CT. MPV 9.4 fL 8.6-12 .1 Not Available [facility] ([facility]) [address], [place], [address], 06/03/2021 15:35:33 06/02/20 21 06/03/2021 HEMOG LOBIN [...] werner hemog lobin level s. Not Available [facility] [address], [place], [address], 06/03/2021 15:35:33 06/02/20 21 06/03/2021 VITAM IN D, 25-HY DROXY , SERUM 25OH, vitamin D 10.3 NG/mL 32.0-1 00.0 low Not Available [facility] ([facility] [address], [place], [address], 06/03/2021 15:35:34 06/02/20 21 06/03/2021 VITAM IN B12/F OLATE folic acid 16.43 NG/mL >5.38 Folic Acid Range Units (ng/m L) Cheryle l >5.38 Borde rline defic ient 3.38- 5.38 Defic ient 0.35- 3.37 Exces sive >24.0 0 Not Available [facility] ([facility]) [address], [place], [address], 06/03/2021 15:35:35 06/02/20 21 06/03/2021 VITAM IN B12/F OLATE vitamin B12 899 pg/mL 211-91 1 Not Available [facility] ([facility]) [address], [place], [address], 06/03/2021 15:35:35 06/02/20 21 06/03/2021 COMPR EHENS MARISOL METAB OLIC PANEL total protein 7.1 g/dL 5.9-8. 4 Not Available [facility] ([facility]) [address], [place], [address], 06/03/2021 15:35:36 06/02/20 21 06/03/2021 COMPR EHENS MARISOL METAB OLIC PANEL albumin 4.5 g/dL 3.5-5. 2 Not Available [facility] ([facility]) [address], [place], [address], 06/03/2021 15:35:36 06/02/20 21 06/03/2021 COMPR EHENS MARISOL METAB OLIC PANEL globulin 2.6 g/dL 1.7-3. 7 Not Available [facility] ([facility]) [address], [place], [address], 06/03/2021 15:35:36 06/02/20 21 06/03/2021 COMPR EHENS MARISOL METAB OLIC PANEL A/G ratio 1.7 ratio 1.1-2. 9 Not Available [facility] ([facility]) [address], [place], [address], 06/03/2021 15:35:36 06/02/20 21 06/03/2021 COMPR EHENS MARISOL METAB OLIC PANEL sodium 135 mmol/ L 136-14 5 low Not Available [facility] ([facility]) [address], [place], [address], 06/03/2021 15:35:36 06/02/20 21 06/03/2021 COMPR EHENS MARISOL METAB OLIC PANEL potassium 3.4 mmol/ L 3.6-5. 6 low Not Available [facility] ([facility]) [address], [place], [address], 06/03/2021 15:35:36 06/02/20 21 06/03/2021 COMPR EHENS MARISOL METAB OLIC PANEL chloride 91 mmol/ L 96-108 low Not Available [facility] ([facility]) [address], [place], [address], 06/03/2021 15:35:36 06/02/20 21 06/03/2021 COMPR EHENS MARISOL METAB OLIC PANEL CO2 28 mmol/ L 22-29 Not Available [facility] ([facility]) [address], [place], [address], 06/03/2021 15:35:36 06/02/20 21 06/03/2021 COMPR EHENS MARISOL METAB OLIC PANEL BUN 3 mg/dL 6-20 low Not Available [facility] ([facility]) [address], [place], [address], 06/03/2021 15:35:36 06/02/20 21 06/03/2021 COMPR EHENS MARISOL METAB OLIC PANEL creatinine 0.39 mg/dL 0.49-1 .02 low Not Available [facility] ([facility]) [address], [place], [address], 06/03/2021 15:35:36 06/02/20 21 06/03/2021 COMPR EHENS MARISOL METAB OLIC PANEL E-GFR 117 mL/mi n >or=60 Not Available [facility] ([facility]) [address], [place], [address], 06/03/2021 15:35:36 06/02/20 21 06/03/2021 COMPR EHENS MARISOL METAB OLIC PANEL E-GFR, 136 mL/mi n >or=60 Not Available [facility] ([facility]) [address], [place], [address], 06/03/2021 15:35:36 06/02/20 21 06/03/2021 COMPR EHENS MARISOL METAB OLIC PANEL BUN/creat ratio 7.7 ratio 10.0-2 8.0 low Not Available [facility] ([facility]) [address], [place], [address], 06/03/2021 15:35:36 06/02/20 21 06/03/2021 COMPR EHENS MARISOL METAB OLIC PANEL calcium 9.9 mg/dL 8.6-10 .4 Not Available [facility] ([facility]) [address], [place], [address], 06/03/2021 15:35:36 06/02/20 21 06/03/2021 COMPR EHENS MARISOL METAB OLIC PANEL bilirubin, total 0.4 mg/dL <1.2 Not Available [facility] ([facility]) [address], [place], [address], 06/03/2021 15:35:36 06/02/20 21 06/03/2021 COMPR EHENS MARISOL METAB OLIC PANEL alk phos 88 U/L 40-156 Not Available [facility] ([facility]) [address], [place], [address], 06/03/2021 15:35:36 06/02/20 21 06/03/2021 COMPR EHENS MARISOL METAB OLIC PANEL AST 14 U/L <32 Not Available [facility] ([facility]) [address], [place], [address], 06/03/2021 15:35:36 06/02/20 21 06/03/2021 COMPR EHENS MARISOL METAB OLIC PANEL ALT 12 U/L <33 Not Available [facility] ([facility]) [address], [place], [address], 06/03/2021 15:35:36 06/02/20 21 06/03/2021 COMPR EHENS MARISOL METAB OLIC PANEL glucose 88 mg/dL 70-99 Not Available [facility] ([facility]) [address], [place], [address], 06/03/2021 15:35:36 06/02/20 21 06/03/2021 T4,FR EE + TSH thyroxine, free (FT4) 1.15 NG/dL 0.84-1 .62 Not Available [facility] ([facility]) [address], [place], [address], 06/03/2021 15:35:36 06/02/20 21 06/03/2021 T4,FR EE + TSH TSH 0.506 uIU/m L 0.282- 4.000 Not Available [facility] ([facility]) [address], [place], [address], 06/03/2021 15:35:36 06/02/20 21 06/03/2021 HEPAT ITIS C ANTIB CIERRA W/ REFLE X RT PCR hep C Ab. (S/co ratio) 0.03 <0.80 Not Available [facility] ([email or web address]) [address], [place], [address], 06/03/2021 15:35:37 06/02/20 21 06/03/2021 HEPAT ITIS C ANTIB CIERRA W/ REFLE X RT PCR hep. C Ab. NON-RE ACTIVE non-re active Not Available [facility] ([facility]) [address], [place], [address], 06/03/2021 15:35:37 06/02/20 21 06/03/2021 URINA LYSIS W/REF ANA ROSA TO CULTU RE specific gravity ur 1.005 1.003- 1.030 Not Available [facility] ([facility]) [address], [place], [address], 06/03/2021 15:35:38 06/02/20 21 06/03/2021 URINA LYSIS W/REF ANA ROSA TO CULTU RE pH urine 6.0 5.0-8. 0 Not Available [facility] ([facility]) [address], [place], [address], 06/03/2021 15:35:38 06/02/20 21 06/03/2021 URINA LYSIS W/REF ANA ROSA TO CULTU RE protein, urine NEGATI VE negati ve Not Available [facility] ([facility]) [address], [place], [address], 06/03/2021 15:35:38 06/02/20 21 06/03/2021 URINA LYSIS W/REF ANA ROSA TO CULTU RE glucose, urine NEGATI VE negati ve Not Available [facility] ([facility]) [address], [place], [address], 06/03/2021 15:35:38 06/02/20 21 06/03/2021 URINA LYSIS W/REF ANA ROSA TO CULTU RE ketone, urine NEGATI VE negati ve Not Available [facility] ([facility]) [address], [place], [address], 06/03/2021 15:35:38 06/02/20 21 06/03/2021 URINA LYSIS W/REF ANA ROSA TO CULTU RE urobilinogen urine 0.2 mg/dL 0.2-1. 0 Not Available [facility] ([facility]) [address], [place], [address], 06/03/2021 15:35:38 06/02/20 21 06/03/2021 URINA LYSIS W/REF ANA ROSA TO CULTU RE bilirubin, urine NEGATI VE negati ve Not Available [facility] ([facility]) [address], [place], [address], 06/03/2021 15:35:38 06/02/20 21 06/03/2021 URINA LYSIS W/REF ANA ROSA TO CULTU RE blood, urine MODERA TE negati ve abnormal Not Available [facility] ([facility]) [address], [place], [address], 06/03/2021 15:35:38 06/02/20 21 06/03/2021 URINA LYSIS W/REF ANA ROSA TO CULTU RE nitrites urine NEGATI VE negati ve Not Available [facility] ([facility]) [address], [place], [address], 06/03/2021 15:35:38 06/02/20 21 06/03/2021 URINA LYSIS W/REF ANA ROSA TO CULTU RE crystals urine NONE none Not Available [facility] ([facility]) [address], [place], [address], 06/03/2021 15:35:38 06/02/20 21 06/03/2021 URINA LYSIS W/REF ANA ROSA TO CULTU RE WBC, urine 0-4 /[hpf ] 0-4 Not Available [facility] ([facility]) [address], [place], [address], 06/03/2021 15:35:38 06/02/20 21 06/03/2021 URINA LYSIS W/REF ANA ROSA TO CULTU RE RBC, urine 2-5 /[hpf ] none seen high Not Available [facility] ([facility]) [address], [place], [address], 06/03/2021 15:35:38 06/02/20 21 06/03/2021 URINA LYSIS W/REF ANA ROSA TO CULTU RE cast, RBC, urine NONE SEEN /[lpf ] 0-1 Not Available [facility] ([facility]) [address], [place], [address], 06/03/2021 15:35:38 06/02/20 21 06/03/2021 URINA LYSIS W/REF ANA ROSA TO CULTU RE cast, hyaline, urine 0-4 /[lpf ] 0-4 Not Available [facility] ([facility]) [address], [place], [address], 06/03/2021 15:35:38 06/02/20 21 06/03/2021 URINA LYSIS W/REF ANA ROSA TO CULTU RE epithelial cells, ur FEW none-f ew Not Available [facility] ([facility]) [address], [place], [address], 06/03/2021 15:35:38 06/02/20 21 06/03/2021 URINA LYSIS W/REF ANA ROSA TO CULTU RE cast, granular, ur NONE SEEN /[lpf ] 0-1 Not Available [facility] ([facility]) [address], [place], [address], 06/03/2021 15:35:38 06/02/20 21 06/03/2021 URINA LYSIS W/REF ANA ROSA TO CULTU RE bacteria, urine NONE none-f ew Not Available [facility] ([facility]) [address], [place], [address], 06/03/2021 15:35:38 06/02/20 21 06/03/2021 URINA LYSIS W/REF ANA ROSA TO CULTU RE crystal amt. urine NONE /[hpf ] none Not Available [facility] ([facility]) [address], [place], [address], 06/03/2021 15:35:38 06/02/20 21 06/03/2021 URINA LYSIS W/REF ANA ROSA TO CULTU RE leukocyte esterase NEGATI VE negati ve Not Available [facility] ([facility]) [address], [place], [address], 06/03/2021 15:35:38 06/02/20 21 06/03/2021 URINA LYSIS W/REF ANA ROSA TO CULTU RE color YELLOW yellow , straw, yovanny Not Available [facility] ([facility]) [address], [place], [address], 06/03/2021 15:35:38 06/02/20 21 06/03/2021 URINA LYSIS W/REF ANA ROSA TO CULTU RE character CLEAR clear Not Available [facility] ([facility]) [address], [place], [address], 06/03/2021 15:35:38 06/02/20 21 06/03/2021 HIV AG/AB [...] hcare Diagn ostic s) Not Available [facility] ([facility]) [address], [place], [address], 06/03/2021 15:35:39 06/07/20 21 05/08/2020 MRI, lumba [...] HEDIS MEASURES MEDICAID completed Andreea Rodriguez MA [facility], [facility] 06/02/2021 13:21:49 0 Colposcopy completed Andreea Rodriguez MA [facility], [facility] 06/02/2021 13:19:04 0 Date of Last Pap Smear completed Andreea Rodriguez MA [facility], [facility] 06/02/2021 13:23:49 0 Most Recent Mammogram completed Andreea Rodriguez MA [facility], [facility] 06/02/2021 13:24:10 0 operation on hip joint completed Andreea Rodriguez MA [facility], [facility] 06/02/2021 13:22:57 8 operative procedure on knee completed Andreea Rodriguez MA [place] - [facility], [facility] 06/02/2021 13:23:08 Imaging Results Imaging Date [...] n nausea Not available Not available 06/02/2021 39208 2 RxNorm not an aller gy - [...] and Address Organization Details Last Updated DateTime 78892.0 4 g 20.1 kg/m2 160.02 cm 98.6 [degF] 18 /min 98 % 98 % 85 /min 113 mm[Hg] 65 mm[Hg] [facility] 13:25:28 Social History Question Answer Notes LastModified by Organizat ion Details LastModified Time Tobacco Smoking Status Current Every Day Smoker Andreea Rodriguez MA null, [facility] 06/02/2021 13:19:15 Do You Have An Advance Directive? No [email or web address] Information n ot available 06/02/2021 What Is Your Level Of Alcohol Consumption? Occasional [email or web address] Information not available 06/02/2021 Do You Wear A Helmet When Biking? No [email or web address] Information not available 06/02/2021 Is Blood Transfusion Acceptable In An Emergency? Yes [email or web address] Information not available 06/02/2021 What Is Your Level Of Caffeine Consumption? Occasional [email or web address] Information not available 06/02/2021 How Much Tobacco Do You Chew? None [email or web address] Information not available 06/02/2021 In The 14 Days Before Symptom Onset, Have You Had Close Contact With A Laboratory-confirm ed COVID-19 While That Case Was Ill? No [email or web address] Information n ot available 06/02/2021 In The 14 Days Before Symptom Onset, Have You Had Close Contact With A Person Who Is Under Investigation For COVID-19 While That Person Was Ill? No [email or web address] Information not available 06/02/2021 Have You Been To An Area Known To Be High Risk For COVID-19? No [email or web address] Information not available 06/02/2021 Are You Currently Employed? No [email or web address] Information not available 06/02/2021 Are You Deaf Or Do You Have Serious Difficulty Hearing? No [email or web address] Information not available 06/02/2021 Which Illicit Or Recreational Drugs Have You Used? Lea [email or web address] Information not available 06/02/2021 Have You Processed Blood Or Body Fluids From An Ebola Virus Disease Patient Without Appropriate PPE? No [email or web address] Information not available 06/02/2021 Do You Reside In Or Have You Traveled To An Area Where Ebola Virus Transmission Is Active? No [email or web address] Information not available 06/02/2021 What Is The Highest Grade Or Level Of School You Have Completed Or The Highest Degree You Have Received? WM04115-4 [email or web address] Information not available 06/02/2021 What Is Your Occupation? Disabled [email or web address] Information not available 06/02/2021 Have There Been Any Changes To Your Family Or Social Situation? No [email or web address] Information no t available 06/02/2021 Are There Any Guns Present In Your Home? No [email or web address] Information not available 06/02/2021 How Many Family Members, Including Yourself, Do You Currently Live With? 1 [email or web address] Information not available 06/02/2021 What Is Your Housing Situation Today? I Have Housing [email or web address] Information not available 06/02/2021 Are You Worried About Losing Your Housing? No [email or web address] Information not available 06/02/2021 What Is The Highest Level Of School That You Have Finished? High School Diploma Or GED [email or web address] Information not available 06/02/2021 What Is Your Current Work Situation? 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 No [email or web address] Information n ot available 06/02/2021 In The Past Year Have You Or Any Of Your Family Members Been Unable To Get CLOTHING When It Was Really Needed? No [email or web address] Information n ot available 06/02/2021 In The Past Year Have You Or Any Of Your Family Members Been Unable To Get FOOD When It Was Really Needed? No [email or web address] Information not available 06/02/2021 In The Past Year Have You Or Any Of Your Family Members Been Unable To Get PHONE When It Was Really Needed? No [email or web address] Information not available 06/02/2021 In The Past Year Have You Or Any Of Your Family Members Been Unable To Get UTILITIES When It Was Really Needed? No [email or web address] Information n ot available 06/02/2021 Has Lack Of Transportation Kept You From Medical Appointments, Meetings, Work, Or From Getting Things Needed For Daily Living? I Choose Not To Answer [email or web address] Information not available 06/02/2021 How Often Do You See Or Talk To People That You Care About And Feel Close To? 1 Or 2 Times A Week [email or web address] Information not available 06/02/2021 How Stressed Are You? Somewhat Information not available 06/02/2021 In The Past Year, Have You Spent More Than 2 Nights In A Row In A Assisted, [facility], [facility], Or Juvenile Correctional Facility? No [email or web address] Information not available 06/02/2021 Do You Feel Physically And Emotionally Safe Where You Currently Live? No [email or web address] Information not available 06/02/2021 In The Past Year, Have You Been Afraid Of Your Partner Or Ex-partner? No [email or web address] Information not available 06/02/2021 What Was The Date Of Your Most Recent Tobacco Screening? 06/02/2021 [email or web address] Information not available 06/02/2021 How Many Children Do You Have? 3 [email or web address] Information not available 06/02/2021 Do You Have Any Pets? No [email or web address] Information not available 06/02/2021 Do You Use Your Seat Belt Or Car Seat Routinely? Yes [email or web address] Information not available 06/02/2021 Are You Sexually Active? No [email or web address] Information not available 06/02/2021 Do You Have Smoke And Carbon Monoxide Detectors In Your Home? Yes [email or web address] Information not available 06/02/2021 At What Age Did You Start Smoking Tobacco? 13 [email or web address] Information not available 06/02/2021 Are You Passively Exposed To Smoke? No [email or web address] Information no t available 06/02/2021 How Much Tobacco Do You Smoke? 1 PPD [email or web address] Information not available 06/02/2021 Do You Use Any Illicit Or Recreational Drugs? No [email or web address] Information not available 06/02/2021 Do You Use Sunscreen Routinely? No [email or web address] Information not available 06/02/2021 How Many Years Have You Smoked Tobacco? 30 [email or web address] Information not available 06/02/2021 Sex: Female Functional Status Question Answer Note LastModified by Organizat ion Details LastModified Time Are you able to care for yourself? Yes [email or web address] Information not available 06/02/2021 What is your exercise level? Occasional [email or web address] Information not available 06/02/2021 Mental Status None recorded. Family History Relationship Description Onset Age of this Age Resolved Age Notes LastModified by Organization Details LastModified Time Mother Diabetes mellitus Not available 06/02 13:23:19 Medical History Condition Response Arthritis Y Fibromyalgia Y Allergies/Hayfever Y Gynecological History Statement/Question Response Abnormal Pap [...] PF 07/13/2020 completed Shima Lees MD [address] [place], [address], [facility] 06/02/2021 14:31:41 COVID-19, mRNA, LNP-S, PF, 30 mcg/0.3 mL dose 05/08/2021 completed Shima Lees MD [address] [place], [address], [facility], [facility] 06/02/2021 14:31:41 Past Encounters Encounter ID Performer Location Encounter Start Date Encounter Closed Date Diagnosis/Indication Diagnosis SNOMED-CT Code Diagnosis ICD10 Code Diagnosis Note [id number] Shima Lees MD [address] [place] [address] 06/02/2021 12:57:44 06/06/2021 02:28:29 Screening for disorder 940913967 Z13.9 Check labs Long-term drug therapy 910432963 Z79.899 Check labs Chronic pain 93585083 G8 9.29 M79.7 M51.36 M50.30 Patient with long-stand ing chronic pain. Prior treatment with chronic opioids but none in the past 6 months. Will assist her with finding a pain management provider who accepts her healthcare plan. Viral screening 08703423 4 Z11.59 Check labs Body mass index 20-24 - normal 341179476 Z68.20 Normal weight by BMI. Immunization advised 310 448635 Z71.9 Recommend vaccine for influenza. Patient declines. [id number] Shima Lees MD [address] [place] [address] 07/01/2021 10:28:30 07/06/2021 19:40:40 Otitis media 30842414 H66.90 Patient c/o ear symptoms not fully [...] f/u with ENT. Vitamin D deficiency 347 61307 E55.9 Low level on labs. Resume supplement s. Recheck for improvemen t. Hypokalemia 99434546 E87 .6 Low level on labs. Resume supplement s. Recheck for improvemen t. Patient in formed - test result 568725184 Z71.2 Reviewed results of recent testing. Answered questions and discussed plans for recommende d follow-up as indicated. Leukocytosis 676126738 D 72.829 Mildly elevated total WBC due to elevated neutrophil s primarily. Unsure if reactionar y from the ear infection at the time. She denies treatment course of steroids. Will see if elevation of blood counts persist on future lab tests. Long-term drug therapy 768001349 Z79.899 Check labs Health Concerns Section Related Observation LastModified by Organization Detai ls LastModified Time None Recorded Concern Status LastModified by Organization Details LastModified Time None Recorded Advance Directives Directive N: Payers Encounter Date Sequence Insurance Name Policy Number Policy Lemus Covered Member ID Lemus Member ID Guarantor Name 06/02/2021 1 [employer] [id number] [employer]ie [employer] [id number] Cathie Filiault 07/01/2021 1 [employer] [id number] Cathie Filiault [id number] Cathie Rijuvenult Notes Date Note Type Note Provider Name and Address Organization Details Recorded Time 06/02/2021 text/html New patient here to establish. Her main medical complaint is chronic back pain and the need for meds for pain. She gives a h/o DDD, cervical and lumbosacral, and fibromyalgia. She has been seen most recently for pain management at [facility]. She says there was discussion of obtaining a new MRI of the cervical spine because she has had worsening of the pain.It has been a while since she has had a Rx for meds for pain. Previously treated with Percocet. Last fill, based on [employer] was 10/11/2020. Patient says she has generally kept up to date with basic preventive health measures and screenings when under the care of her prior providers. Patient lives in [place]. She says that she is unable to continue care with any of her prior providers there because they do not take her insurance. She says that the only providers she can see are in [place]. Currently on abx therapy (amoxicillin) for left ear infection. On day 2 after a change from Augmentin to plain amoxicillin. Otherwise, no Rx meds. Patient brings in a large folder full of prior medical care records. Shima Lees MD [address] [place], [address], [facility], [facility] 06/03/2021 07:37:39 07/01/2021 text/html Patient is [...] post-nasal drainage sometimes. Shima Lees MD [address] [place], [address], [facility] 09/12/2021 08:54:05 OBGyn Episode No OBEpisode recorded.
[2025-01-01 13:57] LABS: Mean Platelet Volume 9.2 fL (9.4-12.3); Platelet Count 255 X10*3/uL (160-400); White Blood Count 9.4 X10*3/uL (4.8-10.8)
[2025-01-01 13:58] LABS: SLIDE REVIEW VERIFIED
== END 2025-01-01 11:26 | disposition home or self-care (01) ==
LOC: HO.10HDL 11:25
PROVIDERS: Visit Provider Internal Medicine Medical Oncology
DX: I10 Essential (primary) hypertension (principal)
CPT/HCPCS: 36415; 80053; 80061; 85025

== ENCOUNTER 2025-04-03 11:23 | Outpatient (AMB) | payer OTHER, SELFPAY ==
--- OUTSIDE RECORDS SUMMARY | 2024-12-04 06:45 | XMS_ITS ---
Author Organization Paresh Strong III, MD Address [address] [address] Care Team Providers Care Director Ship Name Role Phone Paresh Strong Primary Care Provider Allergies Allergen (clinical drug ingredient) Drug/Non Drug Allergy documented on EMR Reaction Allergy Type Onset Date Status amoxicillin / clavulanate Augmentin vomiting Drug Allergy Active Reason For Referral Reason Evaluate and Treat Facial Injury in past to nose, eye, ear and History of surgeries Pain at site of past surgery Diagnosis 1 Atypical facial pain (G50.1) Referral Organization Paresh Strong III, MD Referring Provider First Name Paresh Referring Provider Last Name Tae Referring Provider Speciality Internal M edicine Referred Provider [facility], [facility], [facility] Referred Provider Specialty Otolaryngolo gy General Notes Kamilla Proctor CMA 01/06 10:09:25 AM > I called patient she stated she is aware of this appt with Dr. Olsen 11:00am arrival appt at 11:30am in [place] office [address] [place] [address] Referral Priority Routine Referral Appointment Date 01/20/2025 REASON FOR VISIT Fractured fingers right hand, Underweight, Tobacco dependence, Ureterolithiasis, Primary insomnia, Hypertension Medications Medication SIG (Take, Route, Frequency, Duration) Notes Start Date End Date Status Vitamin D3 25 MCG (1000 UT) TAKE ONE TABLET BY MOUTH EVERY DAY Active Myrbetriq 50 MG TAKE ONE TABLET BY M OUTH EVERY DAY Oral Active Ondansetron 4 MG DISSOLVE ONE TABLET BY MOUTH EVERY 8 HOURS NEEDED FOR NAUSEA AND VOMITING Oral Active Nystatin 954804 UNIT/ML TAKE 5ML BY MOUT H 4 TIMES A DAY FOR 11 DAYS Mouth/Throat Active Oyster Shell Calcium 500 MG TAKE ONE TABLET BY MOUTH TWICE A DAY DIRECTED Active Doxycycline Hyclate 100 MG as directed O rally twice a day for 10 days 12/04/2024 12/14/2024 Active Metoprolol Tartrate 25 MG TAKE ONE HALF TABLET BY MOUTH TWICE DAILY Oral Twice a day Active Ventolin HFA 108 (90 Base) MCG/ACT [...] user Modera te cigarette smoker (10-19 cigs/day) Vital Signs Height 62 in 12/04/2024 Weight 117 lbs 12/04/2024 BMI 21.4 kg/m2 12/04/2024 Encounters Encounter Location Date Provider Diagnosis Paresh Strong III, MD [address] [place] [address] [place] [address] 12/04/2024 Paresh Strong Essential hypertensi on I10 ; Closed displaced fracture of proximal phalanx of right index finger with delayed healing, subsequent encounter S62.610G ; Urinary incontinence R32 ; Degenerative disc disease at L5-S1 level M51.37 ; Cervical spondylosis M47.812 ; Ureterolithiasis N20.1 ; Tobacco dependence F17.200 and Lumbar radiculopathy M54.16 Assessments Encounter Date Diagnosis (ICD Code) Assessment Notes T reatment Notes Treatment Clinical Notes 12/04/2024 Essential hypertension (ICD-10 - I10) Her blood pressure has been loosely controlled recently. No change in her regimen is needed. 12/04/2024 Closed displaced fracture of proximal phalanx of right index finger with delayed healing, subsequent encounter (ICD-10 - S62.610G) She has 3 fractured fingers and will undergo a course of physical therapy under the supervision of the hand surgeon. 12/04/2024 Urinary incontinence (ICD-10 - R32) She has been to see urology and had the cystoscopy. Apparently there were no significant findings. We have requested the note. She has had no hematuria. 12/04/2024 Degenerative disc disease at L5-S1 level (ICD-10 - M51.37) She has had several MRIs in the past for ppain like this. She has done nothing she can think of to cause this exacerbation. 12/04/2024 Cervical spondylosis (ICD-10 - M47.812) She has chronic pain with range of motion of the neck. There is no radiculopathy. 12/04/2024 Ureterolithiasis (ICD-10 - N20.1) This diagnosis was made in [place] had an episode of renal colic. In recent years she has had no recurrence. She is not aware of any history of hypercalcemia or hyperuricemia. 12/04/2024 Tobacco dependence (ICD-10 - F17.200) She has been seen by the gastroenterology consult nontender evaluation is in progress. 12/04/2024 Lumbar radiculopathy (ICD-10 - M54.16) She is experiencing a flareup of the pain, likely due to nerve impingement from a disc. An MRI has been ordered and a surgical consultation may be necessary. She is gooing to use heat and rest and ibuprofen at this time. Dexamethasone will be added. If the pain does not improve rapidly. Plan Of Treatment Medication Medication Name Sig Start Date Stop Date Notes Vitamin D3 25 MCG (1000 UT) TAKE ONE TAB LET BY MOUTH EVERY DAY Myrbetriq 50 MG TAKE ONE TABLET BY M OUTH EVERY DAY Oral Ondansetron 4 MG DISSOLVE ONE TABLET BY MOUTH EVERY 8 HOURS NEEDED FOR NAUSEA AND VOMITING Oral Nystatin 530598 UNIT/ML TAKE 5ML BY MOUT H 4 TIMES A DAY FOR 11 DAYS Mouth/Throat Oyster Shell Calcium 500 MG TAKE ONE TAB LET BY MOUTH TWICE A DAY DIRECTED Doxycycline Hyclate 100 MG as directed O rally twice a day for 10 days 12/04/2024 12/14/2024 Metoprolol Tartrate 25 MG TAKE ONE HALF TABLET BY MOUTH TWICE DAILY Oral Twice a day Ventolin HFA 108 (90 Base) MCG/ACT two puffs Inhalation every 4 hrs for shortness of breath 05/08/2024 Valsartan 40 MG 1/2 tablet Orally Tw ice a day Referrals Referral Date Details 12/04/2024 12/04/2024, Evaluate and Treat Facial Injury in past to nose, eye, ear and History of surgeries Pain at site of past surgery, of [facility], [facility] Next Appt Details Follow Up: 4 Weeks, Reason: OV Provider Name:Paresh Strong, 05/14/2025 11:15:00 AM, [address] [place] [address] [address], [place], [address], Provider Name:Paresh Strong, 11/24/2025 11:00:00 AM, [address] [place] [address] [address], [place], [address], Progress Notes * BIJANCathie CDOB:[birth year] (59 yo F)Acc No.[id number]:12/04/2024 Patient: Cathie HOSKINS Provider: Nata Strong MD :1965 A ge:59 Y S ex:Female Date:12/04/2024 Address:[address] [place] [address] VJ Farida [id number] Subjective: * Chief Complaints: * F ractured fingers right handUnderweightTobacco dependenceUreterolithiasisPrimary insomniaHypertension * HPI: * : This telehealth visit took place over 15 minutes with the patient at home and me in my office. She gave consent for billing. She is receiving physical therapy to try and improve the range of motion of the 3 fractured fingers on her right hand. She has an upcoming visit with Dr. Kalina Waldron, hand surgery. Surgery is not being planned. The fingers are painful when used.He continues to have low back pain as well as neck pain.? She was given an appointment to return to the office to have her blood pressure check. She continues to have insomnia but has had no kidney stones. Telehealth L ocation of provider rendering services: { ...} [address] [address] L ocation of patient: a ddress listed in demographics for today's visit P atient identification confirmed using: Tarah peguero, T elehealth method: T elephone only. Patient not visible to care provider. C onsent: P atient verbally consented to treatment, Patient verbally consented to billing insurance company, Patient informed of any privacy concerns related to method of visit T otal time spent with patient (mins) 1 5 * ROS: G eneral/Constitutional: pain S econd third and fourth fingers right hand, low back pain. C hills d enies. F atigue a dmits. F ever d enies. E NT: Decreased hearing d enies. R espiratory: Cough n on-productive. C ardiovascular: Chest pain with exertion d enies. D yspnea on exertion?denies. S hortness of breath w ith exertion. G astrointestinal: Constipation o ccasional. D ecreased appetite d enies. D iarrhea d enies. H eartburn d enies. N ausea d enies. R ectal bleeding d enies. V omiting d enies. H ematology: bruising d enies. p etechiae d enies. S wollen glands n one have been noted. G enitourinary: Frequent urination d enies. M usculoskeletal: Muscle aches d enies. P ainful joints F ingers of right hand. S ciatica d enies. W eakness d enies. S kin: Itching d enies. R nick d enies. S kin lesion(s)?denies. N eurologic: Difficulty speaking d enies. D izziness d enies.?Headache d enies. L ow back pain t hat is chronic. P sychiatric: Depressed mood d enies. * Medical History: * Surgical History: F acial reconstruction Right knee patella reconstruction Bilateral hip surgery Etopic , right salpingectomy History of colonoscopy Last menstrual period 2014 Sigmoid Colectomy 04/2024 * Hospitalization/Major Diagno stic Procedure: [facility], laparoscopic resection of colon 2023 * Family [...] (10-19 cigs/day) S he was born in [place], [place]. She moved to [place] at the age of 53 and has [...] BY MOUTH TWICE A DAY DIRECTED Nystatin 729319 UNIT/ML Suspension TAKE 5ML BY MOUTH 4 [...] MOUTH TWICE A DAY DIRECTED Taking Nystatin 465283 UNIT/ML Suspension TAKE 5ML BY MOUTH 4 [...] with the patient * Allergies: A ugmentin: vomitingno[Allergies Verified] Objective: * Vitals: H t: 62, Wt: 117, BMI:21.4, Ht-cm: 157.48, Wt-k.07. Assessment: * Assessment: 1. C losed displaced fracture of proximal phalanx of right index finger with delayed healing, subsequent encounter - S62.610G (Primary) N otes :She has 3 fractured fingers and will undergo a course of physical therapy under the supervision of the hand surgeon. 2 . E ssential hypertension - I10 N otes :Her blood pressure has been loosely controlled recently. N o change in her regimen is needed. 3 . U rinary incontinence - R32 N otes :She has been to see urology and had the cystoscopy. Apparently there were no significant findings. We have requested the note. She has had no hematuria. 4 . D egenerative disc disease at L5-S1 level - M51.37 N otes :She has had several MRIs in the past for ppain like this. She has done nothing she can think of to cause this exacerbation. 5 . C ervical spondylosis - M47.812 N otes :She has chronic pain with range of motion of the neck. There is no radiculopathy. 6 . U reterolithiasis - N20.1 N otes :This diagnosis was made in [place] had an episode of renal colic. In recent years she has had no recurrence. She is not aware of any history of hypercalcemia or hyperuricemia. 7 . T obacco dependence - F17.200 N otes :She has been seen by the gastroenterology consult nontender evaluation is in progress. 8 . L umbar radiculopathy - M54.16 N otes :She is experiencing a flareup of the pain, likely due to nerve impingement from a disc. An MRI has been ordered and a surgical consultation may be necessary. She is gooing to use heat and rest and ibuprofen at this time. Dexamethasone will be added. If the pain does not improve rapidly. Plan: * Treatment: 2. O thers Continue Valsartan Tablet, 40 MG, [...] A DAY DIRECTED; C ontinue Nystatin Suspension, 946560 UNIT/ML, TAKE 5ML BY MOUTH 4 TIMES A DAY FOR 11 DAYS, Mouth/Throat; C ontinue Ondansetron Tablet Disintegrating, 4 MG, DISSOLVE ONE TABLET BY MOUTH EVERY 8 HOURS NEEDED FOR NAUSEA AND VOMITING, Oral. ? Referral To:[facility] Otolaryngology Reason:Evaluate and Treat Facial Injury in past to nose, eye, ear and History of surgeries Pain at site of past surgery * Procedure Codes: * Preventive Medicine: Counseling: S moking/Tobacco Use Patient counseled on the dangers of tobacco use and urged to quit. 0 12/04/2024 Patient Lifestyle Goals P atient wants to quit Treatment Goals S et a quit date, Cut down by 1 cigarette a week Barriers S ocial smoker, Stress Self-Management Plan M gar[place] a plan to cut down number of cigarettes over time and set a date to work towards quitting * Follow Up: 4 Weeks (Reason: OV) * Images: * Sign off status: Completed true * Provider: Nata Strong MD Date: 0 12/04/2024 Generated for Sajan orberts/Crystal/Carlaitting on: 0 04/03/2025 11:26 AM EDT History and Physical Notes * HPI (History of Present Illness) Category Sub-Category Detail Notes Telehealth Location of [facility] rendering services:: {...} [address] [place] [id number] Location of patient:: address listed in demographics for today's visit Patient identification confirmed using:: Name, Telehealth method:: Telephone only. Gabby ent not visible to care provider. Consent:: Patient verbally c onsented to treatment, Patient verbally consented to billing insurance company, Patient informed of any privacy concerns related to method of visit Total time spent with patient (mins): 15 Consultation Request Notes Referral Date Referring Provider Referred Provider Not es 12/04/2024 Paresh Strong [facility], of [facility], [facility] Evaluate and Treat Facial Injury in past to nose, eye, ear and History of surgeries Pain at site of past surgery
--- OUTSIDE RECORDS SUMMARY | 2025-04-03 11:27 | XMS_ITS | Data Portability ---
Author Organization [place] - Jean roman, SVPE_CARDIO_CC_CCMOB [address] Address [address] [facility] [address] [place] [address] Care Team Providers Care Extract Mixer Name Role Phone MARA PAL Primary Care [...] in the last 7 days by an [facility] provider? no I did not request that the patient schedule an appointment at the next available time as a result of this encounter. CPT CODES: Telephone with video and/or VPO/Virtual/AmWell /Google Meets Emergency Coverage Options Medicare,Medicaid, Aetna (all plans),UHC (all plans),Avera (all plans)/*Humana (urgent cases only) 90982,GT Est Pt - Hx EPF, MDM St Fwd (10 mins) 52094,GT Est Pt - Hx EPF, MDM Low (15 mins) 38408,GT Est Pt - Hx Detailed, MDM Moderate (25 mins) 92111,GT Est Pt - Hx Comprehensive, MDM High (40 mins) 24485,GT New Pt - Hx PF, MDM St Fwd (10 mins) 13181,GT New Pt - Hx PF, MDM St Fwd (20 mins) 50284,GT New Pt - Hx Detailed, MDM Low (30 mins) 67188,GT New Pt - Hx Detailed, MDM Moderate (45 mins) 42580,GT New Pt - Hx Comprehensive, MDM High (60 mins) Telephone Audio Only --Commercial Payors-- 53482- (5-10 mins) Telephone Eval 30390- (11-20 mins) Telephone Eval 78490- (21+ mins) Telephone Eval Telephone Audio Only --Medicare/Medicai d/C-- G2012- (5-10 mins) Telephone Eval G0071- (5-10 mins) [facility]) Telephone Eval Virtual Provider Office (VPO) AmWell/Audio+Video *Normal(No Emergency Options)* CIGNA and others not emergency coverage 06833- (5-10 mins) Online Digital/Virtual 79249- (11-20 mins) Online Digital/Virtual 26326- (21+ mins) Online Digital/Virtual [email or web address] Not available [...] establish care with new pain management at [facility] and [facility]. 3) Elevated BP without diagnosis of HTN - probable white coat syndrome - will have her monitor at home . BP stable [id number]. She is not currently on any pharmacotherapy [...] and staying asleep - trazadone for sleep Prescription refill for 50 mg at bedtime as [...] ordered today - Time spent for Non Qizb-kh-Oiud :5 minutes - reviewed previous medical records, [...] serum 2020 021 [email or web address] [facility], [address] [place], [address], 10:52:08 CMP, serum or plasma 2020 0[email or web address], [address] [place], [address], 1 10:52:08 TSH + free T4, serum 2020 021 [email or web address] [facility], [address] [place], [address], 1 10:52:09 CBC w/ auto diff 2020 021 [email or web address] [facility], [address] [place], [address], 1 10:52:09 magnesium , serum or plasma 2020 021 [email or web address] [facility], [address] [place], [address], 1 10:52:09 HbA1c (hemoglob in A1c), blood 2020 0[email or web address], [address] [place], [address], 1 10:52:09 culture, urine 2020 021 SEE [facility], [address] [place], [address], 1 01:43:34 urinalysi s, dipstick, auto 2020 021 [email or web address] [facility] (For In-Office Services Only), [address] [place], [address], 1 14:45:58 hepatitis C virus Ab, serum 2020 021 [email or web address], [address] [place], [address], 1 10:52:09 lipid panel, serum 2019 [email or web address] [facility], [address] [place], [address], 1 10:24:51 CBC 2019 [email or web address] [facility], [address] [place], [address], 1 10:24:51 vitamin B12 + folate, serum or blood 2019 [facility], [address] [place], [address], 1 14:38:16 TSH + free T4, serum 2019 [id number] [facility], [address] [place], [address], 1 10:24:50 magnesium , serum or plasma 2019 [id number] [facility], [address] [place], [address], 1 10:24:50 CMP, serum or plasma 2019 [id number] [facility], [address] [place], [address], 1 10:24:50 hepatitis C virus Ab, serum 2019 [id number] [facility], [address] [place], [address], 1 10:24:51 HbA1c (hemoglob in A1c), blood 2019 [id number] [facility], [address] [place], [address], 1 10:24:51 Referral None recorded. Procedures None recorded. Surgeries None recorded. Imaging electroca rdiogram 2019 020 [facility] (For In-Office Services Only), [address] [place], [address], 0 16:25:11 Medication Orders Augmentin 875 mg-125 mg tablet 2020 021 [facility], [address] [place] [address], [address], 1 13:39:56 trazodone 50 mg tablet 2020 021 [facility], [address] [place] [address], [address], 1 14:46:08 Pyridium 200 mg tablet [address] [facility], [address] [place] [address], [address], 1 13:33:41 Macrobid 100 mg capsule 2020 021 [place] [address], [address] [place] [address], [address], 1 13:33:38 Patient TargetsNo targets recorded. Patient Instructions Encounter Date Encounter Id Patient Instructions Last Modified By Organization Details Last Modified Time 08/26/2020 [id number] rest & fluids [email or web address] Not available 08/26/2020 [...] approximately __25 minutes___ with greater than 50% idwy-rn-nkyd counseling time. [email or web address] Not available 08/26/2020 16:39:18 09/01/2020 [id number] smoking cessatio n counseling, greater than 3 [...] approximately __30 minutes___ with greater than 50% woff-ou-ihbi counseling time. [email or web address] Not available 09/01/2020 14:50:58 01/14/2021 [id number] blood in the urine: care instructions [email or web address] [...] because they keep the bladder opening area rotary drier feeder than a sanitary pad, thereby limiting bacterial overgrowth. Extremely effective is avoiding long intervals between urinating. Try to empty the bladder at least every 4 hours during the day while awake, even if the need or urge to void is absent. When feeling the need to empty the bladder, do not try to hold it until a more convenient time or place. [...] approximately _25 minutes____ with greater than 50% afwx-kt-pmgb counseling time. [email or web address] Not available 01/14/2021 14:59:56 05/25/2021 [id number] medication information [email or web address] Not available 05/25/2021 13:46:46 [...] urine culture Name: [place]NER [place] normal [id number] [facility] [id number] #: /A GE/ 1964 55 years Femal e SEX: ORD PHY: Pasko TANMAY riley Vivia n Urine /GI Cultu res & Exams PROCE DURE: Cultu re Urine COLLE CTED: 2019 00:00 EST SOURC E: Ur START ED: 2019 19:35 EST FREE TEXT SOURC E: RECEI JAY DATE/ TIME: 2019 19:35 EST BODY SITE: NA ACCES JENELLE: -20 [id number] ORDER ING PHYSI LATA: Janine riley APRN, Vivia n FI NAL REPOR TS Final Repor t [] Verif ied Date/ Time: 2019 04:13 EST Ureth ral nancy 10,00 0-30, 000 cfu/m L Not Available [facility] [address] [place], [address], 07/15/2020 04:20:28 07/13/20 20 07/13/2020 urina lysis , dipst ick Leukocytes Negati ve Not Available [facility]For [facility] Services Only) [address] [place], [address], 07/13/2020 13:33:47 07/13/20 20 07/13/2020 urina lysis , dipst ick Nitrite negati ve Not Available [facility] (For In-Office Services Only) [address] [place], [address], 07/13/2020 13:33:47 07/13/20 20 07/13/2020 urina lysis , dipst ick Urobilinogen 0.2 Not Available [facility] (For In-Office Services Only) [address] [place], [address], 07/13/2020 13:33:47 07/13/20 20 07/13/2020 urina lysis , dipst ick Protein Negati ve Not Available [facility] (For In-Office Services Only) [address] [place], [address], 07/13/2020 13:33:47 07/13/20 20 07/13/2020 urina lysis , dipst ick pH 6.0 Not Available [facility] (For In-Office Services Only) [address] [place], [address], 07/13/2020 13:33:47 07/13/20 20 07/13/2020 urina lysis , dipst ick Blood Modera te Not Available [facility] (For In-Office Services Only) [address] [place], [address], 07/13/2020 13:33:47 07/13/20 20 07/13/2020 urina lysis , dipst ick Specific [place] 1.010 Not Available [facility] (For In-Office Services Only) [address] [place], [address], 07/13/2020 13:33:47 07/13/20 20 07/13/2020 urina lysis , dipst ick Ketone Negati ve Not Available [facility] (For In-Office Services Only) [address] [place], [address], 07/13/2020 13:33:47 07/13/20 20 07/13/2020 urina lysis , dipst ick Bilirubin Small Not Available [facility] (For In-Office Services Only) [address] [place], [address], 07/13/2020 13:33:47 07/13/20 20 07/13/2020 urina lysis , dipst ick Glucose Negati ve Not Available [facility] (For In-Office Services Only) [address] [place], [address], 07/13/2020 13:33:47 07/13/20 20 07/13/2020 urina lysis , dipst ick Appearance Clear Not Available [facility] (For In-Office Services Only) [address] [place], [address], 07/13/2020 13:33:47 07/13/20 20 07/13/2020 urina lysis , dipst ick Color Yellow Not Available [facility] [address] [place], [address], 07/13/2020 13:33:47 07/22/20 20 07/22/2020 urina lysis , compl ete urine source Random random normal Not Available [facility] [address] [place], [address], 07/22/2020 20:11:58 07/22/20 20 07/22/2020 urina lysis , compl ete urine color Colorl ess yellow normal Not Available [facility] [address] [place], [address], 07/22/2020 20:11:58 07/22/20 20 07/22/2020 urina lysis , compl ete urine clarity Clear clear normal Not Available [facility] [address] [place], [address], 07/22/2020 20:11:58 07/22/20 20 07/22/2020 urina lysis , compl ete urine specific gravity 1.003 1.005- 1.035 low Not Available [facility] [address] [place], [address], 07/22/2020 20:11:58 07/22/20 20 07/22/2020 urina lysis , compl ete urine pH 5.0 5.0-8. 0 normal Not Available [facility] [address] [place], [address], 07/22/2020 20:11:58 07/22/20 20 07/22/2020 urina lysis , compl ete urine protein Negati ve mg/dL negati ve normal Not Available [facility] [address] [place], [address], 07/22/2020 20:11:58 07/22/20 20 07/22/2020 urina lysis , compl ete urine glucose Normal (<30) mg/dL normal (<30) normal Not Available [facility] [address], [address], 07/22/2020 20:11:58 07/22/20 20 07/22/2020 urina lysis , compl ete urine ketones Negati ve mg/dL negati ve normal Not Available [facility] [address], [address], 07/22/2020 20:11:58 07/22/20 20 07/22/2020 urina lysis , compl ete urine bilirubin Negati ve mg/dL negati ve normal Not Available [facility] [address], [address], 07/22/2020 20:11:58 07/22/20 20 07/22/2020 urina lysis , compl ete urine blood 0.1 mg/dL negati ve abnormal Not Available [facility] [address], [address], 07/22/2020 20:11:58 07/22/20 20 07/22/2020 urina lysis , compl ete urine nitrite Negati ve negati ve normal Not Available [facility] [address], [address], 07/22/2020 20:11:58 07/22/20 20 07/22/2020 urina lysis , compl ete urine urobilinogen Normal (<2.0) mg/dL normal (<2.0) normal Not Available [facility] [address], [address], 07/22/2020 20:11:58 07/22/20 20 07/22/2020 urina lysis , compl ete urine leukocyte esterase Negati ve zz negati ve normal Not Available [facility] [address], [address], 07/22/2020 20:11:58 07/22/20 20 07/22/2020 urina lysis , compl ete urine white blood cells <1 per_h pf 0-5 normal Not Available [facility] [address], [address], 07/22/2020 20:11:58 07/22/20 20 07/22/2020 urina lysis , compl ete urine red blood cells <1 per_h pf 0-5 normal Not Available [facility] [address], [address], 07/22/2020 20:11:58 07/22/20 20 07/22/2020 urina lysis , compl ete squamous epithelial <1 per_h pf 0-5 normal Not Available [facility] [address], [address], 07/22/2020 20:11:58 08/24/20 20 08/24/2020 nonin vasiv [...] of 10,00 0 indiv idual s at [facility] risk for color ectal cance r who were scree gab with both Colog uard and colon oscop y. (Bakari Garcia et al, N Engl J Med 2014; 370(1 4):12 86-12 97) The gabriele l value (refe rence range ) for this assay is negat malini. COLOG UARD RE-SC REEHERNAN NG RECOM MENDA TION: Perio dic routi ne color ectal cance r scree azam is an impor tant part of preve ntive healt hcare for asymp tomat ic perso ns at [facility] risk for color ectal cance r. [...] can Cance r Socie ty; [upda christiano 2015Jan 01]. https ://bekah w.can cer.o rg/ca ncer/ colon -rect al-ca ncer/ detec tion- diagn osis- stagi ng/ac s-rec ommen datio ns.ht ml. Acces sed Augus t 2017; Carson YANG, Anabel martínez CR, Osmel BUSTOS, Color ectal Cance r Scree azam: Recom menda tions for Physi cians and Patie nts from the [place] Multi -Soci ety Task Force on Color ectal Cance r Scree azam, Am Luis Enrique callejas y 2017; 112:1 016-1 030. TEST TYPE: [place] site algor ithmi c grant sis of stool DNA-b ioubaldo kerjess with hemog lobin immun oassa y. Quant [...] years or older , who are at [facility] sk for color ectal cance r (CRC) [...] , singl e point in time) of [facility] sk adult s aged 50-84 . Colog uard perfo rmanc e in patie nts ages 45 to 49 years was estim ated by carri ames grant sis of near- age group s. Colog uard perfo rmanc e data in a 10,00 0 patie nt pivot al study using colon oscop y as the refer ence tulio d can be acces sed at the [facility] locat ion: www.e xactl abs.c om/re jasmina . Addit ional descr iptio n of the Colog uard test proce ss, warni ngs and preca ution s can be found at www.c marck [address] st.tn m. Rx only. Not Available [facility] (Cologuard Orders Only) [address], [place], [address], 08/27/2020 08:55:53 01/15/2001/16/2021 cultu re, urine urine culture Name: [place] [id number] [facility] [id number] #: /A GE/ 1964 55 years Femal e SEX: ORD PHY: Janine riley APRN, Vivia n Urine /GI Cultu res & Exams PROCE DURE: Cultu re Urine COLLE CTED: 00:00 EDT SOURC E: URINE START ED: 20:11 EDT FREE TEXT SOURC E: RECEI JAY DATE/ TIME: 20:11 EDT BODY SITE: ACCES JENELLE: [id number] ORDER ING PHYSI LATA: Janine riley APRN, Vivia n FI NAL REPOR TS Final Repor t [] Verif ied Date/ Time: 01:26 EDT Ureth ral nancy 1,000 -10,0 00 cfu/m L Not Available [facility] [address] [place], [address], 01/16/2021 01:43:34 01/15/20 21 01/14/2021 urina lysis , dipst ick, auto Leukocytes Negati ve Not Available [facility] (For In-Office Services Only) [address] [place], [address], 01/14/2021 14:39:51 01/15/20 21 01/14/2021 urina lysis , dipst ick, auto Nitrate negati ve Not Available [facility] (For In-Office Services Only) [address] [place], [address], 01/14/2021 14:39:51 01/15/20 21 01/14/2021 urina lysis , dipst ick, auto Urobilinogen 0.2mg/ dL Not Available [facility] (For In-Office Services Only) [address] [place], [address], 01/14/2021 14:39:51 01/15/20 21 01/14/2021 urina lysis , dipst ick, auto Specific [place] 1.005 Not Available [facility] (For In-Office Services Only) [address] [place], [address], 01/14/2021 14:39:51 01/15/20 21 01/14/2021 urina lysis , dipst ick, auto Ketone Negati ve Not Available [facility] (For In-Office Services Only) [address] [place], [address], 01/14/2021 14:39:51 01/15/20 21 01/14/2021 urina lysis , dipst ick, auto Blood Non-He molyze d: Modera te Not Available [facility] (For In-Office Services Only) [address] [place], [address], 01/14/2021 14:39:51 01/15/20 21 01/14/2021 urina lysis , dipst ick, auto pH 5.5 Not Available [facility] (For In-Office Services Only) [address] [place], [address], 01/14/2021 14:39:51 01/15/20 21 01/14/2021 urina lysis , dipst ick, auto Protein Negati ve Not Available [facility] (For In-Office Services Only) [address] [place], [address], 01/14/2021 14:39:51 01/15/20 21 01/14/2021 urina lysis , dipst ick, auto Bilirubin Negati ve Not Available [facility] (For In-Office Services Only) [address] [place], [address], 01/14/2021 14:39:51 01/15/20 21 01/14/2021 urina lysis , dipst ick, auto Glucose Negati ve Not Available [facility] (For In-Office Services Only) [address] [place], [address], 01/14/2021 14:39:51 01/15/20 21 01/14/2021 urina lysis , dipst ick, auto Appearance Clear Not Available [facility] (For In-Office Services Only) [address] [place], [address], 01/14/2021 14:39:51 01/15/20 21 01/14/2021 urina lysis , dipst ick, auto Color Yellow Not Available [place] [facility] Orders (For In-Office Services Only) [address] [place], [address], 01/14/2021 14:39:51 09/01/20 20 elect porsha trangr am No observ ation record ed. Not Available 2019 16:25:36 09/14/19 21 05/30/2019 MAMMO , scree azam, digit al, bilat eral No observ ation record ed. Not Available 2020 11:02:53 Result Notes None recorded. Problems Name Problem SNOMED Code Status Onset Date Resolution Date Notes Provider Name and Address Organization Details Recorded Time Bacteria l urinary infectio n 343384925 Completed 201909/12/2020 [facility] :ER visit for gram-neg ative e-coli UTI; hyperkal emia; severe dehydrat ion. She was treated with ciproflo xacin Mara Pal, TANMAY [address], [place], [address] , [facility] 17:35:33 Health educatio n given 533810361 Active 2019 Mara Pal APRN [address], [place], [address] , [facility] 0 20:52:43 Tobacco dependen ce syndrome 10458473 Active 2019 Mara Radha TANMAY Pal [address], [place], [address] , [facility] 0 20:48:41 Chronic pain syndrome 292844838 Active [address] [facility] - has to change to [facility] d/t insuranc e. H/O DDD Mara Garcia Citlaly, HOT PRESS OPERATOR [address], [place], [address] , [facility] 0 20:49:45 Degenera tion of interver tebral disc 48072363 Active 2019 Mara Radha TANMAY Pal [address], [place], [address] , [facility] 0 20:49:58 Divertic ular disease 066589366 Active 2019 h/o divertic ulosis Marasalo Pal APRN [address], [place], [address] , [facility] 0 20:50:21 Fibromya lgia 251315942 Active 2019 Marasalo Pal APRN [address], [place], [address] , [facility] 0 15:59:05 Degenera tion of lumbar interver tebral disc 44388324 Active 2019 Patient has received cortison e shots to cervical and lumbar spine Mara Pal APRN [address], [place], [address] , [facility] 0 16:00:24 Degenera tion of cervical interver tebral disc 25831022 Active 2019 Patient has received cortison e shots to the cervical and lumbar spine Mara Pal HOT PRESS OPERATOR [address], [place], [address] , [facility] 0 16:00:34 Bilatera l bursitis of hips [id number] 852503 Active 2019 Mara Garcia Citlaly, HOT PRESS OPERATOR [address], [place], [address] , [facility] 0 15:59:43 Paresthe tre 05548534 Active 2019 Mara Radha Citlaly, HOT PRESS OPERATOR [address], [place], [address] , [facility] 0 16:37:41 Insomnia 847115727 Active 2020 Mara Radha Citlaly, HOT PRESS OPERATOR [address], [facility] [place], [address] , [facility] 1 14:44:45 Arthriti s 9208866 Active 2020 Mara Radha Citlaly, HOT PRESS OPERATOR [address], [facility] [place], [address] , [facility] 1 16:05:38 Essentia l hyperten jenelle 47894592 Active 2020 Mara Radha Citlaly, HOT PRESS OPERATOR [address], [facility] [place], [address] , [facility] 1 16:06:06 Chronic depressi on 308707447 Active 2020 Mara Radha Citlaly, HOT PRESS OPERATOR [address], [place], [address] , [facility] 1 16:06:31 Generali zed anxiety disorder 56576558 Active 2020 Mara Radha Citlaly, HOT PRESS OPERATOR [address], [place], [address] , [place] [facility] [place] [facility] [place] 1 16:06:44 [facility] emia [id number] Completed 202001/18/2021 Mara Garcia Citlaly, HOT PRESS OPERATOR [address], [place], [address] , [place] [facility] [place] [facility] [place] 1 16:07:01 Spondylo listhesi s 728192827 Active 2020 L4-L5 level Mara Garcia Citlaly, HOT PRESS OPERATOR [address], [place], [address] , [place] [facility] [place] [facility] [place] 1 16:08:49 Lumbosac ral spondylo sis without myelopat hy 03393640 Active 2020 Mara Garcia Citlaly, HOT PRESS OPERATOR [address], [place], [address] , [place] [facility] [place] [place] 1 16:09:00 Primary insomnia 4558740 Active 2020 Mara Garcia Citlaly, HOT PRESS OPERATOR [address], [place], [address] , [place] [facility] [place] 1 16:09:22 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 Procedures Surgical History Date Name Laterality Status Provider Name and Address Organization Details Recorded Time 1 [facility] completed Mara Pal APRN [address], [place], [address], [facility] [facility] 05/25/2021 13:47:00 1 [facility] completed Mara Pal APRN [address], [place], [address], [facility] 01/14/2021 14:59:46 1 [facility] cancelled Liliane Vasquez [place] [facility] 09/07/2020 11:21:53 0 [facility] completed Liliane Vasquez [place] [facility] 08/27/2020 16:02:41 0 [facility] completed Liliane Vasquez [place] [facility] 08/19/2020 14:12:44 0 [facility] completed Liliane Vasquez [place] [facility] 07/09/2020 12:23:19 9 Date of Last Pap Smear completed Mara Pal APRN [address], [place], [address], [facility] 2020 16:05:21 6 Hip Surgery completed Mara Pal APRN [address], [place], [address], [facility] 01/18/2021 16:07:16 9 Knee Surgery completed Mara Pal APRN [address], [place], [address], [facility] 01/18/2021 16:08:08 repair of nose completed Cass Vega [facility] 07/12/2020 14:11:03 Imaging Results None recorded. Procedure Notes None recorded. Medical Equipment None Reported. Medications Name Sig Start Date Stop Date Status Note LastModified by Organization Details LastModified Time cyclobenzap rine 10 mg tablet TAKE 1 TABLET BY MOUTH TWICE DAILY 1 2 HOURS BEFORE BEDTIME 09/15 /2021 completed Not Available Not Available Not Available [...] lable Vitals Date Recorded Body height Body mass index (BMI) Body weight Heart rate Respiratory rate Oxygen saturation Oxygen saturation in Arterial blood by Pulse oximetry Body temperature Pain severity - 0-10 verbal numeric rating [Score] - Reported Systolic And Diastolic Provider Name and Address Organization Details Last Updated DateTime 162.56 cm 19.8 kg/m2 17280.8 2 g 90 /min 16 /min 97 % 97 % 97.5 [degF] 8 142/88 mm[Hg] [facility] 1 14:30:53 Date Recorded Body height Body mass index (BMI) Body weight Heart rate Respiratory rate Oxygen saturation Oxygen saturation in Arterial blood by Pulse oximetry Body temperature Pain severity - 0-10 verbal numeric rating [Score] - Reported Systolic And Diastolic Provider Name and Address Organization Details Last Updated DateTime 162.56 cm 19.1 kg/m2 19543.1 5 g 99 /min 16 /min 97 % 97 % 97.3 [degF] 4 143/96 mm[Hg] [facility] 13:32:23 Date Recorded Body height Body temperature Provider N marielena and Address Organization Details Last Updated DateTime 07/22/2020 162.56 cm 97.9 [degF] [facility] 07/22/2020 14:05:02 Date Recorded Body height Body mass index (BMI) Body weight Pain severity - 0-10 verbal numeric rating [Score] - Reported Heart rate Oxygen saturation Oxygen saturation in Arterial blood by Pulse oximetry Systolic And Diastolic Provider Name and Address Organization Details Last Updated DateTime 0 162.56 cm 20.1 kg/m2 38556.3 1 g 5 101 /min 97 % 97 % 128/92 mm[Hg] Cass Vega [facility] 0 11:14:46 Date Recorded Body height Body temperature Body mass index (BMI) Body weight Heart rate Respiratory rate Oxygen saturation Oxygen saturation in Arterial blood by Pulse oximetry Pain severity - 0-10 verbal numeric rating [Score] - Reported Systolic And Diastolic Provider Name and Address Organization Details Last Updated DateTime 0 162.56 cm 97 [degF] 20.6 kg/m2 17064.0 8 g 99 /min 16 /min 95 % 95 % 7 134/85 mm[Hg] Cassmindy Vega [facility] 0 14:35:12 Social History Question Answer Notes LastModified by [employer] ion Details LastModified Time Tobacco Smoking Status Current Every Day Smoker Cass Vega [facility] 07/12/2020 14:06:12 Do You Have An Advance Directive? No Information not available 07/12/2020 How Many Years [...] No Information not available 05/25/2021 Are You Deaf Or Do You Have Serious Difficulty Hearing? No Information not available 07/12/2020 Which Illicit Or Recreational Drugs Have You Used? MARIJUANA USER Information not available 01/14/2021 Do You Reside In Or Have You Traveled To An Area Where Ebola Virus Transmission Is Active? No Information not available 05/25/2021 How Hard Is It For You To Pay For The Very Basics Like Food, Housing, Medical Care, And Heating? [id number] Information not available 07/12/2020 Hard Of Hearing [...] In Home Yes Information not available 07/12/2020 How Much Tobacco Do You Smoke? 1 PPW Information not available 07/12/2020 General Stress Level High Information not available 07/12/2020 Do You Use Sunscreen Routinely? Yes Information not available 01/14/2021 How Many Years Have You Smoked Tobacco? 30 Information not available 07/12/2020 Do You Have Difficulty Walking Or Climbing Stairs? No Information not available 07/12/2020 Sex: Unknown Functional Status Question Answer Note LastModified by Organizat ion Details LastModified Time What is your level of alcohol consumption? Occasional Information not available 07/12/2020 Do you or have you ever used smokeless tobacco? Never used smokeless tobacco Information not available 01/14/2021 Are you currently employed? No Information not available 01/14/2021 Do you have transportation difficulties? No Information not available 05/25/2021 Do you have difficulty doing errands alone? No Information not available 07/12/2020 Are you able to care for yourself independently? Yes Information not available 01/14/2021 Do you have difficulty dressing, bathing, grooming, or toileting? No Information not available 07/12/2020 Do you or have you ever used e-cigarettes or vape? Never used electronic cigarettes Information not available 01/14/2021 Mental Status Question Answer Note LastModified by Organizat ion Details LastModified Time Do you feel stressed (tense, restless, nervous, or anxious, or unable to sleep at night)? [id number] Information not available 01/14/2021 Do you have difficulty concentrating, remembering or making decisions? Yes Information no t available 07/12/2020 Family History Relationship Description Onset Age of this Age Resolved Age Notes LastModified by Organization Details LastModified Time Mother Diabetes mellitus Not available 2019 14:05:30 Paternal Grandmother Diabetes mellitus [email or web address] Not available 07/14 16:00:45 Medical History No medical history recorded. Gynecological History Statement/Question Response (DO NOT USE) Date and Result of Last Nohemi mogram 06/18/2019 [facility]. BI-RADS 1 - negative. Annual Mammagraphy recommended Flow Moderate Date of LMP 09/10/2011 Frequency of Cycle (Q days) 5 On BCP's at Conception? N Menses Monthly N Date of Last Pap Smear 05/09/2019 Duration of Flow (days) 5 Age at Menarche 12 LMP Approximate Location/facility name of mammogram [facility] Obstetrics History GPAL:G 3 P 0 0 0 3 Type Value Living 3 Total 3 Immunizations Vaccine Type Date Status Note Provider Nam e and Address Organization Details Recorded Time COVID-19, mRNA, LNP-S, PF, 30 mcg/0.3 mL dose 05/08/2021 completed Cass Vega [facility] 05/25/2021 13:35:57 Influenza, split virus, quadrivalent, PF 07/13/2020 completed Mara Pal, HOT PRESS OPERATOR [address], [place], [address], [facility] 07/18/2020 17:11:54 Past Encounters Encounter ID Performer Location Encounter Start Date Encounter Closed Date Diagnosis/Indication Diagnosis SNOMED-CT Code Diagnosis ICD10 Code Diagnosis Note [id number] Hannah Pablo, SVPE_PRIM ARY_FERNA NDINA [address] [place] [address] 07/12/2020 13:38:18 07/12/2020 14:54:47 Depression screening 293723033 Z13.31 Health edu cation given 182298154 Z71.9 Reviewed careplan with patient/ca regiver. Changes made where necessary, discussed obstacles and limitation s. Normal bod y mass index 44289237 Z68.20 BMO =20.3 Dysuria 73829286 R30.0 Patient was not able to give sufficient sample - will advise her to give urine sample tomorrow Low back pain 255778308 M54.5 advised patient to push fluids and take meds as directed. Screening for malignant neoplasm of colon 537223477 Z12.11 USPSTF recommends FIT -DNA test every 3 years Chronic back pain 094470 002 M54.9 Referral to [facility] - see patient order group - Dr. Mary Pablo ordering provider d/t insurance Mixed anxi ety and depressive disorder 530130021 F41.8 ANN-7 =, PHQ-9 =09/05. Denies HI/SI. [...] Elevated blood-pressure reading without diagnosis of hypertension 456513629 R03.0 Recheck BP 138/82. Continue to monitor [id number] Hannah Pablo, DO SVPE_PRIM SUHA_JILLIAN NDINA [address] [place] [address] 07/13/2020 13:28:39 07/13/2020 14:21:43 Administration of influenza vaccine 77194989 Z23 FLu vaccine administer ed without adverse effects. Patient tolerated well. Dysuria 20152349 R30.9 Nurse visit on 07/13/2020 - u/a with moderate blood, will notify patient - advise that she will need urine cx - recently treated for e-coli UTI [id number] Hannah Pablo, DO SVPE_PRIM ARY_NICHOLENA NDINA [address] [place] [address] 07/22/2020 13:57:28 07/22/2020 14:10:53 [id number] Hannah Pablo, DO SVPE_PRIM ARY_NICHOLENA NDINA [address] [place] [address] 08/26/2020 11:08:28 08/26/2020 11:55:55 Tobacco dependence syndrome 23699504 F17.200 Degenerati on of cervical intervertebral disc 94820227 M50.30 see above. managed by [facility] Degenerati on of lumbar intervertebral disc 58367118 M51.36 see above. managed by [facility] spine and pain Depression screening 171 093882 Z13.31 PHQ-2=0/6 Health edu cation given 298505019 Z71.9 Reviewed careplan with patient/ca regiver. Changes made where necessary, discussed obstacles and limitation s. Normal bod y mass index 35208865 Z68.20 BMO =20.1 Dysuria 98721886 R30.0 resolved Low back pain 999326843 M54.5 advised patient to push fluids and take meds as directed. Screening for malignant neoplasm of colon 726673198 Z12.11 USPSTF recommends FIT -DNA test every 3 years Chronic back pain 923626 002 M54.9 Referral to [facility] - see patient order group - Dr. Mary Pablo ordering provider d/t insurance Mixed anxi ety and depressive disorder 476917084 F41.8 [facility] - ANN-7 =, PHQ-9 =09/05. Denies HI/SI. We discussed pharmacoth erapy options - unfortunat mohan d/t patient being on chronic opioid therapy she is limited to medication s due to interactio ns . Trial of hydroxyzin e not effective. Declines Psychiatry and referral at this time Reports she i smanaging symptoms Safety education 5302850 04 Z71.9 Paresthesia 56598974 R20 .2 see above [id number] Hannah Pablo, DO SVPE_PRIM SUHA_JILLIAN NDINA [address] [place] [address] 09/01/2020 14:28:32 09/01/2020 15:04:12 Paresthesia 48056663 R20.2 see above Tobacco de pendence syndrome 06558463 F17.200 3-10 minutes spent counsellin g on [...] and support. Normal bod y mass index 75183783 Z68.20 BMO =20.1 Degenerati on of cervical intervertebral disc 77894431 M50.30 see above. managed by [facility] Degenerati on of lumbar intervertebral disc 51033192 M51.36 see above. managed by [facility] spine and pain Depression screening 171 717115 Z13.31 PHQ-2=12/ [address] [facility] cation given 701863524 Z71.9 Reviewed careplan with patient/ca regiver. Changes made where necessary, discussed obstacles and limitation s. Dysuria 01650321 R30.0 resolved- repeat urine cx neg Low back pain 676358868 M54.5 advised patient to push fluids and take meds as directed. Screening for malignant neoplasm of colon 432128616 Z12.11 USPSTF recommends FIT -DNA test every 3 years Chronic back pain 838423 002 M54.9 Referral to [facility] - see patient order group - Dr. Mary Pablo ordering provider d/t insurance Mixed anxi ety and depressive disorder 563062030 F41.8 [facility] - ANN-7 =, PHQ-9 =09/05. Denies HI/SI. We discussed pharmacoth erapy options - unfortunat mohan d/t patient being on chronic opioid therapy she is limited to medication s due to interactio ns . Trial of hydroxyzin e not effective. Declines Psychiatry and referral at this time Reports she i smanaging symptoms Safety education 3516444 04 Z71.9 Diabetes m ellitus screening 646542047 Z13.1 scr diabetes Anemia screening 5932896 07 Z13.0 scr anemia Hepatitis C screening 41 7491601 Z11.59 scr hep c Hyperlipid emia screening 405588857 Z13.220 scr lipi [id number] Hannah Pablo, DO SVPE_PRIM SUHA_JILLIAN NDINA [address] [place] [address] 01/14/2021 14:19:54 01/14/2021 15:01:42 Increased frequency of urination 422578886 R35.0 see above Tobacco de pendence syndrome 48064311 F17.200 3-10 minutes spent counsellin g on [...] and support. Normal bod y mass index 36272332 Z68.20 BMO =20.1 Degenerati on of cervical intervertebral disc 53582312 M50.30 see above. managed by [facility] Degenerati on of lumbar intervertebral disc 85460575 M51.36 see above. managed by [facility] spine and pain Depression screening 171 890373 Z13.31 PHQ-2=[address] [facility] edu cation given 008430111 Z71.9 Reviewed careplan with patient/ca regiver. Changes made where necessary, discussed obstacles and limitation s. Dysuria 94382442 R30.0 see aboveRevie wed new medication with patient including name, indication , dosage, frequency, adverse effects, contraindi cations/ca utions, safety/ins tructions, and special instructio ns. Patient verbalized understand ing. Low back pain 950674341 M54.5 advised patient to push fluids and take meds as directed. Chronic back pain 200054 002 M54.9 Referral to [facility] - see patient order group - Dr. Mary Pablo ordering provider d/t insurance Mixed anxi ety and depressive disorder 430076672 F41.8 [facility] - ANN-7 =13/21, PHQ-9 =09/05. Denies HI/SI. We discussed pharmacoth erapy options - unfortunat mohan d/t patient being on chronic opioid therapy she is limited to medication s due to interactio ns . Trial of hydroxyzin e not effective. Declines Psychiatry and referral at this time Reports she i smanaging symptoms Hyperlipid emia screening 763686656 Z13.220 scr lipi Anemia screening 5024519 07 Z13.0 scr anemia Thyroid di sorder screening 295811430 Z13.29 Diabetes m ellitus screening 426920668 Z13.1 scr diabetes Hepatitis C screening 41 6816519 Z11.59 scr hep c Paresthesia 41166432 R20 .2 see above Insomnia 813502350 G47.0 0 Reviewed new medication with patient including name, indication , dosage, frequency, adverse effects, contraindi cations/ca utions, safety/ins tructions, and special instructio ns. Patient verbalized understand ing. Microscopic hematuria 19 4734216 R31.29 Urinalysis dipstick in clinic on 07/13/2020 with moderate blood. Urine culture on 07/13/2020 - for UTI. Advised patient to repeat urine complete to be done at [facility] ed. New medica tion commenced 358030012 Z71.89 New medication started or change in medication discussed. Reviewed indication s, possible drug interactio ns, side effects and indicators to stop. Patient and/or caregiver understand s. [id number] Hannah Pablo, DO SVPE_PRIM SUHA_NICHOLECARLO NDINA [address] [place] [address] 05/25/2021 13:22:37 05/25/2021 14:27:58 Body mass index less than 20 968601511 Z68.1 Acute left otitis media 982119806 H66.92 New medica tion commenced 483645845 Z71.89 New medication started or change in medication discussed. Reviewed indication s, possible drug interactio ns, side effects and indicators to stop. Patient and/or caregiver understand s. Health Concerns Section Related Observation LastModified by Organization Detai ls LastModified Time None Recorded Concern Status LastModified by Organization Details LastModified Time None Recorded Advance Directives Directive N: Payers Insurance Date Sequence Insurance Name Policy Number Policy Lemus Covered Member ID Lemus Member ID Guarantor Name 05/24/2021 1 [facility] (MEDICAID REPLACEMENT - HMO) Broderick Arguello [id number] Broderick Arguello 10/14/2020 1 [facility] (MEDICAID REPLACEMENT - HMO) TATA Arguello [id number] Broderick Arguello Notes Date Note Type Note Provider Name and Address Organization Details Recorded Time 08/26/2020 text/html Patient acknowledged, consented, and participated in this telephone - audio and video visit which was conducted using secure real time audio and video. Patient co-pay amounts may apply to virtual services when coverage is available per your payor. If coverage is not available, patient assumes responsibility for payment. Yes HPI: Patient acknowledged consented and participated in [...] on 08/24/2020. New Patient visit on 07/12/2020:Specialists: [facility] : Dr. Jaime SANTO 07/09/2020 Needs to change to [facility] due to insurance - requesting referral Review of [facility] records. Last ER visit on 05/27/2020: Patient [...] 1) chronic pain on chronic narcotic therapy Oxycodone 7.[address] Luna pain [...] right knee 2) bilateral hip surgery in [place] due to bursitis 3) fractures facial as a child from playground accident requiring surgery 4) tubal removed FH: Diabetes - mother Last CPE: reports has been within a year Last PAP: approx 1 year ago +yeast infection otherwise normal Last Mammogram: Last mammogram at [facility], [place] this year - normal Last Colonoscopy: has not had colonoscopy - had one in [place] DEXA: has not had one Immunizations needed: Flu vaccine Social History: Has BF with esophageal Cancer 38 yo, 25 yo , 23 yo, 10 grandparents Living in [place] - with Kyle significant other On disability - SSI Education: some college Enjoys gardening Moved 2 yrs ago [facility] Mara Pal, HOT PRESS OPERATOR [address], [place], [address], [place] [facility] [place] 08/26/2020 16:39:32 09/01/2020 text/html Patient is a 54 year old female here to establish primary care with the practice as a new patient. Previous PCP: Dr. Wilder Perry Specialists: [facility] : Dr. Jaime SANTO 07/09/2020 Needs to change to [facility] due to insurance - requesting referral Review of [facility] records. Last ER visit on 05/27/2020: Patient [...] 1) chronic pain on chronic narcotic therapy Oxycodone 7.[address] Luna pain management. 2)Degenerative disc disease of her spine - h/o bursitis of hips b/l, knees b/l 3) diverticulosis 4)Tobacco use disorder 5) Urinary incontinence wears poise - does kegels exercise PSH: 1) arthroscopy right knee 2) bilateral hip surgery in [place] due to bursitis 3) fractures facial as a child from playground accident requiring surgery 4) tubal removed FH: Diabetes - mother Last CPE: reports has been within a year Last PAP: approx 1 year ago +yeast infection otherwise normal Last Mammogram: Last mammogram at [facility], [place] this year - normal 06/18/2019 Last Colonoscopy: has not had colonoscopy - Cologuard negative DEXA: has not had one Immunizations needed: Flu vaccine Social History: Has BF with esophageal Cancer 38 yo, 25 yo , 23 yo, 10 grandparents Living in [place] - with Kyle significant other On disability - SSI Education: some college Enjoys gardening Moved 2 yrs ago [facility] Mara Pal, HOT PRESS OPERATOR [address], [place], [address], [place] 09/01/2020 15:08:08 01/14/2021 text/html Patient is a [...] 1) chronic pain on chronic narcotic therapy Oxycodone 7.[address] Luna pain [...] , 23 yo, 10 grandparents Living in [place] - with Kyle significant other On disability - SSI Education: some college Enjoys gardening Moved 2 yrs ago [facility] Mara Pal, HOT PRESS OPERATOR [address], [place], [address], [facility] 01/14/2021 15:00:37 05/25/2021 text/html ROS as noted in the HPI Patient is a 55-year-old female here for [...] to quit at this time. Mara Pal, TANMYA [address], [place], [address], [facility] 05/25/2021 13:47:18 OBGyn Episode No OBEpisode recorded.
--- NOTE | 2025-04-03 11:37 | MHC.OFFVIS ---
Intake Visit Reasons: follow up (not seen since 05/02) Intake Note: Patient presents today for a follow-up Urology Meds- None Allergies to Antibiotic- No Known Allergies Blood Thinner- None Robotics Mechanic Required: No Accompanied by: Self / Same As Patient Allergies amoxicillin (From Augmentin) Allergy (Intermediate, Verified 04/03/25 11:41) Vomiting clavulanic acid (From Augmentin) Allergy (Intermediate, Verified 04/03/25 11:41) Vomiting nitrofurantoin Adverse Reaction (Severe, Verified 04/03/25 11:41) Shortness of Breath HPI Comments Details: 04/03/25-- Cathie is a 57-year-old female who presents today to the office for a 3-month follow up on microscopic hematuria, urgency and bladder pressure. 04/30/2023? She was last seen by me on 01/26/2023 for microscopic hematuria. Myrbetriq 50 mg QD was ordered at that time, and advised to follow up after 3 months during that time. I reviewed the CAT scan of the abdomen/pelvis results from 03/28/2023 revealed colonic diverticulosis most extensive in the sigmoid colon with mild mural thickening but no pericolic fat stranding.? Mild hepatic steatosis without focal lesion.? Grade 1 anterolisthesis at L4 over L5 with degenerative disc changes at L4-L5 and L5-S1 disc levels. She states that she is taking Myrbetriq with benefit; however she reports urine leakage while coughing, persists but is not bothersome. She states that she had tried Kegel?s exercises with minimal benefit. She states she is scheduled for colonoscopy soon. I discussed with the patient that in future if her stress incontinence worsens, will consider minimal invasive treatment options including bulking agent into the bladder neck. Review of charts: Last visit: 01/26/2023? OV?12/14/22-- with [employer] [facility] Regina Arellano for complains of urinary incontinence. Has history of cigarette use. [employer] discussed work up for microscopic hematuria She was sent for CT urogram and urine for cytology. 01/09/23-- The patient complains having pain on the right lower quadrant. She complains urgency and bladder pressure. States that oxybutynin prescribed by [employer] did not help so she stopped taking it. CT urogram/urinary tract are WNL. Collected--12/14/22--Urine cytology-- negative for malignant cells. Cystoscopy findings--No suspicious bladder lesion visualized. Plan: Myrbetriq 50 mg QD. Follow-up after 3 months. 04/30/2023: Plan: Patient is doing better with Myrbetriq. Will continue Myrbetriq 50 mg daily and follow up in one year. PFS Medical History Hx of sigmoidoscopy Pyelonephritis Nephrolithiasis Ureterolithiasis Insomnia History of hypertension Tobacco dependence Urinary incontinence Lumbar spinal stenosis Cervical spondylosis Lumbar radiculopathy Fibromyalgia Degenerative joint disease of spine Surgical History S/P laparoscopic colectomy (04/21/24) H/O colonoscopy History of facial surgery History of salpingectomy History of hip surgery History of right knee surgery Family History Father Esophageal cancer Mother Diabetes mellitus Maternal Grandfather Diabetes mellitus Social History Household Members: Family Household Members Other:: Patient lives by herself Housing: House Do you presently have visiting nurse or other home services: No Alcohol intake: current Alcohol intake frequency: 3 or more drinks per day Alcohol type: beer Patient Tobacco Use Status: Current everyday Tobacco user Tobacco use type: Cigarette Cigarette Packs Per Day: 1 Cigarettes Per Day: 20.0 Years Smoked: 30 Substance Use Type: Marijuana Advance Directives Date on File: 05/28/23 service: No Current occupational status: disabled Current occupation: left hand Sexual orientation: Straight/Heterosexual Gender identity: Female Results AMB Urinalysis, Automated UA Leukoctes 0 Cathi/uL Last Edit by Donna Wei on 04/03/25 12:16 UA Nitrite Negative Last Edit by Donna Wei on 04/03/25 12:16 UA Urobilinogen 3.5 mg/dL Last Edit by Donna Wei on 04/03/25 12:16 UA Protein 0 mg/dL Last Edit by Donna Wei on 04/03/25 12:16 UA pH 6.0 Last Edit by Donna Wei on 04/03/25 12:16 UA Blood 80 Leopoldo/uL Last Edit by Donna Wei on 04/03/25 12:16 UA Specific [place] 1.005 Last Edit by Donna Wei on 04/03/25 12:16 UA Ketone Negative Last Edit by Donna Wei on 04/03/25 12:16 UA Bilirubin 0 mg/dL Last Edit by Donna Wei on 04/03/25 12:16 UA Glucose 0 mg/dL Last Edit by Donna Wei on 04/03/25 12:16 Assessment & Plan Assessment & Plan Orders: Orders AMB Urinalysis Automated Today N39.3 - Stress incontinence (female) (male), R31.29 - Other microscopic hematuria, R39.15 - Urgency of urination, R39.89 - Other symptoms and signs involving the genitourinary system Medications: Refilled mirabegron ER (Myrbetriq) 50 mg PO DAILY 90 days 90 tabs 3RF Coding
== END 2025-04-03 11:58 | disposition home or self-care (01) ==
LOC: HO.HUSH 11:24
PROVIDERS: PCP Internal Medicine Medical Oncology; Visit Provider Urology
DX: R31.29 Other microscopic hematuria (principal); N39.3 Stress incontinence (female) (male); R39.15 Urgency of urination; R39.89 Other symptoms and signs involving the genitourinary system

== ENCOUNTER → 2025-04-03 11:23 | Outpatient (BNVA) | payer OTHER, SELFPAY | PROVIDERS: PCP Internal Medicine Medical Oncology; Visit Provider Urology | DX: R31.29 Other microscopic hematuria (principal); N39.3 Stress incontinence (female) (male); R39.15 Urgency of urination | CPT/HCPCS: 81003; 99212 ==

== ENCOUNTER 2025-05-16 08:23 | Outpatient (REF) | payer OTHER, SELFPAY ==
--- OUTSIDE RECORDS SUMMARY | 2024-11-27 07:30 | XMS_ITS ---
Author Organization Paresh Strong III, MD Address [address] [place] [address] Care Team Providers Care Professor Of Early Childhood Education Name Role Phone Paresh Strong Primary Care Provider Allergies Allergen (clinical drug ingredient) Drug/Non Drug Allergy documented on EMR Reaction Allergy Type Onset Date Status amoxicillin / clavulanate Augmentin vomiting Drug Allergy Active Reason For Referral Reason blocked left ear Diagnosis 1 Ear pain, left (H92. 02) Referral Organization Paresh Strong III, MD Referring Provider First Name Paresh Referring Provider Last Name Tae Referring Provider Speciality Internal M edicine Referred Provider [facility], [facility] Referred Provider Specialty Otolaryngolo gy General Notes Kamilla Proctor CMA 12/01 10:25:29 AM > ref/progress note/x ray faxed to [facility], Kamilla Proctor CMA 01/05/2025 02:16:07 PM >Called [facility] of [facility] pt has appt on 01/20/2025 at 11:00am arrival 11:30am appt with Dr Olsen in [place] on [address] [facility] [address] [facility] 1st floor on right when enter building . Referral Priority Routine Referral Appointment Date 01/20/2025 REASON FOR VISIT Left maxillary sinus infection, Lumbar radiculopathy, Hypertension, Tobacco dependence, Underweight, 3 fractured fingers Medications Medication SIG (Take, Route, Frequency, Duration) Notes Start Date End Date Status Oyster Shell Calcium 500 MG TAKE ONE TAB LET BY MOUTH TWICE A DAY DIRECTED Active Metoprolol Tartrate 25 MG TAKE ONE HALF TABLET BY MOUTH TWICE DAILY Oral Twice a day Active Myrbetriq 50 MG TAKE ONE TABLET BY M OUTH EVERY DAY Oral Active Ondansetron 4 MG DISSOLVE ONE TABLET BY MOUTH EVERY 8 HOURS NEEDED FOR NAUSEA AND VOMITING Oral Active Nystatin 095014 UNIT/ML TAKE 5ML BY MOUT H 4 TIMES A DAY FOR 11 DAYS Mouth/Throat Active Ventolin HFA 108 (90 Base) MCG/ACT two puffs Inhalation every 4 hrs for shortness of breath 05/08/2024 Active Valsartan 40 MG 1/2 tablet Orally Tw ice a day Active Vitamin D3 25 MCG (1000 UT) TAKE ONE TAB LET BY MOUTH EVERY DAY Active Social History Tobacco Use: Social History [...] user Modera te cigarette smoker (10-19 cigs/day) Problems Problem Type SNOMED Code ICD Code Onset Dates Problem Status W/U Status Risk Notes Problem 608348178 Closed displaced fracture of proximal phalanx of right index finger with delayed healing, subsequent encounter (S62.610G) Active confirmed She has 3 fractured fingers and will undergo a course of physical therapy under the supervision of the hand surgeon. The surgeon recommended non-operative therapy. Vital Signs Blood pressure systolic 139 mm Hg 11/28/19 25 Blood pressure diastolic 88 mm Hg 025 Heart Rate 78 /min 11/27/2024 Height 62 in 11/27/2024 Weight 117 lbs 11/27/2024 BMI 21.4 kg/m2 11/27/2024 Encounters Encounter Location Date Provider Diagnosis Paresh Strong III, MD [address] [place] [address] [place] [id number] 11/27/2024 Paresh Strong Essential hypertensi on I10 ; Closed displaced fracture of proximal phalanx of right index finger with delayed healing, subsequent encounter S62.610G ; Pain of maxillary sinus J34.89 ; Degenerative disc disease at L5-S1 level M51.37 ; Lumbar radiculopathy M54.16 ; Ureterolithiasis N20.1 ; Primary insomnia F51.01 and Tobacco dependence F17.200 Assessments Encounter Date Diagnosis (ICD Code) Assessment Notes T reatment Notes Treatment Clinical Notes 11/27/2024 Essential hypertension (ICD-10 - I10) Her blood presssure today is within normal limits. No change in her regimen is needed. 11/27/2024 Closed displaced fracture of proximal phalanx of right index finger with delayed healing, subsequent encounter (ICD-10 - S62.610G) She has 3 fractured fingers and will undergo a course of physical therapy under the supervision of the hand surgeon. 11/27/2024 Pain of maxillary sinus (ICD-10 - J34.89) She was treated with an antibiotic for a sinus infection. A follow-up visit was arranged. 11/27/2024 Degenerative disc disease at L5-S1 level (ICD-10 - M51.37) She has had several MRIs in the past for ppain like this. She has done nothing she can think of to cause this exacerbation. 11/27/2024 Lumbar radiculopathy (ICD-10 - M54.16) She is experiencing a flareup of the pain, likely due to nerve impingement from a disc. An MRI has been ordered and a surgical consultation may be necessary. She is gooing to use heat and rest and ibuprofen at this time. Dexamethasone will be added. If the pain does not improve rapidly. 11/27/2024 Ureterolithiasis (ICD-10 - N20.1) This diagnosis was made in [place] had an episode of renal colic. In recent years she has had no recurrence. She is not aware of any history of hypercalcemia or hyperuricemia. 11/27/2024 Primary insomnia (ICD-10 - F51.01) We discussed melatonin. She will continue on current therapy. 11/27/2024 Tobacco dependence (ICD-10 - F17.200) She has been seen by the gastroenterology consult nontender evaluation is in progress. Plan Of Treatment Medication Medication Name Sig Start Date Stop Date Notes Oyster Shell Calcium 500 MG TAKE ONE TAB LET BY MOUTH TWICE A DAY DIRECTED Metoprolol Tartrate 25 MG TAKE ONE HALF TABLET BY MOUTH TWICE DAILY Oral Twice a day Myrbetriq 50 MG TAKE ONE TABLET BY M OUTH EVERY DAY Oral Ondansetron 4 MG DISSOLVE ONE TABLET BY MOUTH EVERY 8 HOURS NEEDED FOR NAUSEA AND VOMITING Oral Nystatin 173331 UNIT/ML TAKE 5ML BY MOUT H 4 TIMES A DAY FOR 11 DAYS Mouth/Throat Ventolin HFA 108 (90 Base) MCG/ACT two puffs Inhalation every 4 hrs for shortness of breath 05/08/2024 Valsartan 40 MG 1/2 tablet Orally Tw ice a day Vitamin D3 25 MCG (1000 UT) TAKE ONE TAB LET BY MOUTH EVERY DAY Referrals Referral Date Details 11/27/2024 11/27/2024, blocked left ear, of [facility] Next Appt Details Follow Up: 1 Week, Reason: T V review x ray Provider Name:Paresh Strong, 2025 11:15:00 AM, [address] [place] [address] [address], [place], [address], Provider Name:Paresh Strong, 11/24/2025 11:00:00 AM, [address] [place] [address] [address], [place], [address], Progress Notes * Cathie THAKKAR CDOB:[birth year] (59 yo F)Acc No.[id number]:11/27/2024 Progress Notes Patient: Cathie HOSKINS Provider: Nata Strong MD :1965 A ge:59 Y S ex:Female Date:11/27/2024 Address:[address] [place], [place] [id number] Subjective: * Chief Complaints: * L eft maxillary sinus infectionLumbar radiculopathyHypertensionTobacco dependenceUnderweight3 fractured fingers * HPI: C OVID-19 Screening: She has been to the hand surgeon after a recent x-ray of her hand showed 3 fractures. The mobility of those 3 fingers is diminished. A plan for physical therapy is in place. It is felt that surgery will not be necessary. A new complaint is pain in the left maxillary sinus for several days. This is worsened if she bends her head forward. She was given an antibiotic for sinusitis. A follow-up visit was arranged. She had no other acute complaints today. She continues to smoke cigarettes and we discussed smoking cessation at length today again. Questions H ave you had any new onset fever, chills, cough, congestion, sore throat, shortness of breath, muscle aches? N o * ROS: G eneral/Constitutional: pain 3 fingers right hand. C hills d enies. F atigue a dmits. F ever d enies. E NT: Decreased hearing d enies. R espiratory: Cough n on-productive. C ardiovascular: Chest pain with exertion d enies. D yspnea on exertion?denies. S hortness of breath d enies. G astrointestinal: Constipation d enies. D ecreased appetite d enies.?Diarrhea d enies. H eartburn d enies. N ausea d enies. R ectal bleeding?denies. V omiting d enies. H ematology: bruising d enies. p etechiae d enies. S wollen glands n one have been noted. G enitourinary: Frequent urination a t night. M usculoskeletal: Muscle aches d enies. P ainful joints d enies. S ciatica d enies. W eakness d enies. S kin: Itching d enies. R nick d enies. S kin lesion(s)?denies. N eurologic: Difficulty speaking d enies. D izziness d enies.?Headache d enies. L ow back pain d enies. P sychiatric: Depressed mood d enies. * Medical History: * Surgical History: F acial reconstruction Right knee patella reconstruction Bilateral hip surgery Etopic , right salpingectomy History of colonoscopy Last menstrual period 2014 Sigmoid Colectomy 04/2024 * Hospitalization/Major Diagno stic Procedure: [facility], laparoscopic resection of colon 2023 * Family History: F ather: , diagnosed with Cancer. M other: alive, Diabetes mellitus, diagnosed with DM. 1 brother(s) - healthy. 1 son(s) , 2 daughter(s) - healthy. . Her mother and grandmother had diabetes. There is no history of coronary artery disease. She is not aware of any family history of mental illness or substance use disorder. * Social History: T obacco Use: T obacco Control (Standard) T obacco use: C urrent smoker H ow often do you smoke cigarettes? E very day H ow many cigarettes a day do you smoke? 6 -10 H ow soon after you wake up do you smoke your first cigarette? 6 -30 minutes A re you interested in quitting? N ot ready to quit A dditional Findings: Tobacco user M oderate cigarette smoker (10-19 cigs/day) S he was born in [place], [place]. She moved to [place] at the age of 53 and has just returned due to the of Kyle,a significant other, from esophageal cancer. She has 3 children, Shayne 40, Mariana 36, Nyasia 33. She has 10 grandchildren. She is unemployed and disabled at this time due to degenerative disease of the spine. She is now single. * Medications: T akingValsartan 40 MG Tablet 1/2 tablet Orally Twice a day Ventolin HFA 108 (90 Base) MCG/ACT Aerosol Solution two puffs Inhalation every 4 hrs for shortness of breath Metoprolol Tartrate 25 MG Tablet TAKE ONE HALF TABLET BY MOUTH TWICE DAILY Oral Twice a day Oyster Shell Calcium 500 MG Tablet TAKE ONE TABLET BY MOUTH TWICE A DAY DIRECTED Nystatin 684090 UNIT/ML Suspension TAKE 5ML BY MOUTH 4 TIMES A DAY FOR 11 DAYS Mouth/Throat Ondansetron 4 MG Tablet Disintegrating DISSOLVE ONE TABLET BY MOUTH EVERY 8 HOURS NEEDED FOR NAUSEA AND VOMITING Oral Myrbetriq 50 MG Tablet Extended Release 24 Hour TAKE ONE TABLET BY MOUTH EVERY DAY Oral Vitamin D3 25 MCG (1000 UT) Tablet TAKE ONE TABLET BY MOUTH EVERY DAY Medication List reviewed and reconciled with the patientTaking Valsartan 40 MG Tablet 1/2 tablet Orally Twice a day Taking Ventolin HFA 108 (90 Base) MCG/ACT Aerosol Solution two puffs Inhalation every 4 hrs for shortness of breath Taking Metoprolol Tartrate 25 MG Tablet TAKE ONE HALF TABLET BY MOUTH TWICE DAILY Oral Twice a day Taking Oyster Shell Calcium 500 MG Tablet TAKE ONE TABLET BY MOUTH TWICE A DAY DIRECTED Taking Nystatin 863671 UNIT/ML Suspension TAKE 5ML BY MOUTH 4 TIMES A DAY FOR 11 DAYS Mouth/Throat Taking Ondansetron 4 MG Tablet Disintegrating DISSOLVE ONE TABLET BY MOUTH EVERY 8 HOURS NEEDED FOR NAUSEA AND VOMITING Oral Taking Myrbetriq 50 MG Tablet Extended Release 24 Hour TAKE ONE TABLET BY MOUTH EVERY DAY Oral Taking Vitamin D3 25 MCG (1000 UT) Tablet TAKE ONE TABLET BY MOUTH EVERY DAY Medication List reviewed and reconciled with the patient * Allergies: A ugmentin: brenda[Allergies Verified] Objective: * Vitals: H t: 62, Wt: 117, BMI:21.4, BP: 139/88, HR: 78, Wt-k.07. * Examination: G eneral Examination: GENERAL APPEARANCE: p leasant, well nourished, well developed, in no acute distress, calm and relaxed, woman. HEAD: a traumatic, normocephalic. EYES: e yanick, perrla, anicteric, conjugate. EARS: n ormal. NOSE: s eptum intact. ORAL CAVITY: n ormal, unremarkable. NECK/THYROID: n o jugular venous distention, no carotid bruit, thyroid normal. LYMPH NODES: n o enlarged lymph nodes,spleen normal. SKIN: n o suspicious lesions, anicteric. HEART: n o clicks, gallops, murmurs, or rubs, regular rhythm, S1, S2 normal, no s3, or vascular bruits. LUNGS: c lear to auscultation . BREASTS: N ot examined. ABDOMEN: b owel sounds normal, no ascites, no organomegaly, no mass. RECTAL EXAM: n ot examined. MUSCULOSKELETAL: S ignificant loss of mobility second third and fourth fingers right hand with pain. PERIPHERAL PULSES: n ormal. NEUROLOGIC: a lert and oriented, cranial nerves 2-12 grossly intact, deep tendon reflexes 2+ symmetrical, motor strength normal upper and lower extremities, sensory exam intact. PSYCH: a lert, oriented. Assessment: * Assessment: 1. C losed displaced fracture of proximal phalanx of right index finger with delayed healing, subsequent encounter - S62.610G (Primary) N otes :She has 3 fractured fingers and will undergo a course of physical therapy under the supervision of the hand surgeon. 2 . E ssential hypertension - I10 N otes :Her blood presssure today is within normal limits. No change in her regimen is needed. 3 . P ain of maxillary sinus - J34.89 N otes :She was treated with an antibiotic for a sinus infection. A follow-up visit was arranged. 4 . D egenerative disc disease at L5-S1 level - M51.37 N otes :She has had several MRIs in the past for ppain like this. She has done nothing she can think of to cause this exacerbation. 5 . L umbar radiculopathy - M54.16 N otes :She is experiencing a flareup of the pain, likely due to nerve impingement from a disc. An MRI has been ordered and a surgical consultation may be necessary. She is gooing to use heat and rest and ibuprofen at this time. Dexamethasone will be added. If the pain does not improve rapidly. 6 . U reterolithiasis - N20.1 N otes :This diagnosis was made in [place] had an episode of renal colic. In recent years she has had no recurrence. She is not aware of any history of hypercalcemia or hyperuricemia. 7 . P rimary insomnia - F51.01 N otes :We discussed melatonin. She will continue on current therapy. 8 . T obacco dependence - F17.200 N otes :She has been seen by the gastroenterology consult nontender evaluation is in progress. Plan: * Treatment: 2. P ain of maxillary sinus I maging: XR SINUSES 3. O thers Continue Valsartan Tablet, 40 MG, 1/2 tablet, Orally, Twice a day; C ontinue Ventolin HFA Aerosol Solution, 108 (90 Base) MCG/ACT, two puffs, Inhalation, every 4 hrs for shortness of breath; C ontinue Metoprolol Tartrate Tablet, 25 MG, TAKE ONE HALF TABLET BY MOUTH TWICE DAILY, Oral, Twice a day; C ontinue Oyster Shell Calcium Tablet, 500 MG, TAKE ONE TABLET BY MOUTH TWICE A DAY DIRECTED; C ontinue Nystatin Suspension, 025284 UNIT/ML, TAKE 5ML BY MOUTH 4 TIMES A DAY FOR 11 DAYS, Mouth/Throat; C ontinue Ondansetron Tablet Disintegrating, 4 MG, DISSOLVE ONE TABLET BY MOUTH EVERY 8 HOURS NEEDED FOR NAUSEA AND VOMITING, Oral. ? Referral To:of [facility], [facility] Otol[facility]ology Reason:blocked left ear * Procedure Codes: * Preventive Medicine: Counseling: S moking/Tobacco Use Patient counseled on the dangers of tobacco use and urged to quit. 0 11/27/2024 Patient Lifestyle Goals P atient wants to quit Treatment Goals S et a quit date, Cut down by 1 cigarette a week Barriers S tress, Social smoker Self-Management Plan M [place] a plan to cut down number of cigarettes over time and set a date to work towards quitting * Follow Up: 1 Week (Reason: TV review x ray) * Images: * Sign off status: Completed true * Provider: Nata Strong MD Date: 0 11/27/2024 Generated for Parrishi ng/Fashelbyg/eTransmitting on: 0 05/16/2025 08:27 AM EDT History and Physical Notes * HPI (History of Present Illness) Category Sub-Category Detail Notes COVID-19 Screening Questions Have you had any new onset fever, chills, cough, congestion, sore throat, shortness of breath, muscle aches?: No Examination Category Sub-Category Detail Notes General Examination GENERAL APPEARANCE: pleasant , well nourished, well developed, in no acute distress, calm and relaxed, woman HEAD: atraumatic, normocep halic EYES: eomi, [...] lesion s, anicteric PERIPHERAL PULSES: normal BREASTS: Not examined MUSCULOSKELETAL: Significant loss of mobility second third and fourth fingers right hand with pain LYMPH NODES: no enlarged lymph no ami,spleen normal RECTAL EXAM: not examined PSYCH: alert, oriented ORAL CAVITY: normal, unremarkable Consultation Request Notes Referral Date Referring Provider Referred Provider Not es 11/27/2024 Paresh Strong [facility], [facility] blocked left ear
--- OUTSIDE RECORDS SUMMARY | 2024-12-04 06:45 | XMS_ITS ---
Author Organization Paresh Strong III, MD Address [address] [place] [address] Care Team Providers Care Network Security Administrator Name Role Phone Paresh Strong Primary Care [...] Provider Speciality Internal M edicine Referred Provider [facility], [facility], [facility] Referred Provider Specialty Otolaryngolo gy General Notes Kamilla Proctor CMA 01/06 10:09:25 AM > I called patient she stated she is aware of this appt with Dr. Olsen 11:00am arrival appt at 11:30am in [place] office [address] [place] [address] Referral Priority Routine Referral Appointment Date 01/20/2025 [...] FOR NAUSEA AND VOMITING Oral Active Nystatin 680605 UNIT/ML TAKE 5ML BY MOUT H 4 [...] Date Provider Diagnosis Paresh Strong III, MD [address] [place] [address] [place] [address] 12/04/2024 aPresh Strong Essential hypertensi on I10 ; Closed [...] NEEDED FOR NAUSEA AND VOMITING Oral Nystatin 342136 UNIT/ML TAKE 5ML BY MOUT H 4 [...] Pain at site of past surgery, of [facility], [facility] Next Appt Details Follow Up: 4 Weeks, Reason: OV Provider Name:Paresh Strong, 2025 11:15:00 AM, [address] [place] [address] [address], [place], [address], Provider Name:Paresh Strong, 11/24/2025 11:00:00 AM, [address] [place] [address] [address], [place], [address], Progress Notes * DAREKMANISHTRINACathie CDOB:[birth year] (59 yo F)Acc No.[id number]:12/04/2024 Patient: Cathie HOSKINS Provider: Nata Strong MD :1965 A ge:59 Y S ex:Female Date:12/04/2024 Address:[address] [place] [address] V[place] Farida [id number] Subjective: * Chief Complaints: * F ractured [...] of provider rendering services: { ...} [address] [address] L ocation of patient: a ddress listed [...] Colectomy 04/2024 * Hospitalization/Major Diagno stic Procedure: [facility] [place], laparoscopic resection of colon 2023 * Family [...] (10-19 cigs/day) S he was born in [place], [place]. She moved to [place] at the age of 53 and has [...] BY MOUTH TWICE A DAY DIRECTED Nystatin 040493 UNIT/ML Suspension TAKE 5ML BY MOUTH 4 [...] MOUTH TWICE A DAY DIRECTED Taking Nystatin 307887 UNIT/ML Suspension TAKE 5ML BY MOUTH 4 [...] N otes :This diagnosis was made in [place] had an [...] A DAY DIRECTED; C ontinue Nystatin Suspension, 436126 UNIT/ML, TAKE 5ML BY MOUTH 4 TIMES A DAY FOR 11 DAYS, Mouth/Throat; C ontinue Ondansetron Tablet Disintegrating, 4 MG, DISSOLVE ONE TABLET BY MOUTH EVERY 8 HOURS NEEDED FOR NAUSEA AND VOMITING, Oral. ? Referral To:[facility] Otolaryngology Reason:Evaluate and [...] MD Date: 0 12/04/2024 Generated for Sajan roberts/Crystal/Carlaitting on: 0 05/16/2025 08:26 AM EDT History and Physical Notes * HPI (History of Present Illness) Category Sub-Category Detail Notes Telehealth Location of [facility] rendering services:: {...} [address] [place] [id number] Location of patient:: address listed in demographics [...] Not es 12/04/2024 Paresh Strong [facility], of [facility], [facility] Evaluate and Treat Facial Injury in past to nose, eye, ear and History of surgeries Pain at site of past surgery
--- OUTSIDE RECORDS SUMMARY | 2025-01-01 06:45 | XMS_ITS ---
Author Organization Paresh Strong III, MD Address [address] [facility] [place] [address] Care Team Providers Care Telephone Lineworker Name Role Phone Paresh Strong Primary Care Provider Allergies Allergen (clinical drug ingredient) Drug/Non Drug Allergy documented on EMR Reaction Allergy Type Onset Date Status amoxicillin / clavulanate Augmentin vomiting Drug Allergy Active REASON FOR VISIT Seasonal allergies, DJD L5-S1, Lumbar radiculopathy, Cervical spine lordosis, Hypertension, Insomnia, Tobacco dependence, Underweight, Fractured fingers Medications Medication SIG (Take, Route, Frequency, Duration) Notes Start Date End Date Status Loratadine 10 MG 1 tablet Orally Once a day for 30 days 01/01/2025 06/30/2025 Active Fluticasone Furoate 27.5 MCG/SPRAY 2 sprays (1 spray in each nostril) Nasally Once a day for 30 days 01/01/2025 Active Myrbetriq 50 MG 1 tablet Orally Once a day for 30 days 01/01/2025 05/01/2025 Active Oyster Shell Calcium 500 MG TAKE ONE TABLET BY MOUTH TWICE A DAY DIRECTED Active Nystatin 139440 UNIT/ML TAKE 5ML BY MOUT H 4 TIMES A DAY FOR 11 DAYS Mouth/Throat Active Ondansetron 4 MG DISSOLVE ONE TABLET BY MOUTH EVERY 8 HOURS NEEDED FOR NAUSEA AND VOMITING Oral Active Myrbetriq 50 MG TAKE ONE TABLET BY M OUTH EVERY DAY Oral Active Vitamin D3 25 MCG (1000 UT) TAKE ONE TABLET BY MOUTH EVERY DAY Active Valsartan 40 MG 1/2 tablet Orally Tw ice a day Active Ventolin HFA 108 (90 Base) MCG/ACT two puffs Inhalation every 4 hrs for shortness of breath 05/08/2024 Active Metoprolol Tartrate 25 MG TAKE ONE HALF TABLET BY MOUTH TWICE DAILY Oral Twice a day Active Social History Tobacco Use: [...] Problem Status W/U Status Risk Notes Problem 680075301 Seasonal allergies (J30.2) Active confirmed I prescribed loratadine and flonase. Vital Signs Temperature 97.0 degrees Fahrenheit 01/02/20 25 Blood pressure systolic 126 mm Hg 01/02/20 25 Blood pressure diastolic 79 mm Hg 025 Heart Rate 86 /min 01/01/2025 Height 62 in 01/01/2025 Weight 115 lbs 01/01/2025 BMI 21.03 kg/m2 01/01/2025 Encounters Encounter Location Date Provider Diagnosis Paresh Strong III, MD [address] [place] [address] [place] [address] 01/01/2025 Paresh Strong Essential hypertensi on I10 ; Urinary incontinence R32 ; Degenerative disc disease at L5-S1 level M51.37 ; Cervical spondylosis M47.812 ; Lumbar radiculopathy M54.16 ; Hyperlipidemia E78.5 ; Vitamin D deficiency E55.9 ; Closed displaced fracture of proximal phalanx of right index finger with delayed healing, subsequent encounter S62.610G ; Seasonal allergies J30.2 and Tobacco dependence F17.200 Assessments Encounter Date Diagnosis (ICD Code) Assessment Notes T reatment Notes Treatment Clinical Notes 01/01/2025 Essential hypertension (ICD-10 - I10) Her blood pressure is 126/79. No change in her regimen is needed. 01/01/2025 Urinary incontinence (ICD-10 - R32) She has been to see urology and had the cystoscopy. Apparently there were no significant findings. We have requested the note. She has had no hematuria. I refilled her myrbetrig. 01/01/2025 Degenerative disc disease at L5-S1 level (ICD-10 - M51.37) She has had several MRIs in the past for ppain like this. She has done nothing she can think of to cause this exacerbation. 01/01/2025 Cervical spondylosis (ICD-10 - M47.812) She has chronic pain with range of motion of the neck. There is no radiculopathy. 01/01/2025 Lumbar radiculopathy (ICD-10 - M54.16) She is experiencing a flareup of the pain, likely due to nerve impingement from a disc. An MRI has been ordered and a surgical consultation may be necessary. She is gooing to use heat and rest and ibuprofen at this time. Dexamethasone will be added. If the pain does not improve rapidly. 01/01/2025 Hyperlipidemia (ICD-10 - E78.5) Comprehensive blood work with a fasting lipid profile will be done tomorrow morning. 01/01/2025 Vitamin D deficiency (ICD-10 - E55.9) Vitamin D supplementation was discussed today. I recommended 1000 units daily. 01/01/2025 Closed displaced fracture of proximal phalanx of right index finger with delayed healing, subsequent encounter (ICD-10 - S62.610G) She has 3 fractured fingers and will undergo a course of physical therapy under the supervision of the hand surgeon. The surgeon recommended non-operative therapy. 01/01/2025 Seasonal allergies (ICD-10 - J30.2) I prescribed loratadine and flonase. 01/01/2025 Tobacco dependence (ICD-10 - F17.200) She has been seen by the gastroenterology consult nontender evaluation is in progress. Plan Of Treatment Medication Medication Name Sig Start Date Stop Date Notes Loratadine 10 MG 1 tablet Orally Once a day for 30 days 01/01/2025 06/30/2025 Fluticasone Furoate 27.5 MCG/SPRAY 2 sprays (1 spray in each nostril) Nasally Once a day for 30 days 01/01/2025 Myrbetriq 50 MG 1 tablet Orally Once a day for 30 days 01/01/2025 05/01/2025 Oyster Shell Calcium 500 MG TAKE ONE TAB LET BY MOUTH TWICE A DAY DIRECTED Nystatin 313391 UNIT/ML TAKE 5ML BY MOUT H 4 TIMES A DAY FOR 11 DAYS Mouth/Throat Ondansetron 4 MG DISSOLVE ONE TABLET BY MOUTH EVERY 8 HOURS NEEDED FOR NAUSEA AND VOMITING Oral Myrbetriq 50 MG TAKE ONE TABLET BY M OUTH EVERY DAY Oral Vitamin D3 25 MCG (1000 UT) TAKE ONE TAB LET BY MOUTH EVERY DAY Valsartan 40 MG 1/2 tablet Orally Tw ice a day Ventolin HFA 108 (90 Base) MCG/ACT two puffs Inhalation every 4 hrs for shortness of breath 05/08/2024 Metoprolol Tartrate 25 MG TAKE ONE HALF TABLET BY MOUTH TWICE DAILY Oral Twice a day Next Appt Details Follow Up: 8 weeks review trent bs, Reason: OV REVIEW LABS Provider Name:Paresh Strong, 2025 11:15:00 AM, [address] [place] [address] [address], [place], [address], Provider Name:Paresh Strong, 11/24/2025 11:00:00 AM, [address] [place] [address] [address], [place], [address], Progress Notes * Cathie THAKKAR CDOB:[birth year] (59 yo F)Acc No.[id number]:01/01/2025 Progress Notes Patient: Cathie HOSKINS Provider: Nata Strong MD :1965 A ge:59 Y S ex:Female Date:01/01/2025 Address:[address] [place], [place] [id number] Subjective: * Chief Complaints: * S easonal allergiesDJD L5-A3Spoajj radiculopathyCervical spine lordosisHypertensionInsomniaTobacco dependenceUnderweightFractured fingers * HPI: C OVID-19 Screening: She returns for management of several issues. Her main complaint is seasonal allergies. I have prescribed Flonase and loratadine as she has severe allergies this year. I have refilled her Myrbetrig she sees urology. She takes is for incontinence. Her back pain is present and moderate. She continues to smoke 10 cigarettes a day. Has an appointment January 31, 2025 to see ENT. She is under the care of Dr. De La Torre, hand surgeon, for several fractured fingers in her hand. She is receiving nonoperative therapy at this point. Questions H ave you had any new onset fever, chills, cough, congestion, sore throat, shortness of breath, muscle aches? N o * ROS: G eneral/Constitutional: pain R ight hand, Neck, low back. C hills d enies.?Fatigue a dmits. F ever d enies. E NT: Decreased hearing d enies. R espiratory: Cough d enies. C ardiovascular: Chest pain with exertion d enies. D yspnea on exertion?denies. S hortness of breath d enies. G astrointestinal: Constipation o ccasional. D ecreased appetite d enies. D iarrhea d enies. H eartburn o ccasional. N ausea d enies. R ectal bleeding d enies. V omiting d enies. H ematology: bruising d enies. p etechiae d enies. S wollen glands n one have been noted. G enitourinary: Frequent urination a t night. M usculoskeletal: Muscle aches d enies. P ainful joints C ervical spine, lumbar spine, right hand. S ciatica d enies. W eakness d enies. S kin: Itching d enies. R nick d enies. S kin lesion(s)?denies. N eurologic: Difficulty speaking d enies. D izziness d enies.?Headache d enies. L ow back pain d enies. P sychiatric: Depressed mood w hich is moderate. * Medical History: * Surgical History: F acial reconstruction Right knee patella reconstruction Bilateral hip surgery Etopic , right salpingectomy History of colonoscopy Last menstrual period 2014 Sigmoid Colectomy 04/2024 * Hospitalization/Major Diagno stic Procedure: [facility], laparoscopic resection of colon 2023 * [...] (10-19 cigs/day) S he was born in [place], [place]. She moved to [place] at the age of 53 and has [...] TABLET BY MOUTH TWICE A DAY DIRECTED Myrbetriq 50 MG Tablet Extended Release 24 Hour TAKE ONE TABLET BY MOUTH EVERY DAY Oral Vitamin D3 25 MCG (1000 UT) Tablet TAKE ONE TABLET BY MOUTH EVERY DAY Taking Valsartan 40 MG Tablet 1/2 tablet [...] BY MOUTH TWICE A DAY DIRECTED Taking Myrbetriq 50 MG Tablet Extended Release 24 Hour TAKE ONE TABLET BY MOUTH EVERY DAY Oral Taking Vitamin D3 25 MCG (1000 UT) Tablet TAKE ONE TABLET BY MOUTH EVERY DAY DiscontinuedNystatin 852447 UNIT/ML Suspension TAKE 5ML BY MOUTH 4 TIMES A DAY FOR 11 DAYS Mouth/Throat Ondansetron 4 MG Tablet Disintegrating DISSOLVE ONE TABLET BY MOUTH EVERY 8 HOURS NEEDED FOR NAUSEA AND VOMITING Oral Medication List reviewed and reconciled with the patientDiscontinued Nystatin 547327 UNIT/ML Suspension TAKE 5ML BY MOUTH 4 TIMES A DAY FOR 11 DAYS Mouth/Throat Discontinued Ondansetron 4 MG Tablet Disintegrating DISSOLVE ONE TABLET BY MOUTH EVERY 8 HOURS NEEDED FOR NAUSEA AND VOMITING Oral Medication List reviewed and reconciled with the patient * Allergies: A ugmentin: vomitingno[Allergies Verified] Objective: * Vitals: H t: 62, Wt: 115, BMI:21.03, BP: 126/79, HR: 86, Temp: 97.0, Ht-cm: 157.48, Wt-k.16. * Examination: G eneral Examination: GENERAL APPEARANCE: p leasant, well nourished, well developed, in no acute distress, calm and relaxed, woman. HEAD: a traumatic, normocephalic. EYES: e yanick, perrla, anicteric, conjugate, Red. EARS: n ormal. NOSE: s eptum intact, Congestive. ORAL CAVITY: n ormal, unremarkable. NECK/THYROID: n o jugular venous distention, no carotid bruit, thyroid normal. LYMPH NODES: n o enlarged lymph nodes,spleen normal. SKIN: n o suspicious lesions, anicteric. HEART: n o clicks, gallops, murmurs, or rubs, regular rhythm, S1, S2 normal, no s3, or vascular bruits. LUNGS: , diminished breath sounds throughout, good air movement. BREASTS: N ot examined. ABDOMEN: b owel sounds normal, no ascites, no organomegaly, no mass. RECTAL EXAM: n ot examined. MUSCULOSKELETAL: e xtremities unremarkable, no clubbing, cyanosis or edema, Decreased range of motion of neck and lumbar spine, pain to manipulation of metatarsals and fingers arising. PERIPHERAL PULSES: n ormal. NEUROLOGIC: a lert and oriented, cranial nerves 2-12 grossly intact, deep tendon reflexes 2+ symmetrical, motor strength normal upper and lower extremities, sensory exam intact. PSYCH: a lert, oriented. Assessment: * Assessment: 1. E ssential hypertension - I10 (Primary) N otes :Her blood pressure is 126/79. No change in her regimen is needed. 2 . U rinary incontinence - R32 N otes :She has been to see urology and had the cystoscopy. Apparently there were no significant findings. We have requested the note. She has had no hematuria. I refilled her myrbetrig. 3 . D egenerative disc disease at L5-S1 level - M51.37 N otes :She has had several MRIs in the past for ppain like this. She has done nothing she can think of to cause this exacerbation. 4 . C ervical spondylosis - M47.812 N otes :She has chronic pain with range of motion of the neck. There is no radiculopathy. 5 . L umbar radiculopathy - M54.16 N otes :She is experiencing a flareup of the pain, likely due to nerve impingement from a disc. An MRI has been ordered and a surgical consultation may be necessary. She is gooing to use heat and rest and ibuprofen at this time. Dexamethasone will be added. If the pain does not improve rapidly. 6 . H yperlipidemia - E78.5 N otes :Comprehensive blood work with a fasting lipid profile will be done tomorrow morning. 7 . V itamin D deficiency - E55.9 N otes :Vitamin D supplementation was discussed today. I recommended 1000 units daily. 8 . C losed displaced fracture of proximal phalanx of right index finger with delayed healing, subsequent encounter - S62.610G N otes :She has 3 fractured fingers and will undergo a course of physical therapy under the supervision of the hand surgeon. The surgeon recommended non-operative therapy. 9 . S easonal allergies - J30.2 N otes :I prescribed loratadine and flonase. 1 0. T obacco dependence - F17.200 N otes :She has been seen by the gastroenterology consult nontender evaluation is in progress. Plan: * Treatment: 2. O thers Continue [...] A DAY DIRECTED; C ontinue Nystatin Suspension, 749124 UNIT/ML, TAKE 5ML BY MOUTH 4 TIMES A DAY FOR 11 DAYS, Mouth/Throat; C ontinue Ondansetron Tablet Disintegrating, 4 MG, DISSOLVE ONE TABLET BY MOUTH EVERY 8 HOURS NEEDED FOR NAUSEA AND VOMITING, Oral. * Procedure Codes: * Preventive Medicine: Counseling: S moking/Tobacco Use Patient counseled on the dangers of tobacco use and urged to quit. 0 01/01/2025 * Follow Up: 8 weeks review labs (Reason: OV REVIEW LABS) * Images: * Sign off status: Completed true * Provider: Nata Strong MD Date: 01/01/2025 Generated for Sajan roberts/Crystal/Annie on: 0 05/16/2025 08:27 AM EDT History [...] normocep halic EYES: eomi, perrla, anicte china, conjugate, Red EARS: normal NOSE: septum intact, Conge stive NECK/THYROID: no jugular venous di stention, no carotid bruit, thyroid normal HEART: no clicks, gallops, murmurs, or rubs, regular rhythm, S1, S2 normal, no s3, or vascular bruits LUNGS: , diminished breath sounds throughout, good air movement ABDOMEN: bowel sounds normal, no ascites, no organomegaly, no mass NEUROLOGIC: alert and oriented, cranial nerves 2-12 grossly intact, deep tendon reflexes 2+ symmetrical, motor strength normal upper and lower extremities, sensory exam intact SKIN: no suspicious lesion s, anicteric PERIPHERAL PULSES: normal BREASTS: Not examined MUSCULOSKELETAL: extremities unremark able, no clubbing, cyanosis or edema, Decreased range of motion of neck and lumbar spine, pain to manipulation of metatarsals and fingers arising LYMPH NODES: no enlarged lymph no ami,spleen normal RECTAL EXAM: not examined PSYCH: alert, oriented ORAL CAVITY: normal, unremarkable
--- OUTSIDE RECORDS SUMMARY | 2025-03-05 07:15 | XMS_ITS ---
Author Organization Paresh Strong III, MD Address [address] [place] [address] Care Team Providers Care Phytopathology Teacher Name Role Phone Paresh Strong Primary Care Provider Allergies Allergen (clinical drug ingredient) Drug/Non Drug Allergy documented on EMR Reaction Allergy Type Onset Date Status amoxicillin / clavulanate Augmentin vomiting Drug Allergy Active REASON FOR VISIT Lumbar radiculopathy, Spinal stenosis, Hypertension, Ureterolithiasis, Insomnia, Tobacco dependence, Fracture right third finger, Allergies Medications Medication SIG (Take, Route, Frequency, Duration) Notes Start Date End Date Status Fluticasone Furoate 27.5 MCG/SPRAY 2 sprays (1 spray in each nostril) Nasally Once a day 01/01/2025 Active Myrbetriq 50 MG 1 tablet Orally Once a day 01/01/2025 Active Vitamin D3 25 MCG (1000 UT) TAKE ONE TAB LET BY MOUTH EVERY DAY Active Loratadine 10 MG 1 tablet Orally Once a day 01/01/2025 Active Myrbetriq 50 MG TAKE ONE TABLET BY M OUTH EVERY DAY Oral Active Metoprolol Tartrate 25 MG TAKE ONE HALF TABLET BY MOUTH TWICE DAILY Oral Twice a day Active Oyster Shell Calcium 500 MG TAKE ONE TAB LET BY MOUTH TWICE A DAY DIRECTED Active Ventolin HFA 108 (90 Base) MCG/ACT two puffs Inhalation every 4 hrs for shortness of breath 05/08/2024 Active Ondansetron 4 MG DISSOLVE ONE TABLET BY MOUTH EVERY 8 HOURS NEEDED FOR NAUSEA AND VOMITING Oral Active Nystatin 872901 UNIT/ML TAKE 5ML BY MOUT H 4 TIMES A DAY FOR 11 DAYS Mouth/Throat Active Valsartan 40 MG 1/2 tablet Orally [...] cigarette smoker (10-19 cigs/day) Vital Signs Temperature 97.3 degrees Fahrenheit 03/05/20 25 Blood pressure systolic 118 mm Hg 03/05/20 25 Blood pressure diastolic 86 mm Hg 025 Heart Rate 70 /min 03/05/2025 Height 62 in 03/05/2025 Weight 117 lbs 03/05/2025 BMI 21.4 kg/m2 03/05/2025 Encounters Encounter Location Date Provider Diagnosis Paresh Strong III, MD [address] [place] [address] [place] [address] 03/05/2025 Paresh Strong Essential hypertensi on I10 ; Degenerative disc disease at L5-S1 level M51.37 ; Urinary incontinence R32 ; Cervical spondylosis M47.812 ; Lumbar radiculopathy M54.16 ; Spinal stenosis of lumbar region, unspecified whether neurogenic claudication present M48.061 ; Primary insomnia F51.01 ; Ureterolithiasis N20.1 ; Hyperlipidemia E78.5 ; Tobacco dependence F17.200 ; Closed nondisplaced fracture of phalanx of finger, unspecified finger, unspecified phalanx, initial encounter S62.609A and Seasonal allergies J30.2 Assessments Encounter Date Diagnosis (ICD Code) Assessment Notes T reatment Notes Treatment Clinical Notes 03/05/2025 Essential hypertension (ICD-10 - I10) Her blood pressure is normal. No change in her regimen is needed. 03/05/2025 Degenerative disc disease at L5-S1 level (ICD-10 - M51.37) She has had several MRIs in the past for ppain like this. She has done nothing she can think of to cause this exacerbation. 03/05/2025 Urinary incontinence (ICD-10 - R32) She has been to see urology and had the cystoscopy. Apparently there were no significant findings. We have requested the note. She has had no hematuria. I refilled her myrbetrig. 03/05/2025 Cervical spondylosis (ICD-10 - M47.812) She has chronic pain with range of motion of the neck. There is no radiculopathy. 03/05/2025 Lumbar radiculopathy (ICD-10 - M54.16) She is experiencing a flareup of the pain, likely due to nerve impingement from a disc. An MRI has been ordered and a surgical consultation may be necessary. She is gooing to use heat and rest and ibuprofen at this time. Dexamethasone will be added. If the pain does not improve rapidly. 03/05/2025 Spinal stenosis of lumbar region, unspecified whether neurogenic claudication present (ICD-10 - M48.061) She will refrain from heavy lifting. If necessary, she will see surgery. 03/05/2025 Primary insomnia (ICD-10 - F51.01) We discussed melatonin. She will continue on current therapy. 03/05/2025 Ureterolithiasis (ICD-10 - N20.1) This diagnosis was made in [place] had an episode of renal colic. In recent years she has had no recurrence. She is not aware of any history of hypercalcemia or hyperuricemia. 03/05/2025 Hyperlipidemia (ICD-10 - E78.5) Comprehensive blood work with a fasting lipid profile will be done tomorrow morning. 03/05/2025 Tobacco dependence (ICD-10 - F17.200) She has been seen by the gastroenterology consult nontender evaluation is in progress. 03/05/2025 Closed nondisplaced fracture of phalanx of finger, unspecified finger, unspecified phalanx, initial encounter (ICD-10 - S62.609A) I suspect that there are fractures in the fingers of the right hand which are swollen and have limited flexion. I ordered an x-ray. She will need a consultation from hand surgery. 03/05/2025 Seasonal allergies (ICD-10 - J30.2) I prescribed loratadine and flonase. Plan Of Treatment Medication Medication Name Sig Start Date Stop Date Notes Fluticasone Furoate 27.5 MCG/SPRAY 2 sprays (1 spray in each nostril) Nasally Once a day 01/01/2025 Myrbetriq 50 MG 1 tablet Orally Once a day 01/01/2025 Vitamin D3 25 MCG (1000 UT) TAKE ONE TAB LET BY MOUTH EVERY DAY Loratadine 10 MG 1 tablet Orally Once a day 01/01/2025 Myrbetriq 50 MG TAKE ONE TABLET BY M OUTH EVERY DAY Oral Metoprolol Tartrate 25 MG TAKE ONE HALF TABLET BY MOUTH TWICE DAILY Oral Twice a day Oyster Shell Calcium 500 MG TAKE ONE TAB LET BY MOUTH TWICE A DAY DIRECTED Ventolin HFA 108 (90 Base) MCG/ACT two puffs Inhalation every 4 hrs for shortness of breath 05/08/2024 Ondansetron 4 MG DISSOLVE ONE TABLET BY MOUTH EVERY 8 HOURS NEEDED FOR NAUSEA AND VOMITING Oral Nystatin 732116 UNIT/ML TAKE 5ML BY MOUT H 4 TIMES A DAY FOR 11 DAYS Mouth/Throat Valsartan 40 MG 1/2 tablet Orally Tw ice a day Next Appt Details Follow Up: 2 Months, Reason: OV Provider Name:Paresh Strong, 2025 11:15:00 AM, [address] [place] [address] [address], [place], [address], Provider Name:Paresh Strong, 11/24/2025 11:00:00 AM, [address] [place] [address] [address], [place], [address], Progress Notes * Cathie THAKKAR CDOB:[birth year] (59 yo F)Acc No.[id number]:03/05/2025 Progress Notes Patient: Cathie HOSKINS Provider: Nata Strong MD :[id number] A ge:59 Y S ex:Female Date:03/05/2025 Address:[address] [place] [address] [place] Iqbal [id number] Subjective: * Chief Complaints: * L umbar radiculopathySpinal stenosisHypertensionUreterolithiasisInsomniaTobacco dependenceFracture right third fingerAllergies * HPI: C OVID-19 Screening: She returns for medical management of several issues. She had been referred to ENT and was seen. They ordered a CT scan of her head which will be done in April of this year. She has pain in her back and legs which has been a nuisance lately. She reports that for years she took oxycodone for this but no longer does. She has requested a letter absolving her from jury duty as she does not think she can sit still for long periods of time. She brought on MRI report from [facility] in [place] that she had last year. She is now permanently moved to [place] from [place]. Questions H ave you had any new onset fever, chills, cough, congestion, sore throat, shortness of breath, muscle aches? N o * ROS: G eneral/Constitutional: pain L umbar spine night goes down her legs, Fracture right third finger which is healing. C hills d enies. F atigue a [...] Muscle aches d enies. P ainful joints R ight third finger. S ciatica d enies. W eakness d [...] salpingectomy History of colonoscopy Last menstrual period 2015 Sigmoid Colectomy 04/2024 * Hospitalization/Major Diagno stic Procedure: [facility], laparoscopic resection [...] (10-19 cigs/day) S he was born in [place], [place]. She moved to [place] at the age of 53 and has [...] BY MOUTH TWICE A DAY DIRECTED Nystatin 062185 UNIT/ML Suspension TAKE 5ML BY MOUTH 4 TIMES A DAY FOR 11 DAYS Mouth/Throat Ondansetron 4 MG Tablet Disintegrating DISSOLVE ONE TABLET BY MOUTH EVERY 8 HOURS NEEDED FOR NAUSEA AND VOMITING Oral Myrbetriq 50 MG Tablet Extended Release 24 Hour TAKE ONE TABLET BY MOUTH EVERY DAY Oral Vitamin D3 25 MCG (1000 UT) Tablet TAKE ONE TABLET BY MOUTH EVERY DAY Loratadine 10 MG Tablet 1 tablet Orally Once a day , stop date 06/30/2025Fluticasone Furoate 27.5 MCG/SPRAY Suspension 2 sprays (1 spray in each nostril) Nasally Once a day Myrbetriq 50 MG Tablet Extended Release 24 Hour 1 tablet Orally Once a day , stop date 05/01/2025Medication List reviewed and reconciled with the patientTaking [...] MOUTH TWICE A DAY DIRECTED Taking Nystatin 461003 UNIT/ML Suspension TAKE 5ML BY MOUTH 4 [...] ONE TABLET BY MOUTH EVERY DAY Taking Loratadine 10 MG Tablet 1 tablet Orally Once a day , stop date 06/30/2025Taking Fluticasone Furoate 27.5 MCG/SPRAY Suspension 2 sprays (1 spray in each nostril) Nasally Once a day Taking Myrbetriq 50 MG Tablet Extended Release 24 Hour 1 tablet Orally Once a day , stop date 05/01/2025Medication List reviewed and reconciled with the patient * Allergies: A ugmentin: brenda[Allergies Verified] Objective: * Vitals: H t: 62, Wt: 117, BMI:21.4, BP: 118/86, HR: 70, Temp: 97.3, Ht-cm: 157.48, Wt-k.07. * P ast Orders: Lab:Complete Blood Count Aut o Diff * Collection Date 01/01/2025 04/25/2024 04/24/2024 Collection Time 11:31 AM 05:36 AM 05:23 AM Order Date 01/01/2025 04/25/2024 04/24/2024 White Blood Count 9.4 (Ref Range: 4.8-10.8 X10*3/uL) 9.3 (Ref Range: 4.8-10.8 X10*3/uL) 11.4 H (Ref Range: 4.8-10.8 X10*3/uL) Red Blood Count 4.45 (Ref Range: 4.20-5.50 X10*6/uL) 3.39 L (Ref Range: 4.20-5.50 X10*6/uL) 3.21 L (Ref Range: 4.20-5.50 X10*6/uL) Hemoglobin 15.4 (Ref Range: 12.0-16.0 g/dl) 11.7 L (Ref Range: 12.0-16.0 g/dl) 11.3 L (Ref Range: 12.0-16.0 g/dl) Hematocrit 43.6 (Ref Range: 37.0-47.0 %) 33.6 L (Ref Range: 37.0-47.0 %) 32.1 L (Ref Range: 37.0-47.0 %) Mean Corpuscular Volume 98.0 (Ref Range: 80.0-98.0 fL) 99.1 H (Ref Range: 80.0-98.0 fL) 100.0 H (Ref Range: 80.0-98.0 fL) Mean Corpuscular Hemoglobin 34.6 H (Ref Range: 27.0-33.0 pg) 34.5 H (Ref Range: 27.0-33.0 pg) 35.2 H (Ref Range: 27.0-33.0 pg) Mean Corpuscular HGB Conc 35.3 H (Ref Range: 31.0-35.0 g/dl) 34.8 (Ref Range: 31.0-35.0 g/dl) 35.2 H (Ref Range: 31.0-35.0 g/dl) Red Cell Distribution Width 12.8 (Ref Range: 11.0-16.0 %) 12.7 (Ref Range: 11.0-16.0 %) 12.8 (Ref Range: 11.0-16.0 %) Platelet Count 255 (Ref Range: 160-400 X10*3/uL) 500 H (Ref Range: 160-400 X10*3/uL) 468 H (Ref Range: 160-400 X10*3/uL) Mean Platelet Volume 9.2 L (Ref Range: 9.4-12.3 fL) 9.1 L (Ref Range: 9.4-12.3 fL) 9.2 L (Ref Range: 9.4-12.3 fL) Neutrophils Percent Auto 59.9 (Ref Range: 45-73 %) 57.1 (Ref Range: 45-73 %) 59.1 (Ref Range: 45-73 %) Imm Gran Pct Auto 0.9 H (Ref Range: 0.0-0.4 %) 1.0 H (Ref Range: 0.0-0.4 %) 0.7 H (Ref Range: 0.0-0.4 %) Lymphocytes Percent Auto 29.9 (Ref Range: 20-40 %) 28.4 (Ref Range: 20-40 %) 28.1 (Ref Range: 20-40 %) Monocytes Percent Auto 6.8 (Ref Range: 2-11 %) 7.5 (Ref Range: 2-11 %) 7.0 (Ref Range: 2-11 %) Eosinophils Percent Auto 1.6 (Ref Range: 0-4 %) 5.4 H (Ref Range: 0-4 %) 4.5 H (Ref Range: 0-4 %) Basophils Percent Auto 0.9 (Ref Range: 0-2 %) 0.6 (Ref Range: 0-2 %) 0.6 (Ref Range: 0-2 %) NRBC Pct Auto 0.0 (Ref Range: 0.0-0.2 /100WBC) 0.0 (Ref Range: 0.0-0.2 /100WBC) 0.0 (Ref Range: 0.0-0.2 /100WBC) Neutrophils Absolute Auto 5.6 (Ref Range: 2.0-8.3 x10*3/uL) 5.3 (Ref Range: 2.0-8.3 x10*3/uL) 6.7 (Ref Range: 2.0-8.3 x10*3/uL) Imm Gran Abs Auto 0.08 H (Ref Range: 0.00-0.03 X10*3/uL) 0.09 H (Ref Range: 0.00-0.03 X10*3/uL) 0.08 H (Ref Range: 0.00-0.03 X10*3/uL) Lymphocytes Absolute Auto 2.8 (Ref Range: 1.2-4.9 X10*3/uL) 2.6 (Ref Range: 1.2-4.9 X10*3/uL) 3.2 (Ref Range: 1.2-4.9 X10*3/uL) Monocytes Absolute Auto 0.6 (Ref Range: 0.1-1.2 X10*3/uL) 0.7 (Ref Range: 0.1-1.2 X10*3/uL) 0.8 (Ref Range: 0.1-1.2 X10*3/uL) Eosinophils Absolute Auto 0.2 (Ref Range: 0.0-0.4 X10*3/uL) 0.5 H (Ref Range: 0.0-0.4 X10*3/uL) 0.5 H (Ref Range: 0.0-0.4 X10*3/uL) Basophils Absolute Auto 0.1 (Ref Range: 0.0-0.2 X10*3/uL) 0.1 (Ref Range: 0.0-0.2 X10*3/uL) 0.1 (Ref Range: 0.0-0.2 X10*3/uL) NRBC Abs Auto 0.000 (Ref Range: 0.0-0.012 X10*3/uL) 0.000 (Ref Range: 0.0-0.012 X10*3/uL) 0.000 (Ref Range: 0.0-0.012 X10*3/uL) * Lab:[facility] Florez l Fast * Collection Date 01/01/2025 04/25/2024 04/24/2024 Collection Time 11:31 AM 05:36 AM 05:23 AM Order Date 01/01/2025 04/25/2024 04/24/2024 Sodium 131 L (Ref Range: 135-145 mmol/L) 139 (Ref Range: 135-145 mmol/L) 138 (Ref Range: 135-145 mmol/L) Bilirubin Total 0.7 (Ref Range: 0.0-1.0 mg/dL) 0.4 (Ref Range: 0.0-1.0 mg/dL) 0.3 (Ref Range: 0.0-1.0 mg/dL) Aspartate Amino Transferase 40 H (Ref Range: 5-31 U/L) 13 (Ref Range: 5-31 U/L) 18 (Ref Range: 5-31 U/L) Alanine Aminotransferase 32 H (Ref Range: 0-31 U/L) 11 (Ref Range: 0-31 U/L) 12 (Ref Range: 0-31 U/L) Total Protein 8.5 H (Ref Range: 6.5-8.0 g/dL) 6.2 L (Ref Range: 6.5-8.0 g/dL) 5.9 L (Ref Range: 6.5-8.0 g/dL) Albumin Level 4.9 (Ref Range: 3.5-5.0 g/dL) 3.3 L (Ref Range: 3.5-5.0 g/dL) 3.1 L (Ref Range: 3.5-5.0 g/dL) Alkaline Phosphatase 74 (Ref Range: 39-117 U/L) 43 (Ref Range: 39-117 U/L) 36 L (Ref Range: 39-117 U/L) Potassium 4.2 (Ref Range: 3.3-5.1 mmol/L) 3.3 (Ref Range: 3.3-5.1 mmol/L) 3.7 (Ref Range: 3.3-5.1 mmol/L) Chloride 101 (Ref Range: 96-108 mmol/L) 104 (Ref Range: 96-108 mmol/L) 104 (Ref Range: 96-108 mmol/L) Carbon Dioxide 21 L (Ref Range: 22-29 mmol/L) 24 (Ref Range: 22-29 mmol/L) 27 (Ref Range: 22-29 mmol/L) Anion Gap 13 (Ref Range: 12-20) 14 (Ref Range: 12-20) 11 L (Ref Range: 12-20) Blood Urea Nitrogen 5 L (Ref Range: 9-16 mg/dL) 3 L (Ref Range: 9-16 mg/dL) 3 L (Ref Range: 9-16 mg/dL) Creatinine 0.55 (Ref Range: 0.5-1.4 mg/dL) 0.45 L (Ref Range: 0.5-1.4 mg/dL) 0.42 L (Ref Range: 0.5-1.4 mg/dL) Estimated Glomerular Filt Rate > 60 > 60 > 60 Glucose Fasting 91 (Ref Range: 60-99 mg/dL) 89 (Ref Range: 60-99 mg/dL) 83 (Ref Range: 60-99 mg/dL) Calcium 10.0 (Ref Range: 8.4-10.2 mg/dL) 9.2 (Ref Range: 8.4-10.2 mg/dL) 8.5 (Ref Range: 8.4-10.2 mg/dL) Creatinine Clr Calc Pharmacy NR 105.1 112.6 * Lab:Lipid Panel * Collection Date 01/01/2025 03/20/2024 01/26/2023 Collection Time 11:31 AM 07:30 AM 11:21 AM Order Date 01/01/2025 03/20/2024 01/26/2023 Triglycerides 114 (Ref Range: <150 mg/dL) 98 (Ref Range: <150 mg/dL) 71 (Ref Range: mg/dL) Cholesterol 192 (Ref Range: <200 mg/dL) 151 (Ref Range: <200 mg/dL) 174 (Ref Range: mg/dL) LDL Cholesterol Calculated 106 H (Ref Range: <100 mg/dL) 78 (Ref Range: <100 mg/dL) 97 (Ref Range: mg/dl) HDL Cholesterol 64 (Ref Range: >40 mg/dL) 54 (Ref Range: >40 mg/dL) 63 (Ref Range: mg/dL) ???Lab:SLIDE REVIEW (Order Date - 01/01/2025) (Collection Date & Time - 01/01/2025 11:31 AM)?ValueReference Range?SLIDE REVIEWVERIFIED- * Examination: G eneral Examination: GENERAL APPEARANCE: [...] vascular bruits. LUNGS: , diminished breath sounds throughout. BREASTS: N ot examined. ABDOMEN: b owel sounds normal, no ascites, no organomegaly, no mass. RECTAL EXAM: n ot examined. MUSCULOSKELETAL: H ealing fracture right third finger, decreased range of motion lumbar spine. PERIPHERAL PULSES: n ormal. NEUROLOGIC: a lert and oriented, cranial nerves 2-12 grossly intact, deep tendon reflexes 2+ symmetrical, motor strength normal upper and lower extremities, sensory exam intact. PSYCH: a lert, oriented, mood depressed, thought process logical, goal directed, speech clear, cognitive function intact, good eye contact. ? Assessment: * Assessment: 1. D egenerative disc disease at L5-S1 level - M51.37 (Primary) N otes :She has had several MRIs in the past for ppain like this. She has done nothing she can think of to cause this exacerbation. 2 . E ssential hypertension - I10 N otes :Her blood pressure is normal. No change in her regimen is needed. 3 . U rinary incontinence - R32 N otes :She has been to see urology and had the cystoscopy. Apparently there were no significant findings. We have requested the note. She has had no hematuria. I refilled her myrbetrig. 4 . C ervical spondylosis - M47.812 [...] pain does not improve rapidly. 6 . S cipriano stenosis of lumbar region, unspecified whether neurogenic claudication present - M48.061 N otes :She will refrain from heavy lifting. If necessary, she will see surgery. 7 . P rimary insomnia - F51.01 N otes :We discussed melatonin. She will continue on current therapy. 8 . U reterolithiasis - N20.1 N otes :This diagnosis was made in [place] had an episode of renal colic. In recent years she has had no recurrence. She is not aware of any history of hypercalcemia or hyperuricemia. 9 . H yperlipidemia - E78.5 N otes :Comprehensive blood work with a fasting lipid profile will be done tomorrow morning. 1 0. T obacco dependence - F17.200 N otes :She has been seen by the gastroenterology consult nontender evaluation is in progress. 1 1. C losed nondisplaced fracture of phalanx of finger, unspecified finger, unspecified phalanx, initial encounter - S62.609A N otes :I suspect that there are fractures in the fingers of the right hand which are swollen and have limited flexion. I ordered an x-ray. She will need a consultation from hand surgery. 1 2. S easonal allergies - J30.2 N otes :I prescribed loratadine and flonase. Plan: * Treatment: 2. O thers Continue [...] A DAY DIRECTED; C ontinue Nystatin Suspension, 301814 UNIT/ML, TAKE 5ML BY MOUTH 4 TIMES A DAY FOR 11 DAYS, Mouth/Throat; C ontinue Ondansetron Tablet Disintegrating, 4 MG, DISSOLVE ONE TABLET BY MOUTH EVERY 8 HOURS NEEDED FOR NAUSEA AND VOMITING, Oral. * Procedure Codes: * Preventive Medicine: Counseling: S moking/Tobacco Use Patient counseled on the dangers of tobacco use and urged to quit. 0 03/05/2025 Patient Lifestyle Goals P atient wants to quit Treatment Goals S et a quit date, Cut down by 1 cigarette a week Barriers S tress, Social smoker Self-Management Plan M [place] a plan to cut down number of cigarettes over time and set a date to work towards quitting * Follow Up: 2 Months (Reason: OV) * Images: * Sign off status: Completed true * Provider: Nata Strong MD Date: 0 03/05/2025 Generated for Sajan roberts/Crystal/eTrochellesmitting on: 0 05/16/2025 08:27 AM EDT History [...] vascular bruits LUNGS: , diminished breath sounds throughout ABDOMEN: bowel sounds normal, no ascites, no organomegaly, no mass NEUROLOGIC: alert and oriented, cranial nerves 2-12 grossly intact, deep tendon reflexes 2+ symmetrical, motor strength normal upper and lower extremities, sensory exam intact SKIN: no suspicious lesion s, anicteric PERIPHERAL PULSES: normal BREASTS: Not examined MUSCULOSKELETAL: Healing fracture rig ht third finger, decreased range of motion lumbar spine LYMPH NODES: no enlarged lymph no ami,spleen normal RECTAL EXAM: not examined PSYCH: alert, oriented, moo d depressed, thought process logical, goal directed, speech clear, cognitive function intact, good eye contact ORAL CAVITY: normal, unremarkable
--- OUTSIDE RECORDS SUMMARY | 2025-05-14 07:15 | XMS_ITS ---
Author Organization Paresh Strong III, MD Address [address] [facility] [place] [place] [address] Care Team Providers Care Security Investigator Name Role Phone Paresh Strong Primary Care Provider [phone] Allergies Allergen (clinical drug ingredient) Drug/Non Drug Allergy documented on EMR Reaction Allergy Type Onset Date Status amoxicillin / clavulanate Augmentin vomiting Drug Allergy Active REASON FOR VISIT Follow up Medications Medication SIG (Take, Route, Frequency, Duration) Notes Start Date End Date Status Loratadine 10 MG 1 tablet Orally Once a day 01/01/2025 Active Fluticasone Furoate 27.5 MCG/SPRAY 2 sprays (1 spray in each nostril) Nasally Once a day 01/01/2025 Active Ibuprofen 400 MG 1 tablet with food o r milk if needed Orally four times a day for 21 days 05/14/2025 09/16/2025 Active Myrbetriq 50 MG 1 tablet Orally Once a day 01/01/2025 Active Ventolin HFA 108 (90 Base) MCG/ACT two puffs Inhalation every 4 hrs for shortness of breath 05/08/2024 Active Metoprolol Tartrate 25 MG TAKE ONE HALF TABLET BY MOUTH TWICE DAILY Oral Twice a day Active Oyster Shell Calcium 500 MG TAKE ONE TABLET BY MOUTH TWICE A DAY DIRECTED Active Nystatin 787745 UNIT/ML TAKE 5ML BY MOUT H 4 TIMES A DAY FOR 11 DAYS Mouth/Throat Active Ondansetron 4 MG DISSOLVE ONE TABLET BY MOUTH EVERY 8 HOURS NEEDED FOR NAUSEA AND VOMITING Oral Active Vitamin D3 25 MCG (1000 [...] cigarette smoker (10-19 cigs/day) Vital Signs Temperature 97.9 degrees Fahrenheit 05/14/20 25 Blood pressure systolic 135 mm Hg 05/14/20 25 Blood pressure diastolic 89 mm Hg 025 Heart Rate 84 /min 05/14/2025 Height 62 in 05/14/2025 Weight 117 lbs 05/14/2025 BMI 21.4 kg/m2 05/14/2025 Encounters Encounter Location Date Provider Diagnosis Paresh Strong III, MD [address] [place] [address] [place] [address] 05/14/2025 Paresh Strong Essential hypertensi on I10 Assessments Encounter Date Diagnosis (ICD Code) Assessment Notes Treat ment Notes Treatment Clinical Notes 05/14/2025 Essential hypertension (ICD-10 - I10) Plan Of Treatment Medication Medication Name Sig Start Date Stop Date Notes Loratadine 10 MG 1 tablet Orally Once a day 01/01/2025 Fluticasone Furoate 27.5 MCG/SPRAY 2 sprays (1 spray in each nostril) Nasally Once a day 01/01/2025 Ibuprofen 400 MG 1 tablet with food o r milk if needed Orally four times a day for 21 days 05/14/2025 09/16/2025 Myrbetriq 50 MG 1 tablet Orally Once a day 01/01/2025 Ventolin HFA 108 (90 Base) MCG/ACT two puffs Inhalation every 4 hrs for shortness of breath 05/08/2024 Metoprolol Tartrate 25 MG TAKE ONE HALF TABLET BY MOUTH TWICE DAILY Oral Twice a day Oyster Shell Calcium 500 MG TAKE ONE TAB LET BY MOUTH TWICE A DAY DIRECTED Nystatin 211148 UNIT/ML TAKE 5ML BY MOUT H 4 TIMES A DAY FOR 11 DAYS Mouth/Throat Ondansetron 4 MG DISSOLVE ONE TABLET BY MOUTH EVERY 8 HOURS NEEDED FOR NAUSEA AND VOMITING Oral Vitamin D3 25 MCG (1000 UT) TAKE ONE TAB LET BY MOUTH EVERY DAY Valsartan 40 MG 1/2 tablet Orally Tw ice a day Next Appt Details Follow Up: 2 Months, Reason: OV Provider Name:Paresh Strong, 2025 11:15:00 AM, [address] [place] [address] [address], [place], [address], Provider Name:Paresh Strong, 11/24/2025 11:00:00 AM, [address] [place] [address] [address], [place], [address], Progress Notes * Cathie THAKKAR CDOB:[birth year] (59 yo F)Acc No.[id number]:05/14/2025 Progress Notes Patient: Cathie HOSKINS Provider: Nata Strong MD :[id number] A ge:59 Y S ex:Female Date:05/14/2025 Address:[address] [place] [id number] Subjective: * Chief Complaints: * 1 . Follow up. * HPI: C OVID-19 Screening: ct next sat then ent in june - jaw pain and cracking, cold sweats for 5 days with tachy, l ower back is painful as alwaysw, hard to walk thinking about cane, pain all over, w eight same. Questions H ave you had any new onset fever, chills, cough, congestion, sore throat, shortness of breath, muscle aches? N o * ROS: G eneral/Constitutional: pain o nly normal aches and pains. C hills d enies.?Fatigue a dmits. F [...] Depressed mood d enies. * Medical History: D isabled from degenerative disease of the spine, Fibromyalgia, Lumbar radiculopathy, Cervical spondylosis, Lumbar spinal stenosis, Urinary incontinence, History of pyelonephritis, Frequent urinary tract infections, Allergic to Augmentin, Urinary incontinence, Tobacco dependence, History of hypertension, Insomnia, Last menstrual period 2014, History of ureterolithiasis, Fractured Second third and fourth fingers Right hand November 2024. * Surgical History: F acial reconstruction , Right knee patella reconstruction , Bilateral hip surgery , Etopic , right salpingectomy , History of colonoscopy , Last menstrual period 2014 , Sigmoid Colectomy 04/2024. * Hospitalization/Major Diagno stic Procedure: [facility], laparoscopic resection of colon 2023. * Family History: F ather: , diagnosed [...] (10-19 cigs/day) S he was born in [place], [place]. She moved to [place] at the age of 53 and has just returned due to the of Kyle,a significant other, from esophageal cancer. She has 3 children, Shayne 40, Mariana 36, Nyasia 33. She has 10 grandchildren. She is unemployed and disabled at this time due to degenerative disease of the spine. She is now single. * Medications: T bobg Valsartan 40 MG Tablet 1/2 tablet Orally [...] TWICE A DAY DIRECTED , Taking Nystatin 699813 UNIT/ML Suspension TAKE 5ML BY MOUTH 4 TIMES A DAY FOR 11 DAYS Mouth/Throat , Taking Ondansetron 4 MG Tablet Disintegrating DISSOLVE ONE TABLET BY MOUTH EVERY 8 HOURS NEEDED FOR NAUSEA AND VOMITING Oral , Taking Loratadine 10 MG Tablet 1 tablet Orally Once a day , Taking Fluticasone Furoate 27.5 MCG/SPRAY Suspension 2 sprays (1 spray in each nostril) Nasally Once a day , Taking Myrbetriq 50 MG Tablet Extended Release 24 Hour 1 tablet Orally Once a day , Taking Vitamin D3 25 MCG (1000 UT) Tablet TAKE ONE TABLET BY MOUTH EVERY DAY , Discontinued Myrbetriq 50 MG Tablet Extended Release 24 Hour TAKE ONE TABLET BY MOUTH EVERY DAY Oral , Medication List reviewed and reconciled with the patient * Allergies: A ugmentin: vomiting. Objective: * Vitals: H t: 62, Wt: 117, BMI:21.4, BP: 135/89, HR: 84, Temp: 97.9, Ht-cm: 157.48, Wt-k.07. * Examination: G eneral Examination: GENERAL APPEARANCE: p leasant, well nourished, well developed, in no acute distress, calm and relaxed. HEAD: a traumatic, normocephalic. EYES: e yanick, [...] LUNGS: c lear to auscultation . BREASTS: no masses palpable bilaterally. ABDOMEN: b owel sounds normal, no ascites, no organomegaly, no mass. RECTAL EXAM: n ot examined. MUSCULOSKELETAL: e xtremities unremarkable, no clubbing, cyanosis or edema. PERIPHERAL PULSES: n ormal. NEUROLOGIC: a lert and oriented, cranial nerves 2-12 grossly intact, deep tendon reflexes 2+ symmetrical, motor strength normal upper and lower extremities, sensory exam intact. PSYCH: a lert, oriented. Assessment: * Assessment: 1. E ssential hypertension - I10 Plan: * Treatment: 2. O thers Continue [...] A DAY DIRECTED; C ontinue Nystatin Suspension, 515427 UNIT/ML, TAKE 5ML BY MOUTH 4 TIMES A DAY FOR 11 DAYS, Mouth/Throat; C ontinue Ondansetron Tablet Disintegrating, 4 MG, DISSOLVE ONE TABLET BY MOUTH EVERY 8 HOURS NEEDED FOR NAUSEA AND VOMITING, Oral. * Follow Up: 2 Months (Reason: OV) * Images: * The named appointment provid er may or may not be the originator of this progress note, and it is not deemed complete until electronically signed by the appointment provider. Sign off status: Pending * Provider: Nata Strong MD Date: 0 05/14/2025 Generated for Sajan roberts/Crystal/Carlaitting on: 05/16/2025 08:28 AM EDT History and Physical Notes * [...]
--- NOTE | ~2025-05-16 | CT_ITS ---
CLINICAL HISTORY: ATYPICAL FACIAL PAIN Exam: CT sinus without IV contrast Comparison: None Findings: Mucoperiosteal thickening of paranasal sinuses, more conspicuous involving the ethmoid sinuses, no sinus fluid or bubbly secretion. The left ostiomeatal unit, bilateral frontal sinus outflow tracts, left ostiomeatal unit are obliterated. Postsurgical changes of ethmoid sinuses noted. Maxillary sinuses clear. Nasal septal deviation to the left, bony spur on the right anteriorly. Patent nasal passage. Old fracture of the bilateral orbit medial wall. Old fracture of the right nasal bone. Orbital contents are within normal range. Imaged intracranial contents demonstrate no acute finding. No acute fracture or suspicious osseous lesion. Impression: 1. Mucoperiosteal thickening of paranasal sinuses. 2. Nasal septal deviation to the left with bony spur on the right. This document has been electronically signed by: Jennifer Rivers MD on 05/19/2025 11:03:19
--- OUTSIDE RECORDS SUMMARY | 2025-05-16 08:27 | XMS_ITS | Patient Health Record ---
Author Organization Paresh Strong III, MD Address [address] [facility] [place] [address] Care Team Providers Care Bulb Inspector Name Role Phone Paresh Strong Primary Care [...] Menstrating No XR hand RT min 3V Reviewed date:01/05/2025 01:50:04 PM Interpretation: Performing Lab: Notes/Report: [address] [address] XRay Report Signed Patient: Cathie Arguello MR#: [id number] 0 : 1965 Acct:[id number] Age/Sex: 59 / F ADM Date: 11/20/24 Loc: MICKI Attending Dr: Paresh Strong MD Ordering Physician: Paresh Strong MD Date of Service: 11/20/24 Procedure(s): XR hand RT min 3V Accession Number(s): [id number] cc: Paresh Strong MD EXAMINATION: XR HAND [...] 11/20/24 1244 DD/ 1219 TD/TT: 11/20/24 1225 Jboss Developer: [place] [address] XRay Report Signed Patient: Ross Arguello MR#: [id number] 0 : 1965 Acct:[id number] Age/Sex: 59 / F ADM Date: 11/20/24 Loc: HO.XRAY Attending Dr: Paresh Strong MD Ordering Physician: Paresh Strong MD Date of Service: 11/20/24 Procedure(s): XR salvador d RT min 3V Accession Number(s): [id number] cc: Paresh Strong MD EXAMINATION: XR HAND [...] MD 11/20/2024 12:44 PM EDT Dictated By: Parehs Dennis MD Signed By: <Electronically signed by Paresh Dennis MD in OV> 11/20/24 1244 DD/ 1219 TD/TT: 11/20/24 1225 Jboss Developer: MM tomosynthesis screening B I Reviewed date:06/09/2024 06:07:30 AM Interpretation: Performing Lab: Notes/Report: [facility]'[address] [place] [address] Mammography Report Signed Patient: Cathie Arguello MR#: [id number] 0 : 1965 Acct:[id number] Age/Sex: 58 / F ADM Date: 05/16/24 Loc: HO.MAMMO Attending Dr: Phillip Mandujano MD Ordering Physician: Phillip Mandujano MD Results: 1Negativ e Date of Service: 05/16/24 Follow Up: 1 Year From [facility] Mammogram Procedure(s): MM tomosynthesis screening BI Accession Number(s): [id number] cc: Paresh Strong MD; Phillip Mandujano MD [...] 06/01/24 1841 DD/ 1240 TD/TT: 05/16/24 1300 Jboss Developer: [place] [facility] [address] [place] [address] Mammography Report Signed Patient: Ross Arguello MR#: [id number] 0 : 1965 Acct:[id number] Age/Sex: 58 / F ADM Date: 05/16/24 Loc: HO.MAMMO Attending Dr: Phillip Mandujano MD Ordering Physician: Phillip Mandujano MD Results: 1Negativ e Date of Service: 05/16/24 Follow Up: 1 Year From Orig inal Mammogram Procedure(s): MM tomosynthesis screening BI Accession Number(s): [id number] cc: Paresh Strong MD; Phillip Mandujano MD [...] 06/01/24 1841 DD/ 1240 TD/TT: 05/16/24 1300 Jboss Developer: MAMMOGRAM DIGITAL BILATERAL SCREEN Reviewed date:11/20/2024 11:19:13 AM Interpretation:undefined Performing Lab: Notes/Report: undefined Creatinine GFR POC Reviewed date:07/24/2024 09:50:42 AM Interpretation: Performing Lab:[facility], [address] [place] [address] Notes/Report: [id number] 0.82 >60 1533 DIAZAAR Creatinine POC 0.8 0.5-1.4 mg/dL GFR POC > 60 Chronic Kidney Disease: Estimated GFR < 60 mL/min/1.73m2 Severe Kidney Disease: Estimated GFR < 15 mL/min/1.73m2 CT abdomen pelvis w con Reviewed date:08/04/2024 07:46:36 AM Interpretation: Performing Lab: Notes/Report: [address] [address] [address] Scan Report Signed Patient: Cathie Arguello MR#: [id number] 0 : 1965 Acct:[id number] Age/Sex: 59 / F ADM Date: 07/22/24 Loc: HO.CT Attending Dr: Tony Garnett MD Ordering Physician: Tony Garnett MD Date of Service: 07/22/24 Procedure(s): CT abdomen pelvis w IV con Accession Number(s): [id number] cc: Paresh Strong MD; Tony Garnett MD; [...] 07/31/24 1013 DD/ 1545 TD/TT: 07/22/24 1648 Jboss Developer: [address] [address] [address] Scan Report Signed Patient: Ross Arguello MR#: [id number] 0 : 1965 Acct:[id number] Age/Sex: 59 / F ADM Date: 07/22/24 Loc: HO.CT Attending Dr: Tony Garnett MD Ordering Physician: Tony Garnett MD Date of Service: 07/22/24 Procedure(s): CT abd omen pelvis w IV con Accession Number(s): [id number] cc: Paresh Strong MD; Tony Garnett MD; [...] 07/31/24 1013 DD/ 1545 TD/TT: 07/22/24 1648 Jboss Developer: CLAIRE jalloh 3V Reviewed date:01/05/2025 01:50:04 PM Interpretation: Performing Lab: Notes/Report: [address] [address] XRay Report Signed Patient: Cathie Arguello MR#: [id number] 0 : 1965 Acct:[id number] Age/Sex: 59 / F ADM Date: 11/27/24 Loc: HO.XRAY Attending Dr: Paresh Strong MD Ordering Physician: Paresh Strong MD Date of Service: 11/27/24 Procedure(s): XR sinus min 3V Accession Number(s): [id number] cc: Paresh Strong MD EXAMINATION: XR PARANASAL [...] 11/28/24 0826 DD/ 1203 TD/TT: 11/27/24 1222 Jboss Developer: [place] [address] XRay Report Signed Patient: Ross Arguello MR#: [id number] 0 : 1965 Acct:[id number] Age/Sex: 59 / F ADM Date: 11/27/24 Loc: HO.XRAY Attending Dr: Paresh Strong MD Ordering Physician: Paresh Strong MD Date of Service: 11/27/24 Procedure(s): XR sin us min 3V Accession Number(s): [id number] cc: Paresh Strong MD EXAMINATION: XR PARANASAL [...] 11/28/24 0826 DD/ 1203 TD/TT: 11/27/24 1222 Jboss Developer: Complete Blood Count Auto Di ff Reviewed date:01/05/2025 01:50:04 PM Interpretation: Performing Lab:[facility], [address] [place] [address] Notes/Report: White Blood Count 9.4 4.8-10.8 X10*3/uL Red Blood Count 4.45 4.20-5.50 X10*6/uL Hemoglobin 15.4 12.0-16.0 g/dl Hematocrit 43.6 37.0-47.0 % Mean Corpuscular Volume 98.0 80.0-98.0 fL Mean Corpuscular Hemoglobin 34.6 27.0-33.0 pg Mean Corpuscular HGB Conc 35.3 31.0-35.0 g/dl Red Cell Distribution Width 12.8 11.0-16.0 % Platelet Count 255 160-400 X10*3/uL Mean Platelet Volume 9.2 9.4-12.3 fL Neutrophils Percent Auto 59.9 45-73 % Imm Gran Pct Auto 0.9 0.0-0.4 % Lymphocytes Percent Auto 29.9 20-40 % Monocytes Percent Auto 6.8 2-11 % Eosinophils Percent Auto 1.6 0-4 % Basophils Percent Auto 0.9 0-2 % NRBC Pct Auto 0.0 0.0-0.2 /100WBC Neutrophils Absolute Auto 5.6 2.0-8.3 x10*3/uL Imm Gran Abs Auto 0.08 0.00-0.03 X10*3/uL Lymphocytes Absolute Auto 2.8 1.2-4.9 X10*3/uL Monocytes Absolute Auto 0.6 0.1-1.2 X10*3/uL Eosinophils Absolute Auto 0.2 0.0-0.4 X10*3/uL Basophils Absolute Auto 0.1 0.0-0.2 X10*3/uL NRBC Abs Auto 0.000 0.0-0.012 X10*3/uL White Blood Count 9.4 4.8-10.8 X10*3/uL Red Blood Count 4.45 4.20-5.50 X10*6/uL Hemoglobin 15.4 12.0-16.0 g/dl Hematocrit 43.6 37.0-47.0 % Mean Corpuscular Volume 98.0 80.0-98.0 fL Mean Corpuscular Hemoglobin 34.6 27.0-33.0 pg Mean Corpuscular HGB Conc 35.3 31.0-35.0 g/dl Red Cell Distribution Width 12.8 11.0-16.0 % Platelet Count 255 160-400 X10*3/uL Mean Platelet Volume 9.2 9.4-12.3 fL Neutrophils Percent Auto 59.9 45-73 % Imm Gran Pct Auto 0.9 0.0-0.4 % Lymphocytes Percent Auto 29.9 20-40 % Monocytes Percent Auto 6.8 2-11 % Eosinophils Percent Auto 1.6 0-4 % Basophils Percent Auto 0.9 0-2 % NRBC Pct Auto 0.0 0.0-0.2 /100WBC Neutrophils Absolute Auto 5.6 2.0-8.3 x10*3/uL Imm Gran Abs Auto 0.08 0.00-0.03 X10*3/uL Lymphocytes Absolute Auto 2.8 1.2-4.9 X10*3/uL Monocytes Absolute Auto 0.6 0.1-1.2 X10*3/uL Eosinophils Absolute Auto 0.2 0.0-0.4 X10*3/uL Basophils Absolute Auto 0.1 0.0-0.2 X10*3/uL NRBC Abs Auto 0.000 0.0-0.012 X10*3/uL CO RRECTED REPORT CO RRECTED REPORT Comprehensive [place]. Panel Fa st Reviewed date:01/05/2025 01:50:04 PM Interpretation: Performing Lab:[address] [address] Notes/Report: Sodium 131 135-145 mmol/L Potassium 4.2 [...] Alkaline Phosphatase 74 39-117 U/L Lipid Panel Reviewed date:01/05/2025 01:50:04 PM Interpretation: Performing Lab:[address] [address] Notes/Report: Triglycerides 114 <150 mg/dL Desirable Triglyceride: [...] low results in patients with liver disease. SLIDE REVIEW Reviewed date:01/05/2025 01:50:04 PM Interpretation: Performing Lab:[address], [place] [address] Notes/Report: SLIDE REVIEW VERIFIED Reason For Referral Reason Evaluate and Treat Right Hand Pain ? Fracture of Fingers 2,3 & 4 Diagnosis 1 Right hand pain (M79 .641) Referral Organization Paresh Strong III, MD Referring Provider First Name Paresh Referring Provider Last Name Strong Referring Provider Speciality Internal edicine Referred Provider Kalina De La Torre Referred Provider Specialty Hand Surgery General Notes D Priti 11/24/2024 11:39:52 AM > Referral faxed with progress note and xr Referral Priority Routine Referral Appointment Date 11/26/2024 Reason blocked left ear Diagnosis 1 Ear pain, left (H92. 02) Referral Organization Paresh Strong III, MD Referring Provider First Name Paresh Referring Provider Last Name Strong Referring Provider Speciality Internal edicine Referred Provider [facility], [facility] Referred Provider Specialty Otolaryngolo gy General Notes Kamilla Proctor CMA 12/01 10:25:29 AM > ref/progress note/x ray faxed to [facility], Kamilla Proctor CMA 01/05/2025 02:16:07 PM >Called [facility] of [facility] pt has appt on 01/20/2025 at 11:00am arrival 11:30am appt with Dr Olsen in [place] on [address] [facility] [address] [place] [address] 1st floor on right when enter building . Referral Priority Routine Referral Appointment Date 01/20/2025 Reason Evaluate and Treat Facial Injury in past to nose, eye, ear and History of surgeries Pain at site of past surgery Diagnosis 1 Atypical facial pain (G50.1) Referral Organization Paresh Strong III, MD Referring Provider First Name Paresh Referring Provider Last Name Strong Referring Provider Speciality Internal edicine Referred Provider [facility], [facility] Referred Provider Specialty Otolaryngolo gy General Notes Kamilla Proctor CMA 01/06 10:09:25 AM > I called patient she stated she is aware of this appt with Dr. Olsen 11:00am arrival appt at 11:30am in [place] office [facility] Referral Priority Routine Referral Appointment Date 01/20/2025 Medications Medication SIG (Take, Route, Frequency, Duration) [...] MOUTH TWICE A DAY DIRECTED Active Nystatin 259784 UNIT/ML TAKE 5ML BY MOUT H 4 TIMES A DAY FOR 11 DAYS Mouth/Throat Active Ondansetron 4 MG DISSOLVE ONE TABLET BY MOUTH EVERY 8 HOURS NEEDED FOR NAUSEA AND VOMITING Oral Active Immunizations Vaccine Route Administration Date Status [...] Status W/U Status Risk Notes Problem Hyperlipidemia (65001099) Hyperlipidemia (E78.5) Active confirmed Comprehensive blood work with a fasting lipid profile will be done tomorrow morning. Problem 546088125 Underweight (R63.6) Active confirmed She has lost 4 pounds with the surgery and her body mass index is now 19. We have discussed diet and nutrition. Her weight will be monitored carefully. Problem 827200879 Lumbar radiculopathy (M54.16) Active confirmed She is experiencing a flareup of the pain, likely due to nerve impingement from a disc. An MRI has been ordered and a surgical consultation may be necessary. She is gooing to use heat and rest and ibuprofen at this time. Dexamethasone will be added. If the pain does not improve rapidly. Problem 8220212 Primary insomnia (F51.01) Active confirmed We discussed melatonin. She will continue on current therapy. Problem 52770765 Ureterolithiasis (N20.1) Active confirmed This diagnosis was made in [place] had an episode of renal colic. In recent years she has had no recurrence. She is not aware of any history of hypercalcemia or hyperuricemia. Problem 38016373 Essential hypertension (I10) Active confirmed Her blood pressure is normal. No change in her regimen is needed. Problem 99389837 Tobacco dependence (F17.200) Active confirmed She has been se en by the gastroenterology consult nontender evaluation is in progress. Problem Urinary incontinence (576366064) Urinary incontinence (R32) Active confirmed She has been to see urology and had the cystoscopy. Apparently there were no significant findings. We have requested the note. She has had no hematuria. I refilled her myrbetrig. Problem 534879680 Cervical spondylosis (M47.812) Active confirmed She has chronic pain with range of motion of the neck. There is no radiculopathy. Problem Vitamin D deficiency (44927047) Vitamin D deficiency (E55.9) Active confirmed Vitamin D supplementation was discussed today. I recommended 1000 units daily. Problem 72447050 Pelvic mass (R19.00) Active confirmed She is going to see CENTRAL SUPPLY ASSISTANT tomorrow. She says she is scheduled for a biopsy of this mass as an outpatient. Problem 738135115 Seasonal allergies (J30.2) Active confirmed I prescribed loratadine and flonase. Problem 811219024 Diverticulitis (K57.92) Active confirmed She has undergo ne an elective sigmoid colectomy. She has a surgical incision from the umbilicus to pubis. The pathology shows no malignancy. There is significant postoperative pain. Additional oxycodone was prescribed. She is going to see surgery tomorrow in follow-up. Problem Constipation (76636716) Constipation (K59.00) Active confirmed Problem 43828932 Spinal stenosis of lumbar region, unspecified whether neurogenic claudication present (M48.061) Active confirmed She will refrai n from heavy lifting. If necessary, she will see surgery. Problem 60263460 Degenerative disc disease at L5-S1 level (M51.37) Active confirmed She has had several MRIs in the past for ppain like this. She has done nothing she can think of to cause this exacerbation. Problem 628792100 Mural thickening of sigmoid colon (K63.9) Active confirmed This is a findi ng on both the ultrasound and CT scan. We have requested a gastroenterology consultation or colonoscopy. She is waiting to hear from them. The rectal examination today was normal. Cystoscopy was brown and guaiac negative. There was significant pain on manipulating the uterus. Colonoscopy seems indicated. He was also referred to CENTRAL SUPPLY ASSISTANT. Problem 943727520 Recurrent sinus infections (J32.9) Active confirmed Problem 35467295 Closed nondisplaced fracture of phalanx of finger, unspecified finger, unspecified phalanx, initial encounter (S62.063O) Active confirmed I suspect that there are fractures in the fingers of the right hand which are swollen and have limited flexion. I ordered an x-ray. She will need a consultation from hand surgery. Problem 416942935 Closed displaced fracture of proximal phalanx of right index finger with delayed healing, subsequent encounter (T02.902G) Active confirmed She has 3 fractured fingers and will undergo a course of physical therapy under the supervision of the hand surgeon. The surgeon recommended non-operative therapy. Vital Signs Heart Rate 84 /min 05/14/2025 Temperature 97.9 degrees Fahrenheit 05/14/2025 Blood pressure diastolic 89 mm Hg 05/14/2025 Height 62 in 05/14/2025 Blood pressure systolic 135 mm Hg 05/14/2025 Weight 117 lbs 05/14/2025 BMI 21.4 kg/m2 05/14/2025 Encounters Encounter Location Date Provider Diagnosis Paresh Strong III, MD [address] [place] [address] [place] [address] 05/14/2025 Paresh Strong Essential hypertensi on I10 Paresh Strong III, MD [address] [place] [address] [place] [address] 05/27/2024 Paresh Strong Essential hypertensi on I10 ; Encounter for immunization Z23 ; Degenerative disc disease at L5-S1 level M51.37 ; Cervical spondylosis M47.812 ; Lumbar radiculopathy M54.16 ; Constipation K59.00 ; Mural thickening of sigmoid colon K63.9 ; Tobacco dependence F17.200 ; Hyperlipidemia E78.5 ; Adnexal mass N94.89 and Rectal mass K62.89 Paresh Strong III, MD [address] [place] [address] [place] [address] 11/20/2024 Paresh Graham hypertensi on I10 ; Closed nondisplaced fracture of phalanx of finger, unspecified finger, unspecified phalanx, initial encounter S62.192R ; Urinary incontinence R32 ; Cervical spondylosis M47.812 ; Lumbar radiculopathy M54.16 ; Spinal stenosis of lumbar region, unspecified whether neurogenic claudication present M48.061 ; Primary insomnia F51.01 ; Tobacco dependence F17.200 and Hyperlipidemia E78.5 Paresh Strong III, MD [address] [place] [address] [place] [id number] 11/27/2024 Paresh Strong Essential hypertensi on I10 ; Closed displaced fracture of proximal phalanx of right index finger with delayed healing, subsequent encounter S62.610G ; Pain of maxillary sinus J34.89 ; Degenerative disc disease at L5-S1 level M51.37 ; Lumbar radiculopathy M54.16 ; Ureterolithiasis N20.1 ; Primary insomnia F51.01 and Tobacco dependence F17.200 Paresh Strong III, MD [address] [place] [place] [address] [place] [id number] 12/04/2024 Paresh Strong Essential hypertensi on I10 ; Closed displaced fracture of proximal phalanx of right index finger with delayed healing, subsequent encounter S62.610G ; Urinary incontinence R32 ; Degenerative disc disease at L5-S1 level M51.37 ; Cervical spondylosis M47.812 ; Ureterolithiasis N20.1 ; Tobacco dependence F17.200 and Lumbar radiculopathy M54.16 Paresh Strong III, MD [address] [place] [address] [place] [id number] 01/01/2025 Paresh Strong Essential hypertensi on I10 ; Urinary incontinence R32 ; Degenerative disc disease at L5-S1 level M51.37 ; Cervical spondylosis M47.812 ; Lumbar radiculopathy M54.16 ; Hyperlipidemia E78.5 ; Vitamin D deficiency E55.9 ; Closed displaced fracture of proximal phalanx of right index finger with delayed healing, subsequent encounter S62.610G ; Seasonal allergies J30.2 and Tobacco dependence F17.200 Paresh Strong III, MD [address] [place] [place] [address] [place] [id number] 03/05/2025 Paresh Strong Essential hypertensi on I10 [...] initial encounter S62.609A and Seasonal allergies J30.2 Paresh Strong III, MD [address] [place] [place] [address] DR [place], [place] [address] 08/05/2024 Paresh Strong Assessments Encounter Date Diagnosis (ICD Code) Assessment Notes T reatment Notes Treatment Clinical Notes 05/14/2025 Essential hypertension (ICD-10 - I10) 05/27/2024 Encounter for immunization (ICD-10 - Z23) [...] under the supervision of the hand surgeon. 01/01/2025 Essential hypertension (ICD-10 - I10) Her blood pressure is 126/79. No change in her regimen is needed. 01/01/2025 Urinary incontinence (ICD-10 - R32) She has been to see urology and had the cystoscopy. Apparently there were no significant findings. We have requested the note. She has had no hematuria. I refilled her myrbetrig. 03/05/2025 Essential hypertension (ICD-10 - I10) Her [...] the note. She has had no hematuria. 01/01/2025 Degenerative disc disease at L5-S1 level [...] had no hematuria. I refilled her myrbetrig. 05/27/2024 Cervical spondylosis (ICD-10 - M47.812) She [...] the neck. There is no radiculopathy. 03/05/2025 Cervical spondylosis (ICD-10 - M47.812) She has chronic pain with range of motion of the neck. There is no radiculopathy. 05/27/2024 Lumbar radiculopathy (ICD-10 - M54.16) She [...] the pain does not improve rapidly. 03/05/2025 Lumbar radiculopathy (ICD-10 - M54.16) She is experiencing a flareup of the pain, likely due to nerve impingement from a disc. An MRI has been ordered and a surgical consultation may be necessary. She is gooing to use heat and rest and ibuprofen at this time. Dexamethasone will be added. If the pain does not improve rapidly. 05/27/2024 Constipation (ICD-10 - K59.00) 11/20/2024 Spinal stenosis of lumbar region, unspecified whether neurogenic claudication present (ICD-10 - M48.061) She will refrain from heavy lifting. If necessary, she will see surgery. 11/27/2024 Ureterolithiasis (ICD-10 - N20.1) This diagnosis was made in [place] had an episode of renal colic. In recent years she has had no recurrence. She is not aware of any history of hypercalcemia or hyperuricemia. 12/04/2024 Ureterolithiasis (ICD-10 - N20.1) This diagnosis was made in [place] had an episode of renal colic. In recent years she has had no recurrence. She is not aware of any history of hypercalcemia or hyperuricemia. 01/01/2025 Hyperlipidemia (ICD-10 - E78.5) Comprehensive blood work with a fasting lipid profile will be done tomorrow morning. 03/05/2025 Spinal stenosis of lumbar region, unspecified whether neurogenic claudication present (ICD-10 - M48.061) She will refrain from heavy lifting. If necessary, she will see surgery. 05/27/2024 Mural thickening of sigmoid colon (ICD-10 - K63.9) This is a finding on both the ultrasound and CT scan. We have requested a gastroenterology consultation or colonoscopy. She is waiting to hear from them. The rectal examination today was normal. Cystoscopy was brown and guaiac negative. There was significant pain on manipulating the uterus. Colonoscopy seems indicated. He was also referred to [facility]TRAL SUPPLY ASSISTANT. 11/20/2024 Primary insomnia (ICD-10 - F51.01) We discussed melatonin. She will continue on current therapy. 11/27/2024 Primary insomnia (ICD-10 - F51.01) We discussed melatonin. She will continue on current therapy. 12/04/2024 Tobacco dependence (ICD-10 - F17.200) She has been seen by the gastroenterology consult nontender evaluation is in progress. 01/01/2025 Vitamin D deficiency (ICD-10 - E55.9) Vitamin D supplementation was discussed today. I recommended 1000 units daily. 03/05/2025 Primary insomnia (ICD-10 - F51.01) We discussed melatonin. She will continue on current therapy. 05/27/2024 Tobacco dependence (ICD-10 - F17.200) She [...] the pain does not improve rapidly. 01/01/2025 Closed displaced fracture of proximal phalanx of right index finger with delayed healing, subsequent encounter (ICD-10 - S62.610G) She has 3 fractured fingers and will undergo a course of physical therapy under the supervision of the hand surgeon. The surgeon recommended non-operative therapy. 03/05/2025 Ureterolithiasis (ICD-10 - N20.1) This diagnosis was made in [place] had an episode of renal colic. In recent years she has had no recurrence. She is not aware of any history of hypercalcemia or hyperuricemia. 05/27/2024 Hyperlipidemia (ICD-10 - E78.5) Comprehensive blood work with a fasting lipid profile will be done tomorrow morning. 11/20/2024 Hyperlipidemia (ICD-10 - E78.5) Comprehensive blood work with a fasting lipid profile will be done tomorrow morning. 01/01/2025 Seasonal allergies (ICD-10 - J30.2) I prescribed loratadine and flonase. 03/05/2025 Hyperlipidemia (ICD-10 - E78.5) Comprehensive blood work with a fasting lipid profile will be done tomorrow morning. 05/27/2024 Adnexal mass (ICD-10 - N94.89) This issue is currently being addressed by C[facility]TRAL SUPPLY ASSISTANT. 01/01/2025 Tobacco dependence (ICD-10 - F17.200) She has been seen by the gastroenterology consult nontender evaluation is in progress. 03/05/2025 Tobacco dependence (ICD-10 - F17.200) She has been seen by the gastroenterology consult nontender evaluation is in progress. 05/27/2024 Rectal mass (ICD-10 - K62.89) This was seen again on the MRI as well as the CT scan. She has appointment with the surgeon within the next 7 days. 03/05/2025 Closed nondisplaced fracture of phalanx of finger, unspecified finger, unspecified phalanx, initial encounter (ICD-10 - S62.609A) I suspect that there are fractures in the fingers of the right hand which are swollen and have limited flexion. I ordered an x-ray. She will need a consultation from hand surgery. 03/05/2025 Seasonal allergies (ICD-10 - J30.2) I prescribed loratadine and flonase. Plan Of Treatment Pending Test Test Name Order Date PROFILE, FASTING (COMPREHENSIVE METABOLI C) 11/20/2024 PROFILE, FASTING (COMPREHENSIVE METABOLI C) 11/20/2023 CBC w DIFF 11/20/2023 CBC w DIFF 11/20/2024 URINALYSIS (UA) 02/21/2024 URINE CULTURE 02/21/2024 MRI LUMBAR SPINE NO CONTRAST 07/24/2023 BONE DENSITY DEXA 10/16/2022 MAMMOGRAM DIGITAL BILATERAL SCREEN 10/16 Lipid Panel 11/20/2024 Lipid Panel 11/20/2023 MM tomosynthesis screening BI 11/20/2023 Next Appt Details Provider Name:Paresh Strong, 2025 11:15:00 AM, [address] [facility] [address], [place], [address], Provider Name:Paresh Strong, 11/24/2025 11:00:00 AM, [address] [place] [address] [address], [place], [address], Insurance Providers Payer Name Payer Address Payer Phone Subscriber Number Group Number Insured Name Patient Relationship to Insured Coverage Start Date Coverage End Date [employer] [address] [address] [place] [address] [id number] Cathie Arguello Self - patient is the insured [place] [address] [place], [place] [id number] Cathie Arguello Self - patient is the [...] reconstruction Facial reconstruction Hospitalization History Reason Date(Month/Year) [facility], laparoscopic res ection of colon 2023
== END 2025-05-16 08:24 | disposition home or self-care (01) ==
LOC: HO.CT 08:23
PROVIDERS: PCP Internal Medicine Medical Oncology; Visit Provider Otolaryngology
DX: G50.1 Atypical facial pain (principal)
CPT/HCPCS: 70486

== ENCOUNTER → 2025-05-16 08:43 | Outpatient (BNV) | payer OTHER, SELFPAY | PROVIDERS: PCP Internal Medicine Medical Oncology; Visit Provider Radiology Diagnostic Radiology | DX: J34.2 Deviated nasal septum (principal) | CPT/HCPCS: 70486 ==